=== PATIENT | male | born 1965 | race Caucasian/White ===

== ENCOUNTER 2023-03-11 10:41 | Emergency (ER) | payer BC, SELFPAY ==
[2023-03-11 10:47] VITALS: BP 141/101; PULSE 61; RESP 12; TEMP 36.5; O2SAT 96; BMI 32.5
[2023-03-11 10:50] VITALS: BP 141/101; PULSE 55; RESP 12; O2SAT 93
--- NOTE | 2023-03-11 10:55 | ED.DIZZY1 ---
HPI - Dizziness General Chief Complaint: Dizziness Stated Complaint: DIZZINESS Time Seen by Provider: 03/11/23 10:55 Source: patient Mode of arrival: walk-in History of Present Illness HPI Narrative: Patient Onset of the emergency department complaining of dizziness. Patient states he woke up this morning feeling like he is drunk. He has not drank any alcohol. He has not had any trauma. Feels like he has an ear infection but denies any ear pain, nasal congestion or upper respiratory infection symptoms. Denies any palpitations, diaphoresis. Patient called his doctor and was told to come to the emergency department since he is being set up as an outpatient for valve replacement at [facility]. Patient denies any chest pain, shortness of breath. He states the dizziness is worse when he is sitting up or moves position.Patient denies any fever, or chills. He denies any sore throat. He denies any cough. He denies any nausea, vomiting, diarrhea, constipation, or abdominal pain. Related Data Home Medications Medication Instructions Recorded Confirmed Lactobacillus acidophilus 500 500 mmu cells PO DAILY 03/11/23 03/11/23 million cell tablet ascorbic acid (vitamin C) 500 mg 500 mg PO DAILY 03/11/23 03/11/23 tablet,extended release (C Complex) cinnamon bark 500 mg capsule 500 mg PO DAILY 03/11/23 03/11/23 (Cinnamon) diclofenac sodium 75 mg 75 mg PO Q12H 03/11/23 03/11/23 tablet,delayed release ezetimibe 10 mg tablet 10 mg PO DAILY 03/11/23 03/11/23 hydrocodone 5 mg-acetaminophen 325 1 tab PO Q4H 03/11/23 03/11/23 mg tablet pantoprazole 40 mg tablet,delayed 40 mg PO DAILY 03/11/23 03/11/23 release simvastatin 20 mg tablet 20 mg PO DAILY 03/11/23 03/11/23 Previous Rx's Medication Instructions Recorded meclizine 25 mg tablet 25 mg PO DAILY PRN dizziness or 03/11/23 vertigo #20 tabs Allergies Allergy/AdvReac Type Severity Reaction Status Date / Time No Known Drug Allergies Allergy Verified 03/11/23 10:52 Review of Systems ROS Status of ROS 10 or more systems reviewed and unremarkable except as noted in history and below Exam Narrative Exam Narrative: Nurses notes and vital signs reviewed and patient is not hypoxic. General: Nontoxic, Well-appearing and in no apparent distress. Skin: Warm, dry, no pallor noted. No Rash Head: Normocephalic, atraumatic. Neck: Supple, non-tender. Eye: Pupils are equal, round and EOMI. No scleral icterus. Ears, Nose, Mouth, and Throat: TM clear, Bilateral cerumen, no posterior oropharynx erythema or nasal mucosal hypertrophy, uvula is mid-line Oral mucosa is moist Cardiovascular: Regular Rate and Rhythm without murmur, gallop or rub. Respiratory: No accessory muscle use or respiratory distress. Lungs are clear to auscultation, no wheezing, rales or rhonchi Chest Wall: no tenderness Back: No midline thoracic or lumbar vertebral tenderness. No CVA tenderness Musculoskeletal: normal ROM, no calf or popliteal tenderness, no lower extremity edema/swelling GI: Abdomen is soft, non-distended. Normal bowel sounds. No masses appreciated. No tenderness to palpation. No rebound, guarding, or rigidity noted. Neurological: A&O x4. No cranial nerve dysfunction observed. No truncal ataxia. Moves all extremities. Sensation intact. Psychiatric: Cooperative and interactive. Normal mood and affect. Constitutional Vital Signs - 24 hr 03/11/23 10:47 03/11/23 10:50 03/11/23 12:02 Temperature 97.7 F Pulse Rate 55 L 54 L Pulse Rate [Monitor] 61 Respiratory Rate 12 12 16 Blood Pressure 141/101 H 158/98 H Blood Pressure [Right Arm] 141/101 H Pulse Oximetry 96 93 L 93 L Oxygen Delivery Method Room Air Course Vital Signs Vital signs: Vital Signs Temperature 97.7 F 03/11/23 10:47 Pulse Rate 61 03/11/23 10:47 Respiratory Rate 12 03/11/23 10:47 Blood Pressure 141/101 H 03/11/23 10:47 Pulse Oximetry 96 03/11/23 10:47 Oxygen Delivery Method Room Air 03/11/23 10:47 Temperature 97.7 F 03/11/23 10:47 Pulse Rate 54 L 03/11/23 12:02 Respiratory Rate 16 03/11/23 12:02 Blood Pressure 158/98 H 03/11/23 12:02 Pulse Oximetry 93 L 03/11/23 12:02 Oxygen Delivery Method Room Air 03/11/23 10:47 MDM - Dizziness MDM Narrative Medical decision making narrative: Patient was given Antivert. Cardiac workup and CT scan of the brain were ordered. Patient was given 1 L normal saline.His dizziness improved with Antivert. He was able to get up and walked about without any ataxia. Differential Diagnosis Differential diagnosis: Likely benign paroxysmal positional vertigo, orthostatic hypotension and acute vestibular neuronitis Lab Data Attestation: I reviewed the patient's lab results. Labs: Lab Results 03/11/23 Range/Units 10:57 WBC 5.9 (4.0-11.0) 10^3/uL RBC 5.67 (4.70-6.10) 10^6/uL Hgb 15.5 (14.0-18.0) g/dL Hct 46.9 (42.0-54.0) % MCV 82.7 (80.0-94.0) fL MCH 27.3 (25.9-34.0) pg MCHC 33.0 (29.9-35.2) g/dL RDW 13.9 (11.0-15.0) % Plt Count 210 (150-450) 10^3/uL MPV 10.5 (9.5-13.5) fL Neut % (Auto) 49.9 (43.0-75.0) % Lymph % (Auto) 39.0 (20.5-60.0) % Canadian % (Auto) 7.6 (1.7-12.0) % Eos % (Auto) 2.5 (0.9-7.0) % Baso % (Auto) 0.5 (0.2-2.0) % Neut # (Auto) 3.0 (1.4-6.5) 10^3/uL Lymph # (Auto) 2.3 (1.2-3.8) 10^3/uL Canadian # (Auto) 0.5 (0.3-0.8) 10^3/uL Eos # (Auto) 0.2 (0.0-0.7) 10^3/uL Baso # (Auto) 0.0 (0.0-0.1) 10^3/uL Abs Immat Gran (auto) 0.03 (0.00-0.03) 10^3/uL Imm/Tot Granulo (auto) 0.5 (0.0-0.5) % Sodium 141 (136-145) mmol/L Potassium 4.4 (3.5-5.1) mmol/L Chloride 104 (98-107) mmol/L Carbon Dioxide 24.3 (21.0-32.0) mmol/L Anion Gap 17.1 BUN 15.0 (7.0-18.0) mg/dL Creatinine 1.15 (0.70-1.30) mg/dL Est GFR ( Amer) >60 (>=60) Est GFR (Non-Af Amer) >60 (>=60) BUN/Creatinine Ratio 13.0 Glucose 109 H (74-106) mg/dL Calcium 8.6 (8.5-10.1) mg/dL Magnesium 2.0 (1.8-2.4) mg/dL Total Bilirubin 0.6 (0.2-1.0) mg/dL AST 41 H (15-37) U/L ALT 70 H (16-63) U/L Alkaline Phosphatase 60 (46-116) U/L Total Creatine Kinase 227 (39-308) U/L CK-MB (CK-2) 1.71 (<=3.60) ng/mL Myoglobin 66 (16-96) ng/mL Troponin I High Sens 7.3 (4.0-76.1) pg/mL Total Protein 6.9 (6.4-8.2) g/dL Albumin 3.8 (3.4-5.0) g/dL Globulin 3.1 g/dL Albumin/Globulin Ratio 1.2 ECG Data Attestation: I personally reviewed and interpreted this ECG as follows: Discharge Plan Discharge Chief Complaint: Dizziness Clinical Impression: Dizziness, BP (high blood pressure) Patient Disposition: Home, Self-Care Time of Disposition Decision: 13:27 Condition: Good Mode of Transportation: Private Vehicle Prescriptions / Home Meds: New meclizine 25 mg tablet 25 mg PO DAILY PRN (Reason: dizziness or vertigo) Qty: 20 0RF No Action simvastatin 20 mg tablet 20 mg PO DAILY pantoprazole 40 mg tablet,delayed release (DR/EC) 40 mg PO DAILY diclofenac sodium 75 mg tablet,delayed release (DR/EC) 75 mg PO Q12H ezetimibe 10 mg tablet 10 mg PO DAILY hydrocodone-acetaminophen 5-325 mg tablet 1 tab PO Q4H Lactobacillus acidophilus 500 million cell tablet 500 mmu cells PO DAILY ascorbic acid (vitamin C) [C Complex] 500 mg tablet extended release 500 mg PO DAILY cinnamon bark [Cinnamon] 500 mg capsule 500 mg PO DAILY Instructions: Dizziness (ED) Additional Instructions: high blood Stand Alone Forms: Portal Instructions Referrals: Giovanni Velasquez MD [Primary Care Provider] - 1 week AKI CORNELL [Physician] - 1 week
--- NOTE | 2023-03-11 11:21 | ECG_ITS ---
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
--- NOTE | 2023-03-11 11:22 | CT_ITS ---
The [address] [address] Patient Name: FLYNN ARNETT MRN: [id number] date: 1965 Sex: M Assigned Patient Location: ER Current Patient Location: ER Accession/Order Number: [id number] Exam Date: 03/11/2023 11:40 Report Date: 03/11/2023 11:59 At the request of: STACY ESTES Procedure: CT head/brain wo con EXAM: CT head/brain wo con HISTORY: dizziness COMPARISON: None. TECHNIQUE: Axial soft tissue and bone windows through the calvarium with coronal and sagittal reformats. CT dose reduction technique was used including Automated Exposure Control. FINDINGS: There is mild mucosal thickening with partial opacification of the anterior ethmoid air cells. The remainder of the paranasal sinuses and mastoid air cells are well aerated. No air-fluid levels. No extra-axial fluid collection. No intra-axial or extra-axial bleed. No mass effect or midline shift. The richards-white matter differentiation is preserved. There are subtle supratentorial deep white matter low attenuation lesions which are nonspecific but commonly attributed to chronic small vessel ischemic disease. The brain parenchymal volume is mildly reduced yet likely age-appropriate. The ventricles are nondilated. The basal cisterns are patent. The craniovertebral junction is unremarkable. IMPRESSION: 1. No acute intracranial abnormality. Electronically authenticated by: GLORIA STRANGE Date: 03/11/2023 11:59
--- NOTE | 2023-03-11 11:22 | XR_ITS ---
[address] [address] Patient Name: FLYNN ARNETT MRN: [id number] date: 1965 Sex: M Assigned Patient Location: ER Current Patient Location: ER Accession/Order Number: [id number] Exam Date: 03/11/2023 11:47 Report Date: 03/11/2023 12:04 At the request of: STACY ESTES Procedure: XR chest 2V EXAMINATION: XR chest 2V HISTORY: dizziness , chest pressure COMPARISON: XR chest 06/10/2017 FINDINGS: LUNGS: No significant pulmonary parenchymal abnormalities. VASCULATURE: No increased pulmonary vasculature. PLEURA: No pneumothorax, effusion, or pleural thickening. CARDIAC: No cardiomegaly or cardiac silhouette abnormality. MEDIASTINUM: No visible mass or adenopathy. BONES: No fracture or visible bone lesion. OTHER: Negative. IMPRESSION: 1. Normal examination. Electronically authenticated by: GILES LOYOLA Date: 03/11/2023 12:04
[2023-03-11 11:34] LABS: Basophils Percent Auto 0.5 % (0.2-2.0); Eosinophils Absolute Auto 0.2 10^3/uL (0.0-0.7); Eosinophils Percent Auto 2.5 % (0.9-7.0); Hematocrit 46.9 % (42.0-54.0); Hemoglobin 15.5 g/dL (14.0-18.0); Immature Granulocytes Abs Auto 0.03 10^3/uL (0.00-0.03); Immature Granulocytes Pct Auto 0.5 % (0.0-0.5); Lymphocytes Absolute Auto 2.3 10^3/uL (1.2-3.8); Mean Corpuscular Hemoglobin 27.3 pg (25.9-34.0); Mean Corpuscular Volume 82.7 fL (80.0-94.0); Mean Platelet Volume 10.5 fL (9.5-13.5); Monocytes Absolute Auto 0.5 10^3/uL (0.3-0.8); Monocytes Percent Auto 7.6 % (1.7-12.0); Neutrophils Percent Auto 49.9 % (43.0-75.0); Platelet Count 210 10^3/uL (150-450); Red Blood Count 5.67 10^6/uL (4.70-6.10); Red Cell Distribution Width 13.9 % (11.0-15.0); White Blood Count 5.9 10^3/uL (4.0-11.0)
[2023-03-11] MEDS: MECLIZINE HCL 12.5 MG TABLET 25 MG PO (11:56)
[2023-03-11] MEDS: 0.9 % SODIUM CHLORIDE 1,000 ML 999 ML IV (11:56)
[2023-03-11 12:02] VITALS: BP 158/98; PULSE 54; RESP 16; O2SAT 93
[2023-03-11 12:18] LABS: Sodium 141 mmol/L (136-145)
[2023-03-11 12:19] LABS: Anion Gap 17.1; Calcium 8.6 mg/dL (8.5-10.1); Carbon Dioxide 24.3 mmol/L (21.0-32.0); Chloride 104 mmol/L (98-107); Estimated GFR (African America >60 (>=60); Estimated GFR (Non-African Ame >60 (>=60); Glucose 109 mg/dL (74-106); Potassium 4.4 mmol/L (3.5-5.1)
[2023-03-11 12:21] LABS: Aspartate Amino Transferase 41 U/L (15-37); Bilirubin Total 0.6 mg/dL (0.2-1.0)
[2023-03-11 12:22] LABS: Alanine Aminotransferase 70 U/L (16-63); Alkaline Phosphatase 60 U/L (46-116); Creatine Kinase 227 U/L (39-308); Creatine Kinase MB 1.71 ng/mL (<=3.60); Myoglobin 66 ng/mL (16-96); Total Protein 6.9 g/dL (6.4-8.2); Troponin I High Sensitivity 7.3 pg/mL (4.0-76.1)
[2023-03-11 12:23] LABS: Albumin Globulin Ratio 1.2; Albumin Level 3.8 g/dL (3.4-5.0); Globulin 3.1 g/dL
[2023-03-11 13:38] VITALS: BP 145/94; PULSE 59; RESP 18; O2SAT 97
== END 2023-03-11 13:39 | disposition home or self-care (01) ==
PROVIDERS: Emergency Provider Emergency Medicine; PCP Family Medicine
DX: R42 Dizziness and giddiness (principal); I10 Essential (primary) hypertension; Z79.899 Other long term (current) drug therapy
CPT/HCPCS: 36415; 70450; 71046; 80053; 82550; 82553; 83735; 83874; 84484; 85025; 93005; 96360; 99285

== ENCOUNTER 2023-05-19 15:51 | Outpatient (OUT) | payer BC, SELFPAY | END 2023-05-19 15:52 | disposition home or self-care (01) | LOC: LAB 15:59 | PROVIDERS: PCP Family Medicine | DX: R01.1 Cardiac murmur, unspecified (principal); I34.1 Nonrheumatic mitral (valve) prolapse; E13.69 Other specified diabetes mellitus with other specified complication; Z01.810 Encounter for preprocedural cardiovascular examination; R42 Dizziness and giddiness | CPT/HCPCS: 87081 ==

== ENCOUNTER 2023-07-31 07:05 | Outpatient (RCR) | payer BC, SELFPAY ==
--- NOTE | 2023-07-14 14:32 | CR1_ITS ---
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
--- NOTE | 2023-08-14 12:34 | CR1_ITS ---
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
== END 2023-09-07 11:11 | disposition home or self-care (01) ==
LOC: CR 07:05
PROVIDERS: PCP Family Medicine; Visit Provider Family Medicine
DX: Z95.2 Presence of prosthetic heart valve (principal)
CPT/HCPCS: 93797; 93798

== ENCOUNTER 2023-09-25 13:50 | Outpatient (OUT) | payer BC, SELFPAY ==
--- NOTE | 2023-09-25 14:30 | CA_ITS ---
Patient Name Site Name FLYNN ARNETT [facility] Account No Medical Record Number Age Sex Date Time [id number] [facility]:[id number] M 09/25/2023 14:03 At the Request Of DANIEL JACOB ECHOCARDIOGRAM REPORT PROCEDURE: CA ECHO DOPPLER COMPLETE INDICATIONS: Diastolic heart failure, s/p mitral valve repair (13 weeks) COMPARISON: None. DESCRIPTION: COMPLETE ECHOCARDIOGRAM Real-time transthoracic echocardiography with 2D, M-mode, spectral and color flow Doppler performed. QUALITY: Technical quality was good. LEFT VENTRICLE: Normal chamber size. Mild concentric left ventricular hypertrophy. Normal systolic function. LV EF: Normal left ventricular ejection fraction, (55-60%). DIASTOLIC: ATRIAL SEPTUM: Visually appears intact. LEFT ATRIUM: Moderate dilatation. RIGHT ATRIUM: Normal chamber size. RIGHT VENTRICLE: Normal chamber size. Normal right ventricular systolic function. TRICUSPID VALVE: Normal mobility and thickness. No stenosis with trivial regurgitation. No evidence of pulmonary hypertension. RVSP 18 mmHg MITRAL VALVE: S/p surgical repair. Trivial mitral regurgitation. MVA (VTI) 2.3 cm2, PHT 149. Mildly elevated diastolic gradients [4 mmHg]. AORTIC VALVE: Normal trileaflet appearance. No visible sclerosis. Normal leaflet mobility. No evidence of aortic valve stenosis. AORTIC ROOT: Mildly dilated, measuring 3.9 cm. The ascending aorta measures 3.7 cm. PULMONIC VALVE: Normal thickness and mobility. No stenosis. Trivial regurgitation. PERICARDIUM: No evidence of pericardial effusion. IVC: Collapses with inspirations. IVC is normal in size. PLEURA: CONCLUSION: 1. Concentric left ventricular hypertrophy with normal systolic function. 2. Normal right ventricular size and systolic function. 3. The mitral valve is status post surgical repair with mildly elevated diastolic gradients and no significant regurgitation. 4. Normal right-sided pressures. 5. Mildly dilated aortic root measuring 3.9 cm. Adult Echocardiography Procedure Report Left Ventricle LVEDD (3.7 - 5.6 cm): 5.43 cm LVESD (2.2 - 4.0 cm): 3.28 cm LVIVS thickness (0.6 - 1.2 cm): 0.98 cm LVPW thickness (0.5 - 1.0 cm): 1.16 cm e': 0.06 m/s E - e': 21.52 LVOT Max Gradient: 4.58 mm[Hg] LVOT Area (cm2): 1.07 m/s Peak Velocity (LVOT): 1.07 m/s Mean Velocity (LVOT): 0.74 m/s LVOT Diameter 2.73 cm Left Atrium LA Volume Index (2D A2C): 46.79 ml/m2 Left Atrium Systolic Dimension: 4.40 cm Mitral Valve MV E to A Ratio: 0.90 Mitral Valve A-Wave Peak Velocity: 1.38 m/s Mitral Valve E-Wave Peak Velocity: 1.23 m/s Right Ventricle Aorta AO Root Diam: 3.86 cm Ascending Ao Diam: 3.69 cm Aortic Valve AoV Area (Peak Donal): 6.21 cm2, 6.21 cm2 AoV Area (VTI): 5.86 cm2, 5.86 cm2 Peak Velocity(Antegrade Flow): 1.01 m/s Peak Gradient(Antegrade Flow): 4.07 mm[Hg] Mean Velocity(Antegrade Flow): 0.74 m/s Mean Gradient(Antegrade Flow): 2.46 mm[Hg] Velocity Time Integral: 22.88 cm Tricuspid Valve Peak Velocity (Regurgitant Flow): 1.95 m/s Pulmonic Valve Peak Velocity: 1.01 m/s Peak Gradient: 4.80 mm[Hg], 3.44 mm[Hg] Right Atrium Right Atrium Systolic Pressure: 42.18 ml, 42.18 ml Dictated by: Rony Flowers M.D. on 09/30/2023 at 18:51 Approved by: Rony Flowers M.D. on 09/30/2023 at 19:01
== END 2023-09-25 13:51 | disposition home or self-care (01) ==
LOC: CARD 13:50
PROVIDERS: PCP Family Medicine; Visit Provider Internal Medicine Interventional Cardiology
DX: Q23.3 Congenital mitral insufficiency (principal)
CPT/HCPCS: 93306

== ENCOUNTER 2023-10-31 11:40 | Outpatient (OUT) | payer BC, SELFPAY ==
--- OUTSIDE RECORDS SUMMARY | 2023-10-31 11:43 | XMS_ITS | CCD ---
Author Name Unknown Address [id number] [place] [address] Organization [facility] Care Team Providers Care Commissioner Of Conciliation Name Role Phone Lauren Velasquez Primary Care Physician Colt STUART Attending Unavailable MONICA BABIN Admitting Unavailable MONICA BABIN Attending Unavailable MONICA BABIN Consulting Unavailable HOY ., DR AGUILAR Primary Care Unavailable HOY ., DR AGUILAR Primary Care Unavailable HOY ., DR AGUILAR Admitting Unavailable HOY ., DR AGUILAR Attending Unavailable HOY ., DR AGUILAR Primary Care Unavailable HOY ., DR AGUILAR Admitting Unavailable HOY ., DR AGUILAR Attending Unavailable HOY ., DR AGUILAR Consulting Unavailable GLORIA STRANGE Consulting Unavailable HOY ., DR AGUILAR Primary Care Unavailable HOY ., DR AGUILAR Admitting Unavailable HOY ., DR AGUILAR Attending Unavailable HOY ., DR AGUILAR Consulting Unavailable HOY ., DR AGUILAR Primary Care Unavailable ELTAHAWY, DR SANCHEZ Admitting Unavailable ELTAHAWY, DR SANCHEZ Attending Unavailable ELTAHAWY, DR SANCHEZ Consulting Unavailable Monica Jackson Unavailable ELTAHAWY, ADONIS Attending Unavailable ELTAHAWY, EHAB Admitting Unavailable DEVAUGHN RESENDEZ Attending Unavailable DEVAUGHN RESENDEZ Admitting Unavailable AISSATOU WILLIAMSON Referring Unavailabl e AISSATOU WILLIAMSON Referring Unavailabl e DEVAUGHN RESENDEZ Referring Unavailable DEVAUGHN RESENDEZ Referring Unavailable DEVAUGHN RESENDEZ Referring Unavailable ELTAHAWY, EHAB Referring Unavailable ELTAHAWY, TAMMYAB Referring Unavailable AISSATOU WILLIAMSON Referring Unavailabl e AISSATOU WILLIAMSON Referring Unavailabl e AISSATOU WILLIAMSON Referring Unavailabl e KULAKOWSKI, AISSATOU Foreman Referring Unavailabl e KULAKOWSKI, AISSATOU Foreman Referring Unavailabl e KULAKOWSKI, AISSATOU Foreman Referring Unavailabl e KULAKOWSKI, AISSATOU Foreman Referring Unavailabl e CARRIZO, DEVAUGHN Referring Unavailable CARRIZO, DEVAUGHN Referring Unavailable KUHAMILTON, AISSATOU Foreman Attending Unavailabl e MILLA, FER Referring Unavailable CARRIZO, DEVAUGHN Attending Unavailable TERI, AISSATOU Foreman Referring Unavailabl e CARRIZO, DEVAUGHN Referring Unavailable KULAKOWSJER, AISSATOU Foreman Referring Unavailabl e KULAKOWSKI, AISSATOU Foreman Referring Unavailabl e CARRIZO, DEVAUGHN Referring Unavailable TERI, AISSATOU Foreman Referring Unavailabl e MILLA, FER Referring Unavailable MILLA, FER Referring Unavailable MILLA, FER Referring Unavailable RICARDO KONG Attending Unavailable ELTAHAWY, Attending Unavailable MILLA, FER Referring Unavailable EL[facility]HAWY, [facility] Attending Unavailable TERI, AISSATOU Foreman Referring Unavailabl e CARRIZO, DEVAUGHN Referring Unavailable KULAKOJACQUELINE, AISSATOU Foreman Referring Unavailabl e KULAKOWSKI, AISSATOU Foreman Referring Unavailabl e KULAKOWSKI, AISSATOU Foreman Referring Unavailabl e KULAKOWSKI, AISSATOU Foreman Referring Unavailabl e KULAKOWSKI, AISSATOU Foreman Referring Unavailabl e MILLA, FER Attending Unavailable TERI, AISSATOU Foreman Referring Unavailabl e CARRIZO, DEVAUGHN Referring Unavailable Medications Current Medications Medication Drug Class(es) Dates Sig (Normalized) Sig (Original) acetaminophen 325 mg / HYDROcodone bitartrate 5 mg oral tablet (2 sources) Opioid Agonist Start: 12-19-2022 take 1 tablet by mouth four times daily as needed for pain acetaminophen-hyd rocodone 325 mg-5 mg oral tablet 1 tab(s), Oral, QID as needed for pain, Refill(s) 0 Start Date: 12/19/22 Status: Ordered take 1 tablet by nikolay th every six hours HYDROcodone-Acetaminophen 5-325 MG 1 tab let as needed Orally every 6 hrs Active carbamide peroxide 65 mg/ml otic solution (1 source) Debrox 6.5 % 5 drops into affected ear Otic Twice a day for 4 days Active Ciprofloxacin / Hydrocortisone (1 source) Corticosteroid, Quinolone Antimicrobial Ciprofloxacin-Hydr ocortisone 0.2-1 % 3 drops into affected ear left ear Twice a day for 7 days Active colistin 3 mg/ml / hydrocortisone 10 mg/ml / neomycin 3.3 mg/ml / thonzonium bromide 0.5 mg/ml otic suspension (1 source) Aminoglycoside Antibacterial, Corticosteroid Cortisporin-TC 3.3-3-10-0.5 MG/ML 5 drops into affected ear Otic Three times a day Active diclofenac sodium 75 mg delayed release oral tablet (2 sources) Nonsteroidal Anti-inflammatory Drug Start: 12-20-19 take 1 tablet by mouth twice daily diclofenac sodium 75 mg Oral EC Tab 75 mg = 1 tab(s), Oral, BID, Refills(s) 0 Start Date: 12/19/22 Status: Ordered ezetimibe 10 mg oral tablet (2 sources) Dietary Cholesterol Absorption Inhibitor Start: 12-20-19 take 1 tablet by mouth once daily Zetia 10 mg Tab 10 mg = 1 tab(s), Oral, Daily, Refills(s) 0 Start Date: 12/19/22 Status: Ordered ibuprofen 800 mg oral tablet (1 source) Nonsteroidal Anti-inflammatory Drug Start: 05-10-20 take 1 tablet by mouth three times daily at mealtime as needed Ibuprofen 800 MG 1 tablet with food or milk as needed Orally Three times a day for 10 days May, Active lactobacillus acidophilus 100 mg oral capsule (1 source) Acidophilus 100 MG as directed Orally Active levoFLOXacin 750 mg oral tablet (1 source) Quinolone Antimicrobial take 1 tablet by mouth once daily Levaquin 750 MG 1 tablet Orally Once a day Active naloxone hydrochloride 40 mg/ml nasal spray (1 source) Opioid Antagonist Start: 12-20-19 Narcan 4 mg/0.1 mL nasal spray 4 mg, Nasal, As Directed, as directed, # 1 kit(s), Refills(s) 0 Start Date: 12/19/22 Status: Ordered pantoprazole 40 mg extended release oral tablet (2 sources) Proton Pump Inhibitor Start: 01-13-20 take 40 mg by mouth once daily Protonix 40 mg, Oral, Daily, Refills(s) 0 Start Date: 01/13/20 Status: Ordered take 1 tablet by [facility] every twenty-four hours Pantoprazole Sodium 40 MG 1 tablet Orall y Once a day Active simvastatin 20 mg oral tablet (2 sources) HMG-CoA Reductase Inhibitor Start: 01-13-2020 take 1 tablet by mouth once daily at bedtime Zocor 20 mg Tab 20 mg = 1 tab(s), Oral, Once a day (at bedtime), Refills(s) 0 Start Date: 01/13/20 Status: Ordered tiZANidine 4 mg oral capsule (1 source) Central alpha-2 Adrenergic Agonist Start: 01-13-2020 take 2 capsules by mouth three times daily as needed for muscle spasms tizanidine 4 mg oral capsule 8 mg = 2 cap(s), Oral, TID, PRN Spasm, Refills(s) 0 Start Date: 01/13/20 Status: Ordered Vitamin C 500 MG (1 source) take 1 tablet by mouth once daily Vitamin C 500 MG 1 tablet Orally Once a day Active Problems Active Problems Problem Classification Problem Date Documented Date Episodic/Chronic Abdominal hernia (7 sources) Obstructed umbilical hernia; Translations: [Umbilical hernia with obstruction, without gangrene] Onset: 12-16-2022 Episodic Cardiac and circulatory congenital anomalies (2 sources) Congenital mitral insufficiency; Translations: [Congenital mitral insufficiency] Onset: 05-27-2023 Chronic Cardiac dysrhythmias (2 sources) Unspecified atrial fibrillation; Translations: [Unspecified atrial fibrillation] Onset: 05-14-2023 Chronic Congestive heart failure; nonhypertensive (2 sources) Acute diastolic (congestive) heart failure; Translations: [Acute diastolic (congestive) heart failure] Onset: 06-01-2023 Chronic Coronary atherosclerosis and other heart disease (2 sources) Atherosclerotic heart disease of campo coronary artery without angina pectoris; Translations: [Atherosclerotic heart disease of campo coronary artery without angina pectoris] Onset: 05-27-2023 Chronic Diabetes mellitus with complications (4 sources) Type 2 diabetes mellitus with other specified complication; Translations: [Other specified diabetes mellitus with other specified complication] Onset: 01-14-2023 Chronic Diabetes mellitus without complication (3 sources) Diabetes mellitus; Translations: [Type 2 diabetes mellitus without complications] Onset: 01-14-2023 12-19-2022 Chronic Diabetes mellitus without complication (1 source) Prediabetes 01-14-2020 Episodic Disorders of lipid metabolism (3 sources) Hyperlipidemia; Translations: [Hyperlipidemia, unspecified] Onset: 01-14-2023 12-19-2022 Chronic Diverticulosis and diverticulitis (1 source) Diverticulosis of intestine, part unspecified, without perforation or abscess without bleeding; Translations: [DVRTCLOS PRT UNS NO PERF/ABSC NO BL] Onset: 12-22-2022 Chronic Esophageal disorders (3 sources) Gastroesophageal reflux disease; Translations: [Gastro-esophageal reflux disease without esophagitis] Onset: 01-14-2023 12-19-2022 Chronic Essential hypertension (2 sources) Essential (primary) hypertension; Translations: [Essential (primary) hypertension] Onset: 05-28-2023 Chronic Heart valve disorders (6 sources) Nonrheumatic mitral (valve) prolapse; Translations: [Rheumatic mitral valve disease, unspecified] Onset: 05-14-2023 Chronic Hypertension with complications and secondary hypertension (2 sources) Hypertensive heart disease with heart failure; Translations: [Hypertensive heart disease with heart failure] Onset: 06-30-2023 Chronic Other circulatory disease (2 sources) Other specified symptoms and signs involving the circulatory and respiratory systems; Translations: [Other specified symptoms and signs involving the circulatory and respiratory systems] Onset: 05-31-2023 Episodic Other ear and sense organ disorders (1 source) Otalgia, left ear Episodic Other ear and sense organ disorders (1 source) Unspecified acute noninfective otitis externa, left ear Episodic Other ear and sense organ disorders (1 source) Impacted cerumen, left ear Episodic Other ear and sense organ disorders (1 source) Impacted cerumen, right ear Episodic Other hereditary and degenerative nervous system conditions (1 source) Restless legs 12-19-2022 Chronic Other nutritional; endocrine; and metabolic disorders (1 source) Body mass index 30+ - obesity 01-09-2023 Chronic Other nutritional; endocrine; and metabolic disorders (1 source) Obesity 02-12-2015 Chronic Residual codes; unclassified (2 sources) Hypersomnia, unspecified; Translations: [Hypersomnia, unspecified] Onset: 05-27-2023 Chronic Past or Other Problems Problem Classification Problem Date Documented Da te Episodic/Chronic Complications of surgical procedures or medical care (2 sources) Other postprocedural complications and disorders of respiratory system, not elsewhere classified; Translations: [Other postprocedural complications and disorders of respiratory system, not elsewhere classified] Onset: 05-27-2023 Episodic Conditions associated with dizziness or vertigo (2 sources) Dizziness and giddiness; Translations: [Dizziness and giddiness] Onset: 05-14-2023 Episodic Fever of unknown origin (1 source) Fever, unspecified; Translations: [FEVER UNSPECIFIED] Onset: 03-12-2022 Episodic Heart valve disorders (4 sources) Heart murmur; Translations: [Cardiac murmur, unspecified] Onset: 12-22-2022 12-19-2022 Episodic Other aftercare (2 sources) Encounter for therapeutic drug level monitoring; Translations: [Encounter for therapeutic drug level monitoring] Onset: 05-14-2023 Episodic Other gastrointestinal disorders (4 sources) Diarrhea, unspecified; Translations: [DIARRHEA UNSPECIFIED] Onset: 03-06-2022 Episodic Other screening for suspected conditions (not mental disorders or infectious disease) (3 sources) Encounter for screening for malignant neoplasm of prostate; Translations: [Abnormal findings on diagnostic imaging of heart and coronary circulation] Onset: 01-20-2023 Episodic Results Test Name Value Interpretation Reference Range Facility Orders Onlyon 08-26-2023 Orders Only Normal [facility] 36on 07-22-2023 36 Per [facility] Cardiac Reha b, patient is requesting to return to work next week. He states his employer has arranged for him to do light duty. Is this ok with you? Please advise. Thanks. Normal [facility] Documentationon 07-16-2023 Documentation [facility] 37on 06-18-2023 37 Normal [facility] 30on 06-05-2023 30 The patient is Moderately Stable - Low risk of patient condition declining or worsening The patient's goals for the shift include rest The clinical goals for the shift include maintain hemodynamics Normal [facility] BASIC METABOLIC PANELon 09-0 Anion gap [Moles/Vol] 9 mmol/L Normal - [facility] Comment on above: Performed By: #### L [id number] ####[facility] ([facility])[address] [place] [address] Calcium [Mass/Vol] 8.4 mg/dL Low 8.6-10.3 [facility] Comment on above: Performed By: #### L [id number] ####[facility] ([facility])[address] [place] [address] Chloride [Moles/Vol] 101 mmol/L Normal 98-107 [facility] Comment on above: Performed By: #### L [id number] ####[facility] ([facility])[address] [place] [address] CO2 [Moles/Vol] 27 mmol/L Normal 21-31 [facility] Comment on above: Performed By: #### L [id number] ####[facility] ([facility])[address] [place] [address] Creatinine [Mass/Vol] 1.12 mg/dL Normal 0.60-1.30 [facility] Comment on above: Performed By: #### L [id number] ####[facility] ([facility])[address] [place] [address] GLOMERULAR FILTRATION RATE ML/MIN/1.73 SQ M.PREDICTED 58.1 mL/min/1.73m*2 Low >60.0 [facility] Comment on above: Result Comment: The [facility]???s estimated glomerular filtration rate (eGFR) will no longer include consideration of race in its calculation. The National Kidney Foundation???s eGFR Task Force developed new recommendations for the estimation of the glomerular filtration rate in the [place] They recommend immediate implementation of the new equation refit without the race variable in all laboratories because the calculation does not include race. In addition to not including race in the calculation and reporting, it included diversity in its development, and has acceptable performance characteristics and potential consequences that do not disproportionately affect any one group of individuals. Performed By: #### L [id number] ####[facility] ([facility])[address] [place] [address] Glucose [Mass/Vol] 130 mg/dL High 70-100 [facility] Comment on above: Performed By: #### L [id number] ####[facility] ([facility])[address] [place] [address] Potassium [Moles/Vol] 4.3 mmol/L Normal 3.5-5.1 [facility] Comment on above: Performed By: #### L [id number] ####[facility] ([facility])[address] [place] [address] Sodium [Moles/Vol] 133 mmol/L Low 136-145 [facility] Comment on above: Performed By: #### L [id number] ####[facility] ([facility])[address] [place] [address] Urea nitrogen [Mass/Vol] 21 mg/dL Normal 7-25 [facility] Comment on above: Performed By: #### L [id number] ####[facility] ([facility])[address] [place] [address] UREA NITROGEN/CREATININE (MASS RATIO) IN SER/PLAS 18.8 Normal [facility] Comment on above: Performed By: #### L [id number] ####[facility] ([facility])[address] [place] [address] CBCon 06-05-2023 Erythrocyte distribution width (RBC) [Ratio] 14.2 % Normal 11.5-15.0 [facility] Comment on above: Performed By: #### L [id number] ####[facility] ([facility])[address] [place] [address] ERYTHROCYTE MEAN CORPUSCULAR HEMOGLOBIN CONCENTRATION (G/DL) BY AUTOMATED 32.9 g/dL Normal 32.0-35.0 [facility] Comment on above: Performed By: #### L [id number] ####[facility] ([facility])[address] [place] [address] Hematocrit (Bld) [Volume fraction] 31.3 % Low 36.0-55.0 [facility] Comment on above: Performed By: #### L [id number] ####[facility] ([facility])[address] [place] [address] Hemoglobin (Bld) [Mass/Vol] 10.3 g/dL Low 12.0-17.0 [facility] Comment on above: Performed By: #### L [id number] ####[facility] ([facility])[address] [facility] [place] [address] MCH (RBC) [Entitic mass] 27.2 pg Normal 27.0-33.0 [facility] Comment on above: Performed By: #### L [id number] ####[facility] ([facility])[address] [place] [address] MCV (RBC) [Entitic vol] 82.6 fL Normal 82.0-98.0 [facility] Comment on above: Performed By: #### L [id number] ####[facility] ([facility])[address] [facility] [place] [address] PLATELETS (10*3/UL) IN BLOOD AUTOMATED COUNT 365 10*3/uL Normal 150-400 [facility] Comment on above: Performed By: #### L [id number] ####[facility] ([facility])[place] [address] RBC (Bld) [#/Vol] 3.79 10*6/uL Low 3.80-5.70 [facility] Comment on above: Performed By: #### L [id number] ####[facility] ([facility])[place] [facility] [place] [address] WBC (Bld) [#/Vol] 11.26 10*3/uL High 4.00-10.60 [facility] Comment on above: Performed By: #### L [id number] ####[facility] ([facility])[place] [address] DSon 06-05-2023 DS Normal [facility] MAGNESIUMon 06-05-2023 Magnesium [Mass/Vol] 1.9 mg/dL Normal 1.9-2.7 [facility] Comment on above: Performed By: #### L [id number] ####[facility] ([facility])[address] [place] [address] NURSNOTEon 06-05-2023 NURSNOTE Discharge instructio ns reviewed with pt and pt ; copy of paperwork given to pt. Pt assisted into wheelchair and transported to front lobby for discharge to home. Normal [facility] POCT GLUCOSE METER UNSOLICIT ED RESULTSon 06-05-2023 Glucose [Mass/Vol] 135 mg/dL High 70-105 [facility] Comment on above: Order Comment: Waive d Testing in the ED is performed under the ED CLIA certificate #[id number]. Result Comment: [email or web address] Performed By: #### L [id number] ####[facility] ([facility])[address] [place] [address] 30on 06-04-2023 30 Normal [facility] 30 [facility] BASIC METABOLIC PANELon 05-07 Anion gap [Moles/Vol] 9 mmol/L Normal 7-20 [facility] Comment on above: Performed By: #### L [id number] ####[facility] ([facility])[address] [place] [address] Calcium [Mass/Vol] 8.3 mg/dL Low 8.6-10.3 [facility] Comment on above: Performed By: #### L [id number] ####[facility] ([facility])[address] [place] [address] Chloride [Moles/Vol] 98 mmol/L Normal 98-107 [facility] Comment on above: Performed By: #### L [id number] ####[facility] ([facility])[address] [place] [address] CO2 [Moles/Vol] 29 mmol/L Normal -31 [facility] Comment on above: Performed By: #### L [id number] ####[facility] ([facility])[address] [place] [address] Creatinine [Mass/Vol] 1.09 mg/dL Normal 0.60-1.30 [facility] Comment on above: Performed By: #### L [id number] ####[facility] ([facility])[address] [place] [address] GLOMERULAR FILTRATION RATE ML/MIN/1.73 SQ M.PREDICTED 60.0 mL/min/1.73m*2 Low >60.0 [facility] Comment on above: Result Comment: The [facility]???s estimated glomerular filtration rate (eGFR) will no longer include consideration of race in its calculation. The National Kidney Foundation???s eGFR Task Force developed new recommendations for the estimation of the glomerular filtration rate in the [place] They recommend immediate implementation of the new equation refit without the race variable in all laboratories because the calculation does not include race. In addition to not including race in the calculation and reporting, it included diversity in its development, and has acceptable performance characteristics and potential consequences that do not disproportionately affect any one group of individuals. Performed By: #### L [id number] ####[facility] ([facility])[address] [place] [address] Glucose [Mass/Vol] 125 mg/dL High 70-100 [facility] Comment on above: Performed By: #### L [id number] ####[facility] ([facility])[address] [place] [address] Potassium [Moles/Vol] 3.8 mmol/L Normal 3.5-5.1 [facility] Comment on above: Performed By: #### L [id number] ####[facility] ([facility])[address] [place] [address] Sodium [Moles/Vol] 132 mmol/L Low 136-145 [facility] Comment on above: Performed By: #### L [id number] ####[facility] ([facility])[address] [place] [address] Urea nitrogen [Mass/Vol] 27 mg/dL High 7-25 [facility] Comment on above: Performed By: #### L [id number] ####[facility] ([facility])[address] [place] [address] UREA NITROGEN/CREATININE (MASS RATIO) IN SER/PLAS 24.8 Normal [facility] Comment on above: Performed By: #### L [id number] ####[facility] ([facility])[address] [place] [address] CBCon 06-04-2023 Erythrocyte distribution width (RBC) [Ratio] 13.9 % Normal 11.5-15.0 [facility] Comment on above: Performed By: #### L [id number] ####[facility] ([facility])[address] [place], [place] [address] ERYTHROCYTE MEAN CORPUSCULAR HEMOGLOBIN CONCENTRATION (G/DL) BY AUTOMATED 33.2 g/dL Normal 32.0-35.0 [facility] Comment on above: Performed By: #### L [id number] ####[facility] ([facility])[address] [place] [address] Hematocrit (Bld) [Volume fraction] 33.1 % Low 36.0-55.0 [facility] Comment on above: Performed By: #### L [id number] ####[facility] ([facility])[address] [place] [address] Hemoglobin (Bld) [Mass/Vol] 11.0 g/dL Low 12.0-17.0 [facility] Comment on above: Performed By: #### L [id number] ####[facility] ([facility])[address] [place] [address] MCH (RBC) [Entitic mass] 27.6 pg Normal 27.0-33.0 [facility] Comment on above: Performed By: #### L [id number] ####[facility] ([facility])[address] [place] [address] MCV (RBC) [Entitic vol] 83.0 fL Normal 82.0-98.0 [facility] Comment on above: Performed By: #### L [id number] ####[facility] ([facility])[address] [place] [address] PLATELETS (10*3/UL) IN BLOOD AUTOMATED COUNT 372 10*3/uL Normal 150-400 [facility] Comment on above: Performed By: #### L [id number] ####[facility] ([facility])[address] [place] [address] RBC (Bld) [#/Vol] 3.99 10*6/uL Normal 3.80-5.70 [facility] Comment on above: Performed By: #### L [id number] ####[facility] ([facility])[address] [place] [address] WBC (Bld) [#/Vol] 11.64 10*3/uL High 4.00-10.60 [facility] Comment on above: Performed By: #### L [id number] ####[facility] ([facility])[address] [place] [address] MAGNESIUMon 06-04-2023 Magnesium [Mass/Vol] 2.0 mg/dL Normal 1.9-2.7 [facility] Comment on above: Performed By: #### L [id number] ####[facility] ([facility])[address] [place] [address] POCT GLUCOSE METER UNSOLICIT ED RESULTSon 06-04-2023 Glucose [Mass/Vol] 159 mg/dL High 70-105 [facility] Comment on above: Order Comment: Waive d Testing in the ED is performed under the ED CLIA certificate #[id number]. Result Comment: [email or web address] Performed By: #### L [id number] ####[facility] ([facility])[address] [place] [address] Glucose [Mass/Vol] 188 mg/dL High 70-105 [facility] Comment on above: Order Comment: Waive d Testing in the ED is performed under the ED CLIA certificate #[id number]. Result Comment: than [email or web address] Performed By: #### L [id number] ####[facility] ([facility])[address] [place] [address] Glucose [Mass/Vol] 185 mg/dL High 70-105 [facility] Comment on above: Order Comment: Waive d Testing in the ED is performed under the ED CLIA certificate #[id number]. Result Comment: than [email or web address] Performed By: #### L [id number] ####[facility] ([facility])[address] [place] [address] Glucose [Mass/Vol] 141 mg/dL High 70-105 [facility] Comment on above: Order Comment: Waive d Testing in the ED is performed under the ED CLIA certificate #[id number]. Result Comment: than sen2 Performed By: #### L [id number] ####[facility] ([facility])[address] [place] [address] 30on 06-03-2022 30 The patient is Moderately Stable - Low risk of patient condition declining or worsening The patient's goals for the shift include rest The clinical goals for the shift include decreased resp support Normal [facility] 30 Normal [facility] BASIC METABOLIC PANELon 05-07 Anion gap [Moles/Vol] 13 mmol/L Normal 7-20 [facility] Comment on above: Performed By: #### L [id number] ####[facility] ([facility])[address] [place] [address] Calcium [Mass/Vol] 9.0 mg/dL Normal 8.6-10.3 [facility] Comment on above: Performed By: #### L [id number] ####[facility] ([facility])[address] [place] [address] Chloride [Moles/Vol] 91 mmol/L Low 98-107 [facility] Comment on above: Performed By: #### L [id number] ####[facility] ([facility])[address] [place] [address] CO2 [Moles/Vol] 31 mmol/L Normal 21-31 [facility] Comment on above: Performed By: #### L [id number] ####[facility] ([facility])[address] [place] [address] Creatinine [Mass/Vol] 1.40 mg/dL High 0.60-1.30 [facility] Comment on above: Performed By: #### L [id number] ####[facility] ([facility])[address] [place] [address] GLOMERULAR FILTRATION RATE ML/MIN/1.73 SQ M.PREDICTED 44.4 mL/min/1.73m*2 Low >60.0 [facility] Comment on above: Result Comment: The [facility]???s estimated glomerular filtration rate (eGFR) will no longer include consideration of race in its calculation. The National Kidney Foundation???s eGFR Task Force developed new recommendations for the estimation of the glomerular filtration rate in the [place] They recommend immediate implementation of the new equation refit without the race variable in all laboratories because the calculation does not include race. In addition to not including race in the calculation and reporting, it included diversity in its development, and has acceptable performance characteristics and potential consequences that do not disproportionately affect any one group of individuals. Performed By: #### L [id number] ####[facility] ([facility])[address] [place] [address] Glucose [Mass/Vol] 179 mg/dL High 70-100 [facility] Comment on above: Performed By: #### L [id number] ####[facility] ([facility])[address] [facility] [place] [address] Potassium [Moles/Vol] 3.6 mmol/L Normal 3.5-5.1 [facility] Comment on above: Performed By: #### L [id number] ####[facility] ([facility])[address] [place] [address] Sodium [Moles/Vol] 131 mmol/L Low 136-145 [facility] Comment on above: Performed By: #### L [id number] ####[facility] ([facility])[address] [place] [place] [address] Urea nitrogen [Mass/Vol] 33 mg/dL High 7-25 [facility] Comment on above: Performed By: #### L [id number] ####[facility] ([facility])[address] [place] [address] UREA NITROGEN/CREATININE (MASS RATIO) IN SER/PLAS 23.6 Normal [facility] Comment on above: Performed By: #### L [id number] ####[facility] ([facility])[address] [place] [address] CBCon 06-03-2023 Erythrocyte distribution width (RBC) [Ratio] 13.9 % Normal 11.5-15.0 [facility] Comment on above: Performed By: #### L [id number] ####[facility] ([facility])[address] [address] ERYTHROCYTE MEAN CORPUSCULAR HEMOGLOBIN CONCENTRATION (G/DL) BY AUTOMATED 32.1 g/dL Normal 32.0-35.0 [facility] Comment on above: Performed By: #### L [id number] ####[facility] ([facility])[address] [place] [address] Hematocrit (Bld) [Volume fraction] 33.6 % Low 36.0-55.0 [facility] Comment on above: Performed By: #### L [id number] ####[facility] ([facility])[address] [place] [address] Hemoglobin (Bld) [Mass/Vol] 10.8 g/dL Low 12.0-17.0 [facility] Comment on above: Performed By: #### L [id number] ####[facility] ([facility])[address] [place] [address] MCH (RBC) [Entitic mass] 26.6 pg Low 27.0-33.0 [facility] Comment on above: Performed By: #### L [id number] ####[facility] ([facility])[address] [place] [address] MCV (RBC) [Entitic vol] 82.8 fL Normal 82.0-98.0 [facility] Comment on above: Performed By: #### L [id number] ####[facility] ([facility])[address] [place] [address] PLATELETS (10*3/UL) IN BLOOD AUTOMATED COUNT 327 10*3/uL Normal 150-400 [facility] Comment on above: Performed By: #### L [id number] ####[facility] ([facility])[address] [place] [address] RBC (Bld) [#/Vol] 4.06 10*6/uL Normal 3.80-5.70 [facility] Comment on above: Performed By: #### L [id number] ####[facility] ([facility])[address] [place] [address] WBC (Bld) [#/Vol] 11.45 10*3/uL High 4.00-10.60 [facility] Comment on above: Performed By: #### L [id number] ####[facility] ([facility])[address] [place] [address] MAGNESIUMon 06-03-2023 Magnesium [Mass/Vol] 2.2 mg/dL Normal 1.9-2.7 [facility] Comment on above: Performed By: #### L [id number] ####[facility] ([facility])[address] [place] [address] POCT GLUCOSE METER UNSOLICIT ED RESULTSon 06-03-2023 Glucose [Mass/Vol] 126 mg/dL High 70-105 [facility] Comment on above: Order Comment: Waive d Testing in the ED is performed under the ED CLIA certificate #[id number]. Result Comment: [email or web address] Performed By: #### L [id number] ####[facility] ([facility])[address] [place] [address] Glucose [Mass/Vol] 110 mg/dL High 70-105 [facility] Comment on above: Order Comment: Waive d Testing in the ED is performed under the ED CLIA certificate #[id number]. Result Comment: [email or web address] Performed By: #### L [id number] ####[facility] ([facility])[address] [place] [address] Glucose [Mass/Vol] 207 mg/dL High 70-105 [facility] Comment on above: Order Comment: Waive d Testing in the ED is performed under the ED CLIA certificate #[id number]. Result Comment: [email or web address] Performed By: #### L [id number] ####[facility] ([facility])[address] [place] [address] Glucose [Mass/Vol] 166 mg/dL High 70-105 [facility] Comment on above: Order Comment: Waive d Testing in the ED is performed under the ED CLIA certificate #[id number]. Result Comment: [email or web address] Performed By: #### L [id number] ####[facility] ([facility])[address] [place] [address] 30on 06-02-2023 30 Normal [facility] 30 Normal [facility] BASIC METABOLIC PANELon 05-06 Anion gap [Moles/Vol] 12 mmol/L Normal 7-20 [facility] Comment on above: Performed By: #### L [id number] ####[facility] ([facility])[address] [place] [address] Calcium [Mass/Vol] 8.9 mg/dL Normal 8.6-10.3 [facility] Comment on above: Performed By: #### L [id number] ####[facility] ([facility])[address] [place] [address] Chloride [Moles/Vol] 90 mmol/L Low 98-107 [facility] Comment on above: Performed By: #### L [id number] ####[facility] ([facility])[address] [place] [address] CO2 [Moles/Vol] 33 mmol/L High 21-31 [facility] Comment on above: Performed By: #### L [id number] ####[facility] ([facility])[address] [place] [address] Creatinine [Mass/Vol] 1.33 mg/dL High 0.60-1.30 [facility] Comment on above: Performed By: #### L [id number] ####[facility] ([facility])[address] [place] [address] GLOMERULAR FILTRATION RATE ML/MIN/1.73 SQ M.PREDICTED 47.3 mL/min/1.73m*2 Low >60.0 [facility] Comment on above: Result Comment: The [facility]???s estimated glomerular filtration rate (eGFR) will no longer include consideration of race in its calculation. The National Kidney Foundation???s eGFR Task Force developed new recommendations for the estimation of the glomerular filtration rate in the [place] They recommend immediate implementation of the new equation refit without the race variable in all laboratories because the calculation does not include race. In addition to not including race in the calculation and reporting, it included diversity in its development, and has acceptable performance characteristics and potential consequences that do not disproportionately affect any one group of individuals. Performed By: #### L [id number] ####[facility] ([facility])[address] [place] [address] Glucose [Mass/Vol] 124 mg/dL High 70-100 [facility] Comment on above: Performed By: #### L [id number] ####[facility] ([facility])[address] [place] [address] Potassium [Moles/Vol] 3.8 mmol/L Normal 3.5-5.1 [facility] Comment on above: Performed By: #### L [id number] ####[facility] ([facility])[address] [place] [address] Sodium [Moles/Vol] 131 mmol/L Low 136-145 [facility] Comment on above: Performed By: #### L [id number] ####[facility] ([facility])[address] [place] [address] Urea nitrogen [Mass/Vol] 30 mg/dL High 7-25 [facility] Comment on above: Performed By: #### L [id number] ####[facility] ([facility])[address] [place] [address] UREA NITROGEN/CREATININE (MASS RATIO) IN SER/PLAS 22.6 Normal [facility] Comment on above: Performed By: #### L [id number] ####[facility] ([facility])[address] [place] [address] CBCon 06-02-2023 Erythrocyte distribution width (RBC) [Ratio] 13.9 % Normal 11.5-15.0 [facility] Comment on above: Performed By: #### L [id number] ####[facility] ([facility])[address] [place] [address] ERYTHROCYTE MEAN CORPUSCULAR HEMOGLOBIN CONCENTRATION (G/DL) BY AUTOMATED 32.4 g/dL Normal 32.0-35.0 [facility] Comment on above: Performed By: #### L [id number] ####[facility] ([facility])[address] [place] [address] Hematocrit (Bld) [Volume fraction] 31.8 % Low 36.0-55.0 [facility] Comment on above: Performed By: #### L [id number] ####[facility] ([facility])[address] [place] [address] Hemoglobin (Bld) [Mass/Vol] 10.3 g/dL Low 12.0-17.0 [facility] Comment on above: Performed By: #### L [id number] ####[facility] ([facility])[address] [place] [address] MCH (RBC) [Entitic mass] 26.8 pg Low 27.0-33.0 [facility] Comment on above: Performed By: #### L [id number] ####[facility] ([facility])[address] [place] [address] MCV (RBC) [Entitic vol] 82.6 fL Normal 82.0-98.0 [facility] Comment on above: Performed By: #### L [id number] ####[facility] ([facility])[address] [place] [address] PLATELETS (10*3/UL) IN BLOOD AUTOMATED COUNT 291 10*3/uL Normal 150-400 [facility] Comment on above: Performed By: #### L [id number] ####[facility] ([facility])[address] [place] [address] RBC (Bld) [#/Vol] 3.85 10*6/uL Normal 3.80-5.70 [facility] Comment on above: Performed By: #### L [id number] ####[facility] ([facility])[address] [place] [address] WBC (Bld) [#/Vol] 9.29 10*3/uL Normal 4.00-10.60 [facility] Comment on above: Performed By: #### L [id number] ####[facility] ([facility])[address] [place] [address] MAGNESIUMon 06-02-2023 Magnesium [Mass/Vol] 2.2 mg/dL Normal 1.9-2.7 [facility] Comment on above: Performed By: #### L [id number] ####[facility] ([facility])[address] [place] [address] POCT GLUCOSE METER UNSOLICIT ED RESULTSon 06-02-2023 Glucose [Mass/Vol] 185 mg/dL High 70-105 [facility] Comment on above: Order Comment: Waive d Testing in the ED is performed under the ED CLIA certificate #[id number]. Result Comment: [email or web address] Performed By: #### L [id number] ####[facility] ([facility])[address] [place] [address] Glucose [Mass/Vol] 122 mg/dL High 70-105 [facility] Comment on above: Order Comment: Waive d Testing in the ED is performed under the ED CLIA certificate #[id number]. Result Comment: [email or web address] Performed By: #### L [id number] ####[facility] ([facility])[address] [place] [address] Glucose [Mass/Vol] 188 mg/dL High 70-105 [facility] Comment on above: Order Comment: Waive d Testing in the ED is performed under the ED CLIA certificate #[id number]. Result Comment: [email or web address] Performed By: #### L [id number] ####[facility] ([facility])[address] [place] [address] Glucose [Mass/Vol] 169 mg/dL High 70-105 [facility] Comment on above: Order Comment: Waive d Testing in the ED is performed under the ED CLIA certificate #[id number]. Result Comment: reanna [email or web address] Performed By: #### L [id number] ####[facility] ([facility])[address] [place] [address] 30on 06-01-2023 30 Normal [facility] 30 Normal [facility] BASIC METABOLIC PANELon 05-06 Anion gap [Moles/Vol] 12 mmol/L Normal 7-20 [facility] Comment on above: Performed By: #### L [id number] ####[facility] ([facility])[address] [place] [address] Calcium [Mass/Vol] 8.4 mg/dL Low 8.6-10.3 [facility] Comment on above: Performed By: #### L [id number] ####[facility] ([facility])[address] [place] [address] Chloride [Moles/Vol] 89 mmol/L Low 98-107 [facility] Comment on above: Performed By: #### L [id number] ####[facility] ([facility])[address] [place] [address] CO2 [Moles/Vol] 33 mmol/L High 21-31 [facility] Comment on above: Performed By: #### L [id number] ####[facility] ([facility])[address] [place] [address] Creatinine [Mass/Vol] 1.31 mg/dL High 0.60-1.30 [facility] Comment on above: Performed By: #### L [id number] ####[facility] ([facility])[address] [place] [address] GLOMERULAR FILTRATION RATE ML/MIN/1.73 SQ M.PREDICTED 48.1 mL/min/1.73m*2 Low >60.0 [facility] Comment on above: Result Comment: The [facility]???s estimated glomerular filtration rate (eGFR) will no longer include consideration of race in its calculation. The National Kidney Foundation???s eGFR Task Force developed new recommendations for the estimation of the glomerular filtration rate in the [place] They recommend immediate implementation of the new equation refit without the race variable in all laboratories because the calculation does not include race. In addition to not including race in the calculation and reporting, it included diversity in its development, and has acceptable performance characteristics and potential consequences that do not disproportionately affect any one group of individuals. Performed By: #### L [id number] ####[facility] ([facility])[address] [place] [address] Glucose [Mass/Vol] 141 mg/dL High 70-100 [facility] Comment on above: Performed By: #### L [id number] ####[facility] ([facility])[address] [place] [address] Potassium [Moles/Vol] 3.3 mmol/L Low 3.5-5.1 [facility] Comment on above: Performed By: #### L [id number] ####[facility] ([facility])[address] [place] [address] Sodium [Moles/Vol] 131 mmol/L Low 136-145 [facility] Comment on above: Performed By: #### L [id number] ####[facility] ([facility])[address] [place] [address] Urea nitrogen [Mass/Vol] 36 mg/dL High 7-25 [facility] Comment on above: Performed By: #### L [id number] ####[facility] ([facility])[address] [place] [address] UREA NITROGEN/CREATININE (MASS RATIO) IN SER/PLAS 27.5 Normal [facility] Comment on above: Performed By: #### L [id number] ####[facility] ([facility])[address] [place] [address] Anion gap [Moles/Vol] 9 mmol/L Normal 7-20 [facility] Comment on above: Performed By: #### L [id number] ####[facility] ([facility])[address] [place] [address] Calcium [Mass/Vol] 8.4 mg/dL Low 8.6-10.3 [facility] Comment on above: Performed By: #### L [id number] ####[facility] ([facility])[address] [place] [address] Chloride [Moles/Vol] 87 mmol/L Low 98-107 [facility] Comment on above: Performed By: #### L [id number] ####[facility] ([facility])[address] [place] [address] CO2 [Moles/Vol] 37 mmol/L High 21-31 [facility] Comment on above: Performed By: #### L [id number] ####[facility] ([facility])[address] [place] [address] Creatinine [Mass/Vol] 1.57 mg/dL High 0.60-1.30 [facility] Comment on above: Performed By: #### L [id number] ####[facility] ([facility])[address] [place] [address] GLOMERULAR FILTRATION RATE ML/MIN/1.73 SQ M.PREDICTED 38.7 mL/min/1.73m*2 Low >60.0 [facility] Comment on above: Result Comment: The [facility]???s estimated glomerular filtration rate (eGFR) will no longer include consideration of race in its calculation. The National Kidney Foundation???s eGFR Task Force developed new recommendations for the estimation of the glomerular filtration rate in the [place] They recommend immediate implementation of the new equation refit without the race variable in all laboratories because the calculation does not include race. In addition to not including race in the calculation and reporting, it included diversity in its development, and has acceptable performance characteristics and potential consequences that do not disproportionately affect any one group of individuals. Performed By: #### L [id number] ####[facility] ([facility])[address] [place] [address] Glucose [Mass/Vol] 159 mg/dL High 70-100 [facility] Comment on above: Performed By: #### L [id number] ####[facility] ([facility])[address] [place] [address] Potassium [Moles/Vol] 3.2 mmol/L Low 3.5-5.1 [facility] Comment on above: Performed By: #### L [id number] ####[facility] ([facility])[address] [place] [address] Sodium [Moles/Vol] 130 mmol/L Low 136-145 [facility] Comment on above: Performed By: #### L [id number] ####[facility] ([facility])[address] [place] [address] Urea nitrogen [Mass/Vol] 39 mg/dL High 7-25 [facility] Comment on above: Performed By: #### L [id number] ####[facility] ([facility])[address] [place] [address] UREA NITROGEN/CREATININE (MASS RATIO) IN SER/PLAS 24.8 Normal [facility] Comment on above: Performed By: #### L [id number] ####[facility] ([facility])[address] [place] [address] CBCon 06-01-2023 Erythrocyte distribution width (RBC) [Ratio] 14.1 % Normal 11.5-15.0 [facility] Comment on above: Performed By: #### L [id number] ####[facility] ([facility])[address] [place] [address] ERYTHROCYTE MEAN CORPUSCULAR HEMOGLOBIN CONCENTRATION (G/DL) BY AUTOMATED 33.7 g/dL Normal 32.0-35.0 [facility] Comment on above: Performed By: #### L [id number] ####[facility] ([facility])[address] [place] [address] Hematocrit (Bld) [Volume fraction] 27.9 % Low 36.0-55.0 [facility] Comment on above: Performed By: #### L [id number] ####[facility] ([facility])[address] [place] [address] Hemoglobin (Bld) [Mass/Vol] 9.4 g/dL Low 12.0-17.0 [facility] Comment on above: Performed By: #### L [id number] ####[facility] ([facility])[address] [place] [address] MCH (RBC) [Entitic mass] 27.6 pg Normal 27.0-33.0 [facility] Comment on above: Performed By: #### L [id number] ####[facility] ([facility])[address] [place] [address] MCV (RBC) [Entitic vol] 81.8 fL Low 82.0-98.0 [facility] Comment on above: Performed By: #### L [id number] ####[facility] ([facility])[address] [place] [address] PLATELETS (10*3/UL) IN BLOOD AUTOMATED COUNT 238 10*3/uL Normal 150-400 [facility] Comment on above: Performed By: #### L [id number] ####[facility] ([facility])[address] [place] [address] RBC (Bld) [#/Vol] 3.41 10*6/uL Low 3.80-5.70 [facility] Comment on above: Performed By: #### L [id number] ####[facility] ([facility])[address] [place] [address] WBC (Bld) [#/Vol] 9.51 10*3/uL Normal 4.00-10.60 [facility] Comment on above: Performed By: #### L [id number] ####[facility] ([facility])[address] [place] [address] CONSULTon 06-01-2023 CONSULT Normal [facility] MAGNESIUMon 06-01-2023 Magnesium [Mass/Vol] 2.2 mg/dL Normal 1.9-2.7 [facility] Comment on above: Performed By: #### L [id number] ####[facility] ([facility])[address] [place] [address] Magnesium [Mass/Vol] 2.1 mg/dL Normal 1.9-2.7 [facility] Comment on above: Performed By: #### L [id number] ####[facility] ([facility])[address] [place] [address] Magnesium [Mass/Vol] 2.2 mg/dL Normal 1.9-2.7 [facility] Comment on above: Performed By: #### L [id number] ####[facility] ([facility])[address] [place] [address] Magnesium [Mass/Vol] 2.2 mg/dL Normal 1.9-2.7 [facility] Comment on above: Performed By: #### L [id number] ####[facility] ([facility])[address] [place] [address] PHOSPHORUSon 06-01-2023 Magnesium [Mass/Vol] 4.0 mg/dL Normal 2.5-5.0 [facility] Comment on above: Performed By: #### L [id number] ####[facility] ([facility])[address] [place] [address] POCT GLUCOSE METER UNSOLICIT ED RESULTSon 06-01-2023 Glucose [Mass/Vol] 134 mg/dL High 70-105 [facility] Comment on above: Order Comment: Waive d Testing in the ED is performed under the ED CLIA certificate #[id number]. Result Comment: [email or web address] Performed By: #### L [id number] ####[facility] ([facility])[address] [place] [address] Glucose [Mass/Vol] 131 mg/dL High 70-105 [facility] Comment on above: Order Comment: Waive d Testing in the ED is performed under the ED CLIA certificate #[id number]. Result Comment: [email or web address] Performed By: #### L [id number] ####[facility] ([facility])[address] [place] [address] Glucose [Mass/Vol] 137 mg/dL High 70-105 [facility] Comment on above: Order Comment: Waive d Testing in the ED is performed under the ED CLIA certificate #[id number]. Result Comment: [email or web address] Performed By: #### L [id number] ####[facility] ([facility])[address] [place] [address] Glucose [Mass/Vol] 154 mg/dL High 70-105 [facility] Comment on above: Order Comment: Waive d Testing in the ED is performed under the ED CLIA certificate #[id number]. Result Comment: [email or web address] Performed By: #### L [id number] ####[facility] ([facility])[address] [place] [address] Glucose [Mass/Vol] 164 mg/dL High 70-105 [facility] Comment on above: Order Comment: Waive d Testing in the ED is performed under the ED CLIA certificate #[id number]. Result Comment: [email or web address] Performed By: #### L [id number] ####[facility] ([facility])[address] [place] [address] POTASSIUMon 06-01-2023 Potassium [Moles/Vol] 3.4 mmol/L Low 3.5-5.1 [facility] Comment on above: Performed By: #### L [id number] ####[facility] ([facility])[address] [place] [address] Potassium [Moles/Vol] 3.4 mmol/L Low 3.5-5.1 [facility] Comment on above: Performed By: #### L [id number] ####[facility] ([facility])[address] [place] [address] 30on 05-31-2023 30 Normal [facility] 30 Normal [facility] ANESon 05-31-2023 ANES Normal [facility] BASIC METABOLIC PANELon 08-2 Anion gap [Moles/Vol] 11 mmol/L Normal 7- [facility] Comment on above: Performed By: #### L [id number] ####[facility] ([facility])[address] [place] [address] Calcium [Mass/Vol] 8.4 mg/dL Low 8.6-10.3 [facility] Comment on above: Performed By: #### L [id number] ####[facility] ([facility])[address] [place] [address] Chloride [Moles/Vol] 89 mmol/L Low 98-107 [facility] Comment on above: Performed By: #### L [id number] ####[facility] ([facility])[address] [place] [address] CO2 [Moles/Vol] 33 mmol/L High 21-31 [facility] Comment on above: Performed By: #### L [id number] ####[facility] ([facility])[address] [place] [address] Creatinine [Mass/Vol] 1.56 mg/dL High 0.60-1.30 [facility] Comment on above: Performed By: #### L [id number] ####[facility] ([facility])[address] [place] [address] GLOMERULAR FILTRATION RATE ML/MIN/1.73 SQ M.PREDICTED 39.0 mL/min/1.73m*2 Low >60.0 [facility] Comment on above: Result Comment: [facility]???s estimated glomerular filtration rate (eGFR) will no longer include consideration of race in its calculation. The National Kidney Foundation???s eGFR Task Force developed new recommendations for the estimation of the glomerular filtration rate in the [place] They recommend immediate implementation of the new equation refit without the race variable in all laboratories because the calculation does not include race. In addition to not including race in the calculation and reporting, it included diversity in its development, and has acceptable performance characteristics and potential consequences that do not disproportionately affect any one group of individuals. Performed By: #### L [id number] ####[facility] ([facility])[address] [place] [address] Glucose [Mass/Vol] 132 mg/dL High 70-100 [facility] Comment on above: Performed By: #### L [id number] ####[facility] ([facility])[address] [place] [address] Potassium [Moles/Vol] 3.4 mmol/L Low 3.5-5.1 [facility] Comment on above: Performed By: #### L [id number] ####[facility] ([facility])[address] [place] [address] Sodium [Moles/Vol] 130 mmol/L Low 136-145 [facility] Comment on above: Performed By: #### L [id number] ####[facility] ([facility])[address] [place] [address] Urea nitrogen [Mass/Vol] 34 mg/dL High 7-25 [facility] Comment on above: Performed By: #### L [id number] ####[facility] ([facility])[address] [place] [address] UREA NITROGEN/CREATININE (MASS RATIO) IN SER/PLAS 21.8 Normal [facility] Comment on above: Performed By: #### L [id number] ####[facility] ([facility])[address] [place] [address] CBCon 05-31-2023 Erythrocyte distribution width (RBC) [Ratio] 14.1 % Normal 11.5-15.0 [facility] Comment on above: Performed By: #### L [id number] ####[facility] ([facility])[address] [place] [address] ERYTHROCYTE MEAN CORPUSCULAR HEMOGLOBIN CONCENTRATION (G/DL) BY AUTOMATED 32.9 g/dL Normal 32.0-35.0 [facility] Comment on above: Performed By: #### L [id number] ####[facility] ([facility])[address] [place] [address] Hematocrit (Bld) [Volume fraction] 27.7 % Low 36.0-55.0 [facility] Comment on above: Performed By: #### L [id number] ####[facility] ([facility])[address] [place] [address] Hemoglobin (Bld) [Mass/Vol] 9.1 g/dL Low 12.0-17.0 [facility] Comment on above: Performed By: #### L [id number] ####[facility] ([facility])[address] [place] [address] MCH (RBC) [Entitic mass] 27.0 pg Normal 27.0-33.0 [facility] Comment on above: Performed By: #### L [id number] ####[facility] ([facility])[address] [place] [address] MCV (RBC) [Entitic vol] 82.2 fL Normal 82.0-98.0 [facility] Comment on above: Performed By: #### L [id number] ####[facility] ([facility])[address] [place] [address] PLATELETS (10*3/UL) IN BLOOD AUTOMATED COUNT 175 10*3/uL Normal 150-400 [facility] Comment on above: Performed By: #### L [id number] ####[facility] ([facility])[address] [place] [address] RBC (Bld) [#/Vol] 3.37 10*6/uL Low 3.80-5.70 [facility] Comment on above: Performed By: #### L [id number] ####[facility] ([facility])[address] [place] [address] WBC (Bld) [#/Vol] 9.59 10*3/uL Normal 4.00-10.60 [facility] Comment on above: Performed By: #### L [id number] ####[facility] ([facility])[address] [place] [address] CO-OXIMETRYon 05-31-2023 CARBOXYHEMOGLOBIN/HE MOGLOBIN TOTAL % IN BLOOD 0.8 % Normal [facility] Comment on above: Performed By: #### L [id number] ####[facility] [id number] [place] [address] [facility] Hemoglobin (Bld) [Mass/Vol] 9.1 g/dL Normal [facility] Comment on above: Performed By: #### L [id number] ####[facility] [id number] [place] [address] [facility] METHEMOGLOBIN/100 IN BLOOD 0.7 % Normal 0.0-1.5 [facility] Comment on above: Performed By: #### L [id number] ####[facility] [id number] [place] [address] [facility] Oxygen saturation in Blood 48.9 % Normal [facility] Comment on above: Performed By: #### L [id number] ####[facility] [id number] [place] [address] [facility] OXYGENATED HEMOGLOBIN IN BLOOD 48.2 % Normal [facility] Comment on above: Performed By: #### L [id number] ####[facility] [id number] [place] [address] [facility] CONSULTon 05-31-2023 CONSULT Normal [facility] HPon 05-31-2023 HP Normal [facility] MAGNESIUMon 05-31-2023 Magnesium [Mass/Vol] 2.1 mg/dL Normal 1.9-2.7 [facility] Comment on above: Performed By: #### L [id number] ####[facility] ([facility])[address] [place] [address] PHOSPHORUSon 05-31-2023 Magnesium [Mass/Vol] 3.4 mg/dL Normal 2.5-5.0 [facility] Comment on above: Performed By: #### L [id number] ####[facility] ([facility])[address] [place] [address] POCT GLUCOSE METER UNSOLICIT ED RESULTSon 05-31-2023 Glucose [Mass/Vol] 197 mg/dL High 70-105 [facility] Comment on above: Order Comment: Waive d Testing in the ED is performed under the ED CLIA certificate #[id number]. Result Comment: [email or web address] Performed By: #### L [id number] ####[facility] ([facility])[address] [place] [address] Glucose [Mass/Vol] 123 mg/dL High 70-105 [facility] Comment on above: Order Comment: Waive d Testing in the ED is performed under the ED CLIA certificate #[id number]. Result Comment: [email or web address] Performed By: #### L [id number] ####[facility] ([facility])[address] [place] [address] Glucose [Mass/Vol] 119 mg/dL High 70-105 [facility] Comment on above: Order Comment: Waive d Testing in the ED is performed under the ED CLIA certificate #[id number]. Result Comment: [email or web address] Performed By: #### L [id number] ####[facility] ([facility])[address] [place] [address] Glucose [Mass/Vol] 132 mg/dL High 70-105 [facility] Comment on above: Order Comment: Waive d Testing in the ED is performed under the ED CLIA certificate #[id number]. Result Comment: [email or web address] Performed By: #### L [id number] ####[facility] ([facility])[address] [place] [address] 30on 05-30-2023 30 The patient is Moderately Unstable - Medium risk of patient condition declining or worsening The patient's goals for the shift include pain control The clinical goals for the shift include pain control and stable vitals Normal [facility] 30 Normal [facility] BASIC METABOLIC PANELon 08- Anion gap [Moles/Vol] 14 mmol/L Normal 7-20 [facility] Comment on above: Performed By: #### L [id number] ####[facility] ([facility])[address] [place] [address] Calcium [Mass/Vol] 8.2 mg/dL Low 8.6-10.3 [facility] Comment on above: Performed By: #### L [id number] ####[facility] ([facility])[address] [place] [address] Chloride [Moles/Vol] 93 mmol/L Low 98-107 [facility] Comment on above: Performed By: #### L [id number] ####[facility] ([facility])[address] [place] [address] CO2 [Moles/Vol] 26 mmol/L Normal 21-31 [facility] Comment on above: Performed By: #### L [id number] ####[facility] ([facility])[address] [place] [address] Creatinine [Mass/Vol] 1.10 mg/dL Normal 0.60-1.30 [facility] Comment on above: Performed By: #### L [id number] ####[facility] ([facility])[address] [place] [address] GLOMERULAR FILTRATION RATE ML/MIN/1.73 SQ M.PREDICTED 59.3 mL/min/1.73m*2 Low >60.0 [facility] Comment on above: Result Comment: [facility]???s estimated glomerular filtration rate (eGFR) will no longer include consideration of race in its calculation. The National Kidney Foundation???s eGFR Task Force developed new recommendations for the estimation of the glomerular filtration rate in the [place] They recommend immediate implementation of the new equation refit without the race variable in all laboratories because the calculation does not include race. In addition to not including race in the calculation and reporting, it included diversity in its development, and has acceptable performance characteristics and potential consequences that do not disproportionately affect any one group of individuals. Performed By: #### L [id number] ####[facility] ([facility])[address] [place] [address] Glucose [Mass/Vol] 187 mg/dL High 70-100 [facility] Comment on above: Performed By: #### L [id number] ####[facility] ([facility])[address] [place] [address] Potassium [Moles/Vol] 3.5 mmol/L Normal 3.5-5.1 [facility] Comment on above: Performed By: #### L [id number] ####[facility] ([facility])[address] [place] [address] Sodium [Moles/Vol] 129 mmol/L Low 136-145 [facility] Comment on above: Performed By: #### L [id number] ####[facility] ([facility])[address] [place] [address] Urea nitrogen [Mass/Vol] 20 mg/dL Normal 7-25 [facility] Comment on above: Performed By: #### L [id number] ####[facility] ([facility])[address] [place] [address] UREA NITROGEN/CREATININE (MASS RATIO) IN SER/PLAS 18.2 Normal [facility] Comment on above: Performed By: #### L [id number] ####[facility] ([facility])[address] [place] [address] CBCon 05-30-2023 Erythrocyte distribution width (RBC) [Ratio] 14.4 % Normal 11.5-15.0 [facility] Comment on above: Performed By: #### L [id number] ####[facility] ([facility])[address] [place], [place] [address] ERYTHROCYTE MEAN CORPUSCULAR HEMOGLOBIN CONCENTRATION (G/DL) BY AUTOMATED 33.1 g/dL Normal 32.0-35.0 [facility] Comment on above: Performed By: #### L [id number] ####[facility] ([facility])[address] [place] [address] Hematocrit (Bld) [Volume fraction] 29.9 % Low 36.0-55.0 [facility] Comment on above: Performed By: #### L [id number] ####[facility] ([facility])[address] [place], [place] [address] Hemoglobin (Bld) [Mass/Vol] 9.9 g/dL Low 12.0-17.0 [facility] Comment on above: Performed By: #### L [id number] ####[facility] ([facility])[address] [place] [address] MCH (RBC) [Entitic mass] 27.4 pg Normal 27.0-33.0 [facility] Comment on above: Performed By: #### L [id number] ####[facility] ([facility])[address] [place] [address] MCV (RBC) [Entitic vol] 82.8 fL Normal 82.0-98.0 [facility] Comment on above: Performed By: #### L [id number] ####[facility] ([facility])[address] [place] [address] PLATELETS (10*3/UL) IN BLOOD AUTOMATED COUNT 126 10*3/uL Low 150-400 [facility] Comment on above: Performed By: #### L [id number] ####[facility] ([facility])[address] [place] [address] RBC (Bld) [#/Vol] 3.61 10*6/uL Low 3.80-5.70 [facility] Comment on above: Performed By: #### L [id number] ####[facility] ([facility])[address] [place] [address] WBC (Bld) [#/Vol] 10.66 10*3/uL High 4.00-10.60 [facility] Comment on above: Performed By: #### L [id number] ####[facility] ([facility])[address] [place] [address] MAGNESIUMon 05-30-2023 Magnesium [Mass/Vol] 1.9 mg/dL Normal 1.9-2.7 [facility] Comment on above: Performed By: #### L [id number] ####[facility] ([facility])[address] [place] [address] Magnesium [Mass/Vol] 2.0 mg/dL Normal 1.9-2.7 [facility] Comment on above: Performed By: #### L [id number] ####[facility] ([facility])[address] [place] [address] PHOSPHORUSon 05-30-2023 Magnesium [Mass/Vol] 2.6 mg/dL Normal 2.5-5.0 [facility] Comment on above: Performed By: #### L [id number] ####[facility] ([facility])[address] [place] [address] POCT GLUCOSE METER UNSOLICIT ED RESULTSon 05-30-2023 Glucose [Mass/Vol] 154 mg/dL High 70-105 [facility] Comment on above: Order Comment: Waive d Testing in the ED is performed under the ED CLIA certificate #[id number]. Result Comment: [email or web address] Performed By: #### L [id number] ####[facility] ([facility])[address] [place] [address] Glucose [Mass/Vol] 175 mg/dL High 70-105 [facility] Comment on above: Order Comment: Waive d Testing in the ED is performed under the ED CLIA certificate #[id number]. Result Comment: [email or web address] Performed By: #### L [id number] ####[facility] ([facility])[address] [place] [address] Glucose [Mass/Vol] 207 mg/dL High 70-105 [facility] Comment on above: Order Comment: Waive d Testing in the ED is performed under the ED CLIA certificate #[id number]. Result Comment: [email or web address] Performed By: #### L [id number] ####[facility] ([facility])[address] [place] [address] Glucose [Mass/Vol] 172 mg/dL High 70-105 [facility] Comment on above: Order Comment: Waive d Testing in the ED is performed under the ED CLIA certificate #[id number]. Result Comment: [email or web address] Performed By: #### L [id number] ####[facility] ([facility])[address] [place] [address] POTASSIUMon 05-30-2023 Potassium [Moles/Vol] 3.4 mmol/L Low 3.5-5.1 [facility] Comment on above: Performed By: #### L [id number] ####[facility] ([facility])[address] [place] [address] 30on 05-29-2023 30 Normal [facility] 30 Normal [facility] BASIC METABOLIC PANELon 05-06 Anion gap [Moles/Vol] 12 mmol/L Normal 7-20 [facility] Comment on above: Performed By: #### L [id number] ####[facility] ([facility])[address] [place] [address] Calcium [Mass/Vol] 8.5 mg/dL Low 8.6-10.3 [facility] Comment on above: Performed By: #### L [id number] ####[facility] ([facility])[address] [place] [address] Chloride [Moles/Vol] 94 mmol/L Low 98-107 [facility] Comment on above: Performed By: #### L [id number] ####[facility] ([facility])[address] [place] [address] CO2 [Moles/Vol] 26 mmol/L Normal 21-31 [facility] Comment on above: Performed By: #### L [id number] ####[facility] ([facility])[address] [place] [address] Creatinine [Mass/Vol] 1.13 mg/dL Normal 0.60-1.30 [facility] Comment on above: Performed By: #### L [id number] ####[facility] ([facility])[address] [place] [address] GLOMERULAR FILTRATION RATE ML/MIN/1.73 SQ M.PREDICTED 57.5 mL/min/1.73m*2 Low >60.0 [facility] Comment on above: Result Comment: [facility]???s estimated glomerular filtration rate (eGFR) will no longer include consideration of race in its calculation. The National Kidney Foundation???s eGFR Task Force developed new recommendations for the estimation of the glomerular filtration rate in the [place] They recommend immediate implementation of the new equation refit without the race variable in all laboratories because the calculation does not include race. In addition to not including race in the calculation and reporting, it included diversity in its development, and has acceptable performance characteristics and potential consequences that do not disproportionately affect any one group of individuals. Performed By: #### L [id number] ####[facility] ([facility])[address] [place] [address] Glucose [Mass/Vol] 196 mg/dL High 70-100 [facility] Comment on above: Performed By: #### L [id number] ####[facility] ([facility])[address] [place] [address] Potassium [Moles/Vol] 3.9 mmol/L Normal 3.5-5.1 [facility] Comment on above: Performed By: #### L [id number] ####[facility] ([facility])[address] [place] [address] Sodium [Moles/Vol] 128 mmol/L Low 136-145 [facility] Comment on above: Performed By: #### L [id number] ####[facility] ([facility])[address] [place] [address] Urea nitrogen [Mass/Vol] 21 mg/dL Normal 7-25 [facility] Comment on above: Performed By: #### L [id number] ####[facility] ([facility])[address] [place] [address] UREA NITROGEN/CREATININE (MASS RATIO) IN SER/PLAS 18.6 Normal [facility] Comment on above: Performed By: #### L [id number] ####[facility] ([facility])[address] [place] [address] Anion gap [Moles/Vol] 10 mmol/L Normal 7-20 [facility] Comment on above: Performed By: #### L [id number] ####[facility] ([facility])[address] [place] [address] Calcium [Mass/Vol] 8.5 mg/dL Low 8.6-10.3 [facility] Comment on above: Performed By: #### L [id number] ####[facility] ([facility])[address] [place] [address] Chloride [Moles/Vol] 96 mmol/L Low 98-107 [facility] Comment on above: Performed By: #### L [id number] ####[facility] ([facility])[address] [place] [address] CO2 [Moles/Vol] 28 mmol/L Normal 21-31 [facility] Comment on above: Performed By: #### L [id number] ####[facility] ([facility])[address] [place] [address] Creatinine [Mass/Vol] 1.22 mg/dL Normal 0.60-1.30 [facility] Comment on above: Performed By: #### L [id number] ####[facility] ([facility])[address] [place] [address] GLOMERULAR FILTRATION RATE ML/MIN/1.73 SQ M.PREDICTED 52.4 mL/min/1.73m*2 Low >60.0 [facility] Comment on above: Result Comment: [facility]???s estimated glomerular filtration rate (eGFR) will no longer include consideration of race in its calculation. The National Kidney Foundation???s eGFR Task Force developed new recommendations for the estimation of the glomerular filtration rate in the [place] They recommend immediate implementation of the new equation refit without the race variable in all laboratories because the calculation does not include race. In addition to not including race in the calculation and reporting, it included diversity in its development, and has acceptable performance characteristics and potential consequences that do not disproportionately affect any one group of individuals. Performed By: #### L [id number] ####[facility] ([facility])[address] [place] [address] Glucose [Mass/Vol] 204 mg/dL High 70-100 [facility] Comment on above: Performed By: #### L [id number] ####[facility] ([facility])[address] [place] [address] Potassium [Moles/Vol] 4.1 mmol/L Normal 3.5-5.1 [facility] Comment on above: Performed By: #### L [id number] ####[facility] ([facility])[address] [place] [address] Sodium [Moles/Vol] 130 mmol/L Low 136-145 [facility] Comment on above: Performed By: #### L [id number] ####[facility] ([facility])[address] [place] [address] Urea nitrogen [Mass/Vol] 21 mg/dL Normal 7-25 [facility] Comment on above: Performed By: #### L [id number] ####[facility] ([facility])[address] [place] [address] UREA NITROGEN/CREATININE (MASS RATIO) IN SER/PLAS 17.2 Normal [facility] Comment on above: Performed By: #### L [id number] ####[facility] ([facility])[address] [place] [address] CBCon 05-29-2023 Erythrocyte distribution width (RBC) [Ratio] 14.6 % Normal 11.5-15.0 [facility] Comment on above: Performed By: #### L [id number] ####[facility] ([facility])[address] [place] [address] ERYTHROCYTE MEAN CORPUSCULAR HEMOGLOBIN CONCENTRATION (G/DL) BY AUTOMATED 33.3 g/dL Normal 32.0-35.0 [facility] Comment on above: Performed By: #### L [id number] ####[facility] ([facility])[address] [place] [address] Hematocrit (Bld) [Volume fraction] 32.1 % Low 36.0-55.0 [facility] Comment on above: Performed By: #### L [id number] ####[facility] ([facility])[address] [place] [address] Hemoglobin (Bld) [Mass/Vol] 10.7 g/dL Low 12.0-17.0 [facility] Comment on above: Performed By: #### L [id number] ####[facility] ([facility])[address] [place] [address] MCH (RBC) [Entitic mass] 27.8 pg Normal 27.0-33.0 [facility] Comment on above: Performed By: #### L [id number] ####[facility] ([facility])[address] [place] [address] MCV (RBC) [Entitic vol] 83.4 fL Normal 82.0-98.0 [facility] Comment on above: Performed By: #### L [id number] ####[facility] ([facility])[address] [place] [address] PLATELETS (10*3/UL) IN BLOOD AUTOMATED COUNT 135 10*3/uL Low 150-400 [facility] Comment on above: Performed By: #### L [id number] ####[facility] ([facility])[address] [place] [address] RBC (Bld) [#/Vol] 3.85 10*6/uL Normal 3.80-5.70 [facility] Comment on above: Performed By: #### L [id number] ####[facility] ([facility])[address] [place] [address] WBC (Bld) [#/Vol] 15.57 10*3/uL High 4.00-10.60 [facility] Comment on above: Performed By: #### L [id number] ####[facility] ([facility])[address] [place] [address] CONSULTon 05-29-2023 CONSULT Normal [facility] MAGNESIUMon 05-29-2023 Magnesium [Mass/Vol] 1.9 mg/dL Normal 1.9-2.7 [facility] Comment on above: Performed By: #### L [id number] ####[facility] ([facility])[address] [place] [address] Magnesium [Mass/Vol] 1.9 mg/dL Normal 1.9-2.7 [facility] Comment on above: Performed By: #### L [id number] ####[facility] ([facility])[address] [place] [address] PHOSPHORUSon 05-29-2023 Magnesium [Mass/Vol] 3.0 mg/dL Normal 2.5-5.0 [facility] Comment on above: Performed By: #### L [id number] ####[facility] ([facility])[address] [place] [address] POCT GLUCOSE METER UNSOLICIT ED RESULTSon 05-29-2023 Glucose [Mass/Vol] 202 mg/dL High 70-105 [facility] Comment on above: Order Comment: Waive d Testing in the ED is performed under the ED CLIA certificate #[id number]. Result Comment: [email or web address] Performed By: #### L [id number] ####[facility] ([facility])[address] [place] [address] Glucose [Mass/Vol] 185 mg/dL High 70-105 [facility] Comment on above: Order Comment: Waive d Testing in the ED is performed under the ED CLIA certificate #[id number]. Result Comment: [email or web address] Performed By: #### L [id number] ####[facility] ([facility])[address] [place] [address] Glucose [Mass/Vol] 171 mg/dL High 70-105 [facility] Comment on above: Order Comment: Waive d Testing in the ED is performed under the ED CLIA certificate #[id number]. Result Comment: [email or web address] Performed By: #### L [id number] ####[facility] ([facility])[address] [place] [address] Glucose [Mass/Vol] 181 mg/dL High 70-105 [facility] Comment on above: Order Comment: Waive d Testing in the ED is performed under the ED CLIA certificate #[id number]. Result Comment: [email or web address] Performed By: #### L [id number] ####[facility] ([facility])[address] [place] [address] 30on 05-28-2023 30 Normal [facility] APTTon 05-28-2023 ACTIVATED PARTIAL THROMBOPLASTIN TIME IN PPP BY COAGULATION ASSAY 28.3 Seconds Normal 25.0-35.0 [facility] Comment on above: Result Comment: Clin ical significance of the APTT is questionable in the presence of heparin. Performed By: #### L [id number] ####[facility] ([facility])[address] [place] [address] ARTERIAL BLOOD GAS WITH IONI ZED CALCIUMon 05-28-2023 Base excess Calc (Bld) [Moles/Vol] 0.7 mmol/L Normal -2.0-3.0 [facility] Comment on above: Performed By: #### L [id number] ####[facility] [id number] [place] [address] [facility] CALCIUM IONIZED (MMOL/L) IN BLOOD 1.06 mmol/L Low 1.15-1.33 [facility] Comment on above: Performed By: #### L [id number] ####[facility] [id number] [place] [address] [place] CO2 (Bld) [Partial pressure] 40 mm[Hg] Normal 35-48 [facility] Comment on above: Performed By: #### L [id number] ####[facility] [id number] [place] [address] [place] HCO3 (Bld) [Moles/Vol] 25.4 mmol/L Normal 21.0-28.0 [facility] Comment on above: Performed By: #### L [id number] ####[facility] [id number] [place] [address] [place] LPM 15 Normal [facility] Comment on above: Performed By: #### L [id number] ####[facility] [id number] [place] [address] [place] Oxygen (Bld) [Partial pressure] 61 mm[Hg] Low 83-100 [facility] Comment on above: Performed By: #### L [id number] ####[facility] [id number] [place] [address] [facility] OXYGEN SATURATION (%) IN ARTERIAL BLOOD 93.4 % Low 94.0-98.0 [facility] Comment on above: Performed By: #### L [id number] ####[facility] [id number] [place] [address] [facility] pH (Bld) 7.41 [pH] Normal 7.35-7.45 [facility] Comment on above: Performed By: #### L [id number] ####[facility] [id number] [place] [address] [facility] SOURCE OF OXYGEN SALTER Normal [facility] Comment on above: Performed By: #### L [id number] ####[facility] [id number] [place] [address] [facility] Base excess Calc (Bld) [Moles/Vol] 1.5 mmol/L Normal -2.0-3.0 [facility] Comment on above: Order Comment: CPAP +10 Performed By: #### L [id number] ####[facility] [id number] [place] [address] [facility] CALCIUM IONIZED (MMOL/L) IN BLOOD 1.13 mmol/L Low 1.15-1.33 [facility] Comment on above: Order Comment: CPAP +10 Performed By: #### L [id number] ####[facility] [id number] [place] [address] [facility] CO2 (Bld) [Partial pressure] 43 mm[Hg] Normal 35-48 [facility] Comment on above: Order Comment: CPAP +10 Performed By: #### L [id number] ####[facility] [id number] [place] [address] [place] FIO2 50 % Normal [facility] Comment on above: Order Comment: CPAP +10 Performed By: #### L [id number] ####[facility] [id number] [place] [address] [facility] HCO3 (Bld) [Moles/Vol] 26.6 mmol/L Normal 21.0-28.0 [facility] Comment on above: Order Comment: CPAP +10 Performed By: #### L [id number] ####[facility] [id number] [place] [address] [facility] Oxygen (Bld) [Partial pressure] 81 mm[Hg] Low 83-100 [facility] Comment on above: Order Comment: CPAP +10 Performed By: #### L [id number] ####[facility] [id number] [place] [address] [facility] OXYGEN SATURATION (%) IN ARTERIAL BLOOD 97.8 % Normal 94.0-98.0 [facility] Comment on above: Order Comment: CPAP +10 Performed By: #### L [id number] ####[facility] [id number] [place] [address] [facility] pH (Bld) 7.40 [pH] Normal 7.35-7.45 [facility] Comment on above: Order Comment: CPAP +10 Performed By: #### L [id number] ####[facility] [id number] [place] [address] [facility] SOURCE OF OXYGEN CPAP Normal [facility] Comment on above: Order Comment: CPAP +10 Performed By: #### L [id number] ####[facility] [id number] [place] [address] [facility] Base excess Calc (Bld) [Moles/Vol] 0.5 mmol/L Normal -2.0-3.0 [facility] Comment on above: Performed By: #### L [id number] ####[facility] [id number] [place] [address] [facility] CALCIUM IONIZED (MMOL/L) IN BLOOD 1.11 mmol/L Low 1.15-1.33 [facility] Comment on above: Performed By: #### L [id number] ####[facility] [id number] [place] [address] [facility] CO2 (Bld) [Partial pressure] 44 mm[Hg] Normal 35-48 [facility] Comment on above: Performed By: #### L [id number] ####[facility] [id number] [place] [address] [facility] HCO3 (Bld) [Moles/Vol] 26.0 mmol/L Normal 21.0-28.0 [facility] Comment on above: Performed By: #### L [id number] ####[facility] [id number] [place] [address] [facility] LPM 6 Normal [facility] Comment on above: Performed By: #### L [id number] ####[facility] [id number] [place] [address] [facility] Oxygen (Bld) [Partial pressure] 62 mm[Hg] Low 83-100 [facility] Comment on above: Performed By: #### L [id number] ####[facility] [id number] [place] [address] [facility] OXYGEN SATURATION (%) IN ARTERIAL BLOOD 92.6 % Low 94.0-98.0 [facility] Comment on above: Performed By: #### L [id number] ####[facility] [id number] [place] [address] [facility] pH (Bld) 7.38 [pH] Normal 7.35-7.45 [facility] Comment on above: Performed By: #### L [id number] ####[facility] [id number] [place] [address] [facility] SOURCE OF OXYGEN Nasal cannula Normal [facility] Comment on above: Performed By: #### L [id number] ####[facility] [id number] [place] [address] [facility] BASIC METABOLIC PANELon 08-2 Anion gap [Moles/Vol] 10 mmol/L Normal 7-20 [facility] Comment on above: Performed By: #### L [id number] ####[facility] ([facility] [place] [address] Calcium [Mass/Vol] 8.6 mg/dL Normal 8.6-10.3 [facility] Comment on above: Performed By: #### L [id number] ####[facility] ([facility])[address] [place] [address] Chloride [Moles/Vol] 108 mmol/L High 98-107 [facility] Comment on above: Performed By: #### L [id number] ####[facility] ([facility])[address] [place] [address] CO2 [Moles/Vol] 28 mmol/L Normal 21-31 [facility] Comment on above: Performed By: #### L [id number] ####[facility] ([facility])[address] [place] [address] Creatinine [Mass/Vol] 1.21 mg/dL Normal 0.60-1.30 [facility] Comment on above: Performed By: #### L [id number] ####[facility] ([facility])[address] [place] [address] GLOMERULAR FILTRATION RATE ML/MIN/1.73 SQ M.PREDICTED 52.9 mL/min/1.73m*2 Low >60.0 [facility] Comment on above: Result Comment: [facility]???s estimated glomerular filtration rate (eGFR) will no longer include consideration of race in its calculation. The National Kidney Foundation???s eGFR Task Force developed new recommendations for the estimation of the glomerular filtration rate in the [place] They recommend immediate implementation of the new equation refit without the race variable in all laboratories because the calculation does not include race. In addition to not including race in the calculation and reporting, it included diversity in its development, and has acceptable performance characteristics and potential consequences that do not disproportionately affect any one group of individuals. Performed By: #### L [id number] ####[facility] ([facility])[address] [place] [address] Glucose [Mass/Vol] 100 mg/dL Normal 70-100 [facility] Comment on above: Performed By: #### L [id number] ####[facility] ([facility])[address] [place] [address] Potassium [Moles/Vol] 3.7 mmol/L Normal 3.5-5.1 [facility] Comment on above: Performed By: #### L [id number] ####[facility] ([facility])[address] [place] [address] Sodium [Moles/Vol] 142 mmol/L Normal 136-145 [facility] Comment on above: Performed By: #### L [id number] ####[facility] ([facility])[address] [place] [address] Urea nitrogen [Mass/Vol] 18 mg/dL Normal 7-25 [facility] Comment on above: Performed By: #### L [id number] ####[facility] ([facility])[address] [place] [address] UREA NITROGEN/CREATININE (MASS RATIO) IN SER/PLAS 14.9 Normal [facility] Comment on above: Performed By: #### L [id number] ####[facility] ([facility])[address] [place] [address] CBCon 05-28-2023 Erythrocyte distribution width (RBC) [Ratio] 14.6 % Normal 11.5-15.0 [facility] Comment on above: Performed By: #### L [id number] ####[facility] ([facility])[address] [place] [address] ERYTHROCYTE MEAN CORPUSCULAR HEMOGLOBIN CONCENTRATION (G/DL) BY AUTOMATED 33.4 g/dL Normal 32.0-35.0 [facility] Comment on above: Performed By: #### L [id number] ####[facility] ([facility])[address] [place] [address] Hematocrit (Bld) [Volume fraction] 32.9 % Low 36.0-55.0 [facility] Comment on above: Performed By: #### L [id number] ####[facility] ([facility])[address] [place] [address] Hemoglobin (Bld) [Mass/Vol] 11.0 g/dL Low 12.0-17.0 [facility] Comment on above: Performed By: #### L [id number] ####[facility] ([facility])[address] [place] [address] MCH (RBC) [Entitic mass] 27.6 pg Normal 27.0-33.0 [facility] Comment on above: Performed By: #### L [id number] ####[facility] ([facility])[address] [place] [address] MCV (RBC) [Entitic vol] 82.5 fL Normal 82.0-98.0 [facility] Comment on above: Performed By: #### L [id number] ####[facility] ([facility])[address] [place] [address] PLATELETS (10*3/UL) IN BLOOD AUTOMATED COUNT 151 10*3/uL Normal 150-400 [facility] Comment on above: Performed By: #### L [id number] ####[facility] ([facility])[address] [place] [address] RBC (Bld) [#/Vol] 3.99 10*6/uL Normal 3.80-5.70 [facility] Comment on above: Performed By: #### L [id number] ####[facility] ([facility])[address] [place] [address] WBC (Bld) [#/Vol] 11.65 10*3/uL High 4.00-10.60 [facility] Comment on above: Performed By: #### L [id number] ####[facility] ([facility])[address] [place] [address] CO-OXIMETRYon 05-28-2023 CARBOXYHEMOGLOBIN/HE MOGLOBIN TOTAL % IN BLOOD 1.3 % Normal [facility] Comment on above: Performed By: #### L [id number] ####[facility] [id number] [place] [address] [facility] Hemoglobin (Bld) [Mass/Vol] 11.3 g/dL Normal [facility] Comment on above: Performed By: #### L [id number] ####[facility] [id number] [place] [address] [place] METHEMOGLOBIN/100 IN BLOOD 0.8 % Normal 0.0-1.5 [facility] Comment on above: Performed By: #### L [id number] ####[facility] [id number] [place] [address] [place] Oxygen saturation in Blood 60.1 % Normal [facility] Comment on above: Performed By: #### L [id number] ####[facility] [id number] [place] [address] [place] OXYGENATED HEMOGLOBIN IN BLOOD 58.8 % Normal [facility] Comment on above: Performed By: #### L [id number] ####[facility] [id number] [place] [address] [place] CONSULTon 05-28-2023 CONSULT Normal [facility] LACTIC ACID, PLASMAon 2022 LACTATE (MMOL/L) IN SER/PLAS 1.6 mmol/L Normal 0.5-2.2 [facility] Comment on above: Performed By: #### L [id number] ####[facility])[address] [facility] [place] [address] LIPID PANELon 05-28-2023 CHOL/HDL 4.3 mg/dL Normal [facility] Comment on above: Performed By: #### L [id number] ####[facility] ([facility])[address] [facility] [place] [address] Cholesterol [Mass/Vol] 111 mg/dL Low 120-200 [facility] Comment on above: Performed By: #### L [id number] ####[facility] ([facility])[address] [facility] [place] [address] Magnesium [Mass/Vol] 128 mg/dL Normal 40-149 [facility] Comment on above: Result Comment: TRIG LYCERIDE REFERENCE RANGE:20 YEARS AND OLDER CARDIOVASCULAR RISKLESS THAN 150 mg/dL LOW [id number] TO 199 mg/dL BORDERLINE [id number] mg/dL AND GREATER HIGH RISK Performed By: #### L [id number] ####[facility] ([facility])[address] [facility] [address] Magnesium [Mass/Vol] 59 mg/dL Normal 0-160 [facility] Comment on above: Performed By: #### L [id number] ####[facility] ([facility])[address] [place] [address] Magnesium [Mass/Vol] 26 mg/dL Normal 23-92 [facility] Comment on above: Performed By: #### L [id number] ####[facility] ([facility])[address] [place] [address] NON HDL CHOL. (LDL+VLDL) 85 Normal [facility] Comment on above: Performed By: #### L [id number] ####[facility] ([facility])[address] [place] [address] TOTAL VLDL-C 26 mg/dL Normal 0-40 [facility] Comment on above: Performed By: #### L [id number] ####[facility] ([facility])[address] [place] [address] MAGNESIUMon 05-28-2023 Magnesium [Mass/Vol] 1.9 mg/dL Normal 1.9-2.7 [facility] Comment on above: Performed By: #### L [id number] ####[facility] ([facility])[address] [place] [address] PHOSPHORUSon 05-28-2023 Magnesium [Mass/Vol] 3.9 mg/dL Normal 2.5-5.0 [facility] Comment on above: Performed By: #### L [id number] ####[facility] ([facility])[address] [place] [address] POCT GLUCOSE METER UNSOLICIT ED RESULTSon 05-28-2023 Glucose [Mass/Vol] 194 mg/dL High 70-105 [facility] Comment on above: Order Comment: Waive d Testing in the ED is performed under the ED CLIA certificate #[id number]. Result Comment: [email or web address] Performed By: #### L [id number] ####[facility] ([facility])[address] [place] [address] Glucose [Mass/Vol] 170 mg/dL High 70-105 [facility] Comment on above: Order Comment: Waive d Testing in the ED is performed under the ED CLIA certificate #[id number]. Result Comment: jgig and Performed By: #### L [id number] ####[facility] ([facility])[address] [place] [address] Glucose [Mass/Vol] 121 mg/dL High 70-105 [facility] Comment on above: Order Comment: Waive d Testing in the ED is performed under the ED CLIA certificate #[id number]. Result Comment: jgig and Performed By: #### L [id number] ####[facility] ([facility])[address] [place] [address] Glucose [Mass/Vol] 132 mg/dL High 70-105 [facility] Comment on above: Order Comment: Waive d Testing in the ED is performed under the ED CLIA certificate #[id number]. Result Comment: jgig and Performed By: #### L [id number] ####[facility] ([facility])[address] [place] [address] Glucose [Mass/Vol] 127 mg/dL High 70-105 [facility] Comment on above: Order Comment: Waive d Testing in the ED is performed under the ED CLIA certificate #[id number]. Result Comment: jgig and Performed By: #### L [id number] ####[facility] (BEAKER)[address] [place] [address] Glucose [Mass/Vol] 128 mg/dL High 70-105 [facility] Comment on above: Order Comment: Waive d Testing in the ED is performed under the ED CLIA certificate #[id number]. Result Comment: jgig and Performed By: #### L [id number] ####[facility] ([facility])[address] [place] [address] Glucose [Mass/Vol] 134 mg/dL High 70-105 [facility] Comment on above: Order Comment: Waive d Testing in the ED is performed under the ED CLIA certificate #[id number]. Result Comment: jgig and Performed By: #### L [id number] ####[facility] ([facility]ER)[address] [place] [address] Glucose [Mass/Vol] 114 mg/dL High 70-105 [facility] Comment on above: Order Comment: Waive d Testing in the ED is performed under the ED CLIA certificate #[id number]. Result Comment: jgig and Performed By: #### L [id number] ####[facility] ([facility]AKER)[address] [place] [address] Glucose [Mass/Vol] 110 mg/dL High 70-105 [facility] Comment on above: Order Comment: Waive d Testing in the ED is performed under the ED CLIA certificate #[id number]. Result Comment: jgig and Performed By: #### L [id number] ####[facility] (BEAKER)[address] [place] [address] Glucose [Mass/Vol] 127 mg/dL High 70-105 [facility] Comment on above: Order Comment: Waive d Testing in the ED is performed under the ED CLIA certificate #[id number]. Result Comment: ebol tz Performed By: #### L [id number] ####[facility] ([facility]ER)[address] [place] [address] Glucose [Mass/Vol] 105 mg/dL Normal 70-105 [facility] Comment on above: Order Comment: Waive d Testing in the ED is performed under the ED CLIA certificate #[id number]. Result Comment: ebol tz Performed By: #### L [id number] ####[facility] ([facility]ER)[address] [place] [address] Glucose [Mass/Vol] 90 mg/dL Normal 70-105 [facility] Comment on above: Order Comment: Waive d Testing in the ED is performed under the ED CLIA certificate #[id number]. Result Comment: ebol tz Performed By: #### L [id number] ####[facility] ([facility]ER)[address] [place] [address] Glucose [Mass/Vol] 90 mg/dL Normal 70-105 [facility] Comment on above: Order Comment: Waive d Testing in the ED is performed under the ED CLIA certificate #[id number]. Result Comment: ebol tz Performed By: #### L [id number] ####[facility] ([facility] [place] [address] Glucose [Mass/Vol] 100 mg/dL Normal 70-105 [facility] Comment on above: Order Comment: Waive d Testing in the ED is performed under the ED CLIA certificate #[id number]. Result Comment: ebol tz Performed By: #### L [id number] ####[facility] ([facility])[address] [place] [address] Glucose [Mass/Vol] 118 mg/dL High 70-105 [facility] Comment on above: Order Comment: Waive d Testing in the ED is performed under the ED CLIA certificate #[id number]. Result Comment: ebol tz Performed By: #### L [id number] ####[facility] ([facility])[address] [place] [address] Glucose [Mass/Vol] 114 mg/dL High 70-105 [facility] Comment on above: Order Comment: Waive d Testing in the ED is performed under the ED CLIA certificate #[id number]. Result Comment: ebol tz Performed By: #### L [id number] ####[facility] ([facility])[address] [place] [address] Glucose [Mass/Vol] 112 mg/dL High 70-105 [facility] Comment on above: Order Comment: Waive d Testing in the ED is performed under the ED CLIA certificate #[id number]. Result Comment: ebol tz Performed By: #### L [id number] ####[facility] ([facility])[address] [place] [address] PROTIME-INRon 05-28-2023 INR IN PPP BY COAGULATION ASSAY 1.18 High 0.90-1.10 [facility] Comment on above: Result Comment: ACCC P RECOMMENDED INR FOR WARFARIN THERAPY CONDITION INRPROPHYLAXIS OF VENOUS THROMBOSIS 2-3(HIGH-RISK SURGERY)TREATMENT OF VENOUS THROMBOSIS 2-3TREATMENT OF PULMONARY EMBOLISM 2-3PREVENTION OF SYSTEMIC EMBOLISM: 2-3 ACUTE MYOCARDIAL INFARCTION TISSUE HEART VALVES VALVULAR HEART DISEASE ATRIAL FIBRILLATION RECURRENT SYSTEMIC EMBOLISMMECHANICAL HEART VALVE 2.5-3.5 FROM: ORAL ANTICOAGULANTS. MECHANISM OF ACTION, CLINICAL EFFECTIVENESS, AND OPTIMAL THERAPEUTIC RANGE. CHEST 1995;108:231S-246S. Performed By: #### L [id number] ####[facility] (BEAKER)[address] [place] [address] PROTHROMBIN TIME (PT) IN PPP BY COAGULATION ASSAY 15.1 Seconds High 12.3-14.8 [facility] Comment on above: Performed By: #### L [id number] ####[facility] (BEAKER)[address] [place] [address] [id number] 05-27-2023 [id number] Normal [facility] ANESon 05-27-2023 ANES Normal [facility] APTTon 05-27-2023 ACTIVATED PARTIAL THROMBOPLASTIN TIME IN PPP BY COAGULATION ASSAY 43.8 Seconds High 25.0-35.0 [facility] Comment on above: Result Comment: Clin ical significance of the APTT is questionable in the presence of heparin. Performed By: #### L [id number] ####[facility] (BEAKER)[address] [place] [address] ACTIVATED PARTIAL THROMBOPLASTIN TIME IN PPP BY COAGULATION ASSAY 28.0 Seconds Normal 25.0-35.0 [facility] Comment on above: Order Comment: Pre-o p diagnosis:Mitral valve disease [I05.9] Result Comment: Clin ical significance of the APTT is questionable in the presence of heparin. Performed By: #### L [id number] ####[facility] ([facility]ER)[address] [place] [address] ARTERIAL BLOOD GAS WITH CO-O XIMETRYon 05-27-2023 Base excess Calc (Bld) [Moles/Vol] -3.0000 mmol/L Low -2.0-3.0 [facility] Comment on above: Order Comment: CPAP Performed By: #### L [id number] ####[facility] [id number] [place] [address] [facility] CARBOXYHEMOGLOBIN/HE MOGLOBIN TOTAL % IN BLOOD 1.6 % Normal 0.0-3.0 [facility] Comment on above: Order Comment: CPAP Performed By: #### L [id number] ####[facility] [id number] [place] [address] [facility] CO2 (Bld) [Partial pressure] 42 mm[Hg] Normal 35-48 [facility] Comment on above: Order Comment: CPAP Performed By: #### L [id number] ####[facility] [id number] [place] [address] [facility] DEOXYGENATED HEMOGLOBIN IN BLOOD 3.5 % Normal 1-5 [facility] Comment on above: Order Comment: CPAP Performed By: #### L [id number] ####[facility] [id number] [place] [address] [facility] FIO2 40 % Normal [facility] Comment on above: Order Comment: CPAP Performed By: #### L [id number] ####[facility] [id number] [place] [address] [place] HCO3 (Bld) [Moles/Vol] 22.7 mmol/L Normal 21.0-28.0 [facility] Comment on above: Order Comment: CPAP Performed By: #### L [id number] ####[facility] [id number] [place] [address] [place] Hemoglobin (Bld) [Mass/Vol] 11.7 g/dL Normal 11.7-17.4 [facility] Comment on above: Order Comment: CPAP Performed By: #### L [id number] ####[facility] [id number] [place] [address] [place] METHEMOGLOBIN/100 IN BLOOD 0.9 % Normal 0.0-1.5 [facility] Comment on above: Order Comment: CPAP Performed By: #### L [id number] ####[facility] [id number] [place] [address] [place] Oxygen (Bld) [Partial pressure] 75 mm[Hg] Low 83-100 [facility] Comment on above: Order Comment: CPAP Performed By: #### L [id number] ####[facility] [id number] [facility] [place] [address] [facility] OXYGEN SATURATION (%) IN ARTERIAL BLOOD 96.4 % Normal 94.0-98.0 [facility] Comment on above: Order Comment: CPAP Performed By: #### L [id number] ####[facility] [id number] [place] [address] [place] OXYGENATED HEMOGLOBIN IN BLOOD 94.1 % Normal 90.0-95.0 [facility] Comment on above: Order Comment: CPAP Performed By: #### L [id number] ####[facility] [id number] [place] [facility] [place] [address] [place] PEEP 8 cmH2O Normal [facility] Comment on above: Order Comment: CPAP Performed By: #### L [id number] ####[facility] [id number] [place] [address] [place] pH (Bld) 7.34 [pH] Low 7.35-7.45 [facility] Comment on above: Order Comment: CPAP Performed By: #### L [id number] ####[facility] [id number] [place] [address] [place] PRESSURE SUPPORT 10 Normal [facility] Comment on above: Order Comment: CPAP Performed By: #### L [id number] ####[facility] [id number] [place] [address] [facility] SOURCE OF OXYGEN Vent Normal [facility] Comment on above: Order Comment: CPAP Performed By: #### L [id number] ####[facility] [id number] [place] [address] [facility] ARTERIAL BLOOD GAS WITH IONI ZED CALCIUMon 05-27-2023 Base excess Calc (Bld) [Moles/Vol] -3.8000 mmol/L Low -2.0-3.0 [facility] Comment on above: Performed By: #### L [id number] ####[facility] [id number] [place] [address] [facility] CALCIUM IONIZED (MMOL/L) IN BLOOD 1.15 mmol/L Normal 1.15-1.33 [facility] Comment on above: Performed By: #### L [id number] ####[facility] [id number] [place] [address] [facility] CO2 (Bld) [Partial pressure] 39 mm[Hg] Normal 35-48 [facility] Comment on above: Performed By: #### L [id number] ####[facility] [id number] [place] [address] [facility] HCO3 (Bld) [Moles/Vol] 21.5 mmol/L Normal 21.0-28.0 [facility] Comment on above: Performed By: #### L [id number] ####[facility] [id number] [place] [address] [place] LPM 6 Normal [facility] Comment on above: Performed By: #### L [id number] ####[facility] [id number] [place] [address] [place] Oxygen (Bld) [Partial pressure] 76 mm[Hg] Low 83-100 [facility] Comment on above: Performed By: #### L [id number] ####[facility] [id number] [place] [address] [facility] OXYGEN SATURATION (%) IN ARTERIAL BLOOD 96.1 % Normal 94.0-98.0 [facility] Comment on above: Performed By: #### L [id number] ####[facility] [id number] [place] [address] [facility] pH (Bld) 7.35 [pH] Normal 7.35-7.45 [facility] Comment on above: Performed By: #### L [id number] ####[facility] [id number] [place] [address] [place] SOURCE OF OXYGEN Nasal cannula Normal [facility] Comment on above: Performed By: #### L [id number] ####[facility] [id number] [place] [address] [facility] BASIC METABOLIC PANELon 05-06 Anion gap [Moles/Vol] 11 mmol/L Normal 7-20 [facility] Comment on above: Performed By: #### L [id number] ####[facility] ([facility]AKER)[address] [place] [address] Calcium [Mass/Vol] 8.4 mg/dL Low 8.6-10.3 [facility] Comment on above: Performed By: #### L [id number] ####[facility] ([facility]ER)[address] [place] [address] Chloride [Moles/Vol] 111 mmol/L High 98-107 [facility] Comment on above: Performed By: #### L [id number] ####[facility] ([facility]AKER)[address] [place] [address] CO2 [Moles/Vol] 23 mmol/L Normal 21-31 [facility] Comment on above: Performed By: #### L [id number] ####[facility] ([facility]AKER)[address] [place] [address] Creatinine [Mass/Vol] 1.24 mg/dL Normal 0.60-1.30 [facility] Comment on above: Performed By: #### L [id number] ####[facility] ([facility]ER)[address] [place] [address] GLOMERULAR FILTRATION RATE ML/MIN/1.73 SQ M.PREDICTED 51.4 mL/min/1.73m*2 Low >60.0 [facility] Comment on above: Result Comment: The [facility]???s estimated glomerular filtration rate (eGFR) will no longer include consideration of race in its calculation. The National Kidney Foundation???s eGFR Task Force developed new recommendations for the estimation of the glomerular filtration rate in the [place] They recommend immediate implementation of the new equation refit without the race variable in all laboratories because the calculation does not include race. In addition to not including race in the calculation and reporting, it included diversity in its development, and has acceptable performance characteristics and potential consequences that do not disproportionately affect any one group of individuals. Performed By: #### L [id number] ####[facility] ([facility])[address] [facility] [address] Glucose [Mass/Vol] 155 mg/dL High 70-100 [facility] Comment on above: Performed By: #### L [id number] ####[facility] ([facility])[address] [place] [address] Potassium [Moles/Vol] 4.5 mmol/L Normal 3.5-5.1 [facility] Comment on above: Performed By: #### L [id number] ####[facility] ([facility])[address] [place] [address] Sodium [Moles/Vol] 140 mmol/L Normal 136-145 [facility] Comment on above: Performed By: #### L [id number] ####[facility] ([facility])[address] [facility] [address] Urea nitrogen [Mass/Vol] 16 mg/dL Normal 7-25 [facility] Comment on above: Performed By: #### L [id number] ####[facility] ([facility])[address] [address] UREA NITROGEN/CREATININE (MASS RATIO) IN SER/PLAS 12.9 Normal [facility] Comment on above: Performed By: #### L [id number] ####[facility] ([facility])[address] [place] [address] Anion gap [Moles/Vol] 11 mmol/L Normal 7-20 [facility] Comment on above: Order Comment: Pre-o p diagnosis:Mitral valve disease [I05.9] Performed By: #### L [id number] ####[facility] ([facility])[address] [place] [address] Calcium [Mass/Vol] 8.2 mg/dL Low 8.6-10.3 [facility] Comment on above: Order Comment: Pre-o p diagnosis:Mitral valve disease [I05.9] Performed By: #### L [id number] ####[facility] ([facility])[address] [place] [address] Chloride [Moles/Vol] 111 mmol/L High 98-107 [facility] Comment on above: Order Comment: Pre-o p diagnosis:Mitral valve disease [I05.9] Performed By: #### L [id number] ####[facility] ([facility])[address] [place] [address] CO2 [Moles/Vol] 23 mmol/L Normal 21-31 [facility] Comment on above: Order Comment: Pre-o p diagnosis:Mitral valve disease [I05.9] Performed By: #### L [id number] ####[facility] ([facility])[address] [place] [address] Creatinine [Mass/Vol] 1.23 mg/dL Normal 0.60-1.30 [facility] Comment on above: Order Comment: Pre-o p diagnosis:Mitral valve disease [I05.9] Performed By: #### L [id number] ####[facility] ([facility])[address] [place] [address] GLOMERULAR FILTRATION RATE ML/MIN/1.73 SQ M.PREDICTED 51.9 mL/min/1.73m*2 Low >60.0 [facility] Comment on above: Order Comment: Pre-o p diagnosis:Mitral valve disease [I05.9] Result Comment: The [facility]???s estimated glomerular filtration rate (eGFR) will no longer include consideration of race in its calculation. The National Kidney Foundation???s eGFR Task Force developed new recommendations for the estimation of the glomerular filtration rate in the [place] They recommend immediate implementation of the new equation refit without the race variable in all laboratories because the calculation does not include race. In addition to not including race in the calculation and reporting, it included diversity in its development, and has acceptable performance characteristics and potential consequences that do not disproportionately affect any one group of individuals. Performed By: #### L [id number] ####[facility] ([facility])[address] [place] [address] Glucose [Mass/Vol] 172 mg/dL High 70-100 [facility] Comment on above: Order Comment: Pre-o p diagnosis:Mitral valve disease [I05.9] Performed By: #### L [id number] ####[facility] ([facility])[address] [place] [address] Potassium [Moles/Vol] 3.9 mmol/L Normal 3.5-5.1 [facility] Comment on above: Order Comment: Pre-o p diagnosis:Mitral valve disease [I05.9] Performed By: #### L [id number] ####[facility] ([facility])[address] [place] [address] Sodium [Moles/Vol] 141 mmol/L Normal 136-145 [facility] Comment on above: Order Comment: Pre-o p diagnosis:Mitral valve disease [I05.9] Performed By: #### L [id number] ####[facility] ([facility])[address] [place] [address] Urea nitrogen [Mass/Vol] 14 mg/dL Normal 7-25 [facility] Comment on above: Order Comment: Pre-o p diagnosis:Mitral valve disease [I05.9] Performed By: #### L [id number] ####[facility] ([facility])[address] [place] [address] UREA NITROGEN/CREATININE (MASS RATIO) IN SER/PLAS 11.4 Normal [facility] Comment on above: Order Comment: Pre-o p diagnosis:Mitral valve disease [I05.9] Performed By: #### L [id number] ####[facility] (BEAKER)[address] [place] [address] CALCIUM, IONIZEDon CALCIUM IONIZED (MMOL/L) IN BLOOD 1.12 mmol/L Low 1.15-1.33 [facility] Comment on above: Performed By: #### C ALCIUM, IONIZED ####[facility] [id number] [place] [address] [place] CALCIUM IONIZED (MMOL/L) IN BLOOD 1.13 mmol/L Low 1.15-1.33 [facility] Comment on above: Performed By: #### C ALCIUM, IONIZED ####[facility] [id number] [place] [address] [place] CALCIUM IONIZED (MMOL/L) IN BLOOD 1.13 mmol/L Low 1.15-1.33 [facility] Comment on above: Performed By: #### C ALCIUM, IONIZED ####[facility] [id number] [place] [address] [facility] CBCon 05-27-2023 Erythrocyte distribution width (RBC) [Ratio] 14.5 % Normal 11.5-15.0 [facility] Comment on above: Performed By: #### L [id number] ####[facility] ([facility])[address] [place] [address] ERYTHROCYTE MEAN CORPUSCULAR HEMOGLOBIN CONCENTRATION (G/DL) BY AUTOMATED 32.9 g/dL Normal 32.0-35.0 [facility] Comment on above: Performed By: #### L [id number] ####[facility] ([facility])[address] [place] [address] Hematocrit (Bld) [Volume fraction] 34.6 % Low 36.0-55.0 [facility] Comment on above: Performed By: #### L [id number] ####[facility] ([facility])[address] [place] [address] Hemoglobin (Bld) [Mass/Vol] 11.4 g/dL Low 12.0-17.0 [facility] Comment on above: Performed By: #### L [id number] ####[facility] ([facility])[address] [place] [address] MCH (RBC) [Entitic mass] 27.3 pg Normal 27.0-33.0 [facility] Comment on above: Performed By: #### L [id number] ####[facility] ([facility])[address] [place] [address] MCV (RBC) [Entitic vol] 82.8 fL Normal 82.0-98.0 [facility] Comment on above: Performed By: #### L [id number] ####[facility] ([facility])[address] [place] [address] PLATELETS (10*3/UL) IN BLOOD AUTOMATED COUNT 146 10*3/uL Low 150-400 [facility] Comment on above: Performed By: #### L [id number] ####[facility] ([facility])[address] [place] [address] RBC (Bld) [#/Vol] 4.18 10*6/uL Normal 3.80-5.70 [facility] Comment on above: Performed By: #### L [id number] ####[facility] ([facility])[address] [place] [address] WBC (Bld) [#/Vol] 11.47 10*3/uL High 4.00-10.60 [facility] Comment on above: Performed By: #### L [id number] ####[facility] ([facility])[address] [place] [address] Erythrocyte distribution width (RBC) [Ratio] 14.1 % Normal 11.5-15.0 [facility] Comment on above: Order Comment: Pre-o p diagnosis:Mitral valve disease [I05.9] Performed By: #### L [id number] ####[facility] ([facility])[address] [place] [address] ERYTHROCYTE MEAN CORPUSCULAR HEMOGLOBIN CONCENTRATION (G/DL) BY AUTOMATED 33.6 g/dL Normal 32.0-35.0 [facility] Comment on above: Order Comment: Pre-o p diagnosis:Mitral valve disease [I05.9] Performed By: #### L [id number] ####[facility] ([facility])[address] [place] [address] Hematocrit (Bld) [Volume fraction] 34.8 % Low 36.0-55.0 [facility] Comment on above: Order Comment: Pre-o p diagnosis:Mitral valve disease [I05.9] Performed By: #### L [id number] ####[facility] ([facility])[address] [place] [address] Hemoglobin (Bld) [Mass/Vol] 11.7 g/dL Low 12.0-17.0 [facility] Comment on above: Order Comment: Pre-o p diagnosis:Mitral valve disease [I05.9] Performed By: #### L [id number] ####[facility] ([facility])[address] [place] [address] MCH (RBC) [Entitic mass] 27.7 pg Normal 27.0-33.0 [facility] Comment on above: Order Comment: Pre-o p diagnosis:Mitral valve disease [I05.9] Performed By: #### L [id number] ####[facility] ([facility])[address] [place] [address] MCV (RBC) [Entitic vol] 82.5 fL Normal 82.0-98.0 [facility] Comment on above: Order Comment: Pre-o p diagnosis:Mitral valve disease [I05.9] Performed By: #### L [id number] ####[facility] ([facility])[address] [place] [address] PLATELETS (10*3/UL) IN BLOOD AUTOMATED COUNT 158 10*3/uL Normal 150-400 [facility] Comment on above: Order Comment: Pre-o p diagnosis:Mitral valve disease [I05.9] Performed By: #### L [id number] ####[facility] ([facility])[address] [place] [address] RBC (Bld) [#/Vol] 4.22 10*6/uL Normal 3.80-5.70 [facility] Comment on above: Order Comment: Pre-o p diagnosis:Mitral valve disease [I05.9] Performed By: #### L [id number] ####[facility] (BEAKER)[address] [place] [address] WBC (Bld) [#/Vol] 15.57 10*3/uL High 4.00-10.60 [facility] Comment on above: Order Comment: Pre-o p diagnosis:Mitral valve disease [I05.9] Performed By: #### L [id number] ####[facility] ([facility]ER)[address] [place] [address] CO-OXIMETRYon 05-27-2023 CARBOXYHEMOGLOBIN/HE MOGLOBIN TOTAL % IN BLOOD 1.2 % Normal [facility] Comment on above: Performed By: #### L [id number] ####[facility] [id number] [place] [address] [place] Hemoglobin (Bld) [Mass/Vol] 11.4 g/dL Normal [facility] Comment on above: Performed By: #### L [id number] ####[facility] [id number] [place] [address] [place] METHEMOGLOBIN/100 IN BLOOD 0.5 % Normal 0.0-1.5 [facility] Comment on above: Performed By: #### L [id number] ####[facility] [id number] [place] [address] [place] Oxygen saturation in Blood 58.7 % Normal [facility] Comment on above: Performed By: #### L [id number] ####[facility] [id number] [place] [address] [place] OXYGENATED HEMOGLOBIN IN BLOOD 57.7 % Normal [facility] Comment on above: Performed By: #### L [id number] ####[facility] [id number] [place] [address] [place] CARBOXYHEMOGLOBIN/HE MOGLOBIN TOTAL % IN BLOOD 1.7 % Normal [facility] Comment on above: Performed By: #### L [id number] ####[facility] [id number] [place] [address] [place] Hemoglobin (Bld) [Mass/Vol] 10.0 g/dL Normal [facility] Comment on above: Performed By: #### L [id number] ####[facility] [id number] [place] [address] [place] METHEMOGLOBIN/100 IN BLOOD 0.8 % Normal 0.0-1.5 [facility] Comment on above: Performed By: #### L [id number] ####[facility] [id number] [place] [address] [facility] Oxygen saturation in Blood 63.9 % Normal [facility] Comment on above: Performed By: #### L [id number] ####[facility] [id number] [place] [address] [facility] OXYGENATED HEMOGLOBIN IN BLOOD 62.2 % Normal [facility] Comment on above: Performed By: #### L [id number] ####[facility] [id number] [place] [address] [facility] CONSULTon 05-27-2023 CONSULT Normal [facility] FIBRINOGENon 05-27-2023 Magnesium [Mass/Vol] 171 mg/dL Normal 150-425 [facility] Comment on above: Order Comment: Pre-o p diagnosis:Mitral valve disease [I05.9] Performed By: #### L [id number] ####[facility] (BEAKER)[address] [place] [address] HISTOLOGY - TISSUE EXAMon LAB AP CASE REPORT Normal [facility] Comment on above: Order Comment: Pre-o p diagnosis:Mitral valve disease [I05.9] Result Comment: Surg ical Pathology Case: [id number] Provider: Devaughn Resendez MD Collected: 05/27/2023 1057Ordering Location: [facility] Main Operating Room Received: 05/27/2023 1445Pathologist: ANTONIO Topecimen: Heart, MITRAL VALVE LEAFLET - P2 FOR HISTOLOGY Performed By: #### L [id number] ####[facility] ([facility])[address] [facility] [address] LAB AP CLINICAL INFORMATION [facility] Comment on above: Order Comment: Pre-o p diagnosis:Mitral valve disease [I05.9] Result Comment: Post -Op [id number] - Mitral valve disease [ICD-10-CM] Performed By: #### L [id number] ####[facility] ([facility])[address] [place] [address] LAB AP GROSS DESCRIPTION A. Heart. [facility] Comment on above: Order Comment: Pre-o p diagnosis:Mitral valve disease [I05.9] Result Comment: Part A is received in formalin labeled Flynn David and mitral valve leaflet-P2 for histology. It consists of 2 carvajal-white fragments of rubbery tissue, measuring 1.6 x 0.9 x 0.4 cm and 2.5 x 1.3 x 0.7 cm. Each fragment is serially sectioned to reveal white-yellow smooth cut surface. No calcifications are identified. Professor Of Mathematics sections are submitted in 1 cassette.Dani Maharaj, Pathologists' Gastroenterology Teacher JannDatia Carrillo Pathologists' Gastroenterology Teacher Performed By: #### L [id number] ####[facility] ([facility])[address] [place] [address] LAB AP MICROSCOPIC DESCRIPTION Microscopic examination performed. [facility] Comment on above: Order Comment: Pre-o p diagnosis:Mitral valve disease [I05.9] Performed By: #### L [id number] ####[facility] ([facility])[address] [place] [address] LAB AP REPORT FINAL DIAGNOSIS NARRATIVE [facility] Comment on above: Order Comment: Pre-o p diagnosis:Mitral valve disease [I05.9] Result Comment: A. M itral valve leaflet, removal:- Valvular tissue with myxoid degeneration. Performed By: #### L [id number] ####[facility] ([facility])[address] [place] [facility] [address] HP 05-27-2023 HP Normal [facility] HP H&P reviewed. The patient was examined and there are no changes to the H&P. Patient was treated for ear infection with full course of antibiotics and was seen by ENT 05/25/2023 Dr. Fernandez and was cleared for surgery. Plan for MVR today with Dr. Resendez. Normal [facility] LACTIC ACID WITH 4 HOUR REFL EXon 05-27-2023 LACTATE (MMOL/L) IN SER/PLAS 2.2 mmol/L Normal 0.5-2.2 [facility] Comment on above: Order Comment: Pre-o p diagnosis:Mitral valve disease [I05.9] Performed By: #### L [id number] ####[facility] ([facility])[address] [place] [address] Performed By: #### L [id number] ####[facility] ([facility])[address] [place] [address] LACTATE (MMOL/L) IN SER/PLAS 3.2 mmol/L Critically high 0.5-2.2 [facility] Comment on above: Order Comment: Pre-o p diagnosis:Mitral valve disease [I05.9] Performed By: #### L [id number] ####[facility] ([facility])[address] [place] [address] MAGNESIUMon 05-27-2023 Magnesium [Mass/Vol] 2.0 mg/dL Normal 1.9-2.7 [facility] Comment on above: Performed By: #### L [id number] ####[facility] ([facility])[address] [place] [address] Magnesium [Mass/Vol] 2.1 mg/dL Normal 1.9-2.7 [facility] Comment on above: Order Comment: Pre-o p diagnosis:Mitral valve disease [I05.9] Performed By: #### L [id number] ####[facility] ([facility])[address] [place] [address] OPNOTEon 05-27-2023 OPNOTE Normal [facility] PHOSPHORUSon 05-27-2023 Magnesium [Mass/Vol] 3.0 mg/dL Normal 2.5-5.0 [facility] Comment on above: Performed By: #### L [id number] ####[facility] (BEAKER)[address] [place] [address] POCT ACTIVATED CLOTTING TIME UNSOLICITED RESULTSon 05-27-2023 POC ACTIVATED CLOTTING TIME 114 sec Normal 82-152 [facility] Comment on above: Performed By: #### L [id number] ####[facility] (BEAKER)[address] [place] [address] POC ACTIVATED CLOTTING TIME 107 sec Normal 82-152 [facility] Comment on above: Performed By: #### L [id number] ####[facility] (BEAKER)[address] [place] [address] POC ACTIVATED CLOTTING TIME 476 sec High 82-152 [facility] Comment on above: Performed By: #### L [id number] ####[facility] (BEAKER)[address] [place] [address] POC ACTIVATED CLOTTING TIME 476 sec High 82-152 [facility] Comment on above: Performed By: #### L [id number] ####[facility] (BEAKER)[address] [place] [address] POC ACTIVATED CLOTTING TIME 503 sec High 82-152 [facility] Comment on above: Performed By: #### L [id number] ####[facility] (BEAKER)[address] [place] [address] POC ACTIVATED CLOTTING TIME 462 sec High 82-152 [facility] Comment on above: Performed By: #### L [id number] ####[facility] (BEAKER)[address] [place] [address] POC ACTIVATED CLOTTING TIME 575 sec High 82-152 [facility] Comment on above: Performed By: #### L [id number] ####[facility] (BEAKER)[address] [place] [address] POC ACTIVATED CLOTTING TIME 717 sec High 82-152 [facility] Comment on above: Performed By: #### L [id number] ####[facility] ([facility])[address] [place] [address] POC ACTIVATED CLOTTING TIME 587 sec High 82-152 [facility] Comment on above: Performed By: #### L [id number] ####[facility] ([facility])[address] [place] [address] POC ACTIVATED CLOTTING TIME 427 sec High 82-152 [facility] Comment on above: Performed By: #### L [id number] ####[facility] ([facility])[address] [place] [address] POC ACTIVATED CLOTTING TIME 120 sec Normal 82-152 [facility] Comment on above: Performed By: #### L [id number] ####[facility] ([facility])[address] [place] [address] POCT GLUCOSE METER UNSOLICIT ED RESULTSon 05-27-2023 Glucose [Mass/Vol] 130 mg/dL High 70-105 [facility] Comment on above: Order Comment: Waive d Testing in the ED is performed under the ED CLIA certificate #[id number]. Result Comment: ebol tz Performed By: #### L [id number] ####[facility] ([facility])[address] [place] [address] Glucose [Mass/Vol] 134 mg/dL High 70-105 [facility] Comment on above: Order Comment: Waive d Testing in the ED is performed under the ED CLIA certificate #[id number]. Result Comment: than sen2 Performed By: #### L [id number] ####[facility] ([facility])[address] [place] [address] Glucose [Mass/Vol] 156 mg/dL High 70-105 [facility] Comment on above: Order Comment: Waive d Testing in the ED is performed under the ED CLIA certificate #[id number]. Result Comment: than sen2 Performed By: #### L [id number] ####[facility] ([facility])[address] [place] [address] Glucose [Mass/Vol] 147 mg/dL High 70-105 [facility] Comment on above: Order Comment: Waive d Testing in the ED is performed under the ED CLIA certificate #[id number]. Result Comment: than sen2 Performed By: #### L [id number] ####[facility] (BEAKER)[address] [place] [address] Glucose [Mass/Vol] 154 mg/dL High 70-105 [facility] Comment on above: Order Comment: Waive d Testing in the ED is performed under the ED CLIA certificate #[id number]. Result Comment: than sen2 Performed By: #### L [id number] ####[facility] ([facility])[address] [place] [address] Glucose [Mass/Vol] 133 mg/dL High 70-105 [facility] Comment on above: Order Comment: Waive d Testing in the ED is performed under the ED CLIA certificate #[id number]. Result Comment: lgal lo Performed By: #### L [id number] ####[facility] [place] [address] POCT PERFUSION PANEL UNSOLIC ITED RESULTSon 05-27-2023 CO2 [Moles/Vol] 25.0 mmol/L Normal 21.0-29.[address] [facility] Comment on above: Performed By: #### L [id number] ####[facility] (BEAKER)[address] [place] [address] Glucose [Mass/Vol] 169 mg/dL High 70-105 [facility] Comment on above: Performed By: #### L [id number] ####[facility] (BEAKER)[address] [place] [address] HCO3 (Bld) [Moles/Vol] 23.9 mmol/L Normal 23.0-28.0 [facility] Comment on above: Performed By: #### L [id number] ####[facility] (BEAKER)[address] [place] [address] Hematocrit (Bld) [Volume fraction] 34 % Low 38-51 [facility] Comment on above: Performed By: #### L [id number] ####[facility] (BEAKER)[address] [place] [address] Hemoglobin (Bld) [Mass/Vol] 11.6 g/dL Low 12.0-17.0 [facility] Comment on above: Performed By: #### L [id number] ####[facility] [place] [address] POCT BASE EXCESS -2.0 mmol/L Normal -2.0-3.0 [facility] Comment on above: Performed By: #### L [id number] ####[facility] [place] [address] POCT IONIZED CALCIUM 1.20 mmol/L Normal 1.12-1.32 [facility] Comment on above: Performed By: #### L [id number] ####[facility] [place] [address] POCT PCO2 44.6 mmHg Normal 41.0-51.0 [facility] Comment on above: Performed By: #### L [id number] ####[facility] [place] [address] POCT PH 7.34 Normal 7.31-7.41 [facility] Comment on above: Performed By: #### L [id number] ####[facility] (BEAKER)[address] [place] [address] POCT PO2 249 mmHg High 80-105 [facility] Comment on above: Performed By: #### L [id number] ####[facility] (BEAKER)[address] [place] [address] POCT SO2 100 % High 95-98 [facility] Comment on above: Performed By: #### L [id number] ####[facility] (BEAKER)[address] [place] [address] Potassium [Moles/Vol] 3.8 mmol/L Normal 3.5-4.9 [facility] Comment on above: Performed By: #### L [id number] ####[facility] (BEAKER)[address] [place] [address] Sodium [Moles/Vol] 143 mmol/L Normal 138.0-146.0 [facility] Comment on above: Performed By: #### L [id number] ####[facility] (BEAKER)[address] [place] [address] CO2 [Moles/Vol] 24.0 mmol/L Normal 21.0-29.[address] [facility] Comment on above: Performed By: #### L [id number] ####[facility] (BEAKER)[address] [place] [address] Glucose [Mass/Vol] 170 mg/dL High 70-105 [facility] Comment on above: Performed By: #### L [id number] ####[facility] (BEAKER)[address] [place] [address] HCO3 (Bld) [Moles/Vol] 22.8 mmol/L Low 23.0-28.0 [facility] Comment on above: Performed By: #### L [id number] ####[facility] (BEAKER)[address] [place] [address] Hematocrit (Bld) [Volume fraction] 34 % Low 38-51 [facility] Comment on above: Performed By: #### L [id number] ####[facility] (BEAKER)[address] [place] [address] Hemoglobin (Bld) [Mass/Vol] 11.6 g/dL Low 12.0-17.0 [facility] Comment on above: Performed By: #### L [id number] ####[facility] (BEAKER)[address] [place] [address] POCT BASE EXCESS -3.0 mmol/L Low -2.0-3.0 [facility] Comment on above: Performed By: #### L [id number] ####[facility] (BEAKER)[address] [place] [address] POCT IONIZED CALCIUM 1.21 mmol/L Normal 1.12-1.32 [facility] Comment on above: Performed By: #### L [id number] ####[facility] (BEAKER)[address] [place] [address] POCT PCO2 41.2 mmHg Normal 41.0-51.0 [facility] Comment on above: Performed By: #### L [id number] ####[facility] [place] [address] POCT PH 7.35 Normal 7.31-7.41 [facility] Comment on above: Performed By: #### L [id number] ####[facility] ([facility] [place] [address] POCT PO2 69 mmHg Low 80-105 [facility] Comment on above: Performed By: #### L [id number] ####[facility] [place] [address] POCT SO2 93 % Low 95-98 [facility] Comment on above: Performed By: #### L [id number] ####[facility] ([facility])[address] [place] [address] Potassium [Moles/Vol] 3.9 mmol/L Normal 3.5-4.9 [facility] Comment on above: Performed By: #### L [id number] ####[facility] ([facility] [place] [address] Sodium [Moles/Vol] 144 mmol/L Normal 138.0-146.0 [facility] Comment on above: Performed By: #### L [id number] ####[facility] (BEAKER)[address] [place] [address] CO2 [Moles/Vol] 29.0 mmol/L Normal 21.0-29.[address] [facility] Comment on above: Performed By: #### L [id number] ####[facility] (BEAKER)[address] [place] [address] Glucose [Mass/Vol] 201 mg/dL High 70-105 [facility] Comment on above: Performed By: #### L [id number] ####[facility] (BEAKER)[address] [place] [address] HCO3 (Bld) [Moles/Vol] 27.6 mmol/L Normal 23.0-28.0 [facility] Comment on above: Performed By: #### L [id number] ####[facility] (BEAKER)[address] [place] [address] Hematocrit (Bld) [Volume fraction] 31 % Low 38-51 [facility] Comment on above: Performed By: #### L [id number] ####[facility] (BEAKER)[address] [place] [address] Hemoglobin (Bld) [Mass/Vol] 10.5 g/dL Low 12.0-17.0 [facility] Comment on above: Performed By: #### L [id number] ####[facility] (BEAKER)[address] [place] [address] POCT BASE EXCESS 3.0 mmol/L Normal -2.0-3.[address] [facility] Comment on above: Performed By: #### L [id number] ####[facility] (BEAKER)[address] [place] [address] POCT IONIZED CALCIUM 1.05 mmol/L Low 1.12-1.32 [facility] Comment on above: Performed By: #### L [id number] ####[facility] (BEAKER)[address] [place] [address] POCT PCO2 43.4 mmHg Normal 41.0-51.0 [facility] Comment on above: Performed By: #### L [id number] ####[facility] (BEAKER)[address] [place] [address] POCT PH 7.41 Normal 7.31-7.41 [facility] Comment on above: Performed By: #### L [id number] ####[facility] (BEAKER)[address] [place] [address] POCT PO2 307 mmHg High 80-105 [facility] Comment on above: Performed By: #### L [id number] ####[facility] (BEAKER)[address] [place] [address] POCT SO2 100 % High 95-98 [facility] Comment on above: Performed By: #### L [id number] ####[facility] (BEAKER)[address] [place] [address] Potassium [Moles/Vol] 5.1 mmol/L High 3.5-4.9 [facility] Comment on above: Performed By: #### L [id number] ####[facility] (BEAKER)[address] [place] [address] Sodium [Moles/Vol] 140 mmol/L Normal 138.0-146.0 [facility] Comment on above: Performed By: #### L [id number] ####[facility] (BEAKER)[address] [place] [address] CO2 [Moles/Vol] 28.0 mmol/L Normal 21.0-29.[address] [facility] Comment on above: Performed By: #### L [id number] ####[facility] (BEAKER)[address] [place] [address] Glucose [Mass/Vol] 188 mg/dL High 70-105 [facility] Comment on above: Performed By: #### L [id number] ####[facility] (BEAKER)[address] [place] [address] HCO3 (Bld) [Moles/Vol] 26.5 mmol/L Normal 23.0-28.0 [facility] Comment on above: Performed By: #### L [id number] ####[facility] (BEAKER)[address] [place] [address] Hematocrit (Bld) [Volume fraction] 32 % Low 38-51 [facility] Comment on above: Performed By: #### L [id number] ####[facility] (BEAKER)[address] [place] [address] Hemoglobin (Bld) [Mass/Vol] 10.9 g/dL Low 12.0-17.0 [facility] Comment on above: Performed By: #### L [id number] ####[facility] (BEAKER)[address] [place] [address] POCT BASE EXCESS 2.0 mmol/L Normal -2.0-3.[address] [facility] Comment on above: Performed By: #### L [id number] ####[facility] [place] [address] POCT IONIZED CALCIUM 1.05 mmol/L Low 1.12-1.32 [facility] Comment on above: Performed By: #### L [id number] ####[facility] (BEAKER)[address] [place] [address] POCT PCO2 40.4 mmHg Low 41.0-51.0 [facility] Comment on above: Performed By: #### L [id number] ####[facility] (BEAKER)[address] [place] [address] POCT PH 7.43 High 7.31-7.41 [facility] Comment on above: Performed By: #### L [id number] ####[facility] (BEAKER)[address] [place] [address] POCT PO2 284 mmHg High 80-105 [facility] Comment on above: Performed By: #### L [id number] ####[facility] (BEAKER)[address] [place] [address] POCT SO2 100 % High 95-98 [facility] Comment on above: Performed By: #### L [id number] ####[facility] (BEAKER)[address] [place] [address] Potassium [Moles/Vol] 4.9 mmol/L Normal 3.5-4.9 [facility] Comment on above: Performed By: #### L [id number] ####[facility] (BEAKER)[address] [place] [address] Sodium [Moles/Vol] 139 mmol/L Normal 138.0-146.0 [facility] Comment on above: Performed By: #### L [id number] ####[facility] (BEAKER)[address] [place] [address] CO2 [Moles/Vol] 31.0 mmol/L High 21.0-29.[address] [facility] Comment on above: Performed By: #### L [id number] ####[facility] (BEAKER)[address] [place] [address] Glucose [Mass/Vol] 178 mg/dL High 70-105 [facility] Comment on above: Performed By: #### L [id number] ####[facility] (BEAKER)[address] [place] [address] HCO3 (Bld) [Moles/Vol] 29.2 mmol/L High 23.0-28.0 [facility] Comment on above: Performed By: #### L [id number] ####[facility] (BEAKER)[address] [place] [address] Hematocrit (Bld) [Volume fraction] 33 % Low 38-51 [facility] Comment on above: Performed By: #### L [id number] ####[facility] (BEAKER)[address] [place] [address] Hemoglobin (Bld) [Mass/Vol] 11.2 g/dL Low 12.0-17.0 [facility] Comment on above: Performed By: #### L [id number] ####[facility] (BEAKER)[address] [place] [address] POCT BASE EXCESS 3.0 mmol/L Normal -2.0-3.[address] [facility] Comment on above: Performed By: #### L [id number] ####[facility] (BEAKER)[address] [place] [address] POCT IONIZED CALCIUM 1.08 mmol/L Low 1.12-1.32 [facility] Comment on above: Performed By: #### L [id number] ####[facility] (BEAKER)[address] [place] [address] POCT PCO2 52.8 mmHg High 41.0-51.0 [facility] Comment on above: Performed By: #### L [id number] ####[facility] (BEAKER)[address] [place] [address] POCT PH 7.35 Normal 7.31-7.41 [facility] Comment on above: Performed By: #### L [id number] ####[facility] (BEAKER)[address] [place] [address] POCT PO2 337 mmHg High 80-105 [facility] Comment on above: Performed By: #### L [id number] ####[facility] (BEAKER)[address] [place] [address] POCT SO2 100 % High 95-98 [facility] Comment on above: Performed By: #### L [id number] ####[facility] (BEAKER)[address] [place] [address] Potassium [Moles/Vol] 4.6 mmol/L Normal 3.5-4.9 [facility] Comment on above: Performed By: #### L [id number] ####[facility] (BEAKER)[address] [place] [address] Sodium [Moles/Vol] 139 mmol/L Normal 138.0-146.0 [facility] Comment on above: Performed By: #### L [id number] ####[facility] (BEAKER)[address] [place] [address] CO2 [Moles/Vol] 31.0 mmol/L High 21.0-29.[address] [facility] Comment on above: Performed By: #### L [id number] ####[facility] (BEAKER)[address] [place] [address] Glucose [Mass/Vol] 161 mg/dL High 70-105 [facility] Comment on above: Performed By: #### L [id number] ####[facility] (BEAKER)[address] [place] [address] HCO3 (Bld) [Moles/Vol] 29.7 mmol/L High 23.0-28.0 [facility] Comment on above: Performed By: #### L [id number] ####[facility] (BEAKER)[address] [place] [address] Hematocrit (Bld) [Volume fraction] 34 % Low 38-51 [facility] Comment on above: Performed By: #### L [id number] ####[facility] (BEAKER)[address] [place] [address] Hemoglobin (Bld) [Mass/Vol] 11.6 g/dL Low 12.0-17.0 [facility] Comment on above: Performed By: #### L [id number] ####[facility] (BEAKER)[address] [place] [address] POCT BASE EXCESS 4.0 mmol/L High -2.0-3.[address] [facility] Comment on above: Performed By: #### L [id number] ####[facility] (BEAKER)[address] [place] [address] POCT IONIZED CALCIUM 1.08 mmol/L Low 1.12-1.32 [facility] Comment on above: Performed By: #### L [id number] ####[facility] (BEAKER)[address] [place] [address] POCT PCO2 49.0 mmHg Normal 41.0-51.0 [facility] Comment on above: Performed By: #### L [id number] ####[facility] (BEAKER)[address] [place] [address] POCT PH 7.39 Normal 7.31-7.41 [facility] Comment on above: Performed By: #### L [id number] ####[facility] (BEAKER)[address] [place] [address] POCT PO2 419 mmHg High 80-105 [facility] Comment on above: Performed By: #### L [id number] ####[facility] (BEAKER)[address] [place] [address] POCT SO2 100 % High 95-98 [facility] Comment on above: Performed By: #### L [id number] ####[facility] (BEAKER)[address] [place] [address] Potassium [Moles/Vol] 4.5 mmol/L Normal 3.5-4.9 [facility] Comment on above: Performed By: #### L [id number] ####[facility] (BEAKER)[address] [place] [address] Sodium [Moles/Vol] 139 mmol/L Normal 138.0-146.0 [facility] Comment on above: Performed By: #### L [id number] ####[facility] (BEAKER)[address] [place] [address] CO2 [Moles/Vol] 32.0 mmol/L High 21.0-29.[address] [facility] Comment on above: Performed By: #### L [id number] ####[facility] (BEAKER)[address] [place] [address] Glucose [Mass/Vol] 146 mg/dL High 70-105 [facility] Comment on above: Performed By: #### L [id number] ####[facility] (BEAKER)[address] [place] [address] HCO3 (Bld) [Moles/Vol] 30.2 mmol/L High 23.0-28.0 [facility] Comment on above: Performed By: #### L [id number] ####[facility] (BEAKER)[address] [place] [address] Hematocrit (Bld) [Volume fraction] 33 % Low 38-51 [facility] Comment on above: Performed By: #### L [id number] ####[facility] (BEAKER)[address] [place] [address] Hemoglobin (Bld) [Mass/Vol] 11.2 g/dL Low 12.0-17.0 [facility] Comment on above: Performed By: #### L [id number] ####[facility] (BEAKER)[address] [place] [address] POCT BASE EXCESS 5.0 mmol/L High -2.0-3.[address] [facility] Comment on above: Performed By: #### L [id number] ####[facility] [place] [address] POCT IONIZED CALCIUM 1.06 mmol/L Low 1.12-1.32 [facility] Comment on above: Performed By: #### L [id number] ####[facility] (BEAKER)[address] [place] [address] POCT PCO2 46.6 mmHg Normal 41.0-51.0 [facility] Comment on above: Performed By: #### L [id number] ####[facility] (BEAKER)[address] [place] [address] POCT PH 7.42 High 7.31-7.41 [facility] Comment on above: Performed By: #### L [id number] ####[facility] (BEAKER)[address] [place] [address] POCT PO2 340 mmHg High 80-105 [facility] Comment on above: Performed By: #### L [id number] ####[facility] (BEAKER)[address] [place] [address] POCT SO2 100 % High 95-98 [facility] Comment on above: Performed By: #### L [id number] ####[facility] (BEAKER)[address] [place] [address] Potassium [Moles/Vol] 4.0 mmol/L Normal 3.5-4.9 [facility] Comment on above: Performed By: #### L [id number] ####[facility] (BEAKER)[address] [place] [address] Sodium [Moles/Vol] 140 mmol/L Normal 138.0-146.0 [facility] Comment on above: Performed By: #### L [id number] ####[facility] (BEAKER)[address] [place] [address] CO2 [Moles/Vol] 30.0 mmol/L High 21.0-29.[address] [facility] Comment on above: Performed By: #### L [id number] ####[facility] (BEAKER)[address] [place] [address] Glucose [Mass/Vol] 137 mg/dL High 70-105 [facility] Comment on above: Performed By: #### L [id number] ####[facility] (BEAKER)[address] [place] [address] HCO3 (Bld) [Moles/Vol] 28.5 mmol/L High 23.0-28.0 [facility] Comment on above: Performed By: #### L [id number] ####[facility] (BEAKER)[address] [place] [address] Hematocrit (Bld) [Volume fraction] 35 % Low 38-51 [facility] Comment on above: Performed By: #### L [id number] ####[facility] (BEAKER)[address] [place] [address] Hemoglobin (Bld) [Mass/Vol] 11.9 g/dL Low 12.0-17.0 [facility] Comment on above: Performed By: #### L [id number] ####[facility] (BEAKER)[address] [place] [address] POCT BASE EXCESS 2.0 mmol/L Normal -2.0-3.[address] [facility] Comment on above: Performed By: #### L [id number] ####[facility] (BEAKER)[address] [place] [address] POCT IONIZED CALCIUM 1.11 mmol/L Low 1.12-1.32 [facility] Comment on above: Performed By: #### L [id number] ####[facility] (BEAKER)[address] [place] [address] POCT PCO2 52.5 mmHg High 41.0-51.0 [facility] Comment on above: Performed By: #### L [id number] ####[facility] (BEAKER)[address] [place] [address] POCT PH 7.34 Normal 7.31-7.41 [facility] Comment on above: Performed By: #### L [id number] ####[facility] (BEAKER)[address] [place] [address] POCT PO2 50 mmHg Low 80-105 [facility] Comment on above: Performed By: #### L [id number] ####[facility] (BEAKER)[address] [place] [address] POCT SO2 82 % Low 95-98 [facility] Comment on above: Performed By: #### L [id number] ####[facility] (BEAKER)[address] [place] [address] Potassium [Moles/Vol] 3.8 mmol/L Normal 3.5-4.9 [facility] Comment on above: Performed By: #### L [id number] ####[facility] (BEAKER)[address] [place] [address] Sodium [Moles/Vol] 143 mmol/L Normal 138.0-146.0 [facility] Comment on above: Performed By: #### L [id number] ####[facility] (BEAKER)[address] [place] [address] CO2 [Moles/Vol] 33.0 mmol/L High 21.0-29.[address] [facility] Comment on above: Performed By: #### L [id number] ####[facility] (BEAKER)[address] [place] [address] Glucose [Mass/Vol] 137 mg/dL High 70-105 [facility] Comment on above: Performed By: #### L [id number] ####[facility] (BEAKER)[address] [place] [address] HCO3 (Bld) [Moles/Vol] 31.4 mmol/L High 23.0-28.0 [facility] Comment on above: Performed By: #### L [id number] ####[facility] (BEAKER)[address] [place] [address] Hematocrit (Bld) [Volume fraction] 35 % Low 38-51 [facility] Comment on above: Performed By: #### L [id number] ####[facility] (BEAKER)[address] [place] [address] Hemoglobin (Bld) [Mass/Vol] 11.9 g/dL Low 12.0-17.0 [facility] Comment on above: Performed By: #### L [id number] ####[facility] (BEAKER)[address] [place] [address] POCT BASE EXCESS 5.0 mmol/L High -2.0-3.[address] [facility] Comment on above: Performed By: #### L [id number] ####[facility] (BEAKER)[address] [place] [address] POCT IONIZED CALCIUM 1.04 mmol/L Low 1.12-1.32 [facility] Comment on above: Performed By: #### L [id number] ####[facility] (BEAKER)[address] [place] [address] POCT PCO2 55.1 mmHg High 41.0-51.0 [facility] Comment on above: Performed By: #### L [id number] ####[facility] (BEAKER)[address] [place] [address] POCT PH 7.36 Normal 7.31-7.41 [facility] Comment on above: Performed By: #### L [id number] ####[facility] (BEAKER)[address] [place] [address] POCT PO2 550 mmHg High 80-105 [facility] Comment on above: Performed By: #### L [id number] ####[facility] (BEAKER)[address] [place] [address] POCT SO2 100 % High 95-98 [facility] Comment on above: Performed By: #### L [id number] ####[facility] (BEAKER)[address] [place] [address] Potassium [Moles/Vol] 4.0 mmol/L Normal 3.5-4.9 [facility] Comment on above: Performed By: #### L [id number] ####[facility] (BEAKER)[address] [place] [address] Sodium [Moles/Vol] 142 mmol/L Normal 138.0-146.0 [facility] Comment on above: Performed By: #### L [id number] ####[facility] (BEAKER)[address] [place] [address] CO2 [Moles/Vol] 27.0 mmol/L Normal 21.0-29.[address] [facility] Comment on above: Performed By: #### L [id number] ####[facility] (BEAKER)[address] [place] [address] Glucose [Mass/Vol] 137 mg/dL High 70-105 [facility] Comment on above: Performed By: #### L [id number] ####[facility] (BEAKER)[address] [place] [address] HCO3 (Bld) [Moles/Vol] 25.9 mmol/L Normal 23.0-28.0 [facility] Comment on above: Performed By: #### L [id number] ####[facility] (BEAKER)[address] [place] [address] Hematocrit (Bld) [Volume fraction] 39 % Normal 38-51 [facility] Comment on above: Performed By: #### L [id number] ####[facility] (BEAKER)[address] [place] [address] Hemoglobin (Bld) [Mass/Vol] 13.3 g/dL Normal 12.0-17.0 [facility] Comment on above: Performed By: #### L [id number] ####[facility] (BEAKER)[address] [place] [address] POCT BASE EXCESS 0.0 mmol/L Normal -2.0-3.[address] [facility] Comment on above: Performed By: #### L [id number] ####[facility] ([facility] [address] POCT IONIZED CALCIUM 1.19 mmol/L Normal 1.12-1.32 [facility] Comment on above: Performed By: #### L [id number] ####[facility] (BEAKER)[address] [place] [address] POCT PCO2 44.4 mmHg Normal 41.0-51.0 [facility] Comment on above: Performed By: #### L [id number] ####[facility] (BEAKER)[address] [place] [address] POCT PH 7.37 Normal 7.31-7.41 [facility] Comment on above: Performed By: #### L [id number] ####[facility] (BEAKER)[address] [place] [address] POCT PO2 77 mmHg Low 80-105 [facility] Comment on above: Performed By: #### L [id number] ####[facility] (BEAKER)[address] [place] [address] POCT SO2 95 % Normal 95-98 [facility] Comment on above: Performed By: #### L [id number] ####[facility] (BEAKER)[address] [place] [address] Potassium [Moles/Vol] 3.8 mmol/L Normal 3.5-4.9 [facility] Comment on above: Performed By: #### L [id number] ####[facility] (BEAKER)[address] [place] [address] Sodium [Moles/Vol] 141 mmol/L Normal 138.0-146.0 [facility] Comment on above: Performed By: #### L [id number] ####[facility] (BEAKER)[address] [place] [address] CO2 [Moles/Vol] 26.0 mmol/L Normal 21.0-29.[address] [facility] Comment on above: Performed By: #### L [id number] ####[facility] (BEAKER)[address] [place] [address] Glucose [Mass/Vol] 144 mg/dL High 70-105 [facility] Comment on above: Performed By: #### L [id number] ####[facility] (BEAKER)[address] [place] [address] HCO3 (Bld) [Moles/Vol] 24.7 mmol/L Normal 23.0-28.0 [facility] Comment on above: Performed By: #### L [id number] ####[facility] (BEAKER)[address] [place] [address] Hematocrit (Bld) [Volume fraction] 41 % Normal 38-51 [facility] Comment on above: Performed By: #### L [id number] ####[facility] (BEAKER)[address] [place] [address] Hemoglobin (Bld) [Mass/Vol] 13.9 g/dL Normal 12.0-17.0 [facility] Comment on above: Performed By: #### L [id number] ####[facility] (BEAKER)[address] [place] [address] POCT BASE EXCESS 0.0 mmol/L Normal -2.0-3.[address] [facility] Comment on above: Performed By: #### L [id number] ####[facility] (BEAKER)[address] [place] [address] POCT IONIZED CALCIUM 1.22 mmol/L Normal 1.12-1.32 [facility] Comment on above: Performed By: #### L [id number] ####[facility] ([facility] [place] [address] POCT PCO2 40.9 mmHg Low 41.0-51.0 [facility] Comment on above: Performed By: #### L [id number] ####[facility] ([facility] [place] [address] POCT PH 7.39 Normal 7.31-7.41 [facility] Comment on above: Performed By: #### L [id number] ####[facility] ([facility])[address] [place] [address] POCT PO2 85 mmHg Normal 80-105 [facility] Comment on above: Performed By: #### L [id number] ####[facility] ([facility])[address] [place] [address] POCT SO2 96 % Normal 95-98 [facility] Comment on above: Performed By: #### L [id number] ####[facility] ([facility])[address] [place] [address] Potassium [Moles/Vol] 3.8 mmol/L Normal 3.5-4.9 [facility] Comment on above: Performed By: #### L [id number] ####[facility] ([facility])[address] [place] [address] Sodium [Moles/Vol] 141 mmol/L Normal 138.0-146.0 [facility] Comment on above: Performed By: #### L [id number] ####[facility] ([facility])[address] [place] [address] POTASSIUM, WHOLE BLOODon Potassium [Moles/Vol] 4.9 mmol/L Normal 3.5-5.1 [facility] Comment on above: Performed By: #### P OTASSIUM, WHOLE BLOOD ####[facility] [id number] [place] [address] [facility] Potassium [Moles/Vol] 4.1 mmol/L Normal 3.5-5.1 [facility] Comment on above: Performed By: #### P OTASSIUM, WHOLE BLOOD ####[facility] [id number] [place] [address] [facility] Potassium [Moles/Vol] 3.8 mmol/L Normal 3.5-5.1 [facility] Comment on above: Performed By: #### P OTACHANAIUM, WHOLE BLOOD ####[facility] [id number] [place] [address] [facility] PROTIME-INRon 05-27-2023 INR IN PPP BY COAGULATION ASSAY 1.23 High 0.90-1.10 [facility] Comment on above: Result Comment: [facility] P RECOMMENDED INR FOR WARFARIN THERAPY CONDITION INRPROPHYLAXIS OF VENOUS THROMBOSIS 2-3(HIGH-RISK SURGERY)TREATMENT OF VENOUS THROMBOSIS 2-3TREATMENT OF PULMONARY EMBOLISM 2-3PREVENTION OF SYSTEMIC EMBOLISM: 2-3 ACUTE MYOCARDIAL INFARCTION TISSUE HEART VALVES VALVULAR HEART DISEASE ATRIAL FIBRILLATION RECURRENT SYSTEMIC EMBOLISMMECHANICAL HEART VALVE 2.5-3.5 FROM: ORAL ANTICOAGULANTS. MECHANISM OF ACTION, CLINICAL EFFECTIVENESS, AND OPTIMAL THERAPEUTIC RANGE. CHEST 1995;108:231S-246S. Performed By: #### L [id number] ####[facility] (BEAKER)[address] [place] [address] PROTHROMBIN TIME (PT) IN PPP BY COAGULATION ASSAY 15.6 Seconds High 12.3-14.8 [facility] Comment on above: Performed By: #### L [id number] ####[facility] ([facility])[address] [place] [address] INR IN PPP BY COAGULATION ASSAY 1.32 High 0.90-1.10 [facility] Comment on above: Order Comment: Pre-o p diagnosis:Mitral valve disease [I05.9] Result Comment: [facility] P RECOMMENDED INR FOR WARFARIN THERAPY CONDITION INRPROPHYLAXIS OF VENOUS THROMBOSIS 2-3(HIGH-RISK SURGERY)TREATMENT OF VENOUS THROMBOSIS 2-3TREATMENT OF PULMONARY EMBOLISM 2-3PREVENTION OF SYSTEMIC EMBOLISM: 2-3 ACUTE MYOCARDIAL INFARCTION TISSUE HEART VALVES VALVULAR HEART DISEASE ATRIAL FIBRILLATION RECURRENT SYSTEMIC EMBOLISMMECHANICAL HEART VALVE 2.5-3.5 FROM: ORAL ANTICOAGULANTS. MECHANISM OF ACTION, CLINICAL EFFECTIVENESS, AND OPTIMAL THERAPEUTIC RANGE. CHEST 1995;108:231S-246S. Performed By: #### L [id number] ####[facility] (Med Access)[address] [place] [address] PROTHROMBIN TIME (PT) IN PPP BY COAGULATION ASSAY 16.4 Seconds High 12.3-14.8 [facility] Comment on above: Order Comment: Pre-o p diagnosis:Mitral valve disease [I05.9] Performed By: #### L [id number] ####[facility] ([facility] Access)[address] [place] [address] SODIUM, WHOLE BLOODon 2022 SODIUM, WHOLE BLOOD 138 Normal 136-145 [facility] Comment on above: Performed By: #### S ODIUM, WHOLE BLOOD ####[facility] [id number] [place] [address] [facility] SODIUM, WHOLE BLOOD 138 Normal 136-145 [facility] Comment on above: Performed By: #### S ODIUM, WHOLE BLOOD ####[facility] [id number] [place] [address] [facility] SODIUM, WHOLE BLOOD 137 Normal 136-145 [facility] Comment on above: Performed By: #### S ODIUM, WHOLE BLOOD ####[facility] [id number] [place] [address] [facility] VENOUS BLOOD GAS WITH IONIZE D CALCIUMon 05-27-2023 Base excess Calc (BldV) [Moles/Vol] -1.8000 mmol/L Normal [facility] Comment on above: Performed By: #### L [id number] ####[facility] [id number] [place] [address] [facility] CALCIUM IONIZED (MMOL/L) IN BLOOD 1.18 mmol/L Normal 1.15-1.33 [facility] Comment on above: Performed By: #### L [id number] ####[facility] [id number] [place] [address] [facility] CO2 (BldV) [Partial pressure] 48 mm[Hg] Normal 40-50 [facility] Comment on above: Performed By: #### L [id number] ####[facility] [id number] [place] [address] [facility] HCO3 (Bld) [Moles/Vol] 24.7 mmol/L Normal [facility] Comment on above: Performed By: #### L [id number] ####[facility] [id number] [place] [address] [facility] Oxygen (BldV) [Partial pressure] 39 mm[Hg] Normal 35-45 [facility] Comment on above: Performed By: #### L [id number] ####[facility] [id number] [place] [address] [facility] OXYGEN SATURATION (%) IN VENOUS BLOOD 62.9 % Low 65.0-75.0 [facility] Comment on above: Performed By: #### L [id number] ####[facility] [id number] [place] [address] [facility] PH OF VENOUS BLOOD 7.32 Normal 7.31-7.41 [facility] Comment on above: Performed By: #### L [id number] ####[facility] [id number] [place] [address] [place] ANESon 05-26-2023 ANES Normal [facility] Letter (Out)on 05-26-2023 Letter (Out) Normal [facility] Documentationon 05-22-2023 Documentation Normal [facility] APTTon 05-14-2023 ACTIVATED PARTIAL THROMBOPLASTIN TIME IN PPP BY COAGULATION ASSAY 27.1 Seconds Normal 25.0-35.0 [facility] Comment on above: Result Comment: Clin ical significance of the APTT is questionable in the presence of heparin. Performed By: #### L [id number] ####[facility] ([facility])[address] [place] [address] BASIC METABOLIC PANELon 05-05 Anion gap [Moles/Vol] 12 mmol/L Normal 7-20 [facility] Comment on above: Performed By: #### L [id number] ####[facility] ([facility])[address] [place] [address] Calcium [Mass/Vol] 9.2 mg/dL Normal 8.6-10.3 [facility] Comment on above: Performed By: #### L [id number] ####[facility] ([facility])[address] [place] [address] Chloride [Moles/Vol] 105 mmol/L Normal 98-107 [facility] Comment on above: Performed By: #### L [id number] ####[facility] ([facility])[address] [place] [address] CO2 [Moles/Vol] 25 mmol/L Normal 21-31 [facility] Comment on above: Performed By: #### L [id number] ####[facility] ([facility])[address] [place] [address] Creatinine [Mass/Vol] 1.11 mg/dL Normal 0.60-1.30 [facility] Comment on above: Performed By: #### L [id number] ####[facility] ([facility])[address] [place] [address] GLOMERULAR FILTRATION RATE ML/MIN/1.73 SQ M.PREDICTED 58.7 mL/min/1.73m*2 Low >60.0 [facility] Comment on above: Result Comment: [facility]???s estimated glomerular filtration rate (eGFR) will no longer include consideration of race in its calculation. The [employer] Kid[employer] Foundation???s eGFR Task Force developed new recommendations for the estimation of the glomerular filtration rate in the [place] They recommend immediate implementation of the new equation refit without the race variable in all laboratories because the calculation does not include race. In addition to not including race in the calculation and reporting, it included diversity in its development, and has acceptable performance characteristics and potential consequences that do not disproportionately affect any one group of individuals. Performed By: #### L [id number] ####[facility] ([facility])[address] [place] [address] Glucose [Mass/Vol] 172 mg/dL High 70-100 [facility] Comment on above: Performed By: #### L [id number] ####[facility] ([facility])[address] [place] [address] Potassium [Moles/Vol] 4.0 mmol/L Normal 3.5-5.1 [facility] Comment on above: Performed By: #### L [id number] ####[facility] ([facility])[address] [facility] [place] [address] Sodium [Moles/Vol] 138 mmol/L Normal 136-145 [facility] Comment on above: Performed By: #### L [id number] ####[facility] ([facility])[address] [facility] [place] [address] Urea nitrogen [Mass/Vol] 16 mg/dL Normal 7-25 [facility] Comment on above: Performed By: #### L [id number] ####[facility] ([facility] [place] [address] UREA NITROGEN/CREATININE (MASS RATIO) IN SER/PLAS 14.4 Normal [facility] Comment on above: Performed By: #### L [id number] ####[facility] ([facility])[address] [place] [address] CBC WITH AUTO DIFFERENTIALon 05-14-2023 Basophils (Bld) [#/Vol] 0.04 10*3/uL Normal 0.00-0.20 [facility] Comment on above: Performed By: #### L [id number] ####[facility] ([facility])[address] [place] [address] Basophils/100 WBC (Bld) 0.7 % Normal 0.0-1.0 [facility] Comment on above: Performed By: #### L [id number] ####[facility] ([facility])[address] [place] [address] Eosinophils (Bld) [#/Vol] 0.24 10*3/uL Normal 0.00-0.50 [facility] Comment on above: Performed By: #### L [id number] ####[facility] ([facility])[address] [place] [address] Eosinophils/100 WBC (Bld) 4.0 % Normal 0.0-6.0 [facility] Comment on above: Performed By: #### L [id number] ####[facility] ([facility])[address] [place] [address] Erythrocyte distribution width (RBC) [Ratio] 14.1 % Normal 11.5-15.0 [facility] Comment on above: Performed By: #### L [id number] ####[facility] ([facility] [place] [address] ERYTHROCYTE MEAN CORPUSCULAR HEMOGLOBIN CONCENTRATION (G/DL) BY AUTOMATED 33.0 g/dL Normal 32.0-35.0 [facility] Comment on above: Performed By: #### L [id number] ####[facility] ([facility])[address] [place] [address] Hematocrit (Bld) [Volume fraction] 43.9 % Normal 36.0-55.0 [facility] Comment on above: Performed By: #### L [id number] ####[facility] ([facility])[address] [place] [address] Hemoglobin (Bld) [Mass/Vol] 14.5 g/dL Normal 12.0-17.0 [facility] Comment on above: Performed By: #### L [id number] ####[facility] ([facility])[address] [place] [address] Immature granulocytes (Bld) [#/Vol] 0.04 10*3/uL Normal 0.00-0.20 [facility] Comment on above: Performed By: #### L [id number] ####[facility] ([facility])[address] [place] [address] Immature granulocytes/100 WBC (Bld) 0.7 % Normal 0.0-1.0 [facility] Comment on above: Performed By: #### L [id number] ####[facility] ([facility])[address] [place] [address] Lymphocytes (Bld) [#/Vol] 2.24 10*3/uL Normal 1.20-4.00 [facility] Comment on above: Performed By: #### L [id number] ####[facility] ([facility])[address] [place] [address] Lymphocytes/100 WBC (Bld) 37.3 % Normal 20.0-45.0 [facility] Comment on above: Performed By: #### L [id number] ####[facility] ([facility])[address] [place] [address] MCH (RBC) [Entitic mass] 27.1 pg Normal 27.0-33.0 [facility] Comment on above: Performed By: #### L [id number] ####[facility] ([facility])[address] [place] [address] MCV (RBC) [Entitic vol] 82.1 fL Normal 82.0-98.0 [facility] Comment on above: Performed By: #### L [id number] ####[facility] ([facility])[address] [place] [address] Monocytes (Bld) [#/Vol] 0.47 10*3/uL Normal 0.10-1.00 [facility] Comment on above: Performed By: #### L [id number] ####[facility] ([facility])[address] [place] [address] Monocytes/100 WBC (Bld) 7.8 % Normal 5.0-12.0 [facility] Comment on above: Performed By: #### L [id number] ####[facility] ([facility])[address] [place] [address] Neutrophils (Bld) [#/Vol] 2.98 10*3/uL Normal 1.60-7.60 [facility] Comment on above: Performed By: #### L [id number] ####[facility] ([facility])[address] [place] [address] Neutrophils/100 WBC (Bld) 49.5 % Normal 40.0-72.0 [facility] Comment on above: Performed By: #### L [id number] ####[facility] ([facility])[address] [place] [address] NRBC (PER 100 WBCS) BY AUTOMATED COUNT 0.0 % Normal 0 [facility] Comment on above: Performed By: #### L [id number] ####[facility] ([facility])[address] [place] [address] PLATELETS (10*3/UL) IN BLOOD AUTOMATED COUNT 220 10*3/uL Normal 150-400 [facility] Comment on above: Performed By: #### L [id number] ####[facility] ([facility])[address] [place] [address] RBC (Bld) [#/Vol] 5.35 10*6/uL Normal 3.80-5.70 [facility] Comment on above: Performed By: #### L [id number] ####[facility] ([facility])[address] [place] [address] WBC (Bld) [#/Vol] 6.01 10*3/uL Normal 4.00-10.60 [facility] Comment on above: Performed By: #### L [id number] ####[facility] ([facility])[address] [place] [address] CT CHEST WO IV CONTRASTon CT CHEST WO IV CONTRAST Normal [facility] ETHANOLon 05-14-2023 ETHANOL (MG/DL) IN SER/PLAS <10 Normal [facility] Comment on above: Result Comment: No E thanol detected Performed By: #### L [id number] ####[facility] ([facility])[address] [place] [address] ETHANOL CALCULATED (%) Normal [facility] Comment on above: Performed By: #### L [id number] ####[facility] ([facility])[address] [place] [address] Follow-Upon 05-14-2023 Follow-Up Normal [facility] HEMOGLOBIN A1Con 05-14-2023 Glucose [Mass/Vol] 160 mg/dL Normal [facility] Comment on above: Performed By: #### L [id number] ####[facility] ([facility])[address] [place] [address] HbA1c (Bld) [Mass fraction] 7.2 % High 4.0-6.0 [facility] Comment on above: Performed By: #### L [id number] ####[facility] ([facility])[address] [place] [address] HPon 05-14-2023 HP Normal [facility] Labon 05-14-2023 Lab Normal [facility] PROTIME-INRon 05-14-2023 INR IN PPP BY COAGULATION ASSAY 0.91 Normal 0.90-1.10 [facility] Comment on above: Result Comment: ACCC P RECOMMENDED INR FOR WARFARIN THERAPY CONDITION INRPROPHYLAXIS OF VENOUS THROMBOSIS 2-3(HIGH-RISK SURGERY)TREATMENT OF VENOUS THROMBOSIS 2-3TREATMENT OF PULMONARY EMBOLISM 2-3PREVENTION OF SYSTEMIC EMBOLISM: 2-3 ACUTE MYOCARDIAL INFARCTION TISSUE HEART VALVES VALVULAR HEART DISEASE ATRIAL FIBRILLATION RECURRENT SYSTEMIC EMBOLISMMECHANICAL HEART VALVE 2.5-3.5 FROM: ORAL ANTICOAGULANTS. MECHANISM OF ACTION, CLINICAL EFFECTIVENESS, AND OPTIMAL THERAPEUTIC RANGE. CHEST 1995;108:[id number]. Performed By: #### L [id number] ####[facility] ([facility])[address] [place] [address] PROTHROMBIN TIME (PT) IN PPP BY COAGULATION ASSAY 12.2 Seconds Low 12.3-14.8 [facility] Comment on above: Performed By: #### L [id number] ####[facility] ([facility])[address] [place] [address] TOXICOLOGY PANEL URINEon AMPHETAMINE+METHAMPH ETAMINE SCREEN (PRESENCE) IN URINE Negative Normal Negative [facility] Comment on above: Performed By: #### L [id number] ####[facility] ([facility])[address] [place] [address] BARBITURATES PRESENCE IN URINE BY SCREEN METHOD Negative Normal Negative [facility] Comment on above: Performed By: #### L [id number] ####[facility] ([facility])[address] [place] [address] Benzodiazepines Ql (U) Negative Normal Negative [facility] Comment on above: Performed By: #### L [id number] ####[facility] ([facility])[address] [place] [facility] [address] CANNABINOID (PRESENCE) IN URINE BY SCREEN METHOD Negative Normal Negative [facility] Comment on above: Performed By: #### L [id number] ####[facility] ([facility])[address] [facility] [address] Cocaine Ql (U) Negative Normal Negative [facility] Comment on above: Performed By: #### L [id number] ####[facility] ([facility])[address] [place] [place] [address] METHADONE (PRESENCE) IN URINE BY SCREEN METHOD Negative Normal Negative [facility] Comment on above: Performed By: #### L [id number] ####[facility] ([facility])[address] [place] [facility] [address] OPIATES (PRESENCE) IN URINE BY SCREEN METHOD Negative Normal Negative [facility] Comment on above: Performed By: #### L [id number] ####[facility] ([facility])[address] [place] [facility] [place] [address] PHENCYCLIDINE PRESENCE IN URINE BY SCREEN METHOD Negative Normal Negative [facility] Comment on above: Performed By: #### L [id number] ####[facility] ([facility])[address] [place] [facility] [place] [address] Propoxyphene Screen Ql (U) Negative Normal Negative [facility] Comment on above: Performed By: #### L [id number] ####[facility] ([facility])[address] [place] [facility] [address] TRICYCLIC ANTIDEPRESSANTS (PRESENCE) IN URINE Negative Normal Negative [facility] Comment on above: Performed By: #### L [id number] ####[facility] ([facility])[address] [place] [facility] [place] [address] TYPE AND SCREENon 05-14-2023 AB SCREEN Negative Normal [facility] Comment on above: Performed By: #### L [id number] ####[facility], ABO group Nom (Bld) A Normal [facility] Comment on above: Performed By: #### L [id number] ####[facility], RH TYPE IN BLOOD Positive Normal [facility] Comment on above: Performed By: #### L [id number] ####[facility], URINALYSISon 05-14-2023 BILIRUBIN, TOTAL PRESENCE IN URINE Negative Normal Negative [facility] Comment on above: Order Comment: Micro scopics not performed on urines with negative chemical reactions unless requested on original order. Performed By: #### L [id number] ####[facility] ([facility])[address] [place] [address] Clarity (U) Clear Normal Clear [facility] Comment on above: Order Comment: Micro scopics not performed on urines with negative chemical reactions unless requested on original order. Performed By: #### L [id number] ####[facility] ([facility])[address] [place] [address] Color (U) Straw Abnormal Yellow [facility] Comment on above: Order Comment: Micro scopics not performed on urines with negative chemical reactions unless requested on original order. Performed By: #### L [id number] ####[facility] ([facility])[address] [place] [address] Glucose (U) [Mass/Vol] Negative Normal Negative [facility] Comment on above: Order Comment: Micro scopics not performed on urines with negative chemical reactions unless requested on original order. Performed By: #### L [id number] ####[facility] ([facility])[address] [place] [address] HEMOGLOBIN PRESENCE IN URINE Negative Normal Negative [facility] Comment on above: Order Comment: Micro scopics not performed on urines with negative chemical reactions unless requested on original order. Performed By: #### L [id number] ####[facility] ([facility])[address] [place] [address] Ketones Ql (U) Negative Normal Negative [facility] Comment on above: Order Comment: Micro scopics not performed on urines with negative chemical reactions unless requested on original order. Performed By: #### L [id number] ####[facility] ([facility])[address] [place] [address] LEUKOCYTE ESTERASE PRESENCE IN URINE BY TEST STRIP Negative Normal Negative [facility] Comment on above: Order Comment: Micro scopics not performed on urines with negative chemical reactions unless requested on original order. Performed By: #### L [id number] ####[facility] ([facility])[address] [place] [address] NITRITE PRESENCE IN URINE Negative Normal Negative [facility] Comment on above: Order Comment: Micro scopics not performed on urines with negative chemical reactions unless requested on original order. Performed By: #### L [id number] ####[facility] ([facility])[address] [place] [address] pH (U) 5.0 [pH] Normal 5.0-8.0 [facility] Comment on above: Order Comment: Micro scopics not performed on urines with negative chemical reactions unless requested on original order. Performed By: #### L [id number] ####[facility] ([facility])[address] [place] [address] Protein (U) [Mass/Vol] Negative Normal Negative [facility] Comment on above: Order Comment: Micro scopics not performed on urines with negative chemical reactions unless requested on original order. Performed By: #### L [id number] ####[facility] ([facility])[address] [place] [address] Specific gravity (U) [Rel density] 1.013 Low 1.015-1.020 [facility] Comment on above: Order Comment: Micro scopics not performed on urines with negative chemical reactions unless requested on original order. Performed By: #### L [id number] ####[facility] ([facility])[address] [place] [address] 36on 03-11-2023 36 Pt going to er [facility] ANESon 02-12-2023 ANES [facility] HPon 02-12-2023 [facility] NURSNOTEon 02-12-2023 NURSNOTE RN educated pt on d/ c instructions. RN encouraged pt to voice any questions or concerns. Pt verbalizes no questions or concerns at this time. Pt was wheeled off of unit with all of belongings. Normal [facility] CBC AUTO DIFFon 02-06-2023 BASO # 0.0 103/ul Normal 0.0-0.1 [facility] Comment on above: Performed By: #### C BC #### [facility] [address] [address] [address] John Bertrand Basophils/100 WBC (Bld) 0.4 % Normal 0.2-2.0 [facility] Comment on above: Performed By: #### C BC #### [facility] [address] [address] [address] John Bertrand EO # 0.2 103/ul Normal 0.0-0.7 [facility] Comment on above: Performed By: #### C BC #### [facility] [address] [address] [address] John Bertrand Eosinophils/100 WBC (Bld) 3.1 % Normal 0.9-7.0 [facility] Comment on above: Performed By: #### C BC #### [facility] [address] [address] [address] John Bertrand Erythrocyte distribution width (RBC) [Ratio] 13.9 % Normal 11.0-15.0 [facility] Comment on above: Performed By: #### C BC #### [facility] [address] [address] [address] John Bertrand Hematocrit (Bld) [Volume fraction] 43.8 % Normal 42.0-54.0 [facility] Comment on above: Performed By: #### C BC #### [facility] [address] [address] [address] John Bertrand Hemoglobin (Bld) [Mass/Vol] 14.4 g/dL Normal 14.0-18.0 [facility] Comment on above: Performed By: #### C BC #### [facility] [address] [address] [address] John Bertrand IG # 0.01 10e3/ul Normal 0.00-0.03 [facility] Comment on above: Performed By: #### C BC #### [facility] [address] [place] [address] Dr. John Bertrand IG % 0.2 % Normal 0.0-0.5 [facility] Comment on above: Performed By: #### C BC #### [facility] [address] [place] [address] Dr. John Bertrand LYMPH # 2.3 103/ul Normal 1.2-3.8 [facility] Comment on above: Performed By: #### C BC #### [facility] [address] [place] [address] Dr. John Bertrand Lymphocytes/100 WBC (Bld) 41.1 % Normal 20.5-60.0 [facility] Comment on above: Performed By: #### C BC #### [facility] [address] [place] [address] Dr. John Bertrand MANUAL DIFF REQ NO Normal [facility] Comment on above: Performed By: #### C BC #### [facility] [address] [place] [address] Dr. John Bertrand MCH (RBC) [Entitic mass] 27.6 pg Normal 25.9-34.0 [facility] Comment on above: Performed By: #### C BC #### [facility] [address] [place] [address] Dr. John Bertrand MCHC (RBC) [Mass/Vol] 32.9 g/dL Normal 29.9-35.2 [facility] Comment on above: Performed By: #### C BC #### [facility] [address] [place] [address] Dr. John Bertrand MCV (RBC) [Entitic vol] 83.9 fL Normal 80.0-94.0 [facility] Comment on above: Performed By: #### C BC #### [facility] [address] [place] [address] Dr. John Bertrand MONO # 0.5 103/ul Normal 0.3-0.8 [facility] Comment on above: Performed By: #### C BC #### [facility] [address] [place] [address] Dr. John Bertrand Monocytes/100 WBC (Bld) 9.0 % Normal 1.7-12.0 [facility] Comment on above: Performed By: #### C BC #### [facility] [address] [place] [address] Dr. John Bertrand NEUT # 2.5 103/ul Normal 1.4-6.5 [facility] Comment on above: Performed By: #### C BC #### [facility] [address] [place] [address] Dr. John Bertrand Neutrophils/100 WBC (Bld) 46.2 % Normal 43.0-75.0 [facility] Comment on above: Performed By: #### C BC #### [facility] [address] [place] [address] Dr. John Bertrand Platelet mean volume (Bld) [Entitic vol] 9.6 fL Normal 9.5-13.5 [facility] Comment on above: Performed By: #### C BC #### [facility] [address] [place] [address] Dr. John Bertrand PLT 223 103/ul Normal 150-450 [facility] Comment on above: Performed By: #### C BC #### [facility] [address] [place] [address] Dr. John Bertrand RBC 5.22 106/ul Normal 4.70-6.10 [facility] Comment on above: Performed By: #### C BC #### [facility] [address] [place] [address] Dr. John Bertrand WBC 5.5 103/ul Normal 4.0-11.0 [facility] Comment on above: Performed By: #### C BC #### [facility] [address] [place] [address] Dr. John Bertrand PROF CHEM 8 (BAS METB)on Anion gap [Moles/Vol] 9.3 mmol/L Normal [facility] Comment on above: Performed By: #### B MP #### [facility] [address] [address] [address] John Bertrand Calcium [Mass/Vol] 8.7 mg/dL Normal 8.5-10.1 [facility] Comment on above: Performed By: #### B MP #### [facility] [address] [address] [address] John Bertrand Chloride [Moles/Vol] 105 mmol/L Normal 98-107 [facility] Comment on above: Performed By: #### B MP #### [facility] [address] [address] [address] John Bertrand CO2 [Moles/Vol] 27.6 mmol/L Normal 21.0-32.0 [facility] Comment on above: Performed By: #### B MP #### [facility] [address] [address] [address] John Bertrand Creatinine [Mass/Vol] 1.28 mg/dL Normal 0.70-1.30 [facility] Comment on above: Performed By: #### B MP #### [facility] [address] [address] [address] John Bertrand EGFR-AF ALGERIAN >60 Normal >=60 [facility] Comment on above: Performed By: #### B MP #### [facility] [address] [address] [address] John Bertrand EGFR-NON AF ALGERIAN 58 mL/min/1.73m2 Critically low >=60 [facility] Comment on above: Performed By: #### B MP #### [facility] [address] [address] [address] John Bertrand Glucose [Mass/Vol] 137 mg/dL Critically high 74-106 T [facility] Comment on above: Performed By: #### B MP #### [facility] [address] [address] [address] John Bertrand Potassium [Moles/Vol] 3.9 mmol/L Normal 3.5-5.1 [facility] Comment on above: Performed By: #### B MP #### [facility] [address] [address] [address] John Bertrand Sodium [Moles/Vol] 138 mmol/L Normal 136-145 [facility] Comment on above: Performed By: #### B MP #### [facility] [address] [place] [address] Dr. John Bertrand Urea nitrogen [Mass/Vol] 16.0 mg/dL Normal 7.0-18.0 [facility] Comment on above: Performed By: #### B MP #### [facility] [address] [place] [address] Dr. John Bertrand Urea nitrogen/Creatinine [Mass ratio] 12.5 mg/mg Normal [facility] Comment on above: Performed By: #### B MP #### [facility] [address] [place] [address] Dr. John Bertrand CBC AUTO DIFFon 01-14-2023 BASO # 0.0 103/ul Normal 0.0-0.1 [facility] Comment on above: Performed By: #### C BC #### [facility] [address] [place] [address] Dr. John Bertrand Basophils/100 WBC (Bld) 0.6 % Normal 0.2-2.0 [facility] Comment on above: Performed By: #### C BC #### [facility] [address] [place] [address] Dr. John Bertrand EO # 0.1 103/ul Normal 0.0-0.7 [facility] Comment on above: Performed By: #### C BC #### [facility] [address] [place] [address] Dr. John Bertrand Eosinophils/100 WBC (Bld) 2.7 % Normal 0.9-7.0 [facility] Comment on above: Performed By: #### C BC #### [facility] [address] [place] [address] Dr. John Bertrand Erythrocyte distribution width (RBC) [Ratio] 13.9 % Normal 11.0-15.0 [facility] Comment on above: Performed By: #### C BC #### [facility] [address] [place] [address] Dr. John Bertrand Hematocrit (Bld) [Volume fraction] 44.8 % Normal 42.0-54.0 [facility] Comment on above: Performed By: #### C BC #### [facility] [address] [place] [address] Dr. John Bertrand Hemoglobin (Bld) [Mass/Vol] 14.8 g/dL Normal 14.0-18.0 [facility] Comment on above: Performed By: #### C BC #### [facility] [address] [place] [address] Dr. John Bertrand IG # 0.01 10e3/ul Normal 0.00-0.03 [facility] Comment on above: Performed By: #### C BC #### [facility] [address] [place] [address] Dr. John Bertrand IG % 0.2 % Normal 0.0-0.5 [facility] Comment on above: Performed By: #### C BC #### [facility] [address] [place] [address] Dr. John Bertrand LYMPH # 1.9 103/ul Normal 1.2-3.8 [facility] Comment on above: Performed By: #### C BC #### [facility] [address] [place] [address] Dr. John Bertrand Lymphocytes/100 WBC (Bld) 37.0 % Normal 20.5-60.0 [facility] Comment on above: Performed By: #### C BC #### [facility] [address] [place] [address] Dr. John Bertrand MANUAL DIFF REQ NO Normal [facility] Comment on above: Performed By: #### C BC #### [facility] [address] [place] [address] Dr. John Bertrand MCH (RBC) [Entitic mass] 27.2 pg Normal 25.9-34.0 [facility] Comment on above: Performed By: #### C BC #### [facility] [address] [place] [address] Dr. John Bertrand MCHC (RBC) [Mass/Vol] 33.0 g/dL Normal 29.9-35.2 [facility] Comment on above: Performed By: #### C BC #### [facility] [address] [place] [address] Dr. John Bertrand MCV (RBC) [Entitic vol] 82.4 fL Normal 80.0-94.0 [facility] Comment on above: Performed By: #### C BC #### [facility] [address] [place] [address] Dr. John Bertrand MONO # 0.5 103/ul Normal 0.3-0.8 [facility] Comment on above: Performed By: #### C BC #### [facility] [address] [place] [address] Dr. John Bertrand Monocytes/100 WBC (Bld) 8.8 % Normal 1.7-12.0 [facility] Comment on above: Performed By: #### C BC #### [facility] [address] [place] [address] Dr. John Bertrand NEUT # 2.7 103/ul Normal 1.4-6.5 [facility] Comment on above: Performed By: #### C BC #### [facility] [address] [place] [address] Dr. John Bertrand Neutrophils/100 WBC (Bld) 50.7 % Normal 43.0-75.0 [facility] Comment on above: Performed By: #### C BC #### [facility] [address] [place] [address] Dr. John Bertrand Platelet mean volume (Bld) [Entitic vol] 9.5 fL Normal 9.5-13.5 [facility] Comment on above: Performed By: #### C BC #### [facility] [address] [place] [address] Dr. John Bertrand PLT 235 103/ul Normal 150-450 [facility] Comment on above: Performed By: #### C BC #### [facility] [address] [place] [address] Dr. John Bertrand RBC 5.44 106/ul Normal 4.70-6.10 [facility] Comment on above: Performed By: #### C BC #### [facility] [address] [address] [address] John Bertrand WBC 5.3 103/ul Normal 4.0-11.0 [facility] Comment on above: Performed By: #### C BC #### [facility] [address] [address] [address] John Bertrand FREE THYROXINE INDEX T7on FTI 2.16 Normal 1.30-4.50 [facility] Comment on above: Performed By: #### T SH, CMP, T7, LIPID ####[facility] [address] [address]Dr. John Bertrand T3U 36.0 % Normal 33.0-40.0 [facility] Comment on above: Performed By: #### T SH, CMP, T7, LIPID ####[facility] [address] [address]Dr. John Bertrand T4 [Mass/Vol] 6.00 ug/dL Normal 4.50-12.10 [facility] Comment on above: Performed By: #### T SH, CMP, T7, LIPID ####[facility] [address] [address]Dr. John Bertrand GLYCOHEMOGLOBIN A1Con 2022 ADA RECOMMENDATION SEE BELOW Normal [facility] Comment on above: Result Comment: ADA RECOMMENDED LIMIT 4.0 - 6.0 ADA THERAPEUTIC TARGET < 7.0 ACTION SUGGESTED > 7.0 Performed By: #### A 1C #### [facility] [address] [address] [address] John Bertrand Glucose [Mass/Vol] 154 mg/dL Normal [facility] Comment on above: Performed By: #### A 1C #### [facility] [address] [address] [address] John Bertrand HbA1c (Bld) [Mass fraction] 7.0 % Critically high 4.5-6.2 [facility] Comment on above: Performed By: #### A 1C #### [facility] [address] [place], [place] [address] Dr. John Bertrand HPon 01-14-2023 HP Normal [facility] LIPID PROFILEon 01-14-2023 CHOL-HDL RATIO NORM SEE BELOW Normal [facility] Comment on above: Result Comment: 3.3 - 4.4 LOW RISK 4.4 - 7.1 AVERAGE RISK 7.1 - 11.0 MODERATE RISK >11.0 HIGH RISK Performed By: #### T SH, CMP, T7, LIPID ####[facility] [address] [id number] John Bertrand Cholesterol [Mass/Vol] 151 mg/dL Normal <=200 [facility] Comment on above: Performed By: #### T SH, CMP, T7, LIPID ####[facility] [address] [id number] John Bertrand Cholesterol in HDL [Mass/Vol] 36 mg/dL Critically low 40-60 [facility] Comment on above: Performed By: #### T SH, CMP, T7, LIPID ####[facility] [address] [id number] John Bertrand Cholesterol in LDL [Mass/Vol] 101.4 mg/dL Normal [facility] Comment on above: Performed By: #### T SH, CMP, T7, LIPID ####[facility] [address] [id number] John Bertrand Cholesterol.total/Ch olesterol in HDL [Mass ratio] 4.2 {ratio} Normal [facility] Comment on above: Performed By: #### T SH, CMP, T7, LIPID ####[facility] [address] [id number]. John Bertrand HDL NORMAL > or = 60 mg/dl - LO W CARDIOVASCULAR RISK <40 mg/dl - HIGH CARDIOVASCULAR RISK Normal [facility] Comment on above: Performed By: #### T SH, CMP, T7, LIPID ####[facility] [address] [id number]. John Bertrand LDL CALC NORMAL SEE BELOW Normal [facility] Comment on above: Result Comment: <100 mg/dl OPTIMAL 100 - 129 mg/dl NEAR OR ABOVE OPTIMAL 130 - 159 mg/dl BORDERLINE HIGH 160 - 189 mg/dl HIGH >190 mg/dl VERY HIGH Performed By: #### T SH, CMP, T7, LIPID ####[facility] [address] [address]Dr. John Bertrand Triglyceride [Mass/Vol] 68 mg/dL Normal <=150 [facility] Comment on above: Performed By: #### T SH, CMP, T7, LIPID ####[facility] [address] [address]Dr. John Bertrand VLDL CALC 13.6 mg/dL Normal [facility] Comment on above: Performed By: #### T SH, CMP, T7, LIPID ####[facility] [address] [address]Dr. John Bertrand PROF 14(COMP METB)on 023 Albumin [Mass/Vol] 3.8 g/dL Normal 3.4-5.0 [facility] Comment on above: Performed By: #### T SH, CMP, T7, LIPID ####[facility] [address] [address]Dr. John Bertrand Albumin/Globulin [Mass ratio] 1.1 {ratio} Normal [facility] Comment on above: Performed By: #### T SH, CMP, T7, LIPID ####[facility] [address] [address]Dr. John Bertrand ALP [Catalytic activity/Vol] 71 U/L Normal 46-116 [facility] Comment on above: Performed By: #### T SH, CMP, T7, LIPID ####[facility] [address] [address]Dr. John Bertrand ALT [Catalytic activity/Vol] 80 U/L Critically high 16-63 [facility] Comment on above: Performed By: #### T SH, CMP, T7, LIPID ####[facility] [address] [address]Dr. John Bertrand Anion gap [Moles/Vol] 11.2 mmol/L Normal [facility] Comment on above: Performed By: #### T SH, CMP, T7, LIPID ####[facility] [address] [address]Dr. John Bertrand AST [Catalytic activity/Vol] 39 U/L Critically high 15-37 [facility] Comment on above: Performed By: #### T SH, CMP, T7, LIPID ####[facility] [address] [address]Dr. John Bertrand Bilirubin [Mass/Vol] 0.4 mg/dL Normal 0.2-1.0 [facility] Comment on above: Performed By: #### T SH, CMP, T7, LIPID ####[facility] [address] [place], [place] [address]Dr. John Bertrand Calcium [Mass/Vol] 9.2 mg/dL Normal 8.5-10.1 [facility] Comment on above: Performed By: #### T SH, CMP, T7, LIPID ####[facility] [address] [place], [place] [address]Dr. John Bertrand Chloride [Moles/Vol] 107 mmol/L Normal 98-107 [facility] Comment on above: Performed By: #### T SH, CMP, T7, LIPID ####[facility] [address] [place], [place] [address]Dr. John Bertrand CO2 [Moles/Vol] 26.8 mmol/L Normal 21.0-32.0 [facility] Comment on above: Performed By: #### T SH, CMP, T7, LIPID ####[facility] [address] [place], [place] [address]Dr. John Bertrand Creatinine [Mass/Vol] 1.21 mg/dL Normal 0.70-1.30 [facility] Comment on above: Performed By: #### T SH, CMP, T7, LIPID ####[facility] [address] [place], [place] [address]Dr. John Bertrand EGFR-AF ALGERIAN >60 Normal >=60 [facility] Comment on above: Performed By: #### T SH, CMP, T7, LIPID ####[facility] [address] [id number]. John Bertrand EGFR-NON AF ALGERIAN >60 Normal >=60 [facility] Comment on above: Performed By: #### T SH, CMP, T7, LIPID ####[facility] [address] [address]Dr. John Bertrand Globulin (S) [Mass/Vol] 3.5 g/dL Normal [facility] Comment on above: Performed By: #### T SH, CMP, T7, LIPID ####[facility] [address] [address]Dr. John Bertrand Glucose [Mass/Vol] 140 mg/dL Critically high 74-106 [facility] Comment on above: Performed By: #### T SH, CMP, T7, LIPID ####[facility] [address] [address]Dr. John Bertrand Potassium [Moles/Vol] 4.0 mmol/L Normal 3.5-5.1 [facility] Comment on above: Performed By: #### T SH, CMP, T7, LIPID ####[facility] [address] [address]Dr. John Bertrand Protein [Mass/Vol] 7.3 g/dL Normal 6.4-8.2 [facility] Comment on above: Performed By: #### T SH, CMP, T7, LIPID ####[facility] [address] [address]Dr. John Bertrand Sodium [Moles/Vol] 141 mmol/L Normal 136-145 [facility] Comment on above: Performed By: #### T SH, CMP, T7, LIPID ####[facility] [address] [address]Dr. John Bertrand Urea nitrogen [Mass/Vol] 11.0 mg/dL Normal 7.0-18.0 [facility] Comment on above: Performed By: #### T SH, CMP, T7, LIPID ####[facility] [address] [address]Dr. John Bertrand Urea nitrogen/Creatinine [Mass ratio] 9.1 mg/mg Normal [facility] Comment on above: Performed By: #### T SH, CMP, T7, LIPID ####[facility] [address] [place], [place] [address]Cg. John Bertrand TSHon 01-14-2023 TSH 1.532 uIU/mL Normal 0.358-3.740 [facility] Comment on above: Performed By: #### T SH, CMP, T7, LIPID ####[facility] [address] [place], [place] [address]Sa. John Bertrand Physician Referralon 023 Physician Referral [phone] [id number]#[id number] Normal [facility] CT ABD/PELV W CONon 12-17-[address] ABD/PELV W CON EXAMINATION: CT ABD/PELV W CON HISTORY: Umbilical hernia abdominal pain COMPARISON: None. TECHNIQUE: Following intravenous administration of 100 cc of Omnipaque 300, axial soft tissue windows of the abdomen and pelvis were performed with coronal and sagittal reformats. Dose reduction techniques were achieved by using automated exposure control and/or adjustment of mA and/or kV according to patient size and/or use of iterative reconstruction technique. Findings: ABDOMEN: The visualized portions of the liver demonstrate fatty infiltration. The dome of the liver is not visualized. The gallbladder, spleen, pancreas, and adrenal glands are unremarkable. Nonobstructing bilateral renal stones. The largest is within the lower pole measuring 0.4 cm. No renal collecting system or ureteral dilatation bilaterally. There are colonic diverticula. No bowel obstruction. No bowel thickening. The appendix is nondilated. The aorta is normal caliber. No enlarged abdominal lymph nodes or free abdominal fluid. Small fat-containing umbilicus hernia. Pelvis: Unremarkable bladder. The prostate is not significantly enlarged. No enlarged pelvic lymph nodes or free pelvic fluid. Small fat-containing bilateral inguinal hernias. No aggressive sclerotic or lytic osseous lesions. Mild multilevel degenerative spondylosis. IMPRESSION: 1. Small fat-containing umbilicus and bilateral inguinal hernias. 2. Nonobstructing bilateral renal stones. 3. Diverticulosis. Electronically authenticated by: GLORIA STRANGE Date: 2022-12-16 09:20 Normal [facility] ECHOCARDIO M/2D COMPLETEon 0 12-16-2022 ECHOCARDIO M/2D COMPLETE Patient: FLYNN ARNETT. Exam Date: 12/16/2022 : 1965 Gender:M Ordering : DR LAUREN VELASQUEZ . Admission #: [id number] Family : Order #: [id number] CLICK HERE TO VIEW EXAM ECHOCARDIOGRAM REPORT PROCEDURE: CARDIO PULMONARY ECHOCARDIO M/2D COMP INDICATIONS: Cardiac murmur COMPARISON: None. DESCRIPTION: COMPLETE ECHOCARDIOGRAM Real-time transthoracic echocardiography with 2D, M-mode, spectral and color flow Doppler performed. QUALITY: Technical quality was good. LEFT VENTRICLE: Normal chamber size. Mild concentric left ventricular hypertrophy. LV EF: Normal left ventricular ejection fraction, (>55%). DIASTOLIC: Unable to assess diastolic dysfunction. ATRIAL SEPTUM: Visually appears intact. LEFT ATRIUM: Moderate dilatation. RIGHT ATRIUM: Mild dilatation. RIGHT VENTRICLE: Normal chamber size. Normal right ventricular systolic function. TRICUSPID VALVE: Normal mobility and thickness. No stenosis with trivial regurgitation. MITRAL VALVE: Posterior mitral valve leaflet prolapse. No evidence of mitral valve stenosis. There is no mitral annular calcification. Moderate to severe, eccentric mitral regurgitation. Eccentricity may underestimate the severity of the regurgitation. AORTIC VALVE: Normal trileaflet appearance. No visible sclerosis. Normal leaflet mobility. No evidence of aortic valve stenosis. No aortic regurgitation. AORTIC ROOT: Normal diameter and appearance. PULMONIC VALVE: Normal thickness and mobility. No stenosis. Trivial regurgitation. PERICARDIUM: No evidence of pericardial effusion. IVC: Collapses with inspirations. CONCLUSION: Global left ventricular systolic function is normal; visually estimated ejection fraction is 60 to 65%. No segmental wall motion abnormalities. Mild left ventricular hypertrophy. Unable to assess diastolic dysfunction. Biatrial enlargement. The right ventricle is normal in size and systolic function. Moderate to severe, eccentric mitral regurgitation. Posterior mitral valve prolapse. Recommend evaluation by transesophageal echocardiography (RHONDA) if clinically warranted Adult Echocardiography Procedure Report Left Ventricle LVEDD (3.7 - 5.6 cm): 5.45 cm LVESD (2.2 - 4.0 cm): 3.73 cm LVIVS thickness (0.6 - 1.2 cm): 1.48 cm LVPW thickness (0.5 - 1.0 cm): 1.23 cm e': 0.06 m/s E - e': 11.54 LVOT Max Gradient: 2.36 mm[Hg] Peak Velocity (LVOT): 0.77 m/s LVOT Diameter 3.04 cm Left Ventricular Ejection Fraction: 58.89 %, 58.89 % Left Atrium LA Volume Index (2D A2C): 103.86 ml, 103.86 ml Left Atrium Systolic Dimension: 4.46 cm Mitral Valve MV E to A Ratio: 1.27 Mitral Valve A-Wave Peak Velocity: 0.57 m/s Mitral Valve E-Wave Peak Velocity: 0.72 m/s Right Ventricle Aorta AO Root Diam: 4.03 cm Aortic Valve AoV Area (Peak Donal): 5.29 cm2, 5.29 cm2 Peak Velocity(Antegrade Flow): 1.05 m/s Peak Gradient(Antegrade Flow): 4.43 mm[Hg] Tricuspid Valve Peak Velocity (Regurgitant Flow): 2.99 m/s Pulmonic Valve Peak Velocity: 0.87 m/s, 0.86 m/s Peak Gradient: 3.00 mm[Hg], 2.93 mm[Hg] Right Atrium Right Atrium Systolic Pressure: 69.32 ml, 69.32 ml Dictated by: Adonis Jacob M.D. on 12/16/2022 at 12:06 Approved by: Adonis Jacob M.D. on 12/16/2022 at 12:11 Normal [facility] Covid-19 PCR (CVDTBH)on SARS-CoV-2 (COVID-19) RNA THALIA+probe Ql (Unsp spec) Not detected Normal NOT DETECTED [facility] Comment on above: Result Comment: This test is not yet approved or cleared by the [place] FDA. When there are no FDA-approved or cleared tests available, and other criteria are met, FDA can make tests available under an emergency access mechanism called an Emergency Use Authorization (EUA). The EUA for this test is supported by the [place] of Health and Human Service's (HHS's) declaration that circumstances exist to justify the emergency use of in vitro diagnostics for the detection and/or diagnosis of the virus that causes COVID-19. This EUA will remain in effect (meaning this test can be used) for the duration of the COVID-19 declaration justifying emergency of IVDs, unless it is terminated or revoked by FDA (after which the test may no longer be used). When diagnostic testing is negative, the possibility of a false negative should be considered in the context of a patient's recent exposures and the presence of clinical signs and symptoms consistent with SARS-CoV-2. Performed By: #### C VDTBH #### [facility] [address] [place] [address] Dr. John Bertrand INFLUENZA A AND B AGon 03-06 INFLUANEGH SEE BELOW Normal [facility] Comment on above: Result Comment: Nega tive for Flu A protein angiten. Infection due to Flu A cannot be ruled out. Flu A angiten in the sample may be below the detection limit of the test. Performed By: #### I NFLUAB #### [facility] [address] [place] [address] Dr. John Bertrand INFLUBNEG SEE BELOW Normal [facility] Comment on above: Result Comment: Nega tive for Flu B protein antigen. Infection due to Flu B cannot be ruled out. Flu B antigen in the sample may be below the detection limit of the test. Performed By: #### I NFLUAB #### [facility] [address] [place] [address] Dr. John Bertrand INFLUENZA A AG Negative Normal NEGATIVE SEE COMMENT [facility] Comment on above: Performed By: #### I NFLUAB #### [facility] [address] [place] [address] Dr. John Bertrand INFLUENZA B AG Negative Normal NEGATIVE SEE COMMENT [facility] Comment on above: Performed By: #### I NFLUAB #### [facility] [address] [place] [address] Dr. John Bertrand INTERNAL CONTROLS Within Normal Limits Normal Wi thin Normal Limits [facility] Comment on above: Performed By: #### I NFLUAB #### [facility] [address] [place] [address] Dr. John Bertrand SYMPTOMATIC COVID-19 ANTIGEN on 03-06-2022 EUA Statement SEE BELOW Normal [facility] Comment on above: Result Comment: This test has not been FDA cleared or approved, but has been authorized by the FDA under an Emergency Use Authorization (EUA) for use by authorized laboratories certified under CLIA that meet the requirements to perform moderate or high complexity testing. This test has been authorized only for the detection of proteins from SARS-CoV-2, not for any other viruses or pathogens. The emergency use of this test is authorized for the duration of the declaration that circumstances exist justifying the authorization of emergency use of in vitro diagnostic tests for detection and/or diagnosis of Covid-19 under section 564(b)(1) of the Act, 21 U.S.C. 360bbb-3(b)(1), unless the declaration is terminated or authorization is revoked sooner. Performed By: #### C VDAGS #### [facility] [address] [place] [address] Dr. John Bertrand SARS-CoV-2 (COVID-19) RNA THALIA+probe Ql (Unsp spec) Negative Normal NEGATIVE The [facility] Comment on above: Performed By: #### C VDAGS #### [facility] [address] [place] [address] Dr. John Bertrand Vital Signs Date Time Vital Sign Value Performing Clinician Facility 05-10-2023 09:20-0400 Body height 175.26 cm Monica Cardozamond Other Location Labs Other 05-10-2023 09:20-0400 Body mass index (BMI) [Ratio] 33.96 kg/m2 Monica Renetta Other Location Labs Other 05-10-2023 09:20-0400 Body temperature 99 [degF] Monica Cardozamond Other Location Labs Other 05-10-2023 09:20-0400 Body weight 104.33 kg Monica Cardozamond Other Location Labs Other 05-10-2023 09:20-0400 Diastolic blood pressure 102 mm[Hg] Monica Renetta Other Location Labs Other 05-10-2023 09:20-0400 Respiratory rate 18 /min Monica Jackson Other Location Labs Other 05-10-2023 09:20-0400 SaO2% (BldA) [Mass fraction] 97 % Monica Jackson Other Location Labs Other 05-10-2023 09:20-0400 Systolic blood pressure 141 mm[Hg] Monica Jackson Other Location Labs Other 01-09-2023 15:29-0400 Blood Pressure Location [facility] [place] 01-09-2023 15:29-0400 Diastolic blood pressure 98 mm[Hg] Colt [facility] [place] 01-09-2023 15:29-0400 Heart rate 80 /min Colt NILL [facility] [place] 01-09-2023 15:29-0400 Respiratory rate 16 /min Colt NILL [facility] [place] 01-09-2023 15:29-0400 Systolic blood pressure 146 mm[Hg] Colt NILL [facility] [place] Encounters Encounter Date Encounter Type Care Provider Facility Start: 10-29-2023 End: 10-29-2023 ambulatory RICARDO [facility] Start: 06-30-2023 End: 07-02-2023 ambulatory AB [facility] Start: 06-18-2023 ambulatory [facility] Start: 06-05-2023 Evaluation and manag ement of inpatient AISSATOU STONEMEBLANCA [facility] Start: 06-05-2023 Evaluation and manag ement of inpatient AISSATOU WILLIAMSON [facility] Start: 06-04-2023 Evaluation and manag ement of inpatient AISSATOU Foreman [facility] Start: 06-04-2023 Evaluation and manag ement of inpatient [facility] Start: 06-03-2023 Evaluation and manag ement of inpatient [facility] Start: 06-02-2023 Evaluation and manag ement of inpatient [facility] Start: 06-02-2023 Evaluation and manag ement of inpatient [facility] Start: 06-01-2023 Evaluation and manag ement of inpatient AISSATOU Foreman [facility] Start: 06-01-2023 Evaluation and manag ement of inpatient AISSATOU Foreman [facility] Start: 06-01-2023 Evaluation and manag ement of inpatient AISSATOU Foreman [facility] Start: 05-31-2023 Evaluation and manag ement of inpatient DEVAUGHN [facility] Start: 05-31-2023 Evaluation and manag ement of inpatient AISSATOU Foreman [facility] Start: 05-31-2023 Evaluation and manag ement of inpatient AISSATOU Foreman [facility] Start: 05-31-2023 Evaluation and manag ement of inpatient AISSATOU Foreman [facility] Start: 05-30-2023 Evaluation [facility] manag ement [facility] Start: 05-30-2023 Evaluation and manag ement of inpatient AISSATOU Foreman [facility] Start: 05-30-2023 Evaluation and manag ement of inpatient AISSATOU Foreman [facility] Start: 05-30-2023 Evaluation and manag ement of inpatient AISSATOU Foreman [facility] Start: 05-29-2023 Evaluation and manag ement of inpatient AISSATOU Foreman [facility] Start: 05-29-2023 Evaluation and manag ement of inpatient AISSATOU STONEREYNAJACQUELINE [facility] Start: 05-29-2023 Evaluation and manag ement of inpatient AISSATOU Foreman CHELONIXONJER [facility] Start: 05-28-2023 Evaluation and manag ement of inpatient [facility] Start: 05-28-2023 Evaluation and manag ement of inpatient AISSATOU STONEREYNAJACQUELINE [facility] Start: 05-28-2023 Evaluation and manag ement of inpatient AISSATOU WILLIAMSON [facility] Start: 05-27-2023 Evaluation and manag ement of inpatient [facility] Start: 05-27-2023 Evaluation [facility] Start: 05-27-2023 End: 06-05-2023 Evaluation and management of inpatient [facility] Start: 05-14-2023 End: 05-15-2023 ambulatory [facility] Start: 05-14-2023 ambulatory AISSATOU Foreman TERI [facility] Start: 05-14-2023 End: 05-14-2023 ambulatory [facility] Start: 05-14-2023 End: 05-14-2023 ambulatory [facility] Start: 05-14-2023 End: 05-14-2023 Encounter for preprocedural cardiovascular examination [facility] Start: 05-10-2023 End: 05-10-2023 ambulatory Monica Jackson Other Location Labs Other Start: 05-10-2023 Office outpatient ne w 20 minutes Monica Jackson [facility] Start: 04-30-2023 End: 05-01-2023 ambulatory [facility] Start: 03-24-[address] [facility] Start: 02-12-2023 End: 02-12-2023 ambulatory ADONIS JACOB [facility] Start: 02-12-2023 Encounter for other preprocedural examination DR ADONIS JACOB [facility] Start: 02-12-2023 Encounter for preprocedural laboratory examination DR ADONIS JACOB [facility] Start: 02-06-2023 End: 02-07-[address] LAUREN VELASQUEZ . Facility:[facility] Start: 02-06-2023 End: 02-07-2023 Encounter for preprocedural laboratory examination DR LAUREN VELASQUEZ . Facility:[facility] Start: 01-20-2023 Encounter for genera l adult medical examination without abnormal findings DR LAUREN VELASQUEZ . [facility] Start: 01-14-2023 End: 01-15-[address] LAUREN VELASQUEZ . Facility:[facility] Start: 01-14-2023 End: 01-15-2023 Encounter for general adult medical examination without abnormal findings DR LAUREN VELASQUEZ . Facility: Start: 01-09-2023 End: 01-10-2023 ambulatory Colt STUART Facility:[facility] Start: 01-09-2023 End: 01-09-2023 Patient encounter procedure Colt STUART [facility] [place] Start: 12-16-2022 End: 12-17-[address] LAUREN VELASQUEZ . Facility: Start: 03-06-2022 End: 03-06-[address] LAUREN VELASQUEZ . Facility: Procedures Date Procedure Procedure Detail Performing Clinician Start: 06-30-2023 Follow-up visit ADONIS ANTONIO Start: 06-18-2023 Follow-up visit ADONIS ANTONIO Start: 03-24-2023 Follow-up visit ADONIS ANTONIO Start: 01-14-2023 Follow-up visit ADONIS ANTONIO Start: 01-14-2023 PSA screening MONICA SANTOS Comment on above: Performed By: #### [facility] #### [facility] [address] [place] [address] Dr. John Bertrand Open reduction of fracture with internal fixation Colt STUART Comment on above: right arm Immunizations Immunization Date Immunization Notes Care Provider Fa cility NEGATED: Highlighted row has not occurred!01-09-2023 influenza virus vaccine, unspecified formulation Colt STUART [facility] [place] NEGATED: Highlighted row has not occurred!01-09-2023 SARS-CoV-2 mRNA (tozinameran 5y-11y) vaccine Colt MYERSEmily [facility] [place] Payers Date Payer Category Payer Unknown [id number] [id number] 1965 Unknown [id number] 2.16.84 [id number] 1965 Unknown [id number] 2.16.84 [id number] 1965 Unknown [id number] 2.16.84 [id number] 1967 Unknown [id number] 2.16.84 [id number] 1965 Unknown [id number] 2.16.84 [id number] 1957 Self-pay [id number] 1957 Unknown [id number] 1957 Unknown [id number] Social History Date Type Detail Facility Start: 01-09-2023 Tobacco smoking status Never s moked tobacco (finding) [facility] [place] Tobacco smoking status Never [facility] [place] Sex Assigned At Male [facility] Functional Status Date Assessment Result Facility 01-09-2023 Functional Status N/A [facility] Clinical Notes 12-18-2022 to 10-29-2023 Note Date & Type Note Facility 10-29-2023 Note [facility] 06-30-2023 Note [facility] 06-18-2023 Note [facility] 06-05-2023 Note [facility] [place] 06-05-2023 Note [facility] 06-04-2023 Note [facility] [place] 06-04-2023 Note [facility] 06-04-2023 Note [facility] 06-04-2023 Note [facility] 06-03-2023 Note [facility] 06-03-2023 Note [facility] 06-03-2023 Note [facility] 06-03-2023 Note [facility] 06-03-2023 Note [facility] 06[facility]03-2023 Note [facility] 06-02-2023 Note [facility] 06-02-2023 Note [facility] 06-02-2023 Note [facility] 06-02-2023 Note [facility] 06[facility]02-2023 Note [facility] 06-02-2023 Note [facility] 06-02-2023 Note [facility] 06-02-2023 Note [facility] 06-01-2023 Note [facility] 06-01-2023 Note [facility] 06-01-2023 Note [facility] 06-01-2023 Note [facility] 06-01-2023 Note [facility] [place] 06-01-2023 Note [facility] [place] 06-01-2023 Note [facility] 05-31-2023 Note [facility] 05[facility]31-2023 Note [facility] 05[facility]31-2023 Note [facility] 05-31-2023 Note [facility] 05-31-2023 Note [facility] 05-30-2023 Note [facility] 05-30-2023 Note [facility] 05-30-2023 Note [facility] 05-30-2023 Note [facility] 05-29-2023 Note [facility] 05-29-2023 Note Physical Therapy Can cellation note for 05/29/2023Thursday Pt per nursing had one chest tube pulled but they are waiting for chest xray before pt can be seen . Administration Manager will recheck time permitting . Attempted time : 13:50-13:55 [facility] 05-29-2023 Note Occupational Therapy Occupational Therapy Treatment Patient Name: Flynn Arnett : 1965 Today's Date: 05/29/2023 Pt's chest tube being pulled at this time, will re attempt after x ray has been completed. BROCK Lima [facility] 05-29-2023 Note [facility] 05-29-2023 Note [facility] 05-28-2023 Note [facility] 05-28-2023 Note [facility] 05-28-2023 Note [facility] 05-28-2023 Note [facility] 05-28-2023 Note [facility] 05-27-2023 Note [facility] 05-27-2023 Note [facility] 05-27-2023 Note [facility] 05-22-2023 Note [facility] 05-14-2023 Note [facility] 05-10-2023 Evaluation note Encounter Date Diagnosis Assessment Notes May, Otalgia, left ear (ICD-10 - H92.02) May, Acute otitis externa of left ear, unspecified type (ICD-10 - H60.502) Otitis externa home care material was printed Plenty fluids, get plenty of rest. Take ibuprofen, 800 mg up to 3 times a day with food for mild to moderate pain. For severe pain add 2 extra strength Tylenol to your ibuprofen dose. Use the ciprofloxacin eardrops as prescribed, use the Debrox eardrops as prescribed. You may stop the Levaquin tablets. Follow-up with your family physician if no improvement by tomorrow. You may also follow-up with an brick offbearer if no improvement. Go to the ER for worsening symptoms or concerns May, Left ear impacted cerumen (ICD-10 - H61.22) Cerumen impaction home care material was printed May, Right ear impacted cerumen (ICD-10 - H61.21) [facility] NoteChief Complaint consultation for umbilical hernia HPI Staff 57 year old male presents on consultation from Dr. Velasquez for umbilical hernia. Reports umbilical bulge x 2-3 years. States this is enlarging and becoming more sore. Bowels moving well. Denies nausea orvomiting. CT abdomen/pelvis completed 12/16 with small fat-containing umbilical hernia. History of Present Illness 57 yo male with h/o hyperlipidemia, GERD, restless leg syndrome; referred for umbilical hernia; noticed this 2 years ago; increased soreness recently; recent abd/pelvic ct scan with 5 mm defect, small amount of fat in hernia sac, no inflammation or fluid; images reviewed; no previous abdominal operations, patient does do heavy lifting intermittently; no skin changes, no N/V, no bowel changes; on Diclofenac daily, no asa; no tobacco use. Review of Systems PHQ Score Initial Depression Screen Score: 0 ROS - Provider Constitutional: no fever, no sweats, no weight loss. Eyes: no glasses, no blurred vision, no visual loss. ENMT: no dentures, no hoarseness, no swallowing difficulties, no hearing loss, no ear infection(s),no nose bleeds. Cardiovascular: normal blood pressure, no chest pain, regular heartbeat, no heart murmur. Respiratory: no shortness of breath, no cough, no asthma, no wheezing. Gastrointestinal: no nausea, no vomiting, no diarrhea, no constipation, no blood in stool, no change in bowel habits, yes abdominal pain, no hepatitis. Genitourinary: no kidney stones, no urine infection, no dysuria. Musculoskeletal: no pain, no weakness. Skin: no changing moles, no rash, no skin lumps. Neurologic: no seizures, no epilepsy, no headache. Psychiatric: no emotional or psychiatric problem. Heme/Lymph: no bleeding problems, no anemia, no blood clots, no transfusions. Allergy/Immunologic: no swollen lymph nodes/glands, no IV drug abuse. Other: Additional ROS info: Except as noted in the above Review of Systems and in the History of Present Illness, all other systems have been reviewed and are negative or noncontributory. Physical Exam Vitals & Measurements HR: 80(Peripheral) RR: 16 BP: 146/98 HT: 68 in HT: 172.72 cm WT: 108.3 kg WT: 238.26 lb BMI: 36.3 HEENT: normal conjunctiva, sclera clear, no scleral icterus, EOM intact, PERRLA, oral mucosa moist without lesions. Neck: trachea midline, no mass, symmetric, no thyromegaly or nodules, no adenopathy Respiratory: lungs CTA, respirations non labored. Cardiovascular: regular rate and rhythm, no murmur, no pedal edema or varicosities. Gastrointestinal: soft, non distended, mild tenderness, at umbilicus, no skin changes 1 cm hernia sac, partially reducible; mild diastasis recti; no hepatosplenomegaly; normal bs Lymphatic: no cervical adenopathy, no supraclavicular adenopathy Musculoskeletal: normal gait, digits and nails without infection, nodes, cyanosis, clubbing. Skin: no rashes, no lesions, no ulcers, no subcutaneous nodules, induration. Psychiatric/Neuro: oriented to time, place, person, judgement normal, affect appropriate for age, insight intact, no focal deficits. Tests: x-rays reviewed, review of old records completed, Assessment/Plan 1. Umbilical hernia, incarcerated (K42.0: Umbilical hernia with obstruction, without gangrene) 5 mm defect, fat in hernia sac, no inflammatory changes; recommend NSAIDs; abd support via binder/belt/compression garment when lifting; call with problems/questions or if hernia enlarges; signs/symptoms of incarceration/strangulation of hernia explained in detail, and patient understands that he should seek prompt medical evaluation if they were to occur. Follow-up With When Contact Information YADI PEPE, BETI Lees Only if needed [address] [place] [address]- Additional Instructions: Problem List/Past Medical History Ongoing BMI 36.0-36.9,adult Diabetes GERD (gastroesophageal reflux disease) Hyperlipidemia Murmur Obesity Restless leg syndrome Umbilical hernia Umbilical hernia, incarcerated Historical No qualifying data Procedure/Surgical History ORIF - Open reduction and internal fixation of fracture. Medications acetaminophen-hydrocodone 325 mg-5 mg oral tablet, 1 tab(s), Oral, QID, PRN diclofenac sodium 75 mg Oral EC Tab, 75 mg= 1 tab(s), Oral, BID Narcan 4 mg/0.1 mL nasal spray, 4 mg, Nasal, As Directed Protonix, 40 mg, Oral, Daily tizanidine 4 mg oral capsule, 8 mg= 2 cap(s), Oral, TID, PRN Zetia 10 mg Tab, 10 mg= 1 tab(s), Oral, Daily Zocor 20 mg Tab, 20 mg= 1 tab(s), Oral, Once a day (at bedtime) Allergies No Known Allergies Social History Alcohol - Denies Alcohol Use, 01/13/2020 Current, 01/13/2020 Employment/School - No Risk, 01/14/2020 Exercise - Occasional exercise, 01/14/2020 Home/Environment - No Risk, 01/14/2020 Nutrition/Health - No Risk, 01/14/2020 Sexual - No Risk, 01/14/2020 Substance Abuse - Denies Substance Abuse, 01/13/2020 Current, 01/13/2020 Tobacco - Denies T (more content not included)...[facility] Comment on above:Result Comment: Electronically Signed By: YADI PEPE, Colt Dudley\.br\Date and Time Signed: 01/09/23 15:56 [id number] Hospital Discharge instructions Follow Up Care 12/18/2022 13:20:00 With:YADI PEPE, Colt Dudley, BETI Address: [address] [place] [phone] When: only if needed [facility] [place] Evaluation + Plan note No data available for this section [facility] [place] History general Narrative - Reported* Type Description Date Medical History GERD Medical History HYPERLIPIDEMIA Hospitalization History KNEE CELLULITIS Location Labs Other Progress note No data available for this section [facility] [place] Summary Purpose Family History No Family History Records FoundNo Family History Records FoundNo Family History Records Found Advance Directives No Advanced Directives Records FoundNo Advanced Directives Records FoundNo Advanced Directives Records Found Additional Source Comments Patient Care team informatio n (unrecognized section and content) Personnel Name: Lauren Velasquez MD Address: Address: [address] [place] [id number] (unrecognized sect ion and content) No Status Records FoundNo Status Records FoundNo Status Records Found INFORMATION SOURCE (unrecogn ized section and content) DATE CREATED AUTHOR 01/11/2023 [facility] DATE CREATED AUTHOR AUTHOR'S ORGANIZ ATION 02/13/2023 [facility] DATE CREATED AUTHOR AUTHOR'S ORGANIZ ATION 10/30/2023 [facility] REASON FOR VISIT (unrecogniz ed section and content) LEFT EAR, PAINFUL, HAD DROPS FROM DR, BUT IT IS NOT FEELING ANY BETTER FOR RECORDS PERTAINING TO PATIENTS WHO ARE OR HAVE BEEN ENROLLED IN A CHEMICAL DEPENDENCY/SUBSTANCEABUSE PROGRAM, SOME INFORMATION MAY BE OMITTED. This clinical summary was aggregated from multiple sources. Caution should be exercised in using it in the provision of clinical care. This summary normalizes information from multiple sources, and as a consequence, information in this document may materially change the coding, format and clinical context of patient data. In addition, data may be omitted in some cases. CLINICAL DECISIONS SHOULD BE BASED ON THE PRIMARY CLINICAL RECORDS. [facility] [employer] [facility]. provides no warranty or guarantee of the accuracy or completeness of information in this document.
[2023-10-31 12:47] LABS: Anion Gap 13.7; BUN Creatinine Ratio 12.8; Calcium 8.7 mg/dL (8.5-10.1); Carbon Dioxide 26.1 mmol/L (21.0-32.0); Chloride 102 mmol/L (98-107); Estimated GFR (African America >60 (>=60); Estimated GFR (Non-African Ame 60 (>=60); Glucose 180 mg/dL (74-106); Potassium 3.8 mmol/L (3.5-5.1); Sodium 138 mmol/L (136-145)
== END 2023-10-31 11:41 | disposition home or self-care (01) ==
LOC: LAB 11:40
PROVIDERS: PCP Family Medicine; Visit Provider Internal Medicine Interventional Cardiology
DX: I11.0 Hypertensive heart disease with heart failure (principal); I50.9 Heart failure, unspecified
CPT/HCPCS: 36415; 80048

== ENCOUNTER 2023-11-16 15:51 | Outpatient (OUT) | payer BC, SELFPAY ==
[2023-11-16 16:17] LABS: Anion Gap 11.9; BUN Creatinine Ratio 12.3; Calcium 8.7 mg/dL (8.5-10.1); Carbon Dioxide 27.8 mmol/L (21.0-32.0); Chloride 105 mmol/L (98-107); Estimated GFR (African America >60 (>=60); Estimated GFR (Non-African Ame 53 (>=60); Glucose 100 mg/dL (74-106); Potassium 3.7 mmol/L (3.5-5.1); Sodium 141 mmol/L (136-145)
== END 2023-11-16 15:52 | disposition home or self-care (01) ==
LOC: LAB 15:53
PROVIDERS: PCP Family Medicine; Visit Provider Nurse Practitioner Family
DX: I10 Essential (primary) hypertension (principal)
CPT/HCPCS: 36415; 80048

== ENCOUNTER 2023-11-30 11:30 | Emergency (ER) | payer BC, SELFPAY ==
[2023-11-30] VITALS (23 sets, daily range): BP systolic 100–178; BP diastolic 58–108; PULSE 54–76; RESP 12–26; TEMP 36.3; O2SAT 93–98; BMI 34.5
--- NOTE | 2023-11-30 11:53 | ECG_ITS ---
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
--- NOTE | 2023-11-30 11:53 | XR_ITS ---
The [address] [address] Patient Name: FLYNN ARNETT MRN: [id number] date: 1965 Sex: M Assigned Patient Location: ER Current Patient Location: ER Accession/Order Number: [id number] Exam Date: 11/30/2023 12:00 Report Date: 11/30/2023 12:19 At the request of: KATELIN HENRY Procedure: XR chest 1V EXAM: XR chest 1V HISTORY: chest pain COMPARISON: None. TECHNIQUE: AP view of the chest. FINDINGS: The cardiomediastinal silhouette is enlarged. The lungs are clear. There is no pneumothorax. No pleural effusion is noted. The osseous structures are intact. XR/XR chest 1V IMPRESSION: Cardiomegaly. Electronically authenticated by: AALIYAH NORIEGA Date: 11/30/2023 12:19
--- NOTE | 2023-11-30 11:55 | ED_ITS ---
HPI - Chest Pain General Chief Complaint: Chest Pain Stated Complaint: CHEST PAIN Time Seen by Provider: 11/30/23 11:43 Source: patient Mode of arrival: walk-in Limitations: no limitations History of Present Illness HPI narrative: 58-year-old female presents to the emergency department complaint of chest pain. Locates pain to the left side of his chest. Describes it as an ache. Onset 2 hours ago while at work. 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 States he feels, a little, short of breath. Patient with history of mitral valve replacement last summer. Denies any nausea, diaphoresis, dizziness. Denies known history of CAD. Quality: ache Severity: moderate Timin hours, improved Context: Normal setting and activity Modifying factors: none Associated symptoms: as above Related Data Home Medications Medication Instructions Recorded Confirmed Lactobacillus acidophilus 500 500 mmu cells PO DAILY 03/11/23 03/11/23 million cell tablet ascorbic acid (vitamin C) 500 mg 500 mg PO DAILY 03/11/23 03/11/23 tablet,extended release (C Complex) cinnamon bark 500 mg capsule 500 mg PO DAILY 03/11/23 03/11/23 (Cinnamon) diclofenac sodium 75 mg 75 mg PO Q12H 03/11/23 03/11/23 tablet,delayed release ezetimibe 10 mg tablet 10 mg PO DAILY 03/11/23 03/11/23 hydrocodone 5 mg-acetaminophen 325 1 tab PO Q4H 03/11/23 03/11/23 mg tablet pantoprazole 40 mg tablet,delayed 40 mg PO DAILY 03/11/23 03/11/23 release simvastatin 20 mg tablet 20 mg PO DAILY 03/11/23 03/11/23 Previous Rx's Medication Instructions Recorded meclizine 25 mg tablet 25 mg PO DAILY PRN dizziness or 03/11/23 vertigo #20 tabs Allergies Allergy/AdvReac Type Severity Reaction Status Date / Time No Known Drug Allergies Allergy Verified 03/11/23 10:52 Review of Systems ROS Narrative CONST: Denies fever, chills HENT: Denies congestion, sore throat EYES: Denies eye redness, visual disturbance RESP: + slight shortness of brreath. Denies chest tightness, cough CV: +chest pain.? Denies palpitations, peripheral edema GI: Denies abd pain, nausea, vomiting : Denies dysuria, flank pain MS: Denies back pain, myalgias SKIN: Denies color change, rash NEURO: Denies numbness, weakness PSYCHIATRIC: Denies confusion, agitation [facility] Social History Smoking status: Never smoker Exam Narrative Exam Narrative: Vital signs reviewed Nurses notes noted CONST: Nontoxic, well appearing, well nourished, in no distress.? No diaphoresis.?? HENT: normocephalic, atraumatic, moist mucous membrane, no abnormalities of the nose noted, hearing normal EYES: normal appearing conjunctiva, no apparent discharge bilat NECK: normal appearance, no JVD CV: normal rate, regular rhythm, no murmur, no peripheral edema RESP: normal effort, speaking in complete sentences. Lung sounds clear and equal bilat.? No wheezes, rales, rhonchi GI: normal bowel sounds, soft, nontender, no distension : no CVA tenderness MS: no edema, tenderness SKIN: no pallor NEURO: A&Ox 3 PSYCH: normal mood, affect Constitutional Vital Signs, click to edit/add: Last Vital Signs Temp 97.3 F L 11/30/23 11:44 Pulse 54 L 11/30/23 14:00 Resp 24 11/30/23 14:00 BP 129/75 11/30/23 13:45 Pulse Ox 97 11/30/23 14:00 O2 Del Method Room Air 11/30/23 11:44 Course Reevaluation(s) Reevaluation #1: On reevaluation, patient states that he is pain-free. Discussed with patient results, plan, and disposition. He is agreeable with plan. Time: 14:36 Vital Signs Vital signs: Vital Signs Temperature 97.3 F L 11/30/23 11:44 Pulse Rate 65 11/30/23 11:44 Respiratory Rate 16 11/30/23 11:44 Blood Pressure 178/108 H 11/30/23 11:44 Pulse Oximetry 98 11/30/23 11:44 Oxygen Delivery Method Room Air 11/30/23 11:44 Temperature 97.3 F L 11/30/23 11:44 Pulse Rate 54 L 11/30/23 14:00 Respiratory Rate 24 11/30/23 14:00 Blood Pressure 129/75 11/30/23 13:45 Pulse Oximetry 97 11/30/23 14:00 Oxygen Delivery Method Room Air 11/30/23 11:44 MDM - Chest Pain MDM Narrative Medical decision making narrative: This is a pleasant [id number] presents to the emergency department with complaint of chest pain. Onset about an hour prior to arrival while at work. 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 Locates pain to the left side of his chest, described as an ache. States he had a little shortness of breath. Denies nausea, diaphoresis. Patient with history of mitral valve replacement surgery last summer. He has history of diet-controlled diabetes, hyperlipidemia. Denies cigarette smoking. On arrival, afebrile, vital signs are stable. On exam, nontoxic, well-appearing patient in no apparent distress. He is not diaphoretic. Heart regular rate and rhythm. Lung sounds clear and equal bilaterally. No peripheral edema. Labs reveal no leukocytosis, anemia, electrolyte imbalance, renal impairment. LFTs, lipase unremarkable. Serial high-sensitivity troponins were negative x 2. BNP unremarkable. Chest x-ray imaging, per radiologist reveals no acute findings. EKG reveals no ST elevation, or other concerning changes. Chest pain of uncertain etiology favored ACS less likely based on negative biomarkers, nondiagnostic EKG. Pneumothorax less likely based on chest x-ray Symptoms improved and patient was chest pain-free at time of disposition. HEART Score for Major Cardiac Events from [email or web address] on 11/30/2023 All calculations should be rechecked by clinician prior to use RESULT SUMMARY: 3 points Low Score (0-3 points) Risk of MACE of 0.9-1.7%. INPUTS: History ?> 1 = Moderately suspicious EKG ?> 0 = Normal Age ?> 1 = 45-64 Risk factors ?> 1 = 1-2 risk factors Initial troponin ?> 0 = <=ormal limit Disposition ? The patient was discharged. Plan: Patient will be discharged to home. Condition at time of disposition: stable Patient will be placed on light duty. 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 He was given copy of his lab tests to follow-up with his crop quantitative geneticist as his creatinine has elevated a little bit. His sugar is also little elevated, patient is diet controlled diabetic and he was advised to closely follow his blood sugar levels over the next several days.? Advised to follow up with his provider. Advised to return for any worsening and/or development of new, concerning signs or symptoms PLEASE NOTE: Portions of the medical record may have been produced using electronic workday financials consultant and may contain errors with respect to translation of words which may not have been identified prior to finalization of the chart. Lab Data Attestation: I reviewed the patient's lab results. Labs: Lab Results 11/30/23 11/30/23 Range/Units 11:55 13:28 WBC 7.7 (4.0-11.0) 10^3/uL RBC 5.99 (4.70-6.10) 10^6/uL Hgb 15.7 (14.0-18.0) g/dL Hct 48.1 (42.0-54.0) % MCV 80.3 (80.0-94.0) fL MCH 26.2 (25.9-34.0) pg MCHC 32.6 (29.9-35.2) g/dL RDW 18.0 H (11.0-15.0) % Plt Count 249 (150-450) 10^3/uL MPV 10.2 (9.5-13.5) fL Neut % (Auto) 59.3 (43.0-75.0) % Lymph % (Auto) 30.5 (20.5-60.0) % [place] % (Auto) 6.0 (1.7-12.0) % Eos % (Auto) 3.3 (0.9-7.0) % Baso % (Auto) 0.5 (0.2-2.0) % Neut # (Auto) 4.6 (1.4-6.5) 10^3/uL Lymph # (Auto) 2.3 (1.2-3.8) 10^3/uL [place] # (Auto) 0.5 (0.3-0.8) 10^3/uL Eos # (Auto) 0.3 (0.0-0.7) 10^3/uL Baso # (Auto) 0.0 (0.0-0.1) 10^3/uL Abs Immat Gran (auto) 0.03 (0.00-0.03) 10^3/uL Imm/Tot Granulo (auto) 0.4 (0.0-0.5) % Sodium 141 (136-145) mmol/L Potassium 3.7 (3.5-5.1) mmol/L Chloride 105 (98-107) mmol/L Carbon Dioxide 24.1 (21.0-32.0) mmol/L Anion Gap 15.6 BUN 13.0 (7.0-18.0) mg/dL Creatinine 1.31 H (0.70-1.30) mg/dL Est GFR ( Amer) >60 (>=60) Est GFR (Non-Af Amer) 57 L (>=60) BUN/Creatinine Ratio 9.9 Glucose 218 H (74-106) mg/dL Calcium 9.0 (8.5-10.1) mg/dL Magnesium 2.1 (1.8-2.4) mg/dL Total Bilirubin 0.9 (0.2-1.0) mg/dL AST 27 (15-37) U/L ALT 43 (16-63) U/L Alkaline Phosphatase 78 (46-116) U/L Troponin I High Sens 8.7 6.2 (4.0-76.1) pg/mL NT-Pro-B Natriuret Pep 248.0 (<=900.0) pg/mL Total Protein 7.6 (6.4-8.2) g/dL Albumin 3.9 (3.4-5.0) g/dL Globulin 3.7 g/dL Albumin/Globulin Ratio 1.1 Lipase 21.0 (16.0-77.0) U/L Imaging Data Chest x-ray: Radiologist's impression: ITS Impressions Chest X-Ray 11/30/23 11:53 IMPRESSION: Cardiomegaly. Electronically authenticated by: AALIYAH NORIEGA Date: 11/30/2023 12:19 ECG Data ECG interpretation date: 11/30/23 ECG interpretation time: 11:53 Heart Score History: Moderately Suspicious ECG: Normal Age: >45-<65 years Risk Factors: 1 or 2 Risk Factors Troponin: <Normal Limit Total Heart Score Recommendations & Risks:: 3 Discharge Plan Discharge Chief Complaint: Chest Pain Clinical Impression: Creatinine elevation, Hyperglycemia, Chest pain Patient Disposition: Home, Self-Care Time of Disposition Decision: 14:35 Condition: Good Mode of Transportation: Private Vehicle Prescriptions / Home Meds: No Action simvastatin 20 mg tablet 20 mg PO DAILY pantoprazole 40 mg tablet,delayed release (DR/EC) 40 mg PO DAILY diclofenac sodium 75 mg tablet,delayed release (DR/EC) 75 mg PO Q12H ezetimibe 10 mg tablet 10 mg PO DAILY hydrocodone-acetaminophen 5-325 mg tablet 1 tab PO Q4H Lactobacillus acidophilus 500 million cell tablet 500 mmu cells PO DAILY ascorbic acid (vitamin C) [C Complex] 500 mg tablet extended release 500 mg PO DAILY cinnamon bark [Cinnamon] 500 mg capsule 500 mg PO DAILY meclizine 25 mg tablet 25 mg PO DAILY PRN (Reason: dizziness or vertigo) Qty: 20 0RF Instructions: Chest Pain (ED), Diabetic Hyperglycemia (ED) Stand Alone Forms: Portal Instructions Referrals: Giovanni Velasquez MD [Primary Care Provider] - 1 week Discharge Date/Time: 11/30/23 14:45
[2023-11-30 12:02] LABS: Basophils Percent Auto 0.5 % (0.2-2.0); Eosinophils Absolute Auto 0.3 10^3/uL (0.0-0.7); Eosinophils Percent Auto 3.3 % (0.9-7.0); Hematocrit 48.1 % (42.0-54.0); Hemoglobin 15.7 g/dL (14.0-18.0); Immature Granulocytes Abs Auto 0.03 10^3/uL (0.00-0.03); Immature Granulocytes Pct Auto 0.4 % (0.0-0.5); Lymphocytes Absolute Auto 2.3 10^3/uL (1.2-3.8); Lymphocytes Percent Auto 30.5 % (20.5-60.0); Mean Corpuscular HGB Conc 32.6 g/dL (29.9-35.2); Mean Corpuscular Hemoglobin 26.2 pg (25.9-34.0); Mean Corpuscular Volume 80.3 fL (80.0-94.0); Mean Platelet Volume 10.2 fL (9.5-13.5); Monocytes Absolute Auto 0.5 10^3/uL (0.3-0.8); Neutrophils Absolute Auto 4.6 10^3/uL (1.4-6.5); Neutrophils Percent Auto 59.3 % (43.0-75.0); Platelet Count 249 10^3/uL (150-450); Red Blood Count 5.99 10^6/uL (4.70-6.10); White Blood Count 7.7 10^3/uL (4.0-11.0)
[2023-11-30] MEDS: ASPIRIN 81 MG TAB.CHEW 324 MG PO (12:05)
[2023-11-30] MEDS: NITROGLYCERIN 0.4 MG BOTTLE SL (12:05)
[2023-11-30 12:23] LABS: Alanine Aminotransferase 43 U/L (16-63); Albumin Globulin Ratio 1.1; Albumin Level 3.9 g/dL (3.4-5.0); Alkaline Phosphatase 78 U/L (46-116); Anion Gap 15.6; Aspartate Amino Transferase 27 U/L (15-37); BUN Creatinine Ratio 9.9; Bilirubin Total 0.9 mg/dL (0.2-1.0); Carbon Dioxide 24.1 mmol/L (21.0-32.0); Chloride 105 mmol/L (98-107); Estimated GFR (African America >60 (>=60); Estimated GFR (Non-African Ame 57 (>=60); Globulin 3.7 g/dL; Glucose 218 mg/dL (74-106); Potassium 3.7 mmol/L (3.5-5.1); Sodium 141 mmol/L (136-145); Total Protein 7.6 g/dL (6.4-8.2)
[2023-11-30 12:28] LABS: Magnesium 2.1 mg/dL (1.8-2.4); Troponin I High Sensitivity 8.7 pg/mL (4.0-76.1)
--- NOTE | 2023-11-30 12:30 | PC.NURSE ---
PT RATING CHEST PAIN 3/10 AT THIS TIME, A LITTLE BETTER AFTER THE NITRO AND ASA. BP 100/68. ASKED MICHAEL HENRY IF HE WANTED ANOTHER NITRO DOSE AND HE DOES NOT AT THIS TIME.
[2023-11-30 14:20] LABS: Troponin I High Sensitivity 6.2 pg/mL (4.0-76.1)
== END 2023-11-30 14:45 | disposition home or self-care (01) ==
PROVIDERS: Physician Assistant; Emergency Provider Emergency Medicine; PCP Family Medicine
DX: R07.9 Chest pain, unspecified (principal); Z95.2 Presence of prosthetic heart valve; E11.65 Type 2 diabetes mellitus with hyperglycemia; R79.89 Other specified abnormal findings of blood chemistry; Z79.899 Other long term (current) drug therapy; E78.5 Hyperlipidemia, unspecified
CPT/HCPCS: 36415; 71045; 80053; 83690; 83735; 83880; 84484; 85025; 93005; 99285

== ENCOUNTER 2024-01-16 08:25 | Outpatient (OUT) | payer BC, SELFPAY ==
--- OUTSIDE RECORDS SUMMARY | 2024-01-16 08:30 | XMS_ITS | CCD ---
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 Apprentice Name Role Phone Lauren Velasquez Primary Care [...] DR SANCHEZ Consulting Unavailable Monica Jackson Unavailable FER LOYOLA Attending Unavailable ADONIS WEBSTER Referring Unavailable DEVAUGHN RESENDEZ Attending Unavailable AISSATOU WILLIAMSON Referring Unavailabl e DEVAUGHN RESENDEZ Referring Unavailable AISSATOU WILLIAMSON Referring Unavailabl e AISSATOU WILLIAMSON Referring Unavailabl e EDVAUGHN RESENDEZ Attending Unavailable DEVAUGHN RESENDEZ Admitting Unavailable ELTAHAWADONIS Schuler Attending Unavailable ADONIS WEBSTER Admitting Unavailable DEVAUGHN RESENDEZ Referring Unavailable DEVAUGHN RESENDEZ Referring Unavailable AISSATOU WILLIAMSON Referring Unavailabl e AISSATOU WILLIAMSON Referring Unavailabl e AISSATOU WILLIAMSON Referring Unavailabl e AISSATOU WILLIAMSON Referring Unavailabl e KULAKOWSKI, AISSATOU Foreman Referring Unavailabl e KULAKOWSKI, AISSATOU Foreman Referring Unavailabl e MILLA, FER Referring Unavailable KULAKOWSKI, AISSATOU Foreman Referring Unavailabl e CARRIZO, DEVAUGHN Referring Unavailable CARRIZO, DEVAUGHN Referring Unavailable KULAKOWSKI, AISSATOU Foreman Referring Unavailabl e KULAKOWSKI, AISSATOU Foreman Referring Unavailabl e CARRIZO, DEVAUGHN Referring Unavailable KULAKOWSKI, AISSATOU Foreman Referring Unavailabl e ELTAHAWY, ADONIS Referring Unavailable KULAKOWSKI, AISSATOU Foreman Referring Unavailabl e CARRIZO, DEVAUGHN Referring Unavailable KULAKOWSKI, AISSATOU Foreman Referring Unavailabl e ELTAHAWY, AB Attending Unavailable MILLA, FER Referring Unavailable KULAKOWSKI, AISSATOU Foreman Attending Unavailabl e ELTAHAWY, [facility] Attending Unavailable RICARDO KONG Attending Unavailable MILLA, FER Referring Unavailable MILLA, FER Referring Unavailable MILLA, FER Referring Unavailable KULAKOJACQUELINE, AISSATOU Foreman Referring Unavailabl e KULAKOWSKI, AISSATOU Foreman Referring Unavailabl e KULAKOWSKI, AISSATOU Foreman Referring Unavailabl e CARRIZO, DEVAUGHN Referring Unavailable KULAKOWSKI, AISSATOU Foreman Referring Unavailabl e CARRIZO, DEVAUGHN Referring Unavailable KULAKOWSKI, AISSATOU Foreman Referring Unavailabl e Medications Current Medications Medication Drug Class(es) Dates [...] Status: Ordered take 1 tablet by nikolay every six hours HYDROcodone-Acetaminophen 5-325 MG 1 [...] 01/13/20 Status: Ordered take 1 tablet by nikolay every twenty-four hours Pantoprazole Sodium 40 MG [...] disease (2 sources) Atherosclerotic heart disease of [place] coronary artery without angina pectoris; Translations: [Atherosclerotic heart disease of [place] coronary artery without angina pectoris] Onset: 05-27-2023 [...] Translations: [Rheumatic mitral valve disease, unspecified] Onset: 03-24-2023 Chronic Hypertension with complications and secondary hypertension (2 sources) Hypertensive heart disease with heart failure; Translations: [Hypertensive heart disease with heart failure] Onset: 06-30-2023 Chronic Other ear and sense organ disorders (1 [...] drug level monitoring] Onset: 05-14-2023 Episodic Other circulatory disease (2 sources) Other specified symptoms and signs involving the circulatory and respiratory systems; Translations: [Other specified symptoms and signs involving the circulatory and respiratory systems] Onset: 05-31-2023 Episodic Other gastrointestinal disorders (4 sources) Diarrhea, unspecified; Translations: [DIARRHEA UNSPECIFIED] Onset: 03-06-2022 Episodic Other screening for suspected conditions (not mental disorders or infectious disease) (3 sources) Encounter for screening for malignant neoplasm of prostate; Translations: [Abnormal findings on diagnostic imaging of heart and coronary circulation] Onset: 01-20-2023 Episodic Results Test Name Value Interpretation Reference Range Facility 36on 11-20-2023 36 Reviewed his labs. H is kidney function slightly bumped so he's probably on the dryer side. We can have him go back to 20mg daily and he can take an extra tablet for a few days when he feels more short of breath. Repeat BMP in 2-4 weeks. Thanks! [facility] 36on 11-06-2023 36 If he is feeling better on the increased dose of lasix would like for him to get a follow-up BMP sometime next week to check his kidney function to make sure we are not dehydrating him and okay to continue it. Thanks [facility] Orders Onlyon 10-29-2023 Orders Only [facility] Telemedicineon 10-29-2023 Telemedicine [facility] Telephoneon 10-29-2023 Telephone [facility] Orders Onlyon 08-26-2023 Orders Only [facility] 36on 07-22-2023 36 Per [facility] Cardiac Reha b, patient is requesting to return to work next week. He states his employer has arranged for him to do light duty. Is this ok with you? Please advise. Thanks. [facility] Documentationon 07-16-2023 Documentation [facility] 37on 06-18-2023 37 Normal [facility] 30on 06-05-2023 30 The patient is Moderately Stable - Low risk of patient condition declining or worsening The patient's goals for the shift include rest The clinical goals for the shift include maintain hemodynamics Normal [facility] BASIC METABOLIC PANELon 09- Anion gap [Moles/Vol] 9 mmol/L Normal 7-20 [facility] Comment on above: Performed By: #### L [id number] ####[facility] [place] [address] Calcium [Mass/Vol] 8.4 mg/dL Low 8.6-10.3 [facility] Comment on above: Performed By: #### L [id number] ####[facility] (BEAKER)[address] [place] [address] Chloride [Moles/Vol] 101 mmol/L Normal 98-107 [facility] Comment on above: Performed By: #### L [id number] ####[facility] (BEAKER)[address] [place] [address] CO2 [Moles/Vol] 27 mmol/L Normal 21-31 [facility] Comment on above: Performed By: #### L [id number] ####[facility] (BEAKER)[address] [place] [address] Creatinine [Mass/Vol] 1.12 mg/dL Normal 0.60-1.30 [facility] Comment on above: Performed By: #### L [id number] ####[facility] (BEAKER)[address] [place] [address] GLOMERULAR FILTRATION RATE ML/MIN/1.73 SQ M.PREDICTED 58.1 mL/min/1.73m*2 Low >60.0 [facility] Comment on above: Result Comment: The [facility]???s estimated glomerular filtration rate (eGFR) [...] of individuals. Performed By: #### L [id number] ####[facility] ([facility])[address] [place] [address] Glucose [Mass/Vol] 130 mg/dL High 70-100 [facility] Comment on above: Performed By: #### L [id number] ####[facility] ([facility])[address] [place] [address] Potassium [Moles/Vol] 4.3 mmol/L Normal 3.5-5.1 [facility] Comment on above: Performed By: #### L [id number] ####[facility] ([facility])[address] [place] [address] Sodium [Moles/Vol] 133 mmol/L Low 136-145 [facility] Comment on above: Performed By: #### L [id number] ####[facility] ([facility])[address] [place] [address] Urea nitrogen [Mass/Vol] 21 mg/dL Normal 7-25 [facility] Comment on above: Performed By: #### L [id number] ####[facility] ([facility])[address] [place] [address] UREA NITROGEN/CREATININE (MASS RATIO) IN SER/PLAS 18.8 Normal [facility] Comment on above: Performed By: #### L [id number] ####[facility] ([facility])[address] [place] [address] CBCon 06-05-2023 Erythrocyte distribution width (RBC) [Ratio] 14.2 % Normal 11.5-15.0 [facility] Comment on above: Performed By: #### L [id number] ####[facility] [place] [address] ERYTHROCYTE MEAN CORPUSCULAR HEMOGLOBIN CONCENTRATION (G/DL) BY AUTOMATED 32.9 g/dL Normal 32.0-35.0 [facility] Comment on above: Performed By: #### L [id number] ####[facility] ([facility])[address] [place] [address] Hematocrit (Bld) [Volume fraction] 31.3 % Low 36.0-55.0 [facility] Comment on above: Performed By: #### L [id number] ####[facility] ([facility])[address] [place] [address] Hemoglobin (Bld) [Mass/Vol] 10.3 g/dL Low 12.0-17.0 [facility] Comment on above: Performed By: #### L [id number] ####[facility] ([facility])[address] [place] [address] MCH (RBC) [Entitic mass] 27.2 pg Normal 27.0-33.0 [facility] Comment on above: Performed By: #### L [id number] ####[facility] ([facility])[address] [place] [address] MCV (RBC) [Entitic vol] 82.6 fL Normal 82.0-98.0 [facility] Comment on above: Performed By: #### L [id number] ####[facility] ([facility])[address] [place] [address] PLATELETS (10*3/UL) IN BLOOD AUTOMATED COUNT 365 10*3/uL Normal 150-400 [facility] Comment on above: Performed By: #### L [id number] ####[facility] ([facility])[address] [place] [address] RBC (Bld) [#/Vol] 3.79 10*6/uL Low 3.80-5.70 [facility] Comment on above: Performed By: #### L [id number] ####[facility] ([facility])[address] [place] [address] WBC (Bld) [#/Vol] 11.26 10*3/uL High 4.00-10.60 [facility] Comment on above: Performed By: #### L [id number] ####[facility] ([facility])[address] [place] [address] DSon 06-05-2023 DS [facility] MAGNESIUMon 06-05-2023 Magnesium [Mass/Vol] 1.9 mg/dL Normal 1.9-2.7 [facility] Comment on above: Performed By: #### L [id number] ####[facility] ([facility])[address] [place] [address] NURSNOTEon 06-05-2023 NURSNOTE Discharge instructio ns reviewed with pt and pt ; copy of paperwork given to pt. Pt assisted into wheelchair and transported to [facility] for discharge to home. [facility] POCT GLUCOSE METER UNSOLICIT ED RESULTSon 06-05-2023 Glucose [Mass/Vol] 135 mg/dL High 70-105 [facility] Comment on above: Order Comment: Waive d Testing in the ED is performed under the ED CLIA certificate #[id number]. Result Comment: [email or web address] Performed By: #### L [id number] ####[facility] ([facility])[address] [place] [address] 30on 06-04-2023 30 Normal [facility] 30 [facility] BASIC METABOLIC PANELon 08-3 Anion gap [Moles/Vol] 9 mmol/L Normal 7-20 [facility] Comment on above: Performed By: #### L [id number] ####[facility] ([facility])[address] [place] [address] Calcium [Mass/Vol] 8.3 mg/dL Low 8.6-10.3 [facility] Comment on above: Performed By: #### L [id number] ####[facility] [place] [address] Chloride [Moles/Vol] 98 mmol/L Normal 98-107 [facility] Comment on above: Performed By: #### L [id number] ####[facility] (BEAKER)[address] [place] [address] CO2 [Moles/Vol] 29 mmol/L Normal 21-31 [facility] Comment on above: Performed By: #### L [id number] ####[facility] (BEAKER)[address] [place] [address] Creatinine [Mass/Vol] 1.09 mg/dL Normal 0.60-1.30 [facility] Comment on above: Performed By: #### L [id number] ####[facility] [place] [address] GLOMERULAR FILTRATION RATE ML/MIN/1.73 SQ M.PREDICTED 60.0 mL/min/1.73m*2 Low >60.0 [facility] Comment on above: Result Comment: The [facility]???s estimated glomerular filtration rate (eGFR) [...] of individuals. Performed By: #### L [id number] ####[facility] (BEAKER)[address] [place] [address] Glucose [Mass/Vol] 125 mg/dL High 70-100 [facility] Comment on above: Performed By: #### L [id number] ####[facility] (BEAKER)[address] [place] [address] Potassium [Moles/Vol] 3.8 mmol/L Normal 3.5-5.1 [facility] Comment on above: Performed By: #### L [id number] ####[facility] (BEAKER)[address] [place] [address] Sodium [Moles/Vol] 132 mmol/L Low 136-145 [facility] Comment on above: Performed By: #### L [id number] ####[facility] [place] [address] Urea nitrogen [Mass/Vol] 27 mg/dL High 7-25 [facility] Comment on above: Performed By: #### L [id number] ####[facility] [place] [address] UREA NITROGEN/CREATININE (MASS RATIO) IN SER/PLAS 24.8 Normal [facility] Comment on above: Performed By: #### L [id number] ####[facility] [place] [address] CBCon 06-04-2023 Erythrocyte distribution width (RBC) [Ratio] 13.9 % Normal 11.5-15.0 [facility] Comment on above: Performed By: #### L [id number] ####[facility] ([facility])[address] [place] [address] ERYTHROCYTE MEAN CORPUSCULAR HEMOGLOBIN CONCENTRATION (G/DL) BY AUTOMATED 33.2 g/dL Normal 32.0-35.0 [facility] Comment on above: Performed By: #### L [id number] ####[facility] [place] [address] Hematocrit (Bld) [Volume fraction] 33.1 % Low 36.0-55.0 [facility] Comment on above: Performed By: #### L [id number] ####[facility] [place] [address] Hemoglobin (Bld) [Mass/Vol] 11.0 g/dL Low 12.0-17.0 [facility] Comment on above: Performed By: #### L [id number] ####[facility] ([facility] [place] [address] MCH (RBC) [Entitic mass] 27.6 pg Normal 27.0-33.0 [facility] Comment on above: Performed By: #### L [id number] ####[facility] ([facility])[address] [place] [address] MCV (RBC) [Entitic vol] 83.0 fL Normal 82.0-98.0 [facility] Comment on above: Performed By: #### L [id number] ####[facility] ([facility])[address] [place] [address] PLATELETS (10*3/UL) IN BLOOD AUTOMATED COUNT 372 10*3/uL Normal 150-400 [facility] Comment on above: Performed By: #### L [id number] ####[facility] ([facility])[address] [place] [address] RBC (Bld) [#/Vol] 3.99 10*6/uL Normal 3.80-5.70 [facility] Comment on above: Performed By: #### L [id number] ####[facility] ([facility])[address] [place] [address] WBC (Bld) [#/Vol] 11.64 10*3/uL High 4.00-10.60 [facility] Comment on above: Performed By: #### L [id number] ####[facility] ([facility])[address] [place] [address] MAGNESIUMon 06-04-2023 Magnesium [Mass/Vol] 2.0 mg/dL Normal 1.9-2.7 [facility] Comment on above: Performed By: #### L [id number] ####[facility] ([facility])[address] [place] [address] POCT GLUCOSE METER UNSOLICIT ED RESULTSon 06-04-2023 Glucose [Mass/Vol] 159 mg/dL High 70-105 [facility] Comment on above: Order Comment: Waive d Testing in the ED is performed under the ED CLIA certificate #[id number]. Result Comment: [email or web address] Performed By: #### L [id number] ####[facility] ([facility])[address] [place] [address] Glucose [Mass/Vol] 188 mg/dL High 70-105 [facility] Comment on above: Order Comment: Waive d Testing in the ED is performed under the ED CLIA certificate #[id number]. Result Comment: than sen2 Performed By: #### L [id number] ####[facility] ([employer])[address] [place] [address] Glucose [Mass/Vol] 185 mg/dL High 70-105 [facility] Comment on above: Order Comment: Waive d Testing in the ED is performed under the ED CLIA certificate #[id number]. Result Comment: than sen2 Performed By: #### L [id number] ####[facility] ([facility])[address] [place] [address] Glucose [Mass/Vol] 141 mg/dL High 70-105 [facility] Comment on above: Order Comment: Waive d Testing in the ED is performed under the ED CLIA certificate #[id number]. Result Comment: than sen2 Performed By: #### L [id number] ####[facility] [place] [address] 30on 06-03-2023 30 The patient is Moderately Stable - Low risk of patient condition declining or worsening The patient's goals for the shift include rest The clinical goals for the shift include decreased resp support Normal [facility] 30 Normal [facility] BASIC METABOLIC PANELon 08-3 Anion gap [Moles/Vol] 13 mmol/L Normal 7-20 [facility] Comment on above: Performed By: #### L [id number] ####[facility] [place] [address] Calcium [Mass/Vol] 9.0 mg/dL Normal 8.6-10.3 [facility] Comment on above: Performed By: #### L [id number] ####[facility] ([employer])[address] [place] [address] Chloride [Moles/Vol] 91 mmol/L Low 98-107 [facility] Comment on above: Performed By: #### L [id number] ####[facility] (BEAKER)[address] [place] [address] CO2 [Moles/Vol] 31 mmol/L Normal 21-31 [facility] Comment on above: Performed By: #### L [id number] ####[facility] (BEAKER)[address] [place] [address] Creatinine [Mass/Vol] 1.40 mg/dL High 0.60-1.30 [facility] Comment on above: Performed By: #### L [id number] ####[facility] (BEAKER)[address] [place] [address] GLOMERULAR FILTRATION RATE ML/MIN/1.73 SQ M.PREDICTED 44.4 mL/min/1.73m*2 Low >60.0 [facility] Comment on above: Result Comment: The [facility]???s estimated glomerular filtration rate (eGFR) [...] of individuals. Performed By: #### L [id number] ####[facility] (BEAKER)[address] [place] [address] Glucose [Mass/Vol] 179 mg/dL High 70-100 [facility] Comment on above: Performed By: #### L [id number] ####[facility] (BEAKER)[address] [place] [address] Potassium [Moles/Vol] 3.6 mmol/L Normal 3.5-5.1 [facility] Comment on above: Performed By: #### L [id number] ####[facility] (BEAKER)[address] [place] [address] Sodium [Moles/Vol] 131 mmol/L Low 136-145 [facility] Comment on above: Performed By: #### L [id number] ####[facility] [place] [address] Urea nitrogen [Mass/Vol] 33 mg/dL High 7-25 [facility] Comment on above: Performed By: #### L [id number] ####[facility] ([facility])[address] [place] [address] UREA NITROGEN/CREATININE (MASS RATIO) IN SER/PLAS 23.6 Normal [facility] Comment on above: Performed By: #### L [id number] ####[facility] ([facility])[address] [place] [address] CBCon 06-03-2023 Erythrocyte distribution width (RBC) [Ratio] 13.9 % Normal 11.5-15.0 [facility] Comment on above: Performed By: #### L [id number] ####[facility] ([facility])[address] [place] [address] ERYTHROCYTE MEAN CORPUSCULAR HEMOGLOBIN CONCENTRATION (G/DL) BY AUTOMATED 32.1 g/dL Normal 32.0-35.0 [facility] Comment on above: Performed By: #### L [id number] ####[facility] ([facility])[address] [place] [address] Hematocrit (Bld) [Volume fraction] 33.6 % Low 36.0-55.0 [facility] Comment on above: Performed By: #### L [id number] ####[facility] [place] [address] Hemoglobin (Bld) [Mass/Vol] 10.8 g/dL Low 12.0-17.0 [facility] Comment on above: Performed By: #### L [id number] ####[facility] [place] [address] MCH (RBC) [Entitic mass] 26.6 pg Low 27.0-33.0 [facility] Comment on above: Performed By: #### L [id number] ####[facility] [place] [address] MCV (RBC) [Entitic vol] 82.8 fL Normal 82.0-98.0 [facility] Comment on above: Performed By: #### L [id number] ####[facility] ([facility])[address] [place] [address] PLATELETS (10*3/UL) IN BLOOD AUTOMATED COUNT 327 10*3/uL Normal 150-400 [facility] Comment on above: Performed By: #### L [id number] ####[facility] ([facility])[address] [place] [address] RBC (Bld) [#/Vol] 4.06 10*6/uL Normal 3.80-5.70 [facility] Comment on above: Performed By: #### L [id number] ####[facility] ([facility])[address] [place] [address] WBC (Bld) [#/Vol] 11.45 10*3/uL High 4.00-10.60 [facility] Comment on above: Performed By: #### L [id number] ####[facility] ([facility])[address] [place] [address] MAGNESIUMon 06-03-2023 Magnesium [Mass/Vol] 2.2 mg/dL Normal 1.9-2.7 [facility] Comment on above: Performed By: #### L [id number] ####[facility] ([facility])[address] [place] [address] POCT GLUCOSE METER UNSOLICIT ED RESULTSon 06-03-2023 Glucose [Mass/Vol] 126 mg/dL High 70-105 [facility] Comment on above: Order Comment: Waive d Testing in the ED is performed under the ED CLIA certificate #[id number]. Result Comment: [email or web address] Performed By: #### L [id number] ####[facility] ([facility])[address] [place] [address] Glucose [Mass/Vol] 110 mg/dL High 70-105 [facility] Comment on above: Order Comment: Waive d Testing in the ED is performed under the ED CLIA certificate #[id number]. Result Comment: [email or web address] Performed By: #### L [id number] ####[facility] ([facility] [place] [address] Glucose [Mass/Vol] 207 mg/dL High 70-105 [facility] Comment on above: Order Comment: Waive d Testing in the ED is performed under the ED CLIA certificate #[id number]. Result Comment: [email or web address] Performed By: #### L [id number] ####[facility] ([facility])[address] [place] [address] Glucose [Mass/Vol] 166 mg/dL High 70-105 [facility] Comment on above: Order Comment: Waive d Testing in the ED is performed under the ED CLIA certificate #[id number]. Result Comment: [email or web address] Performed By: #### L [id number] ####[facility] ([facility])[address] [place] [address] 30on 06-02-2022 30 Normal [facility] 30 Normal [facility] BASIC METABOLIC PANELon 05-06 Anion gap [Moles/Vol] 12 mmol/L Normal 7-20 [facility] Comment on above: Performed By: #### L [id number] ####[facility] [place] [address] Calcium [Mass/Vol] 8.9 mg/dL Normal 8.6-10.3 [facility] Comment on above: Performed By: #### L [id number] ####[facility] (BEAKER)[address] [place] [address] Chloride [Moles/Vol] 90 mmol/L Low 98-107 [facility] Comment on above: Performed By: #### L [id number] ####[facility] ([facility])[address] [place] [address] CO2 [Moles/Vol] 33 mmol/L High 21-31 [facility] Comment on above: Performed By: #### L [id number] ####[facility] ([facility])[address] [place] [address] Creatinine [Mass/Vol] 1.33 mg/dL High 0.60-1.30 [facility] Comment on above: Performed By: #### L [id number] ####[facility] ([facility])[address] [place] [address] GLOMERULAR FILTRATION RATE ML/MIN/1.73 SQ M.PREDICTED 47.3 mL/min/1.73m*2 Low >60.0 [facility] Comment on above: Result Comment: The [facility]???s estimated glomerular filtration rate (eGFR) [...] of individuals. Performed By: #### L [id number] ####[facility] ([facility])[address] [place] [address] Glucose [Mass/Vol] 124 mg/dL High 70-100 [facility] Comment on above: Performed By: #### L [id number] ####[facility] ([facility])[address] [place] [address] Potassium [Moles/Vol] 3.8 mmol/L Normal 3.5-5.1 [facility] Comment on above: Performed By: #### L [id number] ####[facility] ([facility])[address] [place] [address] Sodium [Moles/Vol] 131 mmol/L Low 136-145 [facility] Comment on above: Performed By: #### L [id number] ####[facility] (BEAKER)[address] [place] [address] Urea nitrogen [Mass/Vol] 30 mg/dL High 7-25 [facility] Comment on above: Performed By: #### L [id number] ####[facility] [place] [address] UREA NITROGEN/CREATININE (MASS RATIO) IN SER/PLAS 22.6 Normal [facility] Comment on above: Performed By: #### L [id number] ####[facility] ([facility] [place] [address] CBCon 06-02-2023 Erythrocyte distribution width (RBC) [Ratio] 13.9 % Normal 11.5-15.0 [facility] Comment on above: Performed By: #### L [id number] ####[facility] ([facility])[address] [place], [place] [address] ERYTHROCYTE MEAN CORPUSCULAR HEMOGLOBIN CONCENTRATION (G/DL) BY AUTOMATED 32.4 g/dL Normal 32.0-35.0 [facility] Comment on above: Performed By: #### L [id number] ####[facility] ([facility])[address] [place], [place] [address] Hematocrit (Bld) [Volume fraction] 31.8 % Low 36.0-55.0 [facility] Comment on above: Performed By: #### L [id number] ####[facility] ([facility] [place], [place] [address] Hemoglobin (Bld) [Mass/Vol] 10.3 g/dL Low 12.0-17.0 [facility] Comment on above: Performed By: #### L [id number] ####[facility] ([facility] [place], [place] [address] MCH (RBC) [Entitic mass] 26.8 pg Low 27.0-33.0 [facility] Comment on above: Performed By: #### L [id number] ####[facility] ([facility] [place] [address] MCV (RBC) [Entitic vol] 82.6 fL Normal 82.0-98.0 [facility] Comment on above: Performed By: #### L [id number] ####[facility] ([facility])[address] [place] [address] PLATELETS (10*3/UL) IN BLOOD AUTOMATED COUNT 291 10*3/uL Normal 150-400 [facility] Comment on above: Performed By: #### L [id number] ####[facility] ([facility])[address] [place] [address] RBC (Bld) [#/Vol] 3.85 10*6/uL Normal 3.80-5.70 [facility] Comment on above: Performed By: #### L [id number] ####[facility] ([facility])[address] [place] [address] WBC (Bld) [#/Vol] 9.29 10*3/uL Normal 4.00-10.60 [facility] Comment on above: Performed By: #### L [id number] ####[facility] ([facility])[address] [place] [address] MAGNESIUMon 06-02-2023 Magnesium [Mass/Vol] 2.2 mg/dL Normal 1.9-2.7 [facility] Comment on above: Performed By: #### L [id number] ####[facility] ([facility])[address] [place] [address] POCT GLUCOSE METER UNSOLICIT ED RESULTSon 06-02-2023 Glucose [Mass/Vol] 185 mg/dL High 70-105 [facility] Comment on above: Order Comment: Waive d Testing in the ED is performed under the ED CLIA certificate #[id number]. Result Comment: [email or web address] Performed By: #### L [id number] ####[facility] ([facility])[address] [place] [address] Glucose [Mass/Vol] 122 mg/dL High 70-105 [facility] Comment on above: Order Comment: Waive d Testing in the ED is performed under the ED CLIA certificate #[id number]. Result Comment: [email or web address] Performed By: #### L [id number] ####[facility] ([facility])[address] [place] [address] Glucose [Mass/Vol] 188 mg/dL High 70-105 [facility] Comment on above: Order Comment: Waive d Testing in the ED is performed under the ED CLIA certificate #[id number]. Result Comment: [email or web address] Performed By: #### L [id number] ####[facility] ([facility])[address] [place] [address] Glucose [Mass/Vol] 169 mg/dL High 70-105 [facility] Comment on above: Order Comment: Waive d Testing in the ED is performed under the ED CLIA certificate #[id number]. Result Comment: [email or web address] Performed By: #### L [id number] ####[facility] ([facility]ER)[address] [place] [address] 30on 06-01-2022 30 Normal [facility] 30 Normal [facility] BASIC METABOLIC PANELon 05-06 Anion gap [Moles/Vol] 12 mmol/L Normal 7-20 [facility] Comment on above: Performed By: #### L [id number] ####[facility] ([facility]ER)[address] [place] [address] Calcium [Mass/Vol] 8.4 mg/dL Low 8.6-10.3 [facility] Comment on above: Performed By: #### L [id number] ####[facility] ([facility])[address] [place] [address] Chloride [Moles/Vol] 89 mmol/L Low 98-107 [facility] Comment on above: Performed By: #### L [id number] ####[facility] ([facility])[address] [place] [address] CO2 [Moles/Vol] 33 mmol/L High 21-31 [facility] Comment on above: Performed By: #### L [id number] ####[facility] ([facility])[address] [place] [address] Creatinine [Mass/Vol] 1.31 mg/dL High 0.60-1.30 [facility] Comment on above: Performed By: #### L [id number] ####[facility] ([facility])[address] [place] [address] GLOMERULAR FILTRATION RATE ML/MIN/1.73 SQ M.PREDICTED 48.1 mL/min/1.73m*2 Low >60.0 [facility] Comment on above: Result Comment: The [facility]???s estimated glomerular filtration rate (eGFR) [...] of individuals. Performed By: #### L [id number] ####[facility] ([facility])[address] [place] [address] Glucose [Mass/Vol] 141 mg/dL High 70-100 [facility] Comment on above: Performed By: #### L [id number] ####[facility] ([facility])[address] [place] [address] Potassium [Moles/Vol] 3.3 mmol/L Low 3.5-5.1 [facility] Comment on above: Performed By: #### L [id number] ####[facility] ([facility])[address] [place] [address] Sodium [Moles/Vol] 131 mmol/L Low 136-145 [facility] Comment on above: Performed By: #### L [id number] ####[facility] ([facility])[address] [place] [address] Urea nitrogen [Mass/Vol] 36 mg/dL High 7-25 [facility] Comment on above: Performed By: #### L [id number] ####[facility] ([facility] [place] [address] UREA NITROGEN/CREATININE (MASS RATIO) IN SER/PLAS 27.5 Normal [facility] Comment on above: Performed By: #### L [id number] ####[facility] ([facility] [place] [address] Anion gap [Moles/Vol] 9 mmol/L Normal 7-20 [facility] Comment on above: Performed By: #### L [id number] ####[facility] ([facility] [place] [address] Calcium [Mass/Vol] 8.4 mg/dL Low 8.6-10.3 [facility] Comment on above: Performed By: #### L [id number] ####[facility] ([facility] [place] [address] Chloride [Moles/Vol] 87 mmol/L Low 98-107 [facility] Comment on above: Performed By: #### L [id number] ####[facility] ([facility] [place] [address] CO2 [Moles/Vol] 37 mmol/L High 21-31 [facility] Comment on above: Performed By: #### L [id number] ####[facility] ([facility] [place] [address] Creatinine [Mass/Vol] 1.57 mg/dL High 0.60-1.30 [facility] Comment on above: Performed By: #### L [id number] ####[facility] ([facility] [place] [address] GLOMERULAR FILTRATION RATE ML/MIN/1.73 SQ M.PREDICTED 38.7 mL/min/1.73m*2 Low >60.0 [facility] Comment on above: Result Comment: The [facility]???s estimated glomerular filtration rate (eGFR) [...] of individuals. Performed By: #### L [id number] ####[facility] ([facility])[address] [place] [address] Glucose [Mass/Vol] 159 mg/dL High 70-100 [facility] Comment on above: Performed By: #### L [id number] ####[facility] ([facility])[address] [place] [address] Potassium [Moles/Vol] 3.2 mmol/L Low 3.5-5.1 [facility] Comment on above: Performed By: #### L [id number] ####[facility] ([facility])[address] [place] [address] Sodium [Moles/Vol] 130 mmol/L Low 136-145 [facility] Comment on above: Performed By: #### L [id number] ####[facility] ([facility])[address] [place] [address] Urea nitrogen [Mass/Vol] 39 mg/dL High 7-25 [facility] Comment on above: Performed By: #### L [id number] ####[facility] ([facility])[address] [place] [address] UREA NITROGEN/CREATININE (MASS RATIO) IN SER/PLAS 24.8 Normal [facility] Comment on above: Performed By: #### L [id number] ####[facility] ([facility])[address] [place] [address] CBCon 06-01-2023 Erythrocyte distribution width (RBC) [Ratio] 14.1 % Normal 11.5-15.0 [facility] Comment on above: Performed By: #### L [id number] ####[facility] [place] [address] ERYTHROCYTE MEAN CORPUSCULAR HEMOGLOBIN CONCENTRATION (G/DL) BY AUTOMATED 33.7 g/dL Normal 32.0-35.0 [facility] Comment on above: Performed By: #### L [id number] ####[facility] [place] [address] Hematocrit (Bld) [Volume fraction] 27.9 % Low 36.0-55.0 [facility] Comment on above: Performed By: #### L [id number] ####[facility] ([facility])[address] [place] [address] Hemoglobin (Bld) [Mass/Vol] 9.4 g/dL Low 12.0-17.0 [facility] Comment on above: Performed By: #### L [id number] ####[facility] ([facility])[address] [place] [address] MCH (RBC) [Entitic mass] 27.6 pg Normal 27.0-33.0 [facility] Comment on above: Performed By: #### L [id number] ####[facility] ([facility])[address] [place] [address] MCV (RBC) [Entitic vol] 81.8 fL Low 82.0-98.0 [facility] Comment on above: Performed By: #### L [id number] ####[facility] ([facility])[address] [place] [address] PLATELETS (10*3/UL) IN BLOOD AUTOMATED COUNT 238 10*3/uL Normal 150-400 [facility] Comment on above: Performed By: #### L [id number] ####[facility] ([facility])[address] [place] [address] RBC (Bld) [#/Vol] 3.41 10*6/uL Low 3.80-5.70 [facility] Comment on above: Performed By: #### L [id number] ####[facility] ([facility])[address] [place] [address] WBC (Bld) [#/Vol] 9.51 10*3/uL Normal 4.00-10.60 [facility] Comment on above: Performed By: #### L [id number] ####[facility] ([facility])[address] [place] [address] CONSULTon 06-01-2023 CONSULT Normal [facility] MAGNESIUMon 06-01-2023 Magnesium [Mass/Vol] 2.2 mg/dL Normal 1.9-2.7 [facility] Comment on above: Performed By: #### L [id number] ####[facility] ([facility])[address] [place] [address] Magnesium [Mass/Vol] 2.1 mg/dL Normal 1.9-2.7 [facility] Comment on above: Performed By: #### L [id number] ####[facility] ([facility])[address] [place] [address] Magnesium [Mass/Vol] 2.2 mg/dL Normal 1.9-2.7 [facility] Comment on above: Performed By: #### L [id number] ####[facility] ([facility])[address] [place] [address] Magnesium [Mass/Vol] 2.2 mg/dL Normal 1.9-2.7 [facility] Comment on above: Performed By: #### L [id number] ####[facility] ([facility])[address] [place] [address] PHOSPHORUSon 06-01-2023 Magnesium [Mass/Vol] 4.0 mg/dL Normal 2.5-5.0 [facility] Comment on above: Performed By: #### L [id number] ####[facility] ([facility])[address] [place] [address] POCT GLUCOSE METER UNSOLICIT ED RESULTSon 06-01-2023 Glucose [Mass/Vol] 134 mg/dL High 70-105 [facility] Comment on above: Order Comment: Waive d Testing in the ED is performed under the ED CLIA certificate #[id number]. Result Comment: [email or web address] Performed By: #### L [id number] ####[facility] ([facility]ER)[address] [place] [address] Glucose [Mass/Vol] 131 mg/dL High 70-105 [facility] Comment on above: Order Comment: Waive d Testing in the ED is performed under the ED CLIA certificate #[id number]. Result Comment: [email or web address] Performed By: #### L [id number] ####[facility] ([employer])[address] [place] [address] Glucose [Mass/Vol] 137 mg/dL High 70-105 [facility] Comment on above: Order Comment: Waive d Testing in the ED is performed under the ED CLIA certificate #[id number]. Result Comment: [email or web address] Performed By: #### L [id number] ####[facility] ([employer])[address] [place] [address] Glucose [Mass/Vol] 154 mg/dL High 70-105 [facility] Comment on above: Order Comment: Waive d Testing in the ED is performed under the ED CLIA certificate #[id number]. Result Comment: [email or web address] Performed By: #### L [id number] ####[facility] ([employer])[address] [place] [address] Glucose [Mass/Vol] 164 mg/dL High 70-105 [facility] Comment on above: Order Comment: Waive d Testing in the ED is performed under the ED CLIA certificate #[id number]. Result Comment: [email or web address] Performed By: #### L [id number] ####[facility] (BEAKER)[address] [facility] [address] POTASSIUMon 06-01-2023 Potassium [Moles/Vol] 3.4 mmol/L Low 3.5-5.1 [facility] Comment on above: Performed By: #### L [id number] ####[facility] (BEAKER)[address] [place] [address] Potassium [Moles/Vol] 3.4 mmol/L Low 3.5-5.1 [facility] Comment on above: Performed By: #### L [id number] ####[facility] (BEAKER)[address] [place] [address] 30on 05-31-2023 30 Normal [facility] 30 Normal [facility] ANESon 05-31-2023 ANES Normal [facility] BASIC METABOLIC PANELon 05-06 Anion gap [Moles/Vol] 11 mmol/L Normal - [facility] Comment on above: Performed By: #### L [id number] ####[facility] (BEAKER)[address] [place] [address] Calcium [Mass/Vol] 8.4 mg/dL Low 8.6-10.3 [facility] Comment on above: Performed By: #### L [id number] ####[facility] (BEAKER)[address] [place] [address] Chloride [Moles/Vol] 89 mmol/L Low 98-107 [facility] Comment on above: Performed By: #### L [id number] ####[facility] (BEAKER)[address] [place] [address] CO2 [Moles/Vol] 33 mmol/L High 21-31 [facility] Comment on above: Performed By: #### L [id number] ####[facility] ([facility]ER)[address] [place] [address] Creatinine [Mass/Vol] 1.56 mg/dL High 0.60-1.30 [facility] Comment on above: Performed By: #### L [id number] ####[facility] (BEAKER)[address] [place] [address] GLOMERULAR FILTRATION RATE ML/MIN/1.73 SQ M.PREDICTED 39.0 mL/min/1.73m*2 Low >60.0 [facility] Comment on above: Result Comment: The [facility]???s estimated glomerular filtration rate (eGFR) [...] of individuals. Performed By: #### L [id number] ####[facility] (BEAKER)[address] [address] Glucose [Mass/Vol] 132 mg/dL High 70-100 [facility] Comment on above: Performed By: #### L [id number] ####[facility] (BEAKER)[address] [place] [address] Potassium [Moles/Vol] 3.4 mmol/L Low 3.5-5.1 [facility] Comment on above: Performed By: #### L [id number] ####[facility] (BEAKER)[address] [place] [place] [address] Sodium [Moles/Vol] 130 mmol/L Low 136-145 [facility] Comment on above: Performed By: #### L [id number] ####[facility] (BEAKER)[address] [place] [place] [address] Urea nitrogen [Mass/Vol] 34 mg/dL High 7-25 [facility] Comment on above: Performed By: #### L [id number] ####[facility] (BEAKER)[address] [place] [address] UREA NITROGEN/CREATININE (MASS RATIO) IN SER/PLAS 21.8 Normal [facility] Comment on above: Performed By: #### L [id number] ####[facility] (BEAKER)[address] [place] [address] CBCon 05-31-2023 Erythrocyte distribution width (RBC) [Ratio] 14.1 % Normal 11.5-15.0 [facility] Comment on above: Performed By: #### L [id number] ####[facility] [place] [address] ERYTHROCYTE MEAN CORPUSCULAR HEMOGLOBIN CONCENTRATION (G/DL) BY AUTOMATED 32.9 g/dL Normal 32.0-35.0 [facility] Comment on above: Performed By: #### L [id number] ####[facility] [place] [address] Hematocrit (Bld) [Volume fraction] 27.7 % Low 36.0-55.0 [facility] Comment on above: Performed By: #### L [id number] ####[facility] ([facility])[address] [place] [address] Hemoglobin (Bld) [Mass/Vol] 9.1 g/dL Low 12.0-17.0 [facility] Comment on above: Performed By: #### L [id number] ####[facility] [place] [address] MCH (RBC) [Entitic mass] 27.0 pg Normal 27.0-33.0 [facility] Comment on above: Performed By: #### L [id number] ####[facility] [facility] [place] [address] MCV (RBC) [Entitic vol] 82.2 fL Normal 82.0-98.0 [facility] Comment on above: Performed By: #### L [id number] ####[facility] [place] [address] PLATELETS (10*3/UL) IN BLOOD AUTOMATED COUNT 175 10*3/uL Normal 150-400 [facility] Comment on above: Performed By: #### L [id number] ####[facility] (BEAKER)[address] [place] [address] RBC (Bld) [#/Vol] 3.37 10*6/uL Low 3.80-5.70 [facility] Comment on above: Performed By: #### L [id number] ####[facility] (BEAKER)[address] [place] [address] WBC (Bld) [#/Vol] 9.59 10*3/uL Normal 4.00-10.60 [facility] Comment on above: Performed By: #### L [id number] ####[facility] ([facility])[address] [place] [address] CO-OXIMETRYon 05-31-2023 CARBOXYHEMOGLOBIN/HE MOGLOBIN TOTAL % IN BLOOD 0.8 % Normal [facility] Comment on above: Performed By: #### L [id number] ####[facility] RESPIRATORY [id number] [place] [address] [facility] Hemoglobin (Bld) [Mass/Vol] 9.1 g/dL Normal [facility] Comment on above: Performed By: #### L [id number] ####[facility] RESPIR[facility] [id number] [place] [address] [facility] METHEMOGLOBIN/100 IN BLOOD 0.7 % Normal 0.0-1.5 [facility] Comment on above: Performed By: #### L [id number] ####[facility] RESPIRATORY [id number] [place] [address] [facility] Oxygen saturation in Blood 48.9 % Normal [facility] Comment on above: Performed By: #### L [id number] ####[facility] RESPIR[facility] [id number] [place] [address] [facility] OXYGENATED HEMOGLOBIN IN BLOOD 48.2 % Normal [facility] Comment on above: Performed By: #### L [id number] ####[facility] RESPIR[facility] [id number] [place] [address] [place] CONSULTon 05-31-2023 CONSULT Normal [facility] HPon 05-31-2023 HP Normal [facility] MAGNESIUMon 05-31-2023 Magnesium [Mass/Vol] 2.1 mg/dL Normal 1.9-2.7 [facility] Comment on above: Performed By: #### L [id number] ####[facility] ([facility])[address] [place] [address] PHOSPHORUSon 05-31-2023 Magnesium [Mass/Vol] 3.4 mg/dL Normal 2.5-5.0 [facility] Comment on above: Performed By: #### L [id number] ####[facility] ([facility])[address] [place] [address] POCT GLUCOSE METER UNSOLICIT ED RESULTSon 05-31-2023 Glucose [Mass/Vol] 197 mg/dL High 70-105 [facility] Comment on above: Order Comment: Waive d Testing in the ED is performed under the ED CLIA certificate #[id number]. Result Comment: [email or web address] Performed By: #### L [id number] ####[facility] ([facility])[address] [place] [address] Glucose [Mass/Vol] 123 mg/dL High 70-105 [facility] Comment on above: Order Comment: Waive d Testing in the ED is performed under the ED CLIA certificate #[id number]. Result Comment: [email or web address] Performed By: #### L [id number] ####[facility] ([facility])[address] [place] [address] Glucose [Mass/Vol] 119 mg/dL High 70-105 [facility] Comment on above: Order Comment: Waive d Testing in the ED is performed under the ED CLIA certificate #[id number]. Result Comment: [email or web address] Performed By: #### L [id number] ####[facility] ([facility])[address] [place] [address] Glucose [Mass/Vol] 132 mg/dL High 70-105 [facility] Comment on above: Order Comment: Waive d Testing in the ED is performed under the ED CLIA certificate #[id number]. Result Comment: [email or web address] Performed By: #### L [id number] ####[facility] ([facility])[address] [place] [address] 30on 08-26-2023 30 The patient is Moderately Unstable - Medium risk of patient condition declining or worsening The patient's goals for the shift include pain control The clinical goals for the shift include pain control and stable vitals Normal [facility] 30 Normal [facility] BASIC METABOLIC PANELon 08-2 Anion gap [Moles/Vol] 14 mmol/L Normal 7-20 [facility] Comment on above: Performed By: #### L [id number] ####[facility] ([facility])[address] [facility] [address] Calcium [Mass/Vol] 8.2 mg/dL Low 8.6-10.3 [facility] Comment on above: Performed By: #### L [id number] ####[facility] ([facility])[address] [facility] [address] Chloride [Moles/Vol] 93 mmol/L Low 98-107 [facility] Comment on above: Performed By: #### L [id number] ####[facility] ([facility])[address] [facility] [address] CO2 [Moles/Vol] 26 mmol/L Normal 21-31 [facility] Comment on above: Performed By: #### L [id number] ####[facility] ([facility])[address] [facility] [address] Creatinine [Mass/Vol] 1.10 mg/dL Normal 0.60-1.30 [facility] Comment on above: Performed By: #### L [id number] ####[facility] ([facility])[address] [place] [address] GLOMERULAR FILTRATION RATE ML/MIN/1.73 SQ M.PREDICTED 59.3 mL/min/1.73m*2 Low >60.0 [facility] Comment on above: Result Comment: The [facility]???s estimated glomerular filtration rate (eGFR) [...] of individuals. Performed By: #### L [id number] ####[facility] ([facility])[address] [place] [address] Glucose [Mass/Vol] 187 mg/dL High 70-100 [facility] Comment on above: Performed By: #### L [id number] ####[facility] ([facility])[address] [place] [address] Potassium [Moles/Vol] 3.5 mmol/L Normal 3.5-5.1 [facility] Comment on above: Performed By: #### L [id number] ####[facility] ([facility])[address] [place] [address] Sodium [Moles/Vol] 129 mmol/L Low 136-145 [facility] Comment on above: Performed By: #### L [id number] ####[facility] ([facility])[address] [place] [address] Urea nitrogen [Mass/Vol] 20 mg/dL Normal 7-25 [facility] Comment on above: Performed By: #### L [id number] ####[facility] ([facility])[address] [place] [address] UREA NITROGEN/CREATININE (MASS RATIO) IN SER/PLAS 18.2 Normal [facility] Comment on above: Performed By: #### L [id number] ####[facility] ([facility])[address] [place] [address] CBCon 05-30-2023 Erythrocyte distribution width (RBC) [Ratio] 14.4 % Normal 11.5-15.0 [facility] Comment on above: Performed By: #### L [id number] ####[facility] ([facility])[address] [place] [address] ERYTHROCYTE MEAN CORPUSCULAR HEMOGLOBIN CONCENTRATION (G/DL) BY AUTOMATED 33.1 g/dL Normal 32.0-35.0 [facility] Comment on above: Performed By: #### L [id number] ####[facility] ([facility])[address] [place] [address] Hematocrit (Bld) [Volume fraction] 29.9 % Low 36.0-55.0 [facility] Comment on above: Performed By: #### L [id number] ####[facility] ([facility])[address] [place] [address] Hemoglobin (Bld) [Mass/Vol] 9.9 g/dL Low 12.0-17.0 [facility] Comment on above: Performed By: #### L [id number] ####[facility] ([facility])[address] [place] [address] MCH (RBC) [Entitic mass] 27.4 pg Normal 27.0-33.0 [facility] Comment on above: Performed By: #### L [id number] ####[facility] ([facility])[address] [place] [address] MCV (RBC) [Entitic vol] 82.8 fL Normal 82.0-98.0 [facility] Comment on above: Performed By: #### L [id number] ####[facility] ([facility])[address] [place] [address] PLATELETS (10*3/UL) IN BLOOD AUTOMATED COUNT 126 10*3/uL Low 150-400 [facility] Comment on above: Performed By: #### L [id number] ####[facility] ([facility])[address] [place] [address] RBC (Bld) [#/Vol] 3.61 10*6/uL Low 3.80-5.70 [facility] Comment on above: Performed By: #### L [id number] ####[facility] ([facility])[address] [place] [address] WBC (Bld) [#/Vol] 10.66 10*3/uL High 4.00-10.60 [facility] Comment on above: Performed By: #### L [id number] ####[facility] ([facility])[address] [place] [address] MAGNESIUMon 05-30-2023 Magnesium [Mass/Vol] 1.9 mg/dL Normal 1.9-2.7 [facility] Comment on above: Performed By: #### L [id number] ####[facility] ([facility])[address] [place] [address] Magnesium [Mass/Vol] 2.0 mg/dL Normal 1.9-2.7 [facility] Comment on above: Performed By: #### L [id number] ####[facility] ([facility])[address] [place] [address] PHOSPHORUSon 05-30-2023 Magnesium [Mass/Vol] 2.6 mg/dL Normal 2.5-5.0 [facility] Comment on above: Performed By: #### L [id number] ####[facility] ([facility])[address] [place] [address] POCT GLUCOSE METER UNSOLICIT ED RESULTSon 05-30-2023 Glucose [Mass/Vol] 154 mg/dL High 70-105 [facility] Comment on above: Order Comment: Waive d Testing in the ED is performed under the ED CLIA certificate #[id number]. Result Comment: [email or web address] Performed By: #### L [id number] ####[facility] ([facility])[address] [place] [address] Glucose [Mass/Vol] 175 mg/dL High 70-105 [facility] Comment on above: Order Comment: Waive d Testing in the ED is performed under the ED CLIA certificate #[id number]. Result Comment: [email or web address] Performed By: #### L [id number] ####[facility] ([facility])[address] [place] [address] Glucose [Mass/Vol] 207 mg/dL High 70-105 [facility] Comment on above: Order Comment: Waive d Testing in the ED is performed under the ED CLIA certificate #[id number]. Result Comment: [email or web address] Performed By: #### L [id number] ####[facility] HOSP[facility] LAB (BEAKER)[address] [place] [address] Glucose [Mass/Vol] 172 mg/dL High 70-105 [facility] Comment on above: Order Comment: Waive d Testing in the ED is performed under the ED CLIA certificate #[id number]. Result Comment: [email or web address] Performed By: #### L [id number] ####[facility] LAB (BEAKER)[address] [place] [address] POTASSIUMon 05-30-2023 Potassium [Moles/Vol] 3.4 mmol/L Low 3.5-5.1 [facility] Comment on above: Performed By: #### L [id number] ####[facility] (BEAKER)[address] [place] [address] 30on 05-29-2023 30 Normal [facility] 30 Normal [facility] BASIC METABOLIC PANELon 05-06 Anion gap [Moles/Vol] 12 mmol/L Normal 7-20 [facility] Comment on above: Performed By: #### L [id number] ####[facility] (BEAKER)[address] [place] [address] Calcium [Mass/Vol] 8.5 mg/dL Low 8.6-10.3 [facility] Comment on above: Performed By: #### L [id number] ####[facility] HOSPITAL LAB (BEAKER)[address] [place] [address] Chloride [Moles/Vol] 94 mmol/L Low 98-107 [facility] Comment on above: Performed By: #### L [id number] ####[facility] (BEAKER)[address] [place] [address] CO2 [Moles/Vol] 26 mmol/L Normal 21-31 [facility] Comment on above: Performed By: #### L [id number] ####[facility] (BEAKER)[address] [place] [address] Creatinine [Mass/Vol] 1.13 mg/dL Normal 0.60-1.30 [facility] Comment on above: Performed By: #### L [id number] ####[facility] ([facility])[address] [place] [address] GLOMERULAR FILTRATION RATE ML/MIN/1.73 SQ M.PREDICTED 57.5 mL/min/1.73m*2 Low >60.0 [facility] Comment on above: Result Comment: The [facility]???s estimated glomerular filtration rate (eGFR) [...] of individuals. Performed By: #### L [id number] ####[facility] ([facility])[address] [place] [address] Glucose [Mass/Vol] 196 mg/dL High 70-100 [facility] Comment on above: Performed By: #### L [id number] ####[facility] ([facility])[address] [place] [address] Potassium [Moles/Vol] 3.9 mmol/L Normal 3.5-5.1 [facility] Comment on above: Performed By: #### L [id number] ####[facility] ([facility])[address] [place] [place] [address] Sodium [Moles/Vol] 128 mmol/L Low 136-145 [facility] Comment on above: Performed By: #### L [id number] ####[facility] [place] [address] Urea nitrogen [Mass/Vol] 21 mg/dL Normal 7-25 [facility] Comment on above: Performed By: #### L [id number] ####[facility] (BEAKER)[address] [place] [address] UREA NITROGEN/CREATININE (MASS RATIO) IN SER/PLAS 18.6 Normal [facility] Comment on above: Performed By: #### L [id number] ####[facility] (BEAKER)[address] [place] [address] Anion gap [Moles/Vol] 10 mmol/L Normal 7-20 [facility] Comment on above: Performed By: #### L [id number] ####[facility] (BEAKER)[address] [place] [address] Calcium [Mass/Vol] 8.5 mg/dL Low 8.6-10.3 [facility] Comment on above: Performed By: #### L [id number] ####[facility] (BEAKER)[address] [place] [address] Chloride [Moles/Vol] 96 mmol/L Low 98-107 [facility] Comment on above: Performed By: #### L [id number] ####[facility] (BEAKER)[address] [place] [address] CO2 [Moles/Vol] 28 mmol/L Normal 21-31 [facility] Comment on above: Performed By: #### L [id number] ####[facility] (BEAKER)[address] [place] [address] Creatinine [Mass/Vol] 1.22 mg/dL Normal 0.60-1.30 [facility] Comment on above: Performed By: #### L [id number] ####[facility] (BEAKER)[address] [place] [address] GLOMERULAR FILTRATION RATE ML/MIN/1.73 SQ M.PREDICTED 52.4 mL/min/1.73m*2 Low >60.0 [facility] Comment on above: Result Comment: The [facility]???s estimated glomerular filtration rate (eGFR) [...] of individuals. Performed By: #### L [id number] ####[facility] [place] [address] Glucose [Mass/Vol] 204 mg/dL High 70-100 [facility] Comment on above: Performed By: #### L [id number] ####[facility] [place] [address] Potassium [Moles/Vol] 4.1 mmol/L Normal 3.5-5.1 [facility] Comment on above: Performed By: #### L [id number] ####[facility] ([facility])[address] [place] [address] Sodium [Moles/Vol] 130 mmol/L Low 136-145 [facility] Comment on above: Performed By: #### L [id number] ####[facility] [place] [address] Urea nitrogen [Mass/Vol] 21 mg/dL Normal 7-25 [facility] Comment on above: Performed By: #### L [id number] ####[facility] ([facility])[address] [place] [address] UREA NITROGEN/CREATININE (MASS RATIO) IN SER/PLAS 17.2 Normal [facility] Comment on above: Performed By: #### L [id number] ####[facility] (BEAKER)[address] [facility] [place] [address] CBCon 05-29-2023 Erythrocyte distribution width (RBC) [Ratio] 14.6 % Normal 11.5-15.0 [facility] Comment on above: Performed By: #### L [id number] ####[facility] [place] [address] ERYTHROCYTE MEAN CORPUSCULAR HEMOGLOBIN CONCENTRATION (G/DL) BY AUTOMATED 33.3 g/dL Normal 32.0-35.0 [facility] Comment on above: Performed By: #### L [id number] ####[facility] [place] [address] Hematocrit (Bld) [Volume fraction] 32.1 % Low 36.0-55.0 [facility] Comment on above: Performed By: #### L [id number] ####[facility] [place] [address] Hemoglobin (Bld) [Mass/Vol] 10.7 g/dL Low 12.0-17.0 [facility] Comment on above: Performed By: #### L [id number] ####[facility] (BEAKER)[address] [place] [address] MCH (RBC) [Entitic mass] 27.8 pg Normal 27.0-33.0 [facility] Comment on above: Performed By: #### L [id number] ####[facility] [place] [address] MCV (RBC) [Entitic vol] 83.4 fL Normal 82.0-98.0 [facility] Comment on above: Performed By: #### L [id number] ####[facility] [place] [address] PLATELETS (10*3/UL) IN BLOOD AUTOMATED COUNT 135 10*3/uL Low 150-400 [facility] Comment on above: Performed By: #### L [id number] ####[facility] (BEAKER)[address] [place] [address] RBC (Bld) [#/Vol] 3.85 10*6/uL Normal 3.80-5.70 [facility] Comment on above: Performed By: #### L [id number] ####[facility] (BEAKER)[address] [place] [address] WBC (Bld) [#/Vol] 15.57 10*3/uL High 4.00-10.60 [facility] Comment on above: Performed By: #### L [id number] ####[facility] ([facility])[address] [place] [address] CONSULTon 05-29-2023 CONSULT Normal [facility] MAGNESIUMon 05-29-2023 Magnesium [Mass/Vol] 1.9 mg/dL Normal 1.9-2.7 [facility] Comment on above: Performed By: #### L [id number] ####[facility] ([facility])[address] [place] [address] Magnesium [Mass/Vol] 1.9 mg/dL Normal 1.9-2.7 [facility] Comment on above: Performed By: #### L [id number] ####[facility] ([facility])[address] [place] [address] PHOSPHORUSon 05-29-2023 Magnesium [Mass/Vol] 3.0 mg/dL Normal 2.5-5.0 [facility] Comment on above: Performed By: #### L [id number] ####[facility] ([facility])[address] [place] [address] POCT GLUCOSE METER UNSOLICIT ED RESULTSon 05-29-2023 Glucose [Mass/Vol] 202 mg/dL High 70-105 [facility] Comment on above: Order Comment: Waive d Testing in the ED is performed under the ED CLIA certificate #[id number]. Result Comment: [email or web address] Performed By: #### L [id number] ####[facility] ([facility])[address] [place] [address] Glucose [Mass/Vol] 185 mg/dL High 70-105 [facility] Comment on above: Order Comment: Waive d Testing in the ED is performed under the ED CLIA certificate #[id number]. Result Comment: [email or web address] Performed By: #### L [id number] ####[facility] ([facility])[address] [place] [address] Glucose [Mass/Vol] 171 mg/dL High 70-105 [facility] Comment on above: Order Comment: Waive d Testing in the ED is performed under the ED CLIA certificate #[id number]. Result Comment: [email or web address] Performed By: #### L [id number] ####[facility] ([facility])[address] [place] [address] Glucose [Mass/Vol] 181 mg/dL High 70-105 [facility] Comment on above: Order Comment: Waive d Testing in the ED is performed under the ED CLIA certificate #[id number]. Result Comment: [email or web address] Performed By: #### L [id number] ####[facility] ([facility])[address] [place] [address] 30on 05-28-2023 30 Normal [facility] APTTon 05-28-2023 ACTIVATED PARTIAL THROMBOPLASTIN TIME IN PPP BY COAGULATION ASSAY 28.3 Seconds Normal 25.0-35.0 [facility] Comment on above: Result Comment: Clin ical significance of the APTT is questionable in the presence of heparin. Performed By: #### L [id number] ####[facility] ([facility])[address] [place] [address] ARTERIAL BLOOD GAS WITH IONI ZED CALCIUMon 05-28-2023 Base excess Calc (Bld) [Moles/Vol] 0.7 mmol/L Normal -2.0-3.0 [facility] Comment on above: Performed By: #### L [id number] ####[facility] [id number] [place] [address] [facility] CALCIUM IONIZED (MMOL/L) IN BLOOD 1.06 mmol/L Low 1.15-1.33 [facility] Comment on above: Performed By: #### L [id number] ####[facility] RESPIRATORY [id number] [place] [address] [facility] CO2 (Bld) [Partial pressure] 40 mm[Hg] Normal 35-48 [facility] Comment on above: Performed By: #### L [id number] ####[facility] RESPIRATORY [id number] [address] HCO3 (Bld) [Moles/Vol] 25.4 mmol/L Normal 21.0-28.0 [facility] Comment on above: Performed By: #### L [id number] ####[facility] RESPIRATORY [id number] [address] LPM 15 Normal [facility] Comment on above: Performed By: #### L [id number] ####[facility] RESPIRATORY [id number] [address] Oxygen (Bld) [Partial pressure] 61 mm[Hg] Low 83-100 [facility] Comment on above: Performed By: #### L [id number] ####[facility] RESPIRATORY [id number] [place] [address] OXYGEN SATURATION (%) IN ARTERIAL BLOOD 93.4 % Low 94.0-98.0 [facility] Comment on above: Performed By: #### L [id number] ####[facility] RESPIRATORY [id number] [address] pH (Bld) 7.41 [pH] Normal 7.35-7.45 [facility] Comment on above: Performed By: #### L [id number] ####[facility] RESPIRATORY [id number] [place] [address] SOURCE OF OXYGEN SALTER Normal [facility] Comment on above: Performed By: #### L [id number] ####[facility] RESPIRATORY [id number] [place] [address] [facility] Base excess Calc (Bld) [Moles/Vol] 1.5 mmol/L Normal -2.0-3.0 [facility] Comment on above: Order Comment: CPAP +10 Performed By: #### L [id number] ####[facility] RESPIRATORY [id number] [address] CALCIUM IONIZED (MMOL/L) IN BLOOD 1.13 mmol/L Low 1.15-1.33 [facility] Comment on above: Order Comment: CPAP +10 Performed By: #### L [id number] ####[facility] RESPIRATORY [id number] [place] [address] [facility] CO2 (Bld) [Partial pressure] 43 mm[Hg] Normal 35-48 [facility] Comment on above: Order Comment: CPAP +10 Performed By: #### L [id number] ####[facility] RESPIRATORY [id number] [place] [address] [facility] FIO2 50 % Normal [facility] Comment on above: Order Comment: CPAP +10 Performed By: #### L [id number] ####[facility] RESPIRATORY [id number] [place] [address] [facility] HCO3 (Bld) [Moles/Vol] 26.6 mmol/L Normal 21.0-28.0 [facility] Comment on above: Order Comment: CPAP +10 Performed By: #### L [id number] ####[facility] RESPIRATORY [id number] [place] [address] [facility] Oxygen (Bld) [Partial pressure] 81 mm[Hg] Low 83-100 [facility] Comment on above: Order Comment: CPAP +10 Performed By: #### L [id number] ####[facility] RESPIRATORY [id number] [place] [address] [facility] OXYGEN SATURATION (%) IN ARTERIAL BLOOD 97.8 % Normal 94.0-98.0 [facility] Comment on above: Order Comment: CPAP +10 Performed By: #### L [id number] ####[facility] RESPIRATORY [id number] [place] [address] [facility] pH (Bld) 7.40 [pH] Normal 7.35-7.45 [facility] Comment on above: Order Comment: CPAP +10 Performed By: #### L [id number] ####[facility] RESPIRATORY [id number] [place] [address] [facility] SOURCE OF OXYGEN CPAP Normal [facility] Comment on above: Order Comment: CPAP +10 Performed By: #### L [id number] ####[facility] RESPIRATORY [id number] [place] [address] [facility] Base excess Calc (Bld) [Moles/Vol] 0.5 mmol/L Normal -2.0-3.0 [facility] Comment on above: Performed By: #### L [id number] ####[facility] RESPIRATORY [id number] [place] [address] [facility] CALCIUM IONIZED (MMOL/L) IN BLOOD 1.11 mmol/L Low 1.15-1.33 [facility] Comment on above: Performed By: #### L [id number] ####[facility] RESPIRATORY [id number] [place] [address] [facility] CO2 (Bld) [Partial pressure] 44 mm[Hg] Normal 35-48 [facility] Comment on above: Performed By: #### L [id number] ####[facility] RESPIRATORY [id number] [place] [address] [facility] HCO3 (Bld) [Moles/Vol] 26.0 mmol/L Normal 21.0-28.0 [facility] Comment on above: Performed By: #### L [id number] ####[facility] RESPIRATORY [id number] [place] [address] [facility] LPM 6 Normal [facility] Comment on above: Performed By: #### L [id number] ####[facility] RESPIRATORY [id number] [place] [address] [facility] Oxygen (Bld) [Partial pressure] 62 mm[Hg] Low 83-100 [facility] Comment on above: Performed By: #### L [id number] ####[facility] RESPIRATORY [id number] [place] [address] [facility] OXYGEN SATURATION (%) IN ARTERIAL BLOOD 92.6 % Low 94.0-98.0 [facility] Comment on above: Performed By: #### L [id number] ####[facility] RESPIRATORY [id number] [place] [address] [facility] pH (Bld) 7.38 [pH] Normal 7.35-7.45 [facility] Comment on above: Performed By: #### L [id number] ####[facility] RESPIRATORY [id number] [place] [address] [facility] SOURCE OF OXYGEN Nasal cannula Normal [facility] Comment on above: Performed By: #### L [id number] ####[facility] RESPIRATORY [id number] [place] [address] [place] BASIC METABOLIC PANELon 08-2 Anion gap [Moles/Vol] 10 mmol/L Normal 7-20 [facility] Comment on above: Performed By: #### L [id number] ####[facility] HOSPITAL LAB (BEAKER)[address] [place] [address] Calcium [Mass/Vol] 8.6 mg/dL Normal 8.6-10.3 [facility] Comment on above: Performed By: #### L [id number] ####[facility] [place] [address] Chloride [Moles/Vol] 108 mmol/L High 98-107 [facility] Comment on above: Performed By: #### L [id number] ####[facility] LAB (BEAKER)[address] [place] [address] CO2 [Moles/Vol] 28 mmol/L Normal 21-31 [facility] Comment on above: Performed By: #### L [id number] ####[facility] LAB (BEAKER)[address] [place] [address] Creatinine [Mass/Vol] 1.21 mg/dL Normal 0.60-1.30 [facility] Comment on above: Performed By: #### L [id number] ####[facility] [place] [address] GLOMERULAR FILTRATION RATE ML/MIN/1.73 SQ M.PREDICTED 52.9 mL/min/1.73m*2 Low >60.0 [facility] Comment on above: Result Comment: The [facility]???s estimated glomerular filtration rate (eGFR) [...] of individuals. Performed By: #### L [id number] ####[facility] LAB ([facility])[address] [place] [address] Glucose [Mass/Vol] 100 mg/dL Normal 70-100 [facility] Comment on above: Performed By: #### L [id number] ####[facility] LAB ([facility])[address] [place] [address] Potassium [Moles/Vol] 3.7 mmol/L Normal 3.5-5.1 [facility] Comment on above: Performed By: #### L [id number] ####[facility] LAB ([facility])[address] [place] [address] Sodium [Moles/Vol] 142 mmol/L Normal 136-145 [facility] Comment on above: Performed By: #### L [id number] ####[facility] LAB ([facility])[address] [facility] [address] Urea nitrogen [Mass/Vol] 18 mg/dL Normal 7-25 [facility] Comment on above: Performed By: #### L [id number] ####[facility] LAB ([facility])[address] [place] [address] UREA NITROGEN/CREATININE (MASS RATIO) IN SER/PLAS 14.9 Normal [facility] Comment on above: Performed By: #### L [id number] ####[facility] LAB ([facility])[address] [facility] [place] [address] CBCon 05-28-2023 Erythrocyte distribution width (RBC) [Ratio] 14.6 % Normal 11.5-15.0 [facility] Comment on above: Performed By: #### L [id number] ####[facility] LAB ([facility])[address] [place] [address] ERYTHROCYTE MEAN CORPUSCULAR HEMOGLOBIN CONCENTRATION (G/DL) BY AUTOMATED 33.4 g/dL Normal 32.0-35.0 [facility] Comment on above: Performed By: #### L [id number] ####[facility] [place] [address] Hematocrit (Bld) [Volume fraction] 32.9 % Low 36.0-55.0 [facility] Comment on above: Performed By: #### L [id number] ####[facility] ([facility] [place] [address] Hemoglobin (Bld) [Mass/Vol] 11.0 g/dL Low 12.0-17.0 [facility] Comment on above: Performed By: #### L [id number] ####[facility] LAB ([facility])[address] [place] [address] MCH (RBC) [Entitic mass] 27.6 pg Normal 27.0-33.0 [facility] Comment on above: Performed By: #### L [id number] ####[facility] LAB ([facility])[address] [place] [address] MCV (RBC) [Entitic vol] 82.5 fL Normal 82.0-98.0 [facility] Comment on above: Performed By: #### L [id number] ####[facility] LAB ([facility])[address] [place] [address] PLATELETS (10*3/UL) IN BLOOD AUTOMATED COUNT 151 10*3/uL Normal 150-400 [facility] Comment on above: Performed By: #### L [id number] ####[facility] LAB ([facility])[address] [place] [address] RBC (Bld) [#/Vol] 3.99 10*6/uL Normal 3.80-5.70 [facility] Comment on above: Performed By: #### L [id number] ####[facility] LAB ([facility])[address] [place] [address] WBC (Bld) [#/Vol] 11.65 10*3/uL High 4.00-10.60 [facility] Comment on above: Performed By: #### L [id number] ####[facility] (BEAKER)[address] [place] [address] CO-OXIMETRYon 05-28-2023 CARBOXYHEMOGLOBIN/HE MOGLOBIN TOTAL % IN BLOOD 1.3 % Normal [facility] Comment on above: Performed By: #### L [id number] ####[facility] RESPIRATORY [id number] [address] [facility] [place] [address] [place] Hemoglobin (Bld) [Mass/Vol] 11.3 g/dL Normal [facility] Comment on above: Performed By: #### L [id number] ####[facility] RESPIRATORY [id number] [place] [address] [place] METHEMOGLOBIN/100 IN BLOOD 0.8 % Normal 0.0-1.5 [facility] Comment on above: Performed By: #### L [id number] ####[facility] RESPIRATORY [id number] [facility] [address] [place] Oxygen saturation in Blood 60.1 % Normal [facility] Comment on above: Performed By: #### L [id number] ####[facility] RESPIRATORY [id number] [facility] [place] [address] [place] OXYGENATED HEMOGLOBIN IN BLOOD 58.8 % Normal [facility] Comment on above: Performed By: #### L [id number] ####[facility] RESPIRATORY [id number] [place] [address] [place] CONSULTon 05-28-2023 CONSULT Normal [facility] LACTIC ACID, PLASMAon 2022 LACTATE (MMOL/L) IN SER/PLAS 1.6 mmol/L Normal 0.5-2.2 [facility] Comment on above: Performed By: #### L [id number] ####[facility] HOSPITAL LAB (BEAKER)[address] [place] [address] LIPID PANELon 05-28-2023 CHOL/HDL 4.3 mg/dL Normal [facility] Comment on above: Performed By: #### L [id number] ####[facility] LAB (BEAKER)[address] [place] [address] Cholesterol [Mass/Vol] 111 mg/dL Low 120-200 [facility] Comment on above: Performed By: #### L [id number] ####[facility] LAB ([facility])[address] [facility] [address] Magnesium [Mass/Vol] 128 mg/dL Normal 40-149 [facility] Comment on above: Result Comment: TRIG LYCERIDE REFERENCE RANGE:20 YEARS AND OLDER CARDIOVASCULAR RISKLESS THAN 150 mg/dL LOW [id number] TO 199 mg/dL BORDERLINE [id number] mg/dL AND GREATER HIGH RISK Performed By: #### L [id number] ####[facility] ([facility])[address] [facility] [address] Magnesium [Mass/Vol] 59 mg/dL Normal 0-160 [facility] Comment on above: Performed By: #### L [id number] ####[facility] [facility] [place] [address] Magnesium [Mass/Vol] 26 mg/dL Normal 23-92 [facility] Comment on above: Performed By: #### L [id number] ####[facility] LAB ([facility])[address] [place] [address] NON HDL CHOL. (LDL+VLDL) 85 Normal [facility] Comment on above: Performed By: #### L [id number] ####[facility] ([facility])[address] [facility] [address] TOTAL VLDL-C 26 mg/dL Normal 0-40 [facility] Comment on above: Performed By: #### L [id number] ####[facility] LAB ([facility])[address] [facility] [address] MAGNESIUMon 05-28-2023 Magnesium [Mass/Vol] 1.9 mg/dL Normal 1.9-2.7 [facility] Comment on above: Performed By: #### L [id number] ####[facility] [place] [address] PHOSPHORUSon 05-28-2023 Magnesium [Mass/Vol] 3.9 mg/dL Normal 2.5-5.0 [facility] Comment on above: Performed By: #### L [id number] ####[facility] HOSPITAL LAB (BEAKER)[address] [place] [address] POCT GLUCOSE METER UNSOLICIT ED RESULTSon 05-28-2023 Glucose [Mass/Vol] 194 mg/dL High 70-105 [facility] Comment on above: Order Comment: Waive d Testing in the ED is performed under the ED CLIA certificate #[id number]. Result Comment: [email or web address] Performed By: #### L [id number] ####[facility] LAB ([facility])[address] [place] [address] Glucose [Mass/Vol] 170 mg/dL High 70-105 [facility] Comment on above: Order Comment: Waive d Testing in the ED is performed under the ED CLIA certificate #[id number]. Result Comment: jgig and Performed By: #### L [id number] ####[facility] LAB ([facility])[address] [place] [address] Glucose [Mass/Vol] 121 mg/dL High 70-105 [facility] Comment on above: Order Comment: Waive d Testing in the ED is performed under the ED CLIA certificate #[id number]. Result Comment: jgig and Performed By: #### L [id number] ####[facility] LAB ([employer])[address] [place] [address] Glucose [Mass/Vol] 132 mg/dL High 70-105 [facility] Comment on above: Order Comment: Waive d Testing in the ED is performed under the ED CLIA certificate #[id number]. Result Comment: jgig and Performed By: #### L [id number] ####[facility] LAB (BEAKER)[address] [place] [address] Glucose [Mass/Vol] 127 mg/dL High 70-105 [facility] Comment on above: Order Comment: Waive d Testing in the ED is performed under the ED CLIA certificate #[id number]. Result Comment: jgig and Performed By: #### L [id number] ####[facility]PITAL LAB ([facility] [place] [address] Glucose [Mass/Vol] 128 mg/dL High 70-105 [facility] Comment on above: Order Comment: Waive d Testing in the ED is performed under the ED CLIA certificate #[id number]. Result Comment: jgig and Performed By: #### L [id number] ####[facility] ([facility])[address] [place] [address] Glucose [Mass/Vol] 134 mg/dL High 70-105 [facility] Comment on above: Order Comment: Waive d Testing in the ED is performed under the ED CLIA certificate #[id number]. Result Comment: jgig and Performed By: #### L [id number] ####[facility] ([facility])[address] [place] [address] Glucose [Mass/Vol] 114 mg/dL High 70-105 [facility] Comment on above: Order Comment: Waive d Testing in the ED is performed under the ED CLIA certificate #[id number]. Result Comment: jgig and Performed By: #### L [id number] ####[facility] ([facility])[address] [place] [address] Glucose [Mass/Vol] 110 mg/dL High 70-105 [facility] Comment on above: Order Comment: Waive d Testing in the ED is performed under the ED CLIA certificate #[id number]. Result Comment: jgig and Performed By: #### L [id number] ####[facility] ([facility])[address] [place] [address] Glucose [Mass/Vol] 127 mg/dL High 70-105 [facility] Comment on above: Order Comment: Waive d Testing in the ED is performed under the ED CLIA certificate #[id number]. Result Comment: ebol tz Performed By: #### L [id number] ####[facility] LAB ([employer])[address] [place] [address] Glucose [Mass/Vol] 105 mg/dL Normal 70-105 [facility] Comment on above: Order Comment: Waive d Testing in the ED is performed under the ED CLIA certificate #[id number]. Result Comment: ebol tz Performed By: #### L [id number] ####[facility] HOSPITAL LAB (BEAKER)[address] [place] [address] Glucose [Mass/Vol] 90 mg/dL Normal 70-105 [facility] Comment on above: Order Comment: Waive d Testing in the ED is performed under the ED CLIA certificate #[id number]. Result Comment: ebol tz Performed By: #### L [id number] ####[facility] LAB (BEAKER)[address] [place] [address] Glucose [Mass/Vol] 90 mg/dL Normal 70-105 [facility] Comment on above: Order Comment: Waive d Testing in the ED is performed under the ED CLIA certificate #[id number]. Result Comment: ebol tz Performed By: #### L [id number] ####[facility] HOSPITAL LAB (BEAKER)[address] [place] [address] Glucose [Mass/Vol] 100 mg/dL Normal 70-105 [facility] Comment on above: Order Comment: Waive d Testing in the ED is performed under the ED CLIA certificate #[id number]. Result Comment: ebol tz Performed By: #### L [id number] ####[facility] HOSPITAL LAB (BEAKER)[address] [place] [address] Glucose [Mass/Vol] 118 mg/dL High 70-105 [facility] Comment on above: Order Comment: Waive d Testing in the ED is performed under the ED CLIA certificate #[id number]. Result Comment: ebol tz Performed By: #### L [id number] ####[facility] HOSPITAL LAB (BEAKER)[address] [place] [address] Glucose [Mass/Vol] 114 mg/dL High 70-105 [facility] Comment on above: Order Comment: Waive d Testing in the ED is performed under the ED CLIA certificate #[id number]. Result Comment: ebol tz Performed By: #### L [id number] ####[facility] LAB ([employer])[address] [place] [address] Glucose [Mass/Vol] 112 mg/dL High 70-105 [facility] Comment on above: Order Comment: Waive d Testing in the ED is performed under the ED CLIA certificate #[id number]. Result Comment: ebol tz Performed By: #### L [id number] ####[facility] LAB ([employer])[address] [place] [address] PROTIME-INRon 05-28-2023 INR IN PPP BY COAGULATION ASSAY 1.18 High 0.90-1.10 [facility] Comment on above: Result Comment: [...] CHEST 1995;108:[id number]. Performed By: #### L [id number] ####[facility] LAB ([employer])[address] [place] [address] PROTHROMBIN TIME (PT) IN PPP BY COAGULATION ASSAY 15.1 Seconds High 12.3-14.8 [facility] Comment on above: Performed By: #### L [id number] ####[facility] LAB ([employer])[address] [place] [address] [id number] 05-27-2023 [id number] Normal [facility] ANESon 05-27-2023 ANES Normal [facility] APTTon 05-27-2023 ACTIVATED PARTIAL THROMBOPLASTIN TIME IN PPP BY COAGULATION ASSAY 43.8 Seconds High 25.0-35.0 [facility] Comment on above: Result Comment: Clin ical significance of the APTT is questionable in the presence of heparin. Performed By: #### L [id number] ####[facility] ([facility])[address] [place] [address] ACTIVATED PARTIAL THROMBOPLASTIN TIME IN PPP BY COAGULATION ASSAY 28.0 Seconds Normal 25.0-35.0 [facility] Comment on above: Order Comment: Pre-o p diagnosis:Mitral valve disease [I05.9] Result Comment: Clin ical significance of the APTT is questionable in the presence of heparin. Performed By: #### L [id number] ####[facility] ([facility])[address] [place] [address] ARTERIAL BLOOD GAS WITH CO-O XIMETRYon 05-27-2023 Base excess Calc (Bld) [Moles/Vol] -3.0000 mmol/L Low -2.0-3.0 [facility] Comment on above: Order Comment: CPAP Performed By: #### L [id number] ####[facility] RESPIRATORY [id number] [place] [address] [place] CARBOXYHEMOGLOBIN/HE MOGLOBIN TOTAL % IN BLOOD 1.6 % Normal 0.0-3.0 [facility] Comment on above: Order Comment: CPAP Performed By: #### L [id number] ####[facility] [id number] [place] [address] [place] CO2 (Bld) [Partial pressure] 42 mm[Hg] Normal 35-48 [facility] Comment on above: Order Comment: CPAP Performed By: #### L [id number] ####[facility] [id number] [place] [address] [place] DEOXYGENATED HEMOGLOBIN IN BLOOD 3.5 % Normal 1-5 [facility] Comment on above: Order Comment: CPAP Performed By: #### L [id number] ####[facility] [id number] [facility], [place] [address] [place] FIO2 40 % Normal [facility] Comment on above: Order Comment: CPAP Performed By: #### L [id number] ####[facility] [id number] [place] [address] [place] HCO3 (Bld) [Moles/Vol] 22.7 mmol/L Normal 21.0-28.0 [facility] Comment on above: Order Comment: CPAP Performed By: #### L [id number] ####[facility] [id number] [place] [address] [facility] Hemoglobin (Bld) [Mass/Vol] 11.7 g/dL Normal 11.7-17.4 [facility] Comment on above: Order Comment: CPAP Performed By: #### L [id number] ####[facility] [id number] [place] [address] [facility] METHEMOGLOBIN/100 IN BLOOD 0.9 % Normal 0.0-1.5 [facility] Comment on above: Order Comment: CPAP Performed By: #### L [id number] ####[facility] [id number] [place] [address] [facility] Oxygen (Bld) [Partial pressure] 75 mm[Hg] Low 83-100 [facility] Comment on above: Order Comment: CPAP Performed By: #### L [id number] ####[facility] [id number] [place] [address] [facility] OXYGEN SATURATION (%) IN ARTERIAL BLOOD 96.4 % Normal 94.0-98.0 [facility] Comment on above: Order Comment: CPAP Performed By: #### L [id number] ####[facility] [id number] [place] [address] [facility] OXYGENATED HEMOGLOBIN IN BLOOD 94.1 % Normal 90.0-95.0 [facility] Comment on above: Order Comment: CPAP Performed By: #### L [id number] ####[facility] [id number] [address] PEEP 8 cmH2O Normal [facility] Comment on above: Order Comment: CPAP Performed By: #### L [id number] ####[facility] [id number] [address] pH (Bld) 7.34 [pH] Low 7.35-7.45 [facility] Comment on above: Order Comment: CPAP Performed By: #### L [id number] ####[facility] [id number] [place] [address] PRESSURE SUPPORT 10 Normal [facility] Comment on above: Order Comment: CPAP Performed By: #### L [id number] ####[facility] [id number] [place] [address] SOURCE OF OXYGEN Vent Normal [facility] Comment on above: Order Comment: CPAP Performed By: #### L [id number] ####[facility] [id number] [place] [address] ARTERIAL BLOOD GAS WITH IONI ZED CALCIUMon 05-27-2023 Base excess Calc (Bld) [Moles/Vol] -3.8000 mmol/L Low -2.0-3.0 [facility] Comment on above: Performed By: #### L [id number] ####[facility] [id number] [place] [address] CALCIUM IONIZED (MMOL/L) IN BLOOD 1.15 mmol/L Normal 1.15-1.33 [facility] Comment on above: Performed By: #### L [id number] ####[facility] [id number] [place], [place] [address] CO2 (Bld) [Partial pressure] 39 mm[Hg] Normal 35-48 [facility] Comment on above: Performed By: #### L [id number] ####[facility] [id number] [place] [address] HCO3 (Bld) [Moles/Vol] 21.5 mmol/L Normal 21.0-28.0 [facility] Comment on above: Performed By: #### L [id number] ####[facility] [id number] [place] [address] [place] LPM 6 Normal [facility] Comment on above: Performed By: #### L [id number] ####[facility] [id number] [place] [address] [place] Oxygen (Bld) [Partial pressure] 76 mm[Hg] Low 83-100 [facility] Comment on above: Performed By: #### L [id number] ####[facility] [id number] [place] [address] [facility] OXYGEN SATURATION (%) IN ARTERIAL BLOOD 96.1 % Normal 94.0-98.0 [facility] Comment on above: Performed By: #### L [id number] ####[facility] [id number] [place] [address] [facility] pH (Bld) 7.35 [pH] Normal 7.35-7.45 [facility] Comment on above: Performed By: #### L [id number] ####[facility] [id number] [place] [address] [facility] SOURCE OF OXYGEN Nasal cannula Normal [facility] Comment on above: Performed By: #### L [id number] ####[facility] [id number] [place] [address] [facility] BASIC METABOLIC PANELon 08-2 Anion gap [Moles/Vol] 11 mmol/L Normal 7-20 [facility] Comment on above: Performed By: #### L [id number] ####[facility] HOSPITAL LAB (BEAKER)[address] [facility] [address] Calcium [Mass/Vol] 8.4 mg/dL Low 8.6-10.3 [facility] Comment on above: Performed By: #### L [id number] ####[facility] HOSPITAL LAB (BEAKER)[address] [place] [address] Chloride [Moles/Vol] 111 mmol/L High 98-107 [facility] Comment on above: Performed By: #### L [id number] ####[facility] LAB (BEAKER)[address] [place] [address] CO2 [Moles/Vol] 23 mmol/L Normal 21-31 [facility] Comment on above: Performed By: #### L [id number] ####[facility] [place] [address] Creatinine [Mass/Vol] 1.24 mg/dL Normal 0.60-1.30 [facility] Comment on above: Performed By: #### L [id number] ####[facility] [place] [address] GLOMERULAR FILTRATION RATE ML/MIN/1.73 SQ M.PREDICTED 51.4 mL/min/1.73m*2 Low >60.0 [facility] Comment on above: Result Comment: The [facility]???s estimated glomerular filtration rate (eGFR) [...] of individuals. Performed By: #### L [id number] ####[facility] LAB ([facility] [place] [address] Glucose [Mass/Vol] 155 mg/dL High 70-100 [facility] Comment on above: Performed By: #### L [id number] ####[facility] LAB (BEAKER)[address] [place] [address] Potassium [Moles/Vol] 4.5 mmol/L Normal 3.5-5.1 [facility] Comment on above: Performed By: #### L [id number] ####[facility] LAB (BEAKER)[address] [place] [address] Sodium [Moles/Vol] 140 mmol/L Normal 136-145 [facility] Comment on above: Performed By: #### L [id number] ####[facility] HOSPITAL LAB (BEAKER)[address] [place] [address] Urea nitrogen [Mass/Vol] 16 mg/dL Normal 7-25 [facility] Comment on above: Performed By: #### L [id number] ####[facility] LAB (BEAKER)[address] [place] [address] UREA NITROGEN/CREATININE (MASS RATIO) IN SER/PLAS 12.9 Normal [facility] Comment on above: Performed By: #### L [id number] ####[facility] LAB (BEAKER)[address] [place] [address] Anion gap [Moles/Vol] 11 mmol/L Normal 7-20 [facility] Comment on above: Order Comment: Pre-o p diagnosis:Mitral valve disease [I05.9] Performed By: #### L [id number] ####[facility] LAB (BEAKER)[address] [place] [address] Calcium [Mass/Vol] 8.2 mg/dL Low 8.6-10.3 [facility] Comment on above: Order Comment: Pre-o p diagnosis:Mitral valve disease [I05.9] Performed By: #### L [id number] ####[facility] LAB (BEAKER)[address] [place] [address] Chloride [Moles/Vol] 111 mmol/L High 98-107 [facility] Comment on above: Order Comment: Pre-o p diagnosis:Mitral valve disease [I05.9] Performed By: #### L [id number] ####[facility] HOSPITAL LAB (BEAKER)[address] [place] [address] CO2 [Moles/Vol] 23 mmol/L Normal 21-31 [facility] Comment on above: Order Comment: Pre-o p diagnosis:Mitral valve disease [I05.9] Performed By: #### L [id number] ####[facility] HOSPITAL LAB (BEAKER)[address] [place] [address] Creatinine [Mass/Vol] 1.23 mg/dL Normal 0.60-1.30 [facility] Comment on above: Order Comment: Pre-o p diagnosis:Mitral valve disease [I05.9] Performed By: #### L [id number] ####[facility] LAB ([facility])[address] [address] GLOMERULAR FILTRATION RATE ML/MIN/1.73 SQ M.PREDICTED 51.9 mL/min/1.73m*2 Low >60.0 [facility] Comment on above: Order Comment: Pre-o p diagnosis:Mitral valve disease [I05.9] Result Comment: The [facility]???s estimated glomerular filtration rate (eGFR) [...] of individuals. Performed By: #### L [id number] ####[facility] LAB ([facility])[address] PetpaceCR[facility] [place] [address] Glucose [Mass/Vol] 172 mg/dL High 70-100 [facility] Comment on above: Order Comment: Pre-o p diagnosis:Mitral valve disease [I05.9] Performed By: #### L [id number] ####[facility] LAB ([facility])[address] [facility] [place] [address] Potassium [Moles/Vol] 3.9 mmol/L Normal 3.5-5.1 [facility] Comment on above: Order Comment: Pre-o p diagnosis:Mitral valve disease [I05.9] Performed By: #### L [id number] ####[facility] LAB ([facility])[address]Insp[address] Medical SystemsHELEN M[place] [address] Sodium [Moles/Vol] 141 mmol/L Normal 136-145 [facility] Comment on above: Order Comment: Pre-o p diagnosis:Mitral valve disease [I05.9] Performed By: #### L [id number] ####[facility] LAB (BEAKER)[address] [place] [address] Urea nitrogen [Mass/Vol] 14 mg/dL Normal 7-25 [facility] Comment on above: Order Comment: Pre-o p diagnosis:Mitral valve disease [I05.9] Performed By: #### L [id number] ####[facility] LAB (BEAKER)[address] [place] [address] UREA NITROGEN/CREATININE (MASS RATIO) IN SER/PLAS 11.4 Normal [facility] Comment on above: Order Comment: Pre-o p diagnosis:Mitral valve disease [I05.9] Performed By: #### L [id number] ####[facility] LAB ([facility])[address] [place] [address] CALCIUM, IONIZEDon CALCIUM IONIZED (MMOL/L) IN BLOOD 1.12 mmol/L Low 1.15-1.33 [facility] Comment on above: Performed By: #### C ALCIUM, IONIZED ####[facility] RES[facility] [id number] [place] [address] [facility] CALCIUM IONIZED (MMOL/L) IN BLOOD 1.13 mmol/L Low 1.15-1.33 [facility] Comment on above: Performed By: #### C ALCIUM, IONIZED ####[facility] RES[facility]IR[facility] [id number] [place] [address] [facility] CALCIUM IONIZED (MMOL/L) IN BLOOD 1.13 mmol/L Low 1.15-1.33 [facility] Comment on above: Performed By: #### C ALCIUM, IONIZED ####[facility] RES[facility] [id number] [place] [address] [place] CBCon 05-27-2023 Erythrocyte distribution width (RBC) [Ratio] 14.5 % Normal 11.5-15.0 [facility] Comment on above: Performed By: #### L [id number] ####[facility] LAB (BEAKER)[address] [place] [address] ERYTHROCYTE MEAN CORPUSCULAR HEMOGLOBIN CONCENTRATION (G/DL) BY AUTOMATED 32.9 g/dL Normal 32.0-35.0 [facility] Comment on above: Performed By: #### L [id number] ####[facility] LAB ([facility])[address] [place] [address] Hematocrit (Bld) [Volume fraction] 34.6 % Low 36.0-55.0 [facility] Comment on above: Performed By: #### L [id number] ####[facility] LAB ([facility])[address] [place] [address] Hemoglobin (Bld) [Mass/Vol] 11.4 g/dL Low 12.0-17.0 [facility] Comment on above: Performed By: #### L [id number] ####[facility] LAB ([facility])[address] [place] [address] MCH (RBC) [Entitic mass] 27.3 pg Normal 27.0-33.0 [facility] Comment on above: Performed By: #### L [id number] ####[facility] LAB ([facility])[address] [place] [address] MCV (RBC) [Entitic vol] 82.8 fL Normal 82.0-98.0 [facility] Comment on above: Performed By: #### L [id number] ####[facility] LAB ([facility])[address] [place] [address] PLATELETS (10*3/UL) IN BLOOD AUTOMATED COUNT 146 10*3/uL Low 150-400 [facility] Comment on above: Performed By: #### L [id number] ####[facility] LAB ([facility])[address] [place] [address] RBC (Bld) [#/Vol] 4.18 10*6/uL Normal 3.80-5.70 [facility] Comment on above: Performed By: #### L [id number] ####[facility] [place] [address] WBC (Bld) [#/Vol] 11.47 10*3/uL High 4.00-10.60 [facility] Comment on above: Performed By: #### L [id number] ####[facility] HOSPITAL LAB ([facility] [place] [address] Erythrocyte distribution width (RBC) [Ratio] 14.1 % Normal 11.5-15.0 [facility] Comment on above: Order Comment: Pre-o p diagnosis:Mitral valve disease [I05.9] Performed By: #### L [id number] ####[facility] LAB ([facility])[address] [place] [address] ERYTHROCYTE MEAN CORPUSCULAR HEMOGLOBIN CONCENTRATION (G/DL) BY AUTOMATED 33.6 g/dL Normal 32.0-35.0 [facility] Comment on above: Order Comment: Pre-o p diagnosis:Mitral valve disease [I05.9] Performed By: #### L [id number] ####[facility] LAB ([facility])[address] [place] [address] Hematocrit (Bld) [Volume fraction] 34.8 % Low 36.0-55.0 [facility] Comment on above: Order Comment: Pre-o p diagnosis:Mitral valve disease [I05.9] Performed By: #### L [id number] ####[facility] LAB ([facility])[address] [place] [address] Hemoglobin (Bld) [Mass/Vol] 11.7 g/dL Low 12.0-17.0 [facility] Comment on above: Order Comment: Pre-o p diagnosis:Mitral valve disease [I05.9] Performed By: #### L [id number] ####[facility] ([facility] [place] [address] MCH (RBC) [Entitic mass] 27.7 pg Normal 27.0-33.0 [facility] Comment on above: Order Comment: Pre-o p diagnosis:Mitral valve disease [I05.9] Performed By: #### L [id number] ####[facility] ([facility] [place] [address] MCV (RBC) [Entitic vol] 82.5 fL Normal 82.0-98.0 [facility] Comment on above: Order Comment: Pre-o p diagnosis:Mitral valve disease [I05.9] Performed By: #### L [id number] ####[facility] ([facility])[address] [place] [address] PLATELETS (10*3/UL) IN BLOOD AUTOMATED COUNT 158 10*3/uL Normal 150-400 [facility] Comment on above: Order Comment: Pre-o p diagnosis:Mitral valve disease [I05.9] Performed By: #### L [id number] ####[facility] LAB ([facility])[address] [place] [address] RBC (Bld) [#/Vol] 4.22 10*6/uL Normal 3.80-5.70 [facility] Comment on above: Order Comment: Pre-o p diagnosis:Mitral valve disease [I05.9] Performed By: #### L [id number] ####[facility] LAB ([facility])[address] [place] [address] WBC (Bld) [#/Vol] 15.57 10*3/uL High 4.00-10.60 [facility] Comment on above: Order Comment: Pre-o p diagnosis:Mitral valve disease [I05.9] Performed By: #### L [id number] ####[facility] LAB ([place])[address] [place] [address] CO-OXIMETRYon 05-27-2023 CARBOXYHEMOGLOBIN/HE MOGLOBIN TOTAL % IN BLOOD 1.2 % Normal [facility] Comment on above: Performed By: #### L [id number] ####[facility] RESPIR[facility] [id number] [place] [address] [place] Hemoglobin (Bld) [Mass/Vol] 11.4 g/dL Normal [facility] Comment on above: Performed By: #### L [id number] ####[facility] RESPIR[facility]ORY [id number] [address] [address] [place] METHEMOGLOBIN/100 IN BLOOD 0.5 % Normal 0.0-1.5 [facility] Comment on above: Performed By: #### L [id number] ####[facility] RESPIRATORY [id number] [place] [address] [place] Oxygen saturation in Blood 58.7 % Normal [facility] Comment on above: Performed By: #### L [id number] ####[facility] RESPIRATORY [id number] [place] [address] [place] OXYGENATED HEMOGLOBIN IN BLOOD 57.7 % Normal [facility] Comment on above: Performed By: #### L [id number] ####[facility] RESPIRATORY [id number] [place] [address] [place] CARBOXYHEMOGLOBIN/HE MOGLOBIN TOTAL % IN BLOOD 1.7 % Normal [facility] Comment on above: Performed By: #### L [id number] ####[facility] RESPIRATORY [id number] [place] [address] [facility] Hemoglobin (Bld) [Mass/Vol] 10.0 g/dL Normal [facility] Comment on above: Performed By: #### L [id number] ####[facility] RESPIRATORY [id number] [place] [address] [place] METHEMOGLOBIN/100 IN BLOOD 0.8 % Normal 0.0-1.5 [facility] Comment on above: Performed By: #### L [id number] ####[facility] RESPIRATORY [id number] [place] [address] [place] Oxygen saturation in Blood 63.9 % Normal [facility] Comment on above: Performed By: #### L [id number] ####[facility] RESPIRATORY [id number] [place] [address] [place] OXYGENATED HEMOGLOBIN IN BLOOD 62.2 % Normal [facility] Comment on above: Performed By: #### L [id number] ####[facility] RESPIRATORY [id number] [place] [address] [place] CONSULTon 05-27-2023 CONSULT Normal [facility] FIBRINOGENon 05-27-2023 Magnesium [Mass/Vol] 171 mg/dL Normal 150-425 [facility] Comment on above: Order Comment: Pre-o p diagnosis:Mitral valve disease [I05.9] Performed By: #### L [id number] ####[facility] LAB ([facility] [place] [address] HISTOLOGY - TISSUE EXAMon LAB AP CASE REPORT Normal [facility] Comment on above: Order Comment: Pre-o p diagnosis:Mitral valve disease [I05.9] Result Comment: Surg ical Pathology Case: [id number] Provider: Devaughn Resendez MD Collected: 05/27/2023 1057Ordering Location: [facility] Main Operating Room Received: 05/27/2023 1445Pathologist: ANTONIO Topecimen: Heart, MITRAL VALVE LEAFLET - P2 FOR HISTOLOGY Performed By: #### L [id number] ####[facility] LAB ([facility])[address] [place] [address] LAB AP CLINICAL INFORMATION [facility] Comment on above: Order Comment: Pre-o p diagnosis:Mitral valve disease [I05.9] Result Comment: Post -Op [id number] - Mitral valve disease [ICD-10-CM] Performed By: #### L [id number] ####[facility] LAB ([facility])[address] [place] [address] LAB AP GROSS DESCRIPTION A. Heart. [facility] Comment on above: Order Comment: [...] smooth cut surface. No calcifications are identified. Circulation Sales Representative sections are submitted in 1 cassette.Dani Maharaj, Pathologists' Asp Developer JannDatia Carrillo Pathologists' Asp Developer Performed By: #### L [id number] ####[facility] LAB ([facility] [place] [address] LAB AP MICROSCOPIC DESCRIPTION Microscopic examination performed. [facility] Comment on above: Order Comment: Pre-o p diagnosis:Mitral valve disease [I05.9] Performed By: #### L [id number] ####[facility] LAB ([facility])[address] [place] [address] LAB AP REPORT FINAL DIAGNOSIS NARRATIVE [facility] Comment on above: Order Comment: Pre-o p diagnosis:Mitral valve disease [I05.9] Result Comment: A. M itral valve leaflet, removal:- Valvular tissue with myxoid degeneration. Performed By: #### L [id number] ####[facility] LAB ([facility])[address] [place] [address] HPon 05-27-2023 [facility] HP H&P reviewed. The patient was examined and there are no changes to the H&P. Patient was treated for ear infection with full course of antibiotics and was seen by ENT 05/25/2023 Dr. Fernandez and was cleared for surgery. Plan for MVR today with Dr. Resendez. [facility] LACTIC ACID WITH 4 HOUR REFL EXon 05-27-2023 LACTATE (MMOL/L) IN SER/PLAS 2.2 mmol/L Normal 0.5-2.2 [facility] Comment on above: Order Comment: Pre-o p diagnosis:Mitral valve disease [I05.9] Performed By: #### L [id number] ####[facility] LAB ([facility])[address] [place] [address] Performed By: #### L [id number] ####[facility] ([facility])[address] [place] [address] LACTATE (MMOL/L) IN SER/PLAS 3.2 mmol/L Critically high 0.5-2.2 [facility] Comment on above: Order Comment: Pre-o p diagnosis:Mitral valve disease [I05.9] Performed By: #### L [id number] ####[facility] ([facility])[address] [place] [address] MAGNESIUMon 05-27-2023 Magnesium [Mass/Vol] 2.0 mg/dL Normal 1.9-2.7 [facility] Comment on above: Performed By: #### L [id number] ####[facility] ([facility])[address] [place] [address] Magnesium [Mass/Vol] 2.1 mg/dL Normal 1.9-2.7 [facility] Comment on above: Order Comment: Pre-o p diagnosis:Mitral valve disease [I05.9] Performed By: #### L [id number] ####[facility] ([facility])[address] [place] [address] OPNOTEon 05-27-2023 OPNOTE Normal [facility] PHOSPHORUSon 05-27-2023 Magnesium [Mass/Vol] 3.0 mg/dL Normal 2.5-5.0 [facility] Comment on above: Performed By: #### L [id number] ####[facility] ([facility])[address] [place] [address] POCT ACTIVATED CLOTTING TIME UNSOLICITED RESULTSon 05-27-2023 POC ACTIVATED CLOTTING TIME 114 sec Normal 82-152 [facility] Comment on above: Performed By: #### L [id number] ####[facility] LAB (BEAKER)[address] [place] [address] POC ACTIVATED CLOTTING TIME 107 sec Normal 82-152 [facility] Comment on above: Performed By: #### L [id number] ####[facility] (BEAKER)[address] [place] [address] POC ACTIVATED CLOTTING TIME 476 sec High 82-152 [facility] Comment on above: Performed By: #### L [id number] ####[facility] LAB (BEAKER)[address] [place] [address] POC ACTIVATED CLOTTING TIME 476 sec High 82-152 [facility] Comment on above: Performed By: #### L [id number] ####[facility] LAB (BEAKER)[address] [place] [address] POC ACTIVATED CLOTTING TIME 503 sec High 82-152 [facility] Comment on above: Performed By: #### L [id number] ####[facility] LAB (BEAKER)[address] [place] [address] POC ACTIVATED CLOTTING TIME 462 sec High 82-152 [facility] Comment on above: Performed By: #### L [id number] ####[facility] LAB (BEAKER)[address] [place] [address] POC ACTIVATED CLOTTING TIME 575 sec High 82-152 [facility] Comment on above: Performed By: #### L [id number] ####[facility] [place] [address] POC ACTIVATED CLOTTING TIME 717 sec High 82-152 [facility] Comment on above: Performed By: #### L [id number] ####[facility] LAB ([facility])[address] [place] [address] POC ACTIVATED CLOTTING TIME 587 sec High 82-152 [facility] Comment on above: Performed By: #### L [id number] ####[facility] LAB ([facility])[address] [place] [address] POC ACTIVATED CLOTTING TIME 427 sec High 82-152 [facility] Comment on above: Performed By: #### L [id number] ####[facility] LAB ([facility])[address] [place] [address] POC ACTIVATED CLOTTING TIME 120 sec Normal 82-152 [facility] Comment on above: Performed By: #### L [id number] ####[facility] LAB ([facility])[address] [place] [address] POCT GLUCOSE METER UNSOLICIT ED RESULTSon 05-27-2023 Glucose [Mass/Vol] 130 mg/dL High 70-105 [facility] Comment on above: Order Comment: Waive d Testing in the ED is performed under the ED CLIA certificate #[id number]. Result Comment: ebol tz Performed By: #### L [id number] ####[facility] LAB (BEAKER)[address] [place] [address] Glucose [Mass/Vol] 134 mg/dL High 70-105 [facility] Comment on above: Order Comment: Waive d Testing in the ED is performed under the ED CLIA certificate #[id number]. Result Comment: than sen2 Performed By: #### L [id number] ####[facility] [place] [address] Glucose [Mass/Vol] 156 mg/dL High 70-105 [facility] Comment on above: Order Comment: Waive d Testing in the ED is performed under the ED CLIA certificate #[id number]. Result Comment: than sen2 Performed By: #### L [id number] ####[facility] LAB ([facility])[address] [place] [address] Glucose [Mass/Vol] 147 mg/dL High 70-105 [facility] Comment on above: Order Comment: Waive d Testing in the ED is performed under the ED CLIA certificate #[id number]. Result Comment: than sen2 Performed By: #### L [id number] ####[facility] LAB ([facility])[address] [place] [address] Glucose [Mass/Vol] 154 mg/dL High 70-105 [facility] Comment on above: Order Comment: Waive d Testing in the ED is performed under the ED CLIA certificate #[id number]. Result Comment: than sen2 Performed By: #### L [id number] ####[facility] LAB ([facility])[address] [place] [address] Glucose [Mass/Vol] 133 mg/dL High 70-105 [facility] Comment on above: Order Comment: Waive d Testing in the ED is performed under the ED CLIA certificate #[id number]. Result Comment: lgal lo Performed By: #### L [id number] ####[facility] LAB ([facility])[address] [place] [address] POCT PERFUSION PANEL UNSOLIC ITED RESULTSon 05-27-2023 CO2 [Moles/Vol] 25.0 mmol/L Normal 21.0-29.0 [facility] Comment on above: Performed By: #### L [id number] ####[facility] LAB (BEAKER)[address] [place] [address] Glucose [Mass/Vol] 169 mg/dL High 70-105 [facility] Comment on above: Performed By: #### L [id number] ####[facility] LAB (BEAKER)[address] [place] [address] HCO3 (Bld) [Moles/Vol] 23.9 mmol/L Normal 23.0-28.0 [facility] Comment on above: Performed By: #### L [id number] ####[facility] LAB (BEAKER)[address] [place] [address] Hematocrit (Bld) [Volume fraction] 34 % Low 38-51 [facility] Comment on above: Performed By: #### L [id number] ####[facility] LAB (BEAKER)[address] [place] [address] Hemoglobin (Bld) [Mass/Vol] 11.6 g/dL Low 12.0-17.0 [facility] Comment on above: Performed By: #### L [id number] ####[facility] LAB (BEAKER)[address] [place] [address] POCT BASE EXCESS -2.0 mmol/L Normal -2.0-3.0 [facility] Comment on above: Performed By: #### L [id number] ####[facility] LAB (BEAKER)[address] [place] [address] POCT IONIZED CALCIUM 1.20 mmol/L Normal 1.12-1.32 [facility] Comment on above: Performed By: #### L [id number] ####[facility] LAB (BEAKER)[address] [place] [address] POCT PCO2 44.6 mmHg Normal 41.0-51.0 [facility] Comment on above: Performed By: #### L [id number] ####[facility] LAB (BEAKER)[address] [place] [address] POCT PH 7.34 Normal 7.31-7.41 [facility] Comment on above: Performed By: #### L [id number] ####[facility] LAB (BEAKER)[address] [place] [address] POCT PO2 249 mmHg High 80-105 [facility] Comment on above: Performed By: #### L [id number] ####[facility] LAB (BEAKER)[address] [place] [address] POCT SO2 100 % High 95-98 [facility] Comment on above: Performed By: #### L [id number] ####[facility] LAB (BEAKER)[address] [place] [address] Potassium [Moles/Vol] 3.8 mmol/L Normal 3.5-4.9 [facility] Comment on above: Performed By: #### L [id number] ####[facility] LAB (BEAKER)[address] [place] [address] Sodium [Moles/Vol] 143 mmol/L Normal 138.0-146.0 [facility] Comment on above: Performed By: #### L [id number] ####[facility] LAB (BEAKER)[address] [place] [address] CO2 [Moles/Vol] 24.0 mmol/L Normal 21.0-29.0 [facility] Comment on above: Performed By: #### L [id number] ####[facility] LAB (BEAKER)[address] [place] [address] Glucose [Mass/Vol] 170 mg/dL High 70-105 [facility] Comment on above: Performed By: #### L [id number] ####[facility] LAB (BEAKER)[address] [place] [address] HCO3 (Bld) [Moles/Vol] 22.8 mmol/L Low 23.0-28.0 [facility] Comment on above: Performed By: #### L [id number] ####[facility] LAB (BEAKER)[address] [place] [address] Hematocrit (Bld) [Volume fraction] 34 % Low 38-51 [facility] Comment on above: Performed By: #### L [id number] ####[facility] LAB (BEAKER)[address] [place] [address] Hemoglobin (Bld) [Mass/Vol] 11.6 g/dL Low 12.0-17.0 [facility] Comment on above: Performed By: #### L [id number] ####[facility] [place] [address] POCT BASE EXCESS -3.0 mmol/L Low -2.0-3.0 [facility] Comment on above: Performed By: #### L [id number] ####[facility] LAB ([facility])[address] [place] [address] POCT IONIZED CALCIUM 1.21 mmol/L Normal 1.12-1.32 [facility] Comment on above: Performed By: #### L [id number] ####[facility] [place] [address] POCT PCO2 41.2 mmHg Normal 41.0-51.0 [facility] Comment on above: Performed By: #### L [id number] ####[facility] LAB ([facility])[address] [place] [address] POCT PH 7.35 Normal 7.31-7.41 [facility] Comment on above: Performed By: #### L [id number] ####[facility] ([facility] [place] [address] POCT PO2 69 mmHg Low 80-105 [facility] Comment on above: Performed By: #### L [id number] ####[facility] LAB (BEAKER)[address] [place] [address] POCT SO2 93 % Low 95-98 [facility] Comment on above: Performed By: #### L [id number] ####[facility] LAB (BEAKER)[address] [place] [address] Potassium [Moles/Vol] 3.9 mmol/L Normal 3.5-4.9 [facility] Comment on above: Performed By: #### L [id number] ####[facility] LAB (BEAKER)[address] [place] [address] Sodium [Moles/Vol] 144 mmol/L Normal 138.0-146.0 [facility] Comment on above: Performed By: #### L [id number] ####[facility] [place] [address] CO2 [Moles/Vol] 29.0 mmol/L Normal 21.0-29.0 [facility] Comment on above: Performed By: #### L [id number] ####[facility] [place] [address] Glucose [Mass/Vol] 201 mg/dL High 70-105 [facility] Comment on above: Performed By: #### L [id number] ####[facility] LAB (BEAKER)[address] [place] [address] HCO3 (Bld) [Moles/Vol] 27.6 mmol/L Normal 23.0-28.0 [facility] Comment on above: Performed By: #### L [id number] ####[facility] LAB (BEAKER)[address] [place] [address] Hematocrit (Bld) [Volume fraction] 31 % Low 38-51 [facility] Comment on above: Performed By: #### L [id number] ####[facility] LAB (BEAKER)[address] [place] [address] Hemoglobin (Bld) [Mass/Vol] 10.5 g/dL Low 12.0-17.0 [facility] Comment on above: Performed By: #### L [id number] ####[facility] LAB (BEAKER)[address] [place] [address] POCT BASE EXCESS 3.0 mmol/L Normal -2.0-3.0 [facility] Comment on above: Performed By: #### L [id number] ####[facility] LAB (BEAKER)[address] [place] [address] POCT IONIZED CALCIUM 1.05 mmol/L Low 1.12-1.32 [facility] Comment on above: Performed By: #### L [id number] ####[facility] LAB (BEAKER)[address] [place] [address] POCT PCO2 43.4 mmHg Normal 41.0-51.0 [facility] Comment on above: Performed By: #### L [id number] ####[facility] LAB (BEAKER)[address] [place] [address] POCT PH 7.41 Normal 7.31-7.41 [facility] Comment on above: Performed By: #### L [id number] ####[facility] LAB (BEAKER)[address] [place] [address] POCT PO2 307 mmHg High 80-105 [facility] Comment on above: Performed By: #### L [id number] ####[facility] LAB (BEAKER)[address] [place] [address] POCT SO2 100 % High 95-98 [facility] Comment on above: Performed By: #### L [id number] ####[facility] LAB (BEAKER)[address] [place] [address] Potassium [Moles/Vol] 5.1 mmol/L High 3.5-4.9 [facility] Comment on above: Performed By: #### L [id number] ####[facility] LAB (BEAKER)[address] [place] [address] Sodium [Moles/Vol] 140 mmol/L Normal 138.0-146.0 [facility] Comment on above: Performed By: #### L [id number] ####[facility] LAB (BEAKER)[address] [place] [address] CO2 [Moles/Vol] 28.0 mmol/L Normal 21.0-29.0 [facility] Comment on above: Performed By: #### L [id number] ####[facility] LAB (BEAKER)[address] [place] [address] Glucose [Mass/Vol] 188 mg/dL High 70-105 [facility] Comment on above: Performed By: #### L [id number] ####[facility] LAB (BEAKER)[address] [place] [address] HCO3 (Bld) [Moles/Vol] 26.5 mmol/L Normal 23.0-28.0 [facility] Comment on above: Performed By: #### L [id number] ####[facility] LAB (BEAKER)[address] [place] [address] Hematocrit (Bld) [Volume fraction] 32 % Low 38-51 [facility] Comment on above: Performed By: #### L [id number] ####[facility] LAB (BEAKER)[address] [place] [address] Hemoglobin (Bld) [Mass/Vol] 10.9 g/dL Low 12.0-17.0 [facility] Comment on above: Performed By: #### L [id number] ####[facility] LAB (BEAKER)[address] [place] [address] POCT BASE EXCESS 2.0 mmol/L Normal -2.0-3.0 [facility] Comment on above: Performed By: #### L [id number] ####[facility] LAB (BEAKER)[address] [place] [address] POCT IONIZED CALCIUM 1.05 mmol/L Low 1.12-1.32 [facility] Comment on above: Performed By: #### L [id number] ####[facility] LAB (BEAKER)[address] [place] [address] POCT PCO2 40.4 mmHg Low 41.0-51.0 [facility] Comment on above: Performed By: #### L [id number] ####[facility] LAB (BEAKER)[address] [place] [address] POCT PH 7.43 High 7.31-7.41 [facility] Comment on above: Performed By: #### L [id number] ####[facility] LAB (BEAKER)[address] [place] [address] POCT PO2 284 mmHg High 80-105 [facility] Comment on above: Performed By: #### L [id number] ####[facility] LAB (BEAKER)[address] [place] [address] POCT SO2 100 % High 95-98 [facility] Comment on above: Performed By: #### L [id number] ####[facility] LAB (BEAKER)[address] [place] [address] Potassium [Moles/Vol] 4.9 mmol/L Normal 3.5-4.9 [facility] Comment on above: Performed By: #### L [id number] ####[facility] LAB (BEAKER)[address] [place] [address] Sodium [Moles/Vol] 139 mmol/L Normal 138.0-146.0 [facility] Comment on above: Performed By: #### L [id number] ####[facility] LAB (BEAKER)[address] [place] [address] CO2 [Moles/Vol] 31.0 mmol/L High 21.0-29.0 [facility] Comment on above: Performed By: #### L [id number] ####[facility] LAB (BEAKER)[address] [place] [address] Glucose [Mass/Vol] 178 mg/dL High 70-105 [facility] Comment on above: Performed By: #### L [id number] ####[facility] LAB (BEAKER)[address] [place] [address] HCO3 (Bld) [Moles/Vol] 29.2 mmol/L High 23.0-28.0 [facility] Comment on above: Performed By: #### L [id number] ####[facility] LAB (BEAKER)[address] [place] [address] Hematocrit (Bld) [Volume fraction] 33 % Low 38-51 [facility] Comment on above: Performed By: #### L [id number] ####[facility] LAB (BEAKER)[address] [address] Hemoglobin (Bld) [Mass/Vol] 11.2 g/dL Low 12.0-17.0 [facility] Comment on above: Performed By: #### L [id number] ####[facility] LAB (BEAKER)[address] [place] [address] POCT BASE EXCESS 3.0 mmol/L Normal -2.0-3.0 [facility] Comment on above: Performed By: #### L [id number] ####[facility] [address] POCT IONIZED CALCIUM 1.08 mmol/L Low 1.12-1.32 [facility] Comment on above: Performed By: #### L [id number] ####[facility] LAB (BEAKER)[address] [place] [address] POCT PCO2 52.8 mmHg High 41.0-51.0 [facility] Comment on above: Performed By: #### L [id number] ####[facility] LAB (BEAKER)[address] [place] [address] POCT PH 7.35 Normal 7.31-7.41 [facility] Comment on above: Performed By: #### L [id number] ####[facility] (BEAKER)[address] [place] [address] POCT PO2 337 mmHg High 80-105 [facility] Comment on above: Performed By: #### L [id number] ####[facility] (BEAKER)[address] [place] [address] POCT SO2 100 % High 95-98 [facility] Comment on above: Performed By: #### L [id number] ####[facility] LAB (BEAKER)[address] [place] [address] Potassium [Moles/Vol] 4.6 mmol/L Normal 3.5-4.9 [facility] Comment on above: Performed By: #### L [id number] ####[facility] LAB (BEAKER)[address] [place] [address] Sodium [Moles/Vol] 139 mmol/L Normal 138.0-146.0 [facility] Comment on above: Performed By: #### L [id number] ####[facility] [place] [address] CO2 [Moles/Vol] 31.0 mmol/L High 21.0-29.0 [facility] Comment on above: Performed By: #### L [id number] ####[facility] [place] [address] Glucose [Mass/Vol] 161 mg/dL High 70-105 [facility] Comment on above: Performed By: #### L [id number] ####[facility] LAB (BEAKER)[address] [place] [address] HCO3 (Bld) [Moles/Vol] 29.7 mmol/L High 23.0-28.0 [facility] Comment on above: Performed By: #### L [id number] ####[facility] LAB (BEAKER)[address] [place] [address] Hematocrit (Bld) [Volume fraction] 34 % Low 38-51 [facility] Comment on above: Performed By: #### L [id number] ####[facility] LAB (BEAKER)[address] [place] [address] Hemoglobin (Bld) [Mass/Vol] 11.6 g/dL Low 12.0-17.0 [facility] Comment on above: Performed By: #### L [id number] ####[facility] LAB (BEAKER)[address] [place] [address] POCT BASE EXCESS 4.0 mmol/L High -2.0-3.0 [facility] Comment on above: Performed By: #### L [id number] ####[facility] (BEAKER)[address] [place] [address] POCT IONIZED CALCIUM 1.08 mmol/L Low 1.12-1.32 [facility] Comment on above: Performed By: #### L [id number] ####[facility] LAB (BEAKER)[address] [place] [address] POCT PCO2 49.0 mmHg Normal 41.0-51.0 [facility] Comment on above: Performed By: #### L [id number] ####[facility] (BEAKER)[address] [place] [address] POCT PH 7.39 Normal 7.31-7.41 [facility] Comment on above: Performed By: #### L [id number] ####[facility] LAB (BEAKER)[address] [place] [address] POCT PO2 419 mmHg High 80-105 [facility] Comment on above: Performed By: #### L [id number] ####[facility] LAB (BEAKER)[address] [place] [address] POCT SO2 100 % High 95-98 [facility] Comment on above: Performed By: #### L [id number] ####[facility] LAB (BEAKER)[address] [place] [address] Potassium [Moles/Vol] 4.5 mmol/L Normal 3.5-4.9 [facility] Comment on above: Performed By: #### L [id number] ####[facility] (BEAKER)[address] [place] [address] Sodium [Moles/Vol] 139 mmol/L Normal 138.0-146.0 [facility] Comment on above: Performed By: #### L [id number] ####[facility] (BEAKER)[address] [place] [address] CO2 [Moles/Vol] 32.0 mmol/L High 21.0-29.0 [facility] Comment on above: Performed By: #### L [id number] ####[facility] (BEAKER)[address] [place] [address] Glucose [Mass/Vol] 146 mg/dL High 70-105 [facility] Comment on above: Performed By: #### L [id number] ####[facility] (BEAKER)[address] [place] [address] HCO3 (Bld) [Moles/Vol] 30.2 mmol/L High 23.0-28.0 [facility] Comment on above: Performed By: #### L [id number] ####[facility] (BEAKER)[address] [place] [address] Hematocrit (Bld) [Volume fraction] 33 % Low 38-51 [facility] Comment on above: Performed By: #### L [id number] ####[facility] LAB (BEAKER)[address] [place] [address] Hemoglobin (Bld) [Mass/Vol] 11.2 g/dL Low 12.0-17.0 [facility] Comment on above: Performed By: #### L [id number] ####[facility] LAB (BEAKER)[address] [place] [address] POCT BASE EXCESS 5.0 mmol/L High -2.0-3.0 [facility] Comment on above: Performed By: #### L [id number] ####[facility] (BEAKER)[address] [place] [address] POCT IONIZED CALCIUM 1.06 mmol/L Low 1.12-1.32 [facility] Comment on above: Performed By: #### L [id number] ####[facility] (BEAKER)[address] [place] [address] POCT PCO2 46.6 mmHg Normal 41.0-51.0 [facility] Comment on above: Performed By: #### L [id number] ####[facility] (BEAKER)[address] [place] [address] POCT PH 7.42 High 7.31-7.41 [facility] Comment on above: Performed By: #### L [id number] ####[facility] (BEAKER)[address] [place] [address] POCT PO2 340 mmHg High 80-105 [facility] Comment on above: Performed By: #### L [id number] ####[facility] (BEAKER)[address] [place] [address] POCT SO2 100 % High 95-98 [facility] Comment on above: Performed By: #### L [id number] ####[facility] ([facility]AK[facility])[address] [place] [address] Potassium [Moles/Vol] 4.0 mmol/L Normal 3.5-4.9 [facility] Comment on above: Performed By: #### L [id number] ####[facility] ([facility]AK[facility])[address] [place] [address] Sodium [Moles/Vol] 140 mmol/L Normal 138.0-146.0 [facility] Comment on above: Performed By: #### L [id number] ####[facility] ([facility])[address] [place] [address] CO2 [Moles/Vol] 30.0 mmol/L High 21.0-29.0 [facility] Comment on above: Performed By: #### L [id number] ####[facility] ([facility]AKER)[address] [place] [address] Glucose [Mass/Vol] 137 mg/dL High 70-105 [facility] Comment on above: Performed By: #### L [id number] ####[facility] (BEAKER)[address] [place] [address] HCO3 (Bld) [Moles/Vol] 28.5 mmol/L High 23.0-28.0 [facility] Comment on above: Performed By: #### L [id number] ####[facility] (BEAKER)[address] [place] [address] Hematocrit (Bld) [Volume fraction] 35 % Low 38-51 [facility] Comment on above: Performed By: #### L [id number] ####[facility] (BEAKER)[address] [place] [address] Hemoglobin (Bld) [Mass/Vol] 11.9 g/dL Low 12.0-17.0 [facility] Comment on above: Performed By: #### L [id number] ####[facility] (BEAKER)[address] [address] POCT BASE EXCESS 2.0 mmol/L Normal -2.0-3.0 [facility] Comment on above: Performed By: #### L [id number] ####[facility] [address] POCT IONIZED CALCIUM 1.11 mmol/L Low 1.12-1.32 [facility] Comment on above: Performed By: #### L [id number] ####[facility] (BEAKER)[address] [address] POCT PCO2 52.5 mmHg High 41.0-51.0 [facility] Comment on above: Performed By: #### L [id number] ####[facility] (BEAKER)[address] [address] POCT PH 7.34 Normal 7.31-7.41 [facility] Comment on above: Performed By: #### L [id number] ####[facility] (BEAKER)[address] [address] POCT PO2 50 mmHg Low 80-105 [facility] Comment on above: Performed By: #### L [id number] ####[facility] (BEAKER)[address] [address] POCT SO2 82 % Low 95-98 [facility] Comment on above: Performed By: #### L [id number] ####[facility] (BEAKER)[address] [address] Potassium [Moles/Vol] 3.8 mmol/L Normal 3.5-4.9 [facility] Comment on above: Performed By: #### L [id number] ####[facility] (BEAKER)[address] [place] [address] Sodium [Moles/Vol] 143 mmol/L Normal 138.0-146.0 [facility] Comment on above: Performed By: #### L [id number] ####[facility] [place] [address] CO2 [Moles/Vol] 33.0 mmol/L High 21.0-29.0 [facility] Comment on above: Performed By: #### L [id number] ####[facility] [place] [address] Glucose [Mass/Vol] 137 mg/dL High 70-105 [facility] Comment on above: Performed By: #### L [id number] ####[facility] ([facility] [place] [address] HCO3 (Bld) [Moles/Vol] 31.4 mmol/L High 23.0-28.0 [facility] Comment on above: Performed By: #### L [id number] ####[facility] (BEAKER)[address] [place] [address] Hematocrit (Bld) [Volume fraction] 35 % Low 38-51 [facility] Comment on above: Performed By: #### L [id number] ####[facility] (BEAKER)[address] [place] [address] Hemoglobin (Bld) [Mass/Vol] 11.9 g/dL Low 12.0-17.0 [facility] Comment on above: Performed By: #### L [id number] ####[facility] (BEAKER)[address] [place] [address] POCT BASE EXCESS 5.0 mmol/L High -2.0-3.0 [facility] Comment on above: Performed By: #### L [id number] ####[facility] (BEAKER)[address] [place] [address] POCT IONIZED CALCIUM 1.04 mmol/L Low 1.12-1.32 [facility] Comment on above: Performed By: #### L [id number] ####[facility] (BEAKER)[address] [place] [address] POCT PCO2 55.1 mmHg High 41.0-51.0 [facility] Comment on above: Performed By: #### L [id number] ####[facility] (BEAKER)[address] [place] [address] POCT PH 7.36 Normal 7.31-7.41 [facility] Comment on above: Performed By: #### L [id number] ####[facility] (BEAKER)[address] [place] [address] POCT PO2 550 mmHg High 80-105 [facility] Comment on above: Performed By: #### L [id number] ####[facility] (BEAKER)[address] [place] [address] POCT SO2 100 % High 95-98 [facility] Comment on above: Performed By: #### L [id number] ####[facility] [place] [address] Potassium [Moles/Vol] 4.0 mmol/L Normal 3.5-4.9 [facility] Comment on above: Performed By: #### L [id number] ####[facility] (BEAKER)[address] [place] [address] Sodium [Moles/Vol] 142 mmol/L Normal 138.0-146.0 [facility] Comment on above: Performed By: #### L [id number] ####[facility] (BEAKER)[address] [place] [address] CO2 [Moles/Vol] 27.0 mmol/L Normal 21.0-29.0 [facility] Comment on above: Performed By: #### L [id number] ####[facility] (BEAKER)[address] [place] [address] Glucose [Mass/Vol] 137 mg/dL High 70-105 [facility] Comment on above: Performed By: #### L [id number] ####[facility] (BEAKER)[address] [place] [address] HCO3 (Bld) [Moles/Vol] 25.9 mmol/L Normal 23.0-28.0 [facility] Comment on above: Performed By: #### L [id number] ####[facility] (BEAKER)[address] [place] [address] Hematocrit (Bld) [Volume fraction] 39 % Normal 38-51 [facility] Comment on above: Performed By: #### L [id number] ####[facility] (BEAKER)[address] [place] [address] Hemoglobin (Bld) [Mass/Vol] 13.3 g/dL Normal 12.0-17.0 [facility] Comment on above: Performed By: #### L [id number] ####[facility] (BEAKER)[address] [place] [address] POCT BASE EXCESS 0.0 mmol/L Normal -2.0-3.0 [facility] Comment on above: Performed By: #### L [id number] ####[facility] (BEAKER)[address] [place] [address] POCT IONIZED CALCIUM 1.19 mmol/L Normal 1.12-1.32 [facility] Comment on above: Performed By: #### L [id number] ####[facility] (BEAKER)[address] [place] [address] POCT PCO2 44.4 mmHg Normal 41.0-51.0 [facility] Comment on above: Performed By: #### L [id number] ####[facility] (BEAKER)[address] [place] [address] POCT PH 7.37 Normal 7.31-7.41 [facility] Comment on above: Performed By: #### L [id number] ####[facility] (BEAKER)[address] [place] [address] POCT PO2 77 mmHg Low 80-105 [facility] Comment on above: Performed By: #### L [id number] ####[facility] (BEAKER)[address] [place] [address] POCT SO2 95 % Normal 95-98 [facility] Comment on above: Performed By: #### L [id number] ####[facility] (BEAKER)[address] [place] [address] Potassium [Moles/Vol] 3.8 mmol/L Normal 3.5-4.9 [facility] Comment on above: Performed By: #### L [id number] ####[facility] (BEAKER)[address] [place] [address] Sodium [Moles/Vol] 141 mmol/L Normal 138.0-146.0 [facility] Comment on above: Performed By: #### L [id number] ####[facility] (BEAKER)[address] [place] [address] CO2 [Moles/Vol] 26.0 mmol/L Normal 21.0-29.0 [facility] Comment on above: Performed By: #### L [id number] ####[facility] (BEAKER)[address] [place] [address] Glucose [Mass/Vol] 144 mg/dL High 70-105 [facility] Comment on above: Performed By: #### L [id number] ####[facility] (BEAKER)[address] [place] [address] HCO3 (Bld) [Moles/Vol] 24.7 mmol/L Normal 23.0-28.0 [facility] Comment on above: Performed By: #### L [id number] ####[facility] (BEAKER)[address] [place] [address] Hematocrit (Bld) [Volume fraction] 41 % Normal 38-51 [facility] Comment on above: Performed By: #### L [id number] ####[facility] (BEAKER)[address] [address] Hemoglobin (Bld) [Mass/Vol] 13.9 g/dL Normal 12.0-17.0 [facility] Comment on above: Performed By: #### L [id number] ####[facility] [address] POCT BASE EXCESS 0.0 mmol/L Normal -2.0-3.0 [facility] Comment on above: Performed By: #### L [id number] ####[facility] ([facility])[address] [address] POCT IONIZED CALCIUM 1.22 mmol/L Normal 1.12-1.32 [facility] Comment on above: Performed By: #### L [id number] ####[facility] ([facility] [address] POCT PCO2 40.9 mmHg Low 41.0-51.0 [facility] Comment on above: Performed By: #### L [id number] ####[facility] ([facility] [address] POCT PH 7.39 Normal 7.31-7.41 [facility] Comment on above: Performed By: #### L [id number] ####[facility] ([facility] [address] POCT PO2 85 mmHg Normal 80-105 [facility] Comment on above: Performed By: #### L [id number] ####[facility] (BEAKER)[address] [address] POCT SO2 96 % Normal 95-98 [facility] Comment on above: Performed By: #### L [id number] ####[facility] (BEAKER)[address] [address] Potassium [Moles/Vol] 3.8 mmol/L Normal 3.5-4.9 [facility] Comment on above: Performed By: #### L [id number] ####[facility] (BEAKER)[address] [place] [address] Sodium [Moles/Vol] 141 mmol/L Normal 138.0-146.0 [facility] Comment on above: Performed By: #### L [id number] ####[facility] (BEAKER)[address] [address] POTASSIUM, WHOLE BLOODon Potassium [Moles/Vol] 4.9 mmol/L Normal 3.5-5.1 [facility] Comment on above: Performed By: #### P OTASSIUM, WHOLE BLOOD ####[facility] [id number] [place] [address] [facility] Potassium [Moles/Vol] 4.1 mmol/L Normal 3.5-5.1 [facility] Comment on above: Performed By: #### P OTASSIUM, WHOLE BLOOD ####[facility] [id number] [place] [address] [facility] Potassium [Moles/Vol] 3.8 mmol/L Normal 3.5-5.1 [facility] Comment on above: Performed By: #### P OTASSIUM, WHOLE BLOOD ####[facility] [id number] [place] [address] [facility] PROTIME-INRon 05-27-2023 INR IN PPP BY COAGULATION ASSAY 1.23 High 0.90-1.10 [facility] Comment on above: Result Comment: [...] CHEST 1995;108:231S-246S. Performed By: #### L [id number] ####[facility] ([employer])[address] [place] [address] PROTHROMBIN TIME (PT) IN PPP BY COAGULATION ASSAY 15.6 Seconds High 12.3-14.8 [facility] Comment on above: Performed By: #### L [id number] ####[facility] ([employer])[address] [place] [address] INR IN PPP BY COAGULATION ASSAY 1.32 High 0.90-1.10 [facility] Comment on above: Order Comment: Pre-o p diagnosis:Mitral valve disease [I05.9] Result Comment: ACCC P RECOMMENDED INR FOR [...] CHEST 1995;108:231S-246S. Performed By: #### L [id number] ####[facility] (BEAKER)[address] [facility] [place] [address] PROTHROMBIN TIME (PT) IN PPP BY COAGULATION ASSAY 16.4 Seconds High 12.3-14.8 [facility] Comment on above: Order Comment: Pre-o p diagnosis:Mitral valve disease [I05.9] Performed By: #### L [id number] ####[facility] (BEAKER)[address] [place] [address] SODIUM, WHOLE BLOODon 2022 SODIUM, WHOLE BLOOD 138 Normal 136-145 [facility] Comment on above: Performed By: #### S ODIUM, WHOLE BLOOD ####[facility] [id number] [place] [address] [facility] SODIUM, WHOLE BLOOD 138 Normal 136-145 [facility] Comment on above: Performed By: #### S ODIUM, WHOLE BLOOD ####[facility] [id number] [place] [address] [facility] SODIUM, WHOLE BLOOD 137 Normal 136-145 [facility] Comment on above: Performed By: #### S ODIUM, WHOLE BLOOD ####[facility] [id number] [place] [address] [facility] VENOUS BLOOD GAS WITH IONIZE D CALCIUMon 05-27-2023 Base excess Calc (BldV) [Moles/Vol] -1.8000 mmol/L Normal [facility] Comment on above: Performed By: #### L [id number] ####[facility] [id number] [place] [address] [facility] CALCIUM IONIZED (MMOL/L) IN BLOOD 1.18 mmol/L Normal 1.15-1.33 [facility] Comment on above: Performed By: #### L [id number] ####[facility] [id number] [place] [address] [facility] CO2 (BldV) [Partial pressure] 48 mm[Hg] Normal 40-50 [facility] Comment on above: Performed By: #### L [id number] ####[facility] [id number] [place] [address] [facility] HCO3 (Bld) [Moles/Vol] 24.7 mmol/L Normal [facility] Comment on above: Performed By: #### L [id number] ####[facility] [id number] [place] [address] [facility] Oxygen (BldV) [Partial pressure] 39 mm[Hg] Normal 35-45 [facility] Comment on above: Performed By: #### L [id number] ####[facility] [id number] [place] [address] [facility] OXYGEN SATURATION (%) IN VENOUS BLOOD 62.9 % Low 65.0-75.0 [facility] Comment on above: Performed By: #### L [id number] ####[facility] [id number] [place] [address] [facility] PH OF VENOUS BLOOD 7.32 Normal 7.31-7.41 [facility] Comment on above: Performed By: #### L [id number] ####[facility] [id number] [place] [address] [facility] ANESon 05-26-2023 ANES Normal [facility] Letter (Out)on 05-26-2023 Letter (Out) Normal [facility] Documentationon 05-22-2023 Documentation Normal [facility] APTTon 05-14-2023 ACTIVATED PARTIAL THROMBOPLASTIN TIME IN PPP BY COAGULATION ASSAY 27.1 Seconds Normal 25.0-35.0 [facility] Comment on above: Result Comment: Clin ical significance of the APTT is questionable in the presence of heparin. Performed By: #### L [id number] ####[facility] (BEAKER)[address] [place] [address] BASIC METABOLIC PANELon 05-05 Anion gap [Moles/Vol] 12 mmol/L Normal 7-20 [facility] Comment on above: Performed By: #### L [id number] ####[facility] (BEAKER)[address] [place] [address] Calcium [Mass/Vol] 9.2 mg/dL Normal 8.6-10.3 [facility] Comment on above: Performed By: #### L [id number] ####[facility] ([facility])[address] [place] [address] Chloride [Moles/Vol] 105 mmol/L Normal 98-107 [facility] Comment on above: Performed By: #### L [id number] ####[facility] ([facility])[address] [place] [address] CO2 [Moles/Vol] 25 mmol/L Normal 21-31 [facility] Comment on above: Performed By: #### L [id number] ####[facility] ([facility])[address] [facility] [facility] [facility] [place] [address] Creatinine [Mass/Vol] 1.11 mg/dL Normal 0.60-1.30 [facility] Comment on above: Performed By: #### L [id number] ####[facility] ([facility])[address] [place] [address] GLOMERULAR FILTRATION RATE ML/MIN/1.73 SQ M.PREDICTED 58.7 mL/min/1.73m*2 Low >60.0 [facility] Comment on above: Result Comment: The [facility]???s estimated glomerular filtration rate (eGFR) [...] of individuals. Performed By: #### L [id number] ####[facility] ([facility])[address] [place] [address] Glucose [Mass/Vol] 172 mg/dL High 70-100 [facility] Comment on above: Performed By: #### L [id number] ####[facility] ([facility])[address] [place] [address] Potassium [Moles/Vol] 4.0 mmol/L Normal 3.5-5.1 [facility] Comment on above: Performed By: #### L [id number] ####[facility] ([facility])[address] [place] [address] Sodium [Moles/Vol] 138 mmol/L Normal 136-145 [facility] Comment on above: Performed By: #### L [id number] ####[facility] ([facility])[address] [place] [address] Urea nitrogen [Mass/Vol] 16 mg/dL Normal 7-25 [facility] Comment on above: Performed By: #### L [id number] ####[facility] ([facility])[address] [place] [address] UREA NITROGEN/CREATININE (MASS RATIO) IN SER/PLAS 14.4 Normal [facility] Comment on above: Performed By: #### L [id number] ####[facility] ([facility])[address] [place] [address] CBC WITH AUTO DIFFERENTIALon 05-14-2023 Basophils (Bld) [#/Vol] 0.04 10*3/uL Normal 0.00-0.20 [facility] Comment on above: Performed By: #### L [id number] ####[facility] ([facility])[address] [place] [address] Basophils/100 WBC (Bld) 0.7 % Normal 0.0-1.0 [facility] Comment on above: Performed By: #### L [id number] ####[facility] ([facility])[address] [place] [address] Eosinophils (Bld) [#/Vol] 0.24 10*3/uL Normal 0.00-0.50 [facility] Comment on above: Performed By: #### L [id number] ####[facility] [place] [address] Eosinophils/100 WBC (Bld) 4.0 % Normal 0.0-6.0 [facility] Comment on above: Performed By: #### L [id number] ####[facility] ([facility])[address] [place] [address] Erythrocyte distribution width (RBC) [Ratio] 14.1 % Normal 11.5-15.0 [facility] Comment on above: Performed By: #### L [id number] ####[facility] ([facility])[address] [place] [address] ERYTHROCYTE MEAN CORPUSCULAR HEMOGLOBIN CONCENTRATION (G/DL) BY AUTOMATED 33.0 g/dL Normal 32.0-35.0 [facility] Comment on above: Performed By: #### L [id number] ####[facility] ([facility])[address] [place] [address] Hematocrit (Bld) [Volume fraction] 43.9 % Normal 36.0-55.0 [facility] Comment on above: Performed By: #### L [id number] ####[facility] ([facility])[address] [place] [address] Hemoglobin (Bld) [Mass/Vol] 14.5 g/dL Normal 12.0-17.0 [facility] Comment on above: Performed By: #### L [id number] ####[facility] [place] [address] Immature granulocytes (Bld) [#/Vol] 0.04 10*3/uL Normal 0.00-0.20 [facility] Comment on above: Performed By: #### L [id number] ####[facility] ([facility])[address] [place] [address] Immature granulocytes/100 WBC (Bld) 0.7 % Normal 0.0-1.0 [facility] Comment on above: Performed By: #### L [id number] ####[facility] (BEAKER)[address] [place] [address] Lymphocytes (Bld) [#/Vol] 2.24 10*3/uL Normal 1.20-4.00 [facility] Comment on above: Performed By: #### L [id number] ####[facility] (BEAKER)[address] [place] [address] Lymphocytes/100 WBC (Bld) 37.3 % Normal 20.0-45.0 [facility] Comment on above: Performed By: #### L [id number] ####[facility] (BEAKER)[address] [place] [address] MCH (RBC) [Entitic mass] 27.1 pg Normal 27.0-33.0 [facility] Comment on above: Performed By: #### L [id number] ####[facility] (BEAKER)[address] [place] [address] MCV (RBC) [Entitic vol] 82.1 fL Normal 82.0-98.0 [facility] Comment on above: Performed By: #### L [id number] ####[facility] (BEAKER)[address] [place] [address] Monocytes (Bld) [#/Vol] 0.47 10*3/uL Normal 0.10-1.00 [facility] Comment on above: Performed By: #### L [id number] ####[facility] (BEAKER)[address] [place] [address] Monocytes/100 WBC (Bld) 7.8 % Normal 5.0-12.0 [facility] Comment on above: Performed By: #### L [id number] ####[facility] (BEAKER)[address] [place] [address] Neutrophils (Bld) [#/Vol] 2.98 10*3/uL Normal 1.60-7.60 [facility] Comment on above: Performed By: #### L [id number] ####[facility] (BEAKER)[address] [place] [address] Neutrophils/100 WBC (Bld) 49.5 % Normal 40.0-72.0 [facility] Comment on above: Performed By: #### L [id number] ####[facility] ([facility]AKER)[address] [place] [address] NRBC (PER 100 WBCS) BY AUTOMATED COUNT 0.0 % Normal 0 [facility] Comment on above: Performed By: #### L [id number] ####[facility] ([facility])[address] [place] [address] PLATELETS (10*3/UL) IN BLOOD AUTOMATED COUNT 220 10*3/uL Normal 150-400 [facility] Comment on above: Performed By: #### L [id number] ####[facility] ([facility])[address] [place] [address] RBC (Bld) [#/Vol] 5.35 10*6/uL Normal 3.80-5.70 [facility] Comment on above: Performed By: #### L [id number] ####[facility] ([facility])[address] [place] [address] WBC (Bld) [#/Vol] 6.01 10*3/uL Normal 4.00-10.60 [facility] Comment on above: Performed By: #### L [id number] ####[facility] [facility])[address] [place] [address] CT CHEST WO IV CONTRASTon CT CHEST WO IV CONTRAST Normal [facility] ETHANOLon 05-14-2023 ETHANOL (MG/DL) IN SER/PLAS <10 Normal [facility] Comment on above: Result Comment: No E thanol detected Performed By: #### L [id number] ####[facility] ([facility] [place])[address] [place] [address] ETHANOL CALCULATED (%) Normal [facility] Comment on above: Performed By: #### L [id number] ####[facility] ([facility] [place])[address] [place] [address] Follow-Upon 05-14-2023 Follow-Up Normal [facility] HEMOGLOBIN A1Con 05-14-2023 Glucose [Mass/Vol] 160 mg/dL Normal [facility] Comment on above: Performed By: #### L [id number] ####[facility] (BEAKER)[address] [place] [address] HbA1c (Bld) [Mass fraction] 7.2 % High 4.0-6.0 [facility] Comment on above: Performed By: #### L [id number] ####[facility] (BEAKER)[address] [place] [address] HPon 05-14-2023 HP Normal [facility] Labon 05-14-2023 Lab Normal [facility] PROTIME-INRon 05-14-2023 INR IN PPP BY COAGULATION ASSAY 0.91 Normal 0.90-1.10 [facility] Comment on above: Result Comment: [...] CHEST 1995;[id number]. Performed By: #### L [id number] ####[facility] (BEAKER)[address] [place] [address] PROTHROMBIN TIME (PT) IN PPP BY COAGULATION ASSAY 12.2 Seconds Low 12.3-14.8 [facility] Comment on above: Performed By: #### L [id number] ####[facility] (BEAKER)[address] [place] [address] TOXICOLOGY PANEL URINEon AMPHETAMINE+METHAMPH ETAMINE SCREEN (PRESENCE) IN URINE Negative Normal Negative [facility] Comment on above: Performed By: #### L [id number] ####[facility] ([facility])[address] [place] [address] BARBITURATES PRESENCE IN URINE BY SCREEN METHOD Negative Normal Negative [facility] Comment on above: Performed By: #### L [id number] ####[facility] ([facility])[address] [place] [address] Benzodiazepines Ql (U) Negative Normal Negative [facility] Comment on above: Performed By: #### L [id number] ####[facility] ([facility])[address] [place] [address] CANNABINOID (PRESENCE) IN URINE BY SCREEN METHOD Negative Normal Negative [facility] Comment on above: Performed By: #### L [id number] ####[facility] ([facility])[address] [place] [address] Cocaine Ql (U) Negative Normal Negative [facility] Comment on above: Performed By: #### L [id number] ####[facility] ([facility])[address] [place] [address] METHADONE (PRESENCE) IN URINE BY SCREEN METHOD Negative Normal Negative [facility] Comment on above: Performed By: #### L [id number] ####[facility] ([facility])[address] [place] [address] OPIATES (PRESENCE) IN URINE BY SCREEN METHOD Negative Normal Negative [facility] Comment on above: Performed By: #### L [id number] ####[facility] ([facility])[address] [place] [address] PHENCYCLIDINE PRESENCE IN URINE BY SCREEN METHOD Negative Normal Negative [facility] Comment on above: Performed By: #### L [id number] ####[facility] ([facility])[address] [place] [address] Propoxyphene Screen Ql (U) Negative Normal Negative [facility] Comment on above: Performed By: #### L [id number] ####[facility] (BEAKER)[address] [place] [address] TRICYCLIC ANTIDEPRESSANTS (PRESENCE) IN URINE Negative Normal Negative [facility] Comment on above: Performed By: #### L [id number] ####[facility] (BEAKER)[address] [place] [address] TYPE AND SCREENon 05-14-2023 AB SCREEN Negative Normal [facility] Comment on above: Performed By: #### L [id number] ####[facility], ABO group Nom (Bld) A Normal [facility] Comment on above: Performed By: #### L [id number] ####[facility], RH TYPE IN BLOOD Positive Normal [facility] Comment on above: Performed By: #### L [id number] ####[facility], URINALYSISon 05-14-2023 BILIRUBIN, TOTAL PRESENCE IN URINE Negative Normal Negative [facility] Comment on above: Order Comment: Micro scopics not performed on urines with negative chemical reactions unless requested on original order. Performed By: #### L [id number] ####[facility] ([facility] [place])[address] [facility] [place] [address] Clarity (U) Clear Normal Clear [facility] Comment on above: Order Comment: Micro scopics not performed on urines with negative chemical reactions unless requested on original order. Performed By: #### L [id number] ####[facility] ([facility] [place])[address] [place] [address] Color (U) Straw Abnormal Yellow [facility] Comment on above: Order Comment: Micro scopics not performed on urines with negative chemical reactions unless requested on original order. Performed By: #### L [id number] ####[facility] [place] [address] Glucose (U) [Mass/Vol] Negative Normal Negative [facility] Comment on above: Order Comment: Micro scopics not performed on urines with negative chemical reactions unless requested on original order. Performed By: #### L [id number] ####[facility] (BEAKER)[address] [place] [address] HEMOGLOBIN PRESENCE IN URINE Negative Normal Negative [facility] Comment on above: Order Comment: Micro scopics not performed on urines with negative chemical reactions unless requested on original order. Performed By: #### L [id number] ####[facility] (BEAKER)[address] [place] [address] Ketones Ql (U) Negative Normal Negative [facility] Comment on above: Order Comment: Micro scopics not performed on urines with negative chemical reactions unless requested on original order. Performed By: #### L [id number] ####[facility] ([facility])[address] [place] [address] LEUKOCYTE ESTERASE PRESENCE IN URINE BY TEST STRIP Negative Normal Negative [facility] Comment on above: Order Comment: Micro scopics not performed on urines with negative chemical reactions unless requested on original order. Performed By: #### L [id number] ####[facility] (BEAKER)[address] [place] [address] NITRITE PRESENCE IN URINE Negative Normal Negative [facility] Comment on above: Order Comment: Micro scopics not performed on urines with negative chemical reactions unless requested on original order. Performed By: #### L [id number] ####[facility] (BEAKER)[address] [place] [address] pH (U) 5.0 [pH] Normal 5.0-8.0 [facility] Comment on above: Order Comment: Micro scopics not performed on urines with negative chemical reactions unless requested on original order. Performed By: #### L [id number] ####[facility] (BEAKER)[address] [place] [address] Protein (U) [Mass/Vol] Negative Normal Negative [facility] Comment on above: Order Comment: Micro scopics not performed on urines with negative chemical reactions unless requested on original order. Performed By: #### L [id number] ####[facility] ([facility]AKER)[address] [place] [address] Specific gravity (U) [Rel density] 1.013 Low 1.015-1.020 [facility] Comment on above: Order Comment: Micro scopics not performed on urines with negative chemical reactions unless requested on original order. Performed By: #### L [id number] ####[facility] (BEAKER)[address] [place] [place] [address] 36on 03-11-2023 36 Pt going to er [facility] ANESon 02-12-2023 ANES [facility] HPon 02-12-2023 HP [facility] NURSNOTEon 02-12-2023 NURSNOTE RN educated pt on d/ c instructions. RN encouraged pt to voice any questions or concerns. Pt verbalizes no questions or concerns at this time. Pt was wheeled off of unit with all of belongings. [facility] CBC AUTO DIFFon 02-06-2023 BASO # 0.0 103/ul Normal 0.0-0.1 [facility] Comment on above: Performed By: #### C BC #### [facility] [address] [place] [address] Dr. John Bertrand Basophils/100 WBC (Bld) 0.4 % Normal 0.2-2.0 [facility] Comment on above: Performed By: #### C BC #### [facility] [address] [place] [address] Dr. John Bertrand EO # 0.2 103/ul Normal 0.0-0.7 [facility] Comment on above: Performed By: #### C BC #### [facility] [address] [place] [address] Dr. John Bertrand Eosinophils/100 WBC (Bld) 3.1 % Normal 0.9-7.0 [facility] Comment on above: Performed By: #### C BC #### [facility] [address] [place] [address] Dr. John Bertrand Erythrocyte distribution width (RBC) [Ratio] 13.9 % Normal 11.0-15.0 [facility] Comment on above: Performed By: #### C BC #### [facility] [address] [place] [address] Dr. John Bertrand Hematocrit (Bld) [Volume fraction] 43.8 % Normal 42.0-54.0 [facility] Comment on above: Performed By: #### C BC #### [facility] [address] [place] [address] Dr. John Bertrand Hemoglobin (Bld) [Mass/Vol] 14.4 g/dL Normal 14.0-18.0 [facility] Comment on above: Performed By: #### C BC #### [facility] [address] [place] [address] Dr. John Bertrand IG # 0.01 10e3/ul Normal 0.00-0.03 [facility] Comment on above: Performed By: #### C BC #### [facility] [address] [place] [address] Dr. John Bertrand IG % 0.2 % Normal 0.0-0.5 [facility] Comment on above: Performed By: #### C BC #### [facility] [address] [place] [address] Dr. John Bertrand LYMPH # 2.3 103/ul Normal 1.2-3.8 [facility] Comment on above: Performed By: #### C BC #### [facility] [address] [place] [address] Dr. John Bertrand Lymphocytes/100 WBC (Bld) 41.1 % Normal 20.5-60.0 [facility] Comment on above: Performed By: #### C BC #### [facility] [address] [place] [address] Dr. John Bertrand MANUAL DIFF REQ NO Normal [facility] Comment on above: Performed By: #### C BC #### [facility] [address] [place] [address] Dr. John Bertrand MCH (RBC) [Entitic mass] 27.6 pg Normal 25.9-34.0 [facility] Comment on above: Performed By: #### C BC #### [facility] [address] [place] [address] Dr. John Bertrand MCHC (RBC) [Mass/Vol] 32.9 g/dL Normal 29.9-35.2 [facility] Comment on above: Performed By: #### C BC #### [facility] [address] [address] [address] John Bertrand MCV (RBC) [Entitic vol] 83.9 fL Normal 80.0-94.0 [facility] Comment on above: Performed By: #### C BC #### [facility] [address] [address] [address] John Bertrand MONO # 0.5 103/ul Normal 0.3-0.8 [facility] Comment on above: Performed By: #### C BC #### [facility] [address] [place] [address] Dr. John Bertrand Monocytes/100 WBC (Bld) 9.0 % Normal 1.7-12.0 [facility] Comment on above: Performed By: #### C BC #### [facility] [address] [place] [address] Dr. John Bertrand NEUT # 2.5 103/ul Normal 1.4-6.5 [facility] Comment on above: Performed By: #### C BC #### [facility] [address] [place] [address] Dr. John Bertrand Neutrophils/100 WBC (Bld) 46.2 % Normal 43.0-75.0 [facility] Comment on above: Performed By: #### C BC #### [facility] [address] [place] [address] Dr. John Bertrand Platelet mean volume (Bld) [Entitic vol] 9.6 fL Normal 9.5-13.5 [facility] Comment on above: Performed By: #### C BC #### [facility] [address] [place] [address] Dr. John Bertrand PLT 223 103/ul Normal 150-450 [facility] Comment on above: Performed By: #### C BC #### [facility] [address] [place] [address] Dr. John Bertrand RBC 5.22 106/ul Normal 4.70-6.10 [facility] Comment on above: Performed By: #### C BC #### [facility] [address] [place] [address] Dr. John Bertrand WBC 5.5 103/ul Normal 4.0-11.0 [facility] Comment on above: Performed By: #### C BC #### [facility] [address] [place] [address] Dr. John Bertrand PROF CHEM 8 (BAS METB)on Anion gap [Moles/Vol] 9.3 mmol/L Normal [facility] Comment on above: Performed By: #### B MP #### [facility] [address] [place] [address] Dr. John Bertrand Calcium [Mass/Vol] 8.7 mg/dL Normal 8.5-10.1 [facility] Comment on above: Performed By: #### B MP #### [facility] [address] [place] [address] Dr. John Bertrand Chloride [Moles/Vol] 105 mmol/L Normal 98-107 [facility] Comment on above: Performed By: #### B MP #### [facility] [address] [place] [address] Dr. John Bertrand CO2 [Moles/Vol] 27.6 mmol/L Normal 21.0-32.0 [facility] Comment on above: Performed By: #### B MP #### [facility] [address] [place] [address] Dr. John Bertrand Creatinine [Mass/Vol] 1.28 mg/dL Normal 0.70-1.30 [facility] Comment on above: Performed By: #### B MP #### [facility] [address] [place] [address] Dr. John Bertrand EGFR-AF TURKS AND CAIC[place] ISLANDER >60 Normal >=60 [facility] Comment on above: Performed By: #### B MP #### [facility] [address] [place] [address] Dr. John Bertrand EGFR-NON AF TURKS AND [place] ISLANDER 58 mL/min/1.73m2 Critically low >=60 [facility] Comment on above: Performed By: #### B MP #### [facility] [address] [place] [address] Dr. John Bertrand Glucose [Mass/Vol] 137 mg/dL Critically high 74-106 [facility] Comment on above: Performed By: #### B MP #### [facility] [address] [place] [address] Dr. John Bertrand Potassium [Moles/Vol] 3.9 mmol/L Normal 3.5-5.1 [facility] Comment on above: Performed By: #### B MP #### [facility] [address] [place] [address] Dr. John Bertrand Sodium [Moles/Vol] 138 mmol/L Normal 136-145 [facility] Comment on above: Performed By: #### B MP #### [facility] [address] [place] [address] Dr. John Bertrand Urea nitrogen [Mass/Vol] 16.0 mg/dL Normal 7.0-18.0 [facility] Comment on above: Performed By: #### B MP #### [facility] [address] [place] [address] Dr. John Bertrand Urea nitrogen/Creatinine [Mass ratio] 12.5 mg/mg Normal [facility] Comment on above: Performed By: #### B MP #### [facility] [address] [place] [address] Dr. John Bertrand CBC AUTO DIFFon 01-14-2023 BASO # 0.0 103/ul Normal 0.0-0.1 [facility] Comment on above: Performed By: #### C BC #### [facility] [address] [place] [address] Dr. John Bertrand Basophils/100 WBC (Bld) 0.6 % Normal 0.2-2.0 [facility] Comment on above: Performed By: #### C BC #### [facility] [address] [place] [address] Dr. John Bertrand EO # 0.1 103/ul Normal 0.0-0.7 [facility] Comment on above: Performed By: #### C BC #### [facility] [address] [place] [address] Dr. John Bertrand Eosinophils/100 WBC (Bld) 2.7 % Normal 0.9-7.0 [facility] Comment on above: Performed By: #### C BC #### [facility] [address] [place] [address] Dr. John Bertrand Erythrocyte distribution width (RBC) [Ratio] 13.9 % Normal 11.0-15.0 [facility] Comment on above: Performed By: #### C BC #### [facility] [address] [place] [address] Dr. John Bertrand Hematocrit (Bld) [Volume fraction] 44.8 % Normal 42.0-54.0 [facility] Comment on above: Performed By: #### C BC #### [facility] [address] [place] [address] Dr. John Bertrand Hemoglobin (Bld) [Mass/Vol] 14.8 g/dL Normal 14.0-18.0 [facility] Comment on above: Performed By: #### C BC #### [facility] [address] [place] [address] Dr. John Bertrand IG # 0.01 10e3/ul Normal 0.00-0.03 [facility] Comment on above: Performed By: #### C BC #### [facility] [address] [place] [address] Dr. John Bertrand IG % 0.2 % Normal 0.0-0.5 [facility] Comment on above: Performed By: #### C BC #### [facility] [address] [place] [address] Dr. John Bertrand LYMPH # 1.9 103/ul Normal 1.2-3.8 [facility] Comment on above: Performed By: #### C BC #### [facility] [address] [place] [address] Dr. John Bertrand Lymphocytes/100 WBC (Bld) 37.0 % Normal 20.5-60.0 [facility] Comment on above: Performed By: #### C BC #### [facility] [address] [place] [address] Dr. John Bertrand MANUAL DIFF REQ NO Normal [facility] Comment on above: Performed By: #### C BC #### [facility] [address] [place] [address] Dr. John Bertrand MCH (RBC) [Entitic mass] 27.2 pg Normal 25.9-34.0 [facility] Comment on above: Performed By: #### C BC #### [facility] [address] [place] [address] Dr. John Bertrand MCHC (RBC) [Mass/Vol] 33.0 g/dL Normal 29.9-35.2 [facility] Comment on above: Performed By: #### C BC #### [facility] [address] [place] [address] Dr. John Bertrand MCV (RBC) [Entitic vol] 82.4 fL Normal 80.0-94.0 [facility] Comment on above: Performed By: #### C BC #### [facility] [address] [place] [address] Dr. John Bertrand MONO # 0.5 103/ul Normal 0.3-0.8 [facility] Comment on above: Performed By: #### C BC #### [facility] [address] [place] [address] Dr. John Bertrand Monocytes/100 WBC (Bld) 8.8 % Normal 1.7-12.0 [facility] Comment on above: Performed By: #### C BC #### [facility] [address] [place] [address] Dr. John Bertrand NEUT # 2.7 103/ul Normal 1.4-6.5 [facility] Comment on above: Performed By: #### C BC #### [facility] [address] [place] [address] Dr. John Bertrand Neutrophils/100 WBC (Bld) 50.7 % Normal 43.0-75.0 [facility] Comment on above: Performed By: #### C BC #### [facility] [address] [place], [place] [address] Dr. John Bertrand Platelet mean volume (Bld) [Entitic vol] 9.5 fL Normal 9.5-13.5 [facility] Comment on above: Performed By: #### C BC #### [facility] [address] [place] [address] [address] John Bertrand PLT 235 103/ul Normal 150-450 [facility] Comment on above: Performed By: #### C BC #### [facility] [address] [address] [address] John Bertrand RBC 5.44 106/ul Normal 4.70-6.10 [facility] Comment on above: Performed By: #### C BC #### [facility] [address] [address] [address] John Bertrand WBC 5.3 103/ul Normal 4.0-11.0 [facility] Comment on above: Performed By: #### C BC #### [facility] [address] [place], [place] [address] Dr. John Bertrand FREE THYROXINE INDEX T7on FTI 2.16 Normal 1.30-4.50 [facility] Comment on above: Performed By: #### T SH, CMP, T7, LIPID ####[facility] [address] [place], [place] [address]XtDr. John Bertrand T3U 36.0 % Normal 33.0-40.0 [facility] Comment on above: Performed By: #### T SH, CMP, T7, LIPID ####[facility] [address] [place], [place] [address]JhDr. John Bertrand T4 [Mass/Vol] 6.00 ug/dL Normal 4.50-12.10 [facility] Comment on above: Performed By: #### T SH, CMP, T7, LIPID ####[facility] [address] [place], [place] [address]DiDr. John Bertrand GLYCOHEMOGLOBIN A1Con 2022 ADA RECOMMENDATION SEE BELOW Normal [facility] Comment on above: Result Comment: ADA RECOMMENDED LIMIT 4.0 - 6.0 ADA THERAPEUTIC TARGET < 7.0 ACTION SUGGESTED > 7.0 Performed By: #### A 1C #### [facility] [address] [address] [address] John Bertrand Glucose [Mass/Vol] 154 mg/dL Normal [facility] Comment on above: Performed By: #### A 1C #### [facility] [address] [address] [address] John Bertrand HbA1c (Bld) [Mass fraction] 7.0 % Critically high 4.5-6.2 [facility] Comment on above: Performed By: #### A 1C #### [facility] [address] [address] [address] John Bertrand HPon 01-14-2023 HP Normal [facility] LIPID PROFILEon 01-14-2023 CHOL-HDL RATIO NORM SEE BELOW Normal [facility] Comment on above: Result Comment: 3.3 - 4.4 LOW RISK 4.4 - 7.1 AVERAGE RISK 7.1 - 11.0 MODERATE RISK >11.0 HIGH RISK Performed By: #### T SH, CMP, T7, LIPID ####[facility] [address] [place] [address]DrAgnes Bertrand Cholesterol [Mass/Vol] 151 mg/dL Normal <=200 [facility] Comment on above: Performed By: #### T SH, CMP, T7, LIPID ####[facility] [address] [place] [id number] Bertrand Cholesterol in HDL [Mass/Vol] 36 mg/dL Critically low 40-60 [facility] Comment on above: Performed By: #### T SH, CMP, T7, LIPID ####[facility] [address] [place] [id number] Bertrand Cholesterol in LDL [Mass/Vol] 101.4 mg/dL Normal [facility] Comment on above: Performed By: #### T SH, CMP, T7, LIPID ####[facility] [address] [place] [id number]. John Bertrand Cholesterol.total/Ch olesterol in HDL [Mass ratio] 4.2 {ratio} Normal [facility] Comment on above: Performed By: #### T SH, CMP, T7, LIPID ####[facility] [facility] [address] [place] [address]Dr. John Bertrand HDL NORMAL > or = 60 mg/dl - LO W CARDIOVASCULAR RISK <40 mg/dl - HIGH CARDIOVASCULAR RISK Normal [facility] Comment on above: Performed By: #### T SH, CMP, T7, LIPID ####[facility] [address] [place] [address]Dr. John Bertrand LDL CALC NORMAL SEE BELOW Normal [facility] Comment on above: Result Comment: <100 mg/dl OPTIMAL 100 - 129 mg/dl NEAR OR ABOVE OPTIMAL 130 - 159 mg/dl BORDERLINE HIGH 160 - 189 mg/dl HIGH >190 mg/dl VERY HIGH Performed By: #### T SH, CMP, T7, LIPID ####[facility] [address] [place] [address]Dr. John Bertrand Triglyceride [Mass/Vol] 68 mg/dL Normal <=150 [facility] Comment on above: Performed By: #### T SH, CMP, T7, LIPID ####[facility] [address] [place] [address]Dr. John Bertrand VLDL CALC 13.6 mg/dL Normal [facility] Comment on above: Performed By: #### T SH, CMP, T7, LIPID ####[facility] [address] [place] [address]Dr. John Bertrand PROF 14(COMP METB)on 023 Albumin [Mass/Vol] 3.8 g/dL Normal 3.4-5.0 [facility] Comment on above: Performed By: #### T SH, CMP, T7, LIPID ####[facility] [address] [place] [address]Dr. John Bertrand Albumin/Globulin [Mass ratio] 1.1 {ratio} Normal [facility] Comment on above: Performed By: #### T SH, CMP, T7, LIPID ####[facility] [address] [place] [address]Dr. John Bertrand ALP [Catalytic activity/Vol] 71 U/L Normal 46-116 [facility] Comment on above: Performed By: #### T SH, CMP, T7, LIPID ####[facility] [address] [place] [address]Dr. John Bertrand ALT [Catalytic activity/Vol] 80 U/L Critically high 16-63 [facility] Comment on above: Performed By: #### T SH, CMP, T7, LIPID ####[facility] [address] [place] [address]Dr. John Bertrand Anion gap [Moles/Vol] 11.2 mmol/L Normal [facility] Comment on above: Performed By: #### T SH, CMP, T7, LIPID ####[facility] [address] [place] [address]Dr. John Bertrand AST [Catalytic activity/Vol] 39 U/L Critically high 15-37 [facility] Comment on above: Performed By: #### T SH, CMP, T7, LIPID ####[facility] [address] [place] [address]Dr. John Bertrand Bilirubin [Mass/Vol] 0.4 mg/dL Normal 0.2-1.0 [facility] Comment on above: Performed By: #### T SH, CMP, T7, LIPID ####[facility] [address] [place] [address]Dr. John Bertrand Calcium [Mass/Vol] 9.2 mg/dL Normal 8.5-10.1 [facility] Comment on above: Performed By: #### T SH, CMP, T7, LIPID ####[facility] [address] [place] [address]Dr. John Bertrand Chloride [Moles/Vol] 107 mmol/L Normal 98-107 [facility] Comment on above: Performed By: #### T SH, CMP, T7, LIPID ####[facility] [address] [place] [address]Dr. John Bertrand CO2 [Moles/Vol] 26.8 mmol/L Normal 21.0-32.0 [facility] Comment on above: Performed By: #### T SH, CMP, T7, LIPID ####[facility] [address] [place] [address]Dr. John Bertrand Creatinine [Mass/Vol] 1.21 mg/dL Normal 0.70-1.30 [facility] Comment on above: Performed By: #### T SH, CMP, T7, LIPID ####[facility] [address] [place], [place] [address]Dr. John Bertrand EGFR-AF TURKS AND CAICOS ISLANDER >60 Normal >=60 [facility] Comment on above: Performed By: #### T SH, CMP, T7, LIPID ####[facility] [address] [place], [place] [address]Dr. John Bertrand EGFR-NON AF TURKS AND CAICOS ISLANDER >60 Normal >=60 [facility] Comment on above: Performed By: #### T SH, CMP, T7, LIPID ####[facility] [address] [place], [place] [address]Dr. John Jerzy Globulin (S) [Mass/Vol] 3.5 g/dL Normal [facility] Comment on above: Performed By: #### T SH, CMP, T7, LIPID ####[facility] [address] [place], [place] [address]Dr. John Bertrand Glucose [Mass/Vol] 140 mg/dL Critically high 74-106 [facility] Comment on above: Performed By: #### T SH, CMP, T7, LIPID ####[facility] [address] [place], [place] [address]Dr. John Bertrand Potassium [Moles/Vol] 4.0 mmol/L Normal 3.5-5.1 [facility] Comment on above: Performed By: #### T SH, CMP, T7, LIPID ####[facility] [address] [place] [address]Dr. John Bertrand Protein [Mass/Vol] 7.3 g/dL Normal 6.4-8.2 [facility] Comment on above: Performed By: #### T SH, CMP, T7, LIPID ####[facility] [address] [place], [place] [address]Op. John Bertrand Sodium [Moles/Vol] 141 mmol/L Normal 136-145 [facility] Comment on above: Performed By: #### T SH, CMP, T7, LIPID ####[facility] [address] [place], [place] [address]Ad. John Bertrand Urea nitrogen [Mass/Vol] 11.0 mg/dL Normal 7.0-18.0 [facility] Comment on above: Performed By: #### T SH, CMP, T7, LIPID ####[facility] [address] [place] [address]Dr. John Bertrand Urea nitrogen/Creatinine [Mass ratio] 9.1 mg/mg Normal [facility] Comment on above: Performed By: #### T SH, CMP, T7, LIPID ####[facility] [address] [place], [place] [address]On. John Bertrand TSHon 01-14-2023 TSH 1.532 uIU/mL Normal 0.358-3.740 [facility] Comment on above: Performed By: #### T SH, CMP, T7, LIPID ####[facility] [address] [place] [address]Dr. John Bertrand Physician Referralon 023 Physician Referral [id number] Normal [facility] CT ABD/PELV W CONon 12-17-19 23 [...] by: GLORIA STRANGE Date: 2022-12-16 09:20 Normal [facility] ECHOCARDIO M/2D COMPLETEon 0 12-16-2022 ECHOCARDIO M/2D COMPLETE Patient: FLYNN ARNETT Exam Date: 12/16/2022 : 1965 Gender:M Ordering : DR LAUREN VELASQUEZ . Admission #: [id number] Family : Order #: [id number] CLICK HERE TO VIEW EXAM ECHOCARDIOGRAM REPORT [...] 69.32 ml, 69.32 ml Dictated by: Adonis Webster M.D. on 12/16/2022 at 12:06 Approved by: Adonis Webster M.D. on 12/16/2022 at 12:11 Normal [facility] Covid-19 PCR (CVDTBH)on SARS-CoV-2 (COVID-19) RNA THALIA+probe Ql (Unsp spec) Not detected Normal NOT DETECTED [facility] Comment on above: Result Comment: This test is not yet approved or cleared by the [place] FDA. When there are no FDA-approved or cleared tests available, and other criteria are met, FDA can make tests available under an emergency access mechanism called an Emergency Use Authorization (EUA). The EUA for this test is supported by the Tr[employer] of Health and Human Service's (HHS's) declaration [...] SARS-CoV-2. Performed By: #### C VDTBH #### [facility] [address] [place] [address] Dr. John Bertrand INFLUENZA A AND B AGon 03-06 INFLUANEGH SEE BELOW Normal [facility] Comment on above: Result Comment: Nega tive for Flu A protein angiten. Infection due to Flu A cannot be ruled out. Flu A angiten in the sample may be below the detection limit of the test. Performed By: #### I NFLUAB #### [facility] [address] [place] [address] Dr. John Bertrand INFLUBNEG SEE BELOW Normal [facility] Comment on above: Result Comment: Nega tive for Flu B protein antigen. Infection due to Flu B cannot be ruled out. Flu B antigen in the sample may be below the detection limit of the test. Performed By: #### I NFLUAB #### [facility] [address] [place] [address] Dr. John Bertrand INFLUENZA A AG Negative Normal NEGATIVE SEE COMMENT [facility] Comment on above: Performed By: #### I NFLUAB #### [facility] [address] [place] [address] Dr. John Bertrand INFLUENZA B AG Negative Normal NEGATIVE SEE COMMENT [facility] Comment on above: Performed By: #### I NFLUAB #### [facility] [address] [place] [address] Dr. John Bertrand INTERNAL CONTROLS Within Normal Limits Normal Wi thin Normal Limits [facility] Comment on above: Performed By: #### I NFLUAB #### [facility] [address] [place] [address] Dr. John Bertrand SYMPTOMATIC COVID-19 ANTIGEN on 03-06-2022 EUA Statement SEE BELOW Normal [facility] Comment on above: Result Comment: This test [...] sooner. Performed By: #### C VDAGS #### [facility] [address] [place] [address] Dr. John Bertrand SARS-CoV-2 (COVID-19) RNA THALIA+probe Ql (Unsp spec) Negative Normal NEGATIVE [facility] Comment on above: Performed By: #### C VDAGS #### [facility] [address] [place], [place] [id number] Dr. John Bertrand Vital Signs Date Time Vital Sign Value Performing Clinician Facility 05-10-2023 09:20-0400 Body height 175.26 cm Monica Jackson Other Front Row Other 05-10-2023 09:20-0400 Body mass index (BMI) [Ratio] 33.96 kg/m2 Monica Jackson Other [facility] Other 05-10-2023 09:20-0400 Body temperature 99 [degF] Monica Jackson Other [facility] Other 05-10-2023 09:20-0400 Body weight 104.33 kg Monica Jackson Other [facility] Other 05-10-2023 09:20-0400 Diastolic blood pressure 102 mm[Hg] Monica Jackson Other [facility] Other 05-10-2023 09:20-0400 Respiratory rate 18 /min Monica Jackson Other [facility] Other 05-10-2023 09:20-0400 SaO2% (BldA) [Mass fraction] 97 % Monica Jackson Other [facility] Other 05-10-2023 09:20-0400 Systolic blood pressure 141 mm[Hg] Monica Jackson Other [facility] Other 01-09-2023 15:29-0400 Blood Pressure Location [facility] [place] 01-09-2023 15:29-0400 Diastolic blood pressure 98 mm[Hg] Colt NILL [facility] [place] 01-09-2023 15:29-0400 Heart rate 80 /min Colt [facility] [place] 01-09-2023 15:29-0400 Respiratory rate 16 /min Colt MYERS[facility] [place] 01-09-2023 15:29-0400 Systolic blood pressure 146 mm[Hg] Colt STUART General Surgery [place] Encounters Encounter Date Encounter Type Care Provider Facility Start: 10-29-2023 End: 10-29-2023 [facility] Start: 06-30-2023 End: 07-02-2023 ambulatory [facility] Start: 06-18-2023 ambulatory [facility] Start: 06-05-2023 Evaluation [facility]ment [facility]: 06-05-2023 Evaluation and manag ement of inpatient AISSATOU Kellen WILLIAMSON [facility] Start: 06-04-2023 Evaluation and manag ement of inpatient AISSATOU Kellen [facility] Start: 06-04-2023 Evaluation and manag ement of inpatient [facility] Start: 06-03-2023 Evaluation and manag ement of inpatient [facility] Start: 06-02-2023 Evaluation and manag ement of inpatient [facility] Start: 06-02-2023 Evaluation and manag ement of inpatient [facility] Start: 06-01-2023 Evaluation and manag ement of inpatient AISSATOU Kellen WILLIAMSON [facility] Start: 06-01-2023 Evaluation and manag ement of inpatient AISSATOU Kellen WILLIAMSON [facility] Start: 06-01-2023 Evaluation and manag ement of inpatient AISSATOU Kellen HAMILTON [facility] Start: 05-31-2023 Evaluation and manag ement of inpatient DEVAUGHN RESENDEZ [facility] Start: 05-31-2023 Evaluation and manag ement of inpatient AISSATOU Kellen HAMILTON [facility] Start: 05-31-2023 [facility] Start: 05-31-2023 Evaluation and manag ement of inpatient AISSATOU GASPARJER [facility] Start: 05-30-2023 Evaluation and manag ement of inpatient AISSATOU Foreman CHELONIXONJER [facility] Start: 05-30-2023 Evaluation and manag ement of [facility] Start: 05-30-2023 Evaluation and manag ement of inpatient AISSATOU Foreman CHELONIXONJER [facility] Start: 05-30-2023 Evaluation and manag ement of inpatient AISSATOU STONEAZBLANCA [facility] Start: 05-29-2023 Evaluation [facility] manag ement [facility] Start: 05-29-2023 Evaluation and manag ement of inpatient [facility] Start: 05-29-2023 Evaluation and manag ement of inpatient AISSTAOU Foreman TERI [facility] Start: 05-28-2023 Evaluation and manag [facility]ment [facility] Start: 05-28-2023 Evaluation and manag ement [facility] Start: 05-28-2023 Evaluation and manag ement of inpatient AISSATOU Foreman [facility] Start: 05-27-2023 Evaluation and manag ement of inpatient [facility] Start: 05-27-2023 Evaluation and manag ement of inpatient [facility] Start: 05-27-2023 End: 06-05-2023 Evaluation and management of inpatient [facility] Start: 05-14-2023 End: 05-15-2023 ambulatory [facility] Start: 05-14-2023 ambulatory AISSATOU WILLIAMSON [facility] Start: 05-14-2023 End: 05-14-2023 ambulatory [facility] Start: 05-14-2023 End: 05-14-2023 Encounter for preprocedural cardiovascular examination [facility] Start: 05-14-2023 End: 05-14-2023 ambulatory [facility] Start: 05-10-2023 End: 05-10-2023 ambulatory Monica Jackson Other Front Row Other Start: 05-10-2023 Office outpatient ne w 20 minutes Monica Jackson [facility] Start: 04-30-2023 End: 05-01-2023 ambulatory [facility] Start: 03-24-2023 ambulatory [facility] Start: 02-12-2023 End: 02-12-2023 ambulatory [facility] Start: 02-12-2023 Encounter for other preprocedural examination DR ADONIS WEBSTER [facility] Start: 02-12-2023 Encounter for preprocedural laboratory examination AB WEBSTER [facility] Start: 02-06-2023 End: 02-07-[address] LAUREN VELASQUEZ . Facility:[facility] Start: 02-06-2023 End: 02-07-2023 Encounter for preprocedural laboratory examination DR LAUREN VELASQUEZ . Facility:[facility] Start: 01-20-2023 Encounter for genera l adult medical examination without abnormal findings DR LAUREN VELASQUEZ . [facility] Start: 01-14-2023 End: 01-15-[address] LAUREN VELASQUEZ . Facility:[facility] Start: 01-14-2023 End: 01-15-2023 Encounter for general adult medical examination without abnormal findings DR LAUREN VELASQUEZ . Facility: Start: 01-09-2023 End: 01-10-2023 [facility] Start: 01-09-2023 End: 01-09-2023 Patient encounter procedure Colt STUART General Surgery Nill/Said [place] Start: 12-16-2022 End: 12-17-[address] LAUREN VELASQUEZ . Facility: Start: 03-06-2022 End: 03-06-[address] LAUREN VELASQUEZ . Facility: Procedures Date Procedure Procedure Detail Performing Clinician Start: 06-30-2023 Follow-up visit FER LOYOLA Start: 06-18-2023 Follow-up visit FER LOYOLA Start: 03-24-2023 Follow-up visit FER LOYOLA Start: 01-14-2023 Follow-up visit FER LOYOLA Start: 01-14-2023 PSA screening MONICA SANTOS Comment on above: Performed By: #### P [facility] #### [facility] [address] [place] [address] Dr. John Bertrand Open reduction of fracture with internal fixation Colt STUART Comment on above: right arm Immunizations Immunization Date Immunization Notes Care Provider Fa cility NEGATED: Highlighted row has not occurred!01-09-2023 influenza virus vaccine, unspecified formulation Colt STUART [facility] [place] NEGATED: Highlighted row has not occurred!01-09-2023 SARS-CoV-2 mRNA (tozinameran 5y-11y) vaccine Colt STUART [facility] Payers Date Payer Category Payer Unknown [id number] 2.16.8 [id number] 1965 Unknown [id number] 2.16.84 [id number] 1965 Unknown [id number] 2.16.84 [id number] 1965 Unknown [id number] 2.16.84 [id number] 1965 Unknown [id number] 2.16.84 [id number] 1965 Unknown [id number] 2.16.84 [id number] 1957 Self-pay [id number] 1957 Unknown [id number] 1957 Unknown [id number] Social History Date Type Detail Facility Start: 01-09-2023 Tobacco smoking status Never s moked tobacco (finding) [facility] [place] Tobacco smoking status Never Gener al [facility] [place] Sex Assigned At Male [facility] Functional Status Date Assessment Result Facility 01-09-2023 Functional Status N/A [facility] [place] Clinical Notes 12-18-2022 to 10-29-2023 Note Date & Type Note Facility 10-29-[address] [facility] 10-29-[address] [facility] 06-30-[address] [facility] 06-18-[address] [facility] 06-05-[address] [facility] 06-05-[address] [facility] 06-04-[address] [facility] 06-04-[address] [facility] 06-04-[address] [facility] 06-04-[address] [facility] 06-03-[address] [facility] 06-03-[address] [facility] 06-03-[address] [facility] 06-03-[address] [facility] 06-03-[address] [facility] 06-03-[address] [facility] 06-02-[address] [facility] 06-02-[address] [facility] 06-02-[address] [facility] 06-02-[address] [facility] 06-02-[address] [facility] 06-02-[address] [facility] 06-02-[address] [facility] 06-02-[address] [facility] 06-01-[address] [facility] 06-01-[address] [facility] 06-01-[address] [facility] 06-01-[address] [facility] 06-01-[address] [facility] 06-01-[address] [facility] 06-01-[address] [facility] 05-31-[address] [facility] 05-31-[address] [facility] 05-31-[address] [facility] 05-31-[address] [facility] 05-31-[address] [facility] 05-30-[address] [facility] 05-30-[address] [facility] 05-30-[address] [facility] 05-30-[address] [facility] 05-29-[address] [facility] 05-29-2023 Note Physical Therapy Can cellation note for 05/29/2023Thursday Pt per nursing had one chest tube pulled but they are waiting for chest xray before pt can be seen . Fur Blower will recheck time permitting . Attempted time : 13:50-13:55 [facility] 05-29-2023 Note Occupational Therapy Occupational Therapy Treatment Patient Name: Flynn Arnett : 1965 Today's Date: 05/29/2023 Pt's chest tube being pulled at this time, will re attempt after x ray has been completed. BROCK Lima [facility] 05-29-[address] [facility] 05-29-[address] [facility] 05-28-[address] [facility] 05-28-[address] [facility] 05-28-[address] [facility] 05-28-[address] [facility] 05-28-[address] [facility] 05-27-[address] [facility] 05-27-[address] [facility] 05-27-[address] [facility] 05-22-[address] [facility] 05-14-[address] [facility] 05-10-2023 Evaluation note Encounter Date Diagnosis [...] tomorrow. You may also follow-up with an research aide if no improvement. Go to the ER for worsening symptoms or concerns May, Left ear impacted cerumen (ICD-10 - H61.22) Cerumen impaction home care material was printed May, Right ear impacted cerumen (ICD-10 - H61.21) Front Row [facility] NoteChief Complaint consultation for umbilical hernia HPI [...] to occur. Follow-up With When Contact Information NARCISO PEPE, BETI Lees Only if needed [address] [place] [address]- Additional Instructions: Problem List/Past Medical [...] Tobacco - Denies T (more content not included)...[facility] Comment on above:Result Comment: Electronically Signed By: Colt STUART MD\.br\Date and Time Signed: 01/09/23 15:56 [id number] Hospital Discharge instructions Follow Up Care 12/18/2022 13:20:00 With:Colt STUART MD, SUR Address: [address] [place] [phone] When: only if needed General Surgery [place] Evaluation + Plan note No data available for this section [facility] [place] History general Narrative - Reported* Type Description Date Medical History GERD Medical History HYPERLIPIDEMIA Hospitalization History KNEE CELLULITIS Front Row Other Progress note No data available for this section [facility] [place] Summary Purpose Family History No Family History Records FoundNo Family History Records FoundNo Family History Records Found Advance Directives No Advanced Directives Records FoundNo Advanced Directives Records FoundNo Advanced Directives Records Found Additional Source Comments Patient Care team informatio n (unrecognized section and content) Personnel Name: Lauren Velasquez MD Address: Address: [address] [place] [id number] (unrecognized sect ion and content) No Status Records FoundNo Status Records FoundNo Status Records Found INFORMATION SOURCE (unrecogn ized section and content) DATE CREATED AUTHOR 01/11/2023 [facility] DATE CREATED AUTHOR AUTHOR'S ORGANIZ ATION 02/13/2023 [facility] DATE CREATED AUTHOR AUTHOR'S ORGANIZ ATION 11/22/2023 [facility] REASON FOR VISIT (unrecogniz ed section [...] BE BASED ON THE PRIMARY CLINICAL RECORDS. [facility]. provides no warranty or guarantee of the accuracy or completeness of information in this document.
[2024-01-16 09:17] LABS: Basophils Percent Auto 0.7 % (0.2-2.0); Eosinophils Absolute Auto 0.3 10^3/uL (0.0-0.7); Eosinophils Percent Auto 4.6 % (0.9-7.0); Hematocrit 45.7 % (42.0-54.0); Hemoglobin 14.6 g/dL (14.0-18.0); Immature Granulocytes Abs Auto 0.01 10^3/uL (0.00-0.03); Immature Granulocytes Pct Auto 0.2 % (0.0-0.5); Lymphocytes Absolute Auto 2.1 10^3/uL (1.2-3.8); Lymphocytes Percent Auto 36.9 % (20.5-60.0); Mean Corpuscular HGB Conc 31.9 g/dL (29.9-35.2); Mean Corpuscular Hemoglobin 26.4 pg (25.9-34.0); Mean Corpuscular Volume 82.6 fL (80.0-94.0); Mean Platelet Volume 10.1 fL (9.5-13.5); Monocytes Absolute Auto 0.5 10^3/uL (0.3-0.8); Monocytes Percent Auto 8.8 % (1.7-12.0); Neutrophils Absolute Auto 2.8 10^3/uL (1.4-6.5); Neutrophils Percent Auto 48.8 % (43.0-75.0); Platelet Count 232 10^3/uL (150-450); Red Blood Count 5.53 10^6/uL (4.70-6.10); White Blood Count 5.7 10^3/uL (4.0-11.0)
[2024-01-16 09:41] LABS: Alanine Aminotransferase 43 U/L (16-63); Albumin Level 3.5 g/dL (3.4-5.0); Alkaline Phosphatase 73 U/L (46-116); Anion Gap 14.6; Aspartate Amino Transferase 22 U/L (15-37); BUN Creatinine Ratio 10.6; Bilirubin Total 0.4 mg/dL (0.2-1.0); Carbon Dioxide 25.5 mmol/L (21.0-32.0); Chloride 105 mmol/L (98-107); Chol HDL Ratio 3.2; Cholesterol 130 mg/dL (<=200); Estimated GFR (African America >60 (>=60); Estimated GFR (Non-African Ame >60 (>=60); Free T3 2.73 pg/mL (2.18-3.98); Globulin 3.4 g/dL; Glucose 122 mg/dL (74-106); HDL Cholesterol 40 mg/dL (40-60); LDL Cholesterol Calculated 76.4 mg/dL; Potassium 4.1 mmol/L (3.5-5.1); Sodium 141 mmol/L (136-145); Thyroid Stimulating Hormone 2.216 uIU/mL (0.358-3.740); Total Protein 6.9 g/dL (6.4-8.2); Triglycerides 68 mg/dL (<=150); VLDL CHOLESTEROL 13.6 mg/dL
[2024-01-16 10:26] LABS: Prostate Specific Antigen Scrn 0.58 ng/mL (<=4.00)
[2024-01-16 10:31] LABS: Estimated Average Glucose 146 mg/dL; Glycohemoglobin A1C 6.7 % (4.5-6.2)
[2024-01-17 12:07] LABS: Insulin 23.1 uIU/mL (2.6-24.9)
== END 2024-01-16 08:26 | disposition home or self-care (01) ==
LOC: LAB 08:27
PROVIDERS: PCP Family Medicine; Visit Provider Family Medicine
DX: Z00.00 Encounter for general adult medical examination without abnormal findings (principal)
CPT/HCPCS: 36415; 80053; 80061; 83036; 83525; 83880; 84436; 84443; 84481; 85025; G0103

== ENCOUNTER 2024-04-08 14:00 | Outpatient (OUT) | payer BC, SELFPAY ==
--- NOTE | 2024-04-08 14:00 | CA_ITS ---
Patient Name: FLYNN ARNETT MR#: [id number] : 1965 Exam Date: 04/08/2024 Ordering Doctor: RICARDO KONG CNP ECHOCARDIOGRAM REPORT PROCEDURE: CA ECHO DOPPLER COMPLETE INDICATIONS: Aortic aneurysm, mitral valve ring COMPARISON: None. DESCRIPTION: COMPLETE ECHOCARDIOGRAM Real-time transthoracic echocardiography with 2D, M-mode, spectral and color flow Doppler performed. QUALITY: Technical quality was good. LEFT VENTRICLE: Normal chamber size. Thickened septal wall. Normal systolic function. LV EF: Normal left ventricular ejection fraction, (>55%). DIASTOLIC: ATRIAL SEPTUM: Visually appears intact. LEFT ATRIUM: Severe dilatation. RIGHT ATRIUM: Moderate dilatation. RIGHT VENTRICLE: Normal chamber size. Normal right ventricular systolic function. TRICUSPID VALVE: Normal mobility and thickness. No stenosis with trivial regurgitation. No evidence of pulmonary hypertension. RVSP 23 mmHg MITRAL VALVE: Trivial mitral regurgitation. S/p mitral valve repair. Mean diastolic mitral valve gradient 4 mmHg at a heart rate of 55 bpm. AORTIC VALVE: Normal trileaflet appearance. No visible sclerosis. Normal leaflet mobility. No evidence of aortic valve stenosis. No aortic regurgitation. AORTIC ROOT: Normal diameter and appearance. Ascending aorta is mildly dilated (3.9 cm). Aortic arch is dilated (3.8 cm). PULMONIC VALVE: Normal thickness and mobility. No stenosis. Trivial regurgitation. PERICARDIUM: No evidence of pericardial effusion. IVC: Collapses with inspirations. IVC is normal in size. PLEURA: CONCLUSION: 1. The left ventricle is normal in size and exhibits normal systolic function. LVEF is 55 to 60%. 2. Normal right ventricular size and systolic function. 3. Moderate to severe biatrial dilatation. 4. Mitral valve status post ring repair with normal Doppler flows. Trivial mitral regurgitation is seen. 5. Mildly dilated ascending aorta and aortic arch. 6. Normal right-sided pressures. Adult Echocardiography Procedure Report Left Ventricle LVEDD (3.7 - 5.6 cm): 5.49 cm LVESD (2.2 - 4.0 cm): 3.59 cm LVIVS thickness (0.6 - 1.2 cm): 1.30 cm LVPW thickness (0.5 - 1.0 cm): 1.03 cm LVOT Max Gradient: 3.11 mm[Hg] LVOT Area (cm2): 0.88 m/s Peak Velocity (LVOT): 0.88 m/s Mean Velocity (LVOT): 0.63 m/s LVOT Diameter 2.55 cm Left Atrium LA Volume Index (2D A2C): 52.35 ml/m2 Left Atrium Systolic Dimension: 4.97 cm Mitral Valve MV E to A Ratio: 0.93 Mitral Valve A-Wave Peak Velocity: 1.25 m/s Mitral Valve E-Wave Peak Velocity: 1.17 m/s Right Ventricle Aorta AO Root Diam: 3.82 cm Ascending Ao Diam: 2.99 cm Aortic Valve AoV Area (Peak Donal): 3.17 cm2, 3.17 cm2 AoV Area (VTI): 2.77 cm2, 2.77 cm2 Peak Velocity(Antegrade Flow): 1.42 m/s Peak Gradient(Antegrade Flow): 8.08 mm[Hg] Mean Velocity(Antegrade Flow): 1.04 m/s Mean Gradient(Antegrade Flow): 4.77 mm[Hg] Velocity Time Integral: 37.63 cm Tricuspid Valve Peak Velocity (Regurgitant Flow): 2.24 m/s, 2.04 m/s Pulmonic Valve Mean Gradient: 2.10 mm[Hg] Mean Velocity: 0.66 m/s Peak Velocity: 1.10 m/s, 1.02 m/s Peak Gradient: 4.20 mm[Hg], 4.87 mm[Hg] Right Atrium Right Atrium Systolic Pressure: 76.21 ml, 76.21 ml Dictated by: Rony Flowers M.D. on 04/08/2024 at 20:30 Approved by: Rony Flowers M.D. on 04/08/2024 at 20:35
--- OUTSIDE RECORDS SUMMARY | 2024-04-08 14:15 | XMS_ITS | CCD ---
Author Organization [facility] Care Team Providers Care Community Reinvestment Act Officer Name Role Phone Lauren Velasquez Primary Care [...] Monica Jackson Unavailable FER LOYOLA Attending Unavailable ELTAHAWY, EHAB Referring Unavailable DEVAUGHN RESENDEZ Attending Unavailable AISSATOU WILLIAMSON Referring Unavailabl e CARRIDEVAUGHN ALEMAN Referring Unavailable AISSATOU WILLIAMSON Referring Unavailabl e AISSATOU WILLIAMSON Referring Unavailabl e DEVAUGHN RESENDEZ Attending Unavailable DEVAUGHN RESENDEZ Admitting Unavailable ELTAHAWYADONIS Attending Unavailable ELTAHAWY EHAB Admitting Unavailable DEVAUGHN RESENDEZ Referring Unavailable KENYON, DEVAUGHN Referring Unavailable AISSATOU WILLIAMSON Referring Unavailabl e [...] KULAKOWSKI, AISSATOU Foreman Attending Unavailabl e ELTAHAWY, Attending Unavailable RICARDO KONG Attending Unavailable MILLA, FER Referring Unavailable MILLA, FER Referring Unavailable MILLA, FER Referring Unavailable KULAKOWSKI, AISSATOU [...] 01/13/20 Status: Ordered take 1 tablet by [facility] every twenty-four hours Pantoprazole Sodium 40 MG [...] disease (2 sources) 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 Repeat BMP in 2-4 weeks. Thanks! [facility] 36on 11-06-2023 36 If he is feeling better on the increased dose of lasix would like for him to get a follow-up BMP sometime next week to check his kidney function to make sure we are not dehydrating him and okay to continue it. Thanks [facility] Orders Onlyon 10-29-2023 Orders Only [facility] Telemedicineon 10-29-2023 Telemedicine [facility] Telephoneon 10-29-2023 Telephone [facility] Orders Onlyon 08-26-2023 Orders Only [facility] 36on 07-22-2023 36 Per [facility] Cardiac Reha b, patient is requesting to return to work next week. He states his employer has arranged for him to do light duty. Is this ok with you? Please advise. Thanks. [facility] Documentationon 07-16-2023 Documentation [facility] 37on 06-18-2023 37 Normal [facility] 30on 06-05-2023 30 The patient is Moderately Stable - Low risk of patient condition declining or worsening The patient's goals for the shift include rest The clinical goals for the shift include maintain hemodynamics Normal [facility] BASIC METABOLIC PANELon 09-0 Anion gap [Moles/Vol] 9 mmol/L Normal 7-20 [facility] Comment on above: Performed By: #### L [id number] ####[facility] (BEAKER)[address] [place] [address] Calcium [Mass/Vol] 8.4 mg/dL Low 8.6-10.3 [facility] Comment on above: Performed By: #### L [id number] ####[facility] (BEAKER)[address] [place] [address] Chloride [Moles/Vol] 101 mmol/L Normal 98-107 [facility] Comment on above: Performed By: #### L [id number] ####[facility] (BEAKER)[address] [place] [address] CO2 [Moles/Vol] 27 mmol/L Normal 21-31 [facility] Comment on above: Performed By: #### L [id number] ####[facility] (BEAKER)[address] [place] [address] Creatinine [Mass/Vol] 1.12 mg/dL Normal 0.60-1.30 [facility] Comment on above: Performed By: #### L [id number] ####[facility] (BEAKER)[address] [place] [address] GLOMERULAR FILTRATION RATE ML/MIN/1.73 SQ M.PREDICTED 58.1 mL/min/1.73m*2 Low >60.0 [facility] Comment on above: Result Comment: [facility]???s estimated glomerular filtration rate (eGFR) will no [...] of individuals. Performed By: #### L [id number] ####[facility] (BEAKER)[address] [place] [address] Glucose [Mass/Vol] 130 mg/dL High 70-100 [facility] Comment on above: Performed By: #### L [id number] ####[facility] [place] [address] Potassium [Moles/Vol] 4.3 mmol/L Normal 3.5-5.1 [facility] Comment on above: Performed By: #### L [id number] ####[facility] ([facility] [place] [address] Sodium [Moles/Vol] 133 mmol/L Low 136-145 [facility] Comment on above: Performed By: #### L [id number] ####[facility] (BEAKER)[address] [place] [address] Urea nitrogen [Mass/Vol] 21 mg/dL Normal 7-25 [facility] Comment on above: Performed By: #### L [id number] ####[facility] (BEAKER)[address] [place] [address] UREA NITROGEN/CREATININE (MASS RATIO) IN SER/PLAS 18.8 Normal [facility] Comment on above: Performed By: #### L [id number] ####[facility] (BEAKER)[address] [place] [address] CBCon 06-05-2023 Erythrocyte distribution width (RBC) [Ratio] 14.2 % Normal 11.5-15.0 [facility] Comment on above: Performed By: #### L [id number] ####[facility] (BEAKER)[address] [place] [address] ERYTHROCYTE MEAN CORPUSCULAR HEMOGLOBIN CONCENTRATION (G/DL) BY AUTOMATED 32.9 g/dL Normal 32.0-35.0 [facility] Comment on above: Performed By: #### L [id number] ####[facility] ([facility])[address] [place] [address] Hematocrit (Bld) [Volume fraction] 31.3 % Low 36.0-55.0 [facility] Comment on above: Performed By: #### L [id number] ####[facility] ([facility])[address] [place] [address] Hemoglobin (Bld) [Mass/Vol] 10.3 g/dL Low 12.0-17.0 [facility] Comment on above: Performed By: #### L [id number] ####[facility] ([facility])[address] [place], [place] [address] MCH (RBC) [Entitic mass] 27.2 pg Normal 27.0-33.0 [facility] Comment on above: Performed By: #### L [id number] ####[facility] ([facility])[address] [place] [address] MCV (RBC) [Entitic vol] 82.6 fL Normal 82.0-98.0 [facility] Comment on above: Performed By: #### L [id number] ####[facility] ([facility])[address] [place] [address] PLATELETS (10*3/UL) IN BLOOD AUTOMATED COUNT 365 10*3/uL Normal 150-400 [facility] Comment on above: Performed By: #### L [id number] ####[facility] ([facility])[address] [place] [address] RBC (Bld) [#/Vol] 3.79 10*6/uL Low 3.80-5.70 [facility] Comment on above: Performed By: #### L [id number] ####[facility] ([facility] [place] [address] WBC (Bld) [#/Vol] 11.26 10*3/uL High 4.00-10.60 [facility] Comment on above: Performed By: #### L [id number] ####[facility] ([facility])[address] [place] [address] DSon 06-05-2023 DS [facility] MAGNESIUMon 06-05-2023 Magnesium [Mass/Vol] 1.9 mg/dL Normal 1.9-2.7 [facility] Comment on above: Performed By: #### L [id number] ####[facility] ([facility])[address] [place] [address] NURSNOTEon 06-05-2023 NURSNOTE Discharge instructio ns reviewed with pt and pt ; copy of paperwork given to pt. Pt assisted into wheelchair and transported to [facility] for discharge to home. [facility] POCT GLUCOSE METER UNSOLICIT ED RESULTSon 06-05-2023 Glucose [Mass/Vol] 135 mg/dL High 70-105 [facility] Comment on above: Order Comment: Waive d Testing in the ED is performed under the ED CLIA certificate #[id number]. Result Comment: [email or web address] Performed By: #### L [id number] ####[facility] ([facility])[address] [place] [address] 30on 06-04-2023 30 Normal [facility] 30 Normal [facility] BASIC METABOLIC PANELon 08-3 Anion gap [Moles/Vol] 9 mmol/L Normal 7-20 [facility] Comment on above: Performed By: #### L [id number] ####[facility] ([facility])[address] [place] [address] Calcium [Mass/Vol] 8.3 mg/dL Low 8.6-10.3 [facility] Comment on above: Performed By: #### L [id number] ####[facility] ([facility])[address] [place] [address] Chloride [Moles/Vol] 98 mmol/L Normal 98-107 [facility] Comment on above: Performed By: #### L [id number] ####[facility] (BEAKER)[address] [place] [address] CO2 [Moles/Vol] 29 mmol/L Normal 21-31 [facility] Comment on above: Performed By: #### L [id number] ####[facility] (BEAKER)[address] [place] [address] Creatinine [Mass/Vol] 1.09 mg/dL Normal 0.60-1.30 [facility] Comment on above: Performed By: #### L [id number] ####[facility] (BEAKER)[address] [place] [address] GLOMERULAR FILTRATION RATE ML/MIN/1.73 SQ M.PREDICTED 60.0 mL/min/1.73m*2 Low >60.0 [facility] Comment on above: Result Comment: [facility]???s estimated glomerular filtration rate (eGFR) will no [...] of individuals. Performed By: #### L [id number] ####[facility] (BEAKER)[address] [place] [address] Glucose [Mass/Vol] 125 mg/dL High 70-100 [facility] Comment on above: Performed By: #### L [id number] ####[facility] (BEAKER)[address] [place] [address] Potassium [Moles/Vol] 3.8 mmol/L Normal 3.5-5.1 [facility] Comment on above: Performed By: #### L [id number] ####[facility] (BEAKER)[address] [place] [address] Sodium [Moles/Vol] 132 mmol/L Low 136-145 [facility] Comment on above: Performed By: #### L [id number] ####[facility] ([facility] [place] [address] Urea nitrogen [Mass/Vol] 27 mg/dL High 7-25 [facility] Comment on above: Performed By: #### L [id number] ####[facility] ([facility])[address] [place] [address] UREA NITROGEN/CREATININE (MASS RATIO) IN SER/PLAS 24.8 Normal [facility] Comment on above: Performed By: #### L [id number] ####[facility] ([facility])[address] [place] [address] CBCon 06-04-2023 Erythrocyte distribution width (RBC) [Ratio] 13.9 % Normal 11.5-15.0 [facility] Comment on above: Performed By: #### L [id number] ####[facility] ([facility])[address] [place] [address] ERYTHROCYTE MEAN CORPUSCULAR HEMOGLOBIN CONCENTRATION (G/DL) BY AUTOMATED 33.2 g/dL Normal 32.0-35.0 [facility] Comment on above: Performed By: #### L [id number] ####[facility] ([facility])[address] [place] [address] Hematocrit (Bld) [Volume fraction] 33.1 % Low 36.0-55.0 [facility] Comment on above: Performed By: #### L [id number] ####[facility] ([facility] [place] [address] Hemoglobin (Bld) [Mass/Vol] 11.0 g/dL Low 12.0-17.0 [facility] Comment on above: Performed By: #### L [id number] ####[facility] ([facility])[address] [place] [address] MCH (RBC) [Entitic mass] 27.6 pg Normal 27.0-33.0 [facility] Comment on above: Performed By: #### L [id number] ####[facility] ([facility])[address] [place] [address] MCV (RBC) [Entitic vol] 83.0 fL Normal 82.0-98.0 [facility] Comment on above: Performed By: #### L [id number] ####[facility] ([facility])[address] [place] [address] PLATELETS (10*3/UL) IN BLOOD AUTOMATED COUNT 372 10*3/uL Normal 150-400 [facility] Comment on above: Performed By: #### L [id number] ####[facility] ([facility])[address] [place] [address] RBC (Bld) [#/Vol] 3.99 10*6/uL Normal 3.80-5.70 [facility] Comment on above: Performed By: #### L [id number] ####[facility] ([facility])[address] [place] [address] WBC (Bld) [#/Vol] 11.64 10*3/uL High 4.00-10.60 [facility] Comment on above: Performed By: #### L [id number] ####[facility] ([facility])[address] [place] [address] MAGNESIUMon 06-04-2023 Magnesium [Mass/Vol] 2.0 mg/dL Normal 1.9-2.7 [facility] Comment on above: Performed By: #### L [id number] ####[facility] ([facility] [place] [address] POCT GLUCOSE METER UNSOLICIT ED RESULTSon 06-04-2023 Glucose [Mass/Vol] 159 mg/dL High 70-105 [facility] Comment on above: Order Comment: Waive d Testing in the ED is performed under the ED CLIA certificate #[id number]. Result Comment: [email or web address] Performed By: #### L [id number] ####[facility] ([facility])[address] [place] [address] Glucose [Mass/Vol] 188 mg/dL High 70-105 [facility] Comment on above: Order Comment: Waive d Testing in the ED is performed under the ED CLIA certificate #[id number]. Result Comment: than sen2 Performed By: #### L [id number] ####[facility] (BEPostalGuard)[address] [place] [address] Glucose [Mass/Vol] 185 mg/dL High 70-105 [facility] Comment on above: Order Comment: Waive d Testing in the ED is performed under the ED CLIA certificate #[id number]. Result Comment: than sen2 Performed By: #### L [id number] ####[facility] (Edvert)[address] [place] [address] Glucose [Mass/Vol] 141 mg/dL High 70-105 [facility] Comment on above: Order Comment: Waive d Testing in the ED is performed under the ED CLIA certificate #[id number]. Result Comment: than sen2 Performed By: #### L [id number] ####[facility] ([employer])[address] [place] [address] 30on 06-03-2023 30 The patient is Moderately Stable - Low risk of patient condition declining or worsening The patient's goals for the shift include rest The clinical goals for the shift include decreased resp support Normal [facility] 30 Normal [facility] BASIC METABOLIC PANELon 08-3 Anion gap [Moles/Vol] 13 mmol/L Normal 7-20 [facility] Comment on above: Performed By: #### L [id number] ####[facility] ([employer])[address] [place] [address] Calcium [Mass/Vol] 9.0 mg/dL Normal 8.6-10.3 [facility] Comment on above: Performed By: #### L [id number] ####[facility] ([employer])[address] [place] [address] Chloride [Moles/Vol] 91 mmol/L Low 98-107 [facility] Comment on above: Performed By: #### L [id number] ####[facility] (BEAKER)[address] [place] [address] CO2 [Moles/Vol] 31 mmol/L Normal 21-31 [facility] Comment on above: Performed By: #### L [id number] ####[facility] (BEAKER)[address] [place] [address] Creatinine [Mass/Vol] 1.40 mg/dL High 0.60-1.30 [facility] Comment on above: Performed By: #### L [id number] ####[facility] (BEAKER)[address] [place] [address] GLOMERULAR FILTRATION RATE ML/MIN/1.73 SQ M.PREDICTED 44.4 mL/min/1.73m*2 Low >60.0 [facility] Comment on above: Result Comment: [facility]???s estimated glomerular filtration rate (eGFR) will no [...] of individuals. Performed By: #### L [id number] ####[facility] (BEAKER)[address] [place] [address] Glucose [Mass/Vol] 179 mg/dL High 70-100 [facility] Comment on above: Performed By: #### L [id number] ####[facility] (BEAKER)[address] [place] [address] Potassium [Moles/Vol] 3.6 mmol/L Normal 3.5-5.1 [facility] Comment on above: Performed By: #### L [id number] ####[facility] (BEAKER)[address] [place] [address] Sodium [Moles/Vol] 131 mmol/L Low 136-145 [facility] Comment on above: Performed By: #### L [id number] ####[facility] ([facility] [place] [address] Urea nitrogen [Mass/Vol] 33 mg/dL High 7-25 [facility] Comment on above: Performed By: #### L [id number] ####[facility] ([facility] [place] [address] UREA NITROGEN/CREATININE (MASS RATIO) IN SER/PLAS 23.6 Normal [facility] Comment on above: Performed By: #### L [id number] ####[facility] ([facility])[address] [place] [address] CBCon 06-03-2023 Erythrocyte distribution width (RBC) [Ratio] 13.9 % Normal 11.5-15.0 [facility] Comment on above: Performed By: #### L [id number] ####[facility] ([facility])[address] [place] [address] ERYTHROCYTE MEAN CORPUSCULAR HEMOGLOBIN CONCENTRATION (G/DL) BY AUTOMATED 32.1 g/dL Normal 32.0-35.0 [facility] Comment on above: Performed By: #### L [id number] ####[facility] ([facility] [place] [address] Hematocrit (Bld) [Volume fraction] 33.6 % Low 36.0-55.0 [facility] Comment on above: Performed By: #### L [id number] ####[facility] ([facility])[address] [place] [address] Hemoglobin (Bld) [Mass/Vol] 10.8 g/dL Low 12.0-17.0 [facility] Comment on above: Performed By: #### L [id number] ####[facility] (BEAKER)[address] [place] [address] MCH (RBC) [Entitic mass] 26.6 pg Low 27.0-33.0 [facility] Comment on above: Performed By: #### L [id number] ####[facility] ([facility])[address] [place] [address] MCV (RBC) [Entitic vol] 82.8 fL Normal 82.0-98.0 [facility] Comment on above: Performed By: #### L [id number] ####[facility] ([facility])[address] [place] [address] PLATELETS (10*3/UL) IN BLOOD AUTOMATED COUNT 327 10*3/uL Normal 150-400 [facility] Comment on above: Performed By: #### L [id number] ####[facility] ([facility])[address] [place] [address] RBC (Bld) [#/Vol] 4.06 10*6/uL Normal 3.80-5.70 [facility] Comment on above: Performed By: #### L [id number] ####[facility] ([facility])[address] [place] [address] WBC (Bld) [#/Vol] 11.45 10*3/uL High 4.00-10.60 [facility] Comment on above: Performed By: #### L [id number] ####[facility] ([facility])[address] [place] [address] MAGNESIUMon 06-03-2023 Magnesium [Mass/Vol] 2.2 mg/dL Normal 1.9-2.7 [facility] Comment on above: Performed By: #### L [id number] ####[facility] ([facility] [place] [address] POCT GLUCOSE METER UNSOLICIT ED RESULTSon 06-03-2023 Glucose [Mass/Vol] 126 mg/dL High 70-105 [facility] Comment on above: Order Comment: Waive d Testing in the ED is performed under the ED CLIA certificate #[id number]. Result Comment: [email or web address] Performed By: #### L [id number] ####[facility] ([facility])[address] [place] [address] Glucose [Mass/Vol] 110 mg/dL High 70-105 [facility] Comment on above: Order Comment: Waive d Testing in the ED is performed under the ED CLIA certificate #[id number]. Result Comment: [email or web address] Performed By: #### L [id number] ####[facility] (BEAKER)[address] [place] [address] Glucose [Mass/Vol] 207 mg/dL High 70-105 [facility] Comment on above: Order Comment: Waive d Testing in the ED is performed under the ED CLIA certificate #[id number]. Result Comment: [email or web address] Performed By: #### L [id number] ####[facility] ([facility] [place] [address] Glucose [Mass/Vol] 166 mg/dL High 70-105 [facility] Comment on above: Order Comment: Waive d Testing in the ED is performed under the ED CLIA certificate #[id number]. Result Comment: [email or web address] Performed By: #### L [id number] ####[facility] (BEAKER)[address] [place] [address] 30on 06-02-2022 30 Normal [facility] 30 Normal [facility] BASIC METABOLIC PANELon - Anion gap [Moles/Vol] 12 mmol/L Normal 7-20 [facility] Comment on above: Performed By: #### L [id number] ####[facility] (BEAKER)[address] [place] [address] Calcium [Mass/Vol] 8.9 mg/dL Normal 8.6-10.3 [facility] Comment on above: Performed By: #### L [id number] ####[facility] (BEAKER)[address] [place] [address] Chloride [Moles/Vol] 90 mmol/L Low 98-107 [facility] Comment on above: Performed By: #### L [id number] ####[facility] (BEAKER)[address] [place] [address] CO2 [Moles/Vol] 33 mmol/L High 21-31 [facility] Comment on above: Performed By: #### L [id number] ####[facility] ([facility])[address] [place] [address] Creatinine [Mass/Vol] 1.33 mg/dL High 0.60-1.30 [facility] Comment on above: Performed By: #### L [id number] ####[facility] ([facility])[address] [facility] [place] [address] GLOMERULAR FILTRATION RATE ML/MIN/1.73 SQ M.PREDICTED 47.3 mL/min/1.73m*2 Low >60.0 [facility] Comment on above: Result Comment: [facility]???s estimated glomerular filtration rate (eGFR) will no [...] of individuals. Performed By: #### L [id number] ####[facility] ([facility])[address] [facility] [place] [address] Glucose [Mass/Vol] 124 mg/dL High 70-100 [facility] Comment on above: Performed By: #### L [id number] ####[facility] ([facility])[address] [place] [place] [address] Potassium [Moles/Vol] 3.8 mmol/L Normal 3.5-5.1 [facility] Comment on above: Performed By: #### L [id number] ####[facility] ([facility])[address] [place] [address] Sodium [Moles/Vol] 131 mmol/L Low 136-145 [facility] Comment on above: Performed By: #### L [id number] ####[facility] ([facility])[address] [place] [address] Urea nitrogen [Mass/Vol] 30 mg/dL High 7-25 [facility] Comment on above: Performed By: #### L [id number] ####[facility] ([facility])[address] [place] [address] UREA NITROGEN/CREATININE (MASS RATIO) IN SER/PLAS 22.6 Normal [facility] Comment on above: Performed By: #### L [id number] ####[facility] [place] [address] CBCon 06-02-2023 Erythrocyte distribution width (RBC) [Ratio] 13.9 % Normal 11.5-15.0 [facility] Comment on above: Performed By: #### L [id number] ####[facility] [place] [address] ERYTHROCYTE MEAN CORPUSCULAR HEMOGLOBIN CONCENTRATION (G/DL) BY AUTOMATED 32.4 g/dL Normal 32.0-35.0 [facility] Comment on above: Performed By: #### L [id number] ####[facility] ([facility])[address] [place] [address] Hematocrit (Bld) [Volume fraction] 31.8 % Low 36.0-55.0 [facility] Comment on above: Performed By: #### L [id number] ####[facility] ([facility])[address] [place] [address] Hemoglobin (Bld) [Mass/Vol] 10.3 g/dL Low 12.0-17.0 [facility] Comment on above: Performed By: #### L [id number] ####[facility] ([facility])[address] [place] [address] MCH (RBC) [Entitic mass] 26.8 pg Low 27.0-33.0 [facility] Comment on above: Performed By: #### L [id number] ####[facility] ([facility])[address] [place] [address] MCV (RBC) [Entitic vol] 82.6 fL Normal 82.0-98.0 [facility] Comment on above: Performed By: #### L [id number] ####[facility] ([facility])[address] [place] [address] PLATELETS (10*3/UL) IN BLOOD AUTOMATED COUNT 291 10*3/uL Normal 150-400 [facility] Comment on above: Performed By: #### L [id number] ####[facility] ([facility])[address] [place] [address] RBC (Bld) [#/Vol] 3.85 10*6/uL Normal 3.80-5.70 [facility] Comment on above: Performed By: #### L [id number] ####[facility] ([facility])[address] [place] [address] WBC (Bld) [#/Vol] 9.29 10*3/uL Normal 4.00-10.60 [facility] Comment on above: Performed By: #### L [id number] ####[facility] ([facility])[address] [place] [address] MAGNESIUMon 06-02-2023 Magnesium [Mass/Vol] 2.2 mg/dL Normal 1.9-2.7 [facility] Comment on above: Performed By: #### L [id number] ####[facility] ([facility])[address] [place] [address] POCT GLUCOSE METER UNSOLICIT ED RESULTSon 06-02-2023 Glucose [Mass/Vol] 185 mg/dL High 70-105 [facility] Comment on above: Order Comment: Waive d Testing in the ED is performed under the ED CLIA certificate #[id number]. Result Comment: [email or web address] Performed By: #### L [id number] ####[facility] ([facility])[address] [place] [address] Glucose [Mass/Vol] 122 mg/dL High 70-105 [facility] Comment on above: Order Comment: Waive d Testing in the ED is performed under the ED CLIA certificate #[id number]. Result Comment: [email or web address] Performed By: #### L [id number] ####[facility] ([facility])[address] [place] [address] Glucose [Mass/Vol] 188 mg/dL High 70-105 [facility] Comment on above: Order Comment: Waive d Testing in the ED is performed under the ED CLIA certificate #[id number]. Result Comment: [email or web address] Performed By: #### L [id number] ####[facility] ([facility])[address] [place] [address] Glucose [Mass/Vol] 169 mg/dL High 70-105 [facility] Comment on above: Order Comment: Waive d Testing in the ED is performed under the ED CLIA certificate #[id number]. Result Comment: [email or web address] Performed By: #### L [id number] ####[facility] ([facility])[address] [place] [address] 30on 06-01-2022 30 Normal [facility] 30 Normal [facility] BASIC METABOLIC PANELon 05-06 Anion gap [Moles/Vol] 12 mmol/L Normal 7-20 [facility] Comment on above: Performed By: #### L [id number] ####[facility] ([facility])[address] [place] [address] Calcium [Mass/Vol] 8.4 mg/dL Low 8.6-10.3 [facility] Comment on above: Performed By: #### L [id number] ####[facility] ([facility])[address] [place] [address] Chloride [Moles/Vol] 89 mmol/L Low 98-107 [facility] Comment on above: Performed By: #### L [id number] ####[facility] ([facility])[address] [place] [address] CO2 [Moles/Vol] 33 mmol/L High 21-31 [facility] Comment on above: Performed By: #### L [id number] ####[facility] ([facility])[address] [place] [address] Creatinine [Mass/Vol] 1.31 mg/dL High 0.60-1.30 [facility] Comment on above: Performed By: #### L [id number] ####[facility] ([facility])[address] [place] [address] GLOMERULAR FILTRATION RATE ML/MIN/1.73 SQ M.PREDICTED 48.1 mL/min/1.73m*2 Low >60.0 [facility] Comment on above: Result Comment: [facility]???s estimated glomerular filtration rate (eGFR) will no [...] of individuals. Performed By: #### L [id number] ####[facility] ([facility])[address] [place] [address] Glucose [Mass/Vol] 141 mg/dL High 70-100 [facility] Comment on above: Performed By: #### L [id number] ####[facility] ([facility])[address] [place] [address] Potassium [Moles/Vol] 3.3 mmol/L Low 3.5-5.1 [facility] Comment on above: Performed By: #### L [id number] ####[facility] ([facility])[address] [place] [address] Sodium [Moles/Vol] 131 mmol/L Low 136-145 [facility] Comment on above: Performed By: #### L [id number] ####[facility] ([facility])[address] [place] [address] Urea nitrogen [Mass/Vol] 36 mg/dL High 7-25 [facility] Comment on above: Performed By: #### L [id number] ####[facility] ([facility] [place] [address] UREA NITROGEN/CREATININE (MASS RATIO) IN SER/PLAS 27.5 Normal [facility] Comment on above: Performed By: #### L [id number] ####[facility] [place] [address] Anion gap [Moles/Vol] 9 mmol/L Normal 7-20 [facility] Comment on above: Performed By: #### L [id number] ####[facility] ([facility])[address] [place] [address] Calcium [Mass/Vol] 8.4 mg/dL Low 8.6-10.3 [facility] Comment on above: Performed By: #### L [id number] ####[facility] ([facility])[address] [place] [address] Chloride [Moles/Vol] 87 mmol/L Low 98-107 [facility] Comment on above: Performed By: #### L [id number] ####[facility])[address] [place] [address] CO2 [Moles/Vol] 37 mmol/L High 21-31 [facility] Comment on above: Performed By: #### L [id number] ####[facility] ([facility])[address] [place] [address] Creatinine [Mass/Vol] 1.57 mg/dL High 0.60-1.30 [facility] Comment on above: Performed By: #### L [id number] ####[facility] ([facility])[address] [place] [address] GLOMERULAR FILTRATION RATE ML/MIN/1.73 SQ M.PREDICTED 38.7 mL/min/1.73m*2 Low >60.0 [facility] Comment on above: Result Comment: [facility]???s estimated glomerular filtration rate (eGFR) will no [...] of individuals. Performed By: #### L [id number] ####[facility] ([facility])[address] [place] [address] Glucose [Mass/Vol] 159 mg/dL High 70-100 [facility] Comment on above: Performed By: #### L [id number] ####[facility] ([facility])[address] [place] [address] Potassium [Moles/Vol] 3.2 mmol/L Low 3.5-5.1 [facility] Comment on above: Performed By: #### L [id number] ####[facility] ([facility])[address] [place] [address] Sodium [Moles/Vol] 130 mmol/L Low 136-145 [facility] Comment on above: Performed By: #### L [id number] ####[facility] ([facility])[address] [place] [address] Urea nitrogen [Mass/Vol] 39 mg/dL High 7-25 [facility] Comment on above: Performed By: #### L [id number] ####[facility] ([facility])[address] [place] [address] UREA NITROGEN/CREATININE (MASS RATIO) IN SER/PLAS 24.8 Normal [facility] Comment on above: Performed By: #### L [id number] ####[facility] ([facility])[address] [place] [address] CBCon 06-01-2023 Erythrocyte distribution width (RBC) [Ratio] 14.1 % Normal 11.5-15.0 [facility] Comment on above: Performed By: #### L [id number] ####[facility] [place] [address] ERYTHROCYTE MEAN CORPUSCULAR HEMOGLOBIN CONCENTRATION (G/DL) BY AUTOMATED 33.7 g/dL Normal 32.0-35.0 [facility] Comment on above: Performed By: #### L [id number] ####[facility] ([facility])[address] [place] [address] Hematocrit (Bld) [Volume fraction] 27.9 % Low 36.0-55.0 [facility] Comment on above: Performed By: #### L [id number] ####[facility] ([facility])[address] [place] [address] Hemoglobin (Bld) [Mass/Vol] 9.4 g/dL Low 12.0-17.0 [facility] Comment on above: Performed By: #### L [id number] ####[facility] ([facility])[address] [place] [address] MCH (RBC) [Entitic mass] 27.6 pg Normal 27.0-33.0 [facility] Comment on above: Performed By: #### L [id number] ####[facility] ([facility])[address] [place] [address] MCV (RBC) [Entitic vol] 81.8 fL Low 82.0-98.0 [facility] Comment on above: Performed By: #### L [id number] ####[facility] ([facility])[address] [place] [address] PLATELETS (10*3/UL) IN BLOOD AUTOMATED COUNT 238 10*3/uL Normal 150-400 [facility] Comment on above: Performed By: #### L [id number] ####[facility] ([facility])[address] [place] [address] RBC (Bld) [#/Vol] 3.41 10*6/uL Low 3.80-5.70 [facility] Comment on above: Performed By: #### L [id number] ####[facility] ([facility])[address] [place] [address] WBC (Bld) [#/Vol] 9.51 10*3/uL Normal 4.00-10.60 [facility] Comment on above: Performed By: #### L [id number] ####[facility] ([facility])[address] [place] [address] CONSULTon 06-01-2023 CONSULT Normal [facility] MAGNESIUMon 06-01-2023 Magnesium [Mass/Vol] 2.2 mg/dL Normal 1.9-2.7 [facility] Comment on above: Performed By: #### L [id number] ####[facility] ([facility])[address] [place] [address] Magnesium [Mass/Vol] 2.1 mg/dL Normal 1.9-2.7 [facility] Comment on above: Performed By: #### L [id number] ####[facility] ([facility])[address] [place] [address] Magnesium [Mass/Vol] 2.2 mg/dL Normal 1.9-2.7 [facility] Comment on above: Performed By: #### L [id number] ####[facility] ([facility])[address] [place] [address] Magnesium [Mass/Vol] 2.2 mg/dL Normal 1.9-2.7 [facility] Comment on above: Performed By: #### L [id number] ####[facility] ([facility])[address] [place] [address] PHOSPHORUSon 06-01-2023 Magnesium [Mass/Vol] 4.0 mg/dL Normal 2.5-5.0 [facility] Comment on above: Performed By: #### L [id number] ####[facility] ([facility])[address] [place] [address] POCT GLUCOSE METER UNSOLICIT ED RESULTSon 06-01-2023 Glucose [Mass/Vol] 134 mg/dL High 70-105 [facility] Comment on above: Order Comment: Waive d Testing in the ED is performed under the ED CLIA certificate #[id number]. Result Comment: [email or web address] Performed By: #### L [id number] ####[facility] ([facility])[address] [place] [address] Glucose [Mass/Vol] 131 mg/dL High 70-105 [facility] Comment on above: Order Comment: Waive d Testing in the ED is performed under the ED CLIA certificate #[id number]. Result Comment: [email or web address] Performed By: #### L [id number] ####[facility] (AKER)[address] [place] [address] Glucose [Mass/Vol] 137 mg/dL High 70-105 [facility] Comment on above: Order Comment: Waive d Testing in the ED is performed under the ED CLIA certificate #[id number]. Result Comment: [email or web address] Performed By: #### L [id number] ####[facility] ([facility])[address] [facility] [place] [address] Glucose [Mass/Vol] 154 mg/dL High 70-105 [facility] Comment on above: Order Comment: Waive d Testing in the ED is performed under the ED CLIA certificate #[id number]. Result Comment: [email or web address] Performed By: #### L [id number] ####[facility] ([facility])[address] [place] [address] Glucose [Mass/Vol] 164 mg/dL High 70-105 [facility] Comment on above: Order Comment: Waive d Testing in the ED is performed under the ED CLIA certificate #[id number]. Result Comment: [email or web address] Performed By: #### L [id number] ####[facility] ([facility])[address] [place] [address] POTASSIUMon 06-01-2023 Potassium [Moles/Vol] 3.4 mmol/L Low 3.5-5.1 [facility] Comment on above: Performed By: #### L [id number] ####[facility] ([facility])[address] [place] [address] Potassium [Moles/Vol] 3.4 mmol/L Low 3.5-5.1 [facility] Comment on above: Performed By: #### L [id number] ####[facility] ([facility]ER)[address] [place] [address] 30on 05-31-2023 30 Normal [facility] 30 Normal [facility] ANESon 05-31-2023 ANES Normal [facility] BASIC METABOLIC PANELon 05-06 Anion gap [Moles/Vol] 11 mmol/L Normal 04-23 [facility] Comment on above: Performed By: #### L [id number] ####[facility] ([facility]ER)[address] [place] [address] Calcium [Mass/Vol] 8.4 mg/dL Low 8.6-10.3 [facility] Comment on above: Performed By: #### L [id number] ####[facility] ([facility]ER)[address] [place] [address] Chloride [Moles/Vol] 89 mmol/L Low 98-107 [facility] Comment on above: Performed By: #### L [id number] ####[facility] ([facility]ER)[address] [place] [address] CO2 [Moles/Vol] 33 mmol/L High 21-31 [facility] Comment on above: Performed By: #### L [id number] ####[facility] ([facility])[address] [place] [address] Creatinine [Mass/Vol] 1.56 mg/dL High 0.60-1.30 [facility] Comment on above: Performed By: #### L [id number] ####[facility] ([facility])[address] [place] [address] GLOMERULAR FILTRATION RATE ML/MIN/1.73 SQ M.PREDICTED 39.0 mL/min/1.73m*2 Low >60.0 [facility] Comment on above: Result Comment: [facility]???s estimated glomerular filtration rate (eGFR) will no [...] of individuals. Performed By: #### L [id number] ####[facility] ([facility])[address] [place] [address] Glucose [Mass/Vol] 132 mg/dL High 70-100 [facility] Comment on above: Performed By: #### L [id number] ####[facility] ([facility] [place] [address] Potassium [Moles/Vol] 3.4 mmol/L Low 3.5-5.1 [facility] Comment on above: Performed By: #### L [id number] ####[facility] (BEAKER)[address] [place] [address] Sodium [Moles/Vol] 130 mmol/L Low 136-145 [facility] Comment on above: Performed By: #### L [id number] ####[facility] (BEAKER)[address] [place] [address] Urea nitrogen [Mass/Vol] 34 mg/dL High 7-25 [facility] Comment on above: Performed By: #### L [id number] ####[facility] (BEAKER)[address] [place] [address] UREA NITROGEN/CREATININE (MASS RATIO) IN SER/PLAS 21.8 Normal [facility] Comment on above: Performed By: #### L [id number] ####[facility] (BEAKER)[address] [place] [address] CBCon 05-31-2023 Erythrocyte distribution width (RBC) [Ratio] 14.1 % Normal 11.5-15.0 [facility] Comment on above: Performed By: #### L [id number] ####[facility] ([facility] [place] [address] ERYTHROCYTE MEAN CORPUSCULAR HEMOGLOBIN CONCENTRATION (G/DL) BY AUTOMATED 32.9 g/dL Normal 32.0-35.0 [facility] Comment on above: Performed By: #### L [id number] ####[facility] ([facility])[address] [place] [address] Hematocrit (Bld) [Volume fraction] 27.7 % Low 36.0-55.0 [facility] Comment on above: Performed By: #### L [id number] ####[facility] ([facility])[address] [place] [address] Hemoglobin (Bld) [Mass/Vol] 9.1 g/dL Low 12.0-17.0 [facility] Comment on above: Performed By: #### L [id number] ####[facility] ([facility] [place] [address] MCH (RBC) [Entitic mass] 27.0 pg Normal 27.0-33.0 [facility] Comment on above: Performed By: #### L [id number] ####[facility] ([facility] [place] [address] MCV (RBC) [Entitic vol] 82.2 fL Normal 82.0-98.0 [facility] Comment on above: Performed By: #### L [id number] ####[facility] ([facility] [place] [address] PLATELETS (10*3/UL) IN BLOOD AUTOMATED COUNT 175 10*3/uL Normal 150-400 [facility] Comment on above: Performed By: #### L [id number] ####[facility] (BEAKER)[address] [place] [address] RBC (Bld) [#/Vol] 3.37 10*6/uL Low 3.80-5.70 [facility] Comment on above: Performed By: #### L [id number] ####[facility] (BEAKER)[address] [place] [address] WBC (Bld) [#/Vol] 9.59 10*3/uL Normal 4.00-10.60 [facility] Comment on above: Performed By: #### L [id number] ####[facility] [place] [address] CO-OXIMETRYon 05-31-2023 CARBOXYHEMOGLOBIN/HE MOGLOBIN TOTAL % IN BLOOD 0.8 % Normal [facility] Comment on above: Performed By: #### L [id number] ####[facility] RESPIRATORY [id number] [place] [address] [facility] Hemoglobin (Bld) [Mass/Vol] 9.1 g/dL Normal [facility] Comment on above: Performed By: #### L [id number] ####[facility] RESPIRATORY [id number] [place] [address] [facility] METHEMOGLOBIN/100 IN BLOOD 0.7 % Normal 0.0-1.5 [facility] Comment on above: Performed By: #### L [id number] ####[facility] RESPIRATORY [id number] [place] [address] [facility] Oxygen saturation in Blood 48.9 % [facility] Comment on above: Performed By: #### L [id number] ####[facility] RESPIRATORY [id number] [place] [address] [facility] OXYGENATED HEMOGLOBIN IN BLOOD 48.2 % Normal [facility] Comment on above: Performed By: #### L [id number] ####[facility] RESPIRATORY [id number] [place] [address] [place] CONSULTon 05-31-2023 CONSULT [facility] HPon 05-31-2023 HP [facility] MAGNESIUMon 05-31-2023 Magnesium [Mass/Vol] 2.1 mg/dL Normal 1.9-2.7 [facility] Comment on above: Performed By: #### L [id number] ####[facility] LAB ([facility])[address] [place] [address] PHOSPHORUSon 05-31-2023 Magnesium [Mass/Vol] 3.4 mg/dL Normal 2.5-5.0 [facility] Comment on above: Performed By: #### L [id number] ####[facility] ([facility])[address] [place] [address] POCT GLUCOSE METER UNSOLICIT ED RESULTSon 05-31-2023 Glucose [Mass/Vol] 197 mg/dL High 70-105 [facility] Comment on above: Order Comment: Waive d Testing in the ED is performed under the ED CLIA certificate #[id number]. Result Comment: [email or web address] Performed By: #### L [id number] ####[facility] ([facility])[address] [place] [address] Glucose [Mass/Vol] 123 mg/dL High 70-105 [facility] Comment on above: Order Comment: Waive d Testing in the ED is performed under the ED CLIA certificate #[id number]. Result Comment: [email or web address] Performed By: #### L [id number] ####[facility] ([facility])[address] [place] [address] Glucose [Mass/Vol] 119 mg/dL High 70-105 [facility] Comment on above: Order Comment: Waive d Testing in the ED is performed under the ED CLIA certificate #[id number]. Result Comment: [email or web address] Performed By: #### L [id number] ####[facility] ([facility])[address] [place] [address] Glucose [Mass/Vol] 132 mg/dL High 70-105 [facility] Comment on above: Order Comment: Waive d Testing in the ED is performed under the ED CLIA certificate #[id number]. Result Comment: [email or web address] Performed By: #### L [id number] ####[facility] ([facility])[address] [place] [address] 30on 05-30-2023 30 The patient is Moderately Unstable - Medium risk of patient condition declining or worsening The patient's goals for the shift include pain control The clinical goals for the shift include pain control and stable vitals Normal [facility] 30 Normal [facility] BASIC METABOLIC PANELon 08 Anion gap [Moles/Vol] 14 mmol/L Normal 7-20 [facility] Comment on above: Performed By: #### L [id number] ####[facility] [place] [address] Calcium [Mass/Vol] 8.2 mg/dL Low 8.6-10.3 [facility] Comment on above: Performed By: #### L [id number] ####[facility] ([facility])[address] [place] [address] Chloride [Moles/Vol] 93 mmol/L Low 98-107 [facility] Comment on above: Performed By: #### L [id number] ####[facility] ([facility])[address] [place] [address] CO2 [Moles/Vol] 26 mmol/L Normal 21-31 [facility] Comment on above: Performed By: #### L [id number] ####[facility] ([facility])[address] [place] [address] Creatinine [Mass/Vol] 1.10 mg/dL Normal 0.60-1.30 [facility] Comment on above: Performed By: #### L [id number] ####[facility] ([facility])[address] [place] [address] GLOMERULAR FILTRATION RATE ML/MIN/1.73 SQ M.PREDICTED 59.3 mL/min/1.73m*2 Low >60.0 [facility] Comment on above: Result Comment: The [facility]???s estimated glomerular filtration rate (eGFR) will no [...] of individuals. Performed By: #### L [id number] ####[facility] ([facility])[address] [place] [address] Glucose [Mass/Vol] 187 mg/dL High 70-100 [facility] Comment on above: Performed By: #### L [id number] ####[facility] ([facility])[address] [place] [address] Potassium [Moles/Vol] 3.5 mmol/L Normal 3.5-5.1 [facility] Comment on above: Performed By: #### L [id number] ####[facility] ([facility])[address] [place] [address] Sodium [Moles/Vol] 129 mmol/L Low 136-145 [facility] Comment on above: Performed By: #### L [id number] ####[facility] ([facility])[address] [place] [address] Urea nitrogen [Mass/Vol] 20 mg/dL Normal 7-25 [facility] Comment on above: Performed By: #### L [id number] ####[facility] ([facility])[address] [place] [address] UREA NITROGEN/CREATININE (MASS RATIO) IN SER/PLAS 18.2 Normal [facility] Comment on above: Performed By: #### L [id number] ####[facility] ([facility])[address] [place] [address] CBCon 05-30-2023 Erythrocyte distribution width (RBC) [Ratio] 14.4 % Normal 11.5-15.0 [facility] Comment on above: Performed By: #### L [id number] ####[facility] ([facility])[address] [place] [address] ERYTHROCYTE MEAN CORPUSCULAR HEMOGLOBIN CONCENTRATION (G/DL) BY AUTOMATED 33.1 g/dL Normal 32.0-35.0 [facility] Comment on above: Performed By: #### L [id number] ####[facility] ([facility])[address] [place] [address] Hematocrit (Bld) [Volume fraction] 29.9 % Low 36.0-55.0 [facility] Comment on above: Performed By: #### L [id number] ####[facility] ([facility])[address] [place] [address] Hemoglobin (Bld) [Mass/Vol] 9.9 g/dL Low 12.0-17.0 [facility] Comment on above: Performed By: #### L [id number] ####[facility] ([facility])[address] [place] [address] MCH (RBC) [Entitic mass] 27.4 pg Normal 27.0-33.0 [facility] Comment on above: Performed By: #### L [id number] ####[facility] ([facility])[address] [place] [address] MCV (RBC) [Entitic vol] 82.8 fL Normal 82.0-98.0 [facility] Comment on above: Performed By: #### L [id number] ####[facility] ([facility])[address] [place] [address] PLATELETS (10*3/UL) IN BLOOD AUTOMATED COUNT 126 10*3/uL Low 150-400 [facility] Comment on above: Performed By: #### L [id number] ####[facility] ([facility])[address] [place] [address] RBC (Bld) [#/Vol] 3.61 10*6/uL Low 3.80-5.70 [facility] Comment on above: Performed By: #### L [id number] ####[facility] ([facility])[address] [place] [address] WBC (Bld) [#/Vol] 10.66 10*3/uL High 4.00-10.60 [facility] Comment on above: Performed By: #### L [id number] ####[facility] ([facility])[address] [place] [address] MAGNESIUMon 05-30-2023 Magnesium [Mass/Vol] 1.9 mg/dL Normal 1.9-2.7 [facility] Comment on above: Performed By: #### L [id number] ####[facility] ([facility])[address] [place] [address] Magnesium [Mass/Vol] 2.0 mg/dL Normal 1.9-2.7 [facility] Comment on above: Performed By: #### L [id number] ####[facility] ([facility])[address] [place] [address] PHOSPHORUSon 05-30-2023 Magnesium [Mass/Vol] 2.6 mg/dL Normal 2.5-5.0 [facility] Comment on above: Performed By: #### L [id number] ####[facility] ([facility])[address] [place] [address] POCT GLUCOSE METER UNSOLICIT ED RESULTSon 05-30-2023 Glucose [Mass/Vol] 154 mg/dL High 70-105 [facility] Comment on above: Order Comment: Waive d Testing in the ED is performed under the ED CLIA certificate #[id number]. Result Comment: [email or web address] Performed By: #### L [id number] ####[facility] ([facility])[address] [place] [address] Glucose [Mass/Vol] 175 mg/dL High 70-105 [facility] Comment on above: Order Comment: Waive d Testing in the ED is performed under the ED CLIA certificate #[id number]. Result Comment: [email or web address] Performed By: #### L [id number] ####[facility] ([facility])[address] [place] [address] Glucose [Mass/Vol] 207 mg/dL High 70-105 [facility] Comment on above: Order Comment: Waive d Testing in the ED is performed under the ED CLIA certificate #[id number]. Result Comment: [email or web address] Performed By: #### L [id number] ####[facility] ([facility])[address] [place] [address] Glucose [Mass/Vol] 172 mg/dL High 70-105 [facility] Comment on above: Order Comment: Waive d Testing in the ED is performed under the ED CLIA certificate #[id number]. Result Comment: [email or web address] Performed By: #### L [id number] ####[facility] ([facility])[address] [place] [address] POTASSIUMon 05-30-2023 Potassium [Moles/Vol] 3.4 mmol/L Low 3.5-5.1 [facility] Comment on above: Performed By: #### L [id number] ####[facility] ([facility])[address] [place] [address] 30on 05-29-2023 30 Normal [facility] 30 Normal [facility] BASIC METABOLIC PANELon 05-06 Anion gap [Moles/Vol] 12 mmol/L Normal 7-20 [facility] Comment on above: Performed By: #### L [id number] ####[facility] ([facility])[address] [place] [address] Calcium [Mass/Vol] 8.5 mg/dL Low 8.6-10.3 [facility] Comment on above: Performed By: #### L [id number] ####[facility] ([facility])[address] [place] [address] Chloride [Moles/Vol] 94 mmol/L Low 98-107 [facility] Comment on above: Performed By: #### L [id number] ####[facility] ([facility])[address] [place] [address] CO2 [Moles/Vol] 26 mmol/L Normal 21-31 [facility] Comment on above: Performed By: #### L [id number] ####[facility] ([facility])[address] [place] [address] Creatinine [Mass/Vol] 1.13 mg/dL Normal 0.60-1.30 [facility] Comment on above: Performed By: #### L [id number] ####[facility] ([facility])[address] [place] [address] GLOMERULAR FILTRATION RATE ML/MIN/1.73 SQ M.PREDICTED 57.5 mL/min/1.73m*2 Low >60.0 [facility] Comment on above: Result Comment: [facility]???s estimated glomerular filtration rate (eGFR) will no [...] of individuals. Performed By: #### L [id number] ####[facility] ([facility])[address] [place] [address] Glucose [Mass/Vol] 196 mg/dL High 70-100 [facility] Comment on above: Performed By: #### L [id number] ####[facility] ([facility])[address] [place] [address] Potassium [Moles/Vol] 3.9 mmol/L Normal 3.5-5.1 [facility] Comment on above: Performed By: #### L [id number] ####[facility] ([facility])[address] [place] [address] Sodium [Moles/Vol] 128 mmol/L Low 136-145 [facility] Comment on above: Performed By: #### L [id number] ####[facility] ([facility])[address] [place] [address] Urea nitrogen [Mass/Vol] 21 mg/dL Normal 7-25 [facility] Comment on above: Performed By: #### L [id number] ####[facility] ([facility])[address] [place] [address] UREA NITROGEN/CREATININE (MASS RATIO) IN SER/PLAS 18.6 Normal [facility] Comment on above: Performed By: #### L [id number] ####[facility] ([facility])[address] [place] [address] Anion gap [Moles/Vol] 10 mmol/L Normal 7-20 [facility] Comment on above: Performed By: #### L [id number] ####[facility] ([facility])[address] [place] [address] Calcium [Mass/Vol] 8.5 mg/dL Low 8.6-10.3 [facility] Comment on above: Performed By: #### L [id number] ####[facility] ([facility])[address] [place] [address] Chloride [Moles/Vol] 96 mmol/L Low 98-107 [facility] Comment on above: Performed By: #### L [id number] ####[facility] ([facility])[address] [place] [address] CO2 [Moles/Vol] 28 mmol/L Normal 21-31 [facility] Comment on above: Performed By: #### L [id number] ####[facility] ([facility])[address] [place] [address] Creatinine [Mass/Vol] 1.22 mg/dL Normal 0.60-1.30 [facility] Comment on above: Performed By: #### L [id number] ####[facility] ([facility])[address] [place] [address] GLOMERULAR FILTRATION RATE ML/MIN/1.73 SQ M.PREDICTED 52.4 mL/min/1.73m*2 Low >60.0 [facility] Comment on above: Result Comment: [facility]???s estimated glomerular filtration rate (eGFR) will no [...] of individuals. Performed By: #### L [id number] ####[facility] ([facility])[address] [place] [address] Glucose [Mass/Vol] 204 mg/dL High 70-100 [facility] Comment on above: Performed By: #### L [id number] ####[facility] ([facility])[address] [place] [address] Potassium [Moles/Vol] 4.1 mmol/L Normal 3.5-5.1 [facility] Comment on above: Performed By: #### L [id number] ####[facility] ([facility])[address] [place] [address] Sodium [Moles/Vol] 130 mmol/L Low 136-145 [facility] Comment on above: Performed By: #### L [id number] ####[facility])[address] [place] [address] Urea nitrogen [Mass/Vol] 21 mg/dL Normal 7-25 [facility] Comment on above: Performed By: #### L [id number] ####[facility])[address] [place] [address] UREA NITROGEN/CREATININE (MASS RATIO) IN SER/PLAS 17.2 Normal [facility] Comment on above: Performed By: #### L [id number] ####[facility] ([facility])[address] [place] [address] CBCon 05-29-2023 Erythrocyte distribution width (RBC) [Ratio] 14.6 % Normal 11.5-15.0 [facility] Comment on above: Performed By: #### L [id number] ####[facility] ([facility])[address] [place] [address] ERYTHROCYTE MEAN CORPUSCULAR HEMOGLOBIN CONCENTRATION (G/DL) BY AUTOMATED 33.3 g/dL Normal 32.0-35.0 [facility] Comment on above: Performed By: #### L [id number] ####[facility] ([facility])[address] [place] [address] Hematocrit (Bld) [Volume fraction] 32.1 % Low 36.0-55.0 [facility] Comment on above: Performed By: #### L [id number] ####[facility] ([facility])[address] [place] [address] Hemoglobin (Bld) [Mass/Vol] 10.7 g/dL Low 12.0-17.0 [facility] Comment on above: Performed By: #### L [id number] ####[facility] ([facility])[address] [place] [address] MCH (RBC) [Entitic mass] 27.8 pg Normal 27.0-33.0 [facility] Comment on above: Performed By: #### L [id number] ####[facility] ([facility])[address] [place] [address] MCV (RBC) [Entitic vol] 83.4 fL Normal 82.0-98.0 [facility] Comment on above: Performed By: #### L [id number] ####[facility] ([facility])[address] [place] [address] PLATELETS (10*3/UL) IN BLOOD AUTOMATED COUNT 135 10*3/uL Low 150-400 [facility] Comment on above: Performed By: #### L [id number] ####[facility] ([facility])[address] [place] [address] RBC (Bld) [#/Vol] 3.85 10*6/uL Normal 3.80-5.70 [facility] Comment on above: Performed By: #### L [id number] ####[facility] ([facility])[address] [place] [address] WBC (Bld) [#/Vol] 15.57 10*3/uL High 4.00-10.60 [facility] Comment on above: Performed By: #### L [id number] ####[facility] ([facility])[address] [place] [address] CONSULTon 05-29-2023 CONSULT Normal [facility] MAGNESIUMon 05-29-2023 Magnesium [Mass/Vol] 1.9 mg/dL Normal 1.9-2.7 [facility] Comment on above: Performed By: #### L [id number] ####[facility] ([facility])[address] [place] [address] Magnesium [Mass/Vol] 1.9 mg/dL Normal 1.9-2.7 [facility] Comment on above: Performed By: #### L [id number] ####[facility] ([facility])[address] [place] [address] PHOSPHORUSon 05-29-2023 Magnesium [Mass/Vol] 3.0 mg/dL Normal 2.5-5.0 [facility] Comment on above: Performed By: #### L [id number] ####[facility] ([facility])[address] [place] [address] POCT GLUCOSE METER UNSOLICIT ED RESULTSon 05-29-2023 Glucose [Mass/Vol] 202 mg/dL High 70-105 [facility] Comment on above: Order Comment: Waive d Testing in the ED is performed under the ED CLIA certificate #[id number]. Result Comment: [email or web address] Performed By: #### L [id number] ####[facility] ([employer])[address] [place] [address] Glucose [Mass/Vol] 185 mg/dL High 70-105 [facility] Comment on above: Order Comment: Waive d Testing in the ED is performed under the ED CLIA certificate #[id number]. Result Comment: [email or web address] Performed By: #### L [id number] ####[facility] ([facility])[address] [place] [address] Glucose [Mass/Vol] 171 mg/dL High 70-105 [facility] Comment on above: Order Comment: Waive d Testing in the ED is performed under the ED CLIA certificate #[id number]. Result Comment: [email or web address] Performed By: #### L [id number] ####[facility] ([facility])[address] [place] [address] Glucose [Mass/Vol] 181 mg/dL High 70-105 [facility] Comment on above: Order Comment: Waive d Testing in the ED is performed under the ED CLIA certificate #[id number]. Result Comment: [email or web address] Performed By: #### L [id number] ####[facility] ([facility])[address] [place] [address] 30on 05-28-2023 30 Normal [facility] APTTon 05-28-2023 ACTIVATED PARTIAL THROMBOPLASTIN TIME IN PPP BY COAGULATION ASSAY 28.3 Seconds Normal 25.0-35.0 [facility] Comment on above: Result Comment: Clin ical significance of the APTT is questionable in the presence of heparin. Performed By: #### L [id number] ####[facility] ([facility])[address] [place] [address] ARTERIAL BLOOD GAS WITH IONI ZED CALCIUMon 05-28-2023 Base excess Calc (Bld) [Moles/Vol] 0.7 mmol/L Normal -2.0-3.0 [facility] Comment on above: Performed By: #### L [id number] ####[facility] [id number] [place] [address] [place] CALCIUM IONIZED (MMOL/L) IN BLOOD 1.06 mmol/L Low 1.15-1.33 [facility] Comment on above: Performed By: #### L [id number] ####[facility] [id number] [place] [address] [place] CO2 (Bld) [Partial pressure] 40 mm[Hg] Normal 35-48 [facility] Comment on above: Performed By: #### L [id number] ####[facility] [id number] [place] [address] [facility] HCO3 (Bld) [Moles/Vol] 25.4 mmol/L Normal 21.0-28.0 [facility] Comment on above: Performed By: #### L [id number] ####[facility] [id number] [place] [address] [facility] LPM 15 Normal [facility] Comment on above: Performed By: #### L [id number] ####[facility] [id number] [place] [address] [facility] Oxygen (Bld) [Partial pressure] 61 mm[Hg] Low 83-100 [facility] Comment on above: Performed By: #### L [id number] ####[facility] [id number] [place], [place] [address] OXYGEN SATURATION (%) IN ARTERIAL BLOOD 93.4 % Low 94.0-98.0 [facility] Comment on above: Performed By: #### L [id number] ####[facility] [id number] [place], [place] [address] pH (Bld) 7.41 [pH] Normal 7.35-7.45 [facility] Comment on above: Performed By: #### L [id number] ####[facility] [id number] [place], [place] [address] SOURCE OF OXYGEN SALTER Normal [facility] Comment on above: Performed By: #### L [id number] ####[facility] [id number] [place] [address] [facility] Base excess Calc (Bld) [Moles/Vol] 1.5 mmol/L Normal -2.0-3.0 [facility] Comment on above: Order Comment: CPAP +10 Performed By: #### L [id number] ####[facility] [id number] [place] [address] [facility] CALCIUM IONIZED (MMOL/L) IN BLOOD 1.13 mmol/L Low 1.15-1.33 [facility] Comment on above: Order Comment: CPAP +10 Performed By: #### L [id number] ####[facility] [id number] [place] [address] [facility] CO2 (Bld) [Partial pressure] 43 mm[Hg] Normal 35-48 [facility] Comment on above: Order Comment: CPAP +10 Performed By: #### L [id number] ####[facility] [id number] [place] [address] [facility] FIO2 50 % Normal [facility] Comment on above: Order Comment: CPAP +10 Performed By: #### L [id number] ####[facility] [id number] [place] [address] [facility] HCO3 (Bld) [Moles/Vol] 26.6 mmol/L Normal 21.0-28.0 [facility] Comment on above: Order Comment: CPAP +10 Performed By: #### L [id number] ####[facility] [id number] [place] [address] [facility] Oxygen (Bld) [Partial pressure] 81 mm[Hg] Low 83-100 [facility] Comment on above: Order Comment: CPAP +10 Performed By: #### L [id number] ####[facility] [id number] [place] [address] [facility] OXYGEN SATURATION (%) IN ARTERIAL BLOOD 97.8 % Normal 94.0-98.0 [facility] Comment on above: Order Comment: CPAP +10 Performed By: #### L [id number] ####[facility] RES[facility] [id number] [place] [address] [facility] pH (Bld) 7.40 [pH] Normal 7.35-7.45 [facility] Comment on above: Order Comment: CPAP +10 Performed By: #### L [id number] ####[facility] RES[facility] [id number] [place] [address] [facility] SOURCE OF OXYGEN [facility]: Order Comment: CPAP +10 Performed By: #### L [id number] ####[facility] RESPIRATORY [id number] [place] [address] [facility] Base excess Calc (Bld) [Moles/Vol] 0.5 mmol/L Normal -2.0-3.0 [facility] Comment on above: Performed By: #### L [id number] ####[facility] RESPIRATORY [id number] [place], [place] [address] CALCIUM IONIZED (MMOL/L) IN BLOOD 1.11 mmol/L Low 1.15-1.33 [facility] Comment on above: Performed By: #### L [id number] ####[facility] RESPIRATORY [id number] [place] [address] [facility] CO2 (Bld) [Partial pressure] 44 mm[Hg] Normal 35-48 [facility] Comment on above: Performed By: #### L [id number] ####[facility] RESPIRATORY [id number] [place] [address] [facility] HCO3 (Bld) [Moles/Vol] 26.0 mmol/L Normal 21.0-28.0 [facility] Comment on above: Performed By: #### L [id number] ####[facility] RESPIRATORY [id number] [place] [address] [facility] LPM 6 Normal [facility] Comment on above: Performed By: #### L [id number] ####[facility] RESPIRATORY [id number] [place] [address] [facility] Oxygen (Bld) [Partial pressure] 62 mm[Hg] Low 83-100 [facility] Comment on above: Performed By: #### L [id number] ####[facility] RESPIRATORY [id number] [place] [address] [facility] OXYGEN SATURATION (%) IN ARTERIAL BLOOD 92.6 % Low 94.0-98.0 [facility] Comment on above: Performed By: #### L [id number] ####[facility] RESPIRATORY [id number] [place] [address] [facility] pH (Bld) 7.38 [pH] Normal 7.35-7.45 [facility] Comment on above: Performed By: #### L [id number] ####[facility] RESPIRATORY [id number] [place] [address] [facility] SOURCE OF OXYGEN Nasal cannula Normal [facility] Comment on above: Performed By: #### L [id number] ####[facility] RESPIRATORY [id number] [place] [address] [place] BASIC METABOLIC PANELon 08-2 Anion gap [Moles/Vol] 10 mmol/L Normal 7-20 [facility] Comment on above: Performed By: #### L [id number] ####[facility] LAB ([facility])[address] [place] [address] Calcium [Mass/Vol] 8.6 mg/dL Normal 8.6-10.3 [facility] Comment on above: Performed By: #### L [id number] ####[facility] LAB ([facility])[address] [place] [address] Chloride [Moles/Vol] 108 mmol/L High 98-107 [facility] Comment on above: Performed By: #### L [id number] ####[facility] LAB ([facility])[address] [place] [address] CO2 [Moles/Vol] 28 mmol/L Normal 21-31 [facility] Comment on above: Performed By: #### L [id number] ####[facility] LAB ([facility])[address] [place] [address] Creatinine [Mass/Vol] 1.21 mg/dL Normal 0.60-1.30 [facility] Comment on above: Performed By: #### L [id number] ####[facility] LAB ([facility])[address] [place] [address] GLOMERULAR FILTRATION RATE ML/MIN/1.73 SQ M.PREDICTED 52.9 mL/min/1.73m*2 Low >60.0 [facility] Comment on above: Result Comment: [facility]???s estimated glomerular filtration rate (eGFR) will no [...] of individuals. Performed By: #### L [id number] ####[facility] LAB ([facility])[address] [place] [address] Glucose [Mass/Vol] 100 mg/dL Normal 70-100 [facility] Comment on above: Performed By: #### L [id number] ####[facility] ([facility])[address] [place] [address] Potassium [Moles/Vol] 3.7 mmol/L Normal 3.5-5.1 [facility] Comment on above: Performed By: #### L [id number] ####[facility] ([facility])[address] [place] [address] Sodium [Moles/Vol] 142 mmol/L Normal 136-145 [facility] Comment on above: Performed By: #### L [id number] ####[facility] LAB ([facility])[address] [place] [address] Urea nitrogen [Mass/Vol] 18 mg/dL Normal 7-25 [facility] Comment on above: Performed By: #### L [id number] ####[facility] ([facility])[address] [place] [address] UREA NITROGEN/CREATININE (MASS RATIO) IN SER/PLAS 14.9 Normal [facility] Comment on above: Performed By: #### L [id number] ####[facility] ([facility])[address] [place] [address] CBCon 05-28-2023 Erythrocyte distribution width (RBC) [Ratio] 14.6 % Normal 11.5-15.0 [facility] Comment on above: Performed By: #### L [id number] ####[facility] ([facility])[address] [place] [address] ERYTHROCYTE MEAN CORPUSCULAR HEMOGLOBIN CONCENTRATION (G/DL) BY AUTOMATED 33.4 g/dL Normal 32.0-35.0 [facility] Comment on above: Performed By: #### L [id number] ####[facility] [place] [address] Hematocrit (Bld) [Volume fraction] 32.9 % Low 36.0-55.0 [facility] Comment on above: Performed By: #### L [id number] ####[facility] ([facility])[address] [place] [address] Hemoglobin (Bld) [Mass/Vol] 11.0 g/dL Low 12.0-17.0 [facility] Comment on above: Performed By: #### L [id number] ####[facility] ([facility])[address] [place] [address] MCH (RBC) [Entitic mass] 27.6 pg Normal 27.0-33.0 [facility] Comment on above: Performed By: #### L [id number] ####[facility] ([facility])[address] [place] [address] MCV (RBC) [Entitic vol] 82.5 fL Normal 82.0-98.0 [facility] Comment on above: Performed By: #### L [id number] ####[facility] ([facility])[address] [place] [address] PLATELETS (10*3/UL) IN BLOOD AUTOMATED COUNT 151 10*3/uL Normal 150-400 [facility] Comment on above: Performed By: #### L [id number] ####[facility] ([facility])[address] [place] [address] RBC (Bld) [#/Vol] 3.99 10*6/uL Normal 3.80-5.70 [facility] Comment on above: Performed By: #### L [id number] ####[facility] [place] [address] WBC (Bld) [#/Vol] 11.65 10*3/uL High 4.00-10.60 [facility] Comment on above: Performed By: #### L [id number] ####[facility] HOSP[facility] LAB ([facility])[address] [place] [address] CO-OXIMETRYon 05-28-2023 CARBOXYHEMOGLOBIN/HE MOGLOBIN TOTAL % IN BLOOD 1.3 % Normal [facility] Comment on above: Performed By: #### L [id number] ####[facility] RESPIRATORY [id number] [place] [address] [place] Hemoglobin (Bld) [Mass/Vol] 11.3 g/dL Normal [facility] Comment on above: Performed By: #### L [id number] ####[facility] RESPIRATORY [id number] [place] [address] [place] METHEMOGLOBIN/100 IN BLOOD 0.8 % Normal 0.0-1.5 [facility] Comment on above: Performed By: #### L [id number] ####[facility] RESPIRATORY [id number] [place] [address] [place] Oxygen saturation in Blood 60.1 % Normal [facility] Comment on above: Performed By: #### L [id number] ####[facility] RESPIRATORY [id number] [place] [address] [place] OXYGENATED HEMOGLOBIN IN BLOOD 58.8 % Normal [facility] Comment on above: Performed By: #### L [id number] ####[facility] RESPIRATORY [id number] [place] [address] [place] CONSULTon 05-28-2023 CONSULT Normal [facility] LACTIC ACID, PLASMAon 2022 LACTATE (MMOL/L) IN SER/PLAS 1.6 mmol/L Normal 0.5-2.2 [facility] Comment on above: Performed By: #### L [id number] ####[facility]OSP[facility] LAB ([facility])[address] [facility] [place] [address] LIPID PANELon 05-28-2023 CHOL/HDL 4.3 mg/dL Normal [facility] Comment on above: Performed By: #### L [id number] ####[facility] LAB ([facility])[address] [place] [address] Cholesterol [Mass/Vol] 111 mg/dL Low 120-200 [facility] Comment on above: Performed By: #### L [id number] ####[facility] LAB ([facility])[address] [place] [address] Magnesium [Mass/Vol] 128 mg/dL Normal 40-149 [facility] Comment on above: Result Comment: TRIG LYCERIDE REFERENCE RANGE:20 YEARS AND OLDER CARDIOVASCULAR RISKLESS THAN 150 mg/dL LOW [id number] TO 199 mg/dL BORDERLINE [id number] mg/dL AND GREATER HIGH RISK Performed By: #### L [id number] ####[facility] ([facility] [place] [address] Magnesium [Mass/Vol] 59 mg/dL Normal 0-160 [facility] Comment on above: Performed By: #### L [id number] ####[facility] ([facility] [place] [address] Magnesium [Mass/Vol] 26 mg/dL Normal 23-92 [facility] Comment on above: Performed By: #### L [id number] ####[facility] ([facility])[address] [place] [address] NON HDL CHOL. (LDL+VLDL) 85 Normal [facility] Comment on above: Performed By: #### L [id number] ####[facility] LAB (BE[facility]ER)[address] [place] [address] TOTAL VLDL-C 26 mg/dL Normal 0-40 [facility] Comment on above: Performed By: #### L [id number] ####[facility] LAB (BEAKER)[address] [place] [address] MAGNESIUMon 05-28-2023 Magnesium [Mass/Vol] 1.9 mg/dL Normal 1.9-2.7 [facility] Comment on above: Performed By: #### L [id number] ####[facility] LAB (BEAKER)[address] [place] [address] PHOSPHORUSon 05-28-2023 Magnesium [Mass/Vol] 3.9 mg/dL Normal 2.5-5.0 [facility] Comment on above: Performed By: #### L [id number] ####[facility] ([facility])[address] [place] [address] POCT GLUCOSE METER UNSOLICIT ED RESULTSon 05-28-2023 Glucose [Mass/Vol] 194 mg/dL High 70-105 [facility] Comment on above: Order Comment: Waive d Testing in the ED is performed under the ED CLIA certificate #[id number]. Result Comment: [email or web address] Performed By: #### L [id number] ####[facility] LAB ([facility])[address] [place] [address] Glucose [Mass/Vol] 170 mg/dL High 70-105 [facility] Comment on above: Order Comment: Waive d Testing in the ED is performed under the ED CLIA certificate #[id number]. Result Comment: jgig and Performed By: #### L [id number] ####[facility] ([facility])[address] [place] [address] Glucose [Mass/Vol] 121 mg/dL High 70-105 [facility] Comment on above: Order Comment: Waive d Testing in the ED is performed under the ED CLIA certificate #[id number]. Result Comment: jgig and Performed By: #### L [id number] ####[facility] ([facility])[address] [place] [address] Glucose [Mass/Vol] 132 mg/dL High 70-105 [facility] Comment on above: Order Comment: Waive d Testing in the ED is performed under the ED CLIA certificate #[id number]. Result Comment: jgig and Performed By: #### L [id number] ####[facility] ([facility])[address] [place] [address] Glucose [Mass/Vol] 127 mg/dL High 70-105 [facility] Comment on above: Order Comment: Waive d Testing in the ED is performed under the ED CLIA certificate #[id number]. Result Comment: jgig and Performed By: #### L [id number] ####[facility] LAB ([facility])[address] [place] [address] Glucose [Mass/Vol] 128 mg/dL High 70-105 [facility] Comment on above: Order Comment: Waive d Testing in the ED is performed under the ED CLIA certificate #[id number]. Result Comment: jgig and Performed By: #### L [id number] ####[facility] ([facility])[address] [place] [address] Glucose [Mass/Vol] 134 mg/dL High 70-105 [facility] Comment on above: Order Comment: Waive d Testing in the ED is performed under the ED CLIA certificate #[id number]. Result Comment: jgig and Performed By: #### L [id number] ####[facility] ([facility])[address] [place] [address] Glucose [Mass/Vol] 114 mg/dL High 70-105 [facility] Comment on above: Order Comment: Waive d Testing in the ED is performed under the ED CLIA certificate #[id number]. Result Comment: jgig and Performed By: #### L [id number] ####[facility] ([facility])[address] [place] [address] Glucose [Mass/Vol] 110 mg/dL High 70-105 [facility] Comment on above: Order Comment: Waive d Testing in the ED is performed under the ED CLIA certificate #[id number]. Result Comment: jgig and Performed By: #### L [id number] ####[facility] ([facility])[address] [place] [address] Glucose [Mass/Vol] 127 mg/dL High 70-105 [facility] Comment on above: Order Comment: Waive d Testing in the ED is performed under the ED CLIA certificate #[id number]. Result Comment: ebol tz Performed By: #### L [id number] ####[facility] ([facility])[address] [place] [address] Glucose [Mass/Vol] 105 mg/dL Normal 70-105 [facility] Comment on above: Order Comment: Waive d Testing in the ED is performed under the ED CLIA certificate #[id number]. Result Comment: ebol tz Performed By: #### L [id number] ####[facility] LAB ([facility])[address] [place] [address] Glucose [Mass/Vol] 90 mg/dL Normal 70-105 [facility] Comment on above: Order Comment: Waive d Testing in the ED is performed under the ED CLIA certificate #[id number]. Result Comment: ebol tz Performed By: #### L [id number] ####[facility] ([facility])[address] [place] [address] Glucose [Mass/Vol] 90 mg/dL Normal 70-105 [facility] Comment on above: Order Comment: Waive d Testing in the ED is performed under the ED CLIA certificate #[id number]. Result Comment: ebol tz Performed By: #### L [id number] ####[facility] LAB ([facility])[address] [place] [address] Glucose [Mass/Vol] 100 mg/dL Normal 70-105 [facility] Comment on above: Order Comment: Waive d Testing in the ED is performed under the ED CLIA certificate #[id number]. Result Comment: ebol tz Performed By: #### L [id number] ####[facility] ([facility])[address] [place] [address] Glucose [Mass/Vol] 118 mg/dL High 70-105 [facility] Comment on above: Order Comment: Waive d Testing in the ED is performed under the ED CLIA certificate #[id number]. Result Comment: ebol tz Performed By: #### L [id number] ####[facility] LAB ([facility])[address] [place] [address] Glucose [Mass/Vol] 114 mg/dL High 70-105 [facility] Comment on above: Order Comment: Waive d Testing in the ED is performed under the ED CLIA certificate #[id number]. Result Comment: ebol tz Performed By: #### L [id number] ####[facility] LAB ([place])[address] [place] [address] Glucose [Mass/Vol] 112 mg/dL High 70-105 [facility] Comment on above: Order Comment: Waive d Testing in the ED is performed under the ED CLIA certificate #[id number]. Result Comment: ebol tz Performed By: #### L [id number] ####[facility] LAB ([facility])[address] [place] [address] PROTIME-INRon 05-28-2023 INR IN PPP BY COAGULATION ASSAY 1.18 High 0.90-1.10 [facility] Comment on above: Result Comment: ACCC P [...] CHEST 1995;108:[id number]. Performed By: #### L [id number] ####[facility] LAB ([facility])[address] [place] [address] PROTHROMBIN TIME (PT) IN PPP BY COAGULATION ASSAY 15.1 Seconds High 12.3-14.8 [facility] Comment on above: Performed By: #### L [id number] ####[facility] ([facility])[address] [place] [address] [id number] 05-27-2023 [id number] Normal [facility] ANESon 05-27-2023 ANES Normal [facility] APTTon 05-27-2023 ACTIVATED PARTIAL THROMBOPLASTIN TIME IN PPP BY COAGULATION ASSAY 43.8 Seconds High 25.0-35.0 [facility] Comment on above: Result Comment: Clin ical significance of the APTT is questionable in the presence of heparin. Performed By: #### L [id number] ####[facility] ([facility])[address] [place] [address] ACTIVATED PARTIAL THROMBOPLASTIN TIME IN PPP BY COAGULATION ASSAY 28.0 Seconds Normal 25.0-35.0 [facility] Comment on above: Order Comment: Pre-o p diagnosis:Mitral valve disease [I05.9] Result Comment: Clin ical significance of the APTT is questionable in the presence of heparin. Performed By: #### L [id number] ####[facility] ([facility])[address] [place] [address] ARTERIAL BLOOD GAS WITH CO-O XIMETRYon 05-27-2023 Base excess Calc (Bld) [Moles/Vol] -3.0000 mmol/L Low -2.0-3.0 [facility] Comment on above: Order Comment: CPAP Performed By: #### L [id number] ####[facility] RESPIRATORY [id number] [place] [address] [facility] CARBOXYHEMOGLOBIN/HE MOGLOBIN TOTAL % IN BLOOD 1.6 % Normal 0.0-3.0 [facility] Comment on above: Order Comment: CPAP Performed By: #### L [id number] ####[facility] RESPIRATORY [id number] [place] [address] [place] CO2 (Bld) [Partial pressure] 42 mm[Hg] Normal 35-48 [facility] Comment on above: Order Comment: CPAP Performed By: #### L [id number] ####[facility] RESPIRATORY [id number] [place] [address] [place] DEOXYGENATED HEMOGLOBIN IN BLOOD 3.5 % Normal 1-5 [facility] Comment on above: Order Comment: CPAP Performed By: #### L [id number] ####[facility] RESPIRATORY [id number] [address] [place] [address] [place] FIO2 40 % Normal [facility] Comment on above: Order Comment: CPAP Performed By: #### L [id number] ####[facility] RESPIRATORY [id number] [place] [address] [place] HCO3 (Bld) [Moles/Vol] 22.7 mmol/L Normal 21.0-28.0 [facility] Comment on above: Order Comment: CPAP Performed By: #### L [id number] ####[facility] RESPIRATORY [id number] [place] [address] [facility] Hemoglobin (Bld) [Mass/Vol] 11.7 g/dL Normal 11.7-17.4 [facility] Comment on above: Order Comment: CPAP Performed By: #### L [id number] ####[facility] RESPIRATORY [id number] [place] [address] [facility] METHEMOGLOBIN/100 IN BLOOD 0.9 % Normal 0.0-1.5 [facility] Comment on above: Order Comment: CPAP Performed By: #### L [id number] ####[facility] RESPIRATORY [id number] [place] [address] [facility] Oxygen (Bld) [Partial pressure] 75 mm[Hg] Low 83-100 [facility] Comment on above: Order Comment: CPAP Performed By: #### L [id number] ####[facility] RESPIRATORY [id number] [place] [address] [place] OXYGEN SATURATION (%) IN ARTERIAL BLOOD 96.4 % Normal 94.0-98.0 [facility] Comment on above: Order Comment: CPAP Performed By: #### L [id number] ####[facility] RESPIRATORY [id number] [place] [address] [facility] OXYGENATED HEMOGLOBIN IN BLOOD 94.1 % Normal 90.0-95.0 [facility] Comment on above: Order Comment: CPAP Performed By: #### L [id number] ####[facility] RESPIRATORY [id number] [place] [address] [facility] PEEP 8 cmH2O Normal [facility] Comment on above: Order Comment: CPAP Performed By: #### L [id number] ####[facility] RESPIRATORY [id number] [place] [address] [facility] pH (Bld) 7.34 [pH] Low 7.35-7.45 [facility] Comment on above: Order Comment: CPAP Performed By: #### L [id number] ####[facility] RESPIRATORY [id number] [place] [address] [facility] PRESSURE SUPPORT 10 Normal [facility] Comment on above: Order Comment: CPAP Performed By: #### L [id number] ####[facility] RESPIRATORY [id number] [place] [address] [facility] SOURCE OF OXYGEN Vent Normal [facility] Comment on above: Order Comment: CPAP Performed By: #### L [id number] ####[facility] RESPIRATORY [id number] [place] [address] [facility] ARTERIAL BLOOD GAS WITH IONI ZED CALCIUMon 05-27-2023 Base excess Calc (Bld) [Moles/Vol] -3.8000 mmol/L Low -2.0-3.0 [facility] Comment on above: Performed By: #### L [id number] ####[facility] RESPIRATORY [id number] [place] [address] [facility] CALCIUM IONIZED (MMOL/L) IN BLOOD 1.15 mmol/L Normal 1.15-1.33 [facility] Comment on above: Performed By: #### L [id number] ####[facility] RESPIRATORY [id number] [place] [address] [facility] CO2 (Bld) [Partial pressure] 39 mm[Hg] Normal 35-48 [facility] Comment on above: Performed By: #### L [id number] ####[facility] RESPIRATORY [id number] [place] [address] [facility] HCO3 (Bld) [Moles/Vol] 21.5 mmol/L Normal 21.0-28.0 [facility] Comment on above: Performed By: #### L [id number] ####[facility] RESPIRATORY [id number] [place] [address] [place] LPM 6 Normal [facility] Comment on above: Performed By: #### L [id number] ####[facility] RESPIRATORY [id number] [place] [address] [place] Oxygen (Bld) [Partial pressure] 76 mm[Hg] Low 83-100 [facility] Comment on above: Performed By: #### L [id number] ####[facility] RESPIRATORY [id number] [place] [address] [facility] OXYGEN SATURATION (%) IN ARTERIAL BLOOD 96.1 % Normal 94.0-98.0 [facility] Comment on above: Performed By: #### L [id number] ####[facility] RESPIRATORY [id number] [place] [address] [place] pH (Bld) 7.35 [pH] Normal 7.35-7.45 [facility] Comment on above: Performed By: #### L [id number] ####[facility] RESPIRATORY [id number] [place] [address] [place] SOURCE OF OXYGEN Nasal cannula Normal [facility] Comment on above: Performed By: #### L [id number] ####[facility] RESPIRATORY [id number] [place] [address] [place] BASIC METABOLIC PANELon 08-2 Anion gap [Moles/Vol] 11 mmol/L Normal 7-20 [facility] Comment on above: Performed By: #### L [id number] ####[facility] HOSP[facility] LAB (BEAKER)[address] [place] [address] Calcium [Mass/Vol] 8.4 mg/dL Low 8.6-10.3 [facility] Comment on above: Performed By: #### L [id number] ####[facility] LAB (BEAKER)[address] [place] [address] Chloride [Moles/Vol] 111 mmol/L High 98-107 [facility] Comment on above: Performed By: #### L [id number] ####[facility] LAB (BEAKER)[address] [place] [address] CO2 [Moles/Vol] 23 mmol/L Normal 21-31 [facility] Comment on above: Performed By: #### L [id number] ####[facility] ([facility] [place] [address] Creatinine [Mass/Vol] 1.24 mg/dL Normal 0.60-1.30 [facility] Comment on above: Performed By: #### L [id number] ####[facility] ([facility] [place] [address] GLOMERULAR FILTRATION RATE ML/MIN/1.73 SQ M.PREDICTED 51.4 mL/min/1.73m*2 Low >60.0 [facility] Comment on above: Result Comment: [facility]???s estimated glomerular filtration rate (eGFR) will no [...] of individuals. Performed By: #### L [id number] ####[facility] (BEAKER)[address] [place] [address] Glucose [Mass/Vol] 155 mg/dL High 70-100 [facility] Comment on above: Performed By: #### L [id number] ####[facility] (BEAKER)[address] [place] [address] Potassium [Moles/Vol] 4.5 mmol/L Normal 3.5-5.1 [facility] Comment on above: Performed By: #### L [id number] ####[facility] (BEAKER)[address] [place] [address] Sodium [Moles/Vol] 140 mmol/L Normal 136-145 [facility] Comment on above: Performed By: #### L [id number] ####[facility] ([facility]ER)[address] [place] [address] Urea nitrogen [Mass/Vol] 16 mg/dL Normal 7-25 [facility] Comment on above: Performed By: #### L [id number] ####[facility] ([facility] [place] [address] UREA NITROGEN/CREATININE (MASS RATIO) IN SER/PLAS 12.9 Normal [facility] Comment on above: Performed By: #### L [id number] ####[facility] ([facility] [place] [address] Anion gap [Moles/Vol] 11 mmol/L Normal 7-20 [facility] Comment on above: Order Comment: Pre-o p diagnosis:Mitral valve disease [I05.9] Performed By: #### L [id number] ####[facility] ([facility] [place] [address] Calcium [Mass/Vol] 8.2 mg/dL Low 8.6-10.3 [facility] Comment on above: Order Comment: Pre-o p diagnosis:Mitral valve disease [I05.9] Performed By: #### L [id number] ####[facility] (BEAKER)[address] [place] [address] Chloride [Moles/Vol] 111 mmol/L High 98-107 [facility] Comment on above: Order Comment: Pre-o p diagnosis:Mitral valve disease [I05.9] Performed By: #### L [id number] ####[facility] ([facility]ER)[address] [place] [address] CO2 [Moles/Vol] 23 mmol/L Normal 21-31 [facility] Comment on above: Order Comment: Pre-o p diagnosis:Mitral valve disease [I05.9] Performed By: #### L [id number] ####[facility] (BEAKER)[address] [place] [address] Creatinine [Mass/Vol] 1.23 mg/dL Normal 0.60-1.30 [facility] Comment on above: Order Comment: Pre-o p diagnosis:Mitral valve disease [I05.9] Performed By: #### L [id number] ####[facility] ([facility])[address] [place] [address] GLOMERULAR FILTRATION RATE ML/MIN/1.73 SQ M.PREDICTED 51.9 mL/min/1.73m*2 Low >60.0 [facility] Comment on above: Order Comment: Pre-o p diagnosis:Mitral valve disease [I05.9] Result Comment: [facility]???s estimated glomerular filtration rate (eGFR) will no [...] of individuals. Performed By: #### L [id number] ####[facility] ([facility])[address] [employer] [place] [address] Glucose [Mass/Vol] 172 mg/dL High 70-100 [facility] Comment on above: Order Comment: Pre-o p diagnosis:Mitral valve disease [I05.9] Performed By: #### L [id number] ####[facility] ([facility])[address] [facility] [place] [address] Potassium [Moles/Vol] 3.9 mmol/L Normal 3.5-5.1 [facility] Comment on above: Order Comment: Pre-o p diagnosis:Mitral valve disease [I05.9] Performed By: #### L [id number] ####[facility] ([facility])[address] [place] [address] Sodium [Moles/Vol] 141 mmol/L Normal 136-145 [facility] Comment on above: Order Comment: Pre-o p diagnosis:Mitral valve disease [I05.9] Performed By: #### L [id number] ####[facility] (BEAKER)[address] [place] [address] Urea nitrogen [Mass/Vol] 14 mg/dL Normal 7-25 [facility] Comment on above: Order Comment: Pre-o p diagnosis:Mitral valve disease [I05.9] Performed By: #### L [id number] ####[facility] ([facility])[address] [place] [address] UREA NITROGEN/CREATININE (MASS RATIO) IN SER/PLAS 11.4 Normal [facility] Comment on above: Order Comment: Pre-o p diagnosis:Mitral valve disease [I05.9] Performed By: #### L [id number] ####[facility] ([facility])[address] [place] [address] CALCIUM, IONIZEDon CALCIUM IONIZED (MMOL/L) IN BLOOD 1.12 mmol/L Low 1.15-1.33 [facility] Comment on above: Performed By: #### C ALCIUM, IONIZED ####[facility] RESPIRATORY [id number] [place] [address] [facility] CALCIUM IONIZED (MMOL/L) IN BLOOD 1.13 mmol/L Low 1.15-1.33 [facility] Comment on above: Performed By: #### C ALCIUM, IONIZED ####[facility] RESPIRATORY [id number] [place] [address] [facility] CALCIUM IONIZED (MMOL/L) IN BLOOD 1.13 mmol/L Low 1.15-1.33 [facility] Comment on above: Performed By: #### C ALCIUM, IONIZED ####[facility] RESPIRATORY [id number] [place] [address] [place] CBCon 05-27-2023 Erythrocyte distribution width (RBC) [Ratio] 14.5 % Normal 11.5-15.0 [facility] Comment on above: Performed By: #### L [id number] ####[facility] (BEAKER)[address] [place] [address] ERYTHROCYTE MEAN CORPUSCULAR HEMOGLOBIN CONCENTRATION (G/DL) BY AUTOMATED 32.9 g/dL Normal 32.0-35.0 [facility] Comment on above: Performed By: #### L [id number] ####[facility] ([facility])[address] [place] [address] Hematocrit (Bld) [Volume fraction] 34.6 % Low 36.0-55.0 [facility] Comment on above: Performed By: #### L [id number] ####[facility] ([facility])[address] [place] [address] Hemoglobin (Bld) [Mass/Vol] 11.4 g/dL Low 12.0-17.0 [facility] Comment on above: Performed By: #### L [id number] ####[facility] ([facility])[address] [place] [address] MCH (RBC) [Entitic mass] 27.3 pg Normal 27.0-33.0 [facility] Comment on above: Performed By: #### L [id number] ####[facility] ([facility])[address] [place] [address] MCV (RBC) [Entitic vol] 82.8 fL Normal 82.0-98.0 [facility] Comment on above: Performed By: #### L [id number] ####[facility] ([facility])[address] [place] [address] PLATELETS (10*3/UL) IN BLOOD AUTOMATED COUNT 146 10*3/uL Low 150-400 [facility] Comment on above: Performed By: #### L [id number] ####[facility] ([facility])[address] [place] [address] RBC (Bld) [#/Vol] 4.18 10*6/uL Normal 3.80-5.70 [facility] Comment on above: Performed By: #### L [id number] ####[facility] ([facility])[address] [place] [address] WBC (Bld) [#/Vol] 11.47 10*3/uL High 4.00-10.60 [facility] Comment on above: Performed By: #### L [id number] ####[facility] ([facility])[address] [place] [address] Erythrocyte distribution width (RBC) [Ratio] 14.1 % Normal 11.5-15.0 [facility] Comment on above: Order Comment: Pre-o p diagnosis:Mitral valve disease [I05.9] Performed By: #### L [id number] ####[facility] ([facility])[address] [place] [address] ERYTHROCYTE MEAN CORPUSCULAR HEMOGLOBIN CONCENTRATION (G/DL) BY AUTOMATED 33.6 g/dL Normal 32.0-35.0 [facility] Comment on above: Order Comment: Pre-o p diagnosis:Mitral valve disease [I05.9] Performed By: #### L [id number] ####[facility] ([facility])[address] [place] [address] Hematocrit (Bld) [Volume fraction] 34.8 % Low 36.0-55.0 [facility] Comment on above: Order Comment: Pre-o p diagnosis:Mitral valve disease [I05.9] Performed By: #### L [id number] ####[facility] ([facility])[address] [place] [address] Hemoglobin (Bld) [Mass/Vol] 11.7 g/dL Low 12.0-17.0 [facility] Comment on above: Order Comment: Pre-o p diagnosis:Mitral valve disease [I05.9] Performed By: #### L [id number] ####[facility] ([facility])[address] [place] [address] MCH (RBC) [Entitic mass] 27.7 pg Normal 27.0-33.0 [facility] Comment on above: Order Comment: Pre-o p diagnosis:Mitral valve disease [I05.9] Performed By: #### L [id number] ####[facility] ([facility])[address] [place] [address] MCV (RBC) [Entitic vol] 82.5 fL Normal 82.0-98.0 [facility] Comment on above: Order Comment: Pre-o p diagnosis:Mitral valve disease [I05.9] Performed By: #### L [id number] ####[facility] (THIEN)[address] [place] [address] PLATELETS (10*3/UL) IN BLOOD AUTOMATED COUNT 158 10*3/uL Normal 150-400 [facility] Comment on above: Order Comment: Pre-o p diagnosis:Mitral valve disease [I05.9] Performed By: #### L [id number] ####[facility] ([facility])[address] [place] [address] RBC (Bld) [#/Vol] 4.22 10*6/uL Normal 3.80-5.70 [facility] Comment on above: Order Comment: Pre-o p diagnosis:Mitral valve disease [I05.9] Performed By: #### L [id number] ####[facility] ([facility])[address] [place] [address] WBC (Bld) [#/Vol] 15.57 10*3/uL High 4.00-10.60 [facility] Comment on above: Order Comment: Pre-o p diagnosis:Mitral valve disease [I05.9] Performed By: #### L [id number] ####[facility] ([place])[address] [place] [address] CO-OXIMETRYon 05-27-2023 CARBOXYHEMOGLOBIN/HE MOGLOBIN TOTAL % IN BLOOD 1.2 % Normal [facility] Comment on above: Performed By: #### L [id number] ####[facility] RESPIRATORY [id number] [place] [address] [place] Hemoglobin (Bld) [Mass/Vol] 11.4 g/dL Normal [facility] Comment on above: Performed By: #### L [id number] ####[facility] RESPIRATORY [id number] [place] [address] [place] METHEMOGLOBIN/100 IN BLOOD 0.5 % Normal 0.0-1.5 [facility] Comment on above: Performed By: #### L [id number] ####[facility] RESPIRATORY [id number] [place] [address] [place] Oxygen saturation in Blood 58.7 % Normal [facility] Comment on above: Performed By: #### L [id number] ####[facility] RESPIRATORY [id number] [place] [address] [place] OXYGENATED HEMOGLOBIN IN BLOOD 57.7 % Normal [facility] Comment on above: Performed By: #### L [id number] ####[facility] RESPIRATORY [id number] [place] [address] [place] CARBOXYHEMOGLOBIN/HE MOGLOBIN TOTAL % IN BLOOD 1.7 % Normal [facility] Comment on above: Performed By: #### L [id number] ####[facility] RESPIRATORY [id number] [place] [address] [facility] Hemoglobin (Bld) [Mass/Vol] 10.0 g/dL Normal [facility] Comment on above: Performed By: #### L [id number] ####[facility] RESPIRATORY [id number] [place] [address] [place] METHEMOGLOBIN/100 IN BLOOD 0.8 % Normal 0.0-1.5 [facility] Comment on above: Performed By: #### L [id number] ####[facility] RESPIRATORY [id number] [place] [address] [place] Oxygen saturation in Blood 63.9 % Normal [facility] Comment on above: Performed By: #### L [id number] ####[facility] RESPIRATORY [id number] [place] [address] [place] OXYGENATED HEMOGLOBIN IN BLOOD 62.2 % Normal [facility] Comment on above: Performed By: #### L [id number] ####[facility] RESPIRATORY [id number] [place] [address] [place] CONSULTon 05-27-2023 CONSULT Normal [facility] FIBRINOGENon 05-27-2023 Magnesium [Mass/Vol] 171 mg/dL Normal 150-425 [facility] Comment on above: Order Comment: Pre-o p diagnosis:Mitral valve disease [I05.9] Performed By: #### L [id number] ####[facility] (BEAKER)[address] [place] [address] HISTOLOGY - TISSUE EXAMon LAB AP CASE REPORT Normal [facility] Comment on above: Order Comment: Pre-o p diagnosis:Mitral valve disease [I05.9] Result Comment: Surg ical Pathology Case: [id number] Provider: Devaughn Resendez MD Collected: 05/27/2023 1057Ordering Location: [facility] Main Operating Room Received: 05/27/2023 1445Pathologist: ANTONIO Topecimen: Heart, MITRAL VALVE LEAFLET - P2 FOR HISTOLOGY Performed By: #### L [id number] ####[facility] ([facility])[address] [place] [address] LAB AP CLINICAL INFORMATION [facility] Comment on above: Order Comment: Pre-o p diagnosis:Mitral valve disease [I05.9] Result Comment: Post -Op [id number] - Mitral valve disease [ICD-10-CM] Performed By: #### L [id number] ####[facility] ([facility])[address] [place] [address] LAB AP GROSS DESCRIPTION A. Heart. [facility] Comment on above: Order Comment: Pre-o p [...] smooth cut surface. No calcifications are identified. Consulting Group Analyst sections are submitted in 1 cassette.Dani Maharaj, Pathologists' Pocketed Spring Machine Operator JannDatia Carrillo Pathologists[employer] Pocketed Spring Machine Operator Performed By: #### L [id number] ####[facility] (BEAKER)[address] [place] [address] LAB AP MICROSCOPIC DESCRIPTION Microscopic examination performed. [facility] Comment on above: Order Comment: Pre-o p diagnosis:Mitral valve disease [I05.9] Performed By: #### L [id number] ####[facility] ([facility])[address] [facility] [place] [address] LAB AP REPORT FINAL DIAGNOSIS NARRATIVE [facility] Comment on above: Order Comment: Pre-o p diagnosis:Mitral valve disease [I05.9] Result Comment: A. M itral valve leaflet, removal:- Valvular tissue with myxoid degeneration. Performed By: #### L [id number] ####[facility] ([facility])[address] [place] [address] HPon 05-27-2023 HP [facility] HP H&P reviewed. The patient was examined and there are no changes to the H&P. Patient was treated for ear infection with full course of antibiotics and was seen by ENT 05/25/2023 Dr. Fernandez and was cleared for surgery. Plan for MVR today with Dr. Resendez. [facility] LACTIC ACID WITH 4 HOUR REFL EXon 05-27-2023 LACTATE (MMOL/L) IN SER/PLAS 2.2 mmol/L Normal 0.5-2.2 [facility] Comment on above: Order Comment: Pre-o p diagnosis:Mitral valve disease [I05.9] Performed By: #### L [id number] ####[facility] ([facility])[address] [place] [address] Performed By: #### L [id number] ####[facility] ([facility])[address] [facility] [place] [address] LACTATE (MMOL/L) IN SER/PLAS 3.2 mmol/L Critically high 0.5-2.2 [facility] Comment on above: Order Comment: Pre-o p diagnosis:Mitral valve disease [I05.9] Performed By: #### L [id number] ####[facility] ([facility])[address] [facility] [place] [address] MAGNESIUMon 05-27-2023 Magnesium [Mass/Vol] 2.0 mg/dL Normal 1.9-2.7 [facility] Comment on above: Performed By: #### L [id number] ####[facility] (BEAKER)[address] [place] [address] Magnesium [Mass/Vol] 2.1 mg/dL Normal 1.9-2.7 [facility] Comment on above: Order Comment: Pre-o p diagnosis:Mitral valve disease [I05.9] Performed By: #### L [id number] ####[facility] ([facility] [place] [address] OPNOTEon 05-27-2023 OPNOTE Normal [facility] PHOSPHORUSon 05-27-2023 Magnesium [Mass/Vol] 3.0 mg/dL Normal 2.5-5.0 [facility] Comment on above: Performed By: #### L [id number] ####[facility] ([facility])[address] [place] [address] POCT ACTIVATED CLOTTING TIME UNSOLICITED RESULTSon 05-27-2023 POC ACTIVATED CLOTTING TIME 114 sec Normal 82-152 [facility] Comment on above: Performed By: #### L [id number] ####[facility] ([facility] [place] [address] POC ACTIVATED CLOTTING TIME 107 sec Normal 82-152 [facility] Comment on above: Performed By: #### L [id number] ####[facility] ([facility])[address] [place] [address] POC ACTIVATED CLOTTING TIME 476 sec High 82-152 [facility] Comment on above: Performed By: #### L [id number] ####[facility] ([facility])[address] [place] [address] POC ACTIVATED CLOTTING TIME 476 sec High 82-152 [facility] Comment on above: Performed By: #### L [id number] ####[facility] (BEAKER)[address] [place] [address] POC ACTIVATED CLOTTING TIME 503 sec High 82-152 [facility] Comment on above: Performed By: #### L [id number] ####[facility] (BEAKER)[address] [place] [address] POC ACTIVATED CLOTTING TIME 462 sec High 82-152 [facility] Comment on above: Performed By: #### L [id number] ####[facility] (BEAKER)[address] [place] [address] POC ACTIVATED CLOTTING TIME 575 sec High 82-152 [facility] Comment on above: Performed By: #### L [id number] ####[facility] ([facility] [place] [address] POC ACTIVATED CLOTTING TIME 717 sec High 82-152 [facility] Comment on above: Performed By: #### L [id number] ####[facility] ([facility] [place] [address] POC ACTIVATED CLOTTING TIME 587 sec High 82-152 [facility] Comment on above: Performed By: #### L [id number] ####[facility] (BEAKER)[address] [place] [address] POC ACTIVATED CLOTTING TIME 427 sec High 82-152 [facility] Comment on above: Performed By: #### L [id number] ####[facility] (BEAKER)[address] [place] [address] POC ACTIVATED CLOTTING TIME 120 sec Normal 82-152 [facility] Comment on above: Performed By: #### L [id number] ####[facility] ([facility])[address] [place] [address] POCT GLUCOSE METER UNSOLICIT ED RESULTSon 05-27-2023 Glucose [Mass/Vol] 130 mg/dL High 70-105 [facility] Comment on above: Order Comment: Waive d Testing in the ED is performed under the ED CLIA certificate #[id number]. Result Comment: ebol tz Performed By: #### L [id number] ####[facility] (BEAKER)[address] [place] [address] Glucose [Mass/Vol] 134 mg/dL High 70-105 [facility] Comment on above: Order Comment: Waive d Testing in the ED is performed under the ED CLIA certificate #[id number]. Result Comment: than sen2 Performed By: #### L [id number] ####[facility] (BEAKER)[address] [place] [address] Glucose [Mass/Vol] 156 mg/dL High 70-105 [facility] Comment on above: Order Comment: Waive d Testing in the ED is performed under the ED CLIA certificate #[id number]. Result Comment: than sen2 Performed By: #### L [id number] ####[facility] ([facility])[address] [place] [address] Glucose [Mass/Vol] 147 mg/dL High 70-105 [facility] Comment on above: Order Comment: Waive d Testing in the ED is performed under the ED CLIA certificate #[id number]. Result Comment: than sen2 Performed By: #### L [id number] ####[facility] ([facility])[address] [place] [address] Glucose [Mass/Vol] 154 mg/dL High 70-105 [facility] Comment on above: Order Comment: Waive d Testing in the ED is performed under the ED CLIA certificate #[id number]. Result Comment: than sen2 Performed By: #### L [id number] ####[facility] ([employer])[address] [place] [address] Glucose [Mass/Vol] 133 mg/dL High 70-105 [facility] Comment on above: Order Comment: Waive d Testing in the ED is performed under the ED CLIA certificate #[id number]. Result Comment: lgal lo Performed By: #### L [id number] ####[facility] ([facility])[address] [place] [address] POCT PERFUSION PANEL UNSOLIC ITED RESULTSon 05-27-2023 CO2 [Moles/Vol] 25.0 mmol/L Normal 21.0-29.0 [facility] Comment on above: Performed By: #### L [id number] ####[facility] ([facility])[address] [place] [address] Glucose [Mass/Vol] 169 mg/dL High 70-105 [facility] Comment on above: Performed By: #### L [id number] ####[facility] ([facility])[address] [place] [address] HCO3 (Bld) [Moles/Vol] 23.9 mmol/L Normal 23.0-28.0 [facility] Comment on above: Performed By: #### L [id number] ####[facility] ([facility])[address] [place] [address] Hematocrit (Bld) [Volume fraction] 34 % Low 38-51 [facility] Comment on above: Performed By: #### L [id number] ####[facility] (BEAKER)[address] [place] [address] Hemoglobin (Bld) [Mass/Vol] 11.6 g/dL Low 12.0-17.0 [facility] Comment on above: Performed By: #### L [id number] ####[facility] (BEAKER)[address] [place] [address] POCT BASE EXCESS -2.0 mmol/L Normal -2.0-3.0 [facility] Comment on above: Performed By: #### L [id number] ####[facility] (BEAKER)[address] [place] [address] POCT IONIZED CALCIUM 1.20 mmol/L Normal 1.12-1.32 [facility] Comment on above: Performed By: #### L [id number] ####[facility] (BEAKER)[address] [place] [address] POCT PCO2 44.6 mmHg Normal 41.0-51.0 [facility] Comment on above: Performed By: #### L [id number] ####[facility] (BEAKER)[address] [place] [address] POCT PH 7.34 Normal 7.31-7.41 [facility] Comment on above: Performed By: #### L [id number] ####[facility] (BEAKER)[address] [place] [address] POCT PO2 249 mmHg High 80-105 [facility] Comment on above: Performed By: #### L [id number] ####[facility] (BEAKER)[address] [place] [address] POCT SO2 100 % High 95-98 [facility] Comment on above: Performed By: #### L [id number] ####[facility] (BEAKER)[address] [place] [address] Potassium [Moles/Vol] 3.8 mmol/L Normal 3.5-4.9 [facility] Comment on above: Performed By: #### L [id number] ####[facility] (BEAKER)[address] [place] [address] Sodium [Moles/Vol] 143 mmol/L Normal 138.0-146.0 [facility] Comment on above: Performed By: #### L [id number] ####[facility] (BEAKER)[address] [place] [address] CO2 [Moles/Vol] 24.0 mmol/L Normal 21.0-29.0 [facility] Comment on above: Performed By: #### L [id number] ####[facility] (BEAKER)[address] [place] [address] Glucose [Mass/Vol] 170 mg/dL High 70-105 [facility] Comment on above: Performed By: #### L [id number] ####[facility] (BEAKER)[address] [place] [address] HCO3 (Bld) [Moles/Vol] 22.8 mmol/L Low 23.0-28.0 [facility] Comment on above: Performed By: #### L [id number] ####[facility] (BEAKER)[address] [place] [address] Hematocrit (Bld) [Volume fraction] 34 % Low 38-51 [facility] Comment on above: Performed By: #### L [id number] ####[facility] (BEAKER)[address] [place] [address] Hemoglobin (Bld) [Mass/Vol] 11.6 g/dL Low 12.0-17.0 [facility] Comment on above: Performed By: #### L [id number] ####[facility] [place] [address] POCT BASE EXCESS -3.0 mmol/L Low -2.0-3.0 [facility] Comment on above: Performed By: #### L [id number] ####[facility] [place] [address] POCT IONIZED CALCIUM 1.21 mmol/L Normal 1.12-1.32 [facility] Comment on above: Performed By: #### L [id number] ####[facility] (BEAKER)[address] [place] [address] POCT PCO2 41.2 mmHg Normal 41.0-51.0 [facility] Comment on above: Performed By: #### L [id number] ####[facility] (BEAKER)[address] [place] [address] POCT PH 7.35 Normal 7.31-7.41 [facility] Comment on above: Performed By: #### L [id number] ####[facility] (BEAKER)[address] [place] [address] POCT PO2 69 mmHg Low 80-105 [facility] Comment on above: Performed By: #### L [id number] ####[facility] (BEAKER)[address] [place] [address] POCT SO2 93 % Low 95-98 [facility] Comment on above: Performed By: #### L [id number] ####[facility] (BEAKER)[address] [place] [address] Potassium [Moles/Vol] 3.9 mmol/L Normal 3.5-4.9 [facility] Comment on above: Performed By: #### L [id number] ####[facility] (BEAKER)[address] [place] [address] Sodium [Moles/Vol] 144 mmol/L Normal 138.0-146.0 [facility] Comment on above: Performed By: #### L [id number] ####[facility] (BEAKER)[address] [place] [address] CO2 [Moles/Vol] 29.0 mmol/L Normal 21.0-29.0 [facility] Comment on above: Performed By: #### L [id number] ####[facility] (BEAKER)[address] [place] [address] Glucose [Mass/Vol] 201 mg/dL High 70-105 [facility] Comment on above: Performed By: #### L [id number] ####[facility] (BEAKER)[address] [place] [address] HCO3 (Bld) [Moles/Vol] 27.6 mmol/L Normal 23.0-28.0 [facility] Comment on above: Performed By: #### L [id number] ####[facility] (BEAKER)[address] [place] [address] Hematocrit (Bld) [Volume fraction] 31 % Low 38-51 [facility] Comment on above: Performed By: #### L [id number] ####[facility] (BEAKER)[address] [place] [address] Hemoglobin (Bld) [Mass/Vol] 10.5 g/dL Low 12.0-17.0 [facility] Comment on above: Performed By: #### L [id number] ####[facility] (BEAKER)[address] [place] [address] POCT BASE EXCESS 3.0 mmol/L Normal -2.0-3.0 [facility] Comment on above: Performed By: #### L [id number] ####[facility] (BEAKER)[address] [place] [address] POCT IONIZED CALCIUM 1.05 mmol/L Low 1.12-1.32 [facility] Comment on above: Performed By: #### L [id number] ####[facility] (BEAKER)[address] [place] [address] POCT PCO2 43.4 mmHg Normal 41.0-51.0 [facility] Comment on above: Performed By: #### L [id number] ####[facility] (BEAKER)[address] [place] [address] POCT PH 7.41 Normal 7.31-7.41 [facility] Comment on above: Performed By: #### L [id number] ####[facility] (BEAKER)[address] [place] [address] POCT PO2 307 mmHg High 80-105 [facility] Comment on above: Performed By: #### L [id number] ####[facility] (BEAKER)[address] [place] [address] POCT SO2 100 % High 95-98 [facility] Comment on above: Performed By: #### L [id number] ####[facility] (BEAKER)[address] [place] [address] Potassium [Moles/Vol] 5.1 mmol/L High 3.5-4.9 [facility] Comment on above: Performed By: #### L [id number] ####[facility] (BEAKER)[address] [place] [address] Sodium [Moles/Vol] 140 mmol/L Normal 138.0-146.0 [facility] Comment on above: Performed By: #### L [id number] ####[facility] (BEAKER)[address] [place] [address] CO2 [Moles/Vol] 28.0 mmol/L Normal 21.0-29.0 [facility] Comment on above: Performed By: #### L [id number] ####[facility] (BEAKER)[address] [place] [address] Glucose [Mass/Vol] 188 mg/dL High 70-105 [facility] Comment on above: Performed By: #### L [id number] ####[facility] (BEAKER)[address] [place] [address] HCO3 (Bld) [Moles/Vol] 26.5 mmol/L Normal 23.0-28.0 [facility] Comment on above: Performed By: #### L [id number] ####[facility] (BEAKER)[address] [place] [address] Hematocrit (Bld) [Volume fraction] 32 % Low 38-51 [facility] Comment on above: Performed By: #### L [id number] ####[facility] (BEAKER)[address] [place] [address] Hemoglobin (Bld) [Mass/Vol] 10.9 g/dL Low 12.0-17.0 [facility] Comment on above: Performed By: #### L [id number] ####[facility] (BEAKER)[address] [place] [address] POCT BASE EXCESS 2.0 mmol/L Normal -2.0-3.0 [facility] Comment on above: Performed By: #### L [id number] ####[facility] (BEAKER)[address] [place] [address] POCT IONIZED CALCIUM 1.05 mmol/L Low 1.12-1.32 [facility] Comment on above: Performed By: #### L [id number] ####[facility] (BEAKER)[address] [place] [address] POCT PCO2 40.4 mmHg Low 41.0-51.0 [facility] Comment on above: Performed By: #### L [id number] ####[facility] (BEAKER)[address] [place] [address] POCT PH 7.43 High 7.31-7.41 [facility] Comment on above: Performed By: #### L [id number] ####[facility] (BEAKER)[address] [place] [address] POCT PO2 284 mmHg High 80-105 [facility] Comment on above: Performed By: #### L [id number] ####[facility] (BEAKER)[address] [place] [address] POCT SO2 100 % High 95-98 [facility] Comment on above: Performed By: #### L [id number] ####[facility] (BEAKER)[address] [place] [address] Potassium [Moles/Vol] 4.9 mmol/L Normal 3.5-4.9 [facility] Comment on above: Performed By: #### L [id number] ####[facility] (BEAKER)[address] [place] [address] Sodium [Moles/Vol] 139 mmol/L Normal 138.0-146.0 [facility] Comment on above: Performed By: #### L [id number] ####[facility] (BEAKER)[address] [place] [address] CO2 [Moles/Vol] 31.0 mmol/L High 21.0-29.0 [facility] Comment on above: Performed By: #### L [id number] ####[facility] (BEAKER)[address] [place] [address] Glucose [Mass/Vol] 178 mg/dL High 70-105 [facility] Comment on above: Performed By: #### L [id number] ####[facility] (BEAKER)[address] [place] [address] HCO3 (Bld) [Moles/Vol] 29.2 mmol/L High 23.0-28.0 [facility] Comment on above: Performed By: #### L [id number] ####[facility] (BEAKER)[address] [place] [address] Hematocrit (Bld) [Volume fraction] 33 % Low 38-51 [facility] Comment on above: Performed By: #### L [id number] ####[facility] (BEAKER)[address] [place] [address] Hemoglobin (Bld) [Mass/Vol] 11.2 g/dL Low 12.0-17.0 [facility] Comment on above: Performed By: #### L [id number] ####[facility] [place] [address] POCT BASE EXCESS 3.0 mmol/L Normal -2.0-3.0 [facility] Comment on above: Performed By: #### L [id number] ####[facility] (BEAKER)[address] [place] [address] POCT IONIZED CALCIUM 1.08 mmol/L Low 1.12-1.32 [facility] Comment on above: Performed By: #### L [id number] ####[facility] (BEAKER)[address] [place] [address] POCT PCO2 52.8 mmHg High 41.0-51.0 [facility] Comment on above: Performed By: #### L [id number] ####[facility] (BEAKER)[address] [place] [address] POCT PH 7.35 Normal 7.31-7.41 [facility] Comment on above: Performed By: #### L [id number] ####[facility] (BEAKER)[address] [place] [address] POCT PO2 337 mmHg High 80-105 [facility] Comment on above: Performed By: #### L [id number] ####[facility] (BEAKER)[address] [place] [address] POCT SO2 100 % High 95-98 [facility] Comment on above: Performed By: #### L [id number] ####[facility] (BEAKER)[address] [place] [address] Potassium [Moles/Vol] 4.6 mmol/L Normal 3.5-4.9 [facility] Comment on above: Performed By: #### L [id number] ####[facility] (BEAKER)[address] [place] [address] Sodium [Moles/Vol] 139 mmol/L Normal 138.0-146.0 [facility] Comment on above: Performed By: #### L [id number] ####[facility] [place] [address] CO2 [Moles/Vol] 31.0 mmol/L High 21.0-29.0 [facility] Comment on above: Performed By: #### L [id number] ####[facility] (BEAKER)[address] [place] [address] Glucose [Mass/Vol] 161 mg/dL High 70-105 [facility] Comment on above: Performed By: #### L [id number] ####[facility] (BEAKER)[address] [place] [address] HCO3 (Bld) [Moles/Vol] 29.7 mmol/L High 23.0-28.0 [facility] Comment on above: Performed By: #### L [id number] ####[facility] (BEAKER)[address] [place] [address] Hematocrit (Bld) [Volume fraction] 34 % Low 38-51 [facility] Comment on above: Performed By: #### L [id number] ####[facility] (BEAKER)[address] [place] [address] Hemoglobin (Bld) [Mass/Vol] 11.6 g/dL Low 12.0-17.0 [facility] Comment on above: Performed By: #### L [id number] ####[facility] (BEAKER)[address] [place] [address] POCT BASE EXCESS 4.0 mmol/L High -2.0-3.0 [facility] Comment on above: Performed By: #### L [id number] ####[facility] (BEAKER)[address] [place] [address] POCT IONIZED CALCIUM 1.08 mmol/L Low 1.12-1.32 [facility] Comment on above: Performed By: #### L [id number] ####[facility] (BEAKER)[address] [place] [address] POCT PCO2 49.0 mmHg Normal 41.0-51.0 [facility] Comment on above: Performed By: #### L [id number] ####[facility] (BEAKER)[address] [place] [address] POCT PH 7.39 Normal 7.31-7.41 [facility] Comment on above: Performed By: #### L [id number] ####[facility] (BEAKER)[address] [place] [address] POCT PO2 419 mmHg High 80-105 [facility] Comment on above: Performed By: #### L [id number] ####[facility] (BEAKER)[address] [place] [address] POCT SO2 100 % High 95-98 [facility] Comment on above: Performed By: #### L [id number] ####[facility] (BEAKER)[address] [place] [address] Potassium [Moles/Vol] 4.5 mmol/L Normal 3.5-4.9 [facility] Comment on above: Performed By: #### L [id number] ####[facility] (BEAKER)[address] [place] [address] Sodium [Moles/Vol] 139 mmol/L Normal 138.0-146.0 [facility] Comment on above: Performed By: #### L [id number] ####[facility] (BEAKER)[address] [place] [address] CO2 [Moles/Vol] 32.0 mmol/L High 21.0-29.0 [facility] Comment on above: Performed By: #### L [id number] ####[facility] (BEAKER)[address] [place] [address] Glucose [Mass/Vol] 146 mg/dL High 70-105 [facility] Comment on above: Performed By: #### L [id number] ####[facility] (BEAKER)[address] [place] [address] HCO3 (Bld) [Moles/Vol] 30.2 mmol/L High 23.0-28.0 [facility] Comment on above: Performed By: #### L [id number] ####[facility] (BEAKER)[address] [place] [address] Hematocrit (Bld) [Volume fraction] 33 % Low 38-51 [facility] Comment on above: Performed By: #### L [id number] ####[facility] (BEAKER)[address] [place] [place] [address] Hemoglobin (Bld) [Mass/Vol] 11.2 g/dL Low 12.0-17.0 [facility] Comment on above: Performed By: #### L [id number] ####[facility] (BEAKER)[address] [place] [address] POCT BASE EXCESS 5.0 mmol/L High -2.0-3.0 [facility] Comment on above: Performed By: #### L [id number] ####[facility] (BEAKER)[address] [place] [address] POCT IONIZED CALCIUM 1.06 mmol/L Low 1.12-1.32 [facility] Comment on above: Performed By: #### L [id number] ####[facility] (BEAKER)[address] [place] [address] POCT PCO2 46.6 mmHg Normal 41.0-51.0 [facility] Comment on above: Performed By: #### L [id number] ####[facility] (BEAKER)[address] [place] [address] POCT PH 7.42 High 7.31-7.41 [facility] Comment on above: Performed By: #### L [id number] ####[facility] (BEAKER)[address] [place] [address] POCT PO2 340 mmHg High 80-105 [facility] Comment on above: Performed By: #### L [id number] ####[facility] (BEAKER)[address] [place] [address] POCT SO2 100 % High 95-98 [facility] Comment on above: Performed By: #### L [id number] ####[facility] (BEAKER)[address] [place] [address] Potassium [Moles/Vol] 4.0 mmol/L Normal 3.5-4.9 [facility] Comment on above: Performed By: #### L [id number] ####[facility] (BEAKER)[address] [place] [address] Sodium [Moles/Vol] 140 mmol/L Normal 138.0-146.0 [facility] Comment on above: Performed By: #### L [id number] ####[facility] (BEAKER)[address] [place] [address] CO2 [Moles/Vol] 30.0 mmol/L High 21.0-29.0 [facility] Comment on above: Performed By: #### L [id number] ####[facility] (BEAKER)[address] [place] [address] Glucose [Mass/Vol] 137 mg/dL High 70-105 [facility] Comment on above: Performed By: #### L [id number] ####[facility] (BEAKER)[address] [place] [address] HCO3 (Bld) [Moles/Vol] 28.5 mmol/L High 23.0-28.0 [facility] Comment on above: Performed By: #### L [id number] ####[facility] (BEAKER)[address] [place] [address] Hematocrit (Bld) [Volume fraction] 35 % Low 38-51 [facility] Comment on above: Performed By: #### L [id number] ####[facility] (BEAKER)[address] [place] [address] Hemoglobin (Bld) [Mass/Vol] 11.9 g/dL Low 12.0-17.0 [facility] Comment on above: Performed By: #### L [id number] ####[facility] [place] [address] POCT BASE EXCESS 2.0 mmol/L Normal -2.0-3.0 [facility] Comment on above: Performed By: #### L [id number] ####[facility] ([facility])[address] [place] [address] POCT IONIZED CALCIUM 1.11 mmol/L Low 1.12-1.32 [facility] Comment on above: Performed By: #### L [id number] ####[facility] (BEAKER)[address] [place] [address] POCT PCO2 52.5 mmHg High 41.0-51.0 [facility] Comment on above: Performed By: #### L [id number] ####[facility] (BEAKER)[address] [place] [address] POCT PH 7.34 Normal 7.31-7.41 [facility] Comment on above: Performed By: #### L [id number] ####[facility] (BEAKER)[address] [place] [address] POCT PO2 50 mmHg Low 80-105 [facility] Comment on above: Performed By: #### L [id number] ####[facility] (BEAKER)[address] [place] [address] POCT SO2 82 % Low 95-98 [facility] Comment on above: Performed By: #### L [id number] ####[facility] (BEAKER)[address] [place] [address] Potassium [Moles/Vol] 3.8 mmol/L Normal 3.5-4.9 [facility] Comment on above: Performed By: #### L [id number] ####[facility] [place] [address] Sodium [Moles/Vol] 143 mmol/L Normal 138.0-146.0 [facility] Comment on above: Performed By: #### L [id number] ####[facility] [place] [address] CO2 [Moles/Vol] 33.0 mmol/L High 21.0-29.0 [facility] Comment on above: Performed By: #### L [id number] ####[facility] [place] [address] Glucose [Mass/Vol] 137 mg/dL High 70-105 [facility] Comment on above: Performed By: #### L [id number] ####[facility] (BEAKER)[address] [place] [address] HCO3 (Bld) [Moles/Vol] 31.4 mmol/L High 23.0-28.0 [facility] Comment on above: Performed By: #### L [id number] ####[facility] (BEAKER)[address] [place] [address] Hematocrit (Bld) [Volume fraction] 35 % Low 38-51 [facility] Comment on above: Performed By: #### L [id number] ####[facility] (BEAKER)[address] [place] [address] Hemoglobin (Bld) [Mass/Vol] 11.9 g/dL Low 12.0-17.0 [facility] Comment on above: Performed By: #### L [id number] ####[facility] (BEAKER)[address] [place] [address] POCT BASE EXCESS 5.0 mmol/L High -2.0-3.0 [facility] Comment on above: Performed By: #### L [id number] ####[facility] (BEAKER)[address] [place] [address] POCT IONIZED CALCIUM 1.04 mmol/L Low 1.12-1.32 [facility] Comment on above: Performed By: #### L [id number] ####[facility] ([facility]AKER)[address] [place] [address] POCT PCO2 55.1 mmHg High 41.0-51.0 [facility] Comment on above: Performed By: #### L [id number] ####[facility] (BEAKER)[address] [place] [address] POCT PH 7.36 Normal 7.31-7.41 [facility] Comment on above: Performed By: #### L [id number] ####[facility] (BEAKER)[address] [place] [address] POCT PO2 550 mmHg High 80-105 [facility] Comment on above: Performed By: #### L [id number] ####[facility] (BEAKER)[address] [place] [address] POCT SO2 100 % High 95-98 [facility] Comment on above: Performed By: #### L [id number] ####[facility] (BEAKER)[address] [place] [address] Potassium [Moles/Vol] 4.0 mmol/L Normal 3.5-4.9 [facility] Comment on above: Performed By: #### L [id number] ####[facility] (BEAKER)[address] [place] [address] Sodium [Moles/Vol] 142 mmol/L Normal 138.0-146.0 [facility] Comment on above: Performed By: #### L [id number] ####[facility] (BEAKER)[address] [place] [address] CO2 [Moles/Vol] 27.0 mmol/L Normal 21.0-29.0 [facility] Comment on above: Performed By: #### L [id number] ####[facility] (BEAKER)[address] [place] [address] Glucose [Mass/Vol] 137 mg/dL High 70-105 [facility] Comment on above: Performed By: #### L [id number] ####[facility] (BEAKER)[address] [place] [address] HCO3 (Bld) [Moles/Vol] 25.9 mmol/L Normal 23.0-28.0 [facility] Comment on above: Performed By: #### L [id number] ####[facility] [facility] [place] [address] Hematocrit (Bld) [Volume fraction] 39 % Normal 38-51 [facility] Comment on above: Performed By: #### L [id number] ####[facility] ([facility])[address] [place] [address] Hemoglobin (Bld) [Mass/Vol] 13.3 g/dL Normal 12.0-17.0 [facility] Comment on above: Performed By: #### L [id number] ####[facility] ([facility]AKER)[address] [place] [address] POCT BASE EXCESS 0.0 mmol/L Normal -2.0-3.0 [facility] Comment on above: Performed By: #### L [id number] ####[facility] ([facility]ER)[address] [place] [address] POCT IONIZED CALCIUM 1.19 mmol/L Normal 1.12-1.32 [facility] Comment on above: Performed By: #### L [id number] ####[facility] ([facility]AKER)[address] [place] [address] POCT PCO2 44.4 mmHg Normal 41.0-51.0 [facility] Comment on above: Performed By: #### L [id number] ####[facility] ([facility]AKER)[address] [place] [address] POCT PH 7.37 Normal 7.31-7.41 [facility] Comment on above: Performed By: #### L [id number] ####[facility] ([facility]AKER)[address] [place] [address] POCT PO2 77 mmHg Low 80-105 [facility] Comment on above: Performed By: #### L [id number] ####[facility] (BEAKER)[address] [place] [address] POCT SO2 95 % Normal 95-98 [facility] Comment on above: Performed By: #### L [id number] ####[facility] (BEAKER)[address] [place] [address] Potassium [Moles/Vol] 3.8 mmol/L Normal 3.5-4.9 [facility] Comment on above: Performed By: #### L [id number] ####[facility] (BEAKER)[address] [place] [address] Sodium [Moles/Vol] 141 mmol/L Normal 138.0-146.0 [facility] Comment on above: Performed By: #### L [id number] ####[facility] (BEAKER)[address] [place] [address] CO2 [Moles/Vol] 26.0 mmol/L Normal 21.0-29.0 [facility] Comment on above: Performed By: #### L [id number] ####[facility] (BEAKER)[address] [place] [address] Glucose [Mass/Vol] 144 mg/dL High 70-105 [facility] Comment on above: Performed By: #### L [id number] ####[facility] (BEAKER)[address] [place] [address] HCO3 (Bld) [Moles/Vol] 24.7 mmol/L Normal 23.0-28.0 [facility] Comment on above: Performed By: #### L [id number] ####[facility] (BEAKER)[address] [place] [address] Hematocrit (Bld) [Volume fraction] 41 % Normal 38-51 [facility] Comment on above: Performed By: #### L [id number] ####[facility] (BEAKER)[address] [place] [address] Hemoglobin (Bld) [Mass/Vol] 13.9 g/dL Normal 12.0-17.0 [facility] Comment on above: Performed By: #### L [id number] ####[facility] [place] [address] POCT BASE EXCESS 0.0 mmol/L Normal -2.0-3.0 [facility] Comment on above: Performed By: #### L [id number] ####[facility] [place] [address] POCT IONIZED CALCIUM 1.22 mmol/L Normal 1.12-1.32 [facility] Comment on above: Performed By: #### L [id number] ####[facility] ([facility])[address] [place] [address] POCT PCO2 40.9 mmHg Low 41.0-51.0 [facility] Comment on above: Performed By: #### L [id number] ####[facility] ([facility])[address] [place] [address] POCT PH 7.39 Normal 7.31-7.41 [facility] Comment on above: Performed By: #### L [id number] ####[facility] (BEAKER)[address] [place] [address] POCT PO2 85 mmHg Normal 80-105 [facility] Comment on above: Performed By: #### L [id number] ####[facility] (BEAKER)[address] [place] [address] POCT SO2 96 % Normal 95-98 [facility] Comment on above: Performed By: #### L [id number] ####[facility] (BEAKER)[address] [place] [address] Potassium [Moles/Vol] 3.8 mmol/L Normal 3.5-4.9 [facility] Comment on above: Performed By: #### L [id number] ####[facility] ([facility])[address] [facility] [place] [address] Sodium [Moles/Vol] 141 mmol/L Normal 138.0-146.0 [facility] Comment on above: Performed By: #### L [id number] ####[facility] ([facility])[address] [facility] [place] [address] POTASSIUM, WHOLE BLOODon Potassium [Moles/Vol] 4.9 mmol/L Normal 3.5-5.1 [facility] Comment on above: Performed By: #### P OTASSIUM, WHOLE BLOOD ####[facility]PIR[facility] [id number] [place] [address] [facility] Potassium [Moles/Vol] 4.1 mmol/L Normal 3.5-5.1 [facility] Comment on above: Performed By: #### P OTASSIUM, WHOLE BLOOD ####[facility]PIR[facility] [id number] [place] [address] [facility] Potassium [Moles/Vol] 3.8 mmol/L Normal 3.5-5.1 [facility] Comment on above: Performed By: #### P OTASSIUM, WHOLE BLOOD ####[facility] RESPIRATORY [id number] [place] [address] [facility] PROTIME-INRon 05-27-2023 INR IN PPP BY COAGULATION ASSAY 1.23 High 0.90-1.10 [facility] Comment on above: Result Comment: ACCC P [...] CHEST 1995;108:231S-246S. Performed By: #### L [id number] ####[facility] ([facility]ER)[address] [place] [address] PROTHROMBIN TIME (PT) IN PPP BY COAGULATION ASSAY 15.6 Seconds High 12.3-14.8 [facility] Comment on above: Performed By: #### L [id number] ####[facility] ([facility]AKER)[address] [place] [address] INR IN PPP BY COAGULATION ASSAY 1.32 High 0.90-1.10 [facility] Comment on above: Order Comment: Pre-o [...] CHEST 1995;108:231S-246S. Performed By: #### L [id number] ####[facility] ([facility]ER)[address] [place] [address] PROTHROMBIN TIME (PT) IN PPP BY COAGULATION ASSAY 16.4 Seconds High 12.3-14.8 [facility] Comment on above: Order Comment: Pre-o p diagnosis:Mitral valve disease [I05.9] Performed By: #### L [id number] ####[facility] (BEAKER)[address] [place] [address] SODIUM, WHOLE BLOODon 2022 SODIUM, WHOLE BLOOD 138 Normal 136-145 [facility] Comment on above: Performed By: #### S ODIUM, WHOLE BLOOD ####[facility] RESPIRATORY [id number] [place] [address] [facility] SODIUM, WHOLE BLOOD 138 Normal 136-145 [facility] Comment on above: Performed By: #### S ODIUM, WHOLE BLOOD ####[facility] RESPIRATORY [id number] [place] [address] [facility] SODIUM, WHOLE BLOOD 137 Normal 136-145 [facility] Comment on above: Performed By: #### S ODIUM, WHOLE BLOOD ####[facility] RESPIRATORY [id number] [place] [address] [facility] VENOUS BLOOD GAS WITH IONIZE D CALCIUMon 05-27-2023 Base excess Calc (BldV) [Moles/Vol] -1.8000 mmol/L Normal [facility] Comment on above: Performed By: #### L [id number] ####[facility] RESPIRATORY [id number] [place] [address] [facility] CALCIUM IONIZED (MMOL/L) IN BLOOD 1.18 mmol/L Normal 1.15-1.33 [facility] Comment on above: Performed By: #### L [id number] ####[facility] RESPIRATORY [id number] [place] [address] [facility] CO2 (BldV) [Partial pressure] 48 mm[Hg] Normal 40-50 [facility] Comment on above: Performed By: #### L [id number] ####[facility] RESPIRATORY [id number] [place] [address] [place] HCO3 (Bld) [Moles/Vol] 24.7 mmol/L Normal [facility] Comment on above: Performed By: #### L [id number] ####[facility] RESPIRATORY [id number] [place] [address] [facility] Oxygen (BldV) [Partial pressure] 39 mm[Hg] Normal 35-45 [facility] Comment on above: Performed By: #### L [id number] ####[facility] RESPIRATORY [id number] [place] [address] [facility] OXYGEN SATURATION (%) IN VENOUS BLOOD 62.9 % Low 65.0-75.0 [facility] Comment on above: Performed By: #### L [id number] ####[facility] RESPIRATORY [id number] [place] [address] [facility] PH OF VENOUS BLOOD 7.32 Normal 7.31-7.41 [facility] Comment on above: Performed By: #### L [id number] ####[facility] RESPIRATORY [id number] [place] [address] [place] ANESon 05-26-2023 ANES Normal [facility] Letter (Out)on 05-26-2023 Letter (Out) Normal [facility] Documentationon 05-22-2023 Documentation Normal [facility] APTTon 05-14-2023 ACTIVATED PARTIAL THROMBOPLASTIN TIME IN PPP BY COAGULATION ASSAY 27.1 Seconds Normal 25.0-35.0 [facility] Comment on above: Result Comment: Clin ical significance of the APTT is questionable in the presence of heparin. Performed By: #### L [id number] ####[facility] (BEAKER)[address] [place] [address] BASIC METABOLIC PANELon 05-05 Anion gap [Moles/Vol] 12 mmol/L Normal 7-20 [facility] Comment on above: Performed By: #### L [id number] ####[facility] (BEAKER)[address] [place] [address] Calcium [Mass/Vol] 9.2 mg/dL Normal 8.6-10.3 [facility] Comment on above: Performed By: #### L [id number] ####[facility] ([facility])[address] [place] [address] Chloride [Moles/Vol] 105 mmol/L Normal 98-107 [facility] Comment on above: Performed By: #### L [id number] ####[facility] ([facility])[address] [place] [address] CO2 [Moles/Vol] 25 mmol/L Normal 21-31 [facility] Comment on above: Performed By: #### L [id number] ####[facility] ([facility])[address] [place] [address] Creatinine [Mass/Vol] 1.11 mg/dL Normal 0.60-1.30 [facility] Comment on above: Performed By: #### L [id number] ####[facility] ([facility])[address] [place] [address] GLOMERULAR FILTRATION RATE ML/MIN/1.73 SQ M.PREDICTED 58.7 mL/min/1.73m*2 Low >60.0 [facility] Comment on above: Result Comment: [facility]???s estimated glomerular filtration rate (eGFR) will no [...] of individuals. Performed By: #### L [id number] ####[facility] ([facility] [place] [address] Glucose [Mass/Vol] 172 mg/dL High 70-100 [facility] Comment on above: Performed By: #### L [id number] ####[facility] [place] [address] Potassium [Moles/Vol] 4.0 mmol/L Normal 3.5-5.1 [facility] Comment on above: Performed By: #### L [id number] ####[facility] [place] [address] Sodium [Moles/Vol] 138 mmol/L Normal 136-145 [facility] Comment on above: Performed By: #### L [id number] ####[facility] [place] [address] Urea nitrogen [Mass/Vol] 16 mg/dL Normal 7-25 [facility] Comment on above: Performed By: #### L [id number] ####[facility] ([facility])[address] [place] [address] UREA NITROGEN/CREATININE (MASS RATIO) IN SER/PLAS 14.4 Normal [facility] Comment on above: Performed By: #### L [id number] ####[facility] ([facility])[address] [place] [address] CBC WITH AUTO DIFFERENTIALon 05-14-2023 Basophils (Bld) [#/Vol] 0.04 10*3/uL Normal 0.00-0.20 [facility] Comment on above: Performed By: #### L [id number] ####[facility] [place] [address] Basophils/100 WBC (Bld) 0.7 % Normal 0.0-1.0 [facility] Comment on above: Performed By: #### L [id number] ####[facility] [place] [address] Eosinophils (Bld) [#/Vol] 0.24 10*3/uL Normal 0.00-0.50 [facility] Comment on above: Performed By: #### L [id number] ####[facility] (BEAKER)[address] [place] [address] Eosinophils/100 WBC (Bld) 4.0 % Normal 0.0-6.0 [facility] Comment on above: Performed By: #### L [id number] ####[facility] ([facility])[address] [place] [address] Erythrocyte distribution width (RBC) [Ratio] 14.1 % Normal 11.5-15.0 [facility] Comment on above: Performed By: #### L [id number] ####[facility] ([facility])[address] [place] [address] ERYTHROCYTE MEAN CORPUSCULAR HEMOGLOBIN CONCENTRATION (G/DL) BY AUTOMATED 33.0 g/dL Normal 32.0-35.0 [facility] Comment on above: Performed By: #### L [id number] ####[facility] ([facility])[address] [place] [address] Hematocrit (Bld) [Volume fraction] 43.9 % Normal 36.0-55.0 [facility] Comment on above: Performed By: #### L [id number] ####[facility] ([facility])[address] [place] [address] Hemoglobin (Bld) [Mass/Vol] 14.5 g/dL Normal 12.0-17.0 [facility] Comment on above: Performed By: #### L [id number] ####[facility] [place] [address] Immature granulocytes (Bld) [#/Vol] 0.04 10*3/uL Normal 0.00-0.20 [facility] Comment on above: Performed By: #### L [id number] ####[facility] [place] [address] Immature granulocytes/100 WBC (Bld) 0.7 % Normal 0.0-1.0 [facility] Comment on above: Performed By: #### L [id number] ####[facility] (BEAKER)[address] [place] [address] Lymphocytes (Bld) [#/Vol] 2.24 10*3/uL Normal 1.20-4.00 [facility] Comment on above: Performed By: #### L [id number] ####[facility] (BEAKER)[address] [place] [address] Lymphocytes/100 WBC (Bld) 37.3 % Normal 20.0-45.0 [facility] Comment on above: Performed By: #### L [id number] ####[facility] (BEAKER)[address] [place] [address] MCH (RBC) [Entitic mass] 27.1 pg Normal 27.0-33.0 [facility] Comment on above: Performed By: #### L [id number] ####[facility] (BEAKER)[address] [place] [address] MCV (RBC) [Entitic vol] 82.1 fL Normal 82.0-98.0 [facility] Comment on above: Performed By: #### L [id number] ####[facility] (BEAKER)[address] [place] [address] Monocytes (Bld) [#/Vol] 0.47 10*3/uL Normal 0.10-1.00 [facility] Comment on above: Performed By: #### L [id number] ####[facility] (BEAKER)[address] [place] [address] Monocytes/100 WBC (Bld) 7.8 % Normal 5.0-12.0 [facility] Comment on above: Performed By: #### L [id number] ####[facility] (BEAKER)[address] [place] [address] Neutrophils (Bld) [#/Vol] 2.98 10*3/uL Normal 1.60-7.60 [facility] Comment on above: Performed By: #### L [id number] ####[facility] (BEAKER)[address] [place] [address] Neutrophils/100 WBC (Bld) 49.5 % Normal 40.0-72.0 [facility] Comment on above: Performed By: #### L [id number] ####[facility] [place] [address] NRBC (PER 100 WBCS) BY AUTOMATED COUNT 0.0 % Normal 0 [facility] Comment on above: Performed By: #### L [id number] ####[facility] [place] [address] PLATELETS (10*3/UL) IN BLOOD AUTOMATED COUNT 220 10*3/uL Normal 150-400 [facility] Comment on above: Performed By: #### L [id number] ####[facility] ([facility])[address] [place] [address] RBC (Bld) [#/Vol] 5.35 10*6/uL Normal 3.80-5.70 [facility] Comment on above: Performed By: #### L [id number] ####[facility] ([facility])[address] [place] [address] WBC (Bld) [#/Vol] 6.01 10*3/uL Normal 4.00-10.60 [facility] Comment on above: Performed By: #### L [id number] ####[facility] ([facility])[address] [place] [address] CT CHEST WO IV CONTRASTon CT CHEST WO IV CONTRAST Normal [facility] ETHANOLon 05-14-2023 ETHANOL (MG/DL) IN SER/PLAS <10 Normal [facility] Comment on above: Result Comment: No E thanol detected Performed By: #### L [id number] ####[facility] ([facility])[address] [place] [address] ETHANOL CALCULATED (%) Normal [facility] Comment on above: Performed By: #### L [id number] ####[facility] ([facility])[address] [place] [address] Follow-Upon 05-14-2023 Follow-Up Normal [facility] HEMOGLOBIN A1Con 05-14-2023 Glucose [Mass/Vol] 160 mg/dL Normal [facility] Comment on above: Performed By: #### L [id number] ####[facility] ([place])[address] [place] [address] HbA1c (Bld) [Mass fraction] 7.2 % High 4.0-6.0 [facility] Comment on above: Performed By: #### L [id number] ####[facility] ([place])[address] [place] [address] HPon 05-14-2023 HP Normal [facility] Labon 05-14-2023 Lab Normal [facility] PROTIME-INRon 05-14-2023 INR IN PPP BY COAGULATION ASSAY 0.91 Normal 0.90-1.10 [facility] Comment on above: Result Comment: ACCC P [...] CHEST 1995;108:231S-246S. Performed By: #### L [id number] ####[facility] ([facility])[address] [place] [address] PROTHROMBIN TIME (PT) IN PPP BY COAGULATION ASSAY 12.2 Seconds Low 12.3-14.8 [facility] Comment on above: Performed By: #### L [id number] ####[facility] [place] [address] TOXICOLOGY PANEL URINEon AMPHETAMINE+METHAMPH ETAMINE SCREEN (PRESENCE) IN URINE Negative Normal Negative [facility] Comment on above: Performed By: #### L [id number] ####[facility] ([facility])[address] [place] [address] BARBITURATES PRESENCE IN URINE BY SCREEN METHOD Negative Normal Negative [facility] Comment on above: Performed By: #### L [id number] ####[facility] ([facility])[address] [place] [address] Benzodiazepines Ql (U) Negative Normal Negative [facility] Comment on above: Performed By: #### L [id number] ####[facility] ([facility])[address] [place] [address] CANNABINOID (PRESENCE) IN URINE BY SCREEN METHOD Negative Normal Negative [facility] Comment on above: Performed By: #### L [id number] ####[facility] ([facility])[address] [facility] [place] [address] Cocaine Ql (U) Negative Normal Negative [facility] Comment on above: Performed By: #### L [id number] ####[facility] ([facility])[address] [facility] [place] [address] METHADONE (PRESENCE) IN URINE BY SCREEN METHOD Negative Normal Negative [facility] Comment on above: Performed By: #### L [id number] ####[facility] ([facility])[address] [facility] [place] [address] OPIATES (PRESENCE) IN URINE BY SCREEN METHOD Negative Normal Negative [facility] Comment on above: Performed By: #### L [id number] ####[facility] ([facility])[address] [facility] [facility] [place] [address] PHENCYCLIDINE PRESENCE IN URINE BY SCREEN METHOD Negative Normal Negative [facility] Comment on above: Performed By: #### L [id number] ####[facility] ([facility])[address] [place] [address] Propoxyphene Screen Ql (U) Negative Normal Negative [facility] Comment on above: Performed By: #### L [id number] ####[facility] (BEAKER)[address] [place] [address] TRICYCLIC ANTIDEPRESSANTS (PRESENCE) IN URINE Negative Normal Negative [place] [facility] Comment on above: Performed By: #### L [id number] ####[facility] (BEAKER)[address] [place] [address] TYPE AND SCREENon 05-14-2023 AB SCREEN Negative Normal [facility] Comment on above: Performed By: #### L [id number] ####[facility], ABO group Nom (Bld) A Normal [facility] Comment on above: Performed By: #### L [id number] ####[facility], RH TYPE IN BLOOD Positive Normal [facility] Comment on above: Performed By: #### L [id number] ####[facility], URINALYSISon 05-14-2023 BILIRUBIN, TOTAL PRESENCE IN URINE Negative Normal Negative [facility] Comment on above: Order Comment: Micro scopics not performed on urines with negative chemical reactions unless requested on original order. Performed By: #### L [id number] ####[facility] ([facility])[address] [place] [address] Clarity (U) Clear Normal Clear [facility] Comment on above: Order Comment: Micro scopics not performed on urines with negative chemical reactions unless requested on original order. Performed By: #### L [id number] ####[facility] (BEAKER)[address] [place] [address] Color (U) Straw Abnormal Yellow [facility] Comment on above: Order Comment: Micro scopics not performed on urines with negative chemical reactions unless requested on original order. Performed By: #### L [id number] ####[facility] [facility] ([facility])[address] [place] [address] Glucose (U) [Mass/Vol] Negative Normal Negative [facility] Comment on above: Order Comment: Micro scopics not performed on urines with negative chemical reactions unless requested on original order. Performed By: #### L [id number] ####[facility] ([facility] [place] [address] HEMOGLOBIN PRESENCE IN URINE Negative Normal Negative [facility] Comment on above: Order Comment: Micro scopics not performed on urines with negative chemical reactions unless requested on original order. Performed By: #### L [id number] ####[facility] ([facility])[address] [place] [address] Ketones Ql (U) Negative Normal Negative [facility] Comment on above: Order Comment: Micro scopics not performed on urines with negative chemical reactions unless requested on original order. Performed By: #### L [id number] ####[facility] ([facility])[address] [place] [address] LEUKOCYTE ESTERASE PRESENCE IN URINE BY TEST STRIP Negative Normal Negative [facility] Comment on above: Order Comment: Micro scopics not performed on urines with negative chemical reactions unless requested on original order. Performed By: #### L [id number] ####[facility] ([facility])[address] [place] [address] NITRITE PRESENCE IN URINE Negative Normal Negative [facility] Comment on above: Order Comment: Micro scopics not performed on urines with negative chemical reactions unless requested on original order. Performed By: #### L [id number] ####[facility] ([facility])[address] [place] [address] pH (U) 5.0 [pH] Normal 5.0-8.0 [facility] Comment on above: Order Comment: Micro scopics not performed on urines with negative chemical reactions unless requested on original order. Performed By: #### L [id number] ####[facility] (BEAKER)[address] [place] [address] Protein (U) [Mass/Vol] Negative Normal Negative [facility] Comment on above: Order Comment: Micro scopics not performed on urines with negative chemical reactions unless requested on original order. Performed By: #### L [id number] ####[facility] ([facility] [place] [address] Specific gravity (U) [Rel density] 1.013 Low 1.015-1.020 [facility] Comment on above: Order Comment: Micro scopics not performed on urines with negative chemical reactions unless requested on original order. Performed By: #### L [id number] ####[facility] (BEAKER)[address] [place] [address] 36on 03-11-2023 36 Pt going to er [facility] ANESon 02-12-2023 ANES [facility] HPon 02-12-2023 HP [facility] NURSNOTEon 02-12-2023 NURSNOTE RN educated pt on d/ c instructions. RN encouraged pt to voice any questions or concerns. Pt verbalizes no questions or concerns at this time. Pt was wheeled off of unit with all of belongings. [facility] CBC AUTO DIFFon 02-06-2023 BASO # 0.0 103/ul Normal 0.0-0.1 [facility] Comment on above: Performed By: #### C BC #### [facility] [address] [address] [address] John Bertrand Basophils/100 WBC (Bld) 0.4 % Normal 0.2-2.0 [facility] Comment on above: Performed By: #### C BC #### [facility] [address] [address] [address] John Bertrand EO # 0.2 103/ul Normal 0.0-0.7 [facility] Comment on above: Performed By: #### C BC #### [facility] [address] [address] [address] John Bertrand Eosinophils/100 WBC (Bld) 3.1 % Normal 0.9-7.0 [facility] Comment on above: Performed By: #### C BC #### [facility] [address] [place] [address] Dr. John Bertrand Erythrocyte distribution width (RBC) [Ratio] 13.9 % Normal 11.0-15.0 [facility] Comment on above: Performed By: #### C BC #### [facility] [address] [place] [address] Dr. John Bertrand Hematocrit (Bld) [Volume fraction] 43.8 % Normal 42.0-54.0 [facility] Comment on above: Performed By: #### C BC #### [facility] [address] [place] [address] Dr. John Bertrand Hemoglobin (Bld) [Mass/Vol] 14.4 g/dL Normal 14.0-18.0 [facility] Comment on above: Performed By: #### C BC #### [facility] [address] [place] [address] Dr. John Bertrand IG # 0.01 10e3/ul Normal 0.00-0.03 [facility] Comment on above: Performed By: #### C BC #### [facility] [address] [place] [address] Dr. John Bertrand IG % 0.2 % Normal 0.0-0.5 [facility] Comment on above: Performed By: #### C BC #### [facility] [address] [place] [address] Dr. John Bertrand LYMPH # 2.3 103/ul Normal 1.2-3.8 [facility] Comment on above: Performed By: #### C BC #### [facility] [address] [place] [address] Dr. John Bertrand Lymphocytes/100 WBC (Bld) 41.1 % Normal 20.5-60.0 [facility] Comment on above: Performed By: #### C BC #### [facility] [address] [place] [address] Dr. John Bertrand MANUAL DIFF REQ NO Normal [facility] Comment on above: Performed By: #### C BC #### [facility] [address] [place] [address] Dr. John Bertrand MCH (RBC) [Entitic mass] 27.6 pg Normal 25.9-34.0 [facility] Comment on above: Performed By: #### C BC #### [facility] [address] [address] [address] John Bertrand MCHC (RBC) [Mass/Vol] 32.9 g/dL Normal 29.9-35.2 [facility] Comment on above: Performed By: #### C BC #### [facility] [address] [place] [address] Dr. John Bertrand MCV (RBC) [Entitic vol] 83.9 fL Normal 80.0-94.0 [facility] Comment on above: Performed By: #### C BC #### [facility] [address] [place] [address] Dr. John Bertrand MONO # 0.5 103/ul Normal 0.3-0.8 [facility] Comment on above: Performed By: #### C BC #### [facility] [address] [place] [address] Dr. John Bertrand Monocytes/100 WBC (Bld) 9.0 % Normal 1.7-12.0 [facility] Comment on above: Performed By: #### C BC #### [facility] [address] [place] [address] Dr. John Bertrand NEUT # 2.5 103/ul Normal 1.4-6.5 [facility] Comment on above: Performed By: #### C BC #### [facility] [address] [place] [address] Dr. John Bertrand Neutrophils/100 WBC (Bld) 46.2 % Normal 43.0-75.0 [facility] Comment on above: Performed By: #### C BC #### [facility] [address] [place] [address] Dr. John Bertrand Platelet mean volume (Bld) [Entitic vol] 9.6 fL Normal 9.5-13.5 [facility] Comment on above: Performed By: #### C BC #### [facility] [address] [place] [address] Dr. John Bertrand PLT 223 103/ul Normal 150-450 [facility] Comment on above: Performed By: #### C BC #### [facility] [address] [place], [place] [id number] Dr. John Bertrand RBC 5.22 106/ul Normal 4.70-6.10 [facility] Comment on above: Performed By: #### C BC #### [facility] [address] [place] [address] Dr. John Bertrand WBC 5.5 103/ul Normal 4.0-11.0 [facility] Comment on above: Performed By: #### C BC #### [facility] [address] [place] [address] Dr. John Bertrand PROF CHEM 8 (BAS METB)on Anion gap [Moles/Vol] 9.3 mmol/L Normal [facility] Comment on above: Performed By: #### B MP #### [facility] [address] [place] [address] Dr. John Bertrand Calcium [Mass/Vol] 8.7 mg/dL Normal 8.5-10.1 [facility] Comment on above: Performed By: #### B MP #### [facility] [address] [place] [address] Dr. John Bertrand Chloride [Moles/Vol] 105 mmol/L Normal 98-107 [facility] Comment on above: Performed By: #### B MP #### [facility] [address] [place] [address] Dr. John Bertrand CO2 [Moles/Vol] 27.6 mmol/L Normal 21.0-32.0 [facility] Comment on above: Performed By: #### B MP #### [facility] [address] [place] [address] Dr. John Bertrand Creatinine [Mass/Vol] 1.28 mg/dL Normal 0.70-1.30 [facility] Comment on above: Performed By: #### B MP #### [facility] [address] [place] [address] Dr. John Bertrand EGFR-AF VINCENTIAN >60 Normal >=60 [facility] Comment on above: Performed By: #### B MP #### [facility] [address] [place] [address] Dr. John Bertrand EGFR-NON AF VINCENTIAN 58 mL/min/1.73m2 Critically low >=60 [facility] Comment on above: Performed By: #### B MP #### [facility] [address] [address] [address] John Bertrand Glucose [Mass/Vol] 137 mg/dL Critically high 74-106 [facility] Comment on above: Performed By: #### B MP #### [facility] [address] [address] [address] John Bertrand Potassium [Moles/Vol] 3.9 mmol/L Normal 3.5-5.1 [facility] Comment on above: Performed By: #### B MP #### [facility] [address] [place] [address] Dr. John Bertrand Sodium [Moles/Vol] 138 mmol/L Normal 136-145 [facility] Comment on above: Performed By: #### B MP #### [facility] [address] [place] [address] Dr. John Bertrand Urea nitrogen [Mass/Vol] 16.0 mg/dL Normal 7.0-18.0 [facility] Comment on above: Performed By: #### B MP #### [facility] [address] [place] [address] Dr. John Bertrand Urea nitrogen/Creatinine [Mass ratio] 12.5 mg/mg Normal [facility] Comment on above: Performed By: #### B MP #### [facility] [address] [place] [address] Dr. John Bertrand CBC AUTO DIFFon 01-14-2023 BASO # 0.0 103/ul Normal 0.0-0.1 [facility] Comment on above: Performed By: #### C BC #### [facility] [address] [place] [address] Dr. John Bertrand Basophils/100 WBC (Bld) 0.6 % Normal 0.2-2.0 [facility] Comment on above: Performed By: #### C BC #### [facility] [address] [place] [address] Dr. John Bertrand EO # 0.1 103/ul Normal 0.0-0.7 [facility] Comment on above: Performed By: #### C BC #### [facility] [address] [place] [address] Dr. John Bertrand Eosinophils/100 WBC (Bld) 2.7 % Normal 0.9-7.0 [facility] Comment on above: Performed By: #### C BC #### [facility] [address] [place] [address] Dr. John Bertrand Erythrocyte distribution width (RBC) [Ratio] 13.9 % Normal 11.0-15.0 [facility] Comment on above: Performed By: #### C BC #### [facility] [address] [place] [address] Dr. John Bertrand Hematocrit (Bld) [Volume fraction] 44.8 % Normal 42.0-54.0 [facility] Comment on above: Performed By: #### C BC #### [facility] [address] [place] [address] Dr. John Bertrand Hemoglobin (Bld) [Mass/Vol] 14.8 g/dL Normal 14.0-18.0 [facility] Comment on above: Performed By: #### C BC #### [facility] [address] [place] [address] Dr. John Bertrand IG # 0.01 10e3/ul Normal 0.00-0.03 [facility] Comment on above: Performed By: #### C BC #### [facility] [address] [place] [address] Dr. John Bertrand IG % 0.2 % Normal 0.0-0.5 [facility] Comment on above: Performed By: #### C BC #### [facility] [address] [place] [address] Dr. John Bertrand LYMPH # 1.9 103/ul Normal 1.2-3.8 [facility] Comment on above: Performed By: #### C BC #### [facility] [address] [place] [address] Dr. John Bertrand Lymphocytes/100 WBC (Bld) 37.0 % Normal 20.5-60.0 [facility] Comment on above: Performed By: #### C BC #### [facility] [address] [place] [address] Dr. John Bertrand MANUAL DIFF REQ NO Normal [facility] Comment on above: Performed By: #### C BC #### [facility] [address] [place] [address] Dr. John Bertrand MCH (RBC) [Entitic mass] 27.2 pg Normal 25.9-34.0 [facility] Comment on above: Performed By: #### C BC #### [facility] [address] [place] [address] Dr. John Bertrand MCHC (RBC) [Mass/Vol] 33.0 g/dL Normal 29.9-35.2 [facility] Comment on above: Performed By: #### C BC #### [facility] [address] [place] [address] Dr. John Bertrand MCV (RBC) [Entitic vol] 82.4 fL Normal 80.0-94.0 [facility] Comment on above: Performed By: #### C BC #### [facility] [address] [place] [address] Dr. John Bertrand MONO # 0.5 103/ul Normal 0.3-0.8 [facility] Comment on above: Performed By: #### C BC #### [facility] [address] [place] [address] Dr. John Bertrand Monocytes/100 WBC (Bld) 8.8 % Normal 1.7-12.0 [facility] Comment on above: Performed By: #### C BC #### [facility] [address] [place] [address] Dr. John Bertrand NEUT # 2.7 103/ul Normal 1.4-6.5 [facility] Comment on above: Performed By: #### C BC #### [facility] [address] [place] [address] Dr. John Bertrand Neutrophils/100 WBC (Bld) 50.7 % Normal 43.0-75.0 [facility] Comment on above: Performed By: #### C BC #### [facility] [address] [address] [address] John Bertrand Platelet mean volume (Bld) [Entitic vol] 9.5 fL Normal 9.5-13.5 [facility] Comment on above: Performed By: #### C BC #### [facility] [address] [address] [address] John Bertrand PLT 235 103/ul Normal 150-450 [facility] Comment on above: Performed By: #### C BC #### [facility] [address] [address] [address] John Bertrand RBC 5.44 106/ul Normal 4.70-6.10 [facility] Comment on above: Performed By: #### C BC #### [facility] [address] [address] [address] John Bertrand WBC 5.3 103/ul Normal 4.0-11.0 [facility] Comment on above: Performed By: #### C BC #### [facility] [address] [address] [address] John Bertrand FREE THYROXINE INDEX T7on FTI 2.16 Normal 1.30-4.50 [facility] Comment on above: Performed By: #### T SH, CMP, T7, LIPID ####[facility] [address] [place], [place] [address]FhDr. John Bertrand T3U 36.0 % Normal 33.0-40.0 [facility] Comment on above: Performed By: #### T SH, CMP, T7, LIPID ####[facility] [address] [place], [place] [address]WbDr. John Bertrand T4 [Mass/Vol] 6.00 ug/dL Normal 4.50-12.10 [facility] Comment on above: Performed By: #### T SH, CMP, T7, LIPID ####[facility] [address] [place], [place] [address]RhDr. John Bertrand GLYCOHEMOGLOBIN A1Con 2022 ADA RECOMMENDATION SEE BELOW Normal [facility] Comment on above: Result Comment: ADA RECOMMENDED LIMIT 4.0 - 6.0 ADA THERAPEUTIC TARGET < 7.0 ACTION SUGGESTED > 7.0 Performed By: #### A 1C #### [facility] [address] [address] [address] John Bertrand Glucose [Mass/Vol] 154 mg/dL Normal [facility] Comment on above: Performed By: #### A 1C #### [facility] [address] [address] [address] John Bertrand HbA1c (Bld) [Mass fraction] 7.0 % Critically high 4.5-6.2 [facility] Comment on above: Performed By: #### A 1C #### [facility] [address] [place] [address] Dr. John Bertrand HPon 01-14-2023 HP Normal [facility] LIPID PROFILEon 01-14-2023 CHOL-HDL RATIO NORM SEE BELOW Normal [facility] Comment on above: Result Comment: 3.3 - 4.4 LOW RISK 4.4 - 7.1 AVERAGE RISK 7.1 - 11.0 MODERATE RISK >11.0 HIGH RISK Performed By: #### T SH, CMP, T7, LIPID ####[facility] [address] [address]Dr. John Bertrand Cholesterol [Mass/Vol] 151 mg/dL Normal <=200 [facility] Comment on above: Performed By: #### T SH, CMP, T7, LIPID ####[facility] [address] [id number][address] John Bertrand Cholesterol in HDL [Mass/Vol] 36 mg/dL Critically low 40-60 [facility] Comment on above: Performed By: #### T SH, CMP, T7, LIPID ####[facility] [address] [id number]. John Bertrand Cholesterol in LDL [Mass/Vol] 101.4 mg/dL Normal [facility] Comment on above: Performed By: #### T SH, CMP, T7, LIPID ####[facility] [address] [address]Dr. John Bertrand Cholesterol.total/Ch olesterol in HDL [Mass ratio] 4.2 {ratio} Normal [facility] Comment on above: Performed By: #### T SH, CMP, T7, LIPID ####[facility] [address] [address]Dr. John Bertrand HDL NORMAL > or = 60 mg/dl - LO W CARDIOVASCULAR RISK <40 mg/dl - HIGH CARDIOVASCULAR RISK Normal [facility] Comment on above: Performed By: #### T SH, CMP, T7, LIPID ####[facility] [address] [address]Dr. John Bertrand LDL CALC NORMAL SEE BELOW Normal [facility] Comment on above: Result Comment: <100 mg/dl OPTIMAL 100 - 129 mg/dl NEAR OR ABOVE OPTIMAL 130 - 159 mg/dl BORDERLINE HIGH 160 - 189 mg/dl HIGH >190 mg/dl VERY HIGH Performed By: #### T SH, CMP, T7, LIPID ####[facility] [address] [address]Dr. John Bertrand Triglyceride [Mass/Vol] 68 mg/dL Normal <=150 [facility] Comment on above: Performed By: #### T SH, CMP, T7, LIPID ####[facility] [address] [address]Dr. John Bertrand VLDL CALC 13.6 mg/dL Normal [facility] Comment on above: Performed By: #### T SH, CMP, T7, LIPID ####[facility] [address] [address]Dr. John Bertrand PROF 14(COMP METB)on 023 Albumin [Mass/Vol] 3.8 g/dL Normal 3.4-5.0 [facility] Comment on above: Performed By: #### T SH, CMP, T7, LIPID ####[facility] [address] [address]Dr. John Bertrand Albumin/Globulin [Mass ratio] 1.1 {ratio} Normal [facility] Comment on above: Performed By: #### T SH, CMP, T7, LIPID ####[facility] [address] [address]Dr. John Bertrand ALP [Catalytic activity/Vol] 71 U/L Normal 46-116 [facility] Comment on above: Performed By: #### T SH, CMP, T7, LIPID ####[facility] [address] [address]Dr. John Bertrand ALT [Catalytic activity/Vol] 80 U/L Critically high 16-63 [facility] Comment on above: Performed By: #### T SH, CMP, T7, LIPID ####[facility] [address] [address]Dr. John Bertrand Anion gap [Moles/Vol] 11.2 mmol/L Normal [facility] Comment on above: Performed By: #### T SH, CMP, T7, LIPID ####[facility] [address] [place], [place] [address]Dr. John Bertrand AST [Catalytic activity/Vol] 39 U/L Critically high 15-37 [facility] Comment on above: Performed By: #### T SH, CMP, T7, LIPID ####[facility] [address] [place], [place] [address]Dr. John Bertrand Bilirubin [Mass/Vol] 0.4 mg/dL Normal 0.2-1.0 [facility] Comment on above: Performed By: #### T SH, CMP, T7, LIPID ####[facility] [address] [address]Dr. John Bertrand Calcium [Mass/Vol] 9.2 mg/dL Normal 8.5-10.1 [facility] Comment on above: Performed By: #### T SH, CMP, T7, LIPID ####[facility] [address] [place], [place] [address]Dr. John Bertrand Chloride [Moles/Vol] 107 mmol/L Normal 98-107 [facility] Comment on above: Performed By: #### T SH, CMP, T7, LIPID ####[facility] [address] [address]Dr. John Bertrand CO2 [Moles/Vol] 26.8 mmol/L Normal 21.0-32.0 [facility] Comment on above: Performed By: #### T SH, CMP, T7, LIPID ####[facility] [address] [address]Dr. John Bertrand Creatinine [Mass/Vol] 1.21 mg/dL Normal 0.70-1.30 [facility] Comment on above: Performed By: #### T SH, CMP, T7, LIPID ####[facility] [address] [address]Dr. John Bertrand EGFR-AF VINCENTIAN >60 Normal >=60 [facility] Comment on above: Performed By: #### T SH, CMP, T7, LIPID ####[facility] [address] [address]Dr. John Bertrand EGFR-NON AF VINCENTIAN >60 Normal >=60 [facility] Comment on above: Performed By: #### T SH, CMP, T7, LIPID ####[facility] [address] [address]Dr. John Bertrand Globulin (S) [Mass/Vol] 3.5 g/dL Normal [facility] Comment on above: Performed By: #### T SH, CMP, T7, LIPID ####[facility] [facility] [id number] [place] [address]Dr. John Bertrand Glucose [Mass/Vol] 140 mg/dL Critically high 74-106 [facility] Comment on above: Performed By: #### T SH, CMP, T7, LIPID ####[facility] [id number] [place] [address]Dr. John Bertrand Potassium [Moles/Vol] 4.0 mmol/L Normal 3.5-5.1 [facility] Comment on above: Performed By: #### T SH, CMP, T7, LIPID ####[facility] [id number] [place] [address]Dr. Nataliebrenda Bertrand Protein [Mass/Vol] 7.3 g/dL Normal 6.4-8.2 The [facility] Comment on above: Performed By: #### T SH, CMP, T7, LIPID ####[facility] [address] [place], [place] [address]Cj. John Bertrand Sodium [Moles/Vol] 141 mmol/L Normal 136-145 [facility] Comment on above: Performed By: #### T SH, CMP, T7, LIPID ####[facility] [address] [place], [place] [address]Ye. John Bertrand Urea nitrogen [Mass/Vol] 11.0 mg/dL Normal 7.0-18.0 [facility] Comment on above: Performed By: #### T SH, CMP, T7, LIPID ####[facility] [id number] [place] [id number]. John Bertrand Urea nitrogen/Creatinine [Mass ratio] 9.1 mg/mg Normal [facility] Comment on above: Performed By: #### T SH, CMP, T7, LIPID ####[facility] [id number] [place] [id number]. John Bertrand TSHon 01-14-2023 TSH 1.532 uIU/mL Normal 0.358-3.740 [facility] Comment on above: Performed By: #### T SH, CMP, T7, LIPID ####[facility] [id number] [place] [id number]. John Bertrand Physician Referralon 023 Physician Referral [phone] [id number] Normal [facility] CT ABD/PELV W CONon 12-17-[address] [...] by: GLORIA STRANGE Date: 2022-12-16 09:20 Normal [facility] ECHOCARDIO M/2D COMPLETEon 0 12-16-2022 ECHOCARDIO M/2D COMPLETE Patient: FLYNN ARNETT Exam Date: 12/16/2022 : 1965 Gender:M Ordering : DR LAUREN VELASQUEZ . Admission #: [id number] Family : Order #: [id number] CLICK HERE TO VIEW EXAM ECHOCARDIOGRAM REPORT [...] Adonis Jacob M.D. on 12/16/2022 at 12:11 [facility] Covid-19 PCR ([facility]on SARS-CoV-2 (COVID-19) RNA THALIA+probe Ql (Unsp spec) Not detected Normal NOT DETECTED [facility] Comment on above: Result Comment: This test is not yet approved or cleared by the [place] FDA. When there are no FDA-approved or cleared tests available, and other criteria are met, FDA can make tests available under an emergency access mechanism called an Emergency Use Authorization (EUA). The EUA for this test is supported by the [place] of Health and Human Service's (HHS's) declaration [...] consistent with SARS-CoV-2. Performed By: #### C VDTB #### [facility] [address] [place] [address] Dr. John Bertrand INFLUENZA A AND B [facility]on 03-[facility] Normal [facility] Comment on above: Result Comment: Nega tive for Flu A protein angiten. Infection due to Flu A cannot be ruled out. Flu A angiten in the sample may be below the detection limit of the test. Performed By: #### I NFLUAB #### [facility] [address] [place] [address] Dr. John Bertrand [facility] SEE BELOW Normal [facility] Comment on above: Result Comment: Nega tive for Flu B protein antigen. Infection due to Flu B cannot be ruled out. Flu B antigen in the sample may be below the detection limit of the test. Performed By: #### I NFLUAB #### [facility] [address] [place] [address] Dr. John Bertrand INFLUENZA A AG Negative Normal NEGATIVE SEE COMMENT [facility] Comment on above: Performed By: #### I NFLUAB #### [facility] [address] [place] [address] Dr. John Bertrand INFLUENZA B AG Negative Normal NEGATIVE SEE COMMENT [facility] Comment on above: Performed By: #### I NFLUAB #### [facility] [address] [place] [address] Dr. John Bertrand INTERNAL CONTROLS Within Normal Limits Normal Wi thin Normal Limits [facility] Comment on above: Performed By: #### I NFLUAB #### [facility] [address] [place] [address] Dr. John Bertrand SYMPTOMATIC COVID-19 ANTIGEN on 03-06-2022 EUA Statement SEE BELOW Normal [facility] Comment on above: Result Comment: This test [...] sooner. Performed By: #### C VDAGS #### [facility] [address] [place] [address] Dr. John Bertrand SARS-CoV-2 (COVID-19) RNA THALIA+probe Ql (Unsp spec) Negative Normal NEGATIVE [facility] Comment on above: Performed By: #### C VDAGS #### [facility] [address] [place], [place] [id number] Dr. John Bertrand Vital Signs Date Time Vital Sign Value Performing Clinician Facility 05-10-2023 09:20-0400 Body height 175.26 cm Monica Jackson Other [facility] Other 05-10-2023 09:20-0400 Body mass index (BMI) [Ratio] 33.96 kg/m2 Monica Jackson Other [facility] Other 05-10-2023 09:20-0400 Body temperature 99 [degF] Monica Jackson Other [facility] Other 05-10-2023 09:20-0400 Body weight 104.33 kg Monica Jackson Other [facility] Other 05-10-2023 09:20-0400 Diastolic blood pressure 102 mm[Hg] Monica Jackson Other [facility] Other 05-10-2023 09:20-0400 Respiratory rate 18 /min Monica Jackson Other [facility] Other 05-10-2023 09:20-0400 SaO2% (BldA) [Mass fraction] 97 % Monica Jackson Other [facility] Other 05-10-2023 09:20-0400 Systolic blood pressure 141 mm[Hg] Monica Jackson Other [facility] Other 01-09-2023 15:29-0400 Blood Pressure Location Colt MYERSL [facility] 01-09-2023 15:29-0400 Diastolic blood pressure 98 mm[Hg] Colt MYERSL [facility] [place] 01-09-2023 15:29-0400 Heart rate 80 /min Colt MYERSL [facility] 01-09-2023 15:29-0400 Respiratory rate 16 /min Colt STUART [facility] [place] 01-09-2023 15:29-0400 Systolic blood pressure 146 mm[Hg] Colt STUART [facility] [place] Encounters Encounter Date Encounter Type Care Provider Facility Start: 10-29-2023 End: 10-29-20[facility] Start: 06-30-2023 End: 07-02-2023 ambulatory [facility] Start: 06-18-2023 ambulatory [facility] Start: 06-05-2023 Evaluation and manag ement of inpatient AISSATOU Foreman [facility] Start: 06-05-2023 Evaluation and manag ement of inpatient AISSATOU Foreman [facility] Start: 06-04-2023 Evaluation and manag ement of inpatient AISSATOU Foreman [facility] Start: 06-04-2023 Evaluation and manag ement of inpatient [facility] Start: 06-03-2023 Evaluation and manag ement of inpatient [facility] Start: 06-02-2023 Evaluation and manag ement of inpatient [facility] Start: 06-02-2023 Evaluation and manag ement of inpatient [facility] Start: 06-01-2023 Evaluation and manag ement of inpatient AISSATOU Foreman [facility] Start: 06-01-2023 [facility] Start: 06-01-2023 Evaluation and manag ement of inpatient AISSATOU Foreman [facility] Start: 05-31-2023 [facility] Start: 05-31-2023 Evaluation and manag ement of inpatient AISSATOU Foreman [facility] Start: 05-31-2023 Evaluation and manag ement of inpatient AISSATOU J [facility] Start: 05-31-2023 Evaluation and manag ement of inpatient AISSATOU WILLIAMSON [facility] Start: 05-30-2023 Evaluation and manag ement of inpatient AISSATOU STONEREYNAJACQUELINE [facility] Start: 05-30-2023 Evaluation and manag ement of inpatient [facility] Start: 05-30-2023 Evaluation and manag ement of inpatient AISSATOU STONEWABLANCA [facility] Start: 05-30-2023 [facility] Start: 05-29-2023 Evaluation and manag ement of inpatient AISSATOU STONEWABLANCA [facility] Start: 05-29-2023 Evaluation and manag ement of [facility] Start: 05-29-2023 Evaluation and manag ement of inpatient ASISATOU Foreman CHASEWAAJNIXONJER [facility] Start: 05-28-2023 Evaluation and manag ement of inpatient [facility] Start: 05-28-2023 Evaluation and manag ement of inpatient [facility] Start: 05-28-2023 Evaluation and manag ement of inpatient [facility] Start: 05-27-2023 Evaluation and manag ement of inpatient [facility] Start: 05-27-2023 Evaluation and manag ement of inpatient AISSATOU STONEOLIVIAJACKJER [facility] Start: 05-27-2023 End: 06-05-2023 Evaluation and management of inpatient [facility] Start: 05-14-2023 End: 05-15-2023 ambulatory [facility] Start: 05-14-2023 ambulatory AISSATOU J TERI [facility] Start: 05-14-2023 End: 05-14-2023 ambulatory [facility] Start: 05-14-2023 End: 05-14-2023 Encounter for preprocedural cardiovascular examination [facility] Start: 05-14-2023 End: 05-14-2023 ambulatory [facility] Start: 05-10-2023 End: 05-10-2023 ambulatory Monica Jackson Other [facility] Other Start: 05-10-2023 Office outpatient ne w 20 minutes [address] [facility] Start: 04-30-2023 End: 05-01-2023 ambulatory [facility] Start: 03-24-2023 ambulatory [facility] Start: 02-12-2023 End: 02-12-2023 ambulatory [facility] Start: 02-12-2023 Encounter for other preprocedural examination DR ADONIS JACOB [facility] Start: 02-12-2023 Encounter for preprocedural laboratory examination DR SANCHEZ PACO [facility] Start: 02-06-2023 End: 02-07-[address] LAUREN VELASQUEZ . Facility:[facility] Start: 02-06-2023 End: 02-07-2023 Encounter for preprocedural laboratory examination DR LAUREN VELASQUEZ . Facility:[facility] Start: 01-20-2023 Encounter for genera l adult medical examination without abnormal findings DR LAUREN VELASQUEZ . [facility] Start: 01-14-2023 End: 01-15-[address] LAUREN VELASQUEZ . Facility:[facility] Start: 01-14-2023 End: 01-15-2023 Encounter for general adult medical examination without abnormal findings DR LAUREN VELASQUEZ . Facility: Start: 01-09-2023 End: 01-10-2023 [facility] Start: 01-09-2023 End: 01-09-2023 Patient encounter procedure Colt STUART [facility] Start: 12-16-2022 End: 12-17-[address] LAURNE VELASQUEZ . Facility: Start: 03-06-2022 End: 03-06-[address] LAUREN VELASQUEZ . Facility: Procedures Date Procedure Procedure Detail Performing Clinician Start: 06-30-2023 Follow-up visit FER GILLIAMCK Start: 06-18-2023 Follow-up visit FER LOYOLA Start: 03-24-2023 Follow-up visit FER LOYOLA Start: 01-14-2023 Follow-up visit FER LOYOLA Start: 01-14-2023 PSA screening MONICA SANTOS Comment on above: Performed By: #### P [facility] #### [facility] [address] [place] [address] Dr. John Bertrand Open reduction of fracture with internal fixation Colt STUART Comment on above: right arm Immunizations Immunization Date Immunization Notes Care Provider Fa cility NEGATED: Highlighted row has not occurred!01-09-2023 influenza virus vaccine, unspecified formulation Colt STUART [facility] [place] NEGATED: Highlighted row has not occurred!01-09-2023 SARS-CoV-2 mRNA (tozinameran 5y-11y) vaccine Colt STUART [facility] Payers Date Payer Category Payer Unknown [id number] [id number] [id number] 1965 Unknown [id number] 2.16.84 [id number] 1965 Unknown [id number] 2.16.84 [id number] 1965 Unknown [id number] 2.16.84 [id number] 1965 Unknown [id number] 2.16.84 [id number] 1965 Unknown [id number] 2.16.84 [id number] 1957 Self-pay [id number] 1957 Unknown [id number] 1957 Unknown [id number] Social History Date Type Detail Facility Start: 01-09-2023 Tobacco smoking status Never s moked tobacco (finding) [facility] [place] Tobacco smoking status Never Gener [facility] [place] Sex Assigned At Male [facility] Functional Status Date Assessment Result Facility 01-09-2023 Functional Status N/A [facility] [place] Clinical Notes 12-18-2022 to 10-29-2023 Note Date & Type Note Facility 10-29-2023 Note [facility] 10-29-2023 Note [facility] 06-30-2023 Note [facility] 06-18-2023 Note [facility] 06-05-2023 Note [facility] 06-05-2023 Note [facility] 06-04-2023 Note [facility] 06-04-2023 Note [facility] 06-04-2023 Note [facility] 06-04-2023 Note [facility] 06-03-2023 Note [facility] 06-03-2023 Note [facility] 06-03-2023 Note [facility] 06-03-2023 Note [facility] 06-03-2023 Note [facility] 06-03-2023 Note [facility] 06-02-2023 [facility] 06-02-2023 [facility] 06-02-2023 [facility] 06-02-2023 [facility] 06-02-2023 [facility] 06-02-2023 [facility] 06-02-2023 [facility] 06-02-2023 [facility] 06-01-2023 [facility] 06-01-2023 Note [facility] 06-01-2023 Note [facility] 06-01-2023 Note [facility] 06-01-2023 Note [facility] 06-01-2023 Note [facility] 06-01-2023 Note [facility] 05-31-2023 Note [facility] 05-31-2023 Note [facility] 05-31-2023 Note [facility] 05-31-2023 Note [facility] 05-31-2023 Note [facility] 05-30-2023 Note [facility] 05-30-2023 Note [facility] 05-30-2023 Note [facility] 05-30-2023 Note [facility] 05-29-2023 Note [facility] 05-29-2023 Note Physical Therapy Can cellation note for 05/29/2023Thursday Pt per nursing had one chest tube pulled but they are waiting for chest xray before pt can be seen . Legal Department Manager will recheck time permitting . Attempted time : 13:50-13:55 [facility] 05-29-2023 Note Occupational Therapy Occupational Therapy Treatment Patient Name: Flynn Arnett : 1965 Today's Date: 05/29/2023 Pt's chest tube being pulled at this time, will re attempt after x ray has been completed. BROCK [facility] 05-29-2023 Note [facility] 05-29-2023 Note [facility] 05-28-2023 Note [facility] 05-28-2023 Note [facility] 05-28-2023 Note [facility] 05-28-2023 Note [facility] 05-28-2023 Note [facility] 05-27-2023 Note [facility] 05-27-2023 Note [facility] 05-27-2023 Note [facility] 05-22-2023 Note [facility] 05-14-2023 Note [facility] 05-10-2023 Evaluation note Encounter Date Diagnosis Assessment [...] tomorrow. You may also follow-up with an supervisor of research if no improvement. Go to the ER for worsening symptoms or concerns May, Left ear impacted cerumen (ICD-10 - H61.22) Cerumen impaction home care material was printed May, Right ear impacted cerumen (ICD-10 - H61.21) [facility] NoteChief Complaint consultation for umbilical hernia HPI [...] [place] Only if needed [address] [place] [address]- Additional Instructions: Problem List/Past Medical [...] Tobacco - Denies T (more content not included)...[facility] Comment on above:Result Comment: Electronically Signed By: Colt STUART MD\.br\Date and Time Signed: 01/09/23 15:56 [id number] Hospital Discharge instructions Follow Up Care 12/18/2022 13:20:00 With:Colt STUART MD, SUR Address: [address] [place], [place] [id number]- When: only if needed [facility] [place] Evaluation + Plan note No data available for this section [facility] [place] History general Narrative - Reported* Type Description Date Medical History GERD Medical History HYPERLIPIDEMIA Hospitalization History KNEE CELLULITIS [facility] Other Progress note No data available for this section [facility] [place] Summary Purpose Family History No Family History Records FoundNo Family History Records FoundNo Family History Records Found Advance Directives No Advanced Directives Records FoundNo Advanced Directives Records FoundNo Advanced Directives Records Found Additional Source Comments Patient Care team informatio n (unrecognized section and content) Personnel Name: Lauren Velasquez MD Address: Address: [address] [place] [address]- (unrecognized sect ion and content) No Status Records FoundNo Status Records FoundNo Status Records Found INFORMATION SOURCE (unrecogn ized section and content) DATE CREATED AUTHOR 01/11/2023 [facility] DATE CREATED AUTHOR AUTHOR'S ORGANIZ ATION 02/13/2023 [facility] DATE CREATED AUTHOR AUTHOR'S ORGANIZ ATION 11/22/2023 [facility] REASON FOR VISIT (unrecogniz ed section and [...] BE BASED ON THE PRIMARY CLINICAL RECORDS. [facility] [employer] [facility]. provides no warranty or guarantee of the accuracy or completeness of information in this document.
== END 2024-04-08 14:01 | disposition home or self-care (01) ==
LOC: CARD 14:00
PROVIDERS: PCP Family Medicine; Visit Provider Nurse Practitioner Family
DX: I71.21 Aneurysm of the ascending aorta, without rupture (principal)
CPT/HCPCS: 93306

== ENCOUNTER 2024-11-19 07:12 | Outpatient (OUT) | payer BC, SELFPAY ==
--- OUTSIDE RECORDS SUMMARY | 2024-11-19 07:14 | XMS_ITS | CCD ---
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] Onset: 05-27-2023 Chronic Congestive heart failure; nonhypertensive (2 sources) Chronic diastolic (congestive) heart failure; Translations: [Chronic diastolic (congestive) heart failure] Onset: 04-15-2024 Chronic Diabetes mellitus without complication (3 sources) Diabetes mellitus; Translations: [Type 2 diabetes mellitus without complications] Onset: 10-27-2024 12-19-2022 Chronic Diabetes mellitus without complication (1 source) Prediabetes 01-14-2020 Episodic Disorders of lipid metabolism (1 source) Hyperlipidemia 12-19-2022 Chronic Diverticulosis and diverticulitis (1 source) Diverticulosis of intestine, part unspecified, without perforation or abscess without bleeding; Translations: [DVRTCLOS PRT UNS NO PERF/ABSC NO BL] Onset: 12-22-2022 Chronic Esophageal disorders (1 source) Gastroesophageal reflux disease 12-19-2022 Chronic Essential hypertension (2 sources) Essential (primary) hypertension; Translations: [Essential (primary) hypertension] Onset: 05-28-2023 Chronic Heart valve disorders (2 sources) Rheumatic mitral valve disease, unspecified; Translations: [Rheumatic mitral valve disease, unspecified] Onset: 05-31-2023 Chronic Heart valve disorders (4 sources) Heart murmur; Translations: [Cardiac murmur, unspecified] Onset: 12-22-2022 12-19-2022 Episodic Other ear and sense organ disorders [...] metabolic disorders (1 source) Obesity 02-12-2015 Chronic Other screening for suspected conditions (not mental disorders or infectious disease) (1 source) Encounter for screening for malignant neoplasm of prostate; Translations: [ENC SCREEN MALIG NEOPLASM PROSTATE] Onset: 01-20-2023 Episodic Residual codes; unclassified (2 sources) Other specified postprocedural states; Translations: [Other specified postprocedural states] Onset: 10-27-2024 Episodic Unclassified (1 source) Aneurysm of the ascending aorta, without rupture; Translations: [Aneurysm of the ascending aorta, without rupture] Onset: 10-30-2023 Past or Other Problems Problem Classification Problem Date Documented Da te Episodic/Chronic Fever of unknown origin (1 source) Fever, unspecified; Translations: [FEVER UNSPECIFIED] Onset: 03-12-2022 Episodic Other gastrointestinal disorders (4 sources) Diarrhea, unspecified; Translations: [DIARRHEA UNSPECIFIED] Onset: 03-06-2022 Episodic Unclassified (1 source) Aneurysm of the ascending aorta, without rupture; Translations: [Aneurysm of the ascending aorta, without rupture] Onset: 04-15-2024 Results Test Name Value Interpretation Reference Range Facility Office Visiton 10-27-2024 Follow-up visit [id number] Flynn Arnett 1965 M Date Provider Department Center 10/27/2024 Jarrod-ADONIS WEBSTER MIKEY Alejandro [facility] Family History Problem Relation Age of Onset No Known Problems Mother No Known Problems Father Family Status - Relation Status Age at Mother Father Level of Service:10888 [place] OFFICE/OUTPATIENT ESTABLISHED MOD MDM 30 MIN [facility] Office Vis[facility] 04-15-2024 Follow-up visit [id number] Flynn Arnett 1965 M Date Provider Department Center 04/15/2024 TANK BECKHAM CARD Flavia [facility] Family History Problem Relation Age of Onset No Known Problems Mother No Known Problems Father Family Status - Relation Status Age at Mother Father Level of Service:76330 [place] OFFICE/OUTPATIENT ESTABLISHED MOD MDM 30 MIN [facility] 36on 11-20-2023 36 Reviewed his labs. His kidney function slightly bumped so he's probably on the dryer side. We can have him go back to 20mg daily and he can take an extra tablet for a few days when he feels more short of breath. Repeat BMP in 2-4 weeks. Thanks! [facility] 36on 11-05-2023 36 If he is feeling better on the increased dose of lasix would like for him to get a follow-up BMP sometime next week to check his kidney function to make sure we are not dehydrating him and okay to continue it. Thanks [facility] CBC AUTO DIFFon 02-06-2023 BASO # 0.0 103/ul Normal 0.0-0.1 [facility] Comment on above: Performed By: #### C BC #### [facility] [address] [place] [address] Dr. John Bertrand Basophils/100 WBC (Bld) 0.4 % Normal 0.2-2.0 [facility] Comment on above: Performed By: #### C BC #### [facility] [address] [place] [address] Dr. John Bertrand EO # 0.2 103/ul Normal 0.0-0.7 [facility] Comment on above: Performed By: #### C BC #### [facility] [address] [place] [address] Dr. John Bertrand Eosinophils/100 WBC (Bld) 3.1 % Normal 0.9-7.0 [facility] Comment on above: Performed By: #### C BC #### [facility] [address] [place] [address] Dr. John Bertrand Erythrocyte distribution width (RBC) [Ratio] 13.9 % Normal 11.0-15.0 [facility] Comment on above: Performed By: #### C BC #### [facility] [address] [place] [address] Dr. John Bertrand Hematocrit (Bld) [Volume fraction] 43.8 % Normal 42.0-54.0 [facility] Comment on above: Performed By: #### C BC #### [facility] [address] [place] [address] Dr. John Bertrand Hemoglobin (Bld) [Mass/Vol] 14.4 g/dL Normal 14.0-18.0 [facility] Comment on above: Performed By: #### C BC #### [facility] [address] [place] [address] Dr. John Bertrand IG # 0.01 10e3/ul Normal 0.00-0.03 [facility] Comment on above: Performed By: #### C BC #### [facility] [address] [place] [address] Dr. John Bertrand IG % 0.2 % Normal 0.0-0.5 [facility] Comment on above: Performed By: #### C BC #### [facility] [address] [place] [address] Dr. John Bertrand LYMPH # 2.3 103/ul Normal 1.2-3.8 [facility] Comment on above: Performed By: #### C BC #### [facility] [address] [place] [address] Dr. John Bertrand Lymphocytes/100 WBC (Bld) 41.1 % Normal 20.5-60.0 [facility] Comment on above: Performed By: #### C BC #### [facility] [address] [place] [address] Dr. John Bertrand MANUAL DIFF REQ NO Normal [facility] Comment on above: Performed By: #### C BC #### [facility] [address] [place] [address] Dr. John Bertrand MCH (RBC) [Entitic mass] 27.6 pg Normal 25.9-34.0 [facility] Comment on above: Performed By: #### C BC #### [facility] [address] [place] [address] Dr. John Bertrand MCHC (RBC) [Mass/Vol] 32.9 g/dL Normal 29.9-35.2 [facility] Comment on above: Performed By: #### C BC #### [facility] [address] [place] [address] Dr. John Bertrand MCV (RBC) [Entitic vol] 83.9 fL Normal 80.0-94.0 [facility] Comment on above: Performed By: #### C BC #### [facility] [address] [place] [address] Dr. John Bertrand MONO # 0.5 103/ul Normal 0.3-0.8 [facility] Comment on above: Performed By: #### C BC #### [facility] [address] [place] [address] Dr. John Bertrand Monocytes/100 WBC (Bld) 9.0 % Normal 1.7-12.0 [facility] Comment on above: Performed By: #### C BC #### [facility] [address] [place] [address] Dr. John Bertrand NEUT # 2.5 103/ul Normal 1.4-6.5 [facility] Comment on above: Performed By: #### C BC #### [facility] [address] [place] [address] Dr. John Bertrand Neutrophils/100 WBC (Bld) 46.2 % Normal 43.0-75.0 [facility] Comment on above: Performed By: #### C BC #### [facility] [address] [place] [address] Dr. John Bertrand Platelet mean volume (Bld) [Entitic vol] 9.6 fL Normal 9.5-13.5 [facility] Comment on above: Performed By: #### C BC #### [facility] [address] [place] [address] Dr. John Bertrand PLT 223 103/ul Normal 150-450 [facility] Comment on above: Performed By: #### C BC #### [facility] [address] [address] [address] John Bertrand RBC 5.22 106/ul Normal 4.70-6.10 [facility] Comment on above: Performed By: #### C BC #### [facility] [address] [place] [address] Dr. John Bertrand WBC 5.5 103/ul Normal 4.0-11.0 [facility] Comment on above: Performed By: #### C BC #### [facility] [address] [place] [address] Dr. John Bertrand PROF CHEM 8 (BAS METB)on Anion gap [Moles/Vol] 9.3 mmol/L Normal [facility] Comment on above: Performed By: #### B MP #### [facility] [address] [place] [address] Dr. John Bertrand Calcium [Mass/Vol] 8.7 mg/dL Normal 8.5-10.1 [facility] Comment on above: Performed By: #### B MP #### [facility] [address] [place] [address] Dr. John Bertrand Chloride [Moles/Vol] 105 mmol/L Normal 98-107 [facility] Comment on above: Performed By: #### B MP #### [facility] [address] [place] [address] Dr. John Bertrand CO2 [Moles/Vol] 27.6 mmol/L Normal 21.0-32.0 [facility] Comment on above: Performed By: #### B MP #### [facility] [address] [place] [address] Dr. John Bertrand Creatinine [Mass/Vol] 1.28 mg/dL Normal 0.70-1.30 [facility] Comment on above: Performed By: #### B MP #### [facility] [address] [address] [address] John Bertrand EGFR-AF NAURUAN >60 Normal >=60 [facility] Comment on above: Performed By: #### B MP #### [facility] [address] [address] [address] John Bertrand EGFR-NON AF NAURUAN 58 mL/min/1.73m2 Critically low >=60 [facility] Comment on above: Performed By: #### B MP #### [facility] [address] [address] [address] John Bertrand Glucose [Mass/Vol] 137 mg/dL Critically high 74-106 T [facility] [place] Comment on above: Performed By: #### B MP #### [facility] [address] [place] [address] Dr. John Bertrand Potassium [Moles/Vol] 3.9 mmol/L Normal 3.5-5.1 [facility] Comment on above: Performed By: #### B MP #### [facility] [address] [address] [address] John Bertrand Sodium [Moles/Vol] 138 mmol/L Normal 136-145 [facility] Comment on above: Performed By: #### B MP #### [facility] [address] [address] [address] John Bertrand Urea nitrogen [Mass/Vol] 16.0 mg/dL Normal 7.0-18.0 [facility] Comment on above: Performed By: #### B MP #### [facility] [address] [address] [address] John Bertrand Urea nitrogen/Creatinine [Mass ratio] 12.5 mg/mg Normal [facility] Comment on above: Performed By: #### B MP #### [facility] [address] [place] [address] Dr. John Bertrand CBC AUTO DIFFon 01-14-2023 BASO # 0.0 103/ul Normal 0.0-0.1 [facility] Comment on above: Performed By: #### C BC #### [facility] [address] [place] [address] Dr. John Bertrand Basophils/100 WBC (Bld) 0.6 % Normal 0.2-2.0 [facility] Comment on above: Performed By: #### C BC #### [facility] [address] [place] [address] Dr. John Bertrand EO # 0.1 103/ul Normal 0.0-0.7 [facility] Comment on above: Performed By: #### C BC #### [facility] [address] [place] [address] Dr. John Bertrand Eosinophils/100 WBC (Bld) 2.7 % Normal 0.9-7.0 [facility] Comment on above: Performed By: #### C BC #### [facility] [address] [place] [address] Dr. John Bertrand Erythrocyte distribution width (RBC) [Ratio] 13.9 % Normal 11.0-15.0 [facility] Comment on above: Performed By: #### C BC #### [facility] [address] [place] [address] Dr. John Bertrand Hematocrit (Bld) [Volume fraction] 44.8 % Normal 42.0-54.0 [facility] Comment on above: Performed By: #### C BC #### [facility] [address] [place] [address] Dr. John Bertrand Hemoglobin (Bld) [Mass/Vol] 14.8 g/dL Normal 14.0-18.0 [facility] Comment on above: Performed By: #### C BC #### [facility] [address] [place] [address] Dr. John Bertrand IG # 0.01 10e3/ul Normal 0.00-0.03 [facility] Comment on above: Performed By: #### C BC #### [facility] [address] [place] [address] Dr. John Bertrand IG % 0.2 % Normal 0.0-0.5 [facility] Comment on above: Performed By: #### C BC #### [facility] [address] [place] [address] Dr. John Bertrand LYMPH # 1.9 103/ul Normal 1.2-3.8 [facility] Comment on above: Performed By: #### C BC #### [facility] [address] [place] [address] Dr. John Bertrand Lymphocytes/100 WBC (Bld) 37.0 % Normal 20.5-60.0 [facility] Comment on above: Performed By: #### C BC #### [facility] [address] [place] [address] Dr. John Bertrand MANUAL DIFF REQ NO Normal [facility] Comment on above: Performed By: #### C BC #### [facility] [address] [place] [address] Dr. John Bertrand MCH (RBC) [Entitic mass] 27.2 pg Normal 25.9-34.0 [facility] Comment on above: Performed By: #### C BC #### [facility] [address] [place] [address] Dr. John Bertrand MCHC (RBC) [Mass/Vol] 33.0 g/dL Normal 29.9-35.2 [facility] Comment on above: Performed By: #### C BC #### [facility] [address] [place] [address] Dr. John Bertrand MCV (RBC) [Entitic vol] 82.4 fL Normal 80.0-94.0 [facility] Comment on above: Performed By: #### C BC #### [facility] [address] [place] [address] Dr. John Bertrand MONO # 0.5 103/ul Normal 0.3-0.8 [facility] Comment on above: Performed By: #### C BC #### [facility] [address] [place] [address] Dr. John Bertrand Monocytes/100 WBC (Bld) 8.8 % Normal 1.7-12.0 [facility] Comment on above: Performed By: #### C BC #### [facility] [address] [id number] John Bertrand NEUT # 2.7 103/ul Normal 1.4-6.5 [facility] Comment on above: Performed By: #### C BC #### [facility] [address] [address] [address] John Bertrand Neutrophils/100 WBC (Bld) 50.7 % Normal 43.0-75.0 [facility] Comment on above: Performed By: #### C BC #### [facility] [address] [address] [address] John Bertrand Platelet mean volume (Bld) [Entitic vol] 9.5 fL Normal 9.5-13.5 [facility] Comment on above: Performed By: #### C BC #### [facility] [address] [address] [address] John Bertrand PLT 235 103/ul Normal 150-450 [facility] Comment on above: Performed By: #### C BC #### [facility] [address] [address] [address] John Bertrand RBC 5.44 106/ul Normal 4.70-6.10 [facility] Comment on above: Performed By: #### C BC #### [facility] [address] [address] [address] John Bertrand WBC 5.3 103/ul Normal 4.0-11.0 [facility] Comment on above: Performed By: #### C BC #### [facility] [address] [address] [address] John Bertrand FREE THYROXINE INDEX T7on FTI 2.16 Normal 1.30-4.50 [facility] Comment on above: Performed By: #### T SH, CMP, T7, LIPID ####[facility] [address] [address]Dr. John Bertrand T3U 36.0 % Normal 33.0-40.0 [facility] Comment on above: Performed By: #### T SH, CMP, T7, LIPID ####[facility] [address] [place], [place] [address]SiDr. John Bertrand T4 [Mass/Vol] 6.00 ug/dL Normal 4.50-12.10 [facility] Comment on above: Performed By: #### T SH, CMP, T7, LIPID ####[facility] [address] [place], [place] [address]WsAgnes Bertrand GLYCOHEMOGLOBIN A1Con 2022 ADA RECOMMENDATION SEE BELOW Normal [facility] Comment on above: Result Comment: ADA RECOMMENDED LIMIT 4.0 - 6.0 ADA THERAPEUTIC TARGET < 7.0 ACTION SUGGESTED > 7.0 Performed By: #### A 1C #### [facility] [address] [address] [address] John Bertrand Glucose [Mass/Vol] 154 mg/dL Normal [facility] Comment on above: Performed By: #### A 1C #### [facility] [address] [address] [address] John Bertrand HbA1c (Bld) [Mass fraction] 7.0 % Critically high 4.5-6.2 [facility] Comment on above: Performed By: #### A 1C #### [facility] [address] [address] [address] John Bertrand LIPID PROFILEon 01-14-2023 CHOL-HDL RATIO NORM SEE BELOW Normal [facility] Comment on above: Result Comment: 3.3 - 4.4 LOW RISK 4.4 - 7.1 AVERAGE RISK 7.1 - 11.0 MODERATE RISK >11.0 HIGH RISK Performed By: #### T SH, CMP, T7, LIPID ####[facility] [address] [place], [place] [address]NbAgnes Bertrand Cholesterol [Mass/Vol] 151 mg/dL Normal <=200 [facility] Comment on above: Performed By: #### T SH, CMP, T7, LIPID ####[facility] [address] [id number] Bertrand Cholesterol in HDL [Mass/Vol] 36 mg/dL Critically low 40-60 [facility] Comment on above: Performed By: #### T SH, CMP, T7, LIPID ####[facility] [address] [address]Dr. John Bertrand Cholesterol in LDL [Mass/Vol] 101.4 mg/dL Normal [facility] Comment on above: Performed By: #### T SH, CMP, T7, LIPID ####[facility] [address] [id number]. John Bertrand Cholesterol.total/Ch olesterol in HDL [Mass ratio] 4.2 {ratio} Normal [facility] Comment on above: Performed By: #### T SH, CMP, T7, LIPID ####[facility] [address] [id number]. John Bertrand HDL NORMAL > or = 60 mg/dl - LO W CARDIOVASCULAR RISK <40 mg/dl - HIGH CARDIOVASCULAR RISK Normal [facility] Comment on above: Performed By: #### T SH, CMP, T7, LIPID ####[facility] [address] [id number]. John Bertrand LDL CALC NORMAL SEE BELOW Normal [facility] Comment on above: Result Comment: <100 mg/dl OPTIMAL 100 - 129 mg/dl NEAR OR ABOVE OPTIMAL 130 - 159 mg/dl BORDERLINE HIGH 160 - 189 mg/dl HIGH >190 mg/dl VERY HIGH Performed By: #### T SH, CMP, T7, LIPID ####[facility] [address] [address]Dr. John Bertrand Triglyceride [Mass/Vol] 68 mg/dL Normal <=150 [facility] Comment on above: Performed By: #### T SH, CMP, T7, LIPID ####[facility] [address] [address]Dr. John Bertrand VLDL CALC 13.6 mg/dL Normal [facility] Comment on above: Performed By: #### T SH, CMP, T7, LIPID ####[facility] [address] [address]Dr. John Bertrand PROF 14(COMP METB)on 023 Albumin [Mass/Vol] 3.8 g/dL Normal 3.4-5.0 [facility] Comment on above: Performed By: #### T SH, CMP, T7, LIPID ####[facility] [address] [address]Dr. John Bertrand Albumin/Globulin [Mass ratio] 1.1 {ratio} Normal [facility] Comment on above: Performed By: #### T SH, CMP, T7, LIPID ####[facility] [address] [address]Dr. John Bertrand ALP [Catalytic activity/Vol] 71 U/L Normal 46-116 [facility] Comment on above: Performed By: #### T SH, CMP, T7, LIPID ####[facility] [address] [address]Dr. Nataliebrenda Bertrand ALT [Catalytic activity/Vol] 80 U/L Critically high 16-63 [facility] Comment on above: Performed By: #### T SH, CMP, T7, LIPID ####[facility] [address] [address]Dr. John Bertrand Anion gap [Moles/Vol] 11.2 mmol/L Normal [facility] Comment on above: Performed By: #### T SH, CMP, T7, LIPID ####[facility] [address] [place], [place] [address]Dr. Nataliebrenda Bertrand AST [Catalytic activity/Vol] 39 U/L Critically high 15-37 [facility] Comment on above: Performed By: #### T SH, CMP, T7, LIPID ####[facility] [address] [place], [place] [address]Dr. Nataliebrenda Bertrand Bilirubin [Mass/Vol] 0.4 mg/dL Normal 0.2-1.0 [facility] Comment on above: Performed By: #### T SH, CMP, T7, LIPID ####[facility] [address] [place], [place] [address]Dr. Nataliebrenda Bertrand Calcium [Mass/Vol] 9.2 mg/dL Normal 8.5-10.1 [facility] Comment on above: Performed By: #### T SH, CMP, T7, LIPID ####[facility] [address] [place], [place] [id number]. John Bertrand Chloride [Moles/Vol] 107 mmol/L Normal 98-107 [facility] Comment on above: Performed By: #### T SH, CMP, T7, LIPID ####[facility] [address] [address]Dr. John Bertrand CO2 [Moles/Vol] 26.8 mmol/L Normal 21.0-32.0 [facility] Comment on above: Performed By: #### T SH, CMP, T7, LIPID ####[facility] [address] [address]Dr. John Bertrand Creatinine [Mass/Vol] 1.21 mg/dL Normal 0.70-1.30 [facility] Comment on above: Performed By: #### T SH, CMP, T7, LIPID ####[facility] [address] [address]Dr. John Bertrand EGFR-AF NAURUAN >60 Normal >=60 [facility] Comment on above: Performed By: #### T SH, CMP, T7, LIPID ####[facility] [address] [address]Dr. John Bertrand EGFR-NON AF NAURUAN >60 Normal >=60 [facility] Comment on above: Performed By: #### T SH, CMP, T7, LIPID ####[facility] [address] [address]Dr. John Bertrand Globulin (S) [Mass/Vol] 3.5 g/dL Normal [facility] Comment on above: Performed By: #### T SH, CMP, T7, LIPID ####[facility] [address] [address]Dr. John Bertrand Glucose [Mass/Vol] 140 mg/dL Critically high 74-106 [facility] Comment on above: Performed By: #### T SH, CMP, T7, LIPID ####[facility] [address] [address]Dr. John Bertrand Potassium [Moles/Vol] 4.0 mmol/L Normal 3.5-5.1 [facility] Comment on above: Performed By: #### T SH, CMP, T7, LIPID ####[facility] [address] [address]Dr. John Bertrand Protein [Mass/Vol] 7.3 g/dL Normal 6.4-8.2 [facility] Comment on above: Performed By: #### T SH, CMP, T7, LIPID ####[facility] [address] [address]Dr. John Bertrand Sodium [Moles/Vol] 141 mmol/L Normal 136-145 [facility] Comment on above: Performed By: #### T SH, CMP, T7, LIPID ####[facility] [id number] [place] [address]Dr. John Bertrand Urea nitrogen [Mass/Vol] 11.0 mg/dL Normal 7.0-18.0 [facility] Comment on above: Performed By: #### T SH, CMP, T7, LIPID ####[facility] [id number] [place] [address]Dr. John Bertrand Urea nitrogen/Creatinine [Mass ratio] 9.1 mg/mg Normal [facility] Comment on above: Performed By: #### T SH, CMP, T7, LIPID ####[facility] [id number] [place] [address]Dr. John Bertrand TSHon 01-14-2023 TSH 1.532 uIU/mL Normal 0.358-3.740 [facility] Comment on above: Performed By: #### T SH, CMP, T7, LIPID ####[facility] [id number] [place] [address]Dr. John Bertrand Physician Referralon 023 Physician Referral [phone] [id number]:127 Normal [facility] CT ABD/PELV W CONon 12-17-19 23 [...] by: GLORIA STRANGE Date: 2022-12-16 09:20 Normal [facility] ECHOCARDIO M/2D COMPLETEon 0 12-16-2022 ECHOCARDIO M/2D COMPLETE Patient: FLYNN ARNETT Exam Date: 12/16/2022 : 1965 Gender:M Ordering : DR LAUREN VELASQUEZ . Admission #: [id number] Family : Order #: [id number] CLICK HERE TO VIEW EXAM ECHOCARDIOGRAM REPORT [...] M.D. on 12/16/2022 at 12:11 Normal [facility]on SARS-CoV-2 (COVID-19) RNA THALIA+probe Ql (Unsp spec) Not detected Normal NOT DETECTED [facility] Comment on above: Result Comment: This test is not yet approved or cleared by the [place] FDA. When there are no FDA-approved or cleared tests available, and other criteria are met, FDA can make tests available under an emergency access mechanism called an Emergency Use Authorization (EUA). The EUA for this test is supported by the Sheet Fed Printer of Health and Human Service's (HHS's) declaration [...] SARS-CoV-2. Performed By: #### C VDTB #### [facility] [address] [place] [address] Dr. John Bertrand INFLUENZA A [facility] B [facility] Normal [facility] Comment on above: Result Comment: Nega tive for Flu A protein angiten. Infection due to Flu A cannot be ruled out. Flu A angiten in the sample may be below the detection limit of the test. Performed By: #### I NFLUAB #### [facility] [address] [place] [address] Dr. John Bertrand [facility] SEE BELOW Normal [facility] Comment on above: Result Comment: Nega tive for Flu B protein antigen. Infection due to Flu B cannot be ruled out. Flu B antigen in the sample may be below the detection limit of the test. Performed By: #### I NFLUAB #### [facility] [address] [place] [address] Dr. John Bertrand INFLUENZA A AG Negative Normal NEGATIVE SEE COMMENT [facility] Comment on above: Performed By: #### I NFLUAB #### [facility] [address] [place] [address] Dr. John Bertrand INFLUENZA B AG Negative Normal NEGATIVE SEE COMMENT [facility] Comment on above: Performed By: #### I NFLUAB #### [facility] [address] [place] [address] Dr. John Bertrand INTERNAL CONTROLS Within Normal Limits Normal Wi thin Normal Limits [facility] Comment on above: Performed By: #### I NFLUAB #### [facility] [address] [place] [address] Dr. John Bertrand SYMPTOMATIC COVID-19 ANTIGEN on 03-06-2022 EUA Statement SEE BELOW Normal [facility] Comment on above: Result [...] sooner. Performed By: #### C VDAGS #### [facility] [address] [place] [address] Dr. John Bertrand SARS-CoV-2 (COVID-19) RNA THALIA+probe Ql (Unsp spec) Negative Normal NEGATIVE [facility] Comment on above: Performed By: #### C VDAGS #### [facility] [address] [place], [place] [id number] Dr. John Bertrand Vital Signs Date Time Vital Sign Value Performing Clinician Facility 05-10-2023 09:20-0400 Body height 175.26 cm Monica Jackson Other [facility] Other 05-10-2023 09:20-0400 Body mass index (BMI) [Ratio] 33.96 kg/m2 Monica Jackson Other [facility] Other 05-10-2023 09:20-0400 Body temperature 99 [degF] Monica Jackson Other [facility] Other 05-10-2023 09:20-0400 Body weight 104.33 kg Monica Jackson Other [facility] Other 05-10-2023 09:20-0400 Diastolic blood pressure 102 mm[Hg] Monica Jackson Other [facility] Other 05-10-2023 09:20-0400 Respiratory rate 18 /min Monica Jackson Other [facility] Other 05-10-2023 09:20-0400 SaO2% (BldA) [Mass fraction] 97 % Monica Jackson Other [facility] Other 05-10-2023 09:20-0400 Systolic blood pressure 141 mm[Hg] Monica Cardozamond Other [facility] Other 01-09-2023 15:29-0400 Blood Pressure Location Colt STUART [facility] 01-09-2023 15:29-0400 Diastolic blood pressure 98 mm[Hg] Colt STUART [facility] 01-09-2023 15:29-0400 Heart rate 80 /min Colt STUART [facility] [place] 01-09-2023 15:29-0400 Respiratory rate 16 /min Colt STUART [facility] [place] 01-09-2023 15:29-0400 Systolic blood pressure 146 mm[Hg] Colt STUART [facility] [place] Encounters Encounter Date Encounter Type Care Provider Facility Start: 10-27-2024 End: 10-27-2024 [facility] Start: 04-15-2024 End: 04-15-2024 ambulatory TANK PIERRE [facility] Start: 05-10-2023 End: 05-10-2023 ambulatory Monica Jackson Other [facility] Other Start: 05-10-2023 Office outpatient ne w 20 minutes Monica Jackson [facility] [place] Start: 02-12-2023 Encounter for other preprocedural examination DR ADONIS WEBSTER [facility] Start: 02-12-2023 Encounter for preprocedural laboratory examination DR ADONIS WEBSTER [facility] Start: 02-06-2023 End: 02-07-[address] LAUREN VELASQUEZ . Facility:[facility] Start: 02-06-2023 End: 02-07-2023 Encounter for preprocedural laboratory examination DR LAUREN VELASQUEZ . Facility:[facility] Start: 01-20-2023 Encounter for genera l adult medical examination without abnormal findings DR LAUREN VELASQUEZ . [facility] Start: 01-14-2023 End: 01-15-[address] LAUREN VELASQUEZ . Facility:[facility] Start: 01-14-2023 End: 01-15-2023 Encounter for general adult medical examination without abnormal findings DR LAUREN VELASQUEZ . Facility: Start: 01-09-2023 End: 01-10-2023 ambulatory Colt STUART Facility:[facility] Start: 01-09-2023 End: 01-09-2023 Patient encounter procedure Colt STUART [facility] Start: 12-16-2022 End: 12-17-[address] LAUREN VELASQUEZ . Facility: Start: 03-06-2022 End: 03-06-[address] LAUREN VELASQUEZ . Facility: Procedures Date Procedure Procedure Detail Performing Clinician Start: 01-14-2023 PSA screening MONICA SANTOS Comment on above: Performed By: #### P [facility] #### [facility] [address] [place] [address] Dr. John Bertrand Open reduction of fracture with internal fixation Colt MYERSL Comment on above: right arm Immunizations Immunization Date Immunization Notes Care Provider Ashley horvath NEGATED: Highlighted row has not occurred!01-09-2023 influenza virus vaccine, unspecified formulation Colt STUART [facility] [place] NEGATED: Highlighted row has not occurred!01-09-2023 SARS-CoV-2 mRNA (tozinameran 5y-11y) vaccine Colt MYERSL [facility] Payers Date Payer Category Payer Unknown [id number] 2.16.8 [id number] 1965 Unknown [id number] 2.16.84 [id number] 1965 Unknown [id number] 2.16.84 [id number] 1965 Unknown [id number] 2.16.84 [id number] 1965 Unknown [id number] 2.16.84 [id number] 1965 Unknown [id number] 2.16.84 [id number] 1957 Self-pay [id number] 1957 Unknown [id number] 1957 Unknown [id number] Social History Date Type Detail Facility Start: 01-09-2023 Tobacco smoking status Never s moked tobacco (finding) [facility] Tobacco smoking status Never Gener [facility] Sex Assigned At Male [facility] Functional Status Date Assessment Result Facility 01-09-2023 Functional Status N/A [facility] rgjasmin Alejandro Clinical Notes 12-18-2022 to 10-27-2024 Note Date & Type Note Facility 10-27-2024 Note [facility] FLAVIA CARDIOL OGY PROGRESS NOTE Patient here for 6 mo follow up HFpEF, mitral valve disorder, hypertension, and aortic root dilatation. C/o intermittent chest pain and SOB w/ exertion. Says he saw Dr. Velasquez's nurse practitioner recently and she told him he valve might be leaky again . No recent labs/imaging since last apt in April 2024. Review of Systems Cardiovascular: Positive for chest pain and dyspnea on exertion. Neurological: Positive for light-headedness. All other systems reviewed and are negative. HPI: Flynn Arnett is a 59 y.o. routine F/U HPI 58 yo male presents for routine for follow up HFpEF, hypertension, and mitral valve regurgitation. Patient here for 6 mo follow up HFpEF, aortic dilatation, AAA, and mitral valve regurgitation. Had echo last week and routine labs w/ lipid profile in January 2024. Says he stopped all medications about 1 month ago and feels good. Still taking simvastatin and aspirin. Denies chest pain, SOB, and palpitations. Lightheadedness has significantly improved since stopping medications. States that he was having a lot of dizziness especially with position changes and denied any syncope. Previous HPI- HPI PMHx: severe MR s/p surgical repair, HLD, HTN, HFpEF Telemedicine visit for 4 mo follow up HFpEF, hypertension, and mitral valve regurgitation. He was switched from Vidly to miDrive due to cost. Had echo last month, but has not completed lab work. C/o chest pain, HALE, and lightheadedness. He has started having chest pain about 1 month ago. Feels like an achiness. Located on the left side of his chest over his heart. Radiates to his shoulder. No triggers. Occurs at rest or with exertion. Lasts for hours to a full day. Occurs 2-3 days a week. He has felt like he hasn't noticed an improvement in how he's felt since his mitral valve surgery. He has noticed worsening HALE. He has a job that requires heavy lifting and he feels he has not been able to get back to his activity level since prior to surgery. He has not been monitoring his weight. He is limiting his salt intake. If he bends over or stands up he gets dizzy. UPDATE 10/27/2024 Did not like the way he felt on medications and therefore stopped Coreg Jardiance Neurontin and Glucophage Currently feels okay; he does not have significant shortness of breath. He denies significant chest pain. He has no orthopnea or paroxysmal tunnel dyspnea. He has no lower extremity edema. He did have a cold/upper respiratory infection and when his primary care provider listened to his heart, apparently his murmur was more pronounced Visit Vitals Smoking Status Never No Known Allergies Medications: Current Outpatient Medications on File Prior to Visit Medication Sig Dispense Refill aspirin 81 mg EC tablet Take 81 mg by mouth in the morning. baclofen (Lioresal) 20 mg tablet Take by mouth in the morning, at noon, and at bedtime. carvedilol (Coreg) 3.125 mg tablet Take 1 tablet (3.125 mg) by mouth with breakfast and with evening meal. (Patient not taking: Reported on 04/15/2024) 180 tablet 3 empagliflozin (Jardiance) 10 mg Take 1 tablet (10 mg) by mouth in the morning. (Patient not taking: Reported on 04/15/2024) 90 tablet 3 ezetimibe (Zetia) 10 mg tablet Take 1 tablet (10 mg) by mouth in the morning. 30 tablet 0 gabapentin (Neurontin) 100 mg capsule Take 2 capsules (200 mg) by mouth in the morning and at bedtime. (Patient not taking: Reported on 06/30/2023) 120 capsule 0 metFORMIN (Glucophage) 500 mg tablet Take 1 tablet (500 mg) by mouth with breakfast. Do not start before June 06, 2023. (Patient not taking: Reported on 06/30/2023) 30 tablet 0 pantoprazole (ProtoNix) 40 mg EC tablet Take 40 mg by mouth before breakfast. simvastatin (Zocor) 20 mg tablet Take 20 mg by mouth in the morning. tiZANidine (Zanaflex) 4 mg tablet TAKE 2 TABLETS BY MOUTH EVERY EVENING NEEDED No current facility-administered medications on file prior to visit. Physical Exam: Constitutional: Appearance: Normal appearance. Without apparent distress HENT: Head: Normocephalic and atraumatic. Nose: Nose normal. Mouth/Throat: Mouth: Mucous membranes are moist. Eyes: Extraocular Movements: Extraocular movements intact. Conjunctiva/sclera: Conjunctivae normal. Neck: Vascular: No JVD. Cardiovascular: Rate and Rhythm: Normal rate and regular rhythm. Pulses: Dorsalis pedis pulses are 3 on the right side and 3on the left side. Heart sounds: Normal heart sounds, S1 normal and S2 normal. Pulmonary: Effort: Pulmonary effort is normal. Breath sounds: Normal breath sounds. Abdominal: General: Bowel sounds are normal. Palpations: Abdomen is soft. Musculoskeletal: General: Normal range of motion. Cervical back: Normal range of motion. Right lower leg: No edema. Left lower leg: No edema. Skin: General: Skin is warm and dry. Capillary Refill: Capillary refill takes less th (more content not included)... [facility] 04-15-2024 Note Aortic dilitation re yulia stable Will repeat Echocardiogram in 1 year D/w pt importance of statin and HTN management and he voiced understanding [facility] 04-15-2024 Note Hypertension is curr ently controlled- he has stopped taking coreg, lasix and jardiance- He does monitor b/p at home and typically b/p remains < 130/80 [facility] 04-15-2024 Note stable [facility] 04-15-2024 Note S/P MV repair- ring Ring with normal doppler flows on TTE No concerning symptoms currently [facility] 04-15-2024 Note [facility] I currently euv olemic without exacerbation HE has stopped jardiance and lasix r/t lightheadedness/dizzyness and symptoms have resolved. He has lost weight since his last visit and overall doing well. Monitor daily weights, I&O, fluid restriction 1.5-2L/day, renal function and electrolytes- [facility] 04-15-2024 Note [facility] CARDIOLOGY PROGR ESS NOTE HPI: Flynn Arnett is a 58 y.o. routine F/U HPI 58 yo male presents for routine for follow up HFpEF, hypertension, and mitral valve regurgitation. Patient here for 6 mo follow up HFpEF, aortic dilatation, AAA, and mitral valve regurgitation. Had echo last week and routine labs w/ lipid profile in January 2024. Says he stopped all medications about 1 month ago and feels good. Still taking simvastatin and aspirin. Denies chest pain, SOB, and palpitations. Lightheadedness has significantly improved since stopping medications. States that he was having a lot of dizziness especially with position changes and denied any syncope. Review of Systems Neurological: Positive for light-headedness (improving). All other systems reviewed and are negative Previous HPI- HPI PMHx: severe MR s/p surgical repair, HLD, HTN, HFpEF Telemedicine visit for 4 mo follow up HFpEF, hypertension, and mitral valve regurgitation. He was switched from Farxiga to miDrive due to cost. Had echo last month, but has not completed lab work. C/o chest pain, HALE, and lightheadedness. He has started having chest pain about 1 month ago. Feels like an achiness. Located on the left side of his chest over his heart. Radiates to his shoulder. No triggers. Occurs at rest or with exertion. Lasts for hours to a full day. Occurs 2-3 days a week. He has felt like he hasn't noticed an improvement in how he's felt since his mitral valve surgery. He has noticed worsening HALE. He has a job that requires heavy lifting and he feels he has not been able to get back to his activity level since prior to surgery. He has not been monitoring his weight. He is limiting his salt intake. If he bends over or stands up he gets dizzy. Visit Vitals BP 114/67 (BP Location: Right arm, Patient Position: Sitting) Pulse 60 Ht 1.753 m (5' 9 ) Wt 100 kg (221 lb) SpO2 95% BMI 32.64 kg/m??? Smoking Status Never BSA 2.21 m??? No Known Allergies Medications: Current Outpatient Medications on File Prior to Visit Medication Sig Dispense Refill aspirin 81 mg EC tablet Take 81 mg by mouth in the morning. pantoprazole (ProtoNix) 40 mg EC tablet Take 40 mg by mouth before breakfast. simvastatin (Zocor) 20 mg tablet Take 20 mg by mouth in the morning. baclofen (Lioresal) 20 mg tablet Take by mouth in the morning, at noon, and at bedtime. carvedilol (Coreg) 3.125 mg tablet Take 1 tablet (3.125 mg) by mouth with breakfast and with evening meal. (Patient not taking: Reported on 04/15/2024) 180 tablet 3 empagliflozin (Jardiance) 10 mg Take 1 tablet (10 mg) by mouth in the morning. (Patient not taking: Reported on 04/15/2024) 90 tablet 3 ezetimibe (Zetia) 10 mg tablet Take 1 tablet (10 mg) by mouth in the morning. 30 tablet 0 gabapentin (Neurontin) 100 mg capsule Take 2 capsules (200 mg) by mouth in the morning and at bedtime. (Patient not taking: Reported on 06/30/2023) 120 capsule 0 metFORMIN (Glucophage) 500 mg tablet Take 1 tablet (500 mg) by mouth with breakfast. Do not start before June 06, 2023. (Patient not taking: Reported on 06/30/2023) 30 tablet 0 tiZANidine (Zanaflex) 4 mg tablet TAKE 2 TABLETS BY MOUTH EVERY EVENING NEEDED [DISCONTINUED] furosemide (Lasix) 20 mg tablet Take 1 tablet (20 mg) by mouth in the morning. Take an additional tablet as needed. (Patient not taking: Reported on 04/15/2024) 180 tablet 3 No current facility-administered medications on file prior to visit. Physical Exam: Constitutional: Appearance: Normal appearance. Without apparent distress HENT: Head: Normocephalic and atraumatic. Nose: Nose normal. Mouth/Throat: Mouth: Mucous membranes are moist. Eyes: Extraocular Movements: Extraocular movements intact. Conjunctiva/sclera: Conjunctivae normal. Neck: Vascular: No JVD. Cardiovascular: Rate and Rhythm: Normal rate and regular rhythm. Pulses: Dorsalis pedis pulses are 3 on the right side and 3on the left side. Heart sounds: Normal heart sounds, S1 normal and S2 normal. Pulmonary: Effort: Pulmonary effort is normal. Breath sounds: Normal breath sounds. Abdominal: General: Bowel sounds are normal. Palpations: Abdomen is soft. Musculoskeletal: General: Normal range of motion. Cervical back: Normal range of motion. Right lower leg: No edema. Left lower leg: No edema. Skin: General: Skin is warm and dry. Capillary Refill: Capillary refill takes less than 2 seconds. Neurological: General: No focal deficit present. Mental Status: he is alert and oriented to person, place, and time. Psychiatric: Mood and Affect: Mood normal. Behavior: Behavior normal. Thought Content: Thought content normal. Judgment: Judgment normal. Labs: 01/16/24 CBC normal NA 141, K+ 4.1= normal BUN 12, CR 1.13 GFR > 60- normal renal function A1C 6.7 Liver function normal Pro BNP 260 normal Chol 130, Trig 68, LDL 76.4, HDL 40- he stopped ze (more content not included)... [facility] 04-15-2024 Note Patient here for 6 m o follow up HFpEF, aortic dilatation, AAA, and mitral valve regurgitation. Had echo last week and routine labs w/ lipid profile in January 2024. Says he stopped all medications about 1 month ago and feels good. Still taking simvastatin and aspirin. Denies chest pain, SOB, and palpitations. Lightheadedness has significantly improved since stopping medications. Review of Systems Neurological: Positive for light-headedness (improving). All other systems reviewed and are negative. [facility] 05-10-2023 Evaluation note Encounter Date Diagnosis [...] tomorrow. You may also follow-up with an staple shear operator if no improvement. Go to the ER for worsening symptoms or concerns May, Left ear impacted cerumen (ICD-10 - H61.22) Cerumen impaction home care material was printed May, Right ear impacted cerumen (ICD-10 - H61.21) [facility] Other 04-07-2023 NoteChief Complaint consultation for umbilical hernia HPI [...] YADI PEPE, BETI Lees Only if needed [employer] ([employer] [place] [address]- Additional Instructions: Problem List/Past Medical [...] Tobacco - Denies T (more content not included)...[facility] Comment on above:Result Comment: Electronically Signed By: YADI PEPE, Colt Dudley\.br\Date and Time Signed: 01/09/23 15:56 [id number] Hospital Discharge instructions Follow Up Care 12/18/2022 13:20:00 With:YADI PEPE, BETI Lees Address: [address] [place] [phone]- When: only if needed [facility] Evaluation + Plan note No data available for this section [facility] [place] History general Narrative - Reported* Type Description Date Medical History GERD Medical History HYPERLIPIDEMIA Hospitalization History KNEE CELLULITIS [facility] Other Progress note No data available for this section [facility] [place] Summary Purpose Family History No Family History Records FoundNo Family History Records FoundNo Family History Records Found Advance Directives No Advanced Directives Records FoundNo Advanced Directives Records FoundNo Advanced Directives Records Found Additional Source Comments Patient Care team informatio n (unrecognized section and content) Personnel Name: Lauren Velasquez MD Address: Address: [address] [place], [place] [address] [address]- (unrecognized sect ion and content) No Status Records FoundNo Status Records FoundNo Status Records Found INFORMATION SOURCE (unrecogn ized section and content) DATE CREATED AUTHOR 01/11/2023 [facility] DATE CREATED AUTHOR AUTHOR'S ORGANIZ ATION 02/13/2023 [facility] DATE CREATED AUTHOR AUTHOR'S ORGANIZ ATION 10/29/2024 [facility] REASON FOR VISIT (unrecogniz ed section [...] BE BASED ON THE PRIMARY CLINICAL RECORDS. [facility] provides no warranty or guarantee of the accuracy or completeness of information in this document.
[2024-11-19 08:18] LABS: Alanine Aminotransferase 36 U/L (16-63); Albumin Globulin Ratio 1.2; Albumin Level 3.7 g/dL (3.4-5.0); Alkaline Phosphatase 63 U/L (46-116); Anion Gap 11.1; Aspartate Amino Transferase 18 U/L (15-37); BUN Creatinine Ratio 12.8; Bilirubin Total 0.5 mg/dL (0.2-1.0); Calcium 8.7 mg/dL (8.5-10.1); Carbon Dioxide 27.1 mmol/L (21.0-32.0); Chloride 107 mmol/L (98-107); Chol HDL Ratio 5.5; Cholesterol 194 mg/dL (<=200); Estimated GFR (African America >60 (>=60 mL/min/1.73m^2); Estimated GFR (Non-African Ame 55 (>=60 mL/min/1.73m^2); Glucose 112 mg/dL (74-106); HDL Cholesterol 35 mg/dL (40-60); Potassium 4.2 mmol/L (3.5-5.1); Sodium 141 mmol/L (136-145); Total Protein 6.7 g/dL (6.4-8.2); Triglycerides 72 mg/dL (<=150); VLDL CHOLESTEROL 14.4 mg/dL
== END 2024-11-19 07:13 | disposition home or self-care (01) ==
LOC: LAB 07:13
PROVIDERS: PCP Family Medicine; Visit Provider Internal Medicine Interventional Cardiology
DX: E78.5 Hyperlipidemia, unspecified (principal); I34.0 Nonrheumatic mitral (valve) insufficiency
CPT/HCPCS: 36415; 80053; 80061

== ENCOUNTER 2024-11-22 07:01 | Outpatient (OUT) | payer BC, SELFPAY ==
--- OUTSIDE RECORDS SUMMARY | 2024-11-22 07:03 | XMS_ITS | CCD ---
Author Organization [facility] Care Team Providers Care Framing Mechanic Name Role Phone Lauren Velasquez Primary Care [...] [place]TAHAWY, DR SANCHEZ Admitting Unavailable ELTAHAWY, DR SNACHEZ Attending Unavailable ELTANILSON, DR SANCHEZ Consulting Unavailable [...] [facility] Facility Office Visiton 10-27-2024 Follow-up visit [id number] Flynn Arnett 1965 M Date Provider Department Center 10/27/2024 Jarrod-ADONIS WEBSTER MIKEY Alejandro Hos Family History Problem Relation Age of Onset No Known Problems Mother No Known Problems Father Family Status - Relation Status Age at Mother Father Level of Service:46691 [place] OFFICE/OUTPATIENT ESTABLISHED MOD MDM 30 MIN [facility] Office Visiton 04-15-2024 Follow-up visit [id number] Flynn Arnett 1965 M Date Provider Department Center 04/15/2024 TANK BECKHAM CARD Flavia Hos Family History Problem Relation Age of Onset No Known Problems Mother No Known Problems Father Family Status - Relation Status Age at Mother Father Level of Service:76689 [place] OFFICE/OUTPATIENT ESTABLISHED MOD MDM 30 MIN [facility] 36on 11-20-2023 36 Reviewed his labs. His kidney function slightly bumped so he's probably on the dryer side. We can have him go back to 20mg daily and he can take an extra tablet for a few days when he feels more short of breath. Repeat BMP in 2-4 weeks. Thanks! [facility] 36on 11-05-2023 36 If he is feeling better on the increased dose of lasix would like for him to get a follow-up BMP sometime next week to check his kidney function to make sure we are not dehydrating him and okay to continue it. Thanks [facility] CBC AUTO DIFFon 02-06-2023 BASO # 0.0 103/ul Normal 0.0-0.1 [facility] Comment on above: Performed By: #### C BC #### [facility] [address] [place] [address] Dr. John Bertrand Basophils/100 WBC (Bld) 0.4 % Normal 0.2-2.0 [facility] Comment on above: Performed By: #### C BC #### [facility] [address] [place] [address] Dr. John Bertrand EO # 0.2 103/ul Normal 0.0-0.7 [facility] Comment on above: Performed By: #### C BC #### [facility] [address] [place] [address] Dr. John Bertrand Eosinophils/100 WBC (Bld) 3.1 % Normal 0.9-7.0 [facility] Comment on above: Performed By: #### C BC #### [facility] [address] [place] [address] Dr. John Bertrand Erythrocyte distribution width (RBC) [Ratio] 13.9 % Normal 11.0-15.0 [facility] Comment on above: Performed By: #### C BC #### [facility] [address] [place] [address] Dr. John Bertrand Hematocrit (Bld) [Volume fraction] 43.8 % Normal 42.0-54.0 [facility] Comment on above: Performed By: #### C BC #### [facility] [address] [place] [address] Dr. John Bertrand Hemoglobin (Bld) [Mass/Vol] 14.4 g/dL Normal 14.0-18.0 [facility] Comment on above: Performed By: #### C BC #### [facility] [address] [place] [address] Dr. John Bertrand IG # 0.01 10e3/ul Normal 0.00-0.03 [facility] Comment on above: Performed By: #### C BC #### [facility] [address] [place] [address] Dr. John Bertrand IG % 0.2 % Normal 0.0-0.5 [facility] Comment on above: Performed By: #### C BC #### [facility] [address] [place] [address] Dr. John Bertrand LYMPH # 2.3 103/ul Normal 1.2-3.8 [facility] Comment on above: Performed By: #### C BC #### [facility] [address] [place] [address] Dr. John Bertrand Lymphocytes/100 WBC (Bld) 41.1 % Normal 20.5-60.0 [facility] Comment on above: Performed By: #### C BC #### [facility] [address] [place] [address] Dr. John Bertrand MANUAL DIFF REQ NO Normal [facility] Comment on above: Performed By: #### C BC #### [facility] [address] [place] [address] Dr. John Bertrand MCH (RBC) [Entitic mass] 27.6 pg Normal 25.9-34.0 [facility] Comment on above: Performed By: #### C BC #### [facility] [address] [place] [address] Dr. John Bertrand MCHC (RBC) [Mass/Vol] 32.9 g/dL Normal 29.9-35.2 [facility] Comment on above: Performed By: #### C BC #### [facility] [address] [place] [address] Dr. John Bertrand MCV (RBC) [Entitic vol] 83.9 fL Normal 80.0-94.0 [facility] Comment on above: Performed By: #### C BC #### [facility] [address] [place] [address] Dr. John Bertrand MONO # 0.5 103/ul Normal 0.3-0.8 [facility] Comment on above: Performed By: #### C BC #### [facility] [address] [place] [address] Dr. John Bertrand Monocytes/100 WBC (Bld) 9.0 % Normal 1.7-12.0 [facility] Comment on above: Performed By: #### C BC #### [facility] [address] [place] [address] Dr. John Bertrand NEUT # 2.5 103/ul Normal 1.4-6.5 [facility] Comment on above: Performed By: #### C BC #### [facility] [address] [place] [address] Dr. John Bertrand Neutrophils/100 WBC (Bld) 46.2 % Normal 43.0-75.0 [facility] Comment on above: Performed By: #### C BC #### [facility] [address] [place] [address] Dr. John Bertrand Platelet mean volume (Bld) [Entitic vol] 9.6 fL Normal 9.5-13.5 [facility] Comment on above: Performed By: #### C BC #### [facility] [address] [place] [address] Dr. John Bertrand PLT 223 103/ul Normal 150-450 [facility] Comment on above: Performed By: #### C BC #### [facility] [address] [address] [address] John Bertrand RBC 5.22 106/ul Normal 4.70-6.10 [facility] Comment on above: Performed By: #### C BC #### [facility] [address] [place] [address] Dr. John Bertrand WBC 5.5 103/ul Normal 4.0-11.0 [facility] Comment on above: Performed By: #### C BC #### [facility] [address] [place] [address] Dr. John Bertrand PROF CHEM 8 (BAS METB)on Anion gap [Moles/Vol] 9.3 mmol/L Normal [facility] Comment on above: Performed By: #### B MP #### [facility] [address] [place] [address] Dr. John Bertrand Calcium [Mass/Vol] 8.7 mg/dL Normal 8.5-10.1 [facility] Comment on above: Performed By: #### B MP #### [facility] [address] [place] [address] Dr. John Bertrand Chloride [Moles/Vol] 105 mmol/L Normal 98-107 [facility] Comment on above: Performed By: #### B MP #### [facility] [address] [place] [address] Dr. John Bertrand CO2 [Moles/Vol] 27.6 mmol/L Normal 21.0-32.0 [facility] Comment on above: Performed By: #### B MP #### [facility] [address] [place] [address] Dr. John Bertrand Creatinine [Mass/Vol] 1.28 mg/dL Normal 0.70-1.30 [facility] Comment on above: Performed By: #### B MP #### [facility] [address] [address] [address] John Bertrand EGFR-AF BOTSWANAN >60 Normal >=60 [facility] Comment on above: Performed By: #### B MP #### [facility] [address] [address] [address] John Bertrand EGFR-NON AF BOTSWANAN 58 mL/min/1.73m2 Critically low >=60 [facility] Comment on above: Performed By: #### B MP #### [facility] [address] [address] [address] John Bertrand Glucose [Mass/Vol] 137 mg/dL Critically high 74-106 [facility] Comment on above: Performed By: #### B MP #### [facility] [address] [place] [address] Dr. John Bertrand Potassium [Moles/Vol] 3.9 mmol/L Normal 3.5-5.1 [facility] Comment on above: Performed By: #### B MP #### [facility] [address] [address] [address] John Bertrand Sodium [Moles/Vol] 138 mmol/L Normal 136-145 [facility] Comment on above: Performed By: #### B MP #### [facility] [address] [address] [address] John Bertrand Urea nitrogen [Mass/Vol] 16.0 mg/dL Normal 7.0-18.0 [facility] Comment on above: Performed By: #### B MP #### [facility] [address] [address] [address] John Bertrand Urea nitrogen/Creatinine [Mass ratio] 12.5 mg/mg Normal [facility] Comment on above: Performed By: #### B MP #### [facility] [address] [place] [address] Dr. John Bertrand CBC AUTO DIFFon 01-14-2023 BASO # 0.0 103/ul Normal 0.0-0.1 [facility] Comment on above: Performed By: #### C BC #### [facility] [address] [place] [address] Dr. John Bertrand Basophils/100 WBC (Bld) 0.6 % Normal 0.2-2.0 [facility] Comment on above: Performed By: #### C BC #### [facility] [address] [place] [address] Dr. John Bertrand EO # 0.1 103/ul Normal 0.0-0.7 [facility] Comment on above: Performed By: #### C BC #### [facility] [address] [place] [address] Dr. John Bertrand Eosinophils/100 WBC (Bld) 2.7 % Normal 0.9-7.0 [facility] Comment on above: Performed By: #### C BC #### [facility] [address] [place] [address] Dr. John Bertrand Erythrocyte distribution width (RBC) [Ratio] 13.9 % Normal 11.0-15.0 [facility] Comment on above: Performed By: #### C BC #### [facility] [address] [place] [address] Dr. John Bertrand Hematocrit (Bld) [Volume fraction] 44.8 % Normal 42.0-54.0 [facility] Comment on above: Performed By: #### C BC #### [facility] [address] [place] [address] Dr. John Bertrand Hemoglobin (Bld) [Mass/Vol] 14.8 g/dL Normal 14.0-18.0 [facility] Comment on above: Performed By: #### C BC #### [facility] [address] [place] [address] Dr. John Bertrand IG # 0.01 10e3/ul Normal 0.00-0.03 [facility] Comment on above: Performed By: #### C BC #### [facility] [address] [place] [address] Dr. John Bertrand IG % 0.2 % Normal 0.0-0.5 [facility] Comment on above: Performed By: #### C BC #### [facility] [address] [place] [address] Dr. John Bertrand LYMPH # 1.9 103/ul Normal 1.2-3.8 [facility] Comment on above: Performed By: #### C BC #### [facility] [address] [place] [address] Dr. John Bertrand Lymphocytes/100 WBC (Bld) 37.0 % Normal 20.5-60.0 [facility] Comment on above: Performed By: #### C BC #### [facility] [address] [place] [address] Dr. John Bertrand MANUAL DIFF REQ NO Normal [facility] Comment on above: Performed By: #### C BC #### [facility] [address] [place] [address] Dr. John Bertrand MCH (RBC) [Entitic mass] 27.2 pg Normal 25.9-34.0 [facility] Comment on above: Performed By: #### C BC #### [facility] [address] [place] [address] Dr. John Bertrand MCHC (RBC) [Mass/Vol] 33.0 g/dL Normal 29.9-35.2 [facility] Comment on above: Performed By: #### C BC #### [facility] [address] [place] [address] Dr. John Bertrand MCV (RBC) [Entitic vol] 82.4 fL Normal 80.0-94.0 [facility] Comment on above: Performed By: #### C BC #### [facility] [address] [place] [address] Dr. John Bertrand MONO # 0.5 103/ul Normal 0.3-0.8 [facility] Comment on above: Performed By: #### C BC #### [facility] [address] [place] [address] Dr. John Bertrand Monocytes/100 WBC (Bld) 8.8 % Normal 1.7-12.0 [facility] Comment on above: Performed By: #### C BC #### [facility] [id number] John Bertrand NEUT # 2.7 103/ul Normal 1.4-6.5 [facility] Comment on above: Performed By: #### C BC #### [facility] [address] [address] [address] John Bertrand Neutrophils/100 WBC (Bld) 50.7 % Normal 43.0-75.0 [facility] Comment on above: Performed By: #### C BC #### [facility] [address] [address] [address] John Bertrand Platelet mean volume (Bld) [Entitic vol] 9.5 fL Normal 9.5-13.5 [facility] Comment on above: Performed By: #### C BC #### [facility] [address] [address] [address] John Bertrand PLT 235 103/ul Normal 150-450 [facility] Comment on above: Performed By: #### C BC #### [facility] [address] [address] [address] John Bertrand RBC 5.44 106/ul Normal 4.70-6.10 [facility] Comment on above: Performed By: #### C BC #### [facility] [address] [address] [address] John Bertrand WBC 5.3 103/ul Normal 4.0-11.0 [facility] Comment on above: Performed By: #### C BC #### [facility] [address] [address] [address] John Bertrand FREE THYROXINE INDEX T7on FTI 2.16 Normal 1.30-4.50 [facility] Comment on above: Performed By: #### T SH, CMP, T7, LIPID ####[facility] [address] [address]Dr. John Bertrand T3U 36.0 % Normal 33.0-40.0 [facility] Comment on above: Performed By: #### T SH, CMP, T7, LIPID ####[facility] [address] [place], [place] [address]YwDr. John Bertrand T4 [Mass/Vol] 6.00 ug/dL Normal 4.50-12.10 [facility] Comment on above: Performed By: #### T SH, CMP, T7, LIPID ####[facility] [address] [place], [place] [address]ScAgnes Bertrand GLYCOHEMOGLOBIN A1Con 2022 ADA RECOMMENDATION SEE BELOW Normal [facility] Comment on above: Result Comment: ADA RECOMMENDED LIMIT 4.0 - 6.0 ADA THERAPEUTIC TARGET < 7.0 ACTION SUGGESTED > 7.0 Performed By: #### A 1C #### [facility] [address] [address] [address] John Bertrand Glucose [Mass/Vol] 154 mg/dL Normal [facility] Comment on above: Performed By: #### A 1C #### [facility] [address] [address] [address] John Bertrand HbA1c (Bld) [Mass fraction] 7.0 % Critically high 4.5-6.2 [facility] Comment on above: Performed By: #### A 1C #### [facility] [address] [address] [address] John Bertrand LIPID PROFILEon 01-14-2023 CHOL-HDL RATIO NORM SEE BELOW Normal [facility] Comment on above: Result Comment: 3.3 - 4.4 LOW RISK 4.4 - 7.1 AVERAGE RISK 7.1 - 11.0 MODERATE RISK >11.0 HIGH RISK Performed By: #### T SH, CMP, T7, LIPID ####[facility] [address] [place], [place] [address]CuAgnes Bertrand Cholesterol [Mass/Vol] 151 mg/dL Normal <=200 [facility] Comment on above: Performed By: #### T SH, CMP, T7, LIPID ####[facility] [address] [id number] Bertrand Cholesterol in HDL [Mass/Vol] 36 mg/dL Critically low 40-60 [facility] Comment on above: Performed By: #### T SH, CMP, T7, LIPID ####[facility] [address] [id number]. John Bertrand Cholesterol in LDL [Mass/Vol] 101.4 mg/dL Normal [facility] Comment on above: Performed By: #### T SH, CMP, T7, LIPID ####[facility] [address] [id number]. John Bertrand Cholesterol.total/Ch olesterol in HDL [Mass ratio] 4.2 {ratio} Normal [facility] Comment on above: Performed By: #### T SH, CMP, T7, LIPID ####[facility] [address] [id number]. John Bertrand HDL NORMAL > or = 60 mg/dl - LO W CARDIOVASCULAR RISK <40 mg/dl - HIGH CARDIOVASCULAR RISK Normal [facility] Comment on above: Performed By: #### T SH, CMP, T7, LIPID ####[facility] [address] [id number]. John Bertrand LDL CALC NORMAL SEE BELOW Normal [facility] Comment on above: Result Comment: <100 mg/dl OPTIMAL 100 - 129 mg/dl NEAR OR ABOVE OPTIMAL 130 - 159 mg/dl BORDERLINE HIGH 160 - 189 mg/dl HIGH >190 mg/dl VERY HIGH Performed By: #### T SH, CMP, T7, LIPID ####[facility] [address] [id number]. John Bertrand Triglyceride [Mass/Vol] 68 mg/dL Normal <=150 [facility] Comment on above: Performed By: #### T SH, CMP, T7, LIPID ####[facility] [address] [id number]. John Bertrand VLDL CALC 13.6 mg/dL Normal [facility] Comment on above: Performed By: #### T SH, CMP, T7, LIPID ####[facility] [address] [id number]. John Bertrand PROF 14(COMP METB)on 023 Albumin [Mass/Vol] 3.8 g/dL Normal 3.4-5.0 [facility] Comment on above: Performed By: #### T SH, CMP, T7, LIPID ####[facility] [address] [address]Dr. John Bertrand Albumin/Globulin [Mass ratio] 1.1 {ratio} Normal [facility] Comment on above: Performed By: #### T SH, CMP, T7, LIPID ####[facility] [address] [address]Dr. John Bertrand ALP [Catalytic activity/Vol] 71 U/L Normal 46-116 [facility] Comment on above: Performed By: #### T SH, CMP, T7, LIPID ####[facility] [address] [address]Dr. Nataliebrenda Bertrand ALT [Catalytic activity/Vol] 80 U/L Critically high 16-63 [facility] Comment on above: Performed By: #### T SH, CMP, T7, LIPID ####[facility] [address] [address]Dr. John Bertrand Anion gap [Moles/Vol] 11.2 mmol/L Normal [facility] Comment on above: Performed By: #### T SH, CMP, T7, LIPID ####[facility] [address] [place], [place] [address]Dr. Nataliebrenda Bertrand AST [Catalytic activity/Vol] 39 U/L Critically high 15-37 [facility] Comment on above: Performed By: #### T SH, CMP, T7, LIPID ####[facility] [address] [place], [place] [address]Dr. Nataliebrenda Bertrand Bilirubin [Mass/Vol] 0.4 mg/dL Normal 0.2-1.0 [facility] Comment on above: Performed By: #### T SH, CMP, T7, LIPID ####[facility] [address] [place], [place] [address]Dr. Nataliebrenda Bertrand Calcium [Mass/Vol] 9.2 mg/dL Normal 8.5-10.1 [facility] Comment on above: Performed By: #### T SH, CMP, T7, LIPID ####[facility] [address] [place], [place] [address]Dr. John Bertrand Chloride [Moles/Vol] 107 mmol/L Normal 98-107 [facility] Comment on above: Performed By: #### T SH, CMP, T7, LIPID ####[facility] [address] [address]Dr. John Bertrand CO2 [Moles/Vol] 26.8 mmol/L Normal 21.0-32.0 [facility] Comment on above: Performed By: #### T SH, CMP, T7, LIPID ####[facility] [address] [address]Dr. John Bertrand Creatinine [Mass/Vol] 1.21 mg/dL Normal 0.70-1.30 [facility] Comment on above: Performed By: #### T SH, CMP, T7, LIPID ####[facility] [address] [address]Dr. John Bertrand EGFR-AF BOTSWANAN >60 Normal >=60 [facility] Comment on above: Performed By: #### T SH, CMP, T7, LIPID ####[facility] [address] [address]Dr. John Bertrand EGFR-NON AF BOTSWANAN >60 Normal >=60 [facility] Comment on above: Performed By: #### T SH, CMP, T7, LIPID ####[facility] [address] [address]Dr. John Bertrand Globulin (S) [Mass/Vol] 3.5 g/dL Normal [facility] Comment on above: Performed By: #### T SH, CMP, T7, LIPID ####[facility] [address] [address]Dr. John Bertrand Glucose [Mass/Vol] 140 mg/dL Critically high 74-106 [facility] Comment on above: Performed By: #### T SH, CMP, T7, LIPID ####[facility] [address] [address]Dr. John Bertrand Potassium [Moles/Vol] 4.0 mmol/L Normal 3.5-5.1 [facility] Comment on above: Performed By: #### T SH, CMP, T7, LIPID ####[facility] [address] [address]Dr. John Bertrand Protein [Mass/Vol] 7.3 g/dL Normal 6.4-8.2 [facility] Comment on above: Performed By: #### T SH, CMP, T7, LIPID ####[facility] [address] [address]Dr. John Bertrand Sodium [Moles/Vol] 141 mmol/L Normal 136-145 [facility] Comment on above: Performed By: #### T SH, CMP, T7, LIPID ####[facility] [address] [address]Dr. John Bertrand Urea nitrogen [Mass/Vol] 11.0 mg/dL Normal 7.0-18.0 [facility] Comment on above: Performed By: #### T SH, CMP, T7, LIPID ####[facility] [address] [address]Dr. John Bertrand Urea nitrogen/Creatinine [Mass ratio] 9.1 mg/mg Normal [facility] Comment on above: Performed By: #### T SH, CMP, T7, LIPID ####[facility] [address] [address]Dr. John Bertrand TSHon 01-14-2023 TSH 1.532 uIU/mL Normal 0.358-3.740 [facility] Comment on above: Performed By: #### T SH, CMP, T7, LIPID ####[facility] [address] [address]Dr. John Bertrand Physician Referralon 023 Physician Referral [id number] Normal [facility] CT ABD/PELV [...] by: GLORIA STRANGE Date: 2022-12-16 09:20 Normal [facility] ECHOCARDIO M/2D COMPLETEon 0 12-16-2022 ECHOCARDIO M/2D COMPLETE Patient: FLYNN ARNETT Exam Date: 12/16/2022 : 1965 Gender:M Ordering : DR LAUREN VELASQUEZ . Admission #: [id number] Family : Order #: [id number] CLICK HERE TO VIEW EXAM ECHOCARDIOGRAM REPORT [...] M.D. on 12/16/2022 at 12:11 Normal [facility]on SARS-CoV-2 (COVID-19) RNA THALIA+probe Ql (Unsp spec) Not detected Normal NOT DETECTED [facility] Comment on above: Result Comment: This test is not yet approved or cleared by the [place] FDA. When there are no FDA-approved or cleared tests available, and other criteria are met, FDA can make tests available under an emergency access mechanism called an Emergency Use Authorization (EUA). The EUA for this test is supported by the Microbiology Technologist of Health and Human Service's (HHS's) declaration [...] SARS-CoV-2. Performed By: #### C VDTB #### [facility] [address] [place] [address] Dr. John Bertrand INFLUENZA A [facility] Normal [facility] Comment on above: Result Comment: Nega tive for Flu A protein angiten. Infection due to Flu A cannot be ruled out. Flu A angiten in the sample may be below the detection limit of the test. Performed By: #### I NFLUAB #### [facility] [address] [place] [address] Dr. John Bert[facility] SEE BEL[facility] Normal [facility] Comment on above: Result Comment: Nega tive for Flu B protein antigen. Infection due to Flu B cannot be ruled out. Flu B antigen in the sample may be below the detection limit of the test. Performed By: #### I NFLUAB #### [facility] [address] [place] [address] Dr. John Bertrand INFLUENZA A AG Negative Normal NEGATIVE SEE COMMENT [facility] Comment on above: Performed By: #### I NFLUAB #### [facility] [address] [place] [address] Dr. John Bertrand INFLUENZA B AG Negative Normal NEGATIVE SEE COMMENT [facility] Comment on above: Performed By: #### I NFLUAB #### [facility] [address] [place] [address] Dr. John Bertrand INTERNAL CONTROLS Within Normal Limits Normal Wi thin Normal Limits [facility] Comment on above: Performed By: #### I NFLUAB #### [facility] [address] [place] [address] Dr. John Bertrand SYMPTOMATIC COVID-19 ANTIGEN on 03-06-2022 EUA Statement SEE BELOW Normal [facility] Comment on above: Result Comment: This [...] sooner. Performed By: #### C VDAGS #### [facility] [address] [place] [address] Dr. John Bertrand SARS-CoV-2 (COVID-19) RNA THALIA+probe Ql (Unsp spec) Negative Normal NEGATIVE [facility] Comment on above: Performed By: #### C VDAGS #### [facility] [address] [place], [place] [id number] Dr. John Bertrand Vital Signs Date Time Vital Sign Value Performing Clinician Facility 05-10-2023 09:20-0400 Body height 175.26 cm Monica Jackson Other [facility] Other 05-10-2023 09:20-0400 Body mass index (BMI) [Ratio] 33.96 kg/m2 Monica Jackson Other [facility] Other 05-10-2023 09:20-0400 Body temperature 99 [degF] Monica Jackson Other [facility] Other 05-10-2023 09:20-0400 Body weight 104.33 kg Monica Jackson Other [facility] Other 05-10-2023 09:20-0400 Diastolic blood pressure 102 mm[Hg] Monica Jackson Other [facility] Other 05-10-2023 09:20-0400 Respiratory rate 18 /min Monica Jackson Other [facility] Other 05-10-2023 09:20-0400 SaO2% (BldA) [Mass fraction] 97 % Monica Jackson Other [facility] Other 05-10-2023 09:20-0400 Systolic blood pressure 141 mm[Hg] Monica Cardozamond Other [facility] Other 01-09-2023 15:29-0400 Blood Pressure Location Colt STUART [facility] 01-09-2023 15:29-0400 Diastolic blood pressure 98 mm[Hg] Colt STUART [facility] 01-09-2023 15:29-0400 Heart rate 80 /min Colt STUART [facility] [place] 01-09-2023 15:29-0400 Respiratory rate 16 /min Colt STUART [facility] [place] 01-09-2023 15:29-0400 Systolic blood pressure 146 mm[Hg] Colt STUART [facility] [place] Encounters Encounter Date Encounter Type Care Provider Facility Start: 10-27-2024 End: 10-27-2024 [facility] Start: 04-15-2024 End: 04-15-2024 ambulatory TANK PIERRE [facility] Start: 05-10-2023 End: 05-10-2023 ambulatory Monica Jackson Other [facility] Other Start: 05-10-2023 Office outpatient ne w 20 minutes Monica Jackson [facility] Start: 02-12-2023 Encounter for other preprocedural examination DR ADONIS WEBSTER [facility] Start: 02-12-2023 Encounter for preprocedural laboratory examination DR ADONIS WEBSTER [facility] Start: 02-06-2023 End: 02-07-[address] LAUREN VELASQUEZ . Facility:[facility] Start: 02-06-2023 End: 02-07-2023 Encounter for preprocedural laboratory examination DR LAUREN VELASQUEZ . Facility:[facility] Start: 01-20-2023 Encounter for genera l adult medical examination without abnormal findings DR LAUREN VELASQUEZ . [facility] Start: 01-14-2023 End: 01-15-[address] LAUREN VELASQUEZ . Facility:[facility] Start: 01-14-2023 End: 01-15-2023 Encounter for general adult medical examination without abnormal findings DR LAUREN VELASQUEZ . Facility: Start: 01-09-2023 End: 01-10-2023 ambulatory Colt STUART Facility[facility] Start: 01-09-2023 End: 01-09-2023 Patient encounter procedure Colt STUART [facility]havani Alejandro Start: 12-16-2022 End: 12-17-[address] LAUREN VELASQUEZ . Facility: Start: 03-06-2022 End: 03-06-[address] LAUREN VELASQUEZ . Facility: Procedures Date Procedure Procedure Detail Performing Clinician Start: 01-14-2023 PSA screening MONICA SANTOS Comment on above: Performed By: #### P [facility] #### [facility] [address] [place] [address] Dr. John Bertrand Open reduction of fracture with internal fixation Colt MYERSL Comment on above: right arm Immunizations Immunization Date Immunization Notes Care Provider Ashley horvath NEGATED: Highlighted row has not occurred!01-09-2023 influenza virus vaccine, unspecified formulation Colt STUART [facility] [place] NEGATED: Highlighted row has not occurred!01-09-2023 SARS-CoV-2 mRNA (tozinameran 5y-11y) vaccine Colt MYERSL [facility] Payers Date Payer Category Payer Unknown [id number] [id number] 1965 Unknown [id number] 2.16.84 [id number] 1965 Unknown [id number] 2.16.84 [id number] 1965 Unknown [id number] 2.16.84 [id number] 1965 Unknown [id number] 2.16.84 [id number] 1965 Unknown [id number] 2.16.84 [id number] 1957 Self-pay [id number] 1957 Unknown [id number] 1957 Unknown [id number] Social History Date Type Detail Facility Start: 01-09-2023 Tobacco smoking status Never s moked tobacco (finding) [facility] Tobacco smoking status Never [facility] Sex Assigned At Male [facility] Functional Status Date Assessment Result Facility [...] mitral valve regurgitation. He was switched from [employer] to [employer] due to cost. Had echo last month, [...] takes less th (more content not included)... [facility] 04-15-2024 Note Aortic dilitation re yulia stable Will repeat Echocardiogram in 1 year D/w pt importance of statin and HTN management and he voiced understanding [facility] 04-15-2024 Note Hypertension is curr ently controlled- he has stopped taking coreg, lasix and jardiance- He does monitor b/p at home and typically b/p remains < 130/80 [facility] 04-15-2024 Note stable [facility] 04-15-2024 Note S/P MV repair- ring Ring with normal doppler flows on TTE No concerning symptoms currently [facility] 04-15-2024 Note [facility] I currently euv olemic without exacerbation HE has stopped jardiance and lasix r/t lightheadedness/dizzyness and symptoms have resolved. He has lost weight since his last visit and overall doing well. Monitor daily weights, I&O, fluid restriction 1.5-2L/day, renal function and electrolytes- [facility] 04-15-2024 Note [facility] CARDIOLOGY PROGR ESS [...] regurgitation. He was switched from [employer] to [employer] due to cost. Had echo last month, [...] he stopped ze (more content not included)... [facility] 04-15-2024 Note Patient here for 6 [...] All other systems reviewed and are negative. [facility] 05-10-2023 Evaluation note Encounter Date Diagnosis [...] tomorrow. You may also follow-up with an all around gear machine operator if no improvement. Go to the ER for worsening symptoms or concerns May, Left ear impacted cerumen (ICD-10 - H61.22) Cerumen impaction home care material was printed May, Right ear impacted cerumen (ICD-10 - H61.21) [facility] Other 04-07-2023 NoteChief Complaint consultation for umbilical [...] YADI PEPE, BETI Lees [place] [address]- Additional Instructions: Problem List/Past Medical [...] Colt Dudley\.br\Date and Time Signed: 01/09/23 15:56 [id number] Hospital Discharge instructions Follow Up Care 12/18/2022 13:20:00 With:YADI PEPE, BETI Lees Address: [address] [place] [address]- When: only if needed [facility] Evaluation + Plan note No data available for this section [facility] [place] History general Narrative - Reported* Type Description Date Medical History GERD Medical History HYPERLIPIDEMIA Hospitalization History KNEE CELLULITIS [facility] Other Progress note No data available for this section [facility] [place] Summary Purpose Family History No Family History Records FoundNo Family History Records FoundNo Family History Records Found Advance Directives No Advanced Directives Records FoundNo Advanced Directives Records FoundNo Advanced Directives Records Found Additional Source Comments Patient Care team informatio n (unrecognized section and content) Personnel Name: Lauren Velasquez MD Address: Address: [address] [place], [place] [address] [address]- (unrecognized sect ion and content) No Status Records FoundNo Status Records FoundNo Status Records Found INFORMATION SOURCE (unrecogn ized section and content) DATE CREATED AUTHOR [facility]/11/2023 [facility] DATE CREATED AUTHOR AUTHOR'S ORGANIZ ATION 02/13/2023 [facility] DATE CREATED AUTHOR AUTHOR'S ORGANIZ ATION 10/29/2024 [facility] REASON FOR VISIT (unrecogniz ed [...] BE BASED ON THE PRIMARY CLINICAL RECORDS. [facility] [employer] provides no warranty or guarantee of the accuracy or completeness of information in this document.
--- NOTE | 2024-11-22 07:05 | CA_ITS ---
The [address] [address] Patient Name: FLYNN ARNETT MRN: [id number] date: 1965 Sex: M Assigned Patient Location: CARD Current Patient Location: CARD Accession/Order Number: [id number] Exam Date: 12/02/2017 13:08 Report Date: 12/02/2017 13:10 At the request of: DANIEL JACOB MD Procedure: CA echo doppler complete Two-view chest COMPARISON: 11/02/17 HISTORY: Cough and sore throat. Central chest pain for three weeks. Smoker. Cardiac device present. Cardiac, mediastinal hilar silhouettes are stable. Mild chronic interstitial lung prominence identified. No acute lung process, pleural effusion or pneumothorax identified. Bony structures are intact.
--- NOTE | 2024-11-22 11:41 | CA_ITS ---
Patient Name: FLYNN ARNETT MR#: [id number] : 1965 Exam Date: 11/22/2024 Ordering Doctor: DR DANIEL WEBSTER M.D. ECHOCARDIOGRAM REPORT PROCEDURE: CA ECHO DOPPLER COMPLETE INDICATIONS: Mitral valve regurgitation COMPARISON: None. DESCRIPTION: COMPLETE ECHOCARDIOGRAM Real-time transthoracic echocardiography with 2D, M-mode, spectral and color flow Doppler performed. QUALITY: Technical quality was good. LEFT VENTRICLE: Normal chamber size. Moderate concentric left ventricular hypertrophy. LV EF: Global left ventricular systolic function is normal. Calculated left ventricular ejection fraction is 63%. No significant wall motion abnormalities. DIASTOLIC: Diastolic function cannot be assessed. E/E' suggestive of volume overload. ATRIAL SEPTUM: Inadequately seen. LEFT ATRIUM: Severe dilatation. RIGHT ATRIUM: Mild dilatation. RIGHT VENTRICLE: Normal chamber size. Normal right ventricular systolic function. TRICUSPID VALVE: Normal mobility and thickness. No stenosis with trivial regurgitation. No evidence of pulmonary hypertension. RVSP 34mmHg MITRAL VALVE: Evidence of prior mitral valve ring and repair seen. Mild to moderate mitral regurgitation. V-max 1.43 m/s, mean gradient 2.92 mmHg. AORTIC VALVE: Normal trileaflet appearance. No visible sclerosis. Normal leaflet mobility. No evidence of aortic valve stenosis. Mild aortic regurgitation. AORTIC ROOT: Normal diameter and appearance. Mild dilatation of the ascending aorta measuring 4.0 cm which is mildly increased from previous study of 04/08/24 at 3.9cm. PULMONIC VALVE: Normal thickness and mobility. No stenosis. Trivial regurgitation. PERICARDIUM: No evidence of pericardial effusion. IVC: Collapses with inspirations. Normal size. CONCLUSION: 1. Global left ventricular systolic function is normal; visually estimated ejection fraction of 60 to 65% 2. Normal right ventricular size and systolic function 3. Moderate left ventricular hypertrophy 4. E/E' prime suggestive of volume overload 5. The left atrium is severely dilated 6. Right atrium is mildly dilated 7. Evidence of prior mitral valve repair and ring seen; mild to moderate mitral regurgitation 8. Mild aortic valve regurgitation 9. The ascending aorta is mildly dilated Adult Echocardiography Procedure Report Left Ventricle LVEDD (3.7 - 5.6 cm): 5.23 cm LVESD (2.2 - 4.0 cm): 3.60 cm LVIVS thickness (0.6 - 1.2 cm): 1.52 cm LVPW thickness (0.5 - 1.0 cm): 1.44 cm e': 0.06 m/s E - e': 21.16 LVOT Max Gradient: 3.94 mm[Hg] LVOT Area (cm2): 0.99 m/s Peak Velocity (LVOT): 0.99 m/s Mean Velocity (LVOT): 0.67 m/s LVOT Diameter 2.17 cm Left Atrium LA Volume Index (2D A2C): 55.32 ml/m2 Left Atrium Systolic Dimension: 4.71 cm Mitral Valve MV E to A Ratio: 1.12 Mitral Valve A-Wave Peak Velocity: 1.10 m/s Mitral Valve E-Wave Peak Velocity: 1.24 m/s Right Ventricle RV Internal Diastolic Dimension: 3.29 cm Aorta AO Root Diam: 3.80 cm Ascending Ao Diam: 4.01 cm Aortic Valve AoV Area (Peak Donal): 2.67 cm2, 2.67 cm2 AoV Area (VTI): 2.67 cm2, 2.67 cm2 Peak Velocity(Antegrade Flow): 1.37 m/s Peak Gradient(Antegrade Flow): 7.52 mm[Hg] Mean Velocity(Antegrade Flow): 1.01 m/s Mean Gradient(Antegrade Flow): 4.60 mm[Hg] Velocity Time Integral: 36.81 cm Tricuspid Valve Peak Velocity (Regurgitant Flow): 2.79 m/s, 2.37 m/s, 2.17 m/s Pulmonic Valve Mean Gradient: 2.53 mm[Hg], 1.68 mm[Hg] Mean Velocity: 0.73 m/s, 0.61 m/s Peak Velocity: 1.04 m/s Peak Gradient: 5.52 mm[Hg], 3.22 mm[Hg] Right Atrium Right Atrium Systolic Pressure: 43.62 ml, 43.62 ml Dictated by: Daniel Webster M.D. on 11/22/2024 at 12:12 Approved by: Daniel Webster M.D. on 11/22/2024 at 12:19
== END 2024-11-22 07:02 | disposition home or self-care (01) ==
LOC: CARD 07:02
PROVIDERS: PCP Family Medicine; Visit Provider Internal Medicine Interventional Cardiology
DX: I34.0 Nonrheumatic mitral (valve) insufficiency (principal); E78.5 Hyperlipidemia, unspecified
CPT/HCPCS: 93306

== ENCOUNTER 2025-01-15 17:15 | Observation (INO) | payer BC, SELFPAY ==
[2025-01-15] VITALS (49 sets, daily range): BP systolic 100–158; BP diastolic 62–131; PULSE 36–150; TEMP 36.7; O2SAT 95–100; BMI 31.3
--- OUTSIDE RECORDS SUMMARY | 2025-01-15 17:21 | XMS_ITS | CCD ---
Author Organization [facility] Care Team Providers Care Medical Office Technician Name Role Phone Lauren Velasquez Primary Care [...] Care Unavailable ELTAHAWY, DR SANCHEZ Admitting Unavailable ELPACO, DR SANCHEZ Attending Unavailable NIDIA, DR SANCHEZ Consulting Unavailable Monica Jackson Unavailable ADONIS WEBSTER Attending Unavailable NIDIA, ADONIS Attending Unavailable TANK PIERRE Attending Unavailable Medications Current Medications Medication Drug [...] (1 source) Restless legs 12-19-2022 Chronic Other lower respiratory disease (2 sources) Other forms of dyspnea; Translations: [Other forms of dyspnea] Onset: 12-06-2024 Episodic Other nutritional; endocrine; and metabolic disorders (1 [...] states; Translations: [Other specified postprocedural states] Onset: 12-06-2024 Episodic Unclassified (1 source) Aneurysm of the [...] Value Interpretation Reference Range Facility Office Vis[facility] 12-06-2024 Follow-up visit [id number] Flynn Arnett 1965 M Date Provider Department Center 12/06/2024 JarrodADONIS GOLDSTEIN [facility] Family History Problem Relation Age of Onset No Known Problems Mother No Known Problems Father Family Status - Relation Status Age at Mother Father Level of Service:91150 [place] OFFICE/OUTPATIENT ESTABLISHED MOD MDM 30 MIN Normal [facility] Office [facility] 10-27-2024 Follow-up visit [id number] Flynn Arnett 1965 M Date Provider Department Center 10/27/2024 JarrodADONIS GOLDSTEINevue [facility] Family History Problem Relation Age of Onset No Known Problems Mother No Known Problems Father Family Status - Relation Status Age at Mother Father Level of Service:51935 [place] OFFICE/OUTPATIENT ESTABLISHED MOD MDM 30 MIN Normal [facility] Office [facility] 04-15-2024 Follow-up visit [id number] Flynn Arnett 1965 M Date Provider Department Center 04/15/2024 TANK BECKHAM [facility] Family History Problem Relation Age of Onset No Known Problems Mother No Known Problems Father Family Status - Relation Status Age at Mother Father Level of Service:72563 [place] OFFICE/OUTPATIENT ESTABLISHED MOD MDM 30 MIN Normal [facility] CBC AUTO DIFFon 02-06-2023 BASO # 0.0 103/ul Normal 0.0-0.1 [facility] Comment on above: Performed By: #### C BC #### [facility] [address] [place] [address] Dr. John Bertrand Basophils/100 WBC (Bld) 0.4 % Normal 0.2-2.0 [facility] Comment on above: Performed By: #### C BC #### [facility] [address] [place] [address] Dr. John Bertrand EO # 0.2 103/ul Normal 0.0-0.7 [facility] Comment on above: Performed By: #### C BC #### [facility] [address] [place] [address] Dr. John Bertrand Eosinophils/100 WBC (Bld) 3.1 % Normal 0.9-7.0 [facility] Comment on above: Performed By: #### C BC #### [facility] [address] [place] [address] Dr. John Bertrand Erythrocyte distribution width (RBC) [Ratio] 13.9 % Normal 11.0-15.0 [facility] Comment on above: Performed By: #### C BC #### [facility] [address] [place] [address] Dr. John Bertrand Hematocrit (Bld) [Volume fraction] 43.8 % Normal 42.0-54.0 [facility] Comment on above: Performed By: #### C BC #### [facility] [address] [place] [address] Dr. John Bertrand Hemoglobin (Bld) [Mass/Vol] 14.4 g/dL Normal 14.0-18.0 [facility] Comment on above: Performed By: #### C BC #### [facility] [address] [place] [address] Dr. John Bertrand IG # 0.01 10e3/ul Normal 0.00-0.03 [facility] Comment on above: Performed By: #### C BC #### [facility] [address] [place] [address] Dr. John Bertrand IG % 0.2 % Normal 0.0-0.5 [facility] Comment on above: Performed By: #### C BC #### [facility] [address] [place] [address] Dr. John Bertrand LYMPH # 2.3 103/ul Normal 1.2-3.8 [facility] Comment on above: Performed By: #### C BC #### [facility] [address] [place] [address] Dr. John Bertrand Lymphocytes/100 WBC (Bld) 41.1 % Normal 20.5-60.0 [facility] Comment on above: Performed By: #### C BC #### [facility] [address] [place] [address] Dr. John Bertrand MANUAL DIFF REQ NO Normal [facility] Comment on above: Performed By: #### C BC #### [facility] [address] [place] [address] Dr. John Bertrand MCH (RBC) [Entitic mass] 27.6 pg Normal 25.9-34.0 [facility] Comment on above: Performed By: #### C BC #### [facility] [address] [place] [address] Dr. John Bertrand MCHC (RBC) [Mass/Vol] 32.9 g/dL Normal 29.9-35.2 [facility] Comment on above: Performed By: #### C BC #### [facility] [address] [place] [address] Dr. John Bertrand MCV (RBC) [Entitic vol] 83.9 fL Normal 80.0-94.0 [facility] Comment on above: Performed By: #### C BC #### [facility] [address] [place] [address] Dr. John Bertrand MONO # 0.5 103/ul Normal 0.3-0.8 [facility] Comment on above: Performed By: #### C BC #### [facility] [address] [place] [address] Dr. John Bertrand Monocytes/100 WBC (Bld) 9.0 % Normal 1.7-12.0 [facility] Comment on above: Performed By: #### C BC #### [facility] [address] [place] [address] Dr. John Bertrand NEUT # 2.5 103/ul Normal 1.4-6.5 [facility] Comment on above: Performed By: #### C BC #### [facility] [address] [place] [address] Dr. John Bertrand Neutrophils/100 WBC (Bld) 46.2 % Normal 43.0-75.0 [facility] Comment on above: Performed By: #### C BC #### [facility] [address] [place] [address] Dr. John Bertrand Platelet mean volume (Bld) [Entitic vol] 9.6 fL Normal 9.5-13.5 [facility] Comment on above: Performed By: #### C BC #### [facility] [address] [place] [address] Dr. John Bertrand PLT 223 103/ul Normal 150-450 [facility] Comment on above: Performed By: #### C BC #### [facility] [address] [address] [address] John Bertrand RBC 5.22 106/ul Normal 4.70-6.10 [facility] Comment on above: Performed By: #### C BC #### [facility] [address] [address] [address] John Bertrand WBC 5.5 103/ul Normal 4.0-11.0 [facility] Comment on above: Performed By: #### C BC #### [facility] [address] [place] [address] Dr. John Bertrand PROF CHEM 8 (BAS METB)on Anion gap [Moles/Vol] 9.3 mmol/L Normal [facility] Comment on above: Performed By: #### B MP #### [facility] [address] [place] [address] Dr. John Bertrand Calcium [Mass/Vol] 8.7 mg/dL Normal 8.5-10.1 [facility] Comment on above: Performed By: #### B MP #### [facility] [address] [place] [address] Dr. John Bertrand Chloride [Moles/Vol] 105 mmol/L Normal 98-107 [facility] Comment on above: Performed By: #### B MP #### [facility] [address] [address] [address] John Bertrand CO2 [Moles/Vol] 27.6 mmol/L Normal 21.0-32.0 [facility] Comment on above: Performed By: #### B MP #### [facility] [address] [place] [address] Dr. John Bertrand Creatinine [Mass/Vol] 1.28 mg/dL Normal 0.70-1.30 [facility] Comment on above: Performed By: #### B MP #### [facility] [address] [address] [address] John Bertrand EGFR-AF [place]AN >60 Normal >=60 [facility] Comment on above: Performed By: #### B MP #### [facility] [address] [address] [address] John Bertrand EGFR-NON AF [place] 58 mL/min/1.73m2 Critically low >=60 [facility] Comment on above: Performed By: #### B MP #### [facility] [address] [address] [address] Jhon Bertrand Glucose [Mass/Vol] 137 mg/dL Critically high 74-106 [facility] Comment on above: Performed By: #### B MP #### [facility] [address] [place] [address] Dr. John Bertrand Potassium [Moles/Vol] 3.9 mmol/L Normal 3.5-5.1 [facility] Comment on above: Performed By: #### B MP #### [facility] [address] [address] [address] John Bertrand Sodium [Moles/Vol] 138 mmol/L Normal 136-145 [facility] Comment on above: Performed By: #### B MP #### [facility] [address] [place] [address] Dr. John Bertrand Urea nitrogen [Mass/Vol] 16.0 mg/dL Normal 7.0-18.0 [facility] Comment on above: Performed By: #### B MP #### [facility] [address] [address] [address] John Bertrand Urea nitrogen/Creatinine [Mass ratio] 12.5 mg/mg Normal [facility] Comment on above: Performed By: #### B MP #### [facility] [address] [place] [address] Dr. John Bertrand CBC AUTO DIFFon 01-14-2023 BASO # 0.0 103/ul Normal 0.0-0.1 [facility] Comment on above: Performed By: #### C BC #### [facility] [address] [place] [address] Dr. John Bertrand Basophils/100 WBC (Bld) 0.6 % Normal 0.2-2.0 [facility] Comment on above: Performed By: #### C BC #### [facility] [address] [place] [address] Dr. John Bertrand EO # 0.1 103/ul Normal 0.0-0.7 [facility] Comment on above: Performed By: #### C BC #### [facility] [address] [place] [address] Dr. John Bertrand Eosinophils/100 WBC (Bld) 2.7 % Normal 0.9-7.0 [facility] Comment on above: Performed By: #### C BC #### [facility] [address] [place] [address] Dr. John Bertrand Erythrocyte distribution width (RBC) [Ratio] 13.9 % Normal 11.0-15.0 [facility] Comment on above: Performed By: #### C BC #### [facility] [address] [place] [address] Dr. John Bertrand Hematocrit (Bld) [Volume fraction] 44.8 % Normal 42.0-54.0 [facility] Comment on above: Performed By: #### C BC #### [facility] [address] [place] [address] Dr. John Bertrand Hemoglobin (Bld) [Mass/Vol] 14.8 g/dL Normal 14.0-18.0 [facility] Comment on above: Performed By: #### C BC #### [facility] [address] [place] [address] Dr. John Bertrand IG # 0.01 10e3/ul Normal 0.00-0.03 [facility] Comment on above: Performed By: #### C BC #### [facility] [address] [place] [address] Dr. John Bertrand IG % 0.2 % Normal 0.0-0.5 [facility] Comment on above: Performed By: #### C BC #### [facility] [address] [place] [address] Dr. John Bertrand LYMPH # 1.9 103/ul Normal 1.2-3.8 [facility] Comment on above: Performed By: #### C BC #### [facility] [address] [place] [address] Dr. John Bertrand Lymphocytes/100 WBC (Bld) 37.0 % Normal 20.5-60.0 [facility] Comment on above: Performed By: #### C BC #### [facility] [address] [place] [address] Dr. John Bertrand MANUAL DIFF REQ NO Normal [facility] Comment on above: Performed By: #### C BC #### [facility] [address] [place] [address] Dr. John Bertrand MCH (RBC) [Entitic mass] 27.2 pg Normal 25.9-34.0 [facility] Comment on above: Performed By: #### C BC #### [facility] [address] [place] [address] Dr. John Bertrand MCHC (RBC) [Mass/Vol] 33.0 g/dL Normal 29.9-35.2 [facility] Comment on above: Performed By: #### C BC #### [facility] [address] [place] [address] Dr. John Bertrand MCV (RBC) [Entitic vol] 82.4 fL Normal 80.0-94.0 [facility] Comment on above: Performed By: #### C BC #### [facility] [address] [place] [address] Dr. John Bertrand MONO # 0.5 103/ul Normal 0.3-0.8 [facility] Comment on above: Performed By: #### C BC #### [facility] [address] [place] [address] Dr. John Bertrand Monocytes/100 WBC (Bld) 8.8 % Normal 1.7-12.0 [facility] Comment on above: Performed By: #### C BC #### [facility] [address] [address] [address] John Bertrand NEUT # 2.7 103/ul Normal 1.4-6.5 [facility] Comment on above: Performed By: #### C BC #### [facility] [address] [address] [address] John Bertrand Neutrophils/100 WBC (Bld) 50.7 % Normal 43.0-75.0 [facility] Comment on above: Performed By: #### C BC #### [facility] [address] [address] [address] John Bertrand Platelet mean volume (Bld) [Entitic vol] 9.5 fL Normal 9.5-13.5 [facility] Comment on above: Performed By: #### C BC #### [facility] [address] [address] [address] John Bertrand PLT 235 103/ul Normal 150-450 [facility] Comment on above: Performed By: #### C BC #### [facility] [address] [address] [address] John Bertrand RBC 5.44 106/ul Normal 4.70-6.10 [facility] Comment on above: Performed By: #### C BC #### [facility] [address] [address] [address] John Bertrand WBC 5.3 103/ul Normal 4.0-11.0 [facility] Comment on above: Performed By: #### C BC #### [facility] [address] [address] [address] John Bertrand FREE THYROXINE INDEX T7on FTI 2.16 Normal 1.30-4.50 [facility] Comment on above: Performed By: #### T SH, CMP, T7, LIPID ####[facility] [address] [address]Dr. John Bertrand T3U 36.0 % Normal 33.0-40.0 [facility] Comment on above: Performed By: #### T SH, CMP, T7, LIPID ####[facility] [address] [place], [place] [address]WoDr. John Bertrand T4 [Mass/Vol] 6.00 ug/dL Normal 4.50-12.10 [facility] Comment on above: Performed By: #### T SH, CMP, T7, LIPID ####[facility] [address] [place], [place] [address]WwAgnes Bertrand GLYCOHEMOGLOBIN A1Con 2022 ADA RECOMMENDATION SEE BELOW Normal [facility] Comment on above: Result Comment: ADA RECOMMENDED LIMIT 4.0 - 6.0 ADA THERAPEUTIC TARGET < 7.0 ACTION SUGGESTED > 7.0 Performed By: #### A 1C #### [facility] [address] [address] [address] John Bertrand Glucose [Mass/Vol] 154 mg/dL Normal [facility] Comment on above: Performed By: #### A 1C #### [facility] [address] [address] [address] John Bertrand HbA1c (Bld) [Mass fraction] 7.0 % Critically high 4.5-6.2 [facility] Comment on above: Performed By: #### A 1C #### [facility] [address] [address] [address] John Bertrand LIPID PROFILEon 01-14-2023 CHOL-HDL RATIO NORM SEE BELOW Normal [facility] Comment on above: Result Comment: 3.3 - 4.4 LOW RISK 4.4 - 7.1 AVERAGE RISK 7.1 - 11.0 MODERATE RISK >11.0 HIGH RISK Performed By: #### T SH, CMP, T7, LIPID ####[facility] [address] [place], [place] [address]SlAgnes Bertrand Cholesterol [Mass/Vol] 151 mg/dL Normal <=200 [facility] Comment on above: Performed By: #### T SH, CMP, T7, LIPID ####[facility] [address] [place], [place] [address]BvAgnse Bertrand Cholesterol in HDL [Mass/Vol] 36 mg/dL Critically low 40-60 [facility] Comment on above: Performed By: #### T SH, CMP, T7, LIPID ####[facility] [address] [place] [id number]. John Bertrand Cholesterol in LDL [Mass/Vol] 101.4 mg/dL Normal [facility] Comment on above: Performed By: #### T SH, CMP, T7, LIPID ####[facility] [address] [place] [id number]. John Bertrand Cholesterol.total/Ch olesterol in HDL [Mass ratio] 4.2 {ratio} Normal [facility] Comment on above: Performed By: #### T SH, CMP, T7, LIPID ####[facility] [address] [place] [id number]. John Bertrand HDL NORMAL > or = 60 mg/dl - LO W CARDIOVASCULAR RISK <40 mg/dl - HIGH CARDIOVASCULAR RISK Normal [facility] Comment on above: Performed By: #### T SH, CMP, T7, LIPID ####[facility] [address] [place] [address]Dr. John Bertrand LDL CALC NORMAL SEE BELOW Normal [facility] Comment on above: Result Comment: <100 mg/dl OPTIMAL 100 - 129 mg/dl NEAR OR ABOVE OPTIMAL 130 - 159 mg/dl BORDERLINE HIGH 160 - 189 mg/dl HIGH >190 mg/dl VERY HIGH Performed By: #### T SH, CMP, T7, LIPID ####[facility] [address] [place] [id number]. John Bertrand Triglyceride [Mass/Vol] 68 mg/dL Normal <=150 [facility] Comment on above: Performed By: #### T SH, CMP, T7, LIPID ####[facility] [address] [place] [id number]. John Bertrand VLDL CALC 13.6 mg/dL Normal [facility] Comment on above: Performed By: #### T SH, CMP, T7, LIPID ####[facility] [address] [place] [id number]. John Bertrand PROF 14(COMP METB)on 023 Albumin [Mass/Vol] 3.8 g/dL Normal 3.4-5.0 [facility] Comment on above: Performed By: #### T SH, CMP, T7, LIPID ####[facility] [address] [address]Dr. John Bertrand Albumin/Globulin [Mass ratio] 1.1 {ratio} Normal [facility] Comment on above: Performed By: #### T SH, CMP, T7, LIPID ####[facility] [address] [address]Dr. John Bertrand ALP [Catalytic activity/Vol] 71 U/L Normal 46-116 [facility] Comment on above: Performed By: #### T SH, CMP, T7, LIPID ####[facility] [address] [place] [address]Dr. John Bertrand ALT [Catalytic activity/Vol] 80 U/L Critically high 16-63 [facility] Comment on above: Performed By: #### T SH, CMP, T7, LIPID ####[facility] [address] [place] [address]Dr. John Bertrand Anion gap [Moles/Vol] 11.2 mmol/L Normal [facility] Comment on above: Performed By: #### T SH, CMP, T7, LIPID ####[facility] [address] [place], [place] [address]Dr. John Bertrand AST [Catalytic activity/Vol] 39 U/L Critically high 15-37 [facility] Comment on above: Performed By: #### T SH, CMP, T7, LIPID ####[facility] [address] [place], [place] [address]Dr. John Bertrand Bilirubin [Mass/Vol] 0.4 mg/dL Normal 0.2-1.0 [facility] Comment on above: Performed By: #### T SH, CMP, T7, LIPID ####[facility] [address] [place], [place] [address]Dr. John Bertrand Calcium [Mass/Vol] 9.2 mg/dL Normal 8.5-10.1 [facility] Comment on above: Performed By: #### T SH, CMP, T7, LIPID ####[facility] [address] [place], [place] [address]Dr. John Bertrand Chloride [Moles/Vol] 107 mmol/L Normal 98-107 [facility] Comment on above: Performed By: #### T SH, CMP, T7, LIPID ####[facility] [address] [place] [address]Dr. John Bertrand CO2 [Moles/Vol] 26.8 mmol/L Normal 21.0-32.0 [facility] Comment on above: Performed By: #### T SH, CMP, T7, LIPID ####[facility] [address] [place] [id number]. John Bertrand Creatinine [Mass/Vol] 1.21 mg/dL Normal 0.70-1.30 [facility] Comment on above: Performed By: #### T SH, CMP, T7, LIPID ####[facility] [address] [place] [address]Dr. John Bertrand EGFR-AF [place] >60 Normal >=60 [facility] Comment on above: Performed By: #### T SH, CMP, T7, LIPID ####[facility] [address] [address]Dr. John Bertrand EGFR-NON AF [place] >60 Normal >=60 [facility] Comment on above: Performed By: #### T SH, CMP, T7, LIPID ####[facility] [address] [place] [address]Dr. John Bertrand Globulin (S) [Mass/Vol] 3.5 g/dL Normal [facility] Comment on above: Performed By: #### T SH, CMP, T7, LIPID ####[facility] [address] [place] [address]Dr. John Bertrand Glucose [Mass/Vol] 140 mg/dL Critically high 74-106 [facility] Comment on above: Performed By: #### T SH, CMP, T7, LIPID ####[facility] [address] [place] [address]Dr. John Bertrand Potassium [Moles/Vol] 4.0 mmol/L Normal 3.5-5.1 [facility] Comment on above: Performed By: #### T SH, CMP, T7, LIPID ####[facility] [address] [place] [address]Dr. John Bertrand Protein [Mass/Vol] 7.3 g/dL Normal 6.4-8.2 [facility] Comment on above: Performed By: #### T SH, CMP, T7, LIPID ####[facility] [address] [place] [address]Dr. John Bertrand Sodium [Moles/Vol] 141 mmol/L Normal 136-145 [facility] Comment on above: Performed By: #### T SH, CMP, T7, LIPID ####[facility] [address] [place] [address]Dr. John Bertrand Urea nitrogen [Mass/Vol] 11.0 mg/dL Normal 7.0-18.0 [facility] Comment on above: Performed By: #### T SH, CMP, T7, LIPID ####[facility] [address] [place] [address]Dr. John Bertrand Urea nitrogen/Creatinine [Mass ratio] 9.1 mg/mg Normal [facility] Comment on above: Performed By: #### T SH, CMP, T7, LIPID ####[facility] [address] [place] [address]Dr. John Bertrand TSHon 01-14-2023 TSH 1.532 uIU/mL Normal 0.358-3.740 [facility] Comment on above: Performed By: #### T SH, CMP, T7, LIPID ####[facility] [address] [place] [address]Dr. John Bertrand Physician Referralon 023 Physician Referral [phone] [id number] Normal [facility] CT ABD/PELV W CONon 12-17-19 23 [...] by: GLORIA STRANGE Date: 2022-12-16 09:20 Normal [facility] ECHOCARDIO M/2D COMPLETEon 0 12-16-2022 ECHOCARDIO M/2D COMPLETE Patient: FLYNN ARNETT Exam Date: 12/16/2022 : 1965 Gender:M Ordering : DR LAUREN VELASQUEZ . Admission #: [id number] Family : Order #: [id number] CLICK HERE TO VIEW EXAM ECHOCARDIOGRAM REPORT [...] M.D. on 12/16/2022 at 12:11 Normal [facility]on SARS-CoV-2 (COVID-19) RNA THALIA+probe Ql (Unsp spec) Not detected Normal NOT DETECTED [facility] Comment on above: Result Comment: This test is not yet approved or cleared by the [place] FDA. When there are no FDA-approved or cleared tests available, and other criteria are met, FDA can make tests available under an emergency access mechanism called an Emergency Use Authorization (EUA). The EUA for this test is supported by the [employer] of Health and Human Service's (HHS's) declaration [...] SARS-CoV-2. Performed By: #### C VDTB #### [facility] [address] [place] [address] Dr. John Bertrand INFLUENZA A AND B AGon 03[facility]06 [facility] Normal [facility] Comment on above: Result Comment: Nega tive for Flu A protein angiten. Infection due to Flu A cannot be ruled out. Flu A angiten in the sample may be below the detection limit of the test. Performed By: #### I NFLUAB #### [facility] [address] [place] [address] Dr. [facility] Comment on above: Result Comment: Nega tive for Flu B protein antigen. Infection due to Flu B cannot be ruled out. Flu B antigen in the sample may be below the detection limit of the test. Performed By: #### I NFLUAB #### [facility] [address] [place] [address] Dr. John Bertrand INFLUENZA A AG Negative Normal NEGATIVE SEE COMMENT [facility] Comment on above: Performed By: #### I NFLUAB #### [facility] [address] [place] [address] Dr. John Bertrand INFLUENZA B AG Negative Normal NEGATIVE SEE COMMENT [facility] Comment on above: Performed By: #### I NFLUAB #### [facility] [address] [place] [address] Dr. John Bertrand INTERNAL CONTROLS Within Normal Limits Normal Wi thin Normal Limits [facility] Comment on above: Performed By: #### I NFLUAB #### [facility] [address] [place] [address] Dr. John Bertrand SYMPTOMATIC COVID-19 ANTIGEN on 03-06-2022 EUA Statement SEE BELOW Normal [facility] Comment on above: Result Comment: This test [...] sooner. Performed By: #### C VDAGS #### [facility] [address] [place] [address] Dr. John Bertrand SARS-CoV-2 (COVID-19) RNA THALIA+probe Ql (Unsp spec) Negative Normal NEGATIVE [facility] Comment on above: Performed By: #### C VDAGS #### [facility] [address] [place] [address] Dr. John Bertrand Vital Signs Date Time Vital Sign Value Performing Clinician Facility 05-10-2023 09:20-0400 Body height 175.26 cm Monica Jackson Other [facility] Other 05-10-2023 09:20-0400 Body mass index (BMI) [Ratio] 33.96 kg/m2 Monica Jackson Other [facility] Other 05-10-2023 09:20-0400 Body temperature 99 [degF] Monica Jackson Other [facility] Other 05-10-2023 09:20-0400 Body weight 104.33 kg Monica Jackson Other [facility] Other 05-10-2023 09:20-0400 Diastolic blood pressure 102 mm[Hg] Monica Jackson Other [facility] Other 05-10-2023 09:20-0400 Respiratory rate 18 /min Monica Jackson Other [facility] Other 05-10-2023 09:20-0400 SaO2% (BldA) [Mass fraction] 97 % Monica Jackson Other [facility] Other 05-10-2023 09:20-0400 Systolic blood pressure 141 mm[Hg] Monica Cardozamond Other [facility] Other 01-09-2023 15:29-0400 Blood Pressure Location Colt STUART [facility] 01-09-2023 15:29-0400 Diastolic blood pressure 98 mm[Hg] Colt STUART [facility] 01-09-2023 15:29-0400 Heart rate 80 /min Colt YADI [facility] [place] 01-09-2023 15:29-0400 Respiratory rate 16 /min Colt LOUISL [facility] [place] 01-09-2023 15:29-0400 Systolic blood pressure 146 mm[Hg] Colt LOUISL [facility] [place] Encounters Encounter Date Encounter Type Care Provider Facility Start: 12-06-2024 End: 12-06-2024 ambulatory [facility] Start: 10-27-2024 End: 10-27-2024 ambulatory [facility] Start: 04-15-2024 End: 04-15-2024 ambulatory TANK PIERRE [facility] Start: 05-10-2023 End: 05-10-2023 ambulatory Monica Jackson Other [facility] Other Start: 05-10-2023 Office outpatient ne w 20 minutes Monica Jackson [facility] Start: 02-12-2023 Encounter for other preprocedural examination DR ADONIS WEBSTER [facility] Start: 02-12-2023 Encounter for preprocedural laboratory examination DR ADONIS WEBSTER [facility] Start: 02-06-2023 End: 02-07-[address] LAUREN VELASQUEZ . Facility:[facility] Start: 02-06-2023 End: 02-07-2023 Encounter for preprocedural laboratory examination DR LAUREN VELASQUEZ . Facility:[facility] Start: 01-20-2023 Encounter for genera l adult medical examination without abnormal findings DR LAUREN VELASQUEZ . [facility] Start: 01-14-2023 End: 01-15-[address] LAUREN VELASQUEZ . Facility:[facility] Start: 01-14-2023 End: 01-15-2023 Encounter for general adult medical examination without abnormal findings DR LAUREN VELASQUEZ . Facility:[facility] Start: 01-09-2023 End: 01-10-2023 ambulatory Colt STUART [facility] Start: 01-09-2023 End: 01-09-2023 Patient encounter procedure Colt STUART [facility] Start: 12-16-2022 End: 12-17-[address] LAUREN VELASQUEZ . Facility: Start: 03-06-2022 End: 03-06-[address] LAUREN VELASQUEZ . Facility:[facility] Procedures Date Procedure Procedure Detail Performing Clinician Start: 01-14-2023 PSA screening MONICA SANTOS Comment on above: Performed By: #### P [facility] #### [facility] [address] [place] [address] Dr. John Bertrand Open reduction of fracture with internal fixation Colt MYERSEmily Comment on above: right arm Immunizations Immunization Date Immunization Notes Care Provider Fa cility NEGATED: Highlighted row has not occurred!01-09-2023 influenza virus vaccine, unspecified formulation Colt STUART [facility] NEGATED: Highlighted row has not occurred!01-09-2023 SARS-CoV-2 mRNA (tozinameran 5y-11y) vaccine Colt STUART [facility] Payers Date Payer Category Payer Unknown [id number] 1965 Unknown [id number] 2.16.8 [id number] 1965 Unknown [id number] 2.16.84 [id number] 1965 Unknown [id number] 2.16.84 [id number] 1965 Unknown [id number] 2.16.84 [id number] 1965 Unknown [id number] 2.16.84 [id number] 1965 Unknown [id number] 2.16.84 [id number] 1957 Self-pay [id number] 1957 Unknown [id number] 1957 Unknown [id number] Social History Date Type Detail Facility Start: 01-09-2023 Tobacco smoking status Never s moked tobacco (finding) [facility] [place] Tobacco smoking status Never Gener [facility] [place] Sex Assigned At Male [facility] Functional Status Date Assessment Result Facility 01-09-2023 Functional Status N/A [facility] Clinical Notes 12-18-2022 to 12-06-2024 Note Date & Type Note Facility 12-06-2024 Note [facility] CARDIOL OGY PROGRESS NOTE Patient here for follow up echo and lab results. He was unable to start Farxiga due to cost. says he was given RX for furosemide and he was only taking half of it due to frequent urination at work. Also says the person who did his echo told him to cut his heart pill in half because his HR was 47 during echo. So he's taking 5mg of lisinopril. Still having chest ache and SOB. Gets lightheaded when HR is lower. Review of Systems Cardiovascular: Positive for chest [...] regurgitation. He was switched from Farxiga to Jardiance due to cost. Had echo last month, [...] heart, apparently his murmur was more pronounced UPDATE 12/06/2024 She was well overall. Occasionally has lightheadedness if he stands up from a bending position. He has noncardiac chest ache that comes and goes. No orthopnea, no paroxysmal tunnel dyspnea, no lower extremity edema. He does not weigh himself daily, however he states he has not put on weight over the past several weeks. Visit Vitals Smoking Status Never No Known [...] taking: Reported on 04/15/2024) 180 tablet 3 dapagliflozin propanediol (Farxiga) 10 mg Take 1 tablet (10 mg) by mouth in the morning. 90 tablet 3 empagliflozin (Jardiance) 10 mg Take [...] taking: Reported on 06/30/2023) 120 capsule 0 HYDROcodone-acetaminophen ([place]) 5-325 mg tablet Take 1 tablet by mouth every 4 (four) hours if needed. lisinopril 10 mg tablet Take 1 tablet (10 mg) by mouth in the morning. 90 tablet 3 metFORMIN (Glucophage) 500 mg tablet Take 1 tablet (500 mg) by mouth with breakfast. Do not start before June 06, 2023. (Patient not taking: Reported on 06/30/2023) 30 tablet 0 pantoprazole (ProtoNix) 40 mg EC tablet Take 40 mg by mouth before breakfast. simvastatin (Zocor) 20 mg tablet Take 20 mg by mouth at bedtime. tiZANidine (Zanaflex) 4 mg tablet TAKE 2 TABLETS BY MOUTH EVERY EVENING NEEDED No current facility-administered medications on file prior to visit. Physical Exam: Constitutional: Appearance: Normal appearance. Without apparent distress HENT: Head: Normocephalic and atraumatic. Nose: Nose normal. Mouth/Throat: Mouth: Mucous membranes are (more content not included)... [facility] 10-27-2024 Note LENNIE ALEJANDRO CARDIOL LEILANI PROGRESS NOTE Patient here for 6 mo [...] regurgitation. He was switched from Farxiga to Hansdiroman due to cost. Had echo last month, [...] takes less th (more content not included)... [facility] 04-15-2024 Note Aortic dilitation re yulia stable Will repeat Echocardiogram in 1 year D/w pt importance of statin and HTN management and he voiced understanding [facility] 04-15-2024 Note Hypertension is curr ently controlled- he has stopped taking coreg, lasix and jardiance- He does monitor b/p at home and typically b/p remains < 130/80 [facility] 04-15-[address] [facility] 04-15-2024 Note S/P MV repair- ring Ring with normal doppler flows on TTE No concerning symptoms currently [facility] 04-15-2024 Note [facility] I currently euv olemic without exacerbation HE has stopped jardiance and lasix r/t lightheadedness/dizzyness and symptoms have resolved. He has lost weight since his last visit and overall doing well. Monitor daily weights, I&O, fluid restriction 1.5-2L/day, renal function and electrolytes- [facility] 04-15-2024 Note [facility] CARDIOLOGY PROGR ESS NOTE [...] regurgitation. He was switched from Farxiga to Jardiance due to cost. Had echo last month, [...] he stopped ze (more content not included)... [facility] 04-15-2024 Note Patient here for 6 m [...] All other systems reviewed and are negative. [facility] 05-10-2023 Evaluation note Encounter Date Diagnosis Assessment [...] tomorrow. You may also follow-up with an learning analyst if no improvement. Go to the ER for worsening symptoms or concerns May, Left ear impacted cerumen (ICD-10 - H61.22) Cerumen impaction home care material was printed May, Right ear impacted cerumen (ICD-10 - H61.21) [facility] Other 04-07-2023 NoteChief Complaint consultation for umbilical [...] to occur. Follow-up With When Contact Information Colt STUART MD, SUR Only if needed [address] [place] [id number] Additional Instructions: Problem List/Past Medical History Ongoing [...] Tobacco - Denies T (more content not included)...[facility] Comment on above:Result Comment: Electronically Signed By: Colt STUART MD\.br\Date and Time Signed: 01/09/23 15:56 [id number] Hospital Discharge instructions Follow Up Care 12/18/2022 13:20:00 With:Colt STUART MD, SUR Address: [address] [place] [phone] When: only if needed General Surgery orderbolt Evaluation + Plan note No data available for this section [facility] [place] History general Narrative - Reported* Type Description Date Medical History GERD Medical History HYPERLIPIDEMIA Hospitalization History KNEE CELLULITIS [facility] Other Progress note No data available for this section [facility] [place] Summary Purpose Family History No Family History Records FoundNo Family History Records FoundNo Family History Records Found Advance Directives No Advanced Directives Records FoundNo Advanced Directives Records FoundNo Advanced Directives Records Found Additional Source Comments Patient Care team informatio n (unrecognized section and content) Personnel Name: Lauren Velasquez MD Address: Address: [address] [place] [id number] (unrecognized sect ion and content) No Status Records FoundNo Status Records FoundNo Status Records Found INFORMATION SOURCE (unrecogn ized section and content) DATE CREATED AUTHOR 01/11/2023 [place] [facility] DATE CREATED AUTHOR AUTHOR'S ORGANIZ ATION 02/13/2023 [facility] DATE CREATED AUTHOR AUTHOR'S ORGANIZ ATION 12/07/2024 [facility] REASON FOR VISIT (unrecogniz ed section [...] BE BASED ON THE PRIMARY CLINICAL RECORDS. [employer] provides no warranty or guarantee of the accuracy or completeness of information in this document.
--- NOTE | 2025-01-15 17:38 | ECG_ITS ---
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 Measurements Intervals [address] Rate: 142 P: -40263 MO: -99089 QRS: 4 QRSD: 80 T: -30 QT: 292 QTc: 374 Interpretive Statements 28317 Atrial fibrillation with rapid ventricular response 2420 RSR (QR) in lead V1/V2, consistent with right ventricular conduction delay [address] depression, probably digitalis effect 9150 abnormal ECG Compared to ECG 11/30/2023 11:47:05 Atrial fibrillation has replaced sinus rhythm Electronically Signed On 01-16-2025 7:37:05 EDT by AMANDEEP MORAN M.D.
--- NOTE | 2025-01-15 17:41 | ECG_ITS ---
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 Measurements Intervals [place] Rate: 83 P: 270 VT: 184 QRS: -14 QRSD: 86 T: -27 QT: 350 QTc: 390 Interpretive Statements Ectopic atrial rhythm 2420 RSR (QR) in lead V1/V2, consistent with right ventricular conduction delay [address] depression 6220 Possible left atrial enlargement 9150 abnormal ECG Compared to ECG 01/15/2025 17:30:24 Atrial fibrillation no longer present ST (T wave) deviation still present Electronically Signed On 01-16-2025 7:38:06 EDT by AMANDEEP MORAN M.D.
[2025-01-15] MEDS: DILTIAZEM HCL 25 MG/5 ML VIAL 20 MG IV (17:45)
[2025-01-15] MEDS: 0.9 % SODIUM CHLORIDE 1,000 ML 1000 ML IV (17:50)
--- NOTE | 2025-01-15 17:57 | ECG_ITS ---
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 Measurements Intervals [place] Rate: 57 P: -39071 VT: -18649 QRS: 73 QRSD: 88 T: 73 QT: 412 QTc: 407 Interpretive Statements Junctional bradycardia 1470 with occasional supraventricular premature complexes [address] depression 9150 abnormal ECG Compared to ECG 01/15/2025 17:51:37 Ectopic atrial rhythm no longer present ST (T wave) deviation still present Electronically Signed On 01-16-2025 20:20:16 EDT by AMANDEEP MORAN M.D.
[2025-01-15 18:01] LABS: Basophils Percent Auto 0.4 % (0.2-2.0); Eosinophils Absolute Auto 0.3 10^3/uL (0.0-0.7); Eosinophils Percent Auto 2.4 % (0.9-7.0); Hematocrit 46.2 % (42.0-54.0); Hemoglobin 15.7 g/dL (14.0-18.0); Immature Granulocytes Abs Auto 0.03 10^3/uL (0.00-0.03); Immature Granulocytes Pct Auto 0.3 % (0.0-0.5); Lymphocytes Absolute Auto 3.5 10^3/uL (1.2-3.8); Lymphocytes Percent Auto 31.3 % (20.5-60.0); Mean Corpuscular Hemoglobin 27.8 pg (25.9-34.0); Mean Corpuscular Volume 81.9 fL (80.0-94.0); Mean Platelet Volume 10.5 fL (9.5-13.5); Monocytes Absolute Auto 0.7 10^3/uL (0.3-0.8); Monocytes Percent Auto 6.3 % (1.7-12.0); Neutrophils Absolute Auto 6.6 10^3/uL (1.4-6.5); Neutrophils Percent Auto 59.3 % (43.0-75.0); Platelet Count 241 10^3/uL (150-450); Red Blood Count 5.64 10^6/uL (4.70-6.10); Red Cell Distribution Width 14.3 % (11.0-15.0)
[2025-01-15] MEDS: ASPIRIN 81 MG TAB.CHEW 162 MG PO (18:02)
[2025-01-15 18:22] LABS: Alanine Aminotransferase 34 U/L (16-63); Albumin Globulin Ratio 1.3; Albumin Level 3.7 g/dL (3.4-5.0); Alkaline Phosphatase 64 U/L (46-116); Anion Gap 17.3; Aspartate Amino Transferase 24 U/L (15-37); BUN Creatinine Ratio 13.5; Bilirubin Total 0.6 mg/dL (0.2-1.0); Calcium 8.8 mg/dL (8.5-10.1); Carbon Dioxide 20.7 mmol/L (21.0-32.0); Chloride 105 mmol/L (98-107); Estimated GFR (African America 56 (>=60 mL/min/1.73m^2); Estimated GFR (Non-African Ame 46 (>=60 mL/min/1.73m^2); Globulin 2.8 g/dL; Glucose 147 mg/dL (74-106); Sodium 139 mmol/L (136-145); Total Protein 6.5 g/dL (6.4-8.2)
[2025-01-15 18:24] LABS: D Dimer 0.27 mg/L FEU (<=0.59); INR 1.01; Partial Thromboplastin Time 25.6 sec (22.3-36.2); Prothrombin Time 10.7 sec (9.0-11.6)
--- NOTE | 2025-01-15 18:27 | ED.GENADUL1 ---
[facility] HPI - General Adult General Chief complaint: Chest Pain Stated complaint: Chest Pain NUMBNESS Time Seen by Provider: 01/15/25 17:32 Source: patient Mode of arrival: Wheelchair History of Present Illness HPI narrative: Patient is a 59-year-old male who is presenting to the ER with chief complaint multiple symptoms that started around 9 to 10 AM this morning. Patient felt lightheaded, dizzy with no vertigo. Patient also had Chest tightness, and pressure. Mild shortness of breath. Mild weakness. Patient has intermittently felt his heart racing. Patient had mitral valve surgery approximately 2 years ago at [facility]. 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 Patient takes a baby aspirin a day. Patient has no recent traveling. Patient has been working harder yesterday and today, he has been cleaning out a barn. Patient has no thyroid history. Patient states he drinks a few beers a year, nondrinker. No illicit drug use, no cocaine use. Non-smoker. 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 is at bedside. Patient said initially that he has no history of irregular heartbeat or rhythm. Then after getting more information from [facility], states that patient did have a arrhythmia a day or 2 after his open heart surgery that resolved. Patient cannot recall what type of heart rhythm that was, A-fib or a flutter. All systems are negative except as noted/marked. All systems reviewed and otherwise negative. Nurses note and vital signs reviewed and patient is not hypoxic. General: The patient appears well and in no apparent distress. Patient is resting comfortably on cart. Patient is not toxic, lethargic, or listless Skin: Warm, dry, no pallor noted. There is no rash noted. No petechiae, purpura. Head: Normocephalic, atraumatic Eye: Normal conjunctiva, no drainage, EOMI. PERRL Ears, Nose, Mouth, and Throat: oral mucosa is moist. Nares patent. Mouth without vesicles. Cardiovascular: Irregular irregular Rate and Rhythm, no murmur, gallop, rub Respiratory: Patient is in no distress, no accessory muscle use, lungs are clear to auscultation, no wheezing, rales or rhonchi Back: non-tender, no CVA tenderness bilaterally to percussion. No CT LS midline pain GI: Soft, obese, no tenderness to palpation, no masses appreciated. No rebound, guarding, or rigidity noted. No distention Musculoskeletal: Patient has full range of motion of all of the extremities, no motor, sensory, or focal neurological deficits Neurological: A&O x4, normal speech Psychiatric: Cooperative Related Data Home Medications ?Medication ?Instructions ?Recorded ?Confirmed ezetimibe 10 mg tablet 10 mg PO DAILY 03/11/23 01/15/25 hydrocodone 5 mg-acetaminophen 325 1 tab PO Q6H PRN pain 03/11/23 01/15/25 mg tablet pantoprazole 40 mg tablet,delayed 40 mg PO DAILY 03/11/23 01/15/25 release simvastatin 20 mg tablet 20 mg PO DAILY 03/11/23 01/15/25 aspirin 81 mg tablet,delayed 81 mg PO DAILY 01/15/25 01/15/25 release (Adult Low Dose Aspirin) carvedilol 3.125 mg tablet 3.125 mg PO BID 01/15/25 01/15/25 dapagliflozin propanediol 10 mg 10 mg PO QAM 01/15/25 01/15/25 tablet (Farxiga) furosemide 20 mg tablet 10 mg PO DAILY 01/15/25 01/15/25 lisinopril 10 mg tablet 10 mg PO DAILY 01/15/25 01/15/25 Allergies Allergy/AdvReac Type Severity Reaction Status Date / Time No Known Drug Allergies Allergy Verified 03/11/23 10:52 Opioid HPI Opioid Management Most Recent Opioid Data: Last Pain Scale 3 01/15/25 18:48 01/15/25 Last ED Pain Assessment 01/15/25 18:48 PFSH PFSH Social History Smoking status: Never smoker Exam Constitutional Vital Signs, click to edit/add: Last Vital Signs Temp 98.0 F 01/15/25 17:23 Pulse 58 L 01/15/25 18:20 Resp 13 01/15/25 18:20 BP 114/80 01/15/25 18:15 Pulse Ox 97 01/15/25 18:20 O2 Del Method Room Air 01/15/25 18:08 Course Vital Signs Vital signs: Vital Signs Temperature 98.0 F 01/15/25 17:23 Pulse Rate 148 H 01/15/25 17:23 Respiratory Rate 22 H 01/15/25 17:23 Blood Pressure 158/131 H 01/15/25 17:23 Pulse Oximetry 98 01/15/25 17:23 Oxygen Delivery Method Room Air 01/15/25 17:23 Temperature 98.0 F 01/15/25 17:23 Pulse Rate 58 L 01/15/25 18:20 Respiratory Rate 13 01/15/25 18:20 Blood Pressure 114/80 01/15/25 18:15 Pulse Oximetry 97 01/15/25 18:20 Oxygen Delivery Method Room Air 01/15/25 18:08 Medical Decision Making MDM Narrative Medical decision making narrative: Patient seen and examined: IV, fluids, Cardizem, x-ray, labs, urine sample. Differential diagnosis includes but is not limited to: Atrial fibrillation, atrial flutter. Arrhythmia, electrolyte abnormality, SD, pneumothorax, pneumonia, dehydration Diagnostics and management: Patient will have laboratory studies Relevant laboratory interpretation: BUN/creatinine 21/1.5, troponin 295. 1845 repeat troponin will be drawn now Radiological studies: Please see the formal radiological report. Chest x-ray shows no acute cardiopulmonary disease, no infiltrate, no effusion. Reevaluation: After initial bolus, patient's heart rate decreased into the 80s. Patient's lightheaded, chest pain and tightness and palpitations did improve. Patient felt better. Shared decision making: I discussed with the patient the necessary laboratory findings and radiological findings. Social barriers to healthcare: There are no food insecurities, there is no issue with transportation, there are no insurance barriers. Disposition: I discussed with the patient new onset of A-fib with RVR. Patient stated the patient was in some type of arrhythmia after his open heart surgery 2 years ago at [facility] for mitral valve surgery. They cannot recall if it was A-fib or a flutter. Patient was initially given IV Cardizem 20 mg bolus, patient's heart rate initially went into the 80s, and then has maintained in the 50s, slow A-fib. Patient was given 2 baby aspirin, patient did take his baby aspirin earlier today. 0 patient will be transition to Dr. Lundy. He will follow-up on the second troponin, reevaluation, and admission and disposition. Critical care time 35 minutes exclusive from separate billable procedures that were performed. The following was considered in the determination of critical care but not limited to the level of medical decision making, intensive cardiac and/or respiratory monitoring, frequent vital sign monitoring, evaluation of laboratory studies, evaluation of radiographic studies, oxygen monitoring, and constant monitoring and speaking to family at bedside Lab Data Labs: Lab Results 01/15/25 01/15/25 Range/Units 17:35 18:20 WBC 11.0 (4.0-11.0) 10^3/uL RBC 5.64 (4.70-6.10) 10^6/uL Hgb 15.7 (14.0-18.0) g/dL Hct 46.2 (42.0-54.0) % MCV 81.9 (80.0-94.0) fL MCH 27.8 (25.9-34.0) pg MCHC 34.0 (29.9-35.2) g/dL RDW 14.3 (11.0-15.0) % Plt Count 241 (150-450) 10^3/uL MPV 10.5 (9.5-13.5) fL Neut % (Auto) 59.3 (43.0-75.0) % Lymph % (Auto) 31.3 (20.5-60.0) % [place] % (Auto) 6.3 (1.7-12.0) % Eos % (Auto) 2.4 (0.9-7.0) % Baso % (Auto) 0.4 (0.2-2.0) % Neut # (Auto) 6.6 H (1.4-6.5) 10^3/uL Lymph # (Auto) 3.5 (1.2-3.8) 10^3/uL [place] # (Auto) 0.7 (0.3-0.8) 10^3/uL Eos # (Auto) 0.3 (0.0-0.7) 10^3/uL Baso # (Auto) 0.0 (0.0-0.1) 10^3/uL Abs Immat Gran (auto) 0.03 (0.00-0.03) 10^3/uL Imm/Tot Granulo (auto) 0.3 (0.0-0.5) % PT 10.7 (9.0-11.6) sec INR 1.01 APTT 25.6 (22.3-36.2) sec D-Dimer 0.27 (<=0.59) mg/L FEU Sodium 139 (136-145) mmol/L Potassium 4.0 (3.5-5.1) mmol/L Chloride 105 (98-107) mmol/L Carbon Dioxide 20.7 L (21.0-32.0) mmol/L Anion Gap 17.3 BUN 21.0 H (7.0-18.0) mg/dL Creatinine 1.55 H (0.70-1.30) mg/dL Est GFR ( Amer) 56 L (>=60 mL/min/1.73m^2) Est GFR (Non-Af Amer) 46 L (>=60 mL/min/1.73m^2) BUN/Creatinine Ratio 13.5 Glucose 147 H (74-106) mg/dL Calcium 8.8 (8.5-10.1) mg/dL Total Bilirubin 0.6 (0.2-1.0) mg/dL AST 24 (15-37) U/L ALT 34 (16-63) U/L Alkaline Phosphatase 64 (46-116) U/L Troponin I High Sens 295.9 H* (4.0-76.1) pg/mL NT-Pro-B Natriuret Pep 543.0 (<=900.0) pg/mL Total Protein 6.5 (6.4-8.2) g/dL Albumin 3.7 (3.4-5.0) g/dL Globulin 2.8 g/dL Albumin/Globulin Ratio 1.3 TSH 2.626 (0.358-3.740) uIU/mL Urine Color Lt. yellow (YELLOW) Urine Clarity Clear (CLEAR) Urine pH 7.5 (5.0-9.0) Ur Specific [place] 1.010 (1.005-1.025) Urine Protein Negative (NEG/TRACE) mg/dL Urine Glucose (UA) >=1000 A (NEGATIVE) mg/dL Urine Ketones Negative (NEGATIVE) mg/dL Urine Occult Blood Negative (NEGATIVE) Urine Nitrite Negative (NEGATIVE) Urine Bilirubin Negative (NEGATIVE) Urine Urobilinogen 0.2 (0.2-1.0) EU/dL Ur Leukocyte Esterase Negative (NEGATIVE) Urine RBC 0-2 (0-2) #/HPF Urine WBC 0-2 A (NONE SEEN) #/HPF Ur Squamous Epith Cells None seen (NONE/RARE) #/LPF Urine Crystals None seen (None Seen) #/HPF Urine Bacteria None seen (NONE SEEN) #/HPF Urine Casts None seen (NONE SEEN) #/LPF Urine Mucus None seen (NONE SEEN) ECG Data Attestation: I personally reviewed and interpreted this ECG as follows: (EKG #1. Irregular irregular rhythm at 142 beats a minute. Normal axis deviation. Artifact noted. Nonspecific ST changes. A-fib with RVR. QTc of 374.) Interpretation: EKG #2. Irregular irregular rhythm at 83 beats a minute. Questionable P waves seen, normal axis deviation. QTc of 390. Heart rate has improved. No ST elevation. Nonspecific ST changes. EKG #3. Irregular irregular, most likely slow A-fib at 57 beats a minute. Normal axis deviation. No ST elevation, no acute ectopy. QTc of 407. Discharge Plan Discharge Patient Disposition: Still a Patient
[2025-01-15 18:29] LABS: Bilirubin Urine NEGATIVE (NEGATIVE); Blood Urine NEGATIVE (NEGATIVE); Clarity Urine CLEAR (CLEAR); Color Urine LT. YELLOW (YELLOW); Glucose Urine UA >=1000 mg/dL (NEGATIVE); Ketones Urine NEGATIVE (NEGATIVE); Leukocyte Esterase Urine NEGATIVE (NEGATIVE); Nitrite Urine NEGATIVE (NEGATIVE); Protein Urine NEGATIVE (NEG/TRACE); Urobilinogen Urine 0.2 EU/dL (0.2-1.0); pH Urine 7.5 (5.0-9.0)
[2025-01-15 18:35] LABS: Troponin I High Sensitivity 295.9 pg/mL (4.0-76.1)
[2025-01-15 18:36] LABS: Thyroid Stimulating Hormone 2.626 uIU/mL (0.358-3.740)
[2025-01-15 18:37] LABS: Bacteria Urine NONE SEEN #/HPF (NONE SEEN); Cast Seen? NONE SEEN #/LPF (NONE SEEN); Crystals Seen? None Seen #/HPF (None Seen); Mucus Urine NONE SEEN (NONE SEEN); RBC Urine 0-2 #/HPF (0-2); Squamous Epithelial Cell Urine NONE SEEN #/LPF (NONE/RARE); WBC Urine 0-2 #/HPF (NONE SEEN)
[2025-01-15 19:15] LABS: Troponin I High Sensitivity 317.2 pg/mL (4.0-76.1)
--- NOTE | 2025-01-15 20:09 | ED.GENADUL1 ---
HPI HPI - General Adult General Chief complaint: Chest Pain Stated complaint: Chest Pain NUMBNESS Time Seen by Provider: 01/15/25 17:32 Source: patient Mode of arrival: Wheelchair History of Present Illness HPI narrative: 59-year-old male presented to the emergency department and was initially seen by Dr. Guerrero and signed out to me after discussing the case with him thoroughly. Please see his full history and physical exam. Related Data Home Medications ?Medication ?Instructions ?Recorded ?Confirmed ezetimibe 10 mg tablet 10 mg PO DAILY 03/11/23 01/15/25 hydrocodone 5 mg-acetaminophen 325 1 tab PO Q6H PRN pain 03/11/23 01/15/25 mg tablet pantoprazole 40 mg tablet,delayed 40 mg PO DAILY 03/11/23 01/15/25 release simvastatin 20 mg tablet 20 mg PO DAILY 03/11/23 01/15/25 aspirin 81 mg tablet,delayed 81 mg PO DAILY 01/15/25 01/15/25 release (Adult Low Dose Aspirin) carvedilol 3.125 mg tablet 3.125 mg PO BID 01/15/25 01/15/25 dapagliflozin propanediol 10 mg 10 mg PO QAM 01/15/25 01/15/25 tablet (Farxiga) furosemide 20 mg tablet 10 mg PO DAILY 01/15/25 01/15/25 lisinopril 10 mg tablet 10 mg PO DAILY 01/15/25 01/15/25 Allergies Allergy/AdvReac Type Severity Reaction Status Date / Time No Known Drug Allergies Allergy Verified 03/11/23 10:52 Opioid HPI Opioid Management Most Recent Opioid Data: Last Pain Scale 3 01/15/25 18:48 01/15/25 Last ED Pain Assessment 01/15/25 18:48 PFSH PFSH Surgical History (Updated 01/15/25 @ 18:56 by Aníbal Yoon) History of heart valve repair ?Z98.890 - Other specified postprocedural states (ICD-10) History of open heart surgery ?Z98.890 - Other specified postprocedural states (ICD-10) Social History Smoking status: Never smoker Exam Constitutional Vital Signs, click to edit/add: Last Vital Signs Temp 98.0 F 01/15/25 17:23 Pulse 58 L 01/15/25 18:20 Resp 13 01/15/25 18:20 BP 114/80 01/15/25 18:15 Pulse Ox 97 01/15/25 18:20 O2 Del Method Room Air 01/15/25 18:08 Course Vital Signs Vital signs: Vital Signs Temperature 98.0 F 01/15/25 17:23 Pulse Rate 148 H 01/15/25 17:23 Respiratory Rate 22 H 01/15/25 17:23 Blood Pressure 158/131 H 01/15/25 17:23 Pulse Oximetry 98 01/15/25 17:23 Oxygen Delivery Method Room Air 01/15/25 17:23 Temperature 98.0 F 01/15/25 17:23 Pulse Rate 58 L 01/15/25 18:20 Respiratory Rate 13 01/15/25 18:20 Blood Pressure 114/80 01/15/25 18:15 Pulse Oximetry 97 01/15/25 18:20 Oxygen Delivery Method Room Air 01/15/25 18:08 Medical Decision Making MDM Narrative Medical decision making narrative: The patient's heart rate is in the upper 40s, lower 50s and he is likely in a junctional rhythm. It does not appear to be atrial fibrillation and there are no P waves. Initial troponin was 295 with repeat 317. I spoke to Dr. Lundy who suggested admission for observation here at this hospital. We will check serial troponins and observe him overnight. Treatment diagnosis and disposition were discussed with the patient. Differential Diagnosis Differential Diagnosis: Atrial fibrillation with RVR, atrial flutter Lab Data Lab results reviewed: Yes I reviewed the patient's lab results Labs: Lab Results 01/15/25 01/15/25 01/15/25 Range/Units 17:35 18:20 18:52 WBC 11.0 (4.0-11.0) 10^3/uL RBC 5.64 (4.70-6.10) 10^6/uL Hgb 15.7 (14.0-18.0) g/dL Hct 46.2 (42.0-54.0) % MCV 81.9 (80.0-94.0) fL MCH 27.8 (25.9-34.0) pg MCHC 34.0 (29.9-35.2) g/dL RDW 14.3 (11.0-15.0) % Plt Count 241 (150-450) 10^3/uL MPV 10.5 (9.5-13.5) fL Neut % (Auto) 59.3 (43.0-75.0) % Lymph % (Auto) 31.3 (20.5-60.0) % [place] % (Auto) 6.3 (1.7-12.0) % Eos % (Auto) 2.4 (0.9-7.0) % Baso % (Auto) 0.4 (0.2-2.0) % Neut # (Auto) 6.6 H (1.4-6.5) 10^3/uL Lymph # (Auto) 3.5 (1.2-3.8) 10^3/uL [place] # (Auto) 0.7 (0.3-0.8) 10^3/uL Eos # (Auto) 0.3 (0.0-0.7) 10^3/uL Baso # (Auto) 0.0 (0.0-0.1) 10^3/uL Abs Immat Gran (auto) 0.03 (0.00-0.03) 10^3/uL Imm/Tot Granulo (auto) 0.3 (0.0-0.5) % PT 10.7 (9.0-11.6) sec INR 1.01 APTT 25.6 (22.3-36.2) sec D-Dimer 0.27 (<=0.59) mg/L FEU Sodium 139 (136-145) mmol/L Potassium 4.0 (3.5-5.1) mmol/L Chloride 105 (98-107) mmol/L Carbon Dioxide 20.7 L (21.0-32.0) mmol/L Anion Gap 17.3 BUN 21.0 H (7.0-18.0) mg/dL Creatinine 1.55 H (0.70-1.30) mg/dL Est GFR ( Amer) 56 L (>=60 mL/min/1.73m^2) Est GFR (Non-Af Amer) 46 L (>=60 mL/min/1.73m^2) BUN/Creatinine Ratio 13.5 Glucose 147 H (74-106) mg/dL Calcium 8.8 (8.5-10.1) mg/dL Total Bilirubin 0.6 (0.2-1.0) mg/dL AST 24 (15-37) U/L ALT 34 (16-63) U/L Alkaline Phosphatase 64 (46-116) U/L Troponin I High Sens 295.9 H* 317.2 H* (4.0-76.1) pg/mL NT-Pro-B Natriuret Pep 543.0 (<=900.0) pg/mL Total Protein 6.5 (6.4-8.2) g/dL Albumin 3.7 (3.4-5.0) g/dL Globulin 2.8 g/dL Albumin/Globulin Ratio 1.3 TSH 2.626 (0.358-3.740) uIU/mL Urine Color Lt. yellow (YELLOW) Urine Clarity Clear (CLEAR) Urine pH 7.5 (5.0-9.0) Ur Specific [place] 1.010 (1.005-1.025) Urine Protein Negative (NEG/TRACE) mg/dL Urine Glucose (UA) >=1000 A (NEGATIVE) mg/dL Urine Ketones Negative (NEGATIVE) mg/dL Urine Occult Blood Negative (NEGATIVE) Urine Nitrite Negative (NEGATIVE) Urine Bilirubin Negative (NEGATIVE) Urine Urobilinogen 0.2 (0.2-1.0) EU/dL Ur Leukocyte Esterase Negative (NEGATIVE) Urine RBC 0-2 (0-2) #/HPF Urine WBC 0-2 A (NONE SEEN) #/HPF Ur Squamous Epith Cells None seen (NONE/RARE) #/LPF Urine Crystals None seen (None Seen) #/HPF Urine Bacteria None seen (NONE SEEN) #/HPF Urine Casts None seen (NONE SEEN) #/LPF Urine Mucus None seen (NONE SEEN) Discharge Plan Discharge Chief Complaint: Chest Pain Clinical Impression: Atrial fibrillation with RVR, Elevated troponin Patient Disposition: Admitted as Observation Time of Disposition Decision: 20:08 Condition: Fair
--- NOTE | 2025-01-15 22:26 | ECG_ITS ---
[facility] Test Date: 2025-01-15 Pat Name: FLYNN ARNETT Department: Room: - Gender: Male Supervisor Graphite: : 1965 Requested By: LAUREN RIOS Order Number: [id number] Reading MD: AMANDEEP MORAN M.D. Measurements Intervals [place] Rate: 44 P: -88869 [place]: -[address]172 QRS: 62 QRSD: 90 T: 77 QT: 498 QTc: 450 Interpretive Statements Junctional bradycardia 1470 with occasional supraventricular premature complexes abnormal ECG Compared to ECG 01/15/2025 18:13:59 ST (T wave) deviation no longer present Electronically Signed On 01-16-2025 20:22:03 EDT by AMANDEEP MORAN M.D.
[2025-01-15 23:46] LABS: Troponin I High Sensitivity 305.6 pg/mL (4.0-76.1)
[2025-01-16] VITALS (62 sets, daily range): BP systolic 94–139; BP diastolic 58–84; PULSE 26–72; TEMP 36.2–36.7; O2SAT 88–99; BMI 31.3
[2025-01-16] MEDS: HEPARIN SODIUM (PORCINE) 5,000 UNIT/ML VIAL 4000 UNIT SUBQ (00:05)
[2025-01-16] MEDS: HEPARIN SODIUM,PORCINE/D5W 25,000 UNIT/500 ML IV.SOLN 19.036 UNIT IV (00:32)
[2025-01-16] MEDS: 0.9 % SODIUM CHLORIDE 1,000 ML 100 ML IV ×2 (00:48→10:48)
[2025-01-16 01:03] LABS: Amphetamine Screen Urine NEGATIVE (NEGATIVE); Barbiturates Screen Urine NEGATIVE (NEGATIVE); Benzodiazepines Screen Urine NEGATIVE (NEGATIVE); Buprenorphine Screen Urine NEGATIVE (NEGATIVE); Cannabinoid Screen Urine NEGATIVE (NEGATIVE); Cocaine Screen Urine NEGATIVE (NEGATIVE); Methadone Screen Urine NEGATIVE (NEGATIVE); Methamphetamines Screen Urine NEGATIVE (NEGATIVE); Opiate Screen Urine NEGATIVE (NEGATIVE); Oxycodone Screen Urine NEGATIVE (NEGATIVE); Phencyclidine Screen Urine NEGATIVE (NEGATIVE); Tricyclic Antidepressant Urine NEGATIVE (NEGATIVE)
[2025-01-16] MEDS: ACETAMINOPHEN 325 MG TABLET 650 MG PO (02:57)
[2025-01-16] MEDS: HYDROCODONE/ACET 5-325 MG TABLET 1 TAB PO (04:13)
[2025-01-16 04:44] LABS: Troponin I High Sensitivity 186.7 pg/mL (4.0-76.1)
[2025-01-16 05:06] LABS: Basophils Percent Auto 0.6 % (0.2-2.0); Eosinophils Absolute Auto 0.3 10^3/uL (0.0-0.7); Eosinophils Percent Auto 4.1 % (0.9-7.0); Hematocrit 40.2 % (42.0-54.0); Hemoglobin 13.4 g/dL (14.0-18.0); Immature Granulocytes Abs Auto 0.02 10^3/uL (0.00-0.03); Immature Granulocytes Pct Auto 0.3 % (0.0-0.5); Lymphocytes Absolute Auto 2.9 10^3/uL (1.2-3.8); Mean Corpuscular HGB Conc 33.3 g/dL (29.9-35.2); Mean Corpuscular Hemoglobin 27.9 pg (25.9-34.0); Mean Corpuscular Volume 83.8 fL (80.0-94.0); Mean Platelet Volume 10.2 fL (9.5-13.5); Monocytes Absolute Auto 0.7 10^3/uL (0.3-0.8); Monocytes Percent Auto 9.7 % (1.7-12.0); Neutrophils Percent Auto 43.3 % (43.0-75.0); Platelet Count 185 10^3/uL (150-450); Red Cell Distribution Width 14.6 % (11.0-15.0); White Blood Count 6.9 10^3/uL (4.0-11.0)
[2025-01-16 05:23] LABS: Alanine Aminotransferase 31 U/L (16-63); Albumin Globulin Ratio 1.1; Albumin Level 2.9 g/dL (3.4-5.0); Alkaline Phosphatase 56 U/L (46-116); Anion Gap 13.4; Aspartate Amino Transferase 19 U/L (15-37); BUN Creatinine Ratio 13.6; Bilirubin Total 0.5 mg/dL (0.2-1.0); Calcium 8.1 mg/dL (8.5-10.1); Carbon Dioxide 25.2 mmol/L (21.0-32.0); Chloride 107 mmol/L (98-107); Estimated GFR (African America >60 (>=60 mL/min/1.73m^2); Estimated GFR (Non-African Ame 52 (>=60 mL/min/1.73m^2); Globulin 2.6 g/dL; Glucose 144 mg/dL (74-106); Magnesium 1.8 mg/dL (1.8-2.4); Potassium 3.6 mmol/L (3.5-5.1); Sodium 142 mmol/L (136-145); Total Protein 5.5 g/dL (6.4-8.2)
[2025-01-16 05:30] LABS: INR 1.03; Partial Thromboplastin Time 38.2 sec (22.3-36.2); Prothrombin Time 10.9 sec (9.0-11.6)
--- NOTE | 2025-01-16 06:43 | P.HP_ITS ---
HPI H&P: HPI History of Present Illness Chief complaint: Chest Pain Narrative: Patient presented to the emergency room with increasing dizziness and shortness of breath just going up steps, he is not that over the last month or 2 but worse in the last day, in ER found to be in atrial fibrillation with rapid ventricular response, troponin also elevated, case discussed with cardiology and felt it was likely related just to the tachycardia, plan was to admit here and consultation to cardiology When I saw the patient was still in the emergency room, resting company bed, no complaints, significantly bradycardic, but no symptoms Opioid HPI Opioid Management Most Recent Pain and Opioid Data: Last Pain Scale 4 01/16/25 04:13 01/16/25 Last ED Pain Assessment 01/15/25 18:48 Last MAR Pain Assessment 01/16/25 04:13 Ur Phencyclidine Scrn Negative (NEGATIVE) 01/15/25 18:20 01/03 12/27 Review of Systems ROS Status of ROS 10 or more systems reviewed and unremark able except as noted in history and below PFSH PFSH Surgical History (Updated 01/15/25 @ 18:56 by Aníbal Yoon) History of heart valve repair ?Z98.890 - Other specified postprocedural states (ICD-10) History of open heart surgery ?Z98.890 - Other specified postprocedural states (ICD-10) Social History Smoking status: Never smoker Meds Home Medications and Allergies Home Medications ?Medication ?Instructions ?Recorded ?Confirmed ?Type ezetimibe 10 mg tablet 10 mg PO DAILY 03/11/23 01/15/25 History hydrocodone 5 mg-acetaminophen 325 1 tab PO Q6H PRN pain 03/11/23 01/15/25 History mg tablet pantoprazole 40 mg tablet,delayed 40 mg PO DAILY 03/11/23 01/15/25 History release simvastatin 20 mg tablet 20 mg PO DAILY 03/11/23 01/15/25 History aspirin 81 mg tablet,delayed 81 mg PO DAILY 01/15/25 01/15/25 History release (Adult Low Dose Aspirin) carvedilol 3.125 mg tablet 3.125 mg PO BID 01/15/25 01/15/25 History dapagliflozin propanediol 10 mg 10 mg PO QAM 01/15/25 01/15/25 History tablet (Farxiga) furosemide 20 mg tablet 10 mg PO DAILY 01/15/25 01/15/25 History lisinopril 10 mg tablet 10 mg PO DAILY 01/15/25 01/15/25 History Allergies Allergy/AdvReac Type Severity Reaction Status Date / Time No Known Drug Allergies Allergy Verified 03/11/23 10:52 Exam Constitutional Vital Signs, click to edit/add: Last Vital Signs Temp 98.0 F 01/15/25 17:23 Pulse 50 L 01/16/25 06:00 Resp 14 01/16/25 06:00 BP 101/60 01/16/25 06:00 Pulse Ox 96 01/16/25 06:00 O2 Del Method Room Air 01/16/25 06:00 Documenting provider has reviewed patient's vital signs: yes Common normals: no apparent distress HENMT Common normals: normocephalic Respiratory Common normals: normal respiratory effort and no retractions Cardio Common normals: regular rate and regular rhythm Extremity Common normals: normal to inspection, full ROM and no clubbing, cyanosis or edema Results Labs Labs: Short CBC 01/15/25 01/16/25 Range/Units 17:35 05:00 WBC 11.0 6.9 (4.0-11.0) 10^3/uL Hgb 15.7 13.4 L (14.0-18.0) g/dL Hct 46.2 40.2 L (42.0-54.0) % Plt Count 241 185 (150-450) 10^3/uL BMP 01/15/25 01/16/25 17:35 05:00 Sodium 139 142 Potassium 4.0 3.6 Chloride 105 107 Carbon Dioxide 20.7 L 25.2 BUN 21.0 H 19.0 H Creatinine 1.55 H 1.40 H Glucose 147 H 144 H Calcium 8.8 8.1 L Liver Function 01/15/25 01/16/25 Range/Units 17:35 05:00 Total Bilirubin 0.6 0.5 (0.2-1.0) mg/dL AST 24 19 (15-37) U/L ALT 34 31 (16-63) U/L Alkaline Phosphatase 64 56 (46-116) U/L Albumin 3.7 2.9 L (3.4-5.0) g/dL Urine 01/15/25 Range/Units 18:20 Urine Color Lt. yellow (YELLOW) Urine Clarity Clear (CLEAR) Urine pH 7.5 (5.0-9.0) Ur Specific [place] 1.010 (1.005-1.025) Urine Protein Negative (NEG/TRACE) mg/dL Urine Glucose (UA) >=1000 A (NEGATIVE) mg/dL Assessment and Plan Assessment and Plan (1) Elevated troponin: (2) Atrial fibrillation with RVR: (3) BP (high blood pressure): (4) History of heart valve repair: (5) History of open heart surgery: Plan Admission findings: Tachycardia secondary to atrial fibrillation with rapid ventricular response with elevated troponins Acute NSTEMI secondary to acute onset of atrial fibrillation with rapid ventricular response,-echocardiogram pending, consult to cardiology, troponins trending down, maintain heparin and n.p.o. status in case patient is transferred for heart cath today Hypertension by history-monitor closely continue with home medications Valvular heart disease-check echocardiogram Low back pain-continue home medications Hypercholesterolemia continue with home medications GERD-continue with home medications Admission status: Patient with acute NSTEMI secondary to acute atrial fibrillation with rapid ventricular response, heart rate is improved and off Cardizem drip, with acute NSTEMI start patient as inpatient status, medically necessary treatment likely to span 2 midnights
--- NOTE | 2025-01-16 07:00 | ECG_ITS ---
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 Measurements Intervals [place] Rate: 50 P: 76 [place]: 278 QRS: 65 QRSD: 90 T: 96 QT: 482 QTc: 454 Interpretive Statements 1100 Sinus rhythm 2231 First degree AV block 4068 Nonspecific [place] abnormality 8304 Long QTc interval 9150 abnormal ECG Compared to ECG 01/15/2025 22:25:50 First degree AV block now present Electronically Signed On 01-16-2025 20:25:01 EDT by AMANDEEP MORAN M.D.
[2025-01-16 07:14] LABS: TSH W/ REFLEX FT4 2.861 uIU/mL (0.358-3.740)
--- NOTE | 2025-01-16 09:26 | ECG_ITS ---
[facility] Test Date: 2025-01-16 Pat Name: FLYNN ARNETT Department: Room: [facility] Gender: Male Driver Guide: : 1965 Requested By: LAUREN RIOS Order Number: [id number] Reading MD: AMANDEEP MORAN M.D. Measurements Intervals [place] Rate: 41 P: 150 RI: 216 QRS: 71 QRSD: 88 T: 84 QT: 530 QTc: 467 Interpretive Statements Sinus rhythm 2231 First degree AV block 4068 Nonspecific [place] abnormality 8304 Long QTc interval ARTIFACT IN LEAD(S) 9150 abnormal ECG Compared to ECG 01/16/2025 04:31:06 No significant changes Electronically Signed On 01-16-2025 20:26:15 EDT by AMANDEEP MORAN M.D.
--- NOTE | 2025-01-16 09:28 | ECG_ITS ---
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 Measurements Intervals [place] Rate: 44 P: -68011 [place]: -97381 QRS: 66 QRSD: 88 T: 79 QT: 482 QTc: 434 Interpretive Statements Atrial fibrillation with slow ventricular response 9150 abnormal ECG Compared to ECG 01/16/2025 09:23:21 Sinus rhythm no longer present Electronically Signed On 01-16-2025 20:32:25 EDT by AMANDEEP MORAN M.D.
--- OUTSIDE RECORDS SUMMARY | 2025-01-16 09:32 | XMS_ITS | CCD ---
Author Organization [facility] Care Team Providers Care Retail Sales Teammate Name Role Phone Lauren Velasquez Primary Care [...] Range Facility Office Visiton 12-06-2024 Follow-up visit [id number] Flynn Arnett 1965 M Date Provider Department Center 12/06/2024 JarrodADONIS GOLDSTEIN [facility] Family History Problem Relation Age of Onset No Known Problems Mother No Known Problems Father Family Status - Relation Status Age at Mother Father Level of Service:38591 [place] OFFICE/OUTPATIENT ESTABLISHED MOD MDM [address] [facility] Office Visiton 10-27-2024 Follow-up visit [id number] Flynn Arnett 1965 M Date Provider Department Center 10/27/2024 JarrodADONIS GOLDSTEINevue [facility] Family History Problem Relation Age of Onset No Known Problems Mother No Known Problems Father Family Status - Relation Status Age at Mother Father Level of Service:40240 [place] OFFICE/OUTPATIENT ESTABLISHED MOD MDM [address] [facility] Office Visiton 04-15-2024 Follow-up visit [id number] Flynn Arnett 1965 M Date Provider Department Center 04/15/2024 TANK BECKHAM [facility] Family History Problem Relation Age of Onset No Known Problems Mother No Known Problems Father Family Status - Relation Status Age at Mother Father Level of Service:07741 [place] OFFICE/OUTPATIENT ESTABLISHED MOD MDM [address] [facility] CBC AUTO DIFFon 02-06-2023 BASO # 0.0 103/ul Normal 0.0-0.1 [facility] Comment on above: Performed By: #### C BC #### [facility] [address] [place] [address] Dr. John Bertrand Basophils/100 WBC (Bld) 0.4 % Normal 0.2-2.0 [facility] Comment on above: Performed By: #### C BC #### [facility] [address] [place] [address] Dr. John Bertrand EO # 0.2 103/ul Normal 0.0-0.7 [facility] Comment on above: Performed By: #### C BC #### [facility] [address] [place] [address] Dr. John Bertrand Eosinophils/100 WBC (Bld) 3.1 % Normal 0.9-7.0 [facility] Comment on above: Performed By: #### C BC #### [facility] [address] [place] [address] Dr. John Bertrand Erythrocyte distribution width (RBC) [Ratio] 13.9 % Normal 11.0-15.0 [facility] Comment on above: Performed By: #### C BC #### [facility] [address] [place] [address] Dr. John Bertrand Hematocrit (Bld) [Volume fraction] 43.8 % Normal 42.0-54.0 [facility] Comment on above: Performed By: #### C BC #### [facility] [address] [place] [address] Dr. John Bertrand Hemoglobin (Bld) [Mass/Vol] 14.4 g/dL Normal 14.0-18.0 [facility] Comment on above: Performed By: #### C BC #### [facility] [address] [place] [address] Dr. John Bertrand IG # 0.01 10e3/ul Normal 0.00-0.03 [facility] Comment on above: Performed By: #### C BC #### [facility] [address] [place] [address] Dr. John Bertrand IG % 0.2 % Normal 0.0-0.5 [facility] Comment on above: Performed By: #### C BC #### [facility] [address] [place] [address] Dr. John Bertrand LYMPH # 2.3 103/ul Normal 1.2-3.8 [facility] Comment on above: Performed By: #### C BC #### [facility] [address] [place] [address] Dr. John Bertrand Lymphocytes/100 WBC (Bld) 41.1 % Normal 20.5-60.0 [facility] Comment on above: Performed By: #### C BC #### [facility] [address] [place] [address] Dr. John Bertrand MANUAL DIFF REQ NO Normal [facility] Comment on above: Performed By: #### C BC #### [facility] [address] [place] [address] Dr. John Bertrand MCH (RBC) [Entitic mass] 27.6 pg Normal 25.9-34.0 [facility] Comment on above: Performed By: #### C BC #### [facility] [address] [place] [address] Dr. John Bertrand MCHC (RBC) [Mass/Vol] 32.9 g/dL Normal 29.9-35.2 [facility] Comment on above: Performed By: #### C BC #### [facility] [address] [place] [address] Dr. John Bertrand MCV (RBC) [Entitic vol] 83.9 fL Normal 80.0-94.0 [facility] Comment on above: Performed By: #### C BC #### [facility] [address] [place] [address] Dr. John Bertrand MONO # 0.5 103/ul Normal 0.3-0.8 [facility] Comment on above: Performed By: #### C BC #### [facility] [address] [place] [address] Dr. John Bertrand Monocytes/100 WBC (Bld) 9.0 % Normal 1.7-12.0 [facility] Comment on above: Performed By: #### C BC #### [facility] [address] [place] [address] Dr. John Bertrand NEUT # 2.5 103/ul Normal 1.4-6.5 [facility] Comment on above: Performed By: #### C BC #### [facility] [address] [place] [address] Dr. John Bertrand Neutrophils/100 WBC (Bld) 46.2 % Normal 43.0-75.0 [facility] Comment on above: Performed By: #### C BC #### [facility] [address] [place] [address] Dr. John Bertrand Platelet mean volume (Bld) [Entitic vol] 9.6 fL Normal 9.5-13.5 [facility] Comment on above: Performed By: #### C BC #### [facility] [address] [place] [address] Dr. John Bertrand PLT 223 103/ul Normal 150-450 [facility] Comment on above: Performed By: #### C BC #### [facility] [address] [address] [address] John Bertrand RBC 5.22 106/ul Normal 4.70-6.10 [facility] Comment on above: Performed By: #### C BC #### [facility] [address] [address] [address] John Bertrand WBC 5.5 103/ul Normal 4.0-11.0 [facility] Comment on above: Performed By: #### C BC #### [facility] [address] [place] [address] Dr. John Bertrand PROF CHEM 8 (BAS METB)on Anion gap [Moles/Vol] 9.3 mmol/L Normal [facility] Comment on above: Performed By: #### B MP #### [facility] [address] [place] [address] Dr. John Bertrand Calcium [Mass/Vol] 8.7 mg/dL Normal 8.5-10.1 [facility] Comment on above: Performed By: #### B MP #### [facility] [address] [place] [address] Dr. John Bertrand Chloride [Moles/Vol] 105 mmol/L Normal 98-107 [facility] Comment on above: Performed By: #### B MP #### [facility] [address] [address] [address] John Bertrand CO2 [Moles/Vol] 27.6 mmol/L Normal 21.0-32.0 [facility] Comment on above: Performed By: #### B MP #### [facility] [address] [place] [address] Dr. John Bertrand Creatinine [Mass/Vol] 1.28 mg/dL Normal 0.70-1.30 [facility] Comment on above: Performed By: #### B MP #### [facility] [address] [address] [address] John Bertrand EGFR-AF GREEK >60 Normal >=60 [facility] Comment on above: Performed By: #### B MP #### [facility] [address] [address] [address] John Bertrand EGFR-NON AF GREEK 58 mL/min/1.73m2 Critically low >=60 [facility] Comment on above: Performed By: #### B MP #### [facility] [address] [address] [address] John Bertrand Glucose [Mass/Vol] 137 mg/dL Critically high 74-106 [facility] Comment on above: Performed By: #### B MP #### [facility] [address] [place] [address] Dr. John Bertrand Potassium [Moles/Vol] 3.9 mmol/L Normal 3.5-5.1 [facility] Comment on above: Performed By: #### B MP #### [facility] [address] [address] [address] John Bertrand Sodium [Moles/Vol] 138 mmol/L Normal 136-145 [facility] Comment on above: Performed By: #### B MP #### [facility] [address] [place] [address] Dr. John Bertrand Urea nitrogen [Mass/Vol] 16.0 mg/dL Normal 7.0-18.0 [facility] Comment on above: Performed By: #### B MP #### [facility] [address] [address] [address] John Bertrand Urea nitrogen/Creatinine [Mass ratio] 12.5 mg/mg Normal [facility] Comment on above: Performed By: #### B MP #### [facility] [address] [place] [address] Dr. John Bertrand CBC AUTO DIFFon 01-14-2023 BASO # 0.0 103/ul Normal 0.0-0.1 [facility] Comment on above: Performed By: #### C BC #### [facility] [address] [place] [address] Dr. John Bertrand Basophils/100 WBC (Bld) 0.6 % Normal 0.2-2.0 [facility] Comment on above: Performed By: #### C BC #### [facility] [address] [place] [address] Dr. John Bertrand EO # 0.1 103/ul Normal 0.0-0.7 [facility] Comment on above: Performed By: #### C BC #### [facility] [address] [place] [address] Dr. John Bertrand Eosinophils/100 WBC (Bld) 2.7 % Normal 0.9-7.0 [facility] Comment on above: Performed By: #### C BC #### [facility] [address] [place] [address] Dr. Jhon Bertrand Erythrocyte distribution width (RBC) [Ratio] 13.9 % Normal 11.0-15.0 [facility] Comment on above: Performed By: #### C BC #### [facility] [address] [place] [address] Dr. John Bertrand Hematocrit (Bld) [Volume fraction] 44.8 % Normal 42.0-54.0 [facility] Comment on above: Performed By: #### C BC #### [facility] [address] [place] [address] Dr. John Bertrand Hemoglobin (Bld) [Mass/Vol] 14.8 g/dL Normal 14.0-18.0 [facility] Comment on above: Performed By: #### C BC #### [facility] [address] [place] [address] Dr. John Bertrand IG # 0.01 10e3/ul Normal 0.00-0.03 [facility] Comment on above: Performed By: #### C BC #### [facility] [address] [place] [address] Dr. John Bertrand IG % 0.2 % Normal 0.0-0.5 [facility] Comment on above: Performed By: #### C BC #### [facility] [address] [place] [address] Dr. John Bertrand LYMPH # 1.9 103/ul Normal 1.2-3.8 [facility] Comment on above: Performed By: #### C BC #### [facility] [address] [place] [address] Dr. John Bertrand Lymphocytes/100 WBC (Bld) 37.0 % Normal 20.5-60.0 [facility] Comment on above: Performed By: #### C BC #### [facility] [address] [place] [address] Dr. John Bertrand MANUAL DIFF REQ NO Normal [facility] Comment on above: Performed By: #### C BC #### [facility] [address] [place] [address] Dr. John Bertrand MCH (RBC) [Entitic mass] 27.2 pg Normal 25.9-34.0 [facility] Comment on above: Performed By: #### C BC #### [facility] [address] [place] [address] Dr. John Bertrand MCHC (RBC) [Mass/Vol] 33.0 g/dL Normal 29.9-35.2 [facility] Comment on above: Performed By: #### C BC #### [facility] [address] [place] [address] Dr. John Bertrand MCV (RBC) [Entitic vol] 82.4 fL Normal 80.0-94.0 [facility] Comment on above: Performed By: #### C BC #### [facility] [address] [place] [address] Dr. John Bertrand MONO # 0.5 103/ul Normal 0.3-0.8 [facility] Comment on above: Performed By: #### C BC #### [facility] [address] [place] [address] Dr. John Bertrand Monocytes/100 WBC (Bld) 8.8 % Normal 1.7-12.0 [facility] Comment on above: Performed By: #### C BC #### [facility] [address] [address] [address] John Bertrand NEUT # 2.7 103/ul Normal 1.4-6.5 [facility] Comment on above: Performed By: #### C BC #### [facility] [address] [address] [address] John Berrtand Neutrophils/100 WBC (Bld) 50.7 % Normal 43.0-75.0 [facility] Comment on above: Performed By: #### C BC #### [facility] [address] [address] [address] John Bertrand Platelet mean volume (Bld) [Entitic vol] 9.5 fL Normal 9.5-13.5 [facility] Comment on above: Performed By: #### C BC #### [facility] [address] [address] [address] John Bertrand PLT 235 103/ul Normal 150-450 [facility] Comment on above: Performed By: #### C BC #### [facility] [address] [address] [address] John Bertrand RBC 5.44 106/ul Normal 4.70-6.10 [facility] Comment on above: Performed By: #### C BC #### [facility] [address] [address] [address] John Bertrand WBC 5.3 103/ul Normal 4.0-11.0 [facility] Comment on above: Performed By: #### C BC #### [facility] [address] [address] [address] John Bertrand FREE THYROXINE INDEX T7on FTI 2.16 Normal 1.30-4.50 [facility] Comment on above: Performed By: #### T SH, CMP, T7, LIPID ####[facility] [address] [address]Dr. John Bertrand T3U 36.0 % Normal 33.0-40.0 [facility] Comment on above: Performed By: #### T SH, CMP, T7, LIPID ####[facility] [address] [place], [place] [address]YdDr. John Bertrand T4 [Mass/Vol] 6.00 ug/dL Normal 4.50-12.10 [facility] Comment on above: Performed By: #### T SH, CMP, T7, LIPID ####[facility] [address] [place], [place] [address]CcAgnes Bertrand GLYCOHEMOGLOBIN A1Con 2022 ADA RECOMMENDATION SEE BELOW Normal [facility] Comment on above: Result Comment: ADA RECOMMENDED LIMIT 4.0 - 6.0 ADA THERAPEUTIC TARGET < 7.0 ACTION SUGGESTED > 7.0 Performed By: #### A 1C #### [facility] [address] [address] [address] John Bertrand Glucose [Mass/Vol] 154 mg/dL Normal [facility] Comment on above: Performed By: #### A 1C #### [facility] [address] [address] [address] John Bertrand HbA1c (Bld) [Mass fraction] 7.0 % Critically high 4.5-6.2 [facility] Comment on above: Performed By: #### A 1C #### [facility] [address] [address] [address] John Bertrand LIPID PROFILEon 01-14-2023 CHOL-HDL RATIO NORM SEE BELOW Normal [facility] Comment on above: Result Comment: 3.3 - 4.4 LOW RISK 4.4 - 7.1 AVERAGE RISK 7.1 - 11.0 MODERATE RISK >11.0 HIGH RISK Performed By: #### T SH, CMP, T7, LIPID ####[facility] [address] [place], [place] [address]GiAgnes Bertrand Cholesterol [Mass/Vol] 151 mg/dL Normal <=200 [facility] Comment on above: Performed By: #### T SH, CMP, T7, LIPID ####[facility] [address] [place], [place] [address]YoAgnes Bertrand Cholesterol in HDL [Mass/Vol] 36 mg/dL Critically low 40-60 [facility] Comment on above: Performed By: #### T SH, CMP, T7, LIPID ####[facility] [address] [id number]. John Bertrand Cholesterol in LDL [Mass/Vol] 101.4 mg/dL Normal [facility] Comment on above: Performed By: #### T SH, CMP, T7, LIPID ####[facility] [address] [id number]. John Bertrand Cholesterol.total/Ch olesterol in HDL [Mass ratio] 4.2 {ratio} Normal [facility] Comment on above: Performed By: #### T SH, CMP, T7, LIPID ####[facility] [address] [id number]. John Bertrand HDL NORMAL > or = 60 mg/dl - LO W CARDIOVASCULAR RISK <40 mg/dl - HIGH CARDIOVASCULAR RISK Normal [facility] Comment on above: Performed By: #### T SH, CMP, T7, LIPID ####[facility] [address] [address]Dr. John Bertrand LDL CALC NORMAL SEE BELOW Normal [facility] Comment on above: Result Comment: <100 mg/dl OPTIMAL 100 - 129 mg/dl NEAR OR ABOVE OPTIMAL 130 - 159 mg/dl BORDERLINE HIGH 160 - 189 mg/dl HIGH >190 mg/dl VERY HIGH Performed By: #### T SH, CMP, T7, LIPID ####[facility] [address] [id number]. John Bertrand Triglyceride [Mass/Vol] 68 mg/dL Normal <=150 [facility] Comment on above: Performed By: #### T SH, CMP, T7, LIPID ####[facility] [address] [id number]. John Bertrand VLDL CALC 13.6 mg/dL Normal [facility] Comment on above: Performed By: #### T SH, CMP, T7, LIPID ####[facility] [address] [id number]. John Bertrand PROF 14(COMP METB)on 023 Albumin [Mass/Vol] 3.8 g/dL Normal 3.4-5.0 [facility] Comment on above: Performed By: #### T SH, CMP, T7, LIPID ####[facility] [address] [address]Dr. John Bertrand Albumin/Globulin [Mass ratio] 1.1 {ratio} Normal [facility] Comment on above: Performed By: #### T SH, CMP, T7, LIPID ####[facility] [address] [address]Dr. John Bertrand ALP [Catalytic activity/Vol] 71 U/L Normal 46-116 [facility] Comment on above: Performed By: #### T SH, CMP, T7, LIPID ####[facility] [address] [address]Dr. John Bertrand ALT [Catalytic activity/Vol] 80 U/L Critically high 16-63 [facility] Comment on above: Performed By: #### T SH, CMP, T7, LIPID ####[facility] [address] [address]Dr. John Bertrand Anion gap [Moles/Vol] 11.2 mmol/L Normal [facility] Comment on above: Performed By: #### T SH, CMP, T7, LIPID ####[facility] [address] [place], [place] [address]Dr. John Bertrand AST [Catalytic activity/Vol] 39 U/L Critically high 15-37 [facility] Comment on above: Performed By: #### T SH, CMP, T7, LIPID ####[facility] [address] [place], [place] [address]Dr. John Bertrand Bilirubin [Mass/Vol] 0.4 mg/dL Normal 0.2-1.0 [facility] Comment on above: Performed By: #### T SH, CMP, T7, LIPID ####[facility] [address] [place], [place] [address]Dr. John Bertrand Calcium [Mass/Vol] 9.2 mg/dL Normal 8.5-10.1 [facility] Comment on above: Performed By: #### T SH, CMP, T7, LIPID ####[facility] [address] [place], [place] [address]Dr. John Bertrand Chloride [Moles/Vol] 107 mmol/L Normal 98-107 [facility] Comment on above: Performed By: #### T SH, CMP, T7, LIPID ####[facility] [address] [address]Dr. John Bertrand CO2 [Moles/Vol] 26.8 mmol/L Normal 21.0-32.0 [facility] Comment on above: Performed By: #### T SH, CMP, T7, LIPID ####[facility] [address] [id number]. John Bertrand Creatinine [Mass/Vol] 1.21 mg/dL Normal 0.70-1.30 [facility] Comment on above: Performed By: #### T SH, CMP, T7, LIPID ####[facility] [address] [address]Dr. John Bertrand EGFR-AF GREEK >60 Normal >=60 [facility] Comment on above: Performed By: #### T SH, CMP, T7, LIPID ####[facility] [address] [address]Dr. John Bertrand EGFR-NON AF GREEK >60 Normal >=60 [facility] Comment on above: Performed By: #### T SH, CMP, T7, LIPID ####[facility] [address] [address]Dr. John Bertrand Globulin (S) [Mass/Vol] 3.5 g/dL Normal [facility] Comment on above: Performed By: #### T SH, CMP, T7, LIPID ####[facility] [address] [address]Dr. John Bertrand Glucose [Mass/Vol] 140 mg/dL Critically high 74-106 [facility] Comment on above: Performed By: #### T SH, CMP, T7, LIPID ####[facility] [address] [address]Dr. John Bertrand Potassium [Moles/Vol] 4.0 mmol/L Normal 3.5-5.1 [facility] Comment on above: Performed By: #### T SH, CMP, T7, LIPID ####[facility] [address] [address]Dr. John Bertrand Protein [Mass/Vol] 7.3 g/dL Normal 6.4-8.2 [facility] Comment on above: Performed By: #### T SH, CMP, T7, LIPID ####[facility] [address] [address]Dr. John Bertrand Sodium [Moles/Vol] 141 mmol/L Normal 136-145 [facility] Comment on above: Performed By: #### T SH, CMP, T7, LIPID ####[facility] [address] [address]Dr. John Bertrand Urea nitrogen [Mass/Vol] 11.0 mg/dL Normal 7.0-18.0 [facility] Comment on above: Performed By: #### T SH, CMP, T7, LIPID ####[facility] [address] [address]Dr. John Bertrand Urea nitrogen/Creatinine [Mass ratio] 9.1 mg/mg Normal [facility] Comment on above: Performed By: #### T SH, CMP, T7, LIPID ####[facility] [address] [address]Dr. John Bertrand TSHon 01-14-2023 TSH 1.532 uIU/mL Normal 0.358-3.740 [facility] Comment on above: Performed By: #### T SH, CMP, T7, LIPID ####[facility] [address] [address]Dr. John Bertrand Physician Referralon 023 Physician Referral [phone] [id number] [facility] CT ABD/PELV W CONon 12-17-19 23 [...] by: GLORIA STRANGE Date: 2022-12-16 09:20 Normal [facility] ECHOCARDIO M/2D COMPLETEon 0 12-16-2022 ECHOCARDIO M/2D COMPLETE Patient: FLYNN ARNETT Exam Date: 12/16/2022 : 1965 Gender:M Ordering : DR LAUREN VELASQUEZ . Admission #: [id number] Family : Order #: [id number] CLICK HERE TO VIEW EXAM ECHOCARDIOGRAM REPORT [...] M.D. on 12/16/2022 at 12:11 Normal [facility] Covid-19 PCR ([facility])on SARS-CoV-2 (COVID-19) RNA THALIA+probe Ql (Unsp spec) Not detected Normal NOT DETECTED [facility] Comment on above: Result Comment: This test is not yet approved or cleared by the [place] FDA. When there are no FDA-approved or cleared tests available, and other criteria are met, FDA can make tests available under an emergency access mechanism called an Emergency Use Authorization (EUA). The EUA for this test is supported by the Manufacturing Development Engineer of Health and Human Service's (HHS's) declaration [...] SARS-CoV-2. Performed By: #### C VDTB #### [facility] [address] [place] [address] Dr. John Bertrand INFLUENZA A AND B AGon 03-06 [facility] SEE BEL[facility] Normal [facility] Comment on above: Result Comment: Nega tive for Flu A protein angiten. Infection due to Flu A cannot be ruled out. Flu A angiten in the sample may be below the detection limit of the test. Performed By: #### I NFLUAB #### [facility] [address] [place] [address] Dr. John Bertrand [facility] SEE BEL[facility] Normal [facility] Comment on above: Result Comment: Nega tive for Flu B protein antigen. Infection due to Flu B cannot be ruled out. Flu B antigen in the sample may be below the detection limit of the test. Performed By: #### I NFLUAB #### [facility] [address] [place] [address] Dr. John Bertrand INFLUENZA A AG Negative Normal NEGATIVE SEE COMMENT [facility] Comment on above: Performed By: #### I NFLUAB #### [facility] [address] [place] [address] Dr. John Bertrand INFLUENZA B AG Negative Normal NEGATIVE SEE COMMENT [facility] Comment on above: Performed By: #### I NFLUAB #### [facility] [address] [place] [address] Dr. John Bertrand INTERNAL CONTROLS Within Normal Limits Normal Wi thin Normal Limits [facility] Comment on above: Performed By: #### I NFLUAB #### [facility] [address] [place] [address] Dr. John Bertrand SYMPTOMATIC COVID-19 ANTIGEN on 03-06-2022 EUA Statement SEE BELOW Normal [facility] Comment on above: Result Comment: This [...] sooner. Performed By: #### C VDAGS #### [facility] [address] [place] [address] Dr. John Bertrand SARS-CoV-2 (COVID-19) RNA THALIA+probe Ql (Unsp spec) Negative Normal NEGATIVE [facility] Comment on above: Performed By: #### C VDAGS #### [facility] [address] [place] [address] Dr. John Bertrand Vital Signs Date Time Vital Sign Value Performing Clinician Facility 05-10-2023 09:20-0400 Body height 175.26 cm Monica Jackson Other [facility] Other 05-10-2023 09:20-0400 Body mass index (BMI) [Ratio] 33.96 kg/m2 Monica Jackson Other [facility] Other 05-10-2023 09:20-0400 Body temperature 99 [degF] Monica Jackson Other [facility] Other 05-10-2023 09:20-0400 Body weight 104.33 kg Monica Jackson Other [facility] Other 05-10-2023 09:20-0400 Diastolic blood pressure 102 mm[Hg] Monica Jackson Other [facility] Other 05-10-2023 09:20-0400 Respiratory rate 18 /min Monica Jackson Other [facility] Other 05-10-2023 09:20-0400 SaO2% (BldA) [Mass fraction] 97 % Monica Jackson Other [facility] Other 05-10-2023 09:20-0400 Systolic blood pressure 141 mm[Hg] Monica Cardozamond Other [facility] Other 01-09-2023 15:29-0400 Blood Pressure Location Colt STUART [facility] 01-09-2023 15:29-0400 Diastolic blood pressure 98 mm[Hg] Colt STUART [facility] 01-09-2023 15:29-0400 Heart rate 80 /min Colt YADI [facility] 01-09-2023 15:29-0400 Respiratory rate 16 /min Colt LOUISL [facility] 01-09-2023 15:29-0400 Systolic blood pressure 146 mm[Hg] Colt LOUISL [facility] Encounters Encounter Date Encounter Type Care Provider Facility Start: 12-06-2024 End: 12-06-2024 ambulatory [facility] Start: 10-27-2024 End: 10-27-2024 ambulatory [facility] Start: 04-15-2024 End: 04-15-[address] [facility] Start: 05-10-2023 End: 05-10-2023 ambulatory Monica Jackson Other [facility] Other Start: 05-10-2023 Office outpatient ne w 20 minutes Monica Jackson [facility] Start: 02-12-2023 Encounter for other preprocedural examination DR ADONIS WEBSTER [facility] Start: 02-12-2023 Encounter for preprocedural laboratory examination DR ADONIS WEBSTER [facility] Start: 02-06-2023 End: 02-07-[address] LAUREN VELASQUEZ . Facility:[facility] Start: 02-06-2023 End: 02-07-2023 Encounter for preprocedural laboratory examination DR LAUREN VELASQUEZ . Facility:[facility] Start: 01-20-2023 Encounter for genera l adult medical examination without abnormal findings DR LAUREN VELASQUEZ . [facility] Start: 01-14-2023 End: 01-15-[address] LAUREN VELASQUEZ . Facility:[facility] Start: 01-14-2023 End: 01-15-2023 Encounter for general adult medical examination without abnormal findings DR LAUREN VELASQUEZ . Facility:[facility] Start: 01-09-2023 End: 01-10-2023 ambulatory Colt STUART [facility] Start: 01-09-2023 End: 01-09-2023 Patient encounter procedure Colt STUART [facility] Start: 12-16-2022 End: 12-17-[address] LAUREN VELASQUEZ . Facility: Start: 03-06-2022 End: 03-06-[address] LAUREN VELASQUEZ . Facility:[facility] Procedures Date Procedure Procedure Detail Performing Clinician Start: 01-14-2023 PSA screening MONICA SANTOS Comment on above: Performed By: #### P [facility] #### [facility] [address] [place] [address] Dr. John Bertrand Open reduction of fracture with internal fixation Colt MYERSEmily Comment on above: right arm Immunizations Immunization Date Immunization Notes Care Provider Fa cility NEGATED: Highlighted row has not occurred!01-09-2023 influenza virus vaccine, unspecified formulation Colt STUART [facility] NEGATED: Highlighted row has not occurred!01-09-2023 SARS-CoV-2 mRNA (tozinameran 5y-11y) vaccine Colt STUART [facility] Payers Date Payer Category Payer Unknown [id number] 1965 Unknown [id number] 2.16.8 [id number] 1965 Unknown [id number] 2.16.84 [id number] 1965 Unknown [id number] 2.16.84 [id number] 1965 Unknown [id number] 2.16.84 [id number] 1965 Unknown [id number] 2.16.84 [id number] 1965 Unknown [id number] 2.16.84 [id number] 1957 Self-pay [id number] 1957 Unknown [id number] 1957 Unknown [id number] Social History Date Type Detail Facility Start: 01-09-2023 Tobacco smoking status Never s moked tobacco (finding) [facility] Tobacco smoking status Never [facility] Sex Assigned At Male [facility] Functional Status Date Assessment Result Facility 01-09-2023 Functional Status N/A [facility] Clinical Notes 12-18-2022 to 12-06-2024 Note Date & Type Note Facility 12-06-2024 Note [facility] CARDIOL OGY PROGRESS NOTE Patient here for [...] Reported on 06/30/2023) 120 capsule 0 HYDROcodone-acetaminophen ([place]) 5-325 mg tablet Take 1 tablet by [...] Mucous membranes are (more content not included)... [facility] 10-27-2024 Note LENNIE ALEJANDRO CARDIOL LEILANI PROGRESS [...] takes less th (more content not included)... [facility] 04-15-2024 Note Aortic dilitation re yulia stable Will repeat Echocardiogram in 1 year D/w pt importance of statin and HTN management and he voiced understanding [facility] 04-15-2024 Note Hypertension is curr ently controlled- he has stopped taking coreg, lasix and jardiance- He does monitor b/p at home and typically b/p remains < 130/80 [facility] 04-15-2024 Note stable [facility] 04-15-2024 Note S/P MV repair- ring Ring with normal doppler flows on TTE No concerning symptoms currently [facility] 04-15-2024 Note [facility] I currently euv olemic without exacerbation HE has stopped jardiance and lasix r/t lightheadedness/dizzyness and symptoms have resolved. He has lost weight since his last visit and overall doing well. Monitor daily weights, I&O, fluid restriction 1.5-2L/day, renal function and electrolytes- [facility] 04-15-2024 Note [facility]TP CARDIOLOGY PROGR ESS NOTE [...] he stopped ze (more content not included)... [facility] 04-15-2024 Note Patient here for 6 m [...] All other systems reviewed and are negative. [facility] 05-10-2023 Evaluation note Encounter Date Diagnosis Assessment [...] tomorrow. You may also follow-up with an earth science technical officer if no improvement. Go to the ER for worsening symptoms or concerns May, Left ear impacted cerumen (ICD-10 - H61.22) Cerumen impaction home care material was printed May, Right ear impacted cerumen (ICD-10 - H61.21) [facility] Other 04-07-2023 NoteChief Complaint consultation for umbilical [...] Colt STUART MD, SUR Only if needed [address] [place] [id number]- Additional Instructions: Problem List/Past Medical History Ongoing [...] Tobacco - Denies T (more content not included)...[facility] Comment on above:Result Comment: Electronically Signed By: Colt STUART MD\.br\Date and Time Signed: 01/09/23 15:56 [id number] Hospital Discharge instructions Follow Up Care 12/18/2022 13:20:00 With:Colt STUART MD, SUR Address: [address] [place] [id number] When: only if needed General Surgery [facility] Evaluation + Plan note No data available for this section [facility] History general Narrative - Reported* Type Description Date Medical History GERD Medical History HYPERLIPIDEMIA Hospitalization History KNEE CELLULITIS [facility] Other Progress note No data available for this section [facility] Summary Purpose Family History No Family History Records FoundNo Family History Records FoundNo Family History Records Found Advance Directives No Advanced Directives Records FoundNo Advanced Directives Records FoundNo Advanced Directives Records Found Additional Source Comments Patient Care team informatio n (unrecognized section and content) Personnel Name: Lauren Velasquez MD Address: Address: [address] [place] [id number] (unrecognized sect ion and content) No Status Records FoundNo Status Records FoundNo Status Records Found INFORMATION SOURCE (unrecogn ized section and content) DATE CREATED AUTHOR 01/11/2023 [facility] DATE CREATED AUTHOR AUTHOR'S ORGANIZ ATION 02/13/2023 [facility] DATE CREATED AUTHOR AUTHOR'S ORGANIZ ATION 12/07/2024 [facility] REASON FOR VISIT (unrecogniz ed section [...] BE BASED ON THE PRIMARY CLINICAL RECORDS. [employer] provides no warranty or guarantee of the accuracy or completeness of information in this document.
[2025-01-16 09:43] LABS: Troponin I High Sensitivity 142.3 pg/mL (4.0-76.1)
[2025-01-16] MEDS: NITROGLYCERIN 0.4 MG BOTTLE SL (12:47)
--- NOTE | 2025-01-16 13:05 | P.CACN_ITS ---
History of Present Illness History of Present Illness Consult date: 01/16/25 Requesting physician: Giovanni Velasquez Chief complaint: bradycardia Narrative: 59-year-old male with prior history of mitral valve repair and left atrial appendage clip, heart failure with preserved ejection fraction, hypertension, hyperlipidemia, diabetes mellitus. He presented yesterday with palpitation associated with chest tightness and he was found to be A-fib with RVR. He was given a dose of Cardizem IV 10 mg and since then he has been going to leann arrhythmia. Mostly junctional rhythm with occasional break into sinus rhythm. Also second-degree AV block was reported. He feels chest discomfort when he is significantly bradycardic. Heart rate has been going down as low as 25 and 50s. Blood pressure has been stable in the 110-120. He denies dizziness. Prior to admission the patient denies chest pain or shortness of breath at rest or with exertion. Denies orthopnea or paroxysmal nocturnal dyspnea or syncope or legs edema. Review of Systems ROS Narrative All systems were reviewed and they were negative except the positive findings noted above in the history [facility] Medical History (Updated 01/16/25 @ 13:14 by Jasmeet Grant MD) High cholesterol ?E78.00 - Pure hypercholesterolemia, unspecified (ICD-10) Diabetes ?E11.9 - Type 2 diabetes mellitus without complications (ICD-10) Surgical History History of heart valve repair ?Z98.890 - Other specified postprocedural states (ICD-10) History of open heart surgery ?Z98.890 - Other specified postprocedural states (ICD-10) Family History Mother Family history of cancer Father Family history of hypertension Social History (Updated 01/16/25 @ 09:36 by Claudia Alfaro RN) Within the past year, how often did you have a drink containing alcohol: never Within the past year, how often did you have six or more drinks on one occasion: never Score interpretation: A score less than 4 is consistent with normal alcohol consumption. Smoking status: Never smoker Second hand tobacco smoke exposure: No Known occupational exposures/hazards: No Highest level of school completed/degree received: 12th grade, no diploma Little interest or pleasure in doing things: not at all Feeling down, depressed, or hopeless: not at all Meds Home Medications and Allergies Home Medications ?Medication ?Instructions ?Recorded ?Confirmed ?Type ezetimibe 10 mg tablet 10 mg PO DAILY 03/11/23 01/15/25 History hydrocodone 5 mg-acetaminophen 325 1 tab PO Q6H PRN pain 03/11/23 01/15/25 History mg tablet pantoprazole 40 mg tablet,delayed 40 mg PO DAILY 03/11/23 01/15/25 History release simvastatin 20 mg tablet 20 mg PO DAILY 03/11/23 01/15/25 History aspirin 81 mg tablet,delayed 81 mg PO DAILY 01/15/25 01/15/25 History release (Adult Low Dose Aspirin) carvedilol 3.125 mg tablet 3.125 mg PO BID 01/15/25 01/15/25 History dapagliflozin propanediol 10 mg 10 mg PO QAM 01/15/25 01/15/25 History tablet (Farxiga) furosemide 20 mg tablet 10 mg PO DAILY 01/15/25 01/15/25 History lisinopril 10 mg tablet 10 mg PO DAILY 01/15/25 01/15/25 History Allergies Allergy/AdvReac Type Severity Reaction Status Date / Time No Known Drug Allergies Allergy Verified 03/11/23 10:52 Exam Narrative Exam Narrative: He is alert, oriented, he appears anxious next HEENT within normal limits Neck supple normal range of motion no lymphadenopathies, thyroid is normal, jugular venous pressure is normal Lungs clear to auscultation without rales or rhonchi or wheezes Cardiovascular system regular, bradycardic, normal S1 and S2 and no murmur Abdomen soft benign organomegaly or tenderness Extremities no edema or cyanosis or clubbing Neurological examination grossly normal Constitutional Vital Signs, click to edit/add: Last Vital Signs Temp 97.2 F L 01/16/25 11:58 Pulse 49 L 01/16/25 13:00 Resp 18 01/16/25 11:58 BP 120/68 01/16/25 11:58 Pulse Ox 96 01/16/25 11:58 O2 Del Method Room Air 01/16/25 11:58 Results Labs and Meds Lab results: Cardiac Enzymes 01/15/25 01/16/25 Range/Units 17:35 05:00 AST 24 19 (15-37) U/L Coagulation 01/15/25 01/16/25 Range/Units 17:35 05:00 PT 10.7 10.9 (9.0-11.6) sec APTT 25.6 38.2 H (22.3-36.2) sec CBC 01/15/25 01/16/25 Range/Units 17:35 05:00 WBC 11.0 6.9 (4.0-11.0) 10^3/uL RBC 5.64 4.80 (4.70-6.10) 10^6/uL Hgb 15.7 13.4 L (14.0-18.0) g/dL Hct 46.2 40.2 L (42.0-54.0) % Plt Count 241 185 (150-450) 10^3/uL Neut # (Auto) 6.6 H 3.0 (1.4-6.5) 10^3/uL Lymph # (Auto) 3.5 2.9 (1.2-3.8) 10^3/uL [place] # (Auto) 0.7 0.7 (0.3-0.8) 10^3/uL Eos # (Auto) 0.3 0.3 (0.0-0.7) 10^3/uL Baso # (Auto) 0.0 0.0 (0.0-0.1) 10^3/uL Comprehensive Metabolic Panel 01/15/25 01/16/25 Range/Units 17:35 05:00 Sodium 139 142 (136-145) mmol/L Potassium 4.0 3.6 (3.5-5.1) mmol/L Chloride 105 107 (98-107) mmol/L Carbon Dioxide 20.7 L 25.2 (21.0-32.0) mmol/L BUN 21.0 H 19.0 H (7.0-18.0) mg/dL Creatinine 1.55 H 1.40 H (0.70-1.30) mg/dL Glucose 147 H 144 H (74-106) mg/dL Calcium 8.8 8.1 L (8.5-10.1) mg/dL AST 24 19 (15-37) U/L ALT 34 31 (16-63) U/L Alkaline Phosphatase 64 56 (46-116) U/L Total Protein 6.5 5.5 L (6.4-8.2) g/dL Albumin 3.7 2.9 L (3.4-5.0) g/dL Intake and Output 01/15/25 01/16/25 01/16/25 23:59 07:59 15:59 Intake Total 1000 / 1126.589 126.589 / 0502.063 1332 / 1000 Output Total 900 / 900 Balance 1000 / 1126.589 126.589 / 1126.589 100 / 100 Intake: IV 1000 / 1126.589 126.589 / 2811.975 5171 / 1000 0.9 % Sodium Chloride 1,000 ml 1000 / 1000 1000 / 1000 @ 100 mls/hr IV .Q10H [facility] Rx#: [id number] Heparin Sodium,Porcine/D5w 25, 126.589 / 126.589 000 unit In 500 ml @ 11.78 UNIT /KG/HR 19.036 mls/hr IV CONT [facility] Rx#:[id number] Output: Urine 900 / 900 Other: Weight 96.162 kg 96.162 kg Patient Weight 01/17/25 07:59 Weight 96.162 kg echo 04/08/2024 Normal left ventricle size and systolic function, ejection fraction 55 to 60% Normal right ventricular size and systolic function Other to severe biatrial dilatation Mitral valve status post ring repair with normal Doppler flows, trivial mitral rotation Mildly dilated ascending aorta and aortic arch Normal right-sided pressures Echo November 2024 Normal left ventricle solid function ejection fraction 60 to 65% Normal right ventricular size and systolic function Moderate left ventricular hypertrophy Severely enlarged left atrium and mildly enlarged right atrium Evidence of prior mitral valve repair and ring, mild to moderate mitral regurgitation Mild aortic regurgitation Aortic ascending is mildly dilated Assessment and Plan Assessment and Plan (1) Bradycardia: Assessment and Plan: Junctional rhythm associated with symptoms of chest discomfort (2) Tachycardia-bradycardia syndrome: Assessment and Plan: Patient presented with A-fib with RVR and now he is having bradycardia mainly junctional rhythm (3) Atrial fibrillation with RVR: (4) Chest pain: Assessment and Plan: Most likely due to bradycardia. He has mild elevation of troponin. Normal coronary arteries on cardiac catheterization in February 2023 (5) Elevated troponin: Assessment and Plan: Most likely due to combination of bradycardia and chronic kidney disease. I think patient chest pain is due to bradycardia. He had normal coronary arteries on cardiac catheterization February 2023 (6) History of heart valve repair: Assessment and Plan: Mitral valve repair with annuloplasty and left atrial appendage clip. Mild to moderate mitral rotation noted on most recent echo in November 2024 (7) BP (high blood pressure): (8) Creatinine elevation: Plan Continue heparin IV infusion for A-fib I think that patient needs permanent pacemaker. Therefore I will transfer him to [facility]. I called the ICU unit and he is admitted. Although the patient blood pressure is stable however I will start him on dopamine 5 mcg/kg/min to help with elevating his heart rate till he arrives to [facility]. Keep n.p.o. He is not receiving any of his medications. echo when he arrives to [facility]
[2025-01-16] MEDS: DOPAMINE HCL IN DEXTROSE 18.03 MG IV (13:07)
[2025-01-16 13:23] LABS: PTT Heparin Monitor 36.5 sec (43.5-61.5)
[2025-01-16 13:24] LABS: Troponin I High Sensitivity 96.2 pg/mL (4.0-76.1)
--- NOTE | 2025-01-16 13:32 | PC.NURSE ---
[facility] [employer] to bedside. bedside report completed. Patient care completed and transfered to flight crew. Pt transfered to transport stretcher. Pt tolerated well. Pt prepped for transfer to [facility].
== END 2025-01-16 13:43 | disposition short-term general hospital (02) ==
LOC: ER 20:15 → MS 01-16 09:10
PROVIDERS: Emergency Medicine; Registered Nurse; Admitting Provider Family Medicine; Emergency Provider Emergency Medicine; PCP Family Medicine; Visit Provider Family Medicine
DX: I21.4 Non-ST elevation (NSTEMI) myocardial infarction (principal); I48.91 Unspecified atrial fibrillation; R79.89 Other specified abnormal findings of blood chemistry; Z79.82 Long term (current) use of aspirin; R07.9 Chest pain, unspecified; R00.1 Bradycardia, unspecified; R06.02 Shortness of breath; R42 Dizziness and giddiness; M54.50 Low back pain, unspecified; E78.00 Pure hypercholesterolemia, unspecified; I38 Endocarditis, valve unspecified; K21.9 Gastro-esophageal reflux disease without esophagitis; E11.9 Type 2 diabetes mellitus without complications; I50.9 Heart failure, unspecified; I11.0 Hypertensive heart disease with heart failure; I44.1 Atrioventricular block, second degree
CPT/HCPCS: 36415; 71045; 80053; 80307; 81001; 83735; 83880; 84443; 84484; 85025; 85378; 85610; 85730; 93005; 94761; 96361; 96374; 96375; 99285; G0378; J1265; J1644

== ENCOUNTER 2025-02-09 15:07 | Emergency (ER) | payer BC, SELFPAY ==
[2025-02-09] VITALS (20 sets, daily range): BP systolic 105–140; BP diastolic 70–91; PULSE 95–113; TEMP 36.4; O2SAT 92–98; BMI 32.5
--- NOTE | 2025-02-09 15:32 | ECG_ITS ---
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 Measurements Intervals [place] Rate: 97 P: 255 UT: 224 QRS: 79 QRSD: 82 T: 42 QT: 354 QTc: 409 Interpretive Statements Atrial flutter with 3:1 AV conduction [address] depression 4664 Twave abnormality, possible inferior ischemia 9150 abnormal ECG Compared to ECG 01/16/2025 12:24:24 Atrial flutter has replaced atrial fibrillation Electronically Signed On 02-09-2025 21:35:12 EDT by AMANDEEP MORAN M.D.
--- NOTE | 2025-02-09 15:33 | ED.GENADUL1 ---
HPI HPI - General Adult General Chief complaint: Chest Pain Stated complaint: CP-RECENT PACEMAKER INSERTION Time Seen by Provider: 02/09/25 15:11 History of Present Illness HPI narrative: 59-year-old male presents for shortness of breath. He has had it since 1:00 in the morning when it woke him up. 3 weeks ago he had a pacemaker placed and several years ago he had mitral valve repair. He states that his shortness of breath is not present when he sits still but if he gets up and walks it becomes quite severe and then sometimes the left upper part of his chest hurts as well. He reports he has been taking all of his medications. Sometimes today his heart has been racing particular if he exerts. Related Data Home Medications ?Medication ?Instructions ?Recorded ?Confirmed ezetimibe 10 mg tablet 10 mg PO DAILY 03/11/23 02/09/25 hydrocodone 5 mg-acetaminophen 325 1 tab PO Q6H PRN pain 03/11/23 02/09/25 mg tablet pantoprazole 40 mg tablet,delayed 40 mg PO DAILY 03/11/23 02/09/25 release carvedilol 3.125 mg tablet 3.125 mg PO BID 01/15/25 02/09/25 dapagliflozin propanediol 10 mg 10 mg PO QAM 01/15/25 02/09/25 tablet (Farxiga) furosemide 20 mg tablet 10 mg PO DAILY 01/15/25 02/09/25 lisinopril 10 mg tablet 10 mg PO DAILY 01/15/25 02/09/25 apixaban 5 mg tablet (Eliquis) 5 mg PO BID 02/09/25 02/09/25 aspirin 81 mg capsule 81 mg PO DAILY 02/09/25 02/09/25 Allergies Allergy/AdvReac Type Severity Reaction Status Date / Time No Known Drug Allergies Allergy Verified 02/09/25 15:46 Opioid HPI Opioid Management Most Recent Opioid Data: Last Pain Scale 5 Today, 15:35 Last ORT Total Score 0 01/16/25, 09:24 Last ORT Risk Category Low Risk 01/16/25, 09:24 Ur Phencyclidine Scrn, (NEGATIVE) Negative 01/15/25, 18:20 Review of Systems ROS Narrative A ten point review of systems is negative except as noted above. [facility] Medical History (Updated 05/08/25 @ 17:59 by Jose Armando Rider MD) Elevated troponin ?R79.89 - Other specified abnormal findings of blood chemistry (ICD-10) Atrial fibrillation with RVR ?I48.91 - Unspecified atrial fibrillation (ICD-10) BP (high blood pressure) ?I10 - Essential (primary) hypertension (ICD-10) High cholesterol ?E78.00 - Pure hypercholesterolemia, unspecified (ICD-10) Diabetes ?E11.9 - Type 2 diabetes mellitus without complications (ICD-10) Surgical History History of heart valve repair ?Z98.890 - Other specified postprocedural states (ICD-10) History of open heart surgery ?Z98.890 - Other specified postprocedural states (ICD-10) Family History Mother Family history of cancer Father Family history of hypertension Social History (Updated 01/16/25 @ 09:36 by Claudia Alfaro RN) Within the past year, how often did you have a drink containing alcohol: never Within the past year, how often did you have six or more drinks on one occasion: never Score interpretation: A score less than 4 is consistent with normal alcohol consumption. Smoking status: Never smoker Second hand tobacco smoke exposure: No Known occupational exposures/hazards: No Highest level of school completed/degree received: 12th grade, no diploma Little interest or pleasure in doing things: not at all Feeling down, depressed, or hopeless: not at all Exam Narrative Exam Narrative: Nurses note and vital signs reviewed and patient is not hypoxic. General: The patient appears well and in no apparent distress. Patient is resting comfortably on cart. Skin: Warm, dry, no pallor noted. There is no rash noted. Head: Normocephalic, atraumatic Eye: Normal conjunctiva, no drainage Ears, Nose, Mouth, and Throat: oral mucosa is moist. Nares patent. Cardiovascular: Regular Rate and Rhythm, not tachycardic; pacemaker site appears to be healing quite well. No dehiscence or erythema. Respiratory: Patient is in no distress, no accessory muscle use, lungs are clear to auscultation, no wheezing, rales or rhonchi; breath sounds are equal Back: non-tender GI: Normal bowel sounds, no tenderness to palpation, no masses appreciated. No rebound, guarding, or rigidity noted. Musculoskeletal: The patient has no evidence of calf tenderness, no pitting edema, symmetrical pulses noted bilaterally Neurological: A&O, normal speech Psychiatric: Cooperative Constitutional Vital Signs, click to edit/add: Last Vital Signs Temp 97.6 F 02/09/25 15:46 Pulse 95 H 02/09/25 17:10 Resp 13 02/09/25 17:10 BP 105/70 02/09/25 17:00 Pulse Ox 93 L 02/09/25 17:10 O2 Del Method Room Air 02/09/25 15:46 Course Vital Signs Vital signs: Vital Signs Pulse Rate 97 H 02/09/25 15:17 Respiratory Rate 13 02/09/25 15:17 Temperature 97.6 F 02/09/25 15:46 Pulse Rate 95 H 02/09/25 17:10 Respiratory Rate 13 02/09/25 17:10 Blood Pressure 105/70 02/09/25 17:00 Pulse Oximetry 93 L 02/09/25 17:10 Oxygen Delivery Method Room Air 02/09/25 15:46 Medical Decision Making [facility] Narrative Medical decision making narrative: His workup including troponin and CTA is negative. Creatinine however was mildly elevated above his baseline and he was given IV fluids and his symptoms seem to have resolved completely. He did not have dyspnea on exertion when he was ambulated here in the emergency department. I spoke with Dr. Caceres and the patient is able to be discharged home. Treatment diagnosis and follow-up were discussed with the patient. Lab Data Lab results reviewed: Yes I reviewed the patient's lab results Labs: Lab Results 02/09/25 Range/Units 15:30 WBC 6.2 (4.0-11.0) 10^3/uL RBC 5.94 (4.70-6.10) 10^6/uL Hgb 16.3 (14.0-18.0) g/dL Hct 48.5 (42.0-54.0) % MCV 81.6 (80.0-94.0) fL MCH 27.4 (25.9-34.0) pg MCHC 33.6 (29.9-35.2) g/dL RDW 14.5 (11.0-15.0) % Plt Count 230 (150-450) 10^3/uL MPV 10.7 (9.5-13.5) fL Neut % (Auto) 48.5 (43.0-75.0) % Lymph % (Auto) 36.8 (20.5-60.0) % [place] % (Auto) 9.0 (1.7-12.0) % Eos % (Auto) 4.8 (0.9-7.0) % Baso % (Auto) 0.6 (0.2-2.0) % Neut # (Auto) 3.0 (1.4-6.5) 10^3/uL Lymph # (Auto) 2.3 (1.2-3.8) 10^3/uL [place] # (Auto) 0.6 (0.3-0.8) 10^3/uL Eos # (Auto) 0.3 (0.0-0.7) 10^3/uL Baso # (Auto) 0.0 (0.0-0.1) 10^3/uL Abs Immat Gran (auto) 0.02 (0.00-0.03) 10^3/uL Imm/Tot Granulo (auto) 0.3 (0.0-0.5) % Sodium 136 (136-145) mmol/L Potassium 4.0 (3.5-5.1) mmol/L Chloride 105 (98-107) mmol/L Carbon Dioxide 21.7 (21.0-32.0) mmol/L Anion Gap 13.3 BUN 19.0 H (7.0-18.0) mg/dL Creatinine 1.61 H (0.70-1.30) mg/dL Est GFR ( Amer) 54 L (>=60 mL/min/1.73m^2) Est GFR (Non-Af Amer) 44 L (>=60 mL/min/1.73m^2) BUN/Creatinine Ratio 11.8 Glucose 178 H (74-106) mg/dL Calcium 8.4 L (8.5-10.1) mg/dL Troponin I High Sens 6.3 (4.0-76.1) pg/mL Imaging Data Chest x-ray, CTA chest: Radiologist's impression: Chest x-ray: No acute process CTA chest: No evidence of acute PE, no focal infiltrate, no pneumothorax ECG Data Attestation: I personally reviewed and interpreted this ECG as follows: (EKG on my interpretation shows no acute changes, rate of 97. The rate is regular and I do not suspect atrial fibrillation) Discharge Plan Discharge Chief Complaint: Chest Pain Clinical Impression: Dyspnea Patient Disposition: Home, Self-Care Time of Disposition Decision: 17:59 Condition: Good Mode of Transportation: Private Vehicle Prescriptions / Home Meds: No Action Eliquis 5 mg tablet 5 mg PO BID aspirin 81 mg capsule 81 mg PO DAILY pantoprazole 40 mg tablet,delayed release (DR/EC) 40 mg PO DAILY ezetimibe 10 mg tablet 10 mg PO DAILY hydrocodone-acetaminophen 5-325 mg tablet 1 tab PO Q6H PRN (Reason: pain) carvedilol 3.125 mg tablet 3.125 mg PO BID dapagliflozin propanediol [Farxiga] 10 mg tablet 10 mg PO QAM furosemide 20 mg tablet 10 mg PO DAILY lisinopril 10 mg tablet 10 mg PO DAILY Print Language: Georgian Instructions: Dyspnea (ED) Referrals: Giovanni Velasquez MD [Primary Care Provider, Family Practice] - 1 week
[2025-02-09 15:41] LABS: Basophils Percent Auto 0.6 % (0.2-2.0); Eosinophils Absolute Auto 0.3 10^3/uL (0.0-0.7); Eosinophils Percent Auto 4.8 % (0.9-7.0); Hematocrit 48.5 % (42.0-54.0); Hemoglobin 16.3 g/dL (14.0-18.0); Immature Granulocytes Abs Auto 0.02 10^3/uL (0.00-0.03); Immature Granulocytes Pct Auto 0.3 % (0.0-0.5); Lymphocytes Absolute Auto 2.3 10^3/uL (1.2-3.8); Lymphocytes Percent Auto 36.8 % (20.5-60.0); Mean Corpuscular HGB Conc 33.6 g/dL (29.9-35.2); Mean Corpuscular Hemoglobin 27.4 pg (25.9-34.0); Mean Corpuscular Volume 81.6 fL (80.0-94.0); Mean Platelet Volume 10.7 fL (9.5-13.5); Monocytes Absolute Auto 0.6 10^3/uL (0.3-0.8); Neutrophils Percent Auto 48.5 % (43.0-75.0); Platelet Count 230 10^3/uL (150-450); Red Blood Count 5.94 10^6/uL (4.70-6.10); Red Cell Distribution Width 14.5 % (11.0-15.0); White Blood Count 6.2 10^3/uL (4.0-11.0)
[2025-02-09 16:00] LABS: Anion Gap 13.3; BUN Creatinine Ratio 11.8; Calcium 8.4 mg/dL (8.5-10.1); Carbon Dioxide 21.7 mmol/L (21.0-32.0); Chloride 105 mmol/L (98-107); Estimated GFR (African America 54 (>=60 mL/min/1.73m^2); Estimated GFR (Non-African Ame 44 (>=60 mL/min/1.73m^2); Glucose 178 mg/dL (74-106); Sodium 136 mmol/L (136-145); Troponin I High Sensitivity 6.3 pg/mL (4.0-76.1)
[2025-02-09] MEDS: 0.9 % SODIUM CHLORIDE 1,000 ML 1000 ML IV (16:36)
== END 2025-02-09 18:20 | disposition home or self-care (01) ==
PROVIDERS: Emergency Provider Emergency Medicine; PCP Family Medicine
DX: R06.00 Dyspnea, unspecified (principal); R06.02 Shortness of breath; R07.9 Chest pain, unspecified; Z95.0 Presence of cardiac pacemaker
CPT/HCPCS: 36415; 71045; 71275; 80048; 84484; 85025; 93005; 99285; Q9966

== ENCOUNTER 2025-02-16 15:16 | Emergency (ER) | payer BC, SELFPAY ==
[2025-02-16] VITALS (13 sets, daily range): BP systolic 112–123; BP diastolic 68–88; PULSE 63–131; TEMP 36.5; O2SAT 92–97; BMI 32.8
--- NOTE | 2025-02-16 15:26 | ECG_ITS ---
[facility] Test Date: 2025-02-16 Pat Name: FLYNN ARNETT Department: Room: - Gender: Male Manager Risk: : 1965 Requested By: 1030 Order Number: [id number] Reading MD: AMANDEEP MORAN M.D. Measurements Intervals [place] Rate: 110 P: 242 MO: 242 QRS: 34 QRSD: 78 T: 62 QT: 328 QTc: 393 Interpretive Statements ATRIAL FIBRILLATION WITH RAPID VENTRICULAR RESPONSE [address] depression 9150 abnormal ECG Compared to ECG 02/09/2025 15:19:03 Atrial flutter no longer present Electronically Signed On 02-16-2025 19:53:04 EDT by AMANDEEP MORAN M.D.
--- NOTE | 2025-02-16 15:27 | ED.GENADUL1 ---
HPI HPI - General Adult General Chief complaint: Arrhythmia/Palpitations Stated complaint: AFIB Time Seen by Provider: 02/16/25 15:21 Source: patient Mode of arrival: walk-in History of Present Illness HPI narrative: 59-year-old male presents for palpitations and feeling weak and dizzy. 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 He has a history of atrial fibrillation and atrial flutter and was seen at the pipeline controller office today for follow-up. He was sent here by them. He states since this morning he has felt palpitations and feels dizzy and lightheaded. Related Data Home Medications ?Medication ?Instructions ?Recorded ?Confirmed ezetimibe 10 mg tablet 10 mg PO DAILY 03/11/23 02/16/25 hydrocodone 5 mg-acetaminophen 325 1 tab PO Q6H PRN pain 03/11/23 02/16/25 mg tablet pantoprazole 40 mg tablet,delayed 40 mg PO DAILY 03/11/23 02/16/25 release carvedilol 3.125 mg tablet 3.125 mg PO BID 01/15/25 02/16/25 dapagliflozin propanediol 10 mg 10 mg PO QAM 01/15/25 02/16/25 tablet (Farxiga) lisinopril 10 mg tablet 10 mg PO DAILY 01/15/25 02/16/25 apixaban 5 mg tablet (Eliquis) 5 mg PO BID 02/09/25 02/09/25 aspirin 81 mg capsule 81 mg PO DAILY 02/09/25 02/16/25 Allergies Allergy/AdvReac Type Severity Reaction Status Date / Time dopamine AdvReac Intermediate Flushing Verified 02/16/25 16:04 Opioid HPI Opioid Management Most Recent Opioid Data: Last Pain Scale 5 02/09/25, 15:35 Last ORT Total Score 0 01/16/25, 09:24 Last ORT Risk Category Low Risk 01/16/25, 09:24 Ur Phencyclidine Scrn, (NEGATIVE) Negative 01/15/25, 18:20 Review of Systems ROS Narrative A ten point review of systems is negative except as noted above. [facility] Medical History (Updated 02/16/25 @ 17:03 by Jose Armando Rider MD) Elevated troponin ?R79.89 - Other specified abnormal findings of blood chemistry (ICD-10) Atrial fibrillation with RVR ?I48.91 - Unspecified atrial fibrillation (ICD-10) BP (high blood pressure) ?I10 - Essential (primary) hypertension (ICD-10) High cholesterol ?E78.00 - Pure hypercholesterolemia, unspecified (ICD-10) Diabetes ?E11.9 - Type 2 diabetes mellitus without complications (ICD-10) Surgical History History of heart valve repair ?Z98.890 - Other specified postprocedural states (ICD-10) History of open heart surgery ?Z98.890 - Other specified postprocedural states (ICD-10) Family History Mother Family history of cancer Father Family history of hypertension Social History (Updated 01/16/25 @ 09:36 by Claudia Alfaro RN) Within the past year, how often did you have a drink containing alcohol: never Within the past year, how often did you have six or more drinks on one occasion: never Score interpretation: A score less than 4 is consistent with normal alcohol consumption. Smoking status: Never smoker Second hand tobacco smoke exposure: No Known occupational exposures/hazards: No Highest level of school completed/degree received: 12th grade, no diploma Little interest or pleasure in doing things: not at all Feeling down, depressed, or hopeless: not at all Exam Narrative Exam Narrative: Nurses note and vital signs reviewed and patient is not hypoxic. General: The patient appears well and in no apparent distress. Patient is resting comfortably on cart. Skin: Warm, dry, no pallor noted. There is no rash noted. Head: Normocephalic, atraumatic Eye: Normal conjunctiva, no drainage Ears, Nose, Mouth, and Throat: oral mucosa is moist. Nares patent. Cardiovascular: Irregularly irregular and mildly tachycardic Respiratory: Patient is in no distress, no accessory muscle use, lungs are clear to auscultation, no wheezing, rales or rhonchi Back: non-tender GI: Soft and nontender Musculoskeletal: The patient has no evidence of calf tenderness, no pitting edema, symmetrical pulses noted bilaterally Neurological: A&O, normal speech Psychiatric: Cooperative Constitutional Vital Signs, click to edit/add: Last Vital Signs Temp 97.7 F 02/16/25 15:22 Pulse 122 H 02/16/25 15:22 Resp 20 02/16/25 15:22 BP 123/88 02/16/25 15:22 Pulse Ox 97 02/16/25 15:22 O2 Del Method Room Air 02/16/25 15:22 Course Vital Signs Vital signs: Vital Signs Temperature 97.7 F 02/16/25 15:22 Pulse Rate 122 H 02/16/25 15:22 Respiratory Rate 20 02/16/25 15:22 Blood Pressure 123/88 02/16/25 15:22 Pulse Oximetry 97 02/16/25 15:22 Oxygen Delivery Method Room Air 02/16/25 15:22 Temperature 97.7 F 02/16/25 15:22 Pulse Rate 122 H 02/16/25 15:22 Respiratory Rate 20 02/16/25 15:22 Blood Pressure 123/88 02/16/25 15:22 Pulse Oximetry 97 02/16/25 15:22 Oxygen Delivery Method Room Air 02/16/25 15:22 Medical Decision Making MDM Narrative Medical decision making narrative: The patient had tachycardia upon arrival in an undetermined rhythm. He was tachycardic and regular and the possibility of atrial flutter was considered. He was given 10 mg of IV Cardizem and his heart rate slowed down and then he eventually went back into his paced rhythm and remained so. Blood work is negative. He has no symptoms now and wants to go home. He will call his pipeline controller in the morning. Treatment diagnosis and follow-up were discussed with the patient. Differential Diagnosis Differential Diagnosis: Atrial relation, atrial flutter, sinus tachycardia Lab Data Lab results reviewed: Yes I reviewed the patient's lab results Labs: Lab Results 02/16/25 Range/Units 15:30 WBC 8.8 (4.0-11.0) 10^3/uL RBC 5.86 (4.70-6.10) 10^6/uL Hgb 16.2 (14.0-18.0) g/dL Hct 47.7 (42.0-54.0) % MCV 81.4 (80.0-94.0) fL MCH 27.6 (25.9-34.0) pg MCHC 34.0 (29.9-35.2) g/dL RDW 14.5 (11.0-15.0) % Plt Count 241 (150-450) 10^3/uL MPV 10.8 (9.5-13.5) fL Neut % (Auto) 54.6 (43.0-75.0) % Lymph % (Auto) 33.0 (20.5-60.0) % [place] % (Auto) 8.8 (1.7-12.0) % Eos % (Auto) 2.8 (0.9-7.0) % Baso % (Auto) 0.5 (0.2-2.0) % Neut # (Auto) 4.8 (1.4-6.5) 10^3/uL Lymph # (Auto) 2.9 (1.2-3.8) 10^3/uL [place] # (Auto) 0.8 (0.3-0.8) 10^3/uL Eos # (Auto) 0.3 (0.0-0.7) 10^3/uL Baso # (Auto) 0.0 (0.0-0.1) 10^3/uL Abs Immat Gran (auto) 0.03 (0.00-0.03) 10^3/uL Imm/Tot Granulo (auto) 0.3 (0.0-0.5) % Sodium 139 (136-145) mmol/L Potassium 4.5 (3.5-5.1) mmol/L Chloride 105 (98-107) mmol/L Carbon Dioxide 22.0 (21.0-32.0) mmol/L Anion Gap 16.5 BUN 23.0 H (7.0-18.0) mg/dL Creatinine 1.43 H (0.70-1.30) mg/dL Est GFR ( Amer) >60 (>=60 mL/min/1.73m^2) Est GFR (Non-Af Amer) 51 L (>=60 mL/min/1.73m^2) BUN/Creatinine Ratio 16.1 Glucose 104 (74-106) mg/dL Calcium 9.3 (8.5-10.1) mg/dL Magnesium 2.0 (1.8-2.4) mg/dL Troponin I High Sens 9.4 (4.0-76.1) pg/mL Imaging Data Chest x-ray: Attestation: I personally reviewed and interpreted this imaging study as follows: (EKG on my interpretation showsOf 110, rhythm) Radiologist's impression: No acute process Critical Care Time Critical Care Time Critical Care Time: Yes Total Critical Care Time: 35 Attestation: Due to the high probability of sudden and clinically significant deterioration in the patient's condition he/she required the highest level of my preparedness to intervene urgently I provided critical care time including documentation time, medication orders and management, reevaluation, vital sign assessment, ordering and reviewing of lab tests, ordering and reviewing of x-ray studies, and admission orders. Aggregate critical care time is 35 minutes including only time during which I was engaged in work directly related to his/her care and did not include time spent treating other patients simultaneously. Discharge Plan Discharge Chief Complaint: Arrhythmia/Palpitations Clinical Impression: Atrial tachycardia Patient Disposition: Home, Self-Care Time of Disposition Decision: 17:03 Condition: Good Mode of Transportation: Private Vehicle Prescriptions / Home Meds: No Action Eliquis 5 mg tablet 5 mg PO BID aspirin 81 mg capsule 81 mg PO DAILY pantoprazole 40 mg tablet,delayed release (DR/EC) 40 mg PO DAILY ezetimibe 10 mg tablet 10 mg PO DAILY hydrocodone-acetaminophen 5-325 mg tablet 1 tab PO Q6H PRN (Reason: pain) carvedilol 3.125 mg tablet 3.125 mg PO BID dapagliflozin propanediol [Farxiga] 10 mg tablet 10 mg PO QAM lisinopril 10 mg tablet 10 mg PO DAILY Print Language: Telugu Instructions: Tachycardia (ED) Additional Instructions: Call your pipeline controller in the morning. Referrals: Giovanni Velasquez MD [Primary Care Provider, Family Practice] - 1 week
--- NOTE | 2025-02-16 16:00 | ECG_ITS ---
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 Measurements Intervals [place] Rate: 92 P: 245 MS: 232 QRS: 26 QRSD: 76 T: 36 QT: 340 QTc: 390 Interpretive Statements ATRIAL FIBRILLATION WITH RAPID VENTRICULAR RESPONSE [address] depression 4664 [place] abnormality, possible inferior ischemia 9150 abnormal ECG Compared to ECG 02/16/2025 15:25:33 No significant changes Electronically Signed On 02-16-2025 19:54:24 EDT by AMANDEEP MORAN M.D.
[2025-02-16 16:01] LABS: Basophils Percent Auto 0.5 % (0.2-2.0); Eosinophils Absolute Auto 0.3 10^3/uL (0.0-0.7); Eosinophils Percent Auto 2.8 % (0.9-7.0); Hematocrit 47.7 % (42.0-54.0); Hemoglobin 16.2 g/dL (14.0-18.0); Immature Granulocytes Abs Auto 0.03 10^3/uL (0.00-0.03); Immature Granulocytes Pct Auto 0.3 % (0.0-0.5); Lymphocytes Absolute Auto 2.9 10^3/uL (1.2-3.8); Mean Corpuscular Hemoglobin 27.6 pg (25.9-34.0); Mean Corpuscular Volume 81.4 fL (80.0-94.0); Mean Platelet Volume 10.8 fL (9.5-13.5); Monocytes Absolute Auto 0.8 10^3/uL (0.3-0.8); Monocytes Percent Auto 8.8 % (1.7-12.0); Neutrophils Absolute Auto 4.8 10^3/uL (1.4-6.5); Neutrophils Percent Auto 54.6 % (43.0-75.0); Platelet Count 241 10^3/uL (150-450); Red Blood Count 5.86 10^6/uL (4.70-6.10); Red Cell Distribution Width 14.5 % (11.0-15.0); White Blood Count 8.8 10^3/uL (4.0-11.0)
[2025-02-16 16:16] LABS: Anion Gap 16.5; BUN Creatinine Ratio 16.1; Calcium 9.3 mg/dL (8.5-10.1); Chloride 105 mmol/L (98-107); Estimated GFR (African America >60 (>=60 mL/min/1.73m^2); Estimated GFR (Non-African Ame 51 (>=60 mL/min/1.73m^2); Glucose 104 mg/dL (74-106); Potassium 4.5 mmol/L (3.5-5.1); Sodium 139 mmol/L (136-145); Troponin I High Sensitivity 9.4 pg/mL (4.0-76.1)
--- NOTE | 2025-02-16 16:43 | ECG_ITS ---
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 Measurements Intervals [place] Rate: 75 P: -79 MA: 156 QRS: 21 QRSD: 82 T: 50 QT: 378 QTc: 407 Interpretive Statements Electronic atrial pacemaker abnormal ECG Compared to ECG 02/16/2025 16:02:03 Electronic atrial pacemaker has replaced atrial fibrillation ST (T wave) deviation no longer present Electronically Signed On 02-16-2025 19:56:41 EDT by AMANDEEP MORAN M.D.
== END 2025-02-16 17:11 | disposition home or self-care (01) ==
PROVIDERS: Emergency Provider Emergency Medicine; PCP Family Medicine
DX: I47.19 Other supraventricular tachycardia (principal); I48.91 Unspecified atrial fibrillation; I48.92 Unspecified atrial flutter
CPT/HCPCS: 36415; 71045; 80048; 83735; 84484; 85025; 93005; 99285

== ENCOUNTER 2025-05-06 07:52 | Outpatient (OUT) | payer BC, SELFPAY ==
--- OUTSIDE RECORDS SUMMARY | 2025-05-06 07:56 | XMS_ITS | CCD ---
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 Name Role Phone Lauren Velasquez Primary Care [...] DR SANCHEZ Consulting Unavailable Monica Jackson Unavailable SAFI, CHAMP Referring Unavailable DARRYN LUNDY Referring Unavailable ELTAADONIS DEVINE Referring Unavailable DARRYN LUNDY Attending Unavailable TANK PIERRE Attending Unavailable ELTANILSON, ADONIS Attending Unavailable SAFI, CHAMP Referring Unavailable DARRYN LUNDY Referring Unavailable SAFI, CHAMP Referring Unavailable DARRYN LUNDY Referring Unavailable SAFI, CHAMP Referring Unavailable LUAREN VELASQUEZ Referring Unavailable SAFI, CHAMP Admitting Unavailable SAFI, CHAMP Attending Unavailable ELTAHAWYADONIS Attending Unavailable ELTAHAWY, ADONIS Attending Unavailable Medications Current Medications Medication [...] with obstruction, without gangrene] Onset: 12-16-2022 Episodic Aortic; peripheral; and visceral artery aneurysms (2 sources) Aortic ectasia, unspecified site; Translations: [Aortic ectasia, unspecified site] Onset: 01-31-2025 Chronic Cardiac and circulatory congenital anomalies (2 sources) Congenital mitral insufficiency; Translations: [Congenital mitral insufficiency] Onset: 05-27-2023 Chronic Cardiac dysrhythmias (6 sources) Paroxysmal atrial fibrillation; Translations: [Unspecified atrial fibrillation] Onset: 01-16-2025 Chronic Cardiac dysrhythmias (2 sources) Bradycardia, unspecified; Translations: [Bradycardia, unspecified] Onset: 01-16-2025 Episodic Conduction disorders (4 sources) Encounter for adjustment and management of other part of cardiac pacemaker; Translations: [Presence of automatic (implantable) cardiac defibrillator] Onset: 01-26-2025 Chronic Congestive heart failure; nonhypertensive (2 sources) Chronic diastolic (congestive) heart failure; Translations: [Chronic diastolic (congestive) heart failure] Onset: 01-16-2025 Chronic Coronary atherosclerosis and other heart disease (2 sources) Unstable angina; Translations: [Unstable angina] Onset: 01-16-2025 Chronic Diabetes mellitus without complication (3 sources) [...] mitral valve disease, unspecified] Onset: 05-31-2023 Chronic Other ear and sense organ disorders [...] SCREEN MALIG NEOPLASM PROSTATE] Onset: 01-20-2023 Episodic Unclassified (1 source) Aneurysm of the ascending aorta, without rupture; Translations: [Aneurysm of the ascending aorta, without rupture] Onset: 10-30-2023 Past or Other Problems Problem Classification Problem Date Documented Da te Episodic/Chronic Fever of unknown origin (1 source) Fever, unspecified; Translations: [FEVER UNSPECIFIED] Onset: 03-12-2022 Episodic Heart valve disorders (4 sources) Heart murmur; Translations: [Cardiac murmur, unspecified] Onset: 12-22-2022 12-19-2022 Episodic Other gastrointestinal disorders (4 sources) Diarrhea, unspecified; Translations: [DIARRHEA UNSPECIFIED] Onset: 03-06-2022 Episodic Other lower respiratory disease (2 sources) Other forms of dyspnea; Translations: [Other forms of dyspnea] Onset: 12-06-2024 Episodic Residual codes; unclassified (2 sources) Other specified postprocedural states; Translations: [Other specified postprocedural states] Onset: 10-27-2024 Episodic Unclassified (1 source) Aneurysm of the ascending aorta, without rupture; Translations: [Aneurysm of the ascending aorta, without rupture] Onset: 04-15-2024 Results Test Name Value Interpretation Reference Range Facility Prep for Procedureon 025 Prep for Procedure [id number] Watson Arnett 1965 M Date Provider Department Center 03/30/20251986-MINDI VELASCO [facility] Family History Problem Relation Age of Onset No Known Problems Mother No Known Problems Father Family Status - Relation Status Age at Mother Father Alive [facility] Prep for Procedureon 025 Prep for Procedure [id number] Watson Arnett 1965 M Date Provider Department Center 03/24/20251986-MINDI VELASCO [facility] Family History Problem Relation Age of Onset No Known Problems Mother No Known Problems Father Family Status - Relation Status Age at Mother Father Alive [facility] Follow-Upon 03-07-2025 Follow-Up [id number] Watson Arnett M 1965 M Date Provider Department Center 03/07/2025 Norma-DARRYN LUNDY [facility] Family History Problem Relation Age of Onset No Known Problems Mother No Known Problems Father Family Status - Relation Status Age at Mother Father Alive Level of Service:50796 [place] OFFICE/OUTPATIENT NEW MODERATE MDM 45 MINUTES [facility] 02-22-2025 36 Patient called back very upset that his call from Tuesday 02/20 was not returned. I advised him of medication changes and they were sent into his pharmacy. He has follow up apt with Dr. Lundy on 03/07/2025. Patient verbalized understanding. [facility] 02-21-2025 36 We can start him on diltiazem 120mg daily to try to help control his HR. While this can also affect BP, would like to change carvedilol to Toprol 25mg daily to try to help prevent low BP. He should monitor his BP and HR 2 hours after medications and bring in readings to his next visit. [facility] Orders Only02-17-2025 Orders Only [id number] Watson Arnett 1965 M Date Provider Department Center 02/17/2025 DARRYN FATIMA [facility] Family History Problem Relation Age of Onset No Known Problems Mother No Known Problems Father Family Status - Relation Status Age at Mother Father [facility] 02-03-2025 36 Patient informed. I also told him he could take an extra dose of carvedilol (3.125mg) if he felt his heart race again. Says about 1 hour after he spoke with me yesterday he started to feel fine again. Has felt fine today also. Advised patient to go to the ED if symptoms worsen. He verbalized understanding. [facility] 02-02-2025 36 Patient called to horace ke you aware that yesterday and today he feels extremely tired, dizzy, and has palpitations walking from room to room in his house. Says he can feel the afib . Said HR gets up to around 120 when he does this, but then goes back down. When he's resting, he's ok. Patient states when he saw you in the office 2 days ago, he felt great and like he could run a marathon. I told him I would make you aware, and that you're going to want him to keep his scheduled apt with Dr. Lundy next month. I also told him if his HR stays above 120 for more than an hour he should report to the ED. Any suggestions? Thanks. Normal [facility] Office Visiton 01-31-2025 Follow-up visit [id number] Watson Arnett wn M 1965 M Date Provider Department Center 01/31/2025 271-ADONIS [facility] Family History Problem Relation Age of Onset No Known Problems Mother No Known Problems Father Family Status - Relation Status Age at Mother Father Level of Service:47659 MI OFFICE/OUTPATIENT ESTABLISHED MOD MDM 30 MIN Normal [facility] 30on 01-18-2025 30 Daily Case Managemen t Update Multidisciplinary rounds have been completed. Barriers to Discharge: 01/18- patient went for [facility] yesterday, PPM was placed. Possible discharge today? cb Diet: Dietary Orders (From admission, onward) Start Ordered 01/17/25 0001 Diet NPO Diet effective midnight Comments: Sips with medications Question: Reason for NPO: Answer: Operation/Procedure 01/16/25 1515 Physician Expected Discharge Date: 01/18/2025 Discharge Delays: PT Six Click Score: OT Six Click Score: PT Recommendations: OT Recommendations: New Consults: Normal [facility] BASIC METABOLIC PANELon 01-03 Anion gap [Moles/Vol] 10 mmol/L Normal 7-20 [facility] Comment on above: Performed By: #### L [id number] ####[facility] (BEAKER)[address] [place] [address] Calcium [Mass/Vol] 8.2 mg/dL Low 8.6-10.3 [facility] Comment on above: Performed By: #### L [id number] ####[facility] ([employer])[address] [place] [address] Chloride [Moles/Vol] 106 mmol/L Normal 98-107 [facility] Comment on above: Performed By: #### L [id number] ####[facility] ([employer])[address] [place] [address] CO2 [Moles/Vol] 24 mmol/L Normal 21-31 [facility] Comment on above: Performed By: #### L [id number] ####[facility] ([facility])[address] [place] [address] Creatinine [Mass/Vol] 1.24 mg/dL Normal 0.60-1.30 [facility] Comment on above: Performed By: #### L [id number] ####[facility] ([facility])[address] [place] [address] GLOMERULAR FILTRATION RATE ML/MIN/1.73 SQ M.PREDICTED 50.8 mL/min/1.73m*2 Low >60.0 [facility] Comment on above: Result Comment: The [facility]???s estimated glomerular filtration rate (eGFR) [...] of individuals. Performed By: #### L [id number] ####[facility] ([facility])[address] [place] [address] Glucose [Mass/Vol] 128 mg/dL High 70-100 [facility] Comment on above: Performed By: #### L [id number] ####[facility] ([facility])[address] [place] [address] Potassium [Moles/Vol] 4.0 mmol/L Normal 3.5-5.1 [facility] Comment on above: Performed By: #### L [id number] ####[facility] ([facility])[address] [place] [address] Sodium [Moles/Vol] 136 mmol/L Normal 136-145 [facility] Comment on above: Performed By: #### L [id number] ####[facility] (BEAKER)[address] [place] [address] Urea nitrogen [Mass/Vol] 16 mg/dL Normal 7-25 [facility] Comment on above: Performed By: #### L [id number] ####[facility] (BEAKER)[address] [place] [address] UREA NITROGEN/CREATININE (MASS RATIO) IN SER/PLAS 12.9 Normal [facility] Comment on above: Performed By: #### L [id number] ####[facility] ([facility])[address] [place] [address] CBC WITH AUTO DIFFERENTIALon 01-18-2025 Basophils (Bld) [#/Vol] 0.03 10*3/uL Normal 0.00-0.20 [facility] Comment on above: Performed By: #### L [id number] ####[facility] ([facility])[address] [place], [place] [address] Basophils/100 WBC (Bld) 0.4 % Normal 0.0-1.0 [facility] Comment on above: Performed By: #### L [id number] ####[facility] ([facility])[address] [place] [address] Eosinophils (Bld) [#/Vol] 0.20 10*3/uL Normal 0.00-0.50 [facility] Comment on above: Performed By: #### L [id number] ####[facility] ([facility])[address] [place] [address] Eosinophils/100 WBC (Bld) 2.6 % Normal 0.0-6.0 [facility] Comment on above: Performed By: #### L [id number] ####[facility] ([facility])[address] [place], [place] [address] Erythrocyte distribution width (RBC) [Ratio] 14.6 % Normal 11.5-15.0 [facility] Comment on above: Performed By: #### L [id number] ####[facility] (BEAKER)[address] [place] [address] ERYTHROCYTE MEAN CORPUSCULAR HEMOGLOBIN CONCENTRATION (G/DL) BY AUTOMATED 33.3 g/dL Normal 32.0-35.0 [facility] Comment on above: Performed By: #### L [id number] ####[facility] (BEAKER)[address] [place] [address] Hematocrit (Bld) [Volume fraction] 45.0 % Normal 36.0-50.0 [facility] Comment on above: Performed By: #### L [id number] ####[facility] (BEAKER)[address] [place] [address] Hemoglobin (Bld) [Mass/Vol] 15.0 g/dL Normal 12.0-17.0 [facility] Comment on above: Performed By: #### L [id number] ####[facility] (BEAKER)[address] [place] [address] Immature granulocytes (Bld) [#/Vol] 0.01 10*3/uL Normal 0.00-0.20 [facility] Comment on above: Performed By: #### L [id number] ####[facility] (BEAKER)[address] [place] [address] Immature granulocytes/100 WBC (Bld) 0.1 % Normal 0.0-1.0 [facility] Comment on above: Performed By: #### L [id number] ####[facility] (BEAKER)[address] [place] [address] Lymphocytes (Bld) [#/Vol] 1.73 10*3/uL Normal 1.20-4.00 [facility] Comment on above: Performed By: #### L [id number] ####[facility] (BEAKER)[address] [place] [address] Lymphocytes/100 WBC (Bld) 22.7 % Normal 20.0-45.0 [facility] Comment on above: Performed By: #### L [id number] ####[facility] (BEAKER)[address] [place] [address] MCH (RBC) [Entitic mass] 27.1 pg Normal 27.0-33.0 [facility] Comment on above: Performed By: #### L [id number] ####[facility] ([facility])[address] [place] [address] MCV (RBC) [Entitic vol] 81.2 fL Low 82.0-98.0 [facility] Comment on above: Performed By: #### L [id number] ####[facility] ([facility])[address] [place] [address] Monocytes (Bld) [#/Vol] 0.71 10*3/uL Normal 0.10-1.00 [facility] Comment on above: Performed By: #### L [id number] ####[facility] ([facility])[address] [place] [address] Monocytes/100 WBC (Bld) 9.3 % Normal 5.0-12.0 [facility] Comment on above: Performed By: #### L [id number] ####[facility] ([facility])[address] [place] [address] Neutrophils (Bld) [#/Vol] 4.95 10*3/uL Normal 1.60-7.60 [facility] Comment on above: Performed By: #### L [id number] ####[facility] ([facility])[address] [place] [address] Neutrophils/100 WBC (Bld) 64.9 % Normal 40.0-72.0 [facility] Comment on above: Performed By: #### L [id number] ####[facility] ([facility])[address] [place] [address] NRBC (PER 100 WBCS) BY AUTOMATED COUNT 0.0 % Normal 0 [facility] Comment on above: Performed By: #### L [id number] ####[facility] (BEAKER)[address] [place] [address] PLATELETS (10*3/UL) IN BLOOD AUTOMATED COUNT 219 10*3/uL Normal 150-400 [facility] Comment on above: Performed By: #### L [id number] ####[facility] ([facility])[address] [place] [address] RBC (Bld) [#/Vol] 5.54 10*6/uL Normal 3.80-5.70 [facility] Comment on above: Performed By: #### L [id number] ####[facility] ([facility])[address] [place] [address] WBC (Bld) [#/Vol] 7.63 10*3/uL Normal 4.00-10.60 [facility] Comment on above: Performed By: #### L [id number] ####[facility] ([facility])[address] [place] [address] DSon 01-18-2025 DS -- Attestation signed by Champ Caceres MD at 01/20/2025 12:31 PM Patient was seen and examined with the resident on the same date of service, I discussed the findings and therapeutic plan with the resident/fellow, I agree with the documentation, assessment and plan as above except for any edits/updates below. Champ Caceres MD technology manager Pulmonary and critical care department [id number] Admission Admitted 01/16/2025 for Bradycardia Discharge Diagnosis Primary Symptomatic severe sinus bradycardia Shock, cardiogenic from bradycardia arrhythmias Unstable angina Tachybrady syndrome Secondary Heart failure with preserved ejection fraction Mitral valve prolapse with regurgitation s/p mitral valve repair Essential hypertension Iur-jvziqxe-iktzjdvdl type 2 diabetes mellitus Discharge Disposition Home or Self Care () Discharge Medications Your medication list START taking these medications Instructions Last Dose Given Next Dose Due apixaban 5 mg tablet Commonly known as: Eliquis Start taking on: January 25, 2025 Take 1 tablet (5 mg) by mouth two times daily. Please start taking eliquis after 1 week, starting from 01/25 Do not start before January 25, 2025. CONTINUE taking these medications Instructions Last Dose Given Next Dose Due aspirin 81 mg EC tablet carvedilol 3.125 mg tablet Commonly known as: Coreg Take 1 tablet (3.125 mg) by mouth with breakfast and with evening meal. dapagliflozin propanediol 10 mg Commonly known as: Farxiga Take 1 tablet (10 mg) by mouth in the morning. ezetimibe 10 mg tablet Commonly known as: Zetia Take 1 tablet (10 mg) by mouth in the morning. furosemide 20 mg tablet Commonly known as: Lasix Take 1/2 tablet daily HYDROcodone-acetaminop hen 5-325 mg tablet Commonly known as: [place] lisinopril 10 mg tablet Take 1 tablet (10 mg) by mouth in the morning. pantoprazole 40 mg EC tablet Commonly known as: ProtoNix simvastatin 20 mg tablet Commonly known as: Zocor Where to Get Your Medications These medications were sent to The [facility] [place] [address] [address] [place] [address], [facility] [address] apixaban 5 mg tablet Activity Normal activity as tolerated Diet Patient currently has no discharge diet orders Allergies Patient has no known allergies. Hospital Course Flynn Arnett is a 59 y.o. adult with a past medical history of heart failure with preserved ejection fraction, hypertension, mitral valve prolapse with regurgitation s/p mitral valve repair, hyperlipidemia, uxw-rpsusqs-plqulvpoy type 2 diabetes, AAA who presents as a transfer from [facility]. Patient developed left lower chest pain yesterday, associated with shortness of breath. He says that he has been dealing with chest pains for quite a while but this episode was worse than his usual. 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 He also had shortness of breath and dizziness with this episode. Also had racing heartbeat. He went to the [facility] with these complaints, where reportedly his heart rate was as high as 165 bpm and he was found to have atrial fibrillation with rapid ventricular response. Patient says he was given some medication (possibly Cardizem) to control his heart rate, which brought his heart rate to his baseline of around 50s. However, on 01/16, his heart rate dropped down even further to 20 to 30 bpm. He was transferred to [facility] for higher level of care. At [facility], his heart rate was at his baseline of 50s. His EKG showed sinus bradycardia. Upon evaluation here, he says that his chest pain had subsided to 2-3 out of 10. Saturating normally on room air. He says that he has chronic bradycardia, and has been dealing with chest pain, shortness of breath and dizziness for the past few months. His last cardiac catheterization was in February 2023 which showed angiographically normal coronaries. He has been on low-dose Coreg at home. His CMP and CBC were unremarkable. There were no reversible causes of sinus bradycardia. Patient was seen by cardiology, a left heart cath was done which showed angiographically normal coronary arteries. After the cardiac cath, patient received a permanent pacemaker on 01/17. Pacemaker was found to be working adequately. During the course of hospitalization patient developed atrial fibrillation with rapid ventricular response. His home Coreg was resumed after the pacemaker was inserted. Patient was instructed to start Eliquis after 1 week from 01/25 per cardiology instructions to prevent pocket hematoma in the setting of recent PPM placement During the day of discharge, libia (more content not included)... Normal [facility] Letter (Out)on 01-18-2025 Letter (Out) [id number] Watson Arnett 1965 M Date Provider Department Center 01/18/2025 [id number], GENERIC PRO*INIT None Family History Problem Relation Age of Onset No Known Problems Mother No Known Problems Father Family Status - Relation Status Age at Mother Father Normal [facility] MAGNESIUMon 01-18-2025 Magnesium [Mass/Vol] 2.0 mg/dL Normal 1.9-2.7 [facility] Comment on above: Performed By: #### L [id number] ####[facility] (BEAKER)[address] [place] [address] PHOSPHORUSon 01-18-2025 Magnesium [Mass/Vol] 3.8 mg/dL Normal 2.5-5.0 [facility] Comment on above: Performed By: #### L [id number] ####[facility] ([facility])[address] [place] [address] POCT GLUCOSE METER UNSOLICIT ED RESULTSon 01-18-2025 Glucose [Mass/Vol] 168 mg/dL High 70-105 [facility] Comment on above: Order Comment: Waive d Testing in the ED is performed under the ED CLIA certificate #[id number]. Result Comment: [email or web address] Performed By: #### L [id number] #### [facility] ([facility]) [address] [place] [address] 30on 01-17-2025 30 Daily Case Managemen t Update Multidisciplinary rounds have been completed. Barriers to Discharge: 01/17- patient with cardiac history, TVAR 2 yeara ago, was at [facility] with CP, was in afib RVR, had episode of significant bradycardia (20s), HR ultimately came up to 40s, plan is for cath and possible pacer today. Plan is home no needs. cb Diet: Dietary Orders (From admission, onward) Start Ordered 01/17/25 0001 Diet NPO Diet effective midnight Comments: Sips with medications Question: Reason for NPO: Answer: Operation/Procedure 01/16/25 1515 Physician Expected Discharge Date: 01/21/2025 Discharge Delays: PT Six Click Score: OT Six Click Score: PT Recommendations: OT Recommendations: New Consults: Normal [facility] BASIC METABOLIC PANELon - Anion gap [Moles/Vol] 9 mmol/L Normal 7-20 [facility] Comment on above: Performed By: #### L [id number] ####[facility] ([facility])[address] [place] [address] Calcium [Mass/Vol] 8.2 mg/dL Low 8.6-10.3 [facility] Comment on above: Performed By: #### L [id number] ####[facility] (BEAKER)[address] [place] [address] Chloride [Moles/Vol] 109 mmol/L High 98-107 [facility] Comment on above: Performed By: #### L [id number] ####[facility] (BEAKER)[address] [place] [address] CO2 [Moles/Vol] 24 mmol/L Normal 21-31 [facility] Comment on above: Performed By: #### L [id number] ####[facility] ([facility])[address] [place] [address] Creatinine [Mass/Vol] 1.24 mg/dL Normal 0.60-1.30 [facility] Comment on above: Performed By: #### L [id number] ####[facility] ([facility])[address] [place] [address] GLOMERULAR FILTRATION RATE ML/MIN/1.73 SQ M.PREDICTED 50.8 mL/min/1.73m*2 Low >60.0 [facility] Comment on above: Result Comment: The [facility]???s estimated glomerular filtration rate (eGFR) [...] of individuals. Performed By: #### L [id number] ####[facility] ([facility])[address] [place] [address] Glucose [Mass/Vol] 120 mg/dL High 70-100 [facility] Comment on above: Performed By: #### L [id number] ####[facility] C[facility])[address] [place] [address] Potassium [Moles/Vol] 4.1 mmol/L Normal 3.5-5.1 [facility] Comment on above: Performed By: #### L [id number] ####[facility] ([facility])[address] [place] [address] Sodium [Moles/Vol] 138 mmol/L Normal 136-145 [facility] Comment on above: Performed By: #### L [id number] ####[facility] ([facility])[address] [place] [address] Urea nitrogen [Mass/Vol] 15 mg/dL Normal 7-25 [facility] Comment on above: Performed By: #### L [id number] ####[facility] ([facility])[address] [place] [address] UREA NITROGEN/CREATININE (MASS RATIO) IN SER/PLAS 12.1 Normal [facility] Comment on above: Performed By: #### L [id number] ####[facility] ([facility])[address] [place] [address] CBC WITH AUTO DIFFERENTIALon 01-17-2025 Basophils (Bld) [#/Vol] 0.03 10*3/uL Normal 0.00-0.20 [facility] Comment on above: Performed By: #### L [id number] #### [facility] ([facility]) [address] [place] [address] Basophils/100 WBC (Bld) 0.4 % Normal 0.0-1.0 [facility] Comment on above: Performed By: #### L [id number] #### [facility] ([facility]) [address] [place] [address] Eosinophils (Bld) [#/Vol] 0.26 10*3/uL Normal 0.00-0.50 [facility] Comment on above: Performed By: #### L [id number] #### [facility] ([facility]) [address] [place] [address] Eosinophils/100 WBC (Bld) 3.8 % Normal 0.0-6.0 [facility] Comment on above: Performed By: #### L [id number] #### [facility] ([facility]) [address] [place] [address] Erythrocyte distribution width (RBC) [Ratio] 14.6 % Normal 11.5-15.0 [facility] Comment on above: Performed By: #### L [id number] #### [facility] ([facility]) [address] [place] [address] ERYTHROCYTE MEAN CORPUSCULAR HEMOGLOBIN CONCENTRATION (G/DL) BY AUTOMATED 31.7 g/dL Low 32.0-35.0 [facility] Comment on above: Performed By: #### L [id number] #### [facility] ([facility]) [address] [place] [address] Hematocrit (Bld) [Volume fraction] 43.9 % Normal 36.0-50.0 [facility] Comment on above: Performed By: #### L [id number] #### [facility] ([facility]) [address] [place] [address] Hemoglobin (Bld) [Mass/Vol] 13.9 g/dL Normal 12.0-17.0 [facility] Comment on above: Performed By: #### L [id number] #### [facility] ([facility]) [address] [place] [address] Immature granulocytes (Bld) [#/Vol] 0.02 10*3/uL Normal 0.00-0.20 [facility] Comment on above: Performed By: #### L [id number] #### [facility] ([facility]) [address] [place] [address] Immature granulocytes/100 WBC (Bld) 0.3 % Normal 0.0-1.0 [facility] Comment on above: Performed By: #### L [id number] #### [facility] ([facility]) [address] [place] [address] Lymphocytes (Bld) [#/Vol] 1.91 10*3/uL Normal 1.20-4.00 [facility] Comment on above: Performed By: #### L [id number] #### [facility] ([facility]) [address] [place] [address] Lymphocytes/100 WBC (Bld) 28.2 % Normal 20.0-45.0 [facility] Comment on above: Performed By: #### L [id number] #### [facility] ([facility]) [address] [place] [address] MCH (RBC) [Entitic mass] 27.0 pg Normal 27.0-33.0 [facility] Comment on above: Performed By: #### L [id number] #### [facility] ([facility]) [address] [place] [address] MCV (RBC) [Entitic vol] 85.4 fL Normal 82.0-98.0 [facility] Comment on above: Performed By: #### L [id number] #### [facility] ([facility]) [address] [address] Monocytes (Bld) [#/Vol] 0.54 10*3/uL Normal 0.10-1.00 [facility] Comment on above: Performed By: #### L [id number] #### [facility] ([facility]) [address] [place] [place] [address] Monocytes/100 WBC (Bld) 8.0 % Normal 5.0-12.0 [facility] Comment on above: Performed By: #### L [id number] #### [facility] ([facility]) [address] [place] [address] Neutrophils (Bld) [#/Vol] 4.01 10*3/uL Normal 1.60-7.60 [facility] Comment on above: Performed By: #### L [id number] #### [facility] ([facility]) [address] [place] [address] Neutrophils/100 WBC (Bld) 59.3 % Normal 40.0-72.0 [facility] Comment on above: Performed By: #### L [id number] #### [facility] ([facility]) [address] [place] [address] NRBC (PER 100 WBCS) BY AUTOMATED COUNT 0.0 % Normal 0 [facility] Comment on above: Performed By: #### L [id number] #### [facility] ([facility]) [address] [place] [address] PLATELETS (10*3/UL) IN BLOOD AUTOMATED COUNT 198 10*3/uL Normal 150-400 [facility] Comment on above: Performed By: #### L [id number] #### [facility] ([facility]) [address] [place] [address] RBC (Bld) [#/Vol] 5.14 10*6/uL Normal 3.80-5.70 [facility] Comment on above: Performed By: #### L [id number] #### [facility] ([facility]) [address] [place] [address] WBC (Bld) [#/Vol] 6.77 10*3/uL Normal 4.00-10.60 [facility] Comment on above: Performed By: #### L [id number] #### [facility] ([facility]) [address] [place] [address] HPon 01-17-2025 HP H&P reviewed. The patient was examined and there are no changes to the H&P. Normal [facility] MAGNESIUMon 01-17-2025 Magnesium [Mass/Vol] 2.0 mg/dL Normal 1.9-2.7 [facility] Comment on above: Performed By: #### L [id number] #### [facility] ([facility]) [address] [place] [address] PHOSPHORUSon 01-17-2025 Magnesium [Mass/Vol] 3.4 mg/dL Normal 2.5-5.0 [facility] Comment on above: Performed By: #### L [id number] #### [facility] ([facility]) [address] [place] [address] POCT GLUCOSE METER UNSOLICIT ED RESULTSon 01-17-2025 Glucose [Mass/Vol] 153 mg/dL High 70-105 [facility] Comment on above: Order Comment: Waive d Testing in the ED is performed under the ED CLIA certificate #[id number]. Result Comment: [email or web address] Performed By: #### L [id number] #### [facility] ([facility]) [address] [place] [address] Glucose [Mass/Vol] 89 mg/dL Normal 70-105 [facility] Comment on above: Order Comment: Waive d Testing in the ED is performed under the ED CLIA certificate #[id number]. Result Comment: [email or web address] Performed By: #### L [id number] #### [facility] ([facility]) [address] [place] [address] 30on 01-16-2025 30 The patient is Moderately Stable - Low risk of patient condition declining or worsening The patient's goals for the shift include pain control The clinical goals for the shift include maintain hemodynamic stability Over the shift, the patient did not make progress toward the following goals. Barriers to progression include chest pain. Recommendations to address these barriers include emotional support, repositioning, music therapy, distraction. Normal [facility] BLOOD CULTUREon 01-16-2025 Bacteria identified Cx Nom (Bld) No growth at 5 days Normal [facility] Comment on above: Order Comment: From a different site than #1. Performed By: #### L [id number] ####[facility] ([facility])[address] [place] [address] CBC WITH AUTO DIFFERENTIALon 01-16-2025 Basophils (Bld) [#/Vol] 0.02 10*3/uL Normal 0.00-0.20 [facility] Comment on above: Performed By: #### L [id number] #### [facility] ([facility]) [address] [place] [address] Basophils/100 WBC (Bld) 0.3 % Normal 0.0-1.0 [facility] Comment on above: Performed By: #### L [id number] #### [facility] ([facility]) [address] [place] [address] Eosinophils (Bld) [#/Vol] 0.23 10*3/uL Normal 0.00-0.50 [facility] Comment on above: Performed By: #### L [id number] #### [facility] ([facility]) [address] [place] [address] Eosinophils/100 WBC (Bld) 3.6 % Normal 0.0-6.0 [facility] Comment on above: Performed By: #### L [id number] #### [facility] ([facility]) [address] [place] [address] Erythrocyte distribution width (RBC) [Ratio] 14.8 % Normal 11.5-15.0 [facility] Comment on above: Performed By: #### L [id number] #### [facility] ([facility]) [address] [place] [address] ERYTHROCYTE MEAN CORPUSCULAR HEMOGLOBIN CONCENTRATION (G/DL) BY AUTOMATED 32.4 g/dL Normal 32.0-35.0 [facility] Comment on above: Performed By: #### L [id number] #### [facility] ([facility]) [address] [place] [address] Hematocrit (Bld) [Volume fraction] 43.5 % Normal 36.0-50.0 [facility] Comment on above: Performed By: #### L [id number] #### [facility] ([facility]) [address] [place] [address] Hemoglobin (Bld) [Mass/Vol] 14.1 g/dL Normal 12.0-17.0 [facility] Comment on above: Performed By: #### L [id number] #### [facility] ([facility]) [address] [place] [address] Immature granulocytes (Bld) [#/Vol] 0.02 10*3/uL Normal 0.00-0.20 [facility] Comment on above: Performed By: #### L [id number] #### [facility] ([facility]) [address] [place] [address] Immature granulocytes/100 WBC (Bld) 0.3 % Normal 0.0-1.0 [facility] Comment on above: Performed By: #### L [id number] #### [facility] ([facility]) [address] [place] [address] Lymphocytes (Bld) [#/Vol] 1.86 10*3/uL Normal 1.20-4.00 [facility] Comment on above: Performed By: #### L [id number] #### [facility] ([facility]) [address] [place] [address] Lymphocytes/100 WBC (Bld) 28.8 % Normal 20.0-45.0 [facility] Comment on above: Performed By: #### L [id number] #### [facility] ([facility]) [address] [place] [address] MCH (RBC) [Entitic mass] 27.3 pg Normal 27.0-33.0 [facility] Comment on above: Performed By: #### L [id number] #### [facility] ([facility]) [address] [place] [address] MCV (RBC) [Entitic vol] 84.1 fL Normal 82.0-98.0 [facility] Comment on above: Performed By: #### L [id number] #### [facility] ([facility]) [address] [place] [address] Monocytes (Bld) [#/Vol] 0.54 10*3/uL Normal 0.10-1.00 [facility] Comment on above: Performed By: #### L [id number] #### [facility] ([facility]) [address] [place] [address] Monocytes/100 WBC (Bld) 8.4 % Normal 5.0-12.0 [facility] Comment on above: Performed By: #### L [id number] #### [facility] ([facility]) [address] [place] [address] Neutrophils (Bld) [#/Vol] 3.78 10*3/uL Normal 1.60-7.60 [facility] Comment on above: Performed By: #### L [id number] #### [facility] ([facility]) [address] [place] [address] Neutrophils/100 WBC (Bld) 58.6 % Normal 40.0-72.0 [facility] Comment on above: Performed By: #### L [id number] #### [facility] ([facility]) [address] [place] [address] NRBC (PER 100 WBCS) BY AUTOMATED COUNT 0.0 % Normal 0 [facility] Comment on above: Performed By: #### L [id number] #### [facility] ([facility]) [address] [place] [address] PLATELETS (10*3/UL) IN BLOOD AUTOMATED COUNT 215 10*3/uL Normal 150-400 [facility] Comment on above: Performed By: #### L [id number] #### [facility] ([facility]) [address] [place] [address] RBC (Bld) [#/Vol] 5.17 10*6/uL Normal 3.80-5.70 [facility] Comment on above: Performed By: #### L [id number] #### [facility] ([facility]) [address] [place] [address] WBC (Bld) [#/Vol] 6.45 10*3/uL Normal 4.00-10.60 [facility] Comment on above: Performed By: #### L [id number] #### [facility] ([facility]) [address] [place] [address] COMPREHENSIVE METABOLIC PANE Renny 01-16-2025 Albumin [Mass/Vol] 3.8 g/dL Normal 3.5-5.7 [facility] Comment on above: Performed By: #### L [id number] #### [facility] ([facility]) [address] [place] [address] ALP [Catalytic activity/Vol] 47 U/L Normal 34-104 [facility] Comment on above: Performed By: #### L [id number] #### [facility] ([facility]) [address] [place] [address] ALT [Catalytic activity/Vol] 21 U/L Normal 7-52 [facility] Comment on above: Performed By: #### L [id number] #### [facility] ([facility]) [address] [place] [address] Anion gap [Moles/Vol] 10 mmol/L Normal 7-20 [facility] Comment on above: Performed By: #### L [id number] #### [facility] ([facility]) [address] [place] [address] AST [Catalytic activity/Vol] 18 U/L Normal 13-39 [facility] Comment on above: Performed By: #### L [id number] #### [facility] ([facility]) [address] [place] [address] Bilirubin [Mass/Vol] 0.8 mg/dL Normal 0.3-1.0 [facility] Comment on above: Performed By: #### L [id number] #### [facility] ([facility]) [address] [place] [address] Calcium [Mass/Vol] 8.3 mg/dL Low 8.6-10.3 [facility] Comment on above: Performed By: #### L [id number] #### [facility] ([facility]) [address] [place] [address] Chloride [Moles/Vol] 111 mmol/L High 98-107 [facility] Comment on above: Performed By: #### L [id number] #### [facility] ([facility]) [address] [place] [address] CO2 [Moles/Vol] 22 mmol/L Normal 21-31 [facility] Comment on above: Performed By: #### L [id number] #### [facility] ([facility]) [address] [place] [address] Creatinine [Mass/Vol] 1.12 mg/dL Normal 0.60-1.30 [facility] Comment on above: Performed By: #### L [id number] #### [facility] ([facility]) [address] [place] [address] GLOMERULAR FILTRATION RATE ML/MIN/1.73 SQ M.PREDICTED 57.4 mL/min/1.73m*2 Low >60.0 [facility] Comment on above: Result Comment: [facility]???s estimated glomerular filtration rate (eGFR) [...] group of individuals. Performed By: #### L [id number] #### [facility] ([facility]) [address] [place] [address] Glucose [Mass/Vol] 97 mg/dL Normal 70-100 [facility] Comment on above: Performed By: #### L [id number] #### [facility] ([facility]) [address] [place] [address] Potassium [Moles/Vol] 4.1 mmol/L Normal 3.5-5.1 [facility] Comment on above: Performed By: #### L [id number] #### [facility] ([facility]) [address] [place] [address] Protein [Mass/Vol] 5.9 g/dL Low 6.0-8.3 [facility] Comment on above: Performed By: #### L [id number] #### [facility] ([facility]) [address] [place] [address] Sodium [Moles/Vol] 139 mmol/L Normal 136-145 [facility] Comment on above: Performed By: #### L [id number] #### [facility] ([facility]) [address] [place] [address] Urea nitrogen [Mass/Vol] 16 mg/dL Normal 7-25 [facility] Comment on above: Performed By: #### L [id number] #### [facility] ([facility]) [address] [place] [address] UREA NITROGEN/CREATININE (MASS RATIO) IN SER/PLAS 14.3 Normal [facility] Comment on above: Performed By: #### L [id number] #### [facility] ([facility]) [address] [place] [address] CONSULTon 01-16-2025 CONSULT Cardiology Consult Note Reason for Consult: bradycardia, chest pain HPI: Flynn Arnett is a 59 y.o. adult with a past medical history heart failure with preserved ejection fraction, hypertension, severe MR s/p mitral valve repair/annuloplasty, left atrial appendage clip, PFO closure, hyperlipidemia, AAA, DM2 who presents as a transfer from [facility]. Patient reports left-sided chest pain which started on Thursday afternoon when he was cleaning his barn. Patient was carrying heavy weights and walking when he had sudden onset of chest pain that was 7 out of 10 intensity and felt like squeezing in nature radiating down his left arm and his back. He said chest pain has been ongoing for the past few months. Is worse when he exerts himself or walks up a flight of stairs and resolves with rest. He also endorses associated palpitations, shortness of breath with exertion, lightheadedness, dizziness. Denies lower extremity edema, orthopnea, PND. Says he may have sleep apnea but was never tested for it. He denies ever having any tobacco use. He did have a cardiac cath in February 2023 which showed nonobstructive CAD. At thattime his cath was done for preop evaluation for his mitral valve. Patient presented to [facility] with these complaints and was found to have heart rate 165 bpm and he was found to have atrial fibrillation with rapid ventricular response. Patient says he was given some medication (possibly Cardizem) to control his heart rate, which brought his heart rate to his baseline of around 50s. However, on 01/16, his heart rate dropped down even further to 20 to 30 bpm. He was transferred to [facility] for higher level of care. At [facility], his heart rate was at his baseline of 50s. His EKG showed sinus bradycardia. BP 117/76, on room air. Labs showed potassium 4.1, creatinine 1.12, GFR 57, at bedtime troponin 55, LDL 116, hemoglobin 14. Cardiology was consulted for management of bradycardia and chest pain. Cardiology ROS: Negative except as mentioned. Past Medical History Flynn has a past medical history of GERD (gastroesophageal reflux disease), Hyperlipidemia, Hypertension, and Mitral valve prolapse (04/2023). Surgical History Flynn has a past surgical history that includes Cardiac catheterization (Bilateral, 04/2023). Social History Flynn reports that Flynn has never smoked. Flynn has never used smokeless tobacco. Flynn reports that Flynn does not currently use alcohol. No history on file for drug use. Family History Family History Problem Relation Name Age of Onset No Known Problems Mother No Known Problems Father Allergies Patient has no known allergies. Medications Current Outpatient Medications Medication Instructions aspirin 81 mg, oral, Daily baclofen (Lioresal) 20 mg tablet oral, 3 times daily carvedilol (COREG) 3.125 mg, oral, 2 times daily with meals carvedilol (COREG) 3.125 mg, oral, 2 times daily with meals dapagliflozin propanediol (FARXIGA) 10 mg, oral, Daily empagliflozin (JARDIANCE) 10 mg, oral, Daily ezetimibe (ZETIA) 10 mg, oral, Daily furosemide (Lasix) 20 mg tablet Take 1/2 tablet daily gabapentin (NEURONTIN) 200 mg, oral, 2 times daily HYDROcodone-acetaminop hen (Sebewaing) 5-325 mg tablet 1 tablet, oral, Every 4 hours PRN lisinopril 10 mg, oral, Daily lisinopril 10 mg, oral, Daily metFORMIN (GLUCOPHAGE) 500 mg, oral, Daily with breakfast pantoprazole (PROTONIX) 40 mg, oral, Daily before breakfast simvastatin (ZOCOR) 20 mg, oral, Nightly tiZANidine (Zanaflex) 4 mg tablet TAKE 2 TABLETS BY MOUTH EVERY EVENING NEEDED Medications Prior to Admission Medication Sig Dispense Refill Last Dose aspirin 81 mg EC tablet Take 81 mg by mouth in the morning. baclofen (Lioresal) 20 mg tablet Take by mouth in the morning, at noon, and at bedtime. carvedilol (Coreg) 3.125 mg tablet Take 1 tablet (3.125 mg) by mouth with breakfast and with evening meal. (Patient not taking: Reported on 04/15/2024) 180 tablet 3 carvedilol (Coreg) 3.125 mg tablet Take 1 tablet (3.125 mg) by mouth with breakfast and with evening meal. 180 tablet 3 dapagliflozin propanediol (Farxiga) 10 mg Take 1 tablet (10 mg) by mouth in the morning. 90 tablet 3 empagliflozin (Jardiance) 10 mg Take 1 tablet (10 mg) by mouth in the morning. (Patient not taking: Reported on 04/15/2024) 90 tablet 3 ezetimibe (Zetia) 10 mg tablet Take 1 tablet (10 mg) by mouth in the morning. (Patient taking differently: Take 5 mg by mouth in the morning.) 30 tablet 0 furosemide (Lasix) 20 mg tablet Take 1/2 tablet daily 90 tablet 3 gabapentin (Neurontin) 100 mg capsule Take 2 capsules (200 mg) by mouth in the morning and at bedtime. (Patient not taking: Reported on 06/30/2023) 120 capsule 0 HYDROcodone-acetaminop hen (Sebewaing) 5-325 mg tablet Take 1 tablet by mouth every 4 (four) hours if needed. lisinopril 10 mg tablet Take 1 tablet (10 mg) by mouth in the morning. (Patient taking differ (more content not included)... Normal [facility] HEMOGLOBIN A1Con 01-16-2025 Glucose [Mass/Vol] 143 mg/dL [facility] Comment on above: Performed By: #### L [id number] #### [facility] ([facility]) [address] [place] [address] HbA1c (Bld) [Mass fraction] 6.6 % High 4.0-6.0 [facility] Comment on above: Performed By: #### L [id number] #### [facility] ([facility]) [address] [place] [address] HIGH SENSITIVITY TROPONIN Io n 01-16-2025 HS TROPONIN I (NG/L) 54 ng/L Critically high <18 [facility] [facility] Comment on above: Performed By: #### L [id number] #### [facility] ([facility]) [address] [place] [address] HS TROPONIN I (NG/L) 55 ng/L Critically high <18 [facility] Comment on above: Performed By: #### L [id number] #### [facility] ([facility]) [address] [place] [address] HPon 01-16-2025 Reason For Consult chest pain, sinus leann, new onset afib Referring Provider: Lauren Velasquez MD, [facility] History Of Present Illness Flynn Arnett is a 59 y.o. adult presenting with bradycardia and chest pain. He states for several months now he has been limited physically, especially while climbing stairs He can do 5-10 and then has to stop due to SOB and chest discomfort that is non-radiating, mild in severity, and relieved with rest. In [facility] ER, above noted and he was significantly bradycardic. Of note, in 2022 he underwent mitral valve replacement at that time coronary arteries were normal. Past Medical History Flynn has a past medical history of GERD (gastroesophageal reflux disease), Hyperlipidemia, Hypertension, and Mitral valve prolapse (04/2023). Surgical History Flynn has a past surgical history that includes Cardiac catheterization (Bilateral, 04/2023). Family History Family History Problem Relation Name Age of Onset No Known Problems Mother No Known Problems Father Social History Flynn reports that Flynn has never smoked. Flynn has never used smokeless tobacco. Flynn reports that Flynn does not currently use alcohol. No history on file for drug use. Allergies Patient has no known allergies. Medications Medications Prior to Admission Medication Sig Dispense Refill Last Dose aspirin 81 mg EC tablet Take 81 mg by mouth in the morning. baclofen (Lioresal) 20 mg tablet Take by mouth in the morning, at noon, and at bedtime. carvedilol (Coreg) 3.125 mg tablet Take 1 tablet (3.125 mg) by mouth with breakfast and with evening meal. (Patient not taking: Reported on 04/15/2024) 180 tablet 3 carvedilol (Coreg) 3.125 mg tablet Take 1 tablet (3.125 mg) by mouth with breakfast and with evening meal. 180 tablet 3 dapagliflozin propanediol (Farxiga) 10 mg Take 1 tablet (10 mg) by mouth in the morning. 90 tablet 3 empagliflozin (Jardiance) 10 mg Take 1 tablet (10 mg) by mouth in the morning. (Patient not taking: Reported on 04/15/2024) 90 tablet 3 ezetimibe (Zetia) 10 mg tablet Take 1 tablet (10 mg) by mouth in the morning. (Patient taking differently: Take 5 mg by mouth in the morning.) 30 tablet 0 furosemide (Lasix) 20 mg tablet Take 1/2 tablet daily 90 tablet 3 gabapentin (Neurontin) 100 mg capsule Take 2 capsules (200 mg) by mouth in the morning and at bedtime. (Patient not taking: Reported on 06/30/2023) 120 capsule 0 HYDROcodone-acetaminop hen (Sebewaing) 5-325 mg tablet Take 1 tablet by mouth every 4 (four) hours if needed. lisinopril 10 mg tablet Take 1 tablet (10 mg) by mouth in the morning. (Patient taking differently: Take 5 mg by mouth in the morning.) 90 tablet 3 lisinopril 10 mg tablet Take 1 tablet [...] 2 TABLETS BY MOUTH EVERY EVENING NEEDED [facility] Medications Medication Dose Route Frequency Last Admin aspirin 81 mg oral Daily 81 mg at 01/16/25 190 glucose 24 g oral q15 min PRN Or dextrose 50 % in water (D50W) 25 g intravenous q15 min PRN ezetimibe 10 mg oral Daily 10 mg at 01/16/25 1905 insulin lispro 0-5 Units subcutaneous TID with meals And insulin lispro 0-4 Units subcutaneous Nightly simvastatin 20 mg oral Nightly sodium chloride 10 mL intravenous q8h PRN Last Recorded Vitals Patient Vitals for the past 24 hrs: BP Temp Temp src Pulse Resp SpO2 Height Weight 01/16/25 1900 -- -- -- 62 16 96 % -- -- 01/16/25 1800 123/71 -- -- 51 20 96 % -- -- 01/16/25 1700 118/76 -- -- 61 (!) 30 95 % -- -- 01/16/25 1600 125/79 -- -- 54 14 97 % -- -- 01/16/25 1500 116/70 -- -- (!) 48 (!) 7 96 % -- -- 01/16/25 1449 -- -- -- -- -- -- -- 101 kg (221 lb 9 oz) 01/16/25 1440 117/76 36.9 ???C (98.5 ???F) Temporal 50 13 97 % -- -- 01/16/25 1400 -- -- -- -- -- -- 1.753 m (5' 9.02 ) -- Physical Exam Alert male, no distress Vital signs as above JVP not visualized, Carotid 2+ bilaterally Lungs clear to auscultation No cardiac murmurs, pulse slow with ectopy Cardiac sounds distant No pitting edema in Legs Abdomen soft Relevant Results Admission on 01/16/2025 Component Date Value Ref Range Status Ventricular Rate 01/16/2025 49 BPM Final Atrial Rate 01/16/2025 49 BPM Final MI Interval 01/16/2025 190 ms Final QRS DURATION 01/16/2025 84 ms Final QT Interval 01/16/2025 480 ms Final QTC CALCULATION(BAZETT) 01/16/2025 433 ms Final R-Wallis 01/16/2025 47 degrees Final T Wave Wallis 01/16/2025 71 degrees Final Sodium 01/16/2025 139 136 - 145 mmol/L Final Potassium 01/16/2025 4.1 3.5 - 5.1 mmol/L Final Chloride 0 (more content not included)... Normal [facility] -- Attestation signed by Champ Caceres MD at 01/17/2025 10:12 AM The patient was evaluated with the resident/fellow Flynn Arnett is a 59 y.o. adult with a past medical history of heart failure with preserved ejection fraction, hypertension, mitral valve prolapse with regurgitation s/p mitral valve repair, hyperlipidemia, fgs-uqyhlfi-lvoynqcqw type 2 diabetes, AAA who presents as a transfer from [facility] for chest pain Critical Care services were required for the patient due to critical condition: Severe Bradycardia down to 20/30/minutes requiring Inotrope Afib with RVR Unstable Angina CHFpEF MVR s/p repair HTN DM2 I personally provided direct critical care services consisting of: Admit to ICU, Dopamine drip to keep HR>50 Hold Coreg Cardiology consulted for cath and pacemaker Heparin drip F/U cardiac enzymes ASA and Liptor Check Thyroid panel DVT and GI prophylaxis Critical Care minutes were 35, which excludes time performing separately billed procedures, updating family, and teaching. Medical ICU History & Physical Patient - Flynn Arnett Age - 59 [facility] 1965 [id number] Date of Admission - 01/16/2025 2:24 PM Chief Complaint History of Present Illness Flynn Arnett is a 59 y.o. adult with a past medical history of heart failure with preserved ejection fraction, hypertension, mitral valve prolapse with regurgitation s/p mitral valve repair, hyperlipidemia, fpw-bnpcpyh-zmhrnwyax type 2 diabetes, AAA who presents as a transfer from [facility]. Patient developed left lower chest pain yesterday, associated with shortness of breath. He says that he has been dealing with chest pains for quite a while but this episode was worse than his usual. 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 He also had shortness of breath and dizziness with this episode. Also had racing heartbeat. He went to the [facility] with these complaints, where reportedly his heart rate was as high as 165 bpm and he was found to have atrial fibrillation with rapid ventricular response. Patient says he was given some medication (possibly Cardizem) to control his heart rate, which brought his heart rate to his baseline of around 50s. However, on 01/16, his heart rate dropped down even further to 20 to 30 bpm. He was transferred to [facility] for higher level of care. At [facility], his heart rate was at his baseline of 50s. His EKG showed sinus bradycardia. Upon evaluation here, he says that his chest pain had subsided to 2-3 out of 10. Saturating normally on room air. He says that he has chronic bradycardia, and has been dealing with chest pain, shortness of breath and dizziness for the past few months. His last cardiac catheterization was in February 2023 which showed angiographically normal coronaries. He has been on low-dose Coreg at home. His CMP and CBC were unremarkable. PMH: has a past medical history of GERD (gastroesophageal reflux disease), Hyperlipidemia, Hypertension, and Mitral valve prolapse (04/2023). PSH: has a past surgical history that includes Cardiac catheterization (Bilateral, 04/2023). SH: reports that Flynn has never smoked. Flynn has never used smokeless tobacco. Flynn reports that Flynn does not currently use alcohol. Alc/Tobacco/Drug: reports that Flynn does not currently use alcohol. reports that Flynn has never smoked. Flynn has never used smokeless tobacco. has no history on file for drug use. Medications: Current Facility-Administered Medications: Insert peripheral IV, , , Once AND Saline lock IV, , , Once AND sodium chloride flush 10 mL, 10 mL, intravenous, q8h PRN, Monica Brown MD Allergies: Patient has no known allergies. Family history: family history includes No Known Problems in Flynn's father and mother. Review of Systems: [facility] Physical Exam Ht Readings from Last 1 Encounters: 01/16/25 1.753 m (5' 9.02 ) Wt Readings from Last 1 Encounters: 01/16/25 101 kg (221 lb 9 oz) height is 1.753 m (5' 9.02 ) and weight is 101 kg (221 lb 9 oz). Flynn's temporal temperature is 36.9 ???C (98.5 ???F). Flynn's blood pressure is 116/70 and Flynn's pulse is 48 (abnormal). Flynn's respiration is 7 (abnormal) and oxygen saturation is 96%. No intake or output data in the 24 hours ending 01/16/25 1601 General: No acute distress HEENT: Normocephalic, atraumatic, EOMI, no scleral icterus or erythema Neck: Supple, trachea midline, no masses noted Cardiovascular: Bradycardia with normal sinus rhythm, normal S1-S2, no murmurs, no rubs, no peripheral edema Respiratory: No acute respiratory distress, clear to auscultation bilaterally, no wheezing, no rales Abdomen: Soft, nontender, (more content not included)... Normal [facility] LACTIC ACID WITH 4 HOUR REFL EXon 01-16-2025 LACTATE (MMOL/L) IN SER/PLAS 0.7 mmol/L Normal 0.5-2.2 [facility] Comment on above: Performed By: #### L [id number] #### [facility] ([facility]) [address] [place] [address] LIPID PANELon 01-16-2025 CHOL/HDL 5.3 mg/dL Normal [facility] Comment on above: Performed By: #### L [id number] #### [facility] ([facility]) [address] [place] [address] Cholesterol [Mass/Vol] 169 mg/dL Normal 120-200 [facility] Comment on above: Performed By: #### L [id number] #### [facility] ([facility]) [address] [place] [address] Magnesium [Mass/Vol] 103 mg/dL Normal <150 [facility] Comment on above: Result Comment: TRIG LYCERIDE REFERENCE RANGE: 20 YEARS AND OLDER CARDIOVASCULAR RISK LESS THAN 150 mg/dL LOW RISK 150 TO 199 mg/dL BORDERLINE RISK 200 mg/dL AND GREATER HIGH RISK Performed By: #### L [id number] #### [facility] ([facility]) [address] [place] [address] Magnesium [Mass/Vol] 116 mg/dL Normal 0-160 [facility] Comment on above: Performed By: #### L [id number] #### [facility] ([facility]) [address] [place] [address] Magnesium [Mass/Vol] 32 mg/dL Normal 23-92 [facility] Comment on above: Performed By: #### L [id number] #### [facility] ([facility]) [address] [place] [address] NON HDL CHOL. (LDL+VLDL) 137 Normal [facility] Comment on above: Performed By: #### L [id number] #### [facility] ([facility]) [address] [place] [address] TOTAL VLDL-C 21 mg/dL Normal 0-40 [facility] Comment on above: Performed By: #### L [id number] #### [facility] ([facility]) [address] [place] [address] POCT GLUCOSE METER UNSOLICIT ED RESULTSon 01-16-2025 Glucose [Mass/Vol] 105 mg/dL Normal 70-105 [facility] Comment on above: Order Comment: Waive d Testing in the ED is performed under the ED CLIA certificate #[id number]. Result Comment: pmen doz Performed By: #### L [id number] #### [facility] ([facility]) [address] [place] [address] Glucose [Mass/Vol] 124 mg/dL High 70-105 [facility] Comment on above: Order Comment: Waive d Testing in the ED is performed under the ED CLIA certificate #[id number]. Result Comment: tdel p Performed By: #### L [id number] #### [facility] ([facility]) [address] [place] [address] TSHon 01-16-2025 THYROTROPIN (MIU/L) IN SER/PLAS BY DETECTION LIMIT <= 0.05 MIU/L 1.64 mIU/L Normal 0.34-5.60 [facility] Comment on above: Performed By: #### L [id number] #### [facility] H[facility] ([facility]) [address] [place] [address] Office Visiton 12-06-2024 Follow-up visit [id number] Watson Arnett M 1965 M Date Provider Department Center 12/06/2024 [facility] Family History Problem Relation Age of Onset No Known Problems Mother No Known Problems Father Family Status - Relation Status Age at Mother Father Level of Service:30456 [place] OFFICE/OUTPATIENT ESTABLISHED MOD MDM 30 MIN Normal [facility] Office Visiton 10-27-2024 Follow-up visit [id number] Watson Arnett M 1965 M Date Provider Department Center 10/27/2024 [facility] Family History Problem Relation Age of Onset No Known Problems Mother No Known Problems Father Family Status - Relation Status Age at Mother Father Level of Service:55831 MI OFFICE/OUTPATIENT ESTABLISHED MOD MDM 30 MIN Normal [facility] Office Visiton 04-15-2024 Follow-up visit [id number] Watson Arnett M 1965 M Date Provider Department Center 04/15/2024 [facility] Family History Problem Relation Age of Onset No Known Problems Mother No Known Problems Father Family Status - Relation Status Age at Mother Father Level of Service:77909 [place] OFFICE/OUTPATIENT ESTABLISHED MOD MDM 30 MIN Normal [facility] CBC AUTO DIFFon 02-06-2023 BASO # 0.0 103/ul Normal 0.0-0.1 [facility] Comment on above: Performed By: #### C BC #### [facility] [address] [address] [address] John Bertrand Basophils/100 WBC (Bld) 0.4 % Normal 0.2-2.0 [facility] Comment on above: Performed By: #### C BC #### [facility] [address] [address] [address] John Bertrand EO # 0.2 103/ul Normal 0.0-0.7 [facility] Comment on above: Performed By: #### C BC #### [facility] [address] [place] [address] Dr. John Bertrand Eosinophils/100 WBC (Bld) 3.1 % Normal 0.9-7.0 [facility] Comment on above: Performed By: #### C BC #### [facility] [address] [place] [address] Dr. John Bertrand Erythrocyte distribution width (RBC) [Ratio] 13.9 % Normal 11.0-15.0 [facility] Comment on above: Performed By: #### C BC #### [facility] [address] [place] [address] Dr. John Bertrand Hematocrit (Bld) [Volume fraction] 43.8 % Normal 42.0-54.0 [facility] Comment on above: Performed By: #### C BC #### [facility] [address] [place] [address] Dr. John Bertrand Hemoglobin (Bld) [Mass/Vol] 14.4 g/dL Normal 14.0-18.0 [facility] Comment on above: Performed By: #### C BC #### [facility] [address] [place] [address] Dr. John Bertrand IG # 0.01 10e3/ul Normal 0.00-0.03 [facility] Comment on above: Performed By: #### C BC #### [facility] [address] [place] [address] Dr. John Bertrand IG % 0.2 % Normal 0.0-0.5 [facility] Comment on above: Performed By: #### C BC #### [facility] [address] [place] [address] Dr. John Bertrand LYMPH # 2.3 103/ul Normal 1.2-3.8 [facility] Comment on above: Performed By: #### C BC #### [facility] [address] [place] [address] Dr. John Bertrand Lymphocytes/100 WBC (Bld) 41.1 % Normal 20.5-60.0 [facility] Comment on above: Performed By: #### C BC #### [facility] [address] [place] [address] Dr. John Bertrand MANUAL DIFF REQ NO Normal [facility] Comment on above: Performed By: #### C BC #### [facility] [address] [place] [address] Dr. John Bertrand MCH (RBC) [Entitic mass] 27.6 pg Normal 25.9-34.0 [facility] Comment on above: Performed By: #### C BC #### [facility] [address] [place] [address] Dr. John Bertrand MCHC (RBC) [Mass/Vol] 32.9 g/dL Normal 29.9-35.2 [facility] Comment on above: Performed By: #### C BC #### [facility] [address] [place] [address] Dr. John Bertrand MCV (RBC) [Entitic vol] 83.9 fL Normal 80.0-94.0 [facility] Comment on above: Performed By: #### C BC #### [facility] [address] [place] [address] Dr. John Bertrand MONO # 0.5 103/ul Normal 0.3-0.8 [facility] Comment on above: Performed By: #### C BC #### [facility] [address] [place] [address] Dr. John Bertrand Monocytes/100 WBC (Bld) 9.0 % Normal 1.7-12.0 [facility] Comment on above: Performed By: #### C BC #### [facility] [address] [place] [address] Dr. John Bertrand NEUT # 2.5 103/ul Normal 1.4-6.5 [facility] Comment on above: Performed By: #### C BC #### [facility] [address] [place] [address] Dr. John Bertrand Neutrophils/100 WBC (Bld) 46.2 % Normal 43.0-75.0 [facility] Comment on above: Performed By: #### C BC #### [facility] [address] [address] [address] John Bertrand Platelet mean volume (Bld) [Entitic vol] 9.6 fL Normal 9.5-13.5 [facility] Comment on above: Performed By: #### C BC #### [facility] [address] [place] [address] Dr. John Bertrand PLT 223 103/ul Normal 150-450 [facility] Comment on above: Performed By: #### C BC #### [facility] [address] [address] [address] John Bertrand RBC 5.22 106/ul Normal 4.70-6.10 [facility] Comment on above: Performed By: #### C BC #### [facility] [address] [place] [address] Dr. John Bertrand WBC 5.5 103/ul Normal 4.0-11.0 [facility] Comment on above: Performed By: #### C BC #### [facility] [address] [place] [address] Dr. John Bertrand PROF CHEM 8 (BAS METB)on Anion gap [Moles/Vol] 9.3 mmol/L Normal [facility] Comment on above: Performed By: #### B MP #### [facility] [address] [place] [address] Dr. John Bertrand Calcium [Mass/Vol] 8.7 mg/dL Normal 8.5-10.1 [facility] Comment on above: Performed By: #### B MP #### [facility] [address] [place] [address] Dr. John Bertrand Chloride [Moles/Vol] 105 mmol/L Normal 98-107 [facility] Comment on above: Performed By: #### B MP #### [facility] [address] [place] [address] Dr. John Bertrand CO2 [Moles/Vol] 27.6 mmol/L Normal 21.0-32.0 [facility] Comment on above: Performed By: #### B MP #### [facility] [address] [address] [address] John Bertrand Creatinine [Mass/Vol] 1.28 mg/dL Normal 0.70-1.30 [facility] Comment on above: Performed By: #### B MP #### [facility] [address] [address] [address] John Bertrand EGFR-AF CANADIAN >60 Normal >=60 [facility] Comment on above: Performed By: #### B MP #### [facility] [address] [address] [address] John Bertrand EGFR-NON AF CANADIAN 58 mL/min/1.73m2 Critically low >=60 [facility] Comment on above: Performed By: #### B MP #### [facility] [address] [address] [address] John Bertrand Glucose [Mass/Vol] 137 mg/dL Critically high 74-106 [facility] Comment on above: Performed By: #### B MP #### [facility] [address] [place] [address] Dr. John Bertrand Potassium [Moles/Vol] 3.9 mmol/L Normal 3.5-5.1 [facility] Comment on above: Performed By: #### B MP #### [facility] [address] [address] [address] John Bertrand Sodium [Moles/Vol] 138 mmol/L Normal 136-145 [facility] Comment on above: Performed By: #### B MP #### [facility] [address] [address] [address] John Bertrand Urea nitrogen [Mass/Vol] 16.0 mg/dL Normal 7.0-18.0 [facility] Comment on above: Performed By: #### B MP #### [facility] [address] [place] [address] Dr. John Bertrand Urea nitrogen/Creatinine [Mass ratio] 12.5 mg/mg Normal [facility] Comment on above: Performed By: #### B MP #### [facility] [address] [address] [address] John Bertrand CBC AUTO DIFFon 01-14-2023 BASO # 0.0 103/ul Normal 0.0-0.1 [facility] Comment on above: Performed By: #### C BC #### [facility] [address] [place] [address] Dr. John Bertrand Basophils/100 WBC (Bld) 0.6 % Normal 0.2-2.0 [facility] Comment on above: Performed By: #### C BC #### [facility] [address] [place] [address] Dr. John Bertrand EO # 0.1 103/ul Normal 0.0-0.7 [facility] Comment on above: Performed By: #### C BC #### [facility] [address] [place] [address] Dr. John Bertrand Eosinophils/100 WBC (Bld) 2.7 % Normal 0.9-7.0 [facility] Comment on above: Performed By: #### C BC #### [facility] [address] [place] [address] Dr. John Bertrand Erythrocyte distribution width (RBC) [Ratio] 13.9 % Normal 11.0-15.0 [facility] Comment on above: Performed By: #### C BC #### [facility] [address] [place] [address] Dr. John Bertrand Hematocrit (Bld) [Volume fraction] 44.8 % Normal 42.0-54.0 [facility] Comment on above: Performed By: #### C BC #### [facility] [address] [place] [address] Dr. John Bertrand Hemoglobin (Bld) [Mass/Vol] 14.8 g/dL Normal 14.0-18.0 [facility] Comment on above: Performed By: #### C BC #### [facility] [address] [place] [address] Dr. John Bertrand IG # 0.01 10e3/ul Normal 0.00-0.03 [facility] Comment on above: Performed By: #### C BC #### [facility] [address] [place] [address] Dr. John Bertrand IG % 0.2 % Normal 0.0-0.5 [facility] Comment on above: Performed By: #### C BC #### [facility] [address] [place] [address] Dr. John Bertrand LYMPH # 1.9 103/ul Normal 1.2-3.8 [facility] Comment on above: Performed By: #### C BC #### [facility] [address] [place] [address] Dr. John Bertrand Lymphocytes/100 WBC (Bld) 37.0 % Normal 20.5-60.0 [facility] Comment on above: Performed By: #### C BC #### [facility] [address] [place] [address] Dr. John Bertrand MANUAL DIFF REQ NO Normal [facility] Comment on above: Performed By: #### C BC #### [facility] [address] [place] [address] Dr. John Bertrand MCH (RBC) [Entitic mass] 27.2 pg Normal 25.9-34.0 [facility] Comment on above: Performed By: #### C BC #### [facility] [address] [place] [address] Dr. John Bertrand MCHC (RBC) [Mass/Vol] 33.0 g/dL Normal 29.9-35.2 [facility] Comment on above: Performed By: #### C BC #### [facility] [address] [place] [address] Dr. John Bertrand MCV (RBC) [Entitic vol] 82.4 fL Normal 80.0-94.0 [facility] Comment on above: Performed By: #### C BC #### [facility] [address] [place] [address] Dr. John Bertrand MONO # 0.5 103/ul Normal 0.3-0.8 [facility] Comment on above: Performed By: #### C BC #### [facility] [address] [place] [address] Dr. John Bertrand Monocytes/100 WBC (Bld) 8.8 % Normal 1.7-12.0 [facility] Comment on above: Performed By: #### C BC #### [facility] [address] [address] [address] John Bertrand NEUT # 2.7 103/ul Normal 1.4-6.5 [facility] Comment on above: Performed By: #### C BC #### [facility] [address] [address] [address] John Bertrand Neutrophils/100 WBC (Bld) 50.7 % Normal 43.0-75.0 [facility] Comment on above: Performed By: #### C BC #### [facility] [address] [place] [address] Dr. John Bertrand Platelet mean volume (Bld) [Entitic vol] 9.5 fL Normal 9.5-13.5 [facility] Comment on above: Performed By: #### C BC #### [facility] [address] [place] [address] Dr. John Bertrand PLT 235 103/ul Normal 150-450 [facility] Comment on above: Performed By: #### C BC #### [facility] [address] [place] [address] Dr. John Bertrand RBC 5.44 106/ul Normal 4.70-6.10 [facility] Comment on above: Performed By: #### C BC #### [facility] [address] [place] [address] Dr. John Bertrand WBC 5.3 103/ul Normal 4.0-11.0 [facility] Comment on above: Performed By: #### C BC #### [facility] [address] [address] [address] John Bertrand FREE THYROXINE INDEX T7on FTI 2.16 Normal 1.30-4.50 [facility] Comment on above: Performed By: #### T SH, CMP, T7, LIPID ####[facility] [address] [address]Dr. John Bertrand T3U 36.0 % Normal 33.0-40.0 [facility] Comment on above: Performed By: #### T SH, CMP, T7, LIPID ####[facility] [address] [id number]. John Bertrand T4 [Mass/Vol] 6.00 ug/dL Normal 4.50-12.10 [facility] Comment on above: Performed By: #### T SH, CMP, T7, LIPID ####[facility] [address] [id number] Bertrand GLYCOHEMOGLOBIN A1Con 2022 ADA RECOMMENDATION SEE BELOW Normal [facility] Comment on above: Result Comment: ADA RECOMMENDED LIMIT 4.0 - 6.0 ADA THERAPEUTIC TARGET < 7.0 ACTION SUGGESTED > 7.0 Performed By: #### A 1C #### [facility] [address] [address] [address] John Bertrand Glucose [Mass/Vol] 154 mg/dL Normal [facility] Comment on above: Performed By: #### A 1C #### [facility] [address] [address] [address] John Bertrand HbA1c (Bld) [Mass fraction] 7.0 % Critically high 4.5-6.2 [facility] Comment on above: Performed By: #### A 1C #### [facility] [address] [address] [address] John Bertrand LIPID PROFILEon 01-14-2023 CHOL-HDL RATIO NORM SEE BELOW Normal [facility] Comment on above: Result Comment: 3.3 - 4.4 LOW RISK 4.4 - 7.1 AVERAGE RISK 7.1 - 11.0 MODERATE RISK >11.0 HIGH RISK Performed By: #### T SH, CMP, T7, LIPID ####[facility] [address] [id number]. John Bertrand Cholesterol [Mass/Vol] 151 mg/dL Normal <=200 [facility] Comment on above: Performed By: #### T SH, CMP, T7, LIPID ####[facility] [address] [phone]. John Bertrand Cholesterol in HDL [Mass/Vol] 36 mg/dL Critically low 40-60 [facility] Comment on above: Performed By: #### T SH, CMP, T7, LIPID ####[facility] [address] [phone]. John Bertrand Cholesterol in LDL [Mass/Vol] 101.4 mg/dL Normal [facility] Comment on above: Performed By: #### T SH, CMP, T7, LIPID ####[facility] [address] [phone]. John Bertrand Cholesterol.total/Ch olesterol in HDL [Mass ratio] 4.2 {ratio} Normal [facility] Comment on above: Performed By: #### T SH, CMP, T7, LIPID ####[facility] [address] [address]Dr. John Bertrand HDL NORMAL > or = 60 mg/dl - LO W CARDIOVASCULAR RISK <40 mg/dl - HIGH CARDIOVASCULAR RISK Normal [facility] Comment on above: Performed By: #### T SH, CMP, T7, LIPID ####[facility] [address] [phone]. Nataliebrenda Bertrand LDL CALC NORMAL SEE BELOW Normal [facility] Comment on above: Result Comment: <100 mg/dl OPTIMAL 100 - 129 mg/dl NEAR OR ABOVE OPTIMAL 130 - 159 mg/dl BORDERLINE HIGH 160 - 189 mg/dl HIGH >190 mg/dl VERY HIGH Performed By: #### T SH, CMP, T7, LIPID ####[facility] [address] [phone]. John Bertrand Triglyceride [Mass/Vol] 68 mg/dL Normal <=150 [facility] Comment on above: Performed By: #### T SH, CMP, T7, LIPID ####[facility] [address] [phone]. Nataliebrenda Bertrand VLDL CALC 13.6 mg/dL Normal [facility] Comment on above: Performed By: #### T SH, CMP, T7, LIPID ####[facility] [address] [phone]. John Bertrand PROF 14(COMP METB)on 023 Albumin [Mass/Vol] 3.8 g/dL Normal 3.4-5.0 [facility] Comment on above: Performed By: #### T SH, CMP, T7, LIPID ####[facility] [address] [address]Dr. John Bertrand Albumin/Globulin [Mass ratio] 1.1 {ratio} Normal [facility] Comment on above: Performed By: #### T SH, CMP, T7, LIPID ####[facility] [address] [address]Dr. John Bertrand ALP [Catalytic activity/Vol] 71 U/L Normal 46-116 [facility] Comment on above: Performed By: #### T SH, CMP, T7, LIPID ####[facility] [address] [address]Dr. John Bertrand ALT [Catalytic activity/Vol] 80 U/L Critically high 16-63 [facility] Comment on above: Performed By: #### T SH, CMP, T7, LIPID ####[facility] [address] [address]Dr. John Bertrand Anion gap [Moles/Vol] 11.2 mmol/L Normal [facility] Comment on above: Performed By: #### T SH, CMP, T7, LIPID ####[facility] [address] [address]Dr. John Bertrand AST [Catalytic activity/Vol] 39 U/L Critically high 15-37 [facility] Comment on above: Performed By: #### T SH, CMP, T7, LIPID ####[facility] [address] [address]Dr. John Bertrand Bilirubin [Mass/Vol] 0.4 mg/dL Normal 0.2-1.0 [facility] Comment on above: Performed By: #### T SH, CMP, T7, LIPID ####[facility] [address] [address]Dr. John Bertrand Calcium [Mass/Vol] 9.2 mg/dL Normal 8.5-10.1 [facility] Comment on above: Performed By: #### T SH, CMP, T7, LIPID ####[facility] [address] [address]Dr. John Bertrand Chloride [Moles/Vol] 107 mmol/L Normal 98-107 [facility] Comment on above: Performed By: #### T SH, CMP, T7, LIPID ####[facility] [address] [address]Dr. John Bertrand CO2 [Moles/Vol] 26.8 mmol/L Normal 21.0-32.0 [facility] Comment on above: Performed By: #### T SH, CMP, T7, LIPID ####[facility] [address] [address]Dr. John Bertrand Creatinine [Mass/Vol] 1.21 mg/dL Normal 0.70-1.30 [facility] Comment on above: Performed By: #### T SH, CMP, T7, LIPID ####[facility] [address] [place], [place] [address]Dr. John Bertrand EGFR-AF CANADIAN >60 Normal >=60 [facility] Comment on above: Performed By: #### T SH, CMP, T7, LIPID ####[facility] [address] [address]Dr. John Bertrand EGFR-NON AF CANADIAN >60 Normal >=60 [facility] Comment on above: Performed By: #### T SH, CMP, T7, LIPID ####[facility] [address] [address]Dr. John Bertrand Globulin (S) [Mass/Vol] 3.5 g/dL Normal [facility] Comment on above: Performed By: #### T SH, CMP, T7, LIPID ####[facility] [address] [address]Dr. John Bertrand Glucose [Mass/Vol] 140 mg/dL Critically high 74-106 [facility] Comment on above: Performed By: #### T SH, CMP, T7, LIPID ####[facility] [address] [phone]. John Bertrand Potassium [Moles/Vol] 4.0 mmol/L Normal 3.5-5.1 [facility] Comment on above: Performed By: #### T SH, CMP, T7, LIPID ####[facility] [address] [phone]. John Bertrand Protein [Mass/Vol] 7.3 g/dL Normal 6.4-8.2 [facility] Comment on above: Performed By: #### T SH, CMP, T7, LIPID ####[facility] [address] [address]Dr. John Bertrand Sodium [Moles/Vol] 141 mmol/L Normal 136-145 [facility] Comment on above: Performed By: #### T SH, CMP, T7, LIPID ####[facility] [address] [address]Dr. John Bertrand Urea nitrogen [Mass/Vol] 11.0 mg/dL Normal 7.0-18.0 [facility] Comment on above: Performed By: #### T SH, CMP, T7, LIPID ####[facility] [address] [address]Dr. John Bertrand Urea nitrogen/Creatinine [Mass ratio] 9.1 mg/mg Normal [facility] Comment on above: Performed By: #### T SH, CMP, T7, LIPID ####[facility] [address] [address]Dr. John Bertrand TSHon 01-14-2023 TSH 1.532 uIU/mL Normal 0.358-3.740 [facility] Comment on above: Performed By: #### T SH, CMP, T7, LIPID ####[facility] [address] [address]Dr. John Bertrand Physician Referralon 023 Physician Referral [phone] [facility] [address] ABD/PELV W CONon 03-14-[address] ABD/PELV W CON EXAMINATION: CT [...] by: GLORIA STRANGE Date: 2022-12-16 09:20 Normal [facility] ECHOCARDIO M/2D COMPLETEon 0 12-16-2022 ECHOCARDIO M/2D COMPLETE Patient: FLYNN ARNETT Exam Date: 12/16/2022 : 1965 Gender:M Ordering : DR LAUREN VELASQUEZ . Admission #: [id number] Family : Order #: [id number] CLICK HERE TO VIEW EXAM ECHOCARDIOGRAM REPORT [...] M.D. on 12/16/2022 at 12:11 Normal [facility] Covid-19 PCR (CVDTBH)on SARS-CoV-2 (COVID-19) RNA THALIA+probe Ql (Unsp spec) Not detected Normal NOT DETECTED [facility] Comment on above: Result Comment: This test is not yet approved or cleared by the [place] FDA. When there are no FDA-approved or cleared tests available, and other criteria are met, FDA can make tests available under an emergency access mechanism called an Emergency Use Authorization (EUA). The EUA for this test is supported by the [place] of Health and Human Service's (HHS's) declaration [...] SARS-CoV-2. Performed By: #### C VDTBH #### [facility] [address] [place] [address] Dr. John Bertrand INFLUENZA A AND B AGon 03-06 INFLUANEGH SEE BELOW Normal [facility] Comment on above: Result Comment: Nega tive for Flu A protein angiten. Infection due to Flu A cannot be ruled out. Flu A angiten in the sample may be below the detection limit of the test. Performed By: #### I NFLUAB #### [facility] [address] [place] [address] Dr. John Bertrand [facility] SEE BELOW Normal [facility] Comment on above: Result Comment: Nega tive for Flu B protein antigen. Infection due to Flu B cannot be ruled out. Flu B antigen in the sample may be below the detection limit of the test. Performed By: #### I NFLUAB #### [facility] [address] [place] [address] Dr. John Bertrand INFLUENZA A AG Negative Normal NEGATIVE SEE COMMENT [facility] Comment on above: Performed By: #### I NFLUAB #### [facility] [address] [place] [address] Dr. John Bertrand INFLUENZA B AG Negative Normal NEGATIVE SEE COMMENT [facility] Comment on above: Performed By: #### I NFLUAB #### [facility] [address] [place] [address] Dr. John Bertrand INTERNAL CONTROLS Within Normal Limits Normal Wi thin Normal Limits [facility] Comment on above: Performed By: #### I NFLUAB #### [facility] [address] [place] [address] Dr. John Bertrand SYMPTOMATIC COVID-19 ANTIGEN on 03-06-2022 EUA Statement SEE BELOW Normal [facility] Comment on above: Result Comment: This [...] sooner. Performed By: #### C VDAGS #### [facility] [address] [place] [address] Dr. John Bertrand SARS-CoV-2 (COVID-19) RNA THALIA+probe Ql (Unsp spec) Negative Normal NEGATIVE [facility] Comment on above: Performed By: #### C VDAGS #### [facility] [address] [address] [address] John Bertrand Vital Signs Date Time Vital Sign Value Performing Clinician Facility 05-10-2023 09:20-0400 Body height 175.26 cm Monica Cardozamond Other [facility] Other 05-10-2023 09:20-0400 Body mass index (BMI) [Ratio] 33.96 kg/m2 Monica Cardozamond Other [facility] Other 05-10-2023 09:20-0400 Body temperature 99 [degF] Monica Jackson Other [facility] Other 05-10-2023 09:20-0400 Body weight 104.33 kg Monica Jackson Other [facility] Other 05-10-2023 09:20-0400 Diastolic blood pressure 102 mm[Hg] Monica Cardozamond Other [facility] Other 05-10-2023 09:20-0400 Respiratory rate 18 /min Monica Cardozamond Other [facility] Other 05-10-2023 09:20-0400 SaO2% (BldA) [Mass fraction] 97 % Monica Cardozamond Other [facility] Other 05-10-2023 09:20-0400 Systolic blood pressure 141 mm[Hg] Monica Cardozamond Other [facility] Other 01-09-2023 15:29-0400 Blood Pressure Location [facility] 01-09-2023 15:29-0400 Diastolic blood pressure 98 mm[Hg] [facility] L[facility]L [facility] 01-09-2023 15:29-0400 Heart rate 80 /min [facility]t NILL [facility] 01-09-2023 15:29-0400 Respiratory rate 16 /min [facility] N[facility] 01-09-2023 15:29-0400 Systolic blood pressure 146 mm[Hg] [facility]t NILL [facility] Encounters Encounter Date Encounter Type Care Provider Facility Start: 03-07-2025 End: 03-08-2025 ambulatory [facility] Start: 02-28-2025 ambulatory [facility] Start: 01-31-2025 End: 01-31-2025 ambulatory [facility] Start: 01-26-2025 ambulatory [facility] Start: 01-18-2025 Evaluation and manag ement of inpatient [facility] Start: 01-18-2025 Evaluation and manag ement of inpatient [facility] Start: 01-16-2025 Evaluation and manag ement of inpatient CHAMP JACOBOColton [facility] Start: 01-16-2025 End: 01-18-2025 Evaluation and management of inpatient LAUREN VELASQUEZ [facility] Start: 12-06-2024 End: 12-06-2024 ambulatory [facility] Start: 10-27-2024 End: 10-27-2024 ambulatory [facility] Start: 04-15-2024 End: 04-15-2024 ambulatory TANK PIERRE [facility] Start: 05-10-2023 End: 05-10-2023 ambulatory Monica Jackson Other [facility] Other Start: 05-10-2023 Office outpatient ne w 20 minutes Monica Jackson [facility] Start: 02-12-2023 Encounter for other preprocedural examination DR ADONIS WEBSTER [facility] Start: 02-12-2023 Encounter for preprocedural laboratory examination DR ADONIS WEBSTER [facility] Start: 02-06-2023 End: 02-07-[address] LAUREN VELASQUEZ . Facility:[facility] Start: 02-06-2023 End: 02-07-2023 Encounter for preprocedural laboratory examination DR LAUREN VELASQUEZ . Facility:[facility] Start: 01-20-2023 Encounter for genera l adult medical examination without abnormal findings DR LAUREN VELASQUEZ . [facility] Start: 01-14-2023 End: 01-15-[address] LAUREN VELASQUEZ . Facility: Start: 01-14-2023 End: 01-15-2023 Encounter for general adult medical examination without abnormal findings DR LAUREN VELASQUEZ . Facility: Start: 01-09-2023 End: 01-10-2023 ambulatory Colt STUART Facility:[facility] Start: 01-09-2023 End: 01-09-2023 Patient encounter procedure [facility] ST[facility] Start: 12-16-2022 End: 12-17-[address] LAUREN VELASQUEZ . Facility: Start: 03-06-2022 End: 03-06-[address] LAUREN VELASQUEZ . Facility: Procedures Date Procedure Procedure Detail Performing Clinician Start: 01-14-2023 PSA screening MONICA SANTOS Comment on above: Performed By: #### P [facility] #### [facility] [address] [place] [address] Dr. John Bertrand Open reduction of fracture with internal fixation Colt STUART Comment on above: right arm Immunizations Immunization Date Immunization Notes Care Provider Fa cility NEGATED: Highlighted row has not occurred!01-09-2023 influenza virus vaccine, unspecified formulation Colt STUART [facility] NEGATED: Highlighted row has not occurred!01-09-2023 SARS-CoV-2 mRNA (tomirthalis 5y-11y) vaccine Colt MYERSEmily [facility] Payers Date Payer Category Payer Unknown [id number] 1965 Unknown [id number] 2.16.8 [id number] 1965 Unknown [id number] 2.16.84 [id number] 1965 Unknown [id number] 2.16.84 [id number] 1965 Unknown [id number] 2.16.84 [id number] 1965 Unknown [id number] 2.16.84 [id number] 1965 Unknown [id number] 2.16.84 [id number] 1957 Self-pay [id number] 1957 Unknown [id number] 1957 Unknown [id number] Social History Date Type Detail Facility Start: 01-09-2023 Tobacco smoking status Never s moked tobacco (finding) [facility] Tobacco smoking status Never [facility] Sex Assigned At Male [facility] Functional Status Date Assessment Result Facility 01-09-2023 Functional Status N/A [facility] Clinical Notes 12-18-2022 to 03-07-2025 Note Date & Type Note Facility 03-07-2025 Note [facility] Electrophysiology Consult Note [facility] Reason for visit: Device detected A-fib HPI: Flynn Arnett is a 59 y.o. year old with past medical history of HFpEF, hypertension, severe MR s/p mitral valve repair/annuloplasty with left atrial appendage clip, PFO closure hyperlipidemia AAA, DM 2 was transferred from [facility] to [facility] with underlying A-fib with RVR. He was placed on Cardizem which resulted in his heart rate dropping to 20 to 30 minutes and subsequent was transferred over to [facility] he underwent a cardiac cath which revealed normal coronaries. Given the persistence of bradycardia he was subsequently given a dual-chamber pacemaker by me. Biotronik dual-chamber pacemaker was placed on 01/17/2025 and he was subsequently discharged. Device check that was subsequently performed reveals that he has got 8 percent A-fib burden with 80% RA pacing and 1% RV pacing. PMH: Past Medical History: Diagnosis Date GERD (gastroesophageal reflux disease) Hyperlipidemia Hypertension Mitral valve prolapse 04/2023 NONRHEUMATIC PSH: Past Surgical History: Procedure Laterality Date CARDIAC CATHETERIZATION Bilateral 04/2023 SH: Social Determinants of Health Tobacco Use: Low Risk (03/07/2025) Patient History Smoking Tobacco Use: Never Smokeless Tobacco Use: Never Passive Exposure: Not on file Alcohol Use: Not on file Financial Resource Strain: Low Risk (01/16/2025) Overall Financial Resource Strain (CARDIA) Difficulty of Paying Living Expenses: Not hard at all Food Insecurity: No Food Insecurity (01/16/2025) Hunger Vital Sign Worried About Running Out of Food in the Last Year: Never true Ran Out of Food in the Last Year: Not on file Transportation Needs: No Transportation Needs (01/16/2025) Transportation Lack of Transportation (Medical): No Lack of Transportation (Non-Medical): Not on file Physical Activity: Not on file Stress: Not on file Social Connections: Not on file Intimate Partner Violence: Unknown (01/16/2025) Humiliation, Afraid, Rape, and Kick questionnaire Fear of Current or Ex-Partner: No Emotionally Abused: Not on file Physically Abused: Not on file Sexually Abused: Not on file Depression: Not at risk (06/18/2023) PHQ-2 PHQ-2 Score: 0 Housing Stability: Low Risk (01/16/2025) Housing Stability Vital Sign Unable to Pay for Housing in the Last Year: No Number of Times Moved in the Last Year: Not on file Homeless in the Last Year: No Utilities: Not At Risk (01/16/2025) [facility] Utilities Threatened with loss of utilities: No Health Literacy: Not on file Allergies: No Known Allergies Weight: 102kg Visit Vitals BP 108/73 (BP Location: Left arm, Patient Position: Sitting) Pulse 70 Ht 1.753 m (5' 9 ) Wt 102 kg (224 lb) SpO2 94% BMI 33.08 kg/m??? Smoking Status Never BSA 2.23 m??? Meds: Current Outpatient Medications on File Prior to Visit Medication Sig Dispense Refill apixaban (Eliquis) 5 mg tablet Take 1 tablet (5 mg) by mouth two times daily. Please start taking eliquis after 1 week, starting from 01/25 Do not start before January 25, 2025. 90 tablet 3 aspirin 81 mg EC tablet Take 81 mg by mouth in the morning. carvedilol (Coreg) 3.125 mg tablet Take 1 tablet (3.125 mg) by mouth with breakfast and with evening meal. 180 tablet 3 dapagliflozin propanediol (Farxiga) 10 mg Take 1 tablet (10 mg) by mouth in the morning. 90 tablet 3 dilTIAZem CD (Cardizem CD) 120 mg 24 hr capsule Take 1 capsule (120 mg) by mouth once daily as directed. 90 capsule 3 HYDROcodone-acetaminophen (Sebewaing) 5-325 mg tablet Take 1 tablet by mouth every 4 (four) hours if needed. lisinopril 10 mg tablet Take 1 tablet (10 mg) by mouth in the morning. 90 tablet 3 metoprolol succinate XL (Toprol-XL) 25 mg 24 hr tablet Take 1 tablet (25 mg) by mouth in the morning. STOP CARVEDILOL 90 tablet 3 pantoprazole (ProtoNix) 40 mg EC tablet Take 40 mg by mouth before breakfast. simvastatin (Zocor) 20 mg tablet Take 20 mg by mouth at bedtime. ezetimibe (Zetia) 10 mg tablet Take 1 tablet (10 mg) by mouth in the morning. (Patient not taking: Reported on 03/07/2025) 30 tablet 0 furosemide (Lasix) 20 mg tablet Take 1/2 tablet daily (Patient not taking: Reported on 02/16/2025) 90 tablet 3 No current facility-administered medications on file prior to visit. ROS: Review of Systems Constitutional: Negative. Neurological: Positive for dizziness. Physical Exam: Constitutional General Appearance: well-nourished, well-developed, appears stated age Level of Distress: comfortable Eyes DRU Neck Neck: supple, trachea midline Carotid Arteries: bilateral normal upstroke, no bruits Jugular Veins: normal jugular venous pressure Thyroid: not enlarged Lungs Respiratory Effort: unlabored Chest Exam: normal curvature, no thoracic deformity Auscultation: clear, no wheezing, no rales, no rhonchi Cardiovascular Chest wall: Rate (more content not included)... [facility] 02-16-2025 Note Patient here for fol [facility] up ED visit last week. Still having dizziness when standing up and walking. He states when he sits still he's fine. Yesterday he felt fine all day. Having SOB with exertion. Having chest pain right now w/ intermittent radiation to the left shoulder. Saw Dr. Velasquez this morning. He did take an extra dose of carvedilol a few hours ago due to palpitations. He did not check his HR. [facility] 01-31-2025 Note [facility] Cardiology Clinic Note Chief Complaint: Follow up HPI: Flynn Arnett is a 59 y.o. male Patient here for follow up [facility]. Underwent heart cath and PPM implant. Still getting dizzy at times. He has apt with Dr. Lundy in March. Feels better than on admission; was admitted with acutely decompensated heart failure with preserved ejection fraction and significant sinus bradycardia as well as paroxysmal atrial fibrillation. He underwent cardiac catheterization including right heart catheterization coronary angiography. This showed significantly elevated filling pressures and normal coronaries. He subsequently underwent a permanent pacemaker. Apart from some mild orthostatic lightheadedness/dizziness, he has no new symptoms. He denies orthopnea or paroxysmal tunnel dyspnea, he has no significant lower extremity edema. He is tolerating Eliquis and aspirin without blood in the urine or stools. Admission Admitted 01/16/2025 for Bradycardia Discharge Diagnosis Primary Symptomatic severe sinus bradycardia Shock, cardiogenic from bradycardia arrhythmias Unstable angina Tachybrady syndrome Secondary Heart failure with preserved ejection fraction Mitral valve prolapse with regurgitation s/p mitral valve repair Essential hypertension Etv-sdosqen-kqaoxdwmr type 2 diabetes mellitus Discharge Disposition Home or Self Care () Discharge Medications Your medication list START taking these medications Instructions Last Dose Given Next Dose Due apixaban 5 mg tablet Commonly known as: Eliquis Start taking on: January 25, 2025 Take 1 tablet (5 mg) by mouth two times daily. Please start taking eliquis after 1 week, starting from 01/25 Do not start before January 25, 2025. CONTINUE taking these medications Instructions Last Dose Given Next Dose Due aspirin 81 mg EC tablet carvedilol 3.125 mg tablet Commonly known as: Coreg Take 1 tablet (3.125 mg) by mouth with breakfast and with evening meal. dapagliflozin propanediol 10 mg Commonly known as: Farxiga Take 1 tablet (10 mg) by mouth in the morning. ezetimibe 10 mg tablet Commonly known as: Zetia Take 1 tablet (10 mg) by mouth in the morning. furosemide 20 mg tablet Commonly known as: Lasix Take 1/2 tablet daily HYDROcodone-acetaminophen 5-325 mg tablet Commonly known as: Sebewaing lisinopril 10 mg tablet Take 1 tablet (10 mg) by mouth in the morning. pantoprazole 40 mg EC tablet Commonly known as: ProtoNix simvastatin 20 mg tablet Commonly known as: Zocor Where to Get Your Medications These medications were sent to [facility] - [address] [place] [address] [address] [facility] [place] [address], [facility] [address] apixaban 5 mg tablet Activity Normal activity as tolerated Diet Patient currently has no discharge diet orders Allergies Patient has no known allergies. Hospital Course Flynn Arnett is a 59 y.o. adult with a past medical history of heart failure with preserved ejection fraction, hypertension, mitral valve prolapse with regurgitation s/p mitral valve repair, hyperlipidemia, hzy-ulhliyu-lcqamymts type 2 diabetes, AAA who presents as a transfer from [facility]. Patient developed left lower chest pain yesterday, associated with shortness of breath. He says that he has been dealing with chest pains for quite a while but this episode was worse than his usual. 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 He also had shortness of breath and dizziness with this episode. Also had racing heartbeat. He went to the [facility] with these complaints, where reportedly his heart rate was as high as 165 bpm and he was found to have atrial fibrillation with rapid ventricular response. Patient says he was given some medication (possibly Cardizem) to control his heart rate, which brought his heart rate to his baseline of around 50s. However, on 01/16, his heart rate dropped down even further to 20 to 30 bpm. He was transferred to [facility] for higher level of care. At [facility], his heart rate was at his baseline of 50s. His EKG showed sinus bradycardia. Upon evaluation here, he says that his chest pain had subsided to 2-3 out of 10. Saturating normally on room air. He says that he has chronic bradycardia, and has been dealing with chest pain, shortness of breath and dizziness for the past few months. His last cardiac catheterization was in February 2023 which showed angiographically normal coronaries. He has been on low-dose Coreg at home. His CMP and CBC were unremarkable. There were no reversible causes of sinus bradycardia. Patient was seen by cardiology, a left heart cath was done which showed angiographically normal coronary arteries. After the cardiac cath, patient received a permanent pacemaker on 01/17. Pacemaker was found to be working adequately. Du (more content not included)... [facility] 01-18-2025 Note DUAL CHAMBER PACEMAK ER IMPLANT PROCEDURE NOTE DATE OF PROCEDURE: 01/17/2025 PERFORMING PHYSICIAN: Dr. Darryn Lundy CONSENT: Patient LOCATION: EP Lab PROCEDURE PERFORMED: 1. Implantation of pacemaker (Biotronik) 2. Ultrasound guided venous access INDICATIONS: 1. Symptomatic sinus bradycardia PROCEDURAL SEDATION: Versed and Fentanyl. Moderate sedation was administered by the sedation nurse under my supervision and noted in the CVL log. Intraprocedural face to face sedation time: 55min. Monitoring: Cardiac telemetry, Blood pressure, continuous pulse oxymetry. FLUOROSCOPY TIME: 6.2min/ 51mGray. EBL: 15cc SPECIMEN REMOVED: None PROCEDURAL DETAILS: Patient was placed in trendelenberg position and ultrasound was used to evaluate the patency of left axillary vein and for venous access. Left axillary venous access was obtained using modified seldinger technique using a 5 Chadian micro-puncture needle on two occasions and 0.35 wires were placed. Local infiltration of 1% Lidocaine was performed, and an incision was created in the left upper chest. Dissection was then performed using cautery down to the fascial plane above the muscle. The belly of the pectoralis was identified and with gentle blunt dissection a small pocket was created for the device above the muscle. 6 Chadian Safesheaths were placed over the wire. An active fixation Biotronik pacing lead was then delivered through the 6Fsheath tothe right ventricle. After confirmation of lead position on orthogonal views (SWANSON and AZERI) to confirm septal position, the screw was activated, and the lead was placed in the right ventricular mid cavity towards the septum. After confirmation of good sensing parameters, injury pattern and pacing thresholds, 10V pacing was done and no diaphragmatic stimulation was noted. It was then secured in the pocket using three 1-0 Silk sutures. Then an active fixation Biotronik lead was delivered through the 6Fsheath to the right atrial appendage. After confirmation of lead position on orthogonal views (SWANSON and AZERI), the screw was activated. Good sensing parameters, injury pattern and pacing thresholds, the lead was then tested using Lambert's maneuver. However there was lead dislodgement and reattempts were done on 2 occasions. Finally a spot where threshold was good was noted. Patient was noted to go into a atrial tachycardia with 2:1 conduction which terminated with PAC. 10V pacing was done and no diaphragmatic stimulation was noted. It was then secured in the pocket using three 1-0 Silk sutures. Pocket hemostasis was secured, and it was then copiously and vigorously irrigated with antibiotic solution. The leads were attached to the generator and then wrapped under the device and the device was tacked to underlying muscle and placed in the pocket. The pocket was closed in layers: subcutaneous layer using 2-0 Vicryl; skin using 3-0 absorbable monofilament suture. Glue was applied and Tegaderm dressing was placed on top. Lead parameters were then rechecked through the device as noted below. The patient was returned to the short stay room for post procedural observation. No immediate procedural complications were noted. POST PROCEDURE EXAM: Patient was hemodynamically stable. COMPLICATIONS: None. IMPRESSION: 1. Successful dual chamber pacemaker with excellent pacing and sensing parameters. RECOMMENDATIONS: 1. Occlusive dressing to be removed after 2 weeks. 2. Do not wet the incision for 7 days. 3. No lifting heavy weights using arm on the same side x 3weeks 4. Do not lift elbow above the shoulder on the same side for 4-6 weeks. 5. No driving for 1 month. 6. F/u in device clinic 1 week from discharge or sooner for any concerns. Darryn Lundy MD Cardiac Electrophysiology [facility] 01-18-2025 Note ---- Attestation signed by Jonnathan Gee MD at 01/18/2025 9:33 PM I personally saw Mr. Arnett today with Dr. Sy and discussed his care with him. ---- Cardiology Progress Note Subjective Patient seen at bedside. Denies SOB, CP, palpitations, light headedness, dizziness. Overnight he went into AF RVR, currently in NSR. Objective: Patient Vitals for the past 24 hrs: BP Temp Temp src Pulse Resp SpO2 Weight 01/18/25 1300 -- -- -- 60 17 -- -- 01/18/25 1200 -- -- -- 61 16 97 % -- 01/18/25 1100 -- -- -- 76 16 93 % -- 01/18/25 1000 -- -- -- 63 14 96 % -- 01/18/25 0800 126/82 36.3 ???C (97.3 ???F) -- 63 16 96 % -- 01/18/25 0750 -- -- -- -- -- 97 % -- 01/18/25 0700 129/89 -- -- 63 13 96 % -- 01/18/25 0600 126/87 -- -- -- -- -- -- 01/18/25 0500 105/78 -- -- 60 21 -- -- 01/18/25 0400 108/75 -- -- 65 24 -- -- 01/18/25 0300 102/76 -- -- 60 17 -- -- 01/18/25 0200 102/72 -- -- 62 20 92 % -- 01/18/25 0100 112/84 -- -- 64 21 91 % -- 01/18/25 0009 -- -- -- -- -- -- 94.6 kg (208 lb 8.9 oz) 01/18/25 0000 (!) 131/98 36.4 ???C (97.5 ???F) Temporal 68 17 95 % -- 01/17/25 2300 130/76 -- -- 71 18 93 % -- 01/17/25 2200 131/84 -- -- 61 20 94 % -- 01/17/25 2100 126/85 -- -- 68 25 94 % -- 01/17/251999 (!) 158/101 36.2 ???C (97.2 ???F) Temporal 74 20 98 % -- 01/17/25 195 (!) 133/101 -- -- 64 -- -- -- 01/17/25 1938 128/76 -- -- 73 14 98 % -- 01/17/25 1842 -- -- -- -- -- 97 % -- 01/17/25 184 (!) 156/93 -- -- 52 12 97 % -- 01/17/25 1500 114/81 -- -- (!) 44 16 95 % -- 01/17/25 1400 118/77 -- -- (!) 47 17 95 % -- Physical Examination: GENERAL: AOx3, in no acute distress. HEAD: Atraumatic, normocephalic. EYES: BRUNILDA, EOMI. NECK: No JVD present. CARDIAC: Bradycardic. No murmur, rubs, or gallops. RESPIRATORY: CTAB, no increased effort of breathing. ABDOMEN: Soft, nontender, nondistended. EXTREMITIES: No lower extremity edema, peripheral pulses are 2+ bilaterally. NEURO: No focal deficits Relevant Lab Results Encounter Date: 01/16/25 ECG 12 lead Result Value Ventricular Rate 128 QRS DURATION 80 QT Interval 330 QTC CALCULATION(BAZETT) 481 R-Wallis 62 T Wave Wallis 87 Impression Atrial fibrillation with rapid ventricular response Cannot rule out Inferior infarct , age undetermined Abnormal ECG When compared with ECG of 18-JAN-2025 00:41, (unconfirmed) Atrial fibrillation has replaced Electronic atrial pacemaker Vent. rate has increased BY 66 BPM Criteria for Septal infarct are no longer Present ST no longer elevated in Inferior lead ST more depressed in Anterior leads T wave inversion no longer evident in Anterior leads No results found for: CKTOTAL , CKMB , CKMBINDEX , TROPONINI Limited Echo (TTE) w/wo Limited Doppler, Color Flow, Imaging Agent, Strain, 3D, Bubble Study Result Date: 01/16/2025 1 1 [facility] Heart Station [address] [place] [address] [phone] (fax) Echocardiogram-[facility] Name: FLYNN ARNETT Study Date: 01/16/2025 02:51 PM B/P: 117 mmHg/76 mmHg HR: 54 bpm Date of : 1965 Location: [facility] Height: 69 in. Age: 59 year(s) Patient Room: 3205 Weight: 228 lb. Gender: Male Patient Status: InPt BSA: 2.18 m2 Indication: Limited; LVF, Bradycardia S/P Atrial fibrillation w/ RVR, H/O MV Repair & JARED clip Examination: Limited Echo/Limited Doppler, Color flow imaging Image Quality: Good Patient Consent: Procedure explained to patient Conclusions Left Ventricle: Global left ventricular systolic function is normal. The EF is 55 % visually. Left ventricular wall thickness is normal. The septum is abnormal in its motion, not unusal finding in the post open heart patient. Right Ventricle: The right ventricle appears normal in size. Normal right ventricular systolic function. Doppler studies suggest normal right sided pressures. Mitral Valve: Annuloplasty ring appears well seated in mitral position. Trivial mitral regurgitation. Mitral Valve Measurements MV Vmax: 1.75 m/s. MV Vmean: 1.02 m/s. MV PGmax: 12.00 mmHg. MV PGmean: 5.00 mmHg. Aorta: The ascending aorta measures 4.10 cm. Mild dilatation of the ascending aorta. Measurements Left Ventricle Label Value Normal Value LVOTd 2.4 cm (19cm - 21cm) LVEF visual 55 % LVDd, 2D 5.69 cm (4.2cm - 5.9cm) LVDs, 2D 3.97 cm (2.1cm - 4cm) IVSd, 2D 0.96 cm (0.6cm - 1.1cm) LVPWd, 2D 0.97 cm (0.6cm - 1cm) LV Mass, 2D ASE 215.45 g LV Mass Index, 2D ASE 98.8 g/m?? (50g/m?? - 102.4g/m??) RWT, MM 0.34 (0 - 0.42) LVSVI, 2D 41.3 ml/m2 Left Atrium Label Value Normal Value LADs, 2D 4 cm (3cm - 4cm) Mitral Valve Label Value Normal Value MV E Vmax 1.76 m/s MV A Vmax 1.24 m/s MV E/A 1.42 Tricuspid Valve Label Value Normal Value RA Pressure 3 mmHg RVSP 33 mmHg (more content not included)... [facility] 01-18-2025 Note ---- Attestation signed by Champ Caceres MD at 01/18/2025 10:14 AM The patient was evaluated with the resident/fellow Flynn Arnett is a 59 y.o. adult with a past medical history of heart failure with preserved ejection fraction, hypertension, mitral valve prolapse with regurgitation s/p mitral valve repair, hyperlipidemia, opt-xyrtwmi-fgrempzws type 2 diabetes, AAA who presents as a transfer from [facility] for chest pain Critical Care services were required for the patient due to critical condition: Severe Bradycardia down to 20/30/minutes requiring Inotrope Afib with RVR Unstable Angina CHFpEF MVR s/p repair HTN DM2 I personally provided direct critical care services consisting of: Underwent pacemaker placement Developed Afib with RVR overnight, resume Coreg Heparin drip, can switch to Eliquis, CHADSVAS 3 Electrolytes within normal range ASA and Liptor DVT and GI prophylaxis ---- Medical ICU Progress Note Patient - Flynn Arnett Age - 59 [facility] 1965 [id number] Date of Admission - 01/16/2025 2:24 PM HPI/Hospital Course Subjective Flynn Arnett is a 59 y.o. adult with a past medical history of heart failure with preserved ejection fraction, hypertension, mitral valve prolapse with regurgitation s/p mitral valve repair, hyperlipidemia, ewt-vexylot-bzmmdanzv type 2 diabetes, AAA who presents as a transfer from [facility]. Patient developed left lower chest pain yesterday, associated with shortness of breath. He says that he has been dealing with chest pains for quite a while but this episode was worse than his usual. 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 He also had shortness of breath and dizziness with this episode. Also had racing heartbeat. He went to the [facility] with these complaints, where reportedly his heart rate was as high as 165 bpm and he was found to have atrial fibrillation with rapid ventricular response. Patient says he was given some medication (possibly Cardizem) to control his heart rate, which brought his heart rate to his baseline of around 50s. However, on 01/16, his heart rate dropped down even further to 20 to 30 bpm. He was transferred to [facility] for higher level of care. At [facility], his heart rate was at his baseline of 50s. His EKG showed sinus bradycardia. Upon evaluation here, he says that his chest pain had subsided to 2-3 out of 10. Saturating normally on room air. He says that he has chronic bradycardia, and has been dealing with chest pain, shortness of breath and dizziness for the past few months. His last cardiac catheterization was in February 2023 which showed angiographically normal coronaries. He has been on low-dose Coreg at home. His CMP and CBC were unremarkable. SUBJECTIVE Patient was seen and examined at bedside this morning. He is currently doing well with no acute complaints. Yesterday, patient had a coronary angiogram which showed normal coronaries. He also got a pacemaker placed yesterday per EP. Overnight, patient had episodes of atrial fibrillation with rapid ventricular response. He woke up from the sleep with racing heart beats. Episode subsided after he was given 5 mg IV lopressor OBJECTIVE Vitals height is 1.753 m (5' 9.02 ) and weight is 94.6 kg (208 lb 8.9 oz). Flynn's temporal temperature is 36.4 ???C (97.5 ???F). Flynn's blood pressure is 126/87 and Flynn's pulse is 60. Flynn's respiration is 21 and oxygen saturation is 92%. Temp: [36.2 ???C (97.2 ???F)-36.4 ???C (97.5 ???F)] 36.4 ???C (97.5 ???F) Heart Rate: [44-74] 60 Resp: [12-25] 21 BP: (102-158)/(72-101) 126/87 Physical Exam: General: No acute distress HEENT: Normocephalic, atraumatic, EOMI, no scleral icterus or erythema Neck: Supple, trachea midline, no masses noted Cardiovascular: Atrial paced rhythm, normal S1-S2, no murmurs, no rubs, no peripheral edema Respiratory: No acute respiratory distress, clear to auscultation bilaterally, no wheezing, no rales Abdomen: Soft, nontender, nondistended, positive bowel sounds Extremities: No cyanosis, no edema Neuro: No focal deficits Skin: Warm, dry, no rashes Weight: Admission weight: 101 kg (221 lb 9 oz) Wt Readings from Last 1 Encounters: 01/18/25 94.6 kg (208 lb 8.9 oz) Input/Output: Intake/Output Summary (Last 24 hours) at 01/18/2025 0731 Last data filed at 01/17/20251999 Gross per 24 hour Intake 144.31 ml Output 360 ml Net -215.69 ml Ventilator: Lab Results ABG: pH, Arterial Date Value Ref Range Status 05/28/2023 7.41 7.35 - 7.45 pH Final pCO2, Arterial Date Value Ref Range Status 05/28/2023 40 35 - 48 mmHg Final pO2, Arterial Date Value Ref Range Status 05/28/2023 61 (L) 83 - 100 mm (more content not included)... [facility] 01-17-2025 Note Patient: Flynn kim Procedure Information Date/Time: 01/17/25 1700 Procedure: Implant PPM Location: [facility] PHP ENGINEER 1 EP / [facility] HV VASCULAR LAB (Cath) Providers: Darryn Lundy MD Clinical information reviewed: Allergies Meds Physical Exam Airway Mallampati: II TM distance: >3 FB Neck ROM: full Cardiovascular Dental Pulmonary Abdominal Anesthesia Plan ASA 3 CSE Anesthetic plan and risks discussed with patient. Use of blood products discussed with patient who. Additional Equipment Requests [facility] 01-17-2025 Note ---- Attestation signed by Jonnathan Gee MD at 01/17/2025 7:24 PM I personally saw and examined Mr. Arnett after the cath and before the planned pacemaker procedure. We discussed the pacemaker procedure in some detail and recommend that he go ahead with this. 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 He and his family understand. ---- Cardiology Progress Note Subjective Patient seen at bedside. Denies SOB, CP, palpitations, light headedness, dizziness. His HR is in the 50s. Objective: Patient Vitals for the past 24 hrs: BP Pulse Resp SpO2 01/17/25 1500 114/81 (!) 44 16 95 % 01/17/25 1400 118/77 (!) 47 17 95 % 01/17/25 1217 115/76 57 13 94 % 01/17/25 1151 -- -- -- 99 % 01/17/25 1150 146/86 54 16 99 % 01/17/25 0800 -- 52 15 96 % 01/17/25 0700 126/81 52 18 94 % 01/17/25 0609 132/90 52 13 94 % 01/17/25 0500 104/62 61 21 92 % 01/17/25 0400 99/71 50 15 93 % 01/17/25 0300 101/75 (!) 48 17 96 % 01/17/25 0200 89/57 60 18 (!) 88 % 01/17/25 0100 116/88 (!) 43 18 96 % 01/17/25 0000 101/73 (!) 45 18 94 % 01/16/25 2300 116/74 53 (!) 8 97 % 01/16/25 2200 113/68 (!) 46 19 94 % 01/16/25 2100 126/86 56 22 96 % 01/16/25 2000 -- 58 17 98 % 01/16/25 1900 -- 62 16 96 % 01/16/25 1800 123/71 51 20 96 % Physical Examination: GENERAL: AOx3, in no acute distress. HEAD: Atraumatic, normocephalic. EYES: BRUNILDA, EOMI. NECK: No JVD present. CARDIAC: Bradycardic. No murmur, rubs, or gallops. RESPIRATORY: CTAB, no increased effort of breathing. ABDOMEN: Soft, nontender, nondistended. EXTREMITIES: No lower extremity edema, peripheral pulses are 2+ bilaterally. NEURO: No focal deficits Relevant Lab Results Encounter Date: 01/16/25 ECG 12 lead Result Value Ventricular Rate 49 Atrial Rate 49 MI Interval 196 QRS DURATION 82 QT Interval 474 QTC CALCULATION(BAZETT) 428 P Wallis -18 R-Wallis 51 T Wave Wallis 69 Impression Sinus bradycardia Nonspecific ST and T wave abnormality Abnormal ECG When compared with ECG of 16-JAN-2025 14:49, Premature atrial complexes are no longer Present No results found for: CKTOTAL , CKMB , CKMBINDEX , TROPONINI Limited Echo (TTE) w/wo Limited Doppler, Color Flow, Imaging Agent, Strain, 3D, Bubble Study Result Date: 01/16/2025 1 1 [facility] Heart Station [address] [place] [address] [phone] (fax) Echocardiogram-[facility] Name: FLYNN ARNETT Study Date: 01/16/2025 02:51 PM B/P: 117 mmHg/76 mmHg HR: 54 bpm Date of : 1965 Location: [facility] Height: 69 in. Age: 59 year(s) Patient Room: 3205 Weight: 228 lb. Gender: Male Patient Status: InPt BSA: 2.18 m2 Indication: Limited; LVF, Bradycardia S/P Atrial fibrillation w/ RVR, H/O MV Repair & JARED clip Examination: Limited Echo/Limited Doppler, Color flow imaging Image Quality: Good Patient Consent: Procedure explained to patient Conclusions Left Ventricle: Global left ventricular systolic function is normal. The EF is 55 % visually. Left ventricular wall thickness is normal. The septum is abnormal in its motion, not unusal finding in the post open heart patient. Right Ventricle: The right ventricle appears normal in size. Normal right ventricular systolic function. Doppler studies suggest normal right sided pressures. Mitral Valve: Annuloplasty ring appears well seated in mitral position. Trivial mitral regurgitation. Mitral Valve Measurements MV Vmax: 1.75 m/s. MV Vmean: 1.02 m/s. MV PGmax: 12.00 mmHg. MV PGmean: 5.00 mmHg. Aorta: The ascending aorta measures 4.10 cm. Mild dilatation of the ascending aorta. Measurements Left Ventricle Label Value Normal Value LVOTd 2.4 cm (19cm - 21cm) LVEF visual 55 % LVDd, 2D 5.69 cm (4.2cm - 5.9cm) LVDs, 2D 3.97 cm (2.1cm - 4cm) IVSd, 2D 0.96 cm (0.6cm - 1.1cm) LVPWd, 2D 0.97 cm (0.6cm - 1cm) LV Mass, 2D ASE 215.45 g LV Mass Index, 2D ASE 98.8 g/m?? (50g/m?? - 102.4g/m??) RWT, MM 0.34 (0 - 0.42) LVSVI, 2D 41.3 ml/m2 Left Atrium Label Value Normal Value LADs, 2D 4 cm (3cm - 4cm) Mitral Valve Label Value Normal Value MV E Vmax 1.76 m/s MV A Vmax 1.24 m/s MV E/A 1.42 Tricuspid Valve Label Value Normal Value RA Pressure 3 mmHg RVSP 33 mmHg TR Vmax 2.74 m/s Aorta Label Value Normal Value AoAsc 4.1 cm AoRoot, 2D 3.6 cm (1.4cm - 3.8cm) Valvular Assessment LVOT 0.7 - 1.1 m/sec Aortic Valve 1.0 - 1.7 m/sec Mitral Valve 0.6 - 1.3 m/sec Tricuspid Valve 0.3 - 0.7 m/sec Pulmonic Valve 0.6 - 0.9 m/sec Regurgitation Trivial Trivial Trivial Trivial Max Velocity 1.76 m/sec 1.14 m/s Max Gradient 12.00 mmHg 5.00 mmHg Mean Gradient 5.00 mmHg Valve Area 1.2 cm?? Findings Left Ventricle: Global left ventricular sy (more content not included)... [facility] 01-17-2025 Note Patient: Flynn Butts Col kim Procedure Information Date/Time: 01/17/251844 Procedure: Coronary angiography Location: [facility] PHP [facility]INE[facility] 3 / [facility] (Cath) Providers: Reddy Henry MD Clinical information reviewed: Allergies Meds Physical Exam Airway Mallampati: II TM distance: <3 FB Neck ROM: full Cardiovascular - normal exam Rhythm: regular Dental Pulmonary - normal exam Abdominal - normal exam Anesthesia Plan ASA 3 other (Conscious sedation) Anesthetic plan and risks discussed with patient. Use of blood products discussed with patient who consented to blood products. Additional Equipment Requests [facility] 01-17-2025 Note ---- Attestation signed by Champ Caceres MD at 01/18/2025 10:12 AM The patient was evaluated with the resident/fellow Flynn Arnett is a 59 y.o. adult with a past medical history of heart failure with preserved ejection fraction, hypertension, mitral valve prolapse with regurgitation s/p mitral valve repair, hyperlipidemia, adt-ziknkrh-fjleyhgyz type 2 diabetes, AAA who presents as a transfer from [facility] for chest pain Critical Care services were required for the patient due to critical condition: Severe Bradycardia down to 20/30/minutes requiring Inotrope Afib with RVR Unstable Angina CHFpEF MVR s/p repair HTN DM2 I personally provided direct critical care services consisting of: Underwent left heart cath, no intervention Plan to proceed with pacemaker placement Resume Coreg after pacemaker Heparin drip, can switch to Eliquis, CHADSCASC 3 F/U cardiac enzymes ASA and Liptor Check Thyroid panel DVT and GI prophylaxis Critical Care minutes were 35, which excludes time performing separately billed procedures, updating family, and teaching. ---- Medical ICU Progress Note Patient - Flynn Arnett Age - 59 [facility] 1965 [id number] Date of Admission - 01/16/2025 2:24 PM HPI/Hospital Course Subjective Flynn Arnett is a 59 y.o. adult with a past medical history of heart failure with preserved ejection fraction, hypertension, mitral valve prolapse with regurgitation s/p mitral valve repair, hyperlipidemia, owd-otarydp-utlmmdxxd type 2 diabetes, AAA who presents as a transfer from [facility]. Patient developed left lower chest pain yesterday, associated with shortness of breath. He says that he has been dealing with chest pains for quite a while but this episode was worse than his usual. 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 He also had shortness of breath and dizziness with this episode. Also had racing heartbeat. He went to the [facility] with these complaints, where reportedly his heart rate was as high as 165 bpm and he was found to have atrial fibrillation with rapid ventricular response. Patient says he was given some medication (possibly Cardizem) to control his heart rate, which brought his heart rate to his baseline of around 50s. However, on 01/16, his heart rate dropped down even further to 20 to 30 bpm. He was transferred to [facility] for higher level of care. At [facility], his heart rate was at his baseline of 50s. His EKG showed sinus bradycardia. Upon evaluation here, he says that his chest pain had subsided to 2-3 out of 10. Saturating normally on room air. He says that he has chronic bradycardia, and has been dealing with chest pain, shortness of breath and dizziness for the past few months. His last cardiac catheterization was in February 2023 which showed angiographically normal coronaries. He has been on low-dose Coreg at home. His CMP and CBC were unremarkable. SUBJECTIVE Patient was seen and examined at bedside this morning. He has been hemodynamically stable and does not have any acute complaints. Saturating normally on room air. Has sinus bradycardia with baseline heart rates of 50 bpm. He has been n.p.o. since midnight for coronary angiogram today. OBJECTIVE Vitals height is 1.753 m (5' 9.02 ) and weight is 101 kg (221 lb 9 oz). [facility]'s temporal temperature is 36.9 ???C (98.5 ???F). Flynn's blood pressure is 126/81 and Flynn's pulse is 52. Flynn's respiration is 18 and oxygen saturation is 94%. Temp: [36.9 ???C (98.5 ???F)] 36.9 ???C (98.5 ???F) Heart Rate: [43-62] 52 Resp: [7-30] 18 BP: (89-132)/(57-90) 126/81 Physical Exam: General: No acute distress HEENT: Normocephalic, atraumatic, EOMI, no scleral icterus or erythema Neck: Supple, trachea midline, no masses noted Cardiovascular: Bradycardia with normal sinus rhythm, normal S1-S2, no murmurs, no rubs, no peripheral edema Respiratory: No acute respiratory distress, clear to auscultation bilaterally, no wheezing, no rales Abdomen: Soft, nontender, nondistended, positive bowel sounds Extremities: No cyanosis, no edema Neuro: No focal deficits Skin: Warm, dry, no rashes Weight: Admission weight: 101 kg (221 lb 9 oz) Wt Readings from Last 1 Encounters: 01/16/25 101 kg (221 lb 9 oz) Input/Output: Intake/Output Summary (Last 24 hours) at 01/17/2025 0723 Last data filed at 01/17/2025 0400 Gross per 24 hour Intake 360 ml Output 1300 ml Net -940 ml Ventilator: Lab Results ABG: pH, Arterial Date Value Ref Range Status 05/28/2023 7.41 7.35 - 7.45 pH Final pCO2, Arterial Date Value Ref Range Status 05/28/2023 40 35 - 48 mmHg Final pO2, Arterial Date Value Ref Range Status 05/28/2023 61 (L) 83 (more content not included)... [facility] 01-16-2025 Note Given chest pain and shortness of breath with modest activity, especially with new bradycardia, plan coronary angiography tomorrow to exclude significant CAD that could explain symptoms and bradycardia. [facility] 01-16-2025 Note Tentatively plan nimesh l chamber pacemaker implant tomorrow for symptomatic bradycardia. [facility] 12-06-2024 Note LENNIE ALEJANDRO CARDIOL OGY PROGRESS NOTE Patient here for [...] regurgitation. He was switched from Farxiga to Hansdiance due to cost. Had echo last month, [...] Reported on 06/30/2023) 120 capsule 0 HYDROcodone-acetaminophen (Sebewaing) 5-325 mg tablet Take 1 tablet by [...] Mucous membranes are (more content not included)... [facility] 10-27-2024 Note LENNIE ALEJANDRO CARDIOL OGY PROGRESS NOTE Patient here for [...] takes less th (more content not included)... [facility] 04-15-2024 Note Aortic dilitation re yulia stable Will repeat Echocardiogram in 1 year D/w pt importance of statin and HTN management and he voiced understanding [facility] 04-15-2024 Note Hypertension is curr ently controlled- he has stopped taking coreg, lasix and jardiance- He does monitor b/p at home and typically b/p remains < 130/80 [facility] 04-15-2024 Note stable [facility] 04-15-2024 Note S/P MV repair- ring Ring with normal doppler flows on TTE No concerning symptoms currently [facility] 04-15-2024 Note [facility] I currently euv olemic without exacerbation HE has stopped jardiance and lasix r/t lightheadedness/dizzyness and symptoms have resolved. He has lost weight since his last visit and overall doing well. Monitor daily weights, I&O, fluid restriction 1.5-2L/day, renal function and electrolytes- [facility] 04-15-2024 Note [facility] CARDIOLOGY PROGR ESS NOTE [...] he stopped ze (more content not included)... [facility] 04-15-2024 Note Patient here for 6 m [...] All other systems reviewed and are negative. [facility] 05-10-2023 Evaluation note Encounter Date Diagnosis Assessment [...] tomorrow. You may also follow-up with an director heart if no improvement. Go to the ER for worsening symptoms or concerns May, Left ear impacted cerumen (ICD-10 - H61.22) Cerumen impaction home care material was printed May, Right ear impacted cerumen (ICD-10 - H61.21) [facility] Other 04-07-2023 NoteChief Complaint consultation for umbilical [...] PEPE, BETI Lees Only if needed [address] [place] [address]- Additional Instructions: Problem List/Past Medical History Ongoing [...] Tobacco - Denies T (more content not included)...[facility] Comment on above:Result Comment: Electronically Signed By: Colt STUART MD\.br\Date and Time Signed: 01/09/23 15:56 [id number] Hospital Discharge instructions Follow Up Care 12/18/2022 13:20:00 With:Clot STUART MD, BETI Address: [address] [place] [id number]- When: only if needed General Surgery Flavia Evaluation + Plan note No data available for this section General Surgery Etlan History general Narrative - Reported* Type Description Date Medical History GERD Medical History HYPERLIPIDEMIA Hospitalization History KNEE CELLULITIS [facility] Other Progress note No data available for this section General Surgery Flavia Summary Purpose Family History No Family History Records FoundNo Family History Records FoundNo Family History Records Found Advance Directives No Advanced Directives Records FoundNo Advanced Directives Records FoundNo Advanced Directives Records Found Additional Source Comments Patient Care team informatio n (unrecognized section and content) Personnel Name: Lauren Velasquez MD Address: Address: [address] [place] [address]- (unrecognized sect ion and content) No Status Records FoundNo Status Records FoundNo Status Records Found INFORMATION SOURCE (unrecogn ized section and content) DATE CREATED AUTHOR 01/11/2023 [facility] DATE CREATED AUTHOR AUTHOR'S ORGANIZ ATION 02/13/2023 [facility] DATE CREATED AUTHOR AUTHOR'S ORGANIZ ATION 04/03/2025 [facility] REASON FOR VISIT (unrecogniz ed section and content) LEFT EAR, PAINFUL, HAD DROPS FROM , BUT IT IS NOT FEELING ANY BETTER [...] BE BASED ON THE PRIMARY CLINICAL RECORDS. [employer] provides no warranty or guarantee of the accuracy or completeness of information in this document.
[2025-05-06 08:28] LABS: Hematocrit 46.8 % (42.0-54.0); Hemoglobin 15.6 g/dL (14.0-18.0); Immature Granulocytes Abs Auto 0.03 10^3/uL (0.00-0.03); Immature Granulocytes Pct Auto 0.4 % (0.0-0.5); Lymphocytes Absolute Auto 2.8 10^3/uL (1.2-3.8); Mean Corpuscular HGB Conc 33.3 g/dL (29.9-35.2); Mean Corpuscular Hemoglobin 27.9 pg (25.9-34.0); Mean Corpuscular Volume 83.7 fL (80.0-94.0); Platelet Count 215 10^3/uL (150-450); Red Blood Count 5.59 10^6/uL (4.70-6.10); White Blood Count 7.0 10^3/uL (4.0-11.0)
[2025-05-06 08:55] LABS: Anion Gap 15.8; Blood Urea Nitrogen 15.0 mg/dL (7.0-18.0); Calcium 9.2 mg/dL (8.5-10.1); Carbon Dioxide 24.7 mmol/L (21.0-32.0); Chloride 105 mmol/L (98-107); Estimated GFR (African America >60 (>=60 mL/min/1.73m^2); Estimated GFR (Non-African Ame >60 (>=60 mL/min/1.73m^2); Glucose 127 mg/dL (74-106); Potassium 4.5 mmol/L (3.5-5.1); Sodium 141 mmol/L (136-145)
== END 2025-05-06 07:53 | disposition home or self-care (01) ==
LOC: LAB 07:53
PROVIDERS: PCP Family Medicine; Visit Provider Internal Medicine Cardiovascular Disease
DX: I48.0 Paroxysmal atrial fibrillation (principal)
CPT/HCPCS: 36415; 80048; 85025

== ENCOUNTER 2025-05-23 07:08 | Outpatient (OUT) | payer BC, SELFPAY ==
--- NOTE | 2025-05-23 07:11 | CA_ITS ---
Patient Name: FLYNN ARNETT MR#: [id number] : 1965 Exam Date: 05/23/2025 Ordering Doctor: DR DANIEL WEBSTER M.D. ECHOCARDIOGRAM REPORT PROCEDURE: CA ECHO DOPPLER COMPLETE INDICATIONS: Mitral valve regurgitation, mitral valve ring, pacemaker COMPARISON: None. DESCRIPTION: COMPLETE ECHOCARDIOGRAM Real-time transthoracic echocardiography with 2D, M-mode, spectral and color flow Doppler performed. QUALITY: Technical quality was good. LEFT VENTRICLE: Normal chamber size. Mild concentric left ventricular hypertrophy. LV EF: Global left ventricular systolic function is difficult to assess but appears reduced; visually estimated ejection fraction is 35 to 40%. Calculated left ventricular ejection fraction is 42%. Abnormal septal motion; this is not unusual in the postoperative outpatient. DIASTOLIC: Unable to assess diastolic function. ATRIAL SEPTUM: Visually appears intact. LEFT ATRIUM: Moderate dilatation. RIGHT ATRIUM: Mild dilatation. RIGHT VENTRICLE: Mild dilatation. Systolic function appears preserved. Pacer wire present. TRICUSPID VALVE: Normal mobility and thickness. No stenosis with trivial regurgitation. Normal right ventricular systolic pressure. MITRAL VALVE: Trivial mitral regurgitation. Evidence of prior mitral valve ring and repair. Vmax 1.59 m/s, Mean 4.26 mmHg AORTIC VALVE: Normal trileaflet appearance. No visible sclerosis. Normal leaflet mobility. No evidence of aortic valve stenosis. Trivial aortic regurgitation. AORTIC ROOT: Normal diameter and appearance. Ascending aorta is dilated (3.9 cm). PULMONIC VALVE: Normal thickness and mobility. No stenosis. Trivial regurgitation. PERICARDIUM: Anterior free space; trivial effusion versus fat pad. IVC: Collapses with inspiration. CONCLUSION: 1. Global left ventricular systolic function is difficult to assess but appears moderately reduced; visually estimated ejection fraction is 35 to 40% 2. The right ventricle is mildly dilated with normal systolic function 3. Mild left ventricular hypertrophy 4. Biatrial dilatation 5. Evidence of prior mitral valve repair; trivial mitral regurgitation 6. The ascending aorta is mildly dilated 7. Anterior free space; trivial effusion versus Adult Echocardiography Procedure Report Left Ventricle LVEDD (3.7 - 5.6 cm): 5.23 cm LVESD (2.2 - 4.0 cm): 3.85 cm LVIVS thickness (0.6 - 1.2 cm): 1.28 cm LVPW thickness (0.5 - 1.0 cm): 1.18 cm LVOT Max Gradient: 2.13 mm[Hg] LVOT Area (cm2): 0.73 m/s Peak Velocity (LVOT): 0.73 m/s Mean Velocity (LVOT): 0.55 m/s LVOT Diameter 2.67 cm Left Ventricular Ejection Fraction: 42.49 % Left Atrium LA Volume Index (2D A2C): 47.77 ml/m2 Left Atrium Systolic Dimension: 4.68 cm Mitral Valve MV E to A Ratio: 0.77 Mitral Valve A-Wave Peak Velocity: 1.43 m/s Mitral Valve E-Wave Peak Velocity: 1.10 m/s Right Ventricle Aorta AO Root Diam: 4.05 cm Ascending Ao Diam: 3.89 cm Aortic Valve AoV Area (Peak Donal): 4.87 cm2, 4.87 cm2 AoV Area (VTI): 4.65 cm2, 4.65 cm2 Peak Velocity(Antegrade Flow): 0.84 m/s Peak Gradient(Antegrade Flow): 2.80 mm[Hg] Mean Velocity(Antegrade Flow): 0.54 m/s Mean Gradient(Antegrade Flow): 1.35 mm[Hg] Velocity Time Integral: 19.43 cm Tricuspid Valve Peak Velocity (Regurgitant Flow): 2.00 m/s, 2.13 m/s Pulmonic Valve Peak Gradient: 2.49 mm[Hg], 2.11 mm[Hg] Right Atrium Right Atrium Systolic Pressure: 59.16 ml, 59.16 ml Dictated by: Daniel Webster M.D. on 05/23/2025 at 10:56 Approved by: Daniel Webster M.D. on 05/23/2025 at 11:01
--- OUTSIDE RECORDS SUMMARY | 2025-05-23 07:11 | XMS_ITS | CCD ---
Author Organization [facility] Care Team Providers Care Information Support Project Manager Name Role Phone Lauren Velasquez Primary Care Physician Colt TSUART Attending Unavailable MONICA BABIN Admitting Unavailable MONICA [...] Attending Unavailable ELTAHAWY, DR SANCHEZ Consulting Unavailable Mnoica Jackson Unavailable SAFI, CHAMP Referring Unavailable DARRYN LUNDY Referring Unavailable ELTAHAWYADONIS Referring Unavailable DARRYN LUNDY Attending Unavailable ELTAHAWY, ADONIS Attending Unavailable ODALISI, CHAMP Referring Unavailable DARRYN LUNDY Referring Unavailable SAFI, CHAMP Referring Unavailable DARRYN LUNDY Referring Unavailable SAFI, CHAMP Referring Unavailable LAUREN VELASQUEZ Referring Unavailable SAFI, CHAMP Admitting Unavailable SAFI, CHAMP Attending Unavailable DARRYN LUNDY Admitting Unavailable DARRYN LUNDY Attending Unavailable ELTAHAWY, ADONIS Attending Unavailable ELTAHAWY, ADONIS Attending Unavailable Medications [...] ectasia, unspecified site] Onset: 01-31-2025 Chronic Cardiac dysrhythmias (6 sources) Paroxysmal atrial fibrillation; Translations: [Unspecified atrial fibrillation] Onset: 01-16-2025 Chronic Conduction disorders (4 sources) Encounter for adjustment [...] SCREEN MALIG NEOPLASM PROSTATE] Onset: 01-20-2023 Episodic Past or Other Problems Problem Classification Problem Date Documented Da te Episodic/Chronic Cardiac dysrhythmias (2 sources) Bradycardia, unspecified; Translations: [Bradycardia, unspecified] Onset: 01-16-2025 Episodic Fever of unknown origin (1 source) [...] [Other specified postprocedural states] Onset: 10-27-2024 Episodic Results Test Name Value Interpretation Reference Range Facility POCT GLUCOSE METER UNSOLICIT ED RESULTSon 05-10-2025 Glucose [Mass/Vol] 124 mg/dL High 70-105 [facility] Comment on above: Order Comment: Waive d Testing in the ED is performed under the ED CLIA certificate #[id number]. Result Comment: [email or web address] les Performed By: #### L [id number] #### [facility] ([facility]AKER) [address] [place] [address] Prep for Procedureon 025 Prep for Procedure [id number] Watson Arnett 1965 M Date Provider Department Center 03/30/20251986-MINDI VELASCO [facility] Family History Problem Relation Age of Onset No Known Problems Mother No Known Problems Father Family Status - Relation Status Age at Mother Father Alive [facility] Prep for Procedureon 025 Prep for Procedure [id number] Watson Arnett M 1965 M Date Provider Department Center 03/24/20251986-MINDI VELASCO [facility] SD [facility] Family History Problem Relation Age of Onset No Known Problems Mother No Known Problems Father Family Status - Relation Status Age at Mother Father Alive [facility] Follow-Upon 03-07-2025 Follow-Up [id number] Watson Arnett 1965 M Date Provider Department Center 03/07/2025 DARRYN FATIMA [facility]ARD [facility] Family History Problem Relation Age of Onset No Known Problems Mother No Known Problems Father Family Status - Relation Status Age at Mother Father Alive Level of Service:[id number] [place] OFFICE/OUTPATIENT NEW MODERATE MDM 45 MINUTES [facility] 02-22-2025 36 Patient called back very upset that his call from Tuesday 02/20 was not returned. I advised him of medication changes and they were sent into his pharmacy. He has follow up apt with Dr. Lundy on 03/07/2025. Patient verbalized understanding. [facility] 02-21-2025 36 We can start him on diltiazem 120mg daily to try to help control his HR. While this can also affect BP, would like to change carvedilol to Toprol 25mg daily to try to help prevent low BP. He should monitor his BP and HR 2 hours after medications and bring in readings to his next visit. [facility] Orders Only02-17-2025 Orders Only [id number] Watson Arnett 1965 M Date Provider Department Center 02/17/2025 DARRYN FATIMA [facility] CARD [facility] Family History Problem Relation Age of Onset No Known Problems Mother No Known Problems Father Family Status - Relation Status Age at Mother Father [facility] 02-03-2025 36 Patient informed. I also told him he could take an extra dose of carvedilol (3.125mg) if he felt his heart race again. Says about 1 hour after he spoke with me yesterday he started to feel fine again. Has felt fine today also. Advised patient to go to the ED if symptoms worsen. He verbalized understanding. [facility] 02-02-2025 36 Patient called to horace valente aware that yesterday and today he feels [...] to the ED. Any suggestions? Thanks. Normal [facility] Office Visiton 01-31-2025 Follow-up visit [id number] DavidWatson jaime 1965 M Date Provider Department Center 01/31/2025 271-ADONIS WEBSTER CARD [facility] Family History Problem Relation Age of Onset No Known Problems Mother No Known Problems Father Family Status - Relation Status Age at Mother Father Level of Service:[id number] [place] OFFICE/OUTPATIENT ESTABLISHED MOD MDM 30 MIN Normal [facility] 30on 01-18-2025 30 Daily Case Managemen t [...] PT Recommendations: OT Recommendations: New Consults: Normal [facility] BASIC METABOLIC PANELon 01-03 Anion gap [Moles/Vol] 10 mmol/L Normal 7-20 [facility] Comment on above: Performed By: #### L [id number] #### [facility] ([facility]) [address] [place] [address] Calcium [Mass/Vol] 8.2 mg/dL Low 8.6-10.3 [facility] Comment on above: Performed By: #### L [id number] #### [facility] ([facility]) [address] [place] [address] Chloride [Moles/Vol] 106 mmol/L Normal 98-107 [facility] Comment on above: Performed By: #### L [id number] #### [facility] [address] [place] [address] CO2 [Moles/Vol] 24 mmol/L Normal 21-31 [facility] Comment on above: Performed By: #### L [id number] #### [facility] ([facility] [address] [place] [address] Creatinine [Mass/Vol] 1.24 mg/dL Normal 0.60-1.30 [facility] Comment on above: Performed By: #### L [id number] #### [facility] ([facility]) [address] [place] [address] GLOMERULAR FILTRATION RATE ML/MIN/1.73 SQ M.PREDICTED 50.8 mL/min/1.73m*2 Low >60.0 [facility] Comment on above: Result Comment: [facility]???s estimated glomerular filtration rate (eGFR) will no [...] group of individuals. Performed By: #### L [id number] #### [facility] ([facility]) [address] [place] [address] Glucose [Mass/Vol] 128 mg/dL High 70-100 [facility] Comment on above: Performed By: #### L [id number] #### [facility] ([facility] [address] [place] [address] Potassium [Moles/Vol] 4.0 mmol/L Normal 3.5-5.1 [facility] Comment on above: Performed By: #### L [id number] #### [facility] ([facility] [address] [place] [address] Sodium [Moles/Vol] 136 mmol/L Normal 136-145 [facility] Comment on above: Performed By: #### L [id number] #### [facility] ([facility]) [address] [place] [address] Urea nitrogen [Mass/Vol] 16 mg/dL Normal 7-25 [facility] Comment on above: Performed By: #### L [id number] #### [facility] ([facility]) [address] [place] [address] UREA NITROGEN/CREATININE (MASS RATIO) IN SER/PLAS 12.9 Normal [facility] Comment on above: Performed By: #### L [id number] #### [facility] ([facility]) [address] [place] [address] CBC WITH AUTO DIFFERENTIALon 01-18-2025 Basophils (Bld) [#/Vol] 0.03 10*3/uL Normal 0.00-0.20 [facility] Comment on above: Performed By: #### L [id number] #### [facility] ([facility]) [address] [place] [address] Basophils/100 WBC (Bld) 0.4 % Normal 0.0-1.0 [facility] Comment on above: Performed By: #### L [id number] #### [facility] ([facility]) [address] [place] [address] Eosinophils (Bld) [#/Vol] 0.20 10*3/uL Normal 0.00-0.50 [facility] Comment on above: Performed By: #### L [id number] #### [facility] ([facility]) [address] [place] [address] Eosinophils/100 WBC (Bld) 2.6 % Normal 0.0-6.0 [facility] Comment on above: Performed By: #### L [id number] #### [facility] ([facility]) [address] [place] [address] Erythrocyte distribution width (RBC) [Ratio] 14.6 % Normal 11.5-15.0 [facility] Comment on above: Performed By: #### L [id number] #### [facility] ([facility]) [address] [place] [address] ERYTHROCYTE MEAN CORPUSCULAR HEMOGLOBIN CONCENTRATION (G/DL) BY AUTOMATED 33.3 g/dL Normal 32.0-35.0 [facility] Comment on above: Performed By: #### L [id number] #### [facility] ([facility]) [address] [place] [address] Hematocrit (Bld) [Volume fraction] 45.0 % Normal 36.0-50.0 [facility] Comment on above: Performed By: #### L [id number] #### [facility] ([facility]) [address] [place] [address] Hemoglobin (Bld) [Mass/Vol] 15.0 g/dL Normal 12.0-17.0 [facility] Comment on above: Performed By: #### L [id number] #### [facility] ([facility]) [address] [place] [address] Immature granulocytes (Bld) [#/Vol] 0.01 10*3/uL Normal 0.00-0.20 [facility] Comment on above: Performed By: #### L [id number] #### [facility] ([facility]) [address] [place] [address] Immature granulocytes/100 WBC (Bld) 0.1 % Normal 0.0-1.0 [facility] Comment on above: Performed By: #### L [id number] #### [facility] ([facility]) [address] [place] [address] Lymphocytes (Bld) [#/Vol] 1.73 10*3/uL Normal 1.20-4.00 [facility] Comment on above: Performed By: #### L [id number] #### [facility] ([facility]) [address] [place] [address] Lymphocytes/100 WBC (Bld) 22.7 % Normal 20.0-45.0 [facility] Comment on above: Performed By: #### L [id number] #### [facility] ([facility]) [address] [place] [address] MCH (RBC) [Entitic mass] 27.1 pg Normal 27.0-33.0 [facility] Comment on above: Performed By: #### L [id number] #### [facility] ([facility]) [address] [place] [address] MCV (RBC) [Entitic vol] 81.2 fL Low 82.0-98.0 [facility] Comment on above: Performed By: #### L [id number] #### [facility] ([facility]) [address] [place] [address] Monocytes (Bld) [#/Vol] 0.71 10*3/uL Normal 0.10-1.00 [facility] Comment on above: Performed By: #### L [id number] #### [facility] ([facility]) [address] [place] [address] Monocytes/100 WBC (Bld) 9.3 % Normal 5.0-12.0 [facility] Comment on above: Performed By: #### L [id number] #### [facility] ([facility]) [address] [place] [address] Neutrophils (Bld) [#/Vol] 4.95 10*3/uL Normal 1.60-7.60 [facility] Comment on above: Performed By: #### L [id number] #### [facility] ([facility]) [address] [place] [address] Neutrophils/100 WBC (Bld) 64.9 % Normal 40.0-72.0 [facility] Comment on above: Performed By: #### L [id number] #### [facility] ([facility]) [address] [place] [address] NRBC (PER 100 WBCS) BY AUTOMATED COUNT 0.0 % Normal 0 [facility] Comment on above: Performed By: #### L [id number] #### [facility] ([facility]) [address] [place] [address] PLATELETS (10*3/UL) IN BLOOD AUTOMATED COUNT 219 10*3/uL Normal 150-400 [facility] Comment on above: Performed By: #### L [id number] #### [facility] ([facility]) [address] [place] [address] RBC (Bld) [#/Vol] 5.54 10*6/uL Normal 3.80-5.70 [facility] Comment on above: Performed By: #### L [id number] #### [facility] ([facility]) [address] [place] [address] WBC (Bld) [#/Vol] 7.63 10*3/uL Normal 4.00-10.60 [facility] Comment on above: Performed By: #### L [id number] #### [facility] ([facility]) [address] [place] [address] DSon 01-18-2025 DS -- Attestation signed by Champ Caceres MD at 01/20/2025 12:31 PM Patient was seen and examined with the resident on the same date of service, I discussed the findings and therapeutic plan with the resident/fellow, I agree with the documentation, assessment and plan as above except for any edits/updates below. Champ Caceres MD director of sports medicine Pulmonary and critical care department [id number] Admission Admitted 01/16/2025 for Bradycardia Discharge Diagnosis Primary Symptomatic severe sinus bradycardia Shock, cardiogenic from bradycardia arrhythmias Unstable angina Tachybrady syndrome Secondary Heart failure with preserved ejection fraction Mitral valve prolapse with regurgitation s/p mitral valve repair Essential hypertension Kjv-sldkysi-gtezpksuf type 2 diabetes mellitus Discharge Disposition Home [...] hen 5-325 mg tablet Commonly known as: [place] lisinopril 10 mg tablet Take 1 tablet (10 mg) by mouth in the morning. pantoprazole 40 mg EC tablet Commonly known as: ProtoNix simvastatin 20 mg tablet Commonly known as: Zocor Where to Get Your Medications These medications were sent to [facility] - [address] [place] [address] [address] [facility] [place] [address], [facility] [address] apixaban 5 mg tablet Activity Normal activity as tolerated Diet Patient currently has no discharge diet orders Allergies Patient has no known allergies. Hospital Course Flynn Arnett is a 59 y.o. adult with a past medical history of heart failure with preserved ejection fraction, hypertension, mitral valve prolapse with regurgitation s/p mitral valve repair, hyperlipidemia, iag-fcceugs-qznsmvfed type 2 diabetes, AAA who presents as a transfer from [facility]. Patient developed left lower chest pain yesterday, [...] had racing heartbeat. He went to the [facility] with these complaints, where reportedly his heart [...] to 30 bpm. He was transferred to [facility] for higher level of care. At [facility], his heart rate was at his baseline [...] discharge, libia (more content not included)... Normal [facility] Letter (Out)on 01-18-2025 Letter (Out) [id number] Watson Arnett 1965 M Date Provider Department Center 01/18/2025 [id number], GENERIC PRO*INIT None Family History Problem Relation Age of Onset No Known Problems Mother No Known Problems Father Family Status - Relation Status Age at Mother Father Normal [facility] MAGNESIUMon 01-18-2025 Magnesium [Mass/Vol] 2.0 mg/dL Normal 1.9-2.7 [facility] Comment on above: Performed By: #### L [id number] #### [facility] ([facility]) [address] [place] [address] PHOSPHORUSon 01-18-2025 Magnesium [Mass/Vol] 3.8 mg/dL Normal 2.5-5.0 [facility] Comment on above: Performed By: #### L [id number] #### [facility] ([facility]) [address] [place] [address] POCT GLUCOSE METER UNSOLICIT ED RESULTSon 01-18-2025 Glucose [Mass/Vol] 168 mg/dL High 70-105 [facility] Comment on above: Order Comment: Waive d Testing in the ED is performed under the ED CLIA certificate #[id number]. Result Comment: [email or web address] Performed By: #### L [id number] ####[facility] ([facility])[address] [place] [address] 30on 01-17-2025 30 Daily Case Managemen t Update Multidisciplinary rounds have been completed. Barriers to Discharge: 01/17- patient with cardiac history, TVAR 2 yeara ago, was at [facility] with CP, was in afib RVR, had [...] PT Recommendations: OT Recommendations: New Consults: Normal [facility] BASIC METABOLIC PANELon 01-03 Anion gap [Moles/Vol] 9 mmol/L Normal 7-20 [facility] Comment on above: Performed By: #### L [id number] #### [facility] ([facility]) [address] [place] [address] Calcium [Mass/Vol] 8.2 mg/dL Low 8.6-10.3 [facility] Comment on above: Performed By: #### L [id number] #### [facility] ([facility]) [address] [place] [address] Chloride [Moles/Vol] 109 mmol/L High 98-107 [facility] Comment on above: Performed By: #### L [id number] #### [facility] ([facility]) [address] [place] [address] CO2 [Moles/Vol] 24 mmol/L Normal 21-31 [facility] Comment on above: Performed By: #### L [id number] #### [facility] ([facility]) [address] [place] [address] Creatinine [Mass/Vol] 1.24 mg/dL Normal 0.60-1.30 [facility] Comment on above: Performed By: #### L [id number] #### [facility] ([facility]) [address] [place] [address] GLOMERULAR FILTRATION RATE ML/MIN/1.73 SQ M.PREDICTED 50.8 mL/min/1.73m*2 Low >60.0 [facility] Comment on above: Result Comment: [facility]???s estimated glomerular filtration rate (eGFR) will no [...] group of individuals. Performed By: #### L [id number] #### [facility] ([facility]) [address] [place] [address] Glucose [Mass/Vol] 120 mg/dL High 70-100 [facility] Comment on above: Performed By: #### L [id number] #### [facility] ([facility]) [address] [place] [address] Potassium [Moles/Vol] 4.1 mmol/L Normal 3.5-5.1 [facility] Comment on above: Performed By: #### L [id number] #### [facility] ([facility]) [address] [place] [address] Sodium [Moles/Vol] 138 mmol/L Normal 136-145 [facility] Comment on above: Performed By: #### L [id number] #### [facility] ([facility]) [address] [place] [address] Urea nitrogen [Mass/Vol] 15 mg/dL Normal 7-25 [facility] Comment on above: Performed By: #### L [id number] #### [facility] ([facility]) [address] [place] [address] UREA NITROGEN/CREATININE (MASS RATIO) IN SER/PLAS 12.1 Normal [facility] Comment on above: Performed By: #### L [id number] #### [facility] ([facility]) [address] [place] [address] CBC WITH AUTO DIFFERENTIALon 01-17-2025 Basophils (Bld) [#/Vol] 0.03 10*3/uL Normal 0.00-0.20 [facility] Comment on above: Performed By: #### L [id number] #### [facility] ([facility]) [address] [place] [address] Basophils/100 WBC (Bld) 0.4 % Normal 0.0-1.0 [facility] Comment on above: Performed By: #### L [id number] #### [facility] ([facility]) [address] [place] [address] Eosinophils (Bld) [#/Vol] 0.26 10*3/uL Normal 0.00-0.50 [facility] Comment on above: Performed By: #### L [id number] #### [facility] ([facility]) [address] [place] [address] Eosinophils/100 WBC (Bld) 3.8 % Normal 0.0-6.0 [facility] Comment on above: Performed By: #### L [id number] #### [facility] ([facility]) [address] [place] [address] Erythrocyte distribution width (RBC) [Ratio] 14.6 % Normal 11.5-15.0 [facility] Comment on above: Performed By: #### L [id number] #### [facility] ([facility]) [address] [place] [address] ERYTHROCYTE MEAN CORPUSCULAR HEMOGLOBIN CONCENTRATION (G/DL) BY AUTOMATED 31.7 g/dL Low 32.0-35.0 [facility] Comment on above: Performed By: #### L [id number] #### [facility] ([facility]) [address] [place] [address] Hematocrit (Bld) [Volume fraction] 43.9 % Normal 36.0-50.0 [facility] Comment on above: Performed By: #### L [id number] #### [facility] ([facility]) [address] [place] [address] Hemoglobin (Bld) [Mass/Vol] 13.9 g/dL Normal 12.0-17.0 [facility] Comment on above: Performed By: #### L [id number] #### [facility] ([facility]) [address] [place] [address] Immature granulocytes (Bld) [#/Vol] 0.02 10*3/uL Normal 0.00-0.20 [facility] Comment on above: Performed By: #### L [id number] #### [facility] ([facility]) [address] [place] [address] Immature granulocytes/100 WBC (Bld) 0.3 % Normal 0.0-1.0 [facility] Comment on above: Performed By: #### L [id number] #### [facility] ([facility]) [address] [place] [address] Lymphocytes (Bld) [#/Vol] 1.91 10*3/uL Normal 1.20-4.00 [facility] Comment on above: Performed By: #### L [id number] #### [facility] [address] [place] [address] Lymphocytes/100 WBC (Bld) 28.2 % Normal 20.0-45.0 [facility] Comment on above: Performed By: #### L [id number] #### [facility] ([facility]) [address] [place] [address] MCH (RBC) [Entitic mass] 27.0 pg Normal 27.0-33.0 [facility] Comment on above: Performed By: #### L [id number] #### [facility] ([facility]) [address] [place] [address] MCV (RBC) [Entitic vol] 85.4 fL Normal 82.0-98.0 [facility] Comment on above: Performed By: #### L [id number] #### [facility] ([facility] [address] [place] [address] Monocytes (Bld) [#/Vol] 0.54 10*3/uL Normal 0.10-1.00 [facility] Comment on above: Performed By: #### L [id number] #### [facility] ([facility]) [address] [place] [address] Monocytes/100 WBC (Bld) 8.0 % Normal 5.0-12.0 [facility] Comment on above: Performed By: #### L [id number] #### [facility] ([facility] [address] [place] [address] Neutrophils (Bld) [#/Vol] 4.01 10*3/uL Normal 1.60-7.60 [facility] Comment on above: Performed By: #### L [id number] #### [facility] ([facility]) [address] [place] [address] Neutrophils/100 WBC (Bld) 59.3 % Normal 40.0-72.0 [facility] Comment on above: Performed By: #### L [id number] #### [facility] ([facility]) [address] [place] [address] NRBC (PER 100 WBCS) BY AUTOMATED COUNT 0.0 % Normal 0 [facility] Comment on above: Performed By: #### L [id number] #### [facility] ([facility]) [address] [place] [address] PLATELETS (10*3/UL) IN BLOOD AUTOMATED COUNT 198 10*3/uL Normal 150-400 [facility] Comment on above: Performed By: #### L [id number] #### [facility] ([facility]) [address] [place] [address] RBC (Bld) [#/Vol] 5.14 10*6/uL Normal 3.80-5.70 [facility] Comment on above: Performed By: #### L [id number] #### [facility] ([facility]) [address] [place] [address] WBC (Bld) [#/Vol] 6.77 10*3/uL Normal 4.00-10.60 [facility] Comment on above: Performed By: #### L [id number] #### [facility] ([facility]) [address] [place] [address] HPon 01-17-2025 HP H&P reviewed. The patient was examined and there are no changes to the H&P. Normal [facility] MAGNESIUMon 01-17-2025 Magnesium [Mass/Vol] 2.0 mg/dL Normal 1.9-2.7 [facility] Comment on above: Performed By: #### L [id number] #### [facility] ([facility]) [address] [place] [address] PHOSPHORUSon 01-17-2025 Magnesium [Mass/Vol] 3.4 mg/dL Normal 2.5-5.0 [facility] Comment on above: Performed By: #### L [id number] #### [facility] ([facility]) [address] [place] [address] POCT GLUCOSE METER UNSOLICIT ED RESULTSon 01-17-2025 Glucose [Mass/Vol] 153 mg/dL High 70-105 [facility] Comment on above: Order Comment: Waive d Testing in the ED is performed under the ED CLIA certificate #[id number]. Result Comment: [email or web address] eal Performed By: #### L [id number] #### [facility] ([facility]) [address] [place] [address] Glucose [Mass/Vol] 89 mg/dL Normal 70-105 [facility] Comment on above: Order Comment: Waive d Testing in the ED is performed under the ED CLIA certificate #[id number]. Result Comment: [email or web address] Performed By: #### L [id number] ####[facility] ([facility])[address] [place] [address] 30on 01-16-2025 30 The patient is Moderately [...] emotional support, repositioning, music therapy, distraction. Normal [facility] BLOOD CULTUREon 01-16-2025 Bacteria identified Cx Nom (Bld) No growth at 5 days Normal [facility] Comment on above: Order Comment: From a different site than #1. Performed By: #### L [id number] ####[facility] ([facility])[address] [place] [address] CBC WITH AUTO DIFFERENTIALon 01-16-2025 Basophils (Bld) [#/Vol] 0.02 10*3/uL Normal 0.00-0.20 [facility] Comment on above: Performed By: #### L [id number] #### [facility] ([facility]) [address] [place] [address] Basophils/100 WBC (Bld) 0.3 % Normal 0.0-1.0 [facility] Comment on above: Performed By: #### L [id number] #### [facility] [address] [place] [address] Eosinophils (Bld) [#/Vol] 0.23 10*3/uL Normal 0.00-0.50 [facility] Comment on above: Performed By: #### L [id number] #### [facility] ([facility]) [address] [place] [address] Eosinophils/100 WBC (Bld) 3.6 % Normal 0.0-6.0 [facility] Comment on above: Performed By: #### L [id number] #### [facility] ([facility]) [address] [place] [address] Erythrocyte distribution width (RBC) [Ratio] 14.8 % Normal 11.5-15.0 [facility] Comment on above: Performed By: #### L [id number] #### [facility] ([facility]) [address] [place] [address] ERYTHROCYTE MEAN CORPUSCULAR HEMOGLOBIN CONCENTRATION (G/DL) BY AUTOMATED 32.4 g/dL Normal 32.0-35.0 [facility] Comment on above: Performed By: #### L [id number] #### [facility] ([facility]) [address] [place] [address] Hematocrit (Bld) [Volume fraction] 43.5 % Normal 36.0-50.0 [facility] Comment on above: Performed By: #### L [id number] #### [facility] ([facility]) [address] [place] [address] Hemoglobin (Bld) [Mass/Vol] 14.1 g/dL Normal 12.0-17.0 [facility] Comment on above: Performed By: #### L [id number] #### [facility] [address] [place] [address] Immature granulocytes (Bld) [#/Vol] 0.02 10*3/uL Normal 0.00-0.20 [facility] Comment on above: Performed By: #### L [id number] #### [facility] ([facility]) [address] [place] [address] Immature granulocytes/100 WBC (Bld) 0.3 % Normal 0.0-1.0 [facility] Comment on above: Performed By: #### L [id number] #### [facility] ([facility]) [address] [place] [address] Lymphocytes (Bld) [#/Vol] 1.86 10*3/uL Normal 1.20-4.00 [facility] Comment on above: Performed By: #### L [id number] #### [facility] ([facility]) [address] [place] [address] Lymphocytes/100 WBC (Bld) 28.8 % Normal 20.0-45.0 [facility] Comment on above: Performed By: #### L [id number] #### [facility] ([facility]) [address] [place] [address] MCH (RBC) [Entitic mass] 27.3 pg Normal 27.0-33.0 [facility] Comment on above: Performed By: #### L [id number] #### [facility] ([facility]) [address] [place] [address] MCV (RBC) [Entitic vol] 84.1 fL Normal 82.0-98.0 [facility] Comment on above: Performed By: #### L [id number] #### [facility] ([facility]) [address] [place] [address] Monocytes (Bld) [#/Vol] 0.54 10*3/uL Normal 0.10-1.00 [facility] Comment on above: Performed By: #### L [id number] #### [facility] [address] [place] [address] Monocytes/100 WBC (Bld) 8.4 % Normal 5.0-12.0 [facility] Comment on above: Performed By: #### L [id number] #### [facility] ([facility]) [address] [place] [address] Neutrophils (Bld) [#/Vol] 3.78 10*3/uL Normal 1.60-7.60 [facility] Comment on above: Performed By: #### L [id number] #### [facility] ([facility]) [address] [place] [address] Neutrophils/100 WBC (Bld) 58.6 % Normal 40.0-72.0 [facility] Comment on above: Performed By: #### L [id number] #### [facility] ([facility]) [address] [place] [address] NRBC (PER 100 WBCS) BY AUTOMATED COUNT 0.0 % Normal 0 [facility] Comment on above: Performed By: #### L [id number] #### [facility] ([facility]) [address] [place] [address] PLATELETS (10*3/UL) IN BLOOD AUTOMATED COUNT 215 10*3/uL Normal 150-400 [facility] Comment on above: Performed By: #### L [id number] #### [facility] ([facility]) [address] [place] [address] RBC (Bld) [#/Vol] 5.17 10*6/uL Normal 3.80-5.70 [facility] Comment on above: Performed By: #### L [id number] #### [facility] ([facility]) [address] [place] [address] WBC (Bld) [#/Vol] 6.45 10*3/uL Normal 4.00-10.60 [facility] Comment on above: Performed By: #### L [id number] #### [facility] ([facility]) [address] [place] [address] COMPREHENSIVE METABOLIC PANE Renny 01-16-2025 Albumin [Mass/Vol] 3.8 g/dL Normal 3.5-5.7 [facility] Comment on above: Performed By: #### L [id number] ####[facility] ([facility])[address] [place] [address] ALP [Catalytic activity/Vol] 47 U/L Normal 34-104 [facility] Comment on above: Performed By: #### L [id number] ####[facility] ([facility])[address] [place] [address] ALT [Catalytic activity/Vol] 21 U/L Normal 7-52 [facility] Comment on above: Performed By: #### L [id number] ####[facility] ([facility])[address] [place] [address] Anion gap [Moles/Vol] 10 mmol/L Normal 7-20 [facility] Comment on above: Performed By: #### L [id number] ####[facility] ([facility] [place] [address] AST [Catalytic activity/Vol] 18 U/L Normal 13-39 [facility] Comment on above: Performed By: #### L [id number] ####[facility] ([facility])[address] [place] [address] Bilirubin [Mass/Vol] 0.8 mg/dL Normal 0.3-1.0 [facility] Comment on above: Performed By: #### L [id number] ####[facility] ([facility])[address] [place] [address] Calcium [Mass/Vol] 8.3 mg/dL Low 8.6-10.3 [facility] Comment on above: Performed By: #### L [id number] ####[facility] ([facility] [place] [address] Chloride [Moles/Vol] 111 mmol/L High 98-107 [facility] Comment on above: Performed By: #### L [id number] ####[facility] ([facility])[address] [place] [address] CO2 [Moles/Vol] 22 mmol/L Normal 21-31 [facility] Comment on above: Performed By: #### L [id number] ####[facility] ([facility] [place] [address] Creatinine [Mass/Vol] 1.12 mg/dL Normal 0.60-1.30 [facility] Comment on above: Performed By: #### L [id number] ####[facility] ([facility])[address] [place] [address] GLOMERULAR FILTRATION RATE ML/MIN/1.73 SQ M.PREDICTED 57.4 mL/min/1.73m*2 Low >60.0 [facility] Comment on above: Result Comment: The [facility]???s estimated glomerular filtration rate (eGFR) will no [...] of individuals. Performed By: #### L [id number] ####[facility] ([facility])[address] [place] [address] Glucose [Mass/Vol] 97 mg/dL Normal 70-100 [facility] Comment on above: Performed By: #### L [id number] ####[facility] ([facility])[address] [place] [address] Potassium [Moles/Vol] 4.1 mmol/L Normal 3.5-5.1 [facility] Comment on above: Performed By: #### L [id number] ####[facility] ([facility] [place] [address] Protein [Mass/Vol] 5.9 g/dL Low 6.0-8.3 [facility] Comment on above: Performed By: #### L [id number] ####[facility] ([facility] [place] [address] Sodium [Moles/Vol] 139 mmol/L Normal 136-145 [facility] Comment on above: Performed By: #### L [id number] ####[facility] ([facility])[address] [place] [address] Urea nitrogen [Mass/Vol] 16 mg/dL Normal 7-25 [facility] Comment on above: Performed By: #### L [id number] ####[facility] ([facility])[address] [place] [address] UREA NITROGEN/CREATININE (MASS RATIO) IN SER/PLAS 14.3 Normal [facility] Comment on above: Performed By: #### L [id number] ####[facility] ([facility])[address] [place] [address] CONSULTon 01-16-2025 CONSULT Cardiology Consult Note Reason for Consult: bradycardia, chest pain HPI: Flynn Arnett is a 59 y.o. adult with a past medical history heart failure with preserved ejection fraction, hypertension, severe MR s/p mitral valve repair/annuloplasty, left atrial appendage clip, PFO closure, hyperlipidemia, AAA, DM2 who presents as a transfer from [facility]. Patient reports left-sided chest pain which started [...] for his mitral valve. Patient presented to [facility] with these complaints and was found to [...] to 30 bpm. He was transferred to [facility] for higher level of care. At [facility], his heart rate was at his baseline [...] mg, oral, 2 times daily HYDROcodone-acetaminop hen ([place]) 5-325 mg tablet 1 tablet, oral, Every [...] on 06/30/2023) 120 capsule 0 HYDROcodone-acetaminop hen ([place]) 5-325 mg tablet Take 1 tablet by mouth every 4 (four) hours if needed. lisinopril 10 mg tablet Take 1 tablet (10 mg) by mouth in the morning. (Patient taking differ (more content not included)... Normal [facility] HEMOGLOBIN A1Con 01-16-2025 Glucose [Mass/Vol] 143 mg/dL Normal [facility] Comment on above: Performed By: #### L [id number] #### [facility] ([facility]) [address] [place] [address] HbA1c (Bld) [Mass fraction] 6.6 % High 4.0-6.0 [facility] Comment on above: Performed By: #### L [id number] #### [facility] ([facility]) [address] [place] [address] HIGH SENSITIVITY TROPONIN Io n 01-16-2025 HS TROPONIN I (NG/L) 54 ng/L Critically high <18 [facility] Comment on above: Performed By: #### L [id number] ####[facility] ([facility])[address] [place] [address] HS TROPONIN I (NG/L) 55 ng/L Critically high <18 [facility] Comment on above: Performed By: #### L [id number] #### [facility] ([facility]) [address] [place] [address] HPon 01-16-2025 HP Reason For Consult chest pain, sinus leann, new onset afib Referring Provider: Lauren Velasquez MD, [facility] History Of Present Illness Flynn Arnett is a 59 y.o. adult presenting with bradycardia and chest pain. He states for several months now he has been limited physically, especially while climbing stairs He can do 5-10 and then has to stop due to SOB and chest discomfort that is non-radiating, mild in severity, and relieved with rest. In [facility] ER, above noted and he was significantly [...] on 06/30/2023) 120 capsule 0 HYDROcodone-acetaminop hen ([place]) 5-325 mg tablet Take 1 tablet by [...] 81 mg oral Daily 81 mg at 01/16/251904 glucose 24 g oral q15 min PRN Or dextrose 50 % in water (D50W) 25 g intravenous q15 min PRN ezetimibe 10 mg oral Daily 10 mg at 01/16/251904 insulin lispro 0-5 Units subcutaneous TID with [...] Final Atrial Rate 01/16/2025 49 BPM Final [place] Interval 01/16/2025 190 ms Final QRS DURATION 01/16/2025 84 ms Final QT Interval 01/16/2025 480 ms Final QTC CALCULATION(BAZETT) 01/16/2025 433 ms Final R-[place] 01/16/2025 47 degrees Final T Wave [place] 01/16/2025 71 degrees Final Sodium 01/16/2025 139 136 - 145 mmol/L Final Potassium 01/16/2025 4.1 3.5 - 5.1 mmol/L Final Chloride 0 (more content not included)... [facility] -- Attestation signed by Champ Caceres MD at 01/17/2025 10:12 AM The patient was evaluated with the resident/fellow Flynn Arnett is a 59 y.o. adult with a past medical history of heart failure with preserved ejection fraction, hypertension, mitral valve prolapse with regurgitation s/p mitral valve repair, hyperlipidemia, vkk-cbgrblz-qdoszfunk type 2 diabetes, AAA who presents as a transfer from [facility] for chest pain Critical Care services were [...] Arnett Age - 59 y.o. - 1965 N - [id number] [facility] # - [id number] Date of Admission - 01/16/2025 2:24 PM Chief Complaint History of Present Illness Flynn Arentt is a 59 y.o. adult with a past medical history of heart failure with preserved ejection fraction, hypertension, mitral valve prolapse with regurgitation s/p mitral valve repair, hyperlipidemia, wtn-iulqfht-cufabdomh type 2 diabetes, AAA who presents as a transfer from [facility]. Patient developed left lower chest pain yesterday, [...] had racing heartbeat. He went to the [facility] with these complaints, where reportedly his heart [...] to 30 bpm. He was transferred to [facility] for higher level of care. At [facility], his heart rate was at his baseline [...] mL, 10 mL, intravenous, q8h PRN, Monica rBown MD Allergies: Patient has no known allergies. Family history: family history includes No Known Problems in Flynn's father and mother. Review of Systems: @PHAM@ Physical Exam Ht Readings from Last 1 [...] Soft, nontender, (more content not included)... Normal [facility] LACTIC ACID WITH 4 HOUR REFL EXon 01-16-2025 LACTATE (MMOL/L) IN SER/PLAS 0.7 mmol/L Normal 0.5-2.2 [facility] Comment on above: Performed By: #### L [id number] #### [facility] ([facility]) [address] [place] [address] LIPID PANELon 01-16-2025 CHOL/HDL 5.3 mg/dL Normal [facility] Comment on above: Performed By: #### L [id number] ####[facility] ([facility])[address] [place] [address] Cholesterol [Mass/Vol] 169 mg/dL Normal 120-200 [facility] Comment on above: Performed By: #### L [id number] ####[facility] ([facility])[address] [place] [address] Magnesium [Mass/Vol] 103 mg/dL Normal <150 [facility] Comment on above: Result Comment: TRIG LYCERIDE REFERENCE RANGE: 20 YEARS AND OLDER CARDIOVASCULAR RISK LESS THAN 150 mg/dL LOW RISK 150 TO 199 mg/dL BORDERLINE RISK 200 mg/dL AND GREATER HIGH RISK Performed By: #### L [id number] ####[facility] ([facility])[address] [place] [address] Magnesium [Mass/Vol] 116 mg/dL Normal 0-160 [facility] Comment on above: Performed By: #### L [id number] ####[facility] ([facility])[address] [place] [address] Magnesium [Mass/Vol] 32 mg/dL Normal 23-92 [facility] Comment on above: Performed By: #### L [id number] ####[facility] ([facility])[address] [place] [address] NON HDL CHOL. (LDL+VLDL) 137 Normal [facility] Comment on above: Performed By: #### L [id number] ####[facility] ([facility])[address] [place] [address] TOTAL VLDL-C 21 mg/dL Normal 0-40 [facility] Comment on above: Performed By: #### L [id number] ####[facility] ([facility])[address] [place] [address] POCT GLUCOSE METER UNSOLICIT ED RESULTSon 01-16-2025 Glucose [Mass/Vol] 105 mg/dL Normal 70-105 [facility] Comment on above: Order Comment: Waive d Testing in the ED is performed under the ED CLIA certificate #[id number]. Result Comment: pmen doz Performed By: #### L [id number] ####[facility] ([facility])[address] [place] [address] Glucose [Mass/Vol] 124 mg/dL High 70-105 [facility] Comment on above: Order Comment: Waive d Testing in the ED is performed under the ED CLIA certificate #[id number]. Result Comment: tdel p Performed By: #### L [id number] #### [facility] ([facility]) [address] [place] [address] TSHon 01-16-2025 THYROTROPIN (MIU/L) IN SER/PLAS BY DETECTION LIMIT <= 0.05 MIU/L 1.64 mIU/L Normal 0.34-5.60 [facility] Comment on above: Performed By: #### L [id number] #### [facility] ([facility]) [address] [place] [address] Office Visiton 12-06-2024 Follow-up visit [id number] Watson Arnett M 1965 M Date Provider Department Center 12/06/2024 [facility] Family History Problem Relation Age of Onset No Known Problems Mother No Known Problems Father Family Status - Relation Status Age at Mother Father Level of Service:40047 [place] OFFICE/OUTPATIENT ESTABLISHED MOD MDM 30 MIN Normal [facility] Office Visiton 10-27-2024 Follow-up visit [id number] Watson Arnett M 1965 M Date Provider Department Center 10/27/2024 271[facility]ONIS [facility] Family History Problem Relation Age of Onset No Known Problems Mother No Known Problems Father Family Status - Relation Status Age at Mother Father Level of Service:88430 [place] OFFICE/OUTPATIENT ESTABLISHED MOD MDM 30 MIN Normal [facility] CBC AUTO DIFFon 02-06-2023 BASO # 0.0 103/ul Normal 0.0-0.1 [facility] Comment on above: Performed By: #### C BC #### [facility] [address] [place] [address] Dr. John Bertrand Basophils/100 WBC (Bld) 0.4 % Normal 0.2-2.0 [facility] Comment on above: Performed By: #### C BC #### [facility] [address] [place] [address] Dr. John Bertrand EO # 0.2 103/ul Normal 0.0-0.7 [facility] Comment on above: Performed By: #### C BC #### [facility] [address] [place] [address] Dr. John Bertrand Eosinophils/100 WBC (Bld) 3.1 % Normal 0.9-7.0 [facility] Comment on above: Performed By: #### C BC #### [facility] [address] [place] [address] Dr. John Bertrand Erythrocyte distribution width (RBC) [Ratio] 13.9 % Normal 11.0-15.0 [facility] Comment on above: Performed By: #### C BC #### [facility] [address] [place] [address] Dr. John Bertrand Hematocrit (Bld) [Volume fraction] 43.8 % Normal 42.0-54.0 [facility] Comment on above: Performed By: #### C BC #### [facility] [address] [place] [address] Dr. John Bertrand Hemoglobin (Bld) [Mass/Vol] 14.4 g/dL Normal 14.0-18.0 [facility] Comment on above: Performed By: #### C BC #### [facility] [address] [place] [address] Dr. John Bertrand IG # 0.01 10e3/ul Normal 0.00-0.03 [facility] Comment on above: Performed By: #### C BC #### [facility] [address] [place] [address] Dr. John Bertrand IG % 0.2 % Normal 0.0-0.5 [facility] Comment on above: Performed By: #### C BC #### [facility] [address] [place] [address] Dr. John Bertrand LYMPH # 2.3 103/ul Normal 1.2-3.8 [facility] Comment on above: Performed By: #### C BC #### [facility] [address] [place] [address] Dr. John Bertrand Lymphocytes/100 WBC (Bld) 41.1 % Normal 20.5-60.0 [facility] Comment on above: Performed By: #### C BC #### [facility] [address] [place] [address] Dr. John Bertrand MANUAL DIFF REQ NO Normal [facility] Comment on above: Performed By: #### C BC #### [facility] [address] [place] [address] Dr. John Bertrand MCH (RBC) [Entitic mass] 27.6 pg Normal 25.9-34.0 [facility] Comment on above: Performed By: #### C BC #### [facility] [address] [place] [address] Dr. John Bertrand MCHC (RBC) [Mass/Vol] 32.9 g/dL Normal 29.9-35.2 [facility] Comment on above: Performed By: #### C BC #### [facility] [address] [place] [address] Dr. John Bertrand MCV (RBC) [Entitic vol] 83.9 fL Normal 80.0-94.0 [facility] Comment on above: Performed By: #### C BC #### [facility] [address] [place] [address] Dr. John Bertrand MONO # 0.5 103/ul Normal 0.3-0.8 [facility] Comment on above: Performed By: #### C BC #### [facility] [address] [place] [address] Dr. John Bertrand Monocytes/100 WBC (Bld) 9.0 % Normal 1.7-12.0 [facility] Comment on above: Performed By: #### C BC #### [facility] [address] [place] [address] Dr. John Bertrand NEUT # 2.5 103/ul Normal 1.4-6.5 [facility] Comment on above: Performed By: #### C BC #### [facility] [address] [place] [address] Dr. John Bertrand Neutrophils/100 WBC (Bld) 46.2 % Normal 43.0-75.0 [facility] Comment on above: Performed By: #### C BC #### [facility] [address] [place] [address] Dr. John Bertrand Platelet mean volume (Bld) [Entitic vol] 9.6 fL Normal 9.5-13.5 [facility] Comment on above: Performed By: #### C BC #### [facility] [address] [place] [address] Dr. John Bertrand PLT 223 103/ul Normal 150-450 [facility] Comment on above: Performed By: #### C BC #### [facility] [address] [place] [address] Dr. John Bertrand RBC 5.22 106/ul Normal 4.70-6.10 [facility] Comment on above: Performed By: #### C BC #### [facility] [address] [place] [address] Dr. John Bertrand WBC 5.5 103/ul Normal 4.0-11.0 [facility] Comment on above: Performed By: #### C BC #### [facility] [address] [place] [address] Dr. John Bertrand PROF CHEM 8 (BAS METB)on Anion gap [Moles/Vol] 9.3 mmol/L Normal [facility] Comment on above: Performed By: #### B MP #### [facility] [address] [place] [address] Dr. John Bertrand Calcium [Mass/Vol] 8.7 mg/dL Normal 8.5-10.1 [facility] Comment on above: Performed By: #### B MP #### [facility] [address] [place] [address] Dr. John Bertrand Chloride [Moles/Vol] 105 mmol/L Normal 98-107 [facility] Comment on above: Performed By: #### B MP #### [facility] [address] [place] [address] Dr. John Bertrand CO2 [Moles/Vol] 27.6 mmol/L Normal 21.0-32.0 [facility] Comment on above: Performed By: #### B MP #### [facility] [address] [place] [address] Dr. John Bertrand Creatinine [Mass/Vol] 1.28 mg/dL Normal 0.70-1.30 [facility] Comment on above: Performed By: #### B MP #### [facility] [address] [address] [address] John Bertrand EGFR-AF MOZAMBICAN >60 Normal >=60 [facility] Comment on above: Performed By: #### B MP #### [facility] [address] [address] [address] John Bertrand EGFR-NON AF MOZAMBICAN 58 mL/min/1.73m2 Critically low >=60 [facility] Comment on above: Performed By: #### B MP #### [facility] [address] [address] [address] John Bertrand Glucose [Mass/Vol] 137 mg/dL Critically high 74-106 T [facility] Comment on above: Performed By: #### B MP #### [facility] [address] [address] [address] John Bertrand Potassium [Moles/Vol] 3.9 mmol/L Normal 3.5-5.1 [facility] Comment on above: Performed By: #### B MP #### [facility] [address] [address] [address] John Bertrand Sodium [Moles/Vol] 138 mmol/L Normal 136-145 [facility] Comment on above: Performed By: #### B MP #### [facility] [address] [address] [address] John Bertrand Urea nitrogen [Mass/Vol] 16.0 mg/dL Normal 7.0-18.0 [facility] Comment on above: Performed By: #### B MP #### [facility] [address] [address] [address] John Bertrand Urea nitrogen/Creatinine [Mass ratio] 12.5 mg/mg Normal [facility] Comment on above: Performed By: #### B MP #### [facility] [address] [address] [address] John Bertrand CBC AUTO DIFFon 01-14-2023 BASO # 0.0 103/ul Normal 0.0-0.1 [facility] Comment on above: Performed By: #### C BC #### [facility] [address] [address] [address] John Bertrand Basophils/100 WBC (Bld) 0.6 % Normal 0.2-2.0 [facility] Comment on above: Performed By: #### C BC #### [facility] [address] [address] [address] John Bertrand EO # 0.1 103/ul Normal 0.0-0.7 [facility] Comment on above: Performed By: #### C BC #### [facility] [address] [place] [address] Dr. John Bertrand Eosinophils/100 WBC (Bld) 2.7 % Normal 0.9-7.0 [facility] Comment on above: Performed By: #### C BC #### [facility] [address] [place] [address] Dr. John Bertrand Erythrocyte distribution width (RBC) [Ratio] 13.9 % Normal 11.0-15.0 [facility] Comment on above: Performed By: #### C BC #### [facility] [address] [place] [address] Dr. John Bertrand Hematocrit (Bld) [Volume fraction] 44.8 % Normal 42.0-54.0 [facility] Comment on above: Performed By: #### C BC #### [facility] [address] [place] [address] Dr. John Bertrand Hemoglobin (Bld) [Mass/Vol] 14.8 g/dL Normal 14.0-18.0 [facility] Comment on above: Performed By: #### C BC #### [facility] [address] [place] [address] Dr. John Bertrand IG # 0.01 10e3/ul Normal 0.00-0.03 [facility] Comment on above: Performed By: #### C BC #### [facility] [address] [place] [address] Dr. John Bertrand IG % 0.2 % Normal 0.0-0.5 [facility] Comment on above: Performed By: #### C BC #### [facility] [address] [place] [address] Dr. John Bertrand LYMPH # 1.9 103/ul Normal 1.2-3.8 [facility] Comment on above: Performed By: #### C BC #### [facility] [address] [place] [address] Dr. John Bertrand Lymphocytes/100 WBC (Bld) 37.0 % Normal 20.5-60.0 [facility] Comment on above: Performed By: #### C BC #### [facility] [address] [place] [address] Dr. John Bertrand MANUAL DIFF REQ NO Normal [facility] Comment on above: Performed By: #### C BC #### [facility] [address] [place] [address] Dr. Jhon Bertrand MCH (RBC) [Entitic mass] 27.2 pg Normal 25.9-34.0 [facility] Comment on above: Performed By: #### C BC #### [facility] [address] [place] [address] Dr. John Bertrand MCHC (RBC) [Mass/Vol] 33.0 g/dL Normal 29.9-35.2 [facility] Comment on above: Performed By: #### C BC #### [facility] [address] [place] [address] Dr. John Bertrand MCV (RBC) [Entitic vol] 82.4 fL Normal 80.0-94.0 [facility] Comment on above: Performed By: #### C BC #### [facility] [address] [place] [address] Dr. John Bertrand MONO # 0.5 103/ul Normal 0.3-0.8 [facility] Comment on above: Performed By: #### C BC #### [facility] [address] [place] [address] Dr. John Bertrand Monocytes/100 WBC (Bld) 8.8 % Normal 1.7-12.0 [facility] Comment on above: Performed By: #### C BC #### [facility] [address] [address] [address] John Bertrand NEUT # 2.7 103/ul Normal 1.4-6.5 [facility] Comment on above: Performed By: #### C BC #### [facility] [address] [address] [address] John Bertrand Neutrophils/100 WBC (Bld) 50.7 % Normal 43.0-75.0 [facility] Comment on above: Performed By: #### C BC #### [facility] [address] [address] [address] John Bertrand Platelet mean volume (Bld) [Entitic vol] 9.5 fL Normal 9.5-13.5 [facility] Comment on above: Performed By: #### C BC #### [facility] [address] [place] [address] Dr. John Bertrand PLT 235 103/ul Normal 150-450 [facility] Comment on above: Performed By: #### C BC #### [facility] [address] [place] [address] Dr. John Bertrand RBC 5.44 106/ul Normal 4.70-6.10 [facility] Comment on above: Performed By: #### C BC #### [facility] [address] [place] [address] Dr. John Bertrand WBC 5.3 103/ul Normal 4.0-11.0 [facility] Comment on above: Performed By: #### C BC #### [facility] [address] [address] [address] John Bertrand FREE THYROXINE INDEX T7on FTI 2.16 Normal 1.30-4.50 [facility] Comment on above: Performed By: #### T SH, CMP, T7, LIPID ####[facility] [address] [address]Dr. John Bertrand T3U 36.0 % Normal 33.0-40.0 [facility] Comment on above: Performed By: #### T SH, CMP, T7, LIPID ####[facility] [address] [place], [place] [address]MpDr. John Bertrand T4 [Mass/Vol] 6.00 ug/dL Normal 4.50-12.10 [facility] Comment on above: Performed By: #### T SH, CMP, T7, LIPID ####[facility] [address] [place], [place] [address]QgAgnes Bertrand GLYCOHEMOGLOBIN A1Con 2022 ADA RECOMMENDATION SEE BELOW Normal [facility] Comment on above: Result Comment: ADA RECOMMENDED LIMIT 4.0 - 6.0 ADA THERAPEUTIC TARGET < 7.0 ACTION SUGGESTED > 7.0 Performed By: #### A 1C #### [facility] [address] [address] [address] John Bertrand Glucose [Mass/Vol] 154 mg/dL Normal [facility] Comment on above: Performed By: #### A 1C #### [facility] [address] [address] [address] John Bertrand HbA1c (Bld) [Mass fraction] 7.0 % Critically high 4.5-6.2 [facility] Comment on above: Performed By: #### A 1C #### [facility] [address] [address] [address] John Bertrand LIPID PROFILEon 01-14-2023 CHOL-HDL RATIO NORM SEE BELOW Normal [facility] Comment on above: Result Comment: 3.3 - 4.4 LOW RISK 4.4 - 7.1 AVERAGE RISK 7.1 - 11.0 MODERATE RISK >11.0 HIGH RISK Performed By: #### T SH, CMP, T7, LIPID ####[facility] [address] [place], [place] [address]TcAgnes Bertrand Cholesterol [Mass/Vol] 151 mg/dL Normal <=200 [facility] Comment on above: Performed By: #### T SH, CMP, T7, LIPID ####[facility] [address] [place], [place] [address]CwAgnes Bertrand Cholesterol in HDL [Mass/Vol] 36 mg/dL Critically low 40-60 [facility] Comment on above: Performed By: #### T SH, CMP, T7, LIPID ####[facility] [address] [id number]. Nataliebrenda Bertrand Cholesterol in LDL [Mass/Vol] 101.4 mg/dL Normal [facility] Comment on above: Performed By: #### T SH, CMP, T7, LIPID ####[facility] [address] [address]Dr. John Bertrand Cholesterol.total/Ch olesterol in HDL [Mass ratio] 4.2 {ratio} Normal [facility] Comment on above: Performed By: #### T SH, CMP, T7, LIPID ####[facility] [address] [address]Dr. John Bertrand HDL NORMAL > or = 60 mg/dl - LO W CARDIOVASCULAR RISK <40 mg/dl - HIGH CARDIOVASCULAR RISK Normal [facility] Comment on above: Performed By: #### T SH, CMP, T7, LIPID ####[facility] [address] [address]Dr. John Bertrand LDL CALC NORMAL SEE BELOW Normal The [facility] Comment on above: Result Comment: <100 mg/dl OPTIMAL 100 - 129 mg/dl NEAR OR ABOVE OPTIMAL 130 - 159 mg/dl BORDERLINE HIGH 160 - 189 mg/dl HIGH >190 mg/dl VERY HIGH Performed By: #### T SH, CMP, T7, LIPID ####[facility] [address] [address]Dr. John Bertrand Triglyceride [Mass/Vol] 68 mg/dL Normal <=150 [facility] Comment on above: Performed By: #### T SH, CMP, T7, LIPID ####[facility] [address] [address]Dr. John Bertrand VLDL CALC 13.6 mg/dL Normal [facility] Comment on above: Performed By: #### T SH, CMP, T7, LIPID ####[facility] [address] [address]Dr. John Bertrand PROF 14(COMP METB)on 023 Albumin [Mass/Vol] 3.8 g/dL Normal 3.4-5.0 [facility] Comment on above: Performed By: #### T SH, CMP, T7, LIPID ####[facility] [address] [address]Dr. John Bertrand Albumin/Globulin [Mass ratio] 1.1 {ratio} Normal [facility] Comment on above: Performed By: #### T SH, CMP, T7, LIPID ####[facility] [address] [address]Dr. John Bertrand ALP [Catalytic activity/Vol] 71 U/L Normal 46-116 [facility] Comment on above: Performed By: #### T SH, CMP, T7, LIPID ####[facility] [address] [address]Dr. John Bertrand ALT [Catalytic activity/Vol] 80 U/L Critically high 16-63 [facility] Comment on above: Performed By: #### T SH, CMP, T7, LIPID ####[facility] [address] [place], [place] [address]Dr. John Bertrand Anion gap [Moles/Vol] 11.2 mmol/L Normal [facility] Comment on above: Performed By: #### T SH, CMP, T7, LIPID ####[facility] [address] [place], [place] [address]Dr. Nataliebrenda Bertrand AST [Catalytic activity/Vol] 39 U/L Critically high 15-37 [facility] Comment on above: Performed By: #### T SH, CMP, T7, LIPID ####[facility] [address] [place], [place] [address]Dr. John Bertrand Bilirubin [Mass/Vol] 0.4 mg/dL Normal 0.2-1.0 [facility] Comment on above: Performed By: #### T SH, CMP, T7, LIPID ####[facility] [address] [place], [place] [address]Dr. John Bertrand Calcium [Mass/Vol] 9.2 mg/dL Normal 8.5-10.1 [facility] Comment on above: Performed By: #### T SH, CMP, T7, LIPID ####[facility] [address] [address]Dr. John Bertrand Chloride [Moles/Vol] 107 mmol/L Normal 98-107 [facility] Comment on above: Performed By: #### T SH, CMP, T7, LIPID ####[facility] [address] [address]Dr. John Bertrand CO2 [Moles/Vol] 26.8 mmol/L Normal 21.0-32.0 [facility] Comment on above: Performed By: #### T SH, CMP, T7, LIPID ####[facility] [address] [address]Dr. John Bertrand Creatinine [Mass/Vol] 1.21 mg/dL Normal 0.70-1.30 [facility] Comment on above: Performed By: #### T SH, CMP, T7, LIPID ####[facility] [address] [place], [place] [address]Dr. John Bertrand EGFR-AF MOZAMBICAN >60 Normal >=60 [facility] Comment on above: Performed By: #### T SH, CMP, T7, LIPID ####[facility] [address] [address]Dr. John Bertrand EGFR-NON AF MOZAMBICAN >60 Normal >=60 [facility] Comment on above: Performed By: #### T SH, CMP, T7, LIPID ####[facility] [address] [address]Dr. John Bertrand Globulin (S) [Mass/Vol] 3.5 g/dL Normal [facility] Comment on above: Performed By: #### T SH, CMP, T7, LIPID ####[facility] [address] [address]Dr. John Bertrand Glucose [Mass/Vol] 140 mg/dL Critically high 74-106 [facility] Comment on above: Performed By: #### T SH, CMP, T7, LIPID ####[facility] [address] [address]Dr. John Bertrand Potassium [Moles/Vol] 4.0 mmol/L Normal 3.5-5.1 [facility] Comment on above: Performed By: #### T SH, CMP, T7, LIPID ####[facility] [address] [address]Dr. John Bertrand Protein [Mass/Vol] 7.3 g/dL Normal 6.4-8.2 The [facility] Comment on above: Performed By: #### T SH, CMP, T7, LIPID ####[facility] [address] [address]Dr. John Bertrand Sodium [Moles/Vol] 141 mmol/L Normal 136-145 [facility] Comment on above: Performed By: #### T SH, CMP, T7, LIPID ####[facility] [address] [address]Dr. John Bertrand Urea nitrogen [Mass/Vol] 11.0 mg/dL Normal 7.0-18.0 [facility] Comment on above: Performed By: #### T SH, CMP, T7, LIPID ####[facility] [address] [address]Dr. John Bertrand Urea nitrogen/Creatinine [Mass ratio] 9.1 mg/mg Normal [facility] Comment on above: Performed By: #### T SH, CMP, T7, LIPID ####[facility] [address] [address]Dr. John Bertrand TSHon 01-14-2023 TSH 1.532 uIU/mL Normal 0.358-3.740 [facility] Comment on above: Performed By: #### T SH, CMP, T7, LIPID ####[facility] [address] [address]Dr. John Bertrand Physician Referralon 023 Physician Referral [phone] [id number] Normal [facility] CT ABD/PELV W CONon 12-17-[address] [...] by: GLORIA STRANGE Date: 2022-12-16 09:20 Normal [facility] ECHOCARDIO M/2D COMPLETEon 0 12-16-2022 ECHOCARDIO M/2D COMPLETE Patient: FLYNN ARNETT Exam Date: 12/16/2022 : 1965 Gender:M Ordering : DR LAUREN VELASQUEZ . Admission #: [id number] Family : Order #: [id number] CLICK HERE TO VIEW EXAM ECHOCARDIOGRAM REPORT [...] M.D. on 12/16/2022 at 12:11 Normal [facility] SARS-CoV-2 (COVID-19) RNA THALIA+probe Ql (Unsp spec) Not detected Normal NOT DETECTED [facility] Comment on above: Result Comment: This test is not yet approved or cleared by the [place] FDA. When there are no FDA-approved or cleared tests available, and other criteria are met, FDA can make tests available under an emergency access mechanism called an Emergency Use Authorization (EUA). The EUA for this test is supported by the [employer] of Health and Human Service's (HHS's) declaration [...] SARS-CoV-2. Performed By: #### C VDTBH #### [facility] [address] [place] [address] Dr. John Bertrand INFLUENZA A AND B AGon 03-06 [facility] SEE BELOW Normal [facility] Comment on above: Result Comment: Nega tive for Flu A protein angiten. Infection due to Flu A cannot be ruled out. Flu A angiten in the sample may be below the detection limit of the test. Performed By: #### I NFLUAB #### [facility] [address] [place] [address] Dr. John Bert[facility] Normal [facility] Comment on above: Result Comment: Nega tive for Flu B protein antigen. Infection due to Flu B cannot be ruled out. Flu B antigen in the sample may be below the detection limit of the test. Performed By: #### I NFLUAB #### [facility] [address] [place] [address] Dr. John Bertrand INFLUENZA A AG Negative Normal NEGATIVE SEE COMMENT [facility] Comment on above: Performed By: #### I NFLUAB #### [facility] [address] [place] [address] Dr. John Bertrand INFLUENZA B AG Negative Normal NEGATIVE SEE COMMENT [facility] Comment on above: Performed By: #### I NFLUAB #### [facility] [address] [place] [address] Dr. John Bertrand INTERNAL CONTROLS Within Normal Limits Normal Wi thin Normal Limits [facility] Comment on above: Performed By: #### I NFLUAB #### [facility] [address] [place] [address] Dr. John Bertrand SYMPTOMATIC COVID-19 ANTIGEN on 03-06-2022 EUA Statement SEE BELOW Normal [facility] Comment on above: Result Comment: This [...] sooner. Performed By: #### C VDAGS #### [facility] [address] [place] [address] Dr. John Bertrand SARS-CoV-2 (COVID-19) RNA THALIA+probe Ql (Unsp spec) Negative Normal NEGATIVE [facility] Comment on above: Performed By: #### C VDAGS #### [facility] [address] [address] [address] John Bertrand Vital Signs Date Time Vital Sign Value Performing Clinician Facility 05-10-2023 09:20-0400 Body height 175.26 cm Monica Jackson Other [employer] Other 05-10-2023 09:20-0400 Body mass index (BMI) [Ratio] 33.96 kg/m2 Monica Cardozamond Other [employer] Other 05-10-2023 09:20-0400 Body temperature 99 [degF] Monica Jackson Other [employer] Other 05-10-2023 09:20-0400 Body weight 104.33 kg Monica Jackson Other [employer] Other 05-10-2023 09:20-0400 Diastolic blood pressure 102 mm[Hg] Monica Cardozamond Other [employer] Other 05-10-2023 09:20-0400 Respiratory rate 18 /min Monica Jackson Other [employer] Other 05-10-2023 09:20-0400 SaO2% (BldA) [Mass fraction] 97 % Monica Jackson Other [employer] Other 05-10-2023 09:20-0400 Systolic blood pressure 141 mm[Hg] Monica Cardozamond Other [employer] Other 01-09-2023 15:29-0400 Blood Pressure Location [facility] 01-09-2023 15:29-0400 Diastolic blood pressure 98 mm[Hg] [facility] 01-09-2023 15:29-0400 Heart rate 80 /min [facility] 01-09-2023 15:29-0400 Respiratory rate 16 /min [facility] 01-09-2023 15:29-0400 Systolic blood pressure 146 mm[Hg] [facility] Encounters Encounter Date Encounter Type Care Provider Facility Start: 05-10-2025 End: 05-10-2025 ambulatory [facility] Start: 03-07-2025 End: 03-08-2025 ambulatory [facility] Start: 02-28-2025 ambulatory [facility] Start: 01-31-2025 End: 01-31-2025 ambulatory [facility] Start: 01-26-2025 ambulatory [facility] Start: 01-18-2025 Evaluation and manag ement of inpatient [facility] Start: 01-18-2025 Evaluation and manag ement of inpatient [facility] Start: 01-16-2025 Evaluation and manag ement of inpatient [facility] Start: 01-16-2025 End: 01-18-2025 Evaluation and management of inpatient [facility] Start: 12-06-2024 End: 12-06-2024 ambulatory [facility] Start: 10-27-2024 End: 10-27-2024 ambulatory [facility] Start: 05-10-2023 End: 05-10-2023 ambulatory Monica Jackson Other [employer] Other Start: 05-10-2023 Office outpatient ne w [address] [facility] [place] Start: 02-12-2023 Encounter for other preprocedural examination DR ADONIS WEBSTER [facility] Start: 02-12-2023 Encounter for preprocedural laboratory examination DR ADONIS WEBSTER [facility] Start: 02-06-2023 End: 02-07-[address] LAUREN VELASQUEZ . Facility: Start: 02-06-2023 End: 02-07-2023 Encounter for preprocedural laboratory examination DR ALUREN VELASQUEZ . Facility:[facility] Start: 01-20-2023 Encounter for genera l adult medical examination without abnormal findings DR LAUREN VELASQUEZ . [facility] Start: 01-14-2023 End: 01-15-[address] LAUREN VELASQUEZ . Facility: Start: 01-14-2023 End: 01-15-2023 Encounter for general adult medical examination without abnormal findings DR LAUREN VELASQUEZ . Facility: Start: 01-09-2023 End: 01-10-2023 ambulatory Colt STUART Facility:[facility] Start: 01-09-2023 End: 01-09-2023 Patient encounter procedure Colt STUART General Surgery [facility] Start: 12-16-2022 End: 12-17-[address] LAUREN VELASQUEZ . Facility: Start: 03-06-2022 End: 03-06-[address] LAUREN VELASQUEZ . Facility: Procedures Date Procedure Procedure Detail Performing Clinician Start: 01-14-2023 PSA screening MONICA SANTOS Comment on above: Performed By: #### [place] [facility] [place] [facility] [address] [place] [address] Dr. John Bertrand Open reduction of fracture with internal fixation Colt STUART Comment on above: right arm Immunizations Immunization Date Immunization Notes Care Provider Ashley horvath NEGATED: Highlighted row has not occurred!01-09-2023 influenza virus vaccine, unspecified formulation Colt STUART [facility] NEGATED: Highlighted row has not occurred!01-09-2023 SARS-CoV-2 mRNA (tozinameran 5y-11y) vaccine Colt STUART [facility] [place] Payers Date Payer Category Payer Unknown [id number] 1965 Unknown [id number] 2.16.8 [id number] 1965 Unknown [id number] 2.16.84 [id number] 1965 Unknown [id number] 2.16.84 [id number] 1965 Unknown [id number] 2.16.84 [id number] 1965 Unknown [id number] 2.16.84 [id number] 1965 Unknown [id number] 2.16.84 [id number] 1957 Self-pay [id number] 1957 Unknown [id number] 1957 Unknown [id number] Social History Date Type Detail Facility Start: 01-09-2023 Tobacco smoking status Never s moked tobacco (finding) [facility] Tobacco smoking status Never Gener al [facility] Sex Assigned At Male [facility] Functional Status Date Assessment Result Facility 01-09-2023 Functional Status N/A [facility] Clinical Notes 12-18-2022 to 03-07-2025 Note Date & Type Note Facility 03-07-2025 Note SD Electrophysiology Consult Note [facility] - [facility] Reason for visit: Device detected A-fib HPI: Flynn Arnett is a 59 y.o. year old with past medical history of HFpEF, hypertension, severe MR s/p mitral valve repair/annuloplasty with left atrial appendage clip, PFO closure hyperlipidemia AAA, DM 2 was transferred from [facility] to [facility] with underlying A-fib with RVR. He was placed on Cardizem which resulted in his heart rate dropping to 20 to 30 minutes and subsequent was transferred over to [facility] he underwent a cardiac cath which revealed [...] Year: No Utilities: Not At Risk (01/16/2025) [facility] Utilities Threatened with loss of utilities: No [...] daily as directed. 90 capsule 3 HYDROcodone-acetaminophen (Charlotte) 5-325 mg tablet Take 1 tablet by [...] Chest wall: Rate (more content not included)... [facility] 02-16-2025 Note Patient here for [facility] up ED visit last week. Still having [...] palpitations. He did not check his HR. [facility] 01-31-2025 Note [facility] Card[facility] Clinic Note Chief Complaint: Follow up HPI: Flynn Arnett is a 59 y.o. male Patient here for follow up [facility]. Underwent heart cath and PPM implant. Still [...] regurgitation s/p mitral valve repair Essential hypertension Emx-qlrfiad-zbsmlzeih type 2 diabetes mellitus Discharge Disposition Home [...] HYDROcodone-acetaminophen 5-325 mg tablet Commonly known as: Charlotte lisinopril 10 mg tablet Take 1 tablet (10 mg) by mouth in the morning. pantoprazole 40 mg EC tablet Commonly known as: ProtoNix simvastatin 20 mg tablet Commonly known as: Zocor Where to Get Your Medications These medications were sent to [facility] - [place], [place] - [address] [place] [address] [address] [facility] [place] [address], [facility] [address] apixaban 5 mg tablet Activity Normal activity as tolerated Diet Patient currently has no discharge diet orders Allergies Patient has no known allergies. Hospital Course Flynn Arnett is a 59 y.o. adult with a past medical history of heart failure with preserved ejection fraction, hypertension, mitral valve prolapse with regurgitation s/p mitral valve repair, hyperlipidemia, iwt-dqxtcrc-fajutbjhj type 2 diabetes, AAA who presents as a transfer from [facility]. Patient developed left lower chest pain yesterday, [...] had racing heartbeat. He went to the [facility] with these complaints, where reportedly his heart [...] to 30 bpm. He was transferred to [facility] for higher level of care. At [facility], his heart rate was at his baseline [...] working adequately. Du (more content not included)... [facility] 01-18-2025 Note DUAL CHAMBER PACEMAK ER IMPLANT [...] using modified seldinger technique using a 5 Romanian micro-puncture needle on two occasions and 0.35 [...] for the device above the muscle. 6 Romanian Safesheaths were placed over the wire. An active fixation Biotronik pacing lead was then delivered through the 6Fsheath tothe right ventricle. After confirmation of lead position on orthogonal views (SWANSON and BRUNEIAN) to confirm septal position, the screw was [...] lead position on orthogonal views (SWANSON and BRUNEIAN), the screw was activated. Good sensing parameters, [...] any concerns. Darryn Lundy MD Cardiac Electrophysiology [facility] 01-18-2025 Note ---- Attestation signed by Jonnathan [...] ???F) Temporal 74 20 98 % -- 01/17/251951 (!) 133/101 -- -- 64 -- -- -- 01/17/25 1938 128/76 -- -- 73 14 98 % -- 01/17/251841 -- -- -- -- -- 97 % [...] 80 QT Interval 330 QTC CALCULATION(BAZETT) 481 R-[place] 62 T Wave [place] 87 Impression Atrial fibrillation with rapid ventricular [...] Bubble Study Result Date: 01/16/2025 1 1 [facility] Heart Station [address] [address] [phone] (fax) Echocardiogram-[facility] Name: FLYNN ARNETT Study Date: 01/16/2025 02:51 PM B/P: 117 mmHg/76 mmHg HR: 54 bpm Date of : 1965 Location: [facility] Height: 69 in. Age: 59 year(s) Patient [...] RVSP 33 mmHg (more content not included)... [facility] 01-18-2025 Note ---- Attestation signed by Champ Caceres MD at 01/18/2025 10:14 AM The patient was evaluated with the resident/fellow Flynn Arnett is a 59 y.o. adult with a past medical history of heart failure with preserved ejection fraction, hypertension, mitral valve prolapse with regurgitation s/p mitral valve repair, hyperlipidemia, lqh-tljzghi-wjckgvcpr type 2 diabetes, AAA who presents as a transfer from [facility] for chest pain Critical Care services were [...] [facility] 59 [facility] 1965 [id number] Date of Admission - 01/16/2025 2:24 PM HPI/Hospital Course Subjective Flynn Arnett is a 59 y.o. adult with a past medical history of heart failure with preserved ejection fraction, hypertension, mitral valve prolapse with regurgitation s/p mitral valve repair, hyperlipidemia, ftg-jpflrvu-hhcaknfyj type 2 diabetes, AAA who presents as a transfer from [facility]. Patient developed left lower chest pain yesterday, [...] had racing heartbeat. He went to the [facility] with these complaints, where reportedly his heart [...] to 30 bpm. He was transferred to [facility] for higher level of care. At [facility], his heart rate was at his baseline [...] - 100 mm (more content not included)... [facility] 01-17-2025 Note Patient: Flynn kim Procedure Information Date/Time: 01/17/25 1700 Procedure: Implant PPM Location: [facility] LEAD MEDICAL TECHNOLOGIST 1 / [facility] (Cath) Providers: Darryn Lundy MD Clinical information reviewed: Allergies Meds Physical Exam Airway Mallampati: II TM distance: >3 FB Neck ROM: full Cardiovascular Dental Pulmonary Abdominal Anesthesia Plan ASA 3 CSE Anesthetic plan and risks discussed with patient. Use of blood products discussed with patient who. Additional Equipment Requests [facility] 01-17-2025 Note ---- Attestation signed by Jonnathan [...] Value Ventricular Rate 49 Atrial Rate 49 [place] Interval 196 QRS DURATION 82 QT Interval 474 QTC CALCULATION(BAZETT) 428 P [place] -18 R-[place] 51 T Wave [place] 69 Impression Sinus bradycardia Nonspecific ST and T wave abnormality Abnormal ECG When compared with ECG of 16-JAN-2025 14:49, Premature atrial complexes are no longer Present No results found for: CKTOTAL , CKMB , CKMBINDEX , TROPONINI Limited Echo (TTE) w/wo Limited Doppler, Color Flow, Imaging Agent, Strain, 3D, Bubble Study Result Date: 01/16/2025 1 1 [facility] Heart Station [address] [place] [address] [phone] (fax) Echocardiogram-[facility] Name: FLYNN ARNETT Study Date: 01/16/2025 02:51 PM B/P: 117 mmHg/76 mmHg HR: 54 bpm Date of : 1965 Location: [facility] Height: 69 in. Age: 59 year(s) Patient [...] left ventricular sy (more content not included)... [facility] 01-17-2025 Note Patient: Flynn kim Procedure Information Date/Time: 01/17/251844 Procedure: Coronary angiography Location: [facility] LEAD MEDICAL TECHNOLOGIST 3 / [facility] (Cath) Providers: Reddy Henry MD [...] consented to blood products. Additional Equipment Requests [facility] 01-17-2025 Note ---- Attestation signed by Champ Caceres MD at 01/18/2025 10:12 AM The patient was evaluated with the resident/fellow Flynn Benjamín David is a 59 y.o. adult with a past medical history of heart failure with preserved ejection fraction, hypertension, mitral valve prolapse with regurgitation s/p mitral valve repair, hyperlipidemia, gzl-rteqort-lkyjtejkw type 2 diabetes, AAA who presents as a transfer from [facility] for chest pain Critical Care services were [...] Arnett Age - 59 [facility]. - 1965 [id number] Date of Admission - 01/16/2025 2:24 PM HPI/Hospital Course Subjective Flynn Arnett is a 59 y.o. adult with a past medical history of heart failure with preserved ejection fraction, hypertension, mitral valve prolapse with regurgitation s/p mitral valve repair, hyperlipidemia, emh-vpaqocl-xujrupvxd type 2 diabetes, AAA who presents as a transfer from [facility]. Patient developed left lower chest pain yesterday, [...] had racing heartbeat. He went to the [facility] with these complaints, where reportedly his heart [...] to 30 bpm. He was transferred to [facility] for higher level of care. At [facility], his heart rate was at his baseline [...] is 101 kg (221 lb 9 oz). [facility]'s temporal temperature is 36.9 ???C (98.5 [...] 61 (L) 83 (more content not included)... [facility] 01-16-2025 Note Given chest pain and shortness of breath with modest activity, especially with new bradycardia, plan coronary angiography tomorrow to exclude significant CAD that could explain symptoms and bradycardia. [facility] 01-16-2025 Note Tentatively plan nimesh l chamber pacemaker implant tomorrow for symptomatic bradycardia. [facility] 12-06-2024 Note UTP DESHAUN CARDIOL OGY PROGRESS NOTE Patient here for [...] Reported on 06/30/2023) 120 capsule 0 HYDROcodone-acetaminophen (Charlotte) 5-325 mg tablet Take 1 tablet by [...] Mucous membranes are (more content not included)... [facility] 10-27-2024 Note LENNIE MEADE CARDIOL LEILANI PROGRESS NOTE Patient here for [...] regurgitation. He was switched from [employer] to [email or web address] due to cost. Had echo last month, [...] takes less th (more content not included)... [facility] 05-10-2023 Evaluation note Encounter Date Diagnosis Assessment [...] tomorrow. You may also follow-up with an search strategist if no improvement. Go to the ER for worsening symptoms or concerns May, Left ear impacted cerumen (ICD-10 - H61.22) Cerumen impaction home care material was printed May, Right ear impacted cerumen (ICD-10 - H61.21) [employer] Other 04-07-2023 NoteChief Complaint consultation for umbilical hernia [facility] Staff 57 year old male presents on [...] Follow-up With When Contact Information NARCISO PEPE, Colt Dudley, BETI Only if needed [address] [place] [address]- Additional Instructions: Problem List/Past Medical [...] Tobacco - Denies T (more content not included)...[facility] Comment on above:Result Comment: Electronically Signed By: Colt STUART MD\.br\Date and Time Signed: 01/09/23 15:56 [id number] Hospital Discharge instructions Follow Up Care 12/18/2022 13:20:00 With:Colt STUART MD, SUR Address: [address] [place] [id number]- When: only if needed [facility] Evaluation + Plan note No data available for this section [facility] [place] History general Narrative - Reported* Type Description Date Medical History GERD Medical History HYPERLIPIDEMIA Hospitalization History KNEE CELLULITIS [employer] Other Progress note No data available for this section General [facility] [place] Summary Purpose Family History No Family History Records FoundNo Family History Records FoundNo Family History Records Found Advance Directives No Advanced Directives Records FoundNo Advanced Directives Records FoundNo Advanced Directives Records Found Additional Source Comments Patient Care team informatio n (unrecognized section and content) Personnel Name: Lauren Velasquez MD Address: Address: [address] [place] [address]- (unrecognized sect ion and content) No Status Records FoundNo Status Records FoundNo Status Records Found INFORMATION SOURCE (unrecogn ized section and content) DATE CREATED AUTHOR 01/11/2023 [facility] DATE CREATED AUTHOR AUTHOR'S ORGANIZ ATION 02/13/2023 [facility] DATE CREATED AUTHOR AUTHOR'S ORGANIZ ATION 05/12/2025 [facility] REASON FOR VISIT (unrecogniz ed section [...] BE BASED ON THE PRIMARY CLINICAL RECORDS. [employer] provides no warranty or guarantee of the accuracy or completeness of information in this document.
== END 2025-05-23 07:09 | disposition home or self-care (01) ==
LOC: CARD 07:08
PROVIDERS: PCP Family Medicine; Visit Provider Internal Medicine Interventional Cardiology
DX: I34.0 Nonrheumatic mitral (valve) insufficiency (principal)
CPT/HCPCS: 93306

== ENCOUNTER 2025-07-19 07:58 | Outpatient (OUT) | payer BC, SELFPAY ==
--- OUTSIDE RECORDS SUMMARY | 2025-07-11 09:00 | XMS_ITS | Encounter Summary ---
Author Organization [facility] Address [address] [place] [address] Care Team Providers Care Senior Ssis Developer Name Role Phone Giovanni Velasquez MD Primary Care Provider [phone] Akiko Fernandez MD Unavailable [phone] Reason for Referral * (Routine) - Canceled Specialty Diagnoses / Procedures Referred By Contac t Referred To Contact Diagnoses PAF (paroxysmal atrial fibrillation) (CMS/HCC) Procedures ECG 12 lead unit performed Darryn Lundy MD [address] [place] [address] Phone: tel: fax: Referral ID Status Reason Start Date Expiration Date V isits Requested Visits Authorized [id number] Canceled 07/11/2025 07/11/2026 1 1 Encounter Details Date Type Department Care Team (Late st Contact Info) Description 07/11/2025 9:00 AM EDT Office Visit [facility] Heart at [facility] [address] [place] [address] Darryn Lundy MD [address] [place] [address] PAF (paroxysmal atrial fibrillation) (CMS/HCC) (Primary Dx) Social History Tobacco Use Types Packs/Day Years Used Date Smoking Tobacco: Never Smokeless Tobacco: Never Alcohol Use Standard Drinks/Week Comments Not Currently 0 (1 standard drink = 0.6 oz pur e alcohol) [facility] Utilities Answer Date Recorded In the past 12 months has th e electric, gas, oil, or water company threatened to shut off services in your home? No 01/16/2025 Humiliation, Afraid, Rape, and Kick questionnair e Answer Date Recorded Within the last year, have y ou been afraid of your partner or ex-partner? No 01/16/2025 Emotionally Abused Not on file 01/16/2025 Physically Abused Not on file 01/16/2025 Sexually Abused Not on file 01/16/2025 Overall Financial Resource Strain (CARDIA) Answe r Date Recorded How hard is it for you to pa y for the very basics like food, housing, medical care, and heating? Not hard at all 01/16/2025 PHQ-2 Answer Date Recorded Patient Health Questionnaire-2 Score 0 06/18/2023 Transportation Answer Date Recorded In the past 12 months, has l ack of transportation kept you from medical appointments or from getting medications? No 01/16/2025 Lack of Transportation (Non-Medical) Not on file 01/16/2025 Housing Stability Vital Sign Answer Chucky e Recorded In the last 12 months, was t here a time when you were not able to pay the mortgage or rent on time? No 01/16/2025 Number of Times Moved in the Last Year Not on fi le 01/16/2025 At any time in the past 12 m [facility], were you homeless or living in a snf (including now)? No 01/16/2025 Hunger Vital Sign Answer Date Recorded Within the past 12 months, y ou worried that your food would run out before you got the money to buy more. Never true 01/17/20 25 Ran Out of Food in the Last Year Not on file 01/16/2025 Sex and Gender Information Value Date Recorded Sex Assigned at Male 01/18/2025 8:54 AM EDT Legal Sex Male 11:52 AM EDT Gender Identity Male 01/18/2025 8:54 AM EDT Sexual Orientation Heterosexual or Straight 05/05 10:26 AM EDT documented as of this encounter Last Filed Vital Signs Vital Sign Reading Time Taken Comments Blood Pressure 127/89 07/11/2025 9:08 AM EDT Pulse 68 07/11/2025 9:08 AM EDT Temperature - - Respiratory Rate - - Oxygen Saturation 99% 07/11/2025 9:08 AM EDT Inhaled Oxygen Concentration - - Weight 102 kg (225 lb) 07/11/2025 9:08 AM EDT Height 175.3 cm (5' 9 ) 07/11/2025 9:08 AM EDT Body Mass Index 33.23 07/11/2025 9:08 AM EDT documented in this encounter Functional Status * BP Answer Date of Assessment Author 127/89 07/11/2025 9:08 AM EDT Samia Sheldon MA * Pulse Answer Date of Assessment Author 68 07/11/2025 9:08 AM EDT Samia Sheldon MA * Patient Position Answer Date of Assessment Author Sitting 07/11/2025 9:08 AM EDT Samia Sheldon MA * Are you deaf or do you have serious difficulty hearing? Answer Date of Assessment Author No 01/18/2025 1:33 PM EDT Lauren Salcedo RN * Are you blind or do you have serious difficulty seeing, even when wearing glasses? Answer Date of Assessment Author No 01/18/2025 1:33 PM EDT Lauren Salcedo RN * Do you have serious difficulty walking or climbing stairs? Answer Date of Assessment Author No 01/18/2025 1:33 PM EDT Lauren Salcedo RN * Do you have serious difficulty dressing or bathing? Answer Date of Assessment Author No 01/18/2025 1:33 PM EDT Lauren Salcedo, JOE * Because of a physical, mental, or emotional condition, do you have serious difficulty doing errandsalone such as visiting the doctor? Answer Date of Assessment Author No 01/18/2025 1:33 PM EDT Lauren Salcedo RN * BP Answer Date of Assessment Author 127/89 07/11/2025 9:08 AM EDT Samia Sheldon MA * Pulse Answer Date of Assessment Author 68 07/11/2025 9:08 AM EDT Samia Sheldon MA * SpO2 Answer Date of Assessment Author 99 07/11/2025 9:08 AM EDT Samia Sheldon MA * BP Location Answer Date of Assessment Author Left arm 07/11/2025 9:08 AM EDT Samia Sheldon MA * Patient Position Answer Date of Assessment Author Sitting 07/11/2025 9:08 AM EDT Samia Sheldon MA documented as of this encounter Mental Status * Because of a physical, mental, or emotional condition, do you have serious difficulty concentrating, remembering, or making decisions? (5 years old or older) Answer Entry Date Author No 01/18/2025 1:33 PM EDT Lauren Salcedo RN documented in this encounter Progress Notes * Darryn Lundy MD - 07/11/2025 9:00 AM EDT Images from the original note were not included. [place] [facility] Consult Note [place] [facility] - [facility] Reason for visit: Device detected A-fib 07/11/2025 Patient is here today for a follow up appointment S/P A-fib ablation. Patient state he does feel great. Patient complains of fatigue, chest pain, shoulder pain, pressure, stabbing, sharp, with and without activity, which radiates to left elbow, with some nausea, Patient states this has been on going since before his ablation. Shaky hands, Palpitations/racing heart, lightheaded/dizziness. Patient is wondering if his pacemaker is set to low. EKG 07/11/2025 atrial paced rhythm. Review of Systems Constitutional: Positive for malaise/fatigue. Cardiovascular: Positive for chest pain, irregular heartbeat and palpitations. Gastrointestinal: Positive for nausea. Neurological: Positive for dizziness and light-headedness. HPI: Rodriguez Hernandez is a 59 y.o. year old with past medical history of HFpEF, hypertension, severe MR s/p mitral valve repair/annuloplasty with left atrial appendage clip, PFO closure hyperlipidemia AAA, DM 2 was [facility] with underlying A-fib with RVR. He was placed on Cardizem which resulted in his heart rate dropping to 20 to 30 minutes and subsequent was transferred over to [facility] he underwent a cardiac cath which revealed normal coronaries. Given the persistence of bradycardia he was subsequently given a dual-chamber pacemaker by dc. Biotronik dual-chamber pacemaker was placed on 01/17/2025 and he was subsequently discharged. Device check that was subsequently performed reveals that he has got 8 percent A-fib burden with 80% RA pacing and 1% RV pacing. PMH: Past Medical History: Diagnosis Date Afib ([facility]) Aneurysm Angina pectoris, unstable ([facility]) BMI 36.0-36.9,adult Bradycardia Diabetes mellitus ([facility]) GERD (gastroesophageal reflux disease) Hyperlipidemia Hypertension Mitral valve prolapse 04/2023 NONRHEUMATIC Murmur Pacemaker Restless leg syndrome Sick sinus syndrome ([facility]) PSH: Past Surgical History: Procedure Laterality Date ABLATION OF DYSRHYTHMIC FOCUS CARDIAC CATHETERIZATION Bilateral 04/2023 MITRAL VALVE REPAIR PATENT FORAMEN OVALE CLOSURE SH: Social Drivers of Health Tobacco Use: Low Risk (07/11/2025) Patient History Smoking Tobacco Use: Never Smokeless [...] Year: No Utilities: Not At Risk (01/16/2025) [facility] Utilities Threatened with loss of utilities: No Health Literacy: Not on file Allergies: No Known Allergies Weight: 102kg Visit Vitals BP 127/89 (BP Location: Left arm, Patient Position: Sitting) Pulse 68 Ht 1.753 m (5' 9 ) Wt 102 kg (225 lb) SpO2 99% BMI 33.23 kg/m?? Smoking Status Never BSA 2.23 m?? Meds: Current Outpatient Medications on File Prior to Visit Medication Sig Dispense Refill amiodarone (Pacerone) 200 mg tablet Take 1 tablet (200 mg) by mouth in the morning. 90 tablet 3 apixaban (Eliquis) 5 mg tablet Take 1 tablet (5 mg) by mouth two times daily. 180 tablet 3 aspirin 81 mg EC tablet Take 81 mg by mouth in the morning. dilTIAZem CD (Cardizem CD) 120 mg 24 hr capsule Take 1 capsule (120 mg) by mouth once daily as directed. 90 capsule 3 ezetimibe (Zetia) 10 mg tablet Take 1 tablet (10 mg) by mouth in the morning. 30 tablet 0 HYDROcodone-acetaminophen ([place]) 5-325 mg tablet Take 1 tablet by [...] Take 20 mg by mouth at bedtime. carvedilol (Coreg) 3.125 mg tablet Take 1 tablet (3.125 mg) by mouth with breakfast and with evening meal. (Patient not taking: Reported on 07/11/2025) 180 tablet 3 dapagliflozin propanediol (Farxiga) 10 mg Take 1 tablet (10 mg) by mouth in the morning. (Patient not taking: Reported on 07/11/2025) 90 tablet 3 furosemide (Lasix) 20 mg tablet Take 1/2 tablet daily (Patient not taking: Reported on 07/11/2025) 90 tablet 3 No current facility-administered medications on file prior to visit. Physical Exam: Constitutional General Appearance: well-nourished, well-developed, appears stated age Level of Distress: comfortable Eyes DRU Neck Neck: supple, trachea midline Carotid Arteries: bilateral normal upstroke, no bruits Jugular Veins: normal jugular venous pressure Thyroid: not enlarged Lungs Respiratory Effort: unlabored Chest Exam: normal curvature, no thoracic deformity Auscultation: clear, no wheezing, no rales, no rhonchi Cardiovascular Chest wall: Rate And Rhythm: regular Heart Sounds: normal S1, normal s2, no gallop Systolic Murmur: not heard Diastolic Murmur: not heard Extremities: no cyanosis, no edema, no peripheral signs of emboli Peripheral Pulses Radial Pulse: normal Abdomen Inspection and Palpation: soft, non distended, no bruit, non tender Neurologic Gait: normal gait Labs: @LABRESULTS@ Lab Results Component Value Date HDL 32 01/16/2025 HDL 26 05/28/2023 LDL CALC 116 01/16/2025 LDL CALC 59 05/28/2023 TRIGLYCERIDES 103 01/16/2025 TRIGLYCERIDES 128 05/28/2023 TSH 1.64 01/16/2025 EKG: Encounter Date: 05/31/25 ECG 12 lead Result Value Ventricular Rate 72 Atrial Rate 72 MN Interval 274 QRS DURATION 158 QT Interval 460 QTC CALCULATION(BAZETT) 503 P Troy -89 R-Troy -14 T Wave Troy 99 Impression AV dual-paced rhythm with prolonged AV conduction Abnormal ECG When compared with ECG of 31-MAY-2025 11:05, Electronic ventricular pacemaker has replaced Electronic atrial pacemaker Confirmed by Stephani MCRAE, CHELSEA Ramirez ([id number]) on 05/31/2025 6:11:54 PM Echo: 01/16/25 Stress test: 01/17/25 Coronary Angiogram: Left main: normal LAD: normal LCX: very large and dominant left circumflex. The left circumflex is angiographically normal RCA: small, non-dominant RCA which is angiographically normal. 05/31/23 Hemodynamic Data: RA: 15 mmHg RV: 44/16 mmHg PA: 45/19 (mean 29) mmHg PCWP: mean 27 mmHg Lillian CO: 4.9 L/min Lillian CI: 2.2 L/min/m2 O2 Sat: PA sat: 49% AO sat: 92% EP study 05/31/2025 LA baseline (mmHg) 15/2 HR 60bpm LA 600ms pacing (mmHg) 20/14 LA 400ms pacing (mmHg) NA AHms 126 HVms 83 VERPms 600/300, VA condunction - AV Wenkebach ms 570ms AH jump ms NA AVNERP ms 600 AERP ms 600/350 POST PROCEDURE DIAGNOSIS 1. Paroxysmal atrial fibrillation s/p PVI (WACA) with PFA. 2. CTI flutter s/p ablation with bidirectional block. 3. Atypical RA flutter (incisional flutter) s/p linear ablation from SVC to IVC on the right lateral aspect. 4. EP study revealing no retrograde accessory pathway. 5. Normal LA voltage 6. Mildly elevated LA pressures with tachycardia suggestive of HFpEF. Assessment and Plan: - Atrial fibrillation s/p PVI plus CTI: Patient is maintaining sinus rhythm. Will stop amiodarone and review after 6 months to decide whether we should continue DOAC as his CHADS2 score is only 1 andconsidered to if he is a prediabetic. - Atypical right atrial flutter (incisional flutter) s/p linear ablation from SVC to IVC on the right lateral aspect - severe MR s/p mitral valve repair/annuloplasty with left atrial appendage clip, -PFO closure - hyperlipidemia - AAA - DM 2: Patient states that he is prediabetic but he is on Farxiga. I have advised him to trial GLP-1 receptor agonist which can help with weight loss Darryn Lundy MD Cardiac Electrophysiology [facility] documented in this encounter Plan of Treatment Upcoming Encounters Date Type Department Care Team (Late st Contact Info) Description 08/08/2025 11:00 AM EST Ancillary Procedure [facility] Heart [place] [address] [place] [address] documented as of this encounter Procedures Procedure Name Priority Date/Time Associated Diagnosis Comments ECG 12 LEAD UNIT PERFORMED Routine 07/11/2025 9:05 AM EDT PAF (paroxysmal atrial fibrillation) (CMS/HCC) documented in this encounter Results * ECG 12 lead unit performed (07/11/2025 9:05 AM EDT) Darryn Lundy MD ECG ORDERABLES Final Result documented in this encounter Visit Diagnoses Diagnosis PAF (paroxysmal atrial fibrillation) (CMS/HCC)- Primary Atrial fibrillation documented in this encounter Care Teams Senior Ssis Developer Relationship Specialty Start Date End Date Giovanni Velasquez MD [address] [facility] [address] [address] PCP - General 01/14/23 Akiko Fernandez MD [address] [facility] [address] [place] [address] Industrial Illuminating Engineer 05/25/23 documented as of this encounter
--- OUTSIDE RECORDS SUMMARY | 2025-07-19 08:04 | XMS_ITS | Clinical Summary ---
Author Organization [facility] Address [facility] [address] Care Team Providers Care Senior [employer] Net Developer Name Role Phone Giovanni Velasquez MD Primary Care Provider [phone] Allergies No known active allergies Medications diclofenac (Voltaren) 75 MG EC tablet Take 75 mg by mouth in the morning and 75 mg before bedtime. 01/08/2023 Active ezetimibe (Zetia) 10 MG tablet Take 10 mg by mouth in the morning. 01/07/2023 Active HYDROcodone-ashley taminophen ([place]) 5-325 MG tablet Take 1 tablet by mouth every 4 (four) hours if needed. 12/12/2022 Active pantoprazole (ProtoNix) 40 MG EC tablet Take 40 mg by mouth in the morning. Take before meals. 01/08/2023 Active simvastatin (Zocor) 20 MG tablet Take 20 mg by mouth in the morning. 01/08/2023 Active Active Problems Problem Noted Date Diagnosed Date Chronic reactive otitis externa of left ear 05/06 Hypertension 05/22/2023 Hyperlipidemia 05/22/2023 Cardiomegaly 05/22/2023 Nonrheumatic mitral (valve) insufficiency 2022 Overview (05/22/2023): With prolapse Infective otitis externa 05/22/2023 Diabetes 01/14/2023 Restless leg syndrome 01/14/2023 Family History Medical History Relation Name Comments No Known Problems Father Lung cancer Mother Hypertension Other Relation Name Status Comments Father Alive Mother Alive Other Social History Tobacco Use Types Packs/Day Years Used Date Smoking Tobacco: Never Smokeless Tobacco: Never Tobacco Cessation:Counseling Given: Not Answered Alcohol Use Standard Drinks/Week Comments Yes 2 (1 standard drink = 0.6 oz pur e alcohol) Sex and Gender Information Value Date Recorded Sex Assigned at Not on file Legal Sex Male 6:53 PM EDT Gender Identity Not on file Sexual Orientation Not on file Last Filed Vital Signs Vital Sign Reading Time Taken Comments Blood Pressure 155/97 05/25/2023 8:15 AM EDT Pulse - - Temperature - - Respiratory Rate - - Oxygen Saturation - - Inhaled Oxygen Concentration - - Weight 106 kg (234 lb) 05/25/2023 8:15 AM EDT Height 175.3 cm (5' 9 ) 05/25/2023 8:15 AM EDT Body Mass Index 34.56 05/25/2023 8:15 AM EDT Plan of Treatment Not on file Insurance [employer] Care Teams Senior Microsoft Net Developer Relationship Specialty Start Date End Date Giovanni Velasquez MD PCP - General Family Medicine 05/22/23
--- OUTSIDE RECORDS SUMMARY | 2025-07-19 08:04 | XMS_ITS | Clinical Summary ---
Author Organization [facility] Address [address] [place] [address] Care Team Providers Care Global Regulatory Affairs Manager Name Role Phone Giovanni Velasquez MD Primary Care Provider [phone] Akiko Fernandez MD Unavailable [phone] Allergies No known active allergies Medications pantoprazole (ProtoNix) 40 mg EC tablet Take 40 mg by mouth before breakfast. 3 Active ezetimibe (Zetia) 10 mg tabletIndications :Mitral valve regurgitation congenital Take 1 tablet (10 mg) by mouth in the morning. 30 tablet 3 Active simvastatin (Zocor) 20 mg tablet Take 20 mg by mouth at bedtime. 3 Active aspirin 81 mg EC tablet Take 81 mg by mouth in the morning. Active HYDROcodone-aceta minophen ([place]) 5-325 mg tablet Take 1 tablet by mouth every 4 (four) hours if needed. 5 Active dapagliflozin propanediol (Farxiga) 10 mgIndications:Chr onic heart failure with preserved ejection fraction (CMS/HCC) Take 1 tablet (10 mg) by mouth in the morning. 90 tablet 3 5 026 Active Additional Information Patient not taking.Reported on 07/11/2025 carvedilol (Coreg) 3.125 mg tabletIndications :Essential hypertension Take 1 tablet (3.125 mg) by mouth with breakfast and with evening meal. 180 tablet 3 5 026 Active Additional Information Patient not taking.Reported on 07/11/2025 lisinopril 10 mg tabletIndications :Essential hypertension Take 1 tablet (10 mg) by mouth in the morning. 90 tablet 3 5 026 Active furosemide (Lasix) 20 mg tabletIndications :Essential hypertension Take 1/2 tablet daily 90 tablet 3 5 Active Additional Information Patient not taking.Reported on 07/11/2025 dilTIAZem CD (Cardizem CD) 120 mg 24 hr capsuleIndication s:Paroxysmal atrial fibrillation (CMS/HCC) Take 1 capsule (120 mg) by mouth once daily as directed. 90 capsule 3 5 026 Active metoprolol succinate XL (Toprol-XL) 25 mg 24 hr tabletIndications :Paroxysmal atrial fibrillation (CMS/HCC) Take 1 tablet (25 mg) by mouth in the morning. STOP CARVEDILOL 90 tablet 3 5 026 Active amiodarone (Pacerone) 200 mg tabletIndications :Paroxysmal atrial fibrillation (CMS/HCC) Take 1 tablet (200 mg) by mouth in the morning. 90 tablet 3 5 026 Active apixaban (Eliquis) 5 mg tabletIndications :Paroxysmal atrial fibrillation (CMS/HCC) Take 1 tablet (5 mg) by mouth two times daily. 180 tablet 3 5 Active Active Problems Problem Noted Date Diagnosed Date Acute non-ST segment elevation myocardial infarc tion 07/11/2025 Arthritis of right knee 07/11/2025 Cardiac pacemaker in situ 07/11/2025 Chest pain 07/11/2025 Dilatation of aorta 07/11/2025 Dyspnea 07/11/2025 PAF (paroxysmal atrial fibrillation) 03/07/2025 Bradycardia 01/16/2025 Assessment & Plan (01/16/2025 8:14 PM EDT): Tentatively plan dual chamber pacemaker implant tomorrow for symptomatic bradycardia. Angina pectoris, unstable 01/16/2025 Assessment & Plan (01/16/2025 8:14 PM EDT): Given chest pain and shortness of breath with modest activity, especially with new bradycardia, plan coronary angiography tomorrow to exclude significant CAD that could explain symptoms and bradycardia. Sick sinus syndrome 01/16/2025 Aneurysm of aortic root 10/30/2023 Assessment & Plan (04/15/2024 3:44 PM EDT): Aortic dilitation remains stable Will repeat Echocardiogram in 1 year D/w pt importance of statin and HTN management and he voiced understanding Cardiorenal syndrome 06/01/2023 Chronic heart failure with preserved ejection fr action 06/01/2023 Assessment & Plan (04/15/2024 3:41 PM EDT): NYHC I currently euvolemic without exacerbation HE has stopped jardiance and lasix r/t lightheadedness/dizzyness and symptoms have resolved. He has lost weight since his last visit and overall doing well. Monitor daily weights, I&O, fluid restriction 1.5-2L/day, renal function and electrolytes- Hyponatremia 05/31/2023 Pulmonary congestion 05/31/2023 Atelectasis 05/29/2023 Acute blood loss as cause of postoperative anemi a 05/29/2023 Acute respiratory insufficiency, postoperative 0 05/28/2023 Primary hypertension 05/28/2023 Assessment & Plan (04/15/2024 3:43 PM EDT): Hypertension is currently controlled- he has stopped taking coreg, lasix and jardiance- He does monitor b/p at home and typically b/p remains < 130/80 Mitral valve regurgitation congenital 05/27/2023 Assessment & Plan (04/15/2024 3:42 PM EDT): stable Chronic reactive otitis externa of left ear 05/0606/30/2023 Cardiomegaly 05/22/2023 06/30/2023 Infective otitis externa 05/22/2023 023 Mitral valve disease 04/30/2023 Assessment & Plan (04/15/2024 3:42 PM EDT): S/P MV repair- ring Ring with normal doppler flows on TTE No concerning symptoms currently Diabetes 01/14/2023 GERD (gastroesophageal reflux disease) Hyperlipidemia 01/14/2023 Murmur 01/14/2023 BMI 36.0-36.9,adult 01/14/2023 Obesity 01/14/2023 Prediabetes 01/14/2023 Restless leg syndrome 01/14/2023 Umbilical hernia, incarcerated 01/14/2023 Mitral valve prolapse 01/14/2023 Overview (01/14/2023): Added automatically from request for surgery [id number] Resolved Problems Problem Noted Date Diagnosed Date Resolved Date NYHA class 2 congestive hear t failure with preserved left ventricular function 06/04/202304/04 Encounters Date Type Department Care Team Description 07/11/2025 9:00 AM EDT Office Visit [facility] [address] [place] [address] Darryn Lundy MD PAF (paroxysmal atrial fibrillation) (CMS/HCC) (Primary Dx) 06/19/2025 Refill [facility] [address] [place] [address] Giovana Branch MA Paroxysmal atrial fibrillation (CMS/HCC) 06/19/2025 Refill [facility] [address] [facility] [place] [address] Pooja Carrasco MA Paroxysmal atrial fibrillation (CMS/HCC) 06/13/2025 Telephone [facility] [address] [place] [address] Harper Marie RN BP and HR results 06/09/2025 Telephone [facility] [place] [facility] [address] [place] [address] Harper Marie RN week f/u post ablation 05/31/2025 12:42 PM EDT Anesthesia Event [facility] [address] [place] [address] Curt Azul MD Stimes, Nicholas, MD 05/31/2025 11:30 AM EDT - 05/31/2025 2:30 PM EDT Surgery [facility] [address] [place] [address] Darryn Lundy MD Ablation a-fib w/ pvi [[id number] (CPT )] 05/31/2025 10:19 AM EDT - 05/31/2025 7:07 PM EDT Hospital Encounter [facility] [address] [place] [address] Darryn Lundy MD Paroxysmal A-fib (CMS/HCC); PAF (paroxysmal atrial fibrillation) (CMS/HCC) Discharge Disposition: Home or Self Care (01) 05/31/2025 Travel 05/23/2025 Telephone [facility] [address] [place] [address] Pooja Carrasco MA 05/23/2025 Orders Only [facility] [address] [place] [address] Marisa Christianson MD 05/20/2025 Refill [facility] [address] [facility] [place] [address] Darryn Lundy MD Paroxysmal atrial fibrillation ([facility]/HCC) 05/19/2025 11:40 AM EDT Ancillary Procedure [facility] [address] [address] [facility] [place] [address] Adjustment and management of cardiac pacemaker 05/19/2025 Orders Only [facility] [address] [facility] [place] [address] Darryn Lundy MD 05/19/2025 Travel 05/10/2025 8:30 AM EDT Anesthesia Event [facility] [address] [place] [address] Adrienne Bruno MD 05/10/2025 6:57 AM EDT - 05/10/2025 7:39 AM EDT Hospital Encounter [facility] [address] [place] [address] Darryn Lundy MD PAF (paroxysmal atrial fibrillation) (CMS/HCC) Discharge Disposition: Home or Self Care (01) 05/10/2025 Travel 05/08/2025 Travel 05/04/2025 Refill [facility] [address] [facility] [place] [address] Pooja Carrasco MA Paroxysmal atrial fibrillation (CMS/HCC) 05/02/2025 Telephone [facility] [address] [facility] [place] [address] Giovana Branch MA 04/26/2025 Telephone [facility] [address] [facility] [place] [address] Giovana Branch MA 04/26/2025 Orders Only [facility] [address] [facility] [place] [address] Giovana Branch MA Paroxysmal atrial fibrillation (CMS/HCC) (Primary Dx) from Last 3 Months Family History Medical History Relation Name Comments No Known Problems Father No Known Problems Mother Relation Name Status Comments Father Alive Mother Social History Tobacco Use Types Packs/Day Years Used Date Smoking Tobacco: Never Smokeless Tobacco: Never Alcohol Use Standard Drinks/Week Comments Not Currently 0 (1 standard drink = 0.6 oz pur e alcohol) [facility] Utilities Answer Date Recorded In the past 12 months has e [employer], gas, oil, or water [employer] threatened to shut off services in your [...] any time in the past 12 m [facility], were you homeless or living in a usp (including now)? No 01/16/2025 Hunger Vital Sign [...] Heterosexual or Straight 05/05 10:26 AM EDT Last Filed Vital Signs Vital Sign Reading Time Taken Comments Blood Pressure 127/89 07/11/2025 9:08 AM EDT Pulse 68 07/11/2025 9:08 AM EDT Temperature 36.2 C (97.2 F) 05/31/2025 3:55 PM EDT Respiratory Rate 23 05/31/2025 6:55 PM EDT Oxygen Saturation 99% 07/11/2025 9:08 AM EDT Inhaled Oxygen Concentration - - Weight 102 kg (225 lb) 07/11/2025 9:08 AM EDT Height 175.3 cm (5' 9 ) 07/11/2025 9:08 AM EDT Body Mass Index 33.23 07/11/2025 9:08 AM EDT Plan of Treatment Upcoming Encounters Date Type Department Care Team (Late st Contact Info) Description 08/08/2025 11:00 AM EST Ancillary Procedure [facility] [address] [place] [address] Health Maintenance Due Date Last Done Comments CT Colonography 1967 Colonoscopy 1967 Colorectal Cancer Screening 1967 FIT-DNA 1967 FIT 1967 FOBT 1967 Sigmoidoscopy 1967 Diabetes: Retinopathy Screening 1977 Depression Screening 1979 Diabetes: Urine Protein Screening 1986 Hepatitis B Vaccines (1 of 3 - 19+ 3-dose series) 1986 Pneumococcal Vaccine: Pediatrics (0 to 5 Years) and At-Risk Patients (6 to 64 Years) (1 of 2 - PCV) 1986 Adult Tetanus 1989 Zoster Vaccines (1 of 2) 2017 Diabetes: Hemoglobin A1C 04/17/2025 025, 05/14/2023 COVID-19 Vaccine ( - 2023-2 5 season) 2025 Influenza Vaccine (#1) 2025 07/10/2017 HIB Vaccines Aged Out No longer eligi ble based on patient's age to complete this topic HPV Vaccines Aged Out No longer eligi ble based on patient's age to complete this topic IPV Vaccines Aged Out No longer eligi ble based on patient's age to complete this topic Meningococcal B Vaccine Aged Out No l onger eligible based on patient's age to complete this topic Meningococcal Vaccine Aged Out No ashely shun eligible based on patient's age to complete this topic Rotavirus Vaccines Aged Out No longer eligible based on patient's age to complete this topic Medical Devices Implanted Type Area Party Chief Device Identifier Shelf Expiration Date Model / Serial / Lot Atricure Atriclip Flex-V 35 Implanted:Qty : 1 on 05/27/2023 by Albert Resendez MD at [facility] Clip N/A: Heart Other [id number] 02/02/2026 [id number] / / [id number] Description:Trial no charge per rep, should be supply Lead,Lucinda Kent 53 - [id number] - [id number] Implanted:Qty : 1 on 01/17/2025 by Darryn Lundy MD at [facility] Lead N/A: Chest Biot[employer]ik [id number] 01/02/2027 [id number] / [id number] / Lead,Lucinda Kent 45 - [id number] - [id number] Implanted:Qty : 1 on 01/17/2025 by Darryn Lundy MD at [facility] Lead N/A: Chest Biotronik [id number] 11/04/2026 [id number] / [id number] / [id number] Yoli S 45 [id number] Implanted: (Quantity not on file) Lead 377 176 SOLIA S 45 / [id number] / [id number] Solia S 53 [id number] Implanted: (Quantity not on file) Lead 377 177 YOLI S 53 / [id number] / Pacemaker,Amv ia [place] - [id number] - [id number] Implanted:Qty : 1 on 01/17/2025 by Darryn Lundy MD at [facility] Pacemaker N/A: Chest Biotronik [id number] 06/04/2026 [id number] / [id number] / [id number] Amvia Damaso Sood [id number] Implanted: (Quantity not on file) Pacemaker 135643 AMVIIsi SOOD / [id number] / Band,Heather Whitehead core,35mm - [id number] - [id number] Implanted:Qty : 1 on 05/27/2023 by Albert Resendez MD at [facility] Prosthetic Valve N/A: Heart [employer] [id number] 07/02/2027 [id number] / [id number] / Procedures Procedure Name Priority Date/Time Associated Diagnosis Comments ECG 12 LEAD UNIT PERFORMED Routine 07/11/2025 9:05 AM EDT PAF (paroxysmal atrial fibrillation) (CMS/HCC) ECG 12-LEAD Routine 05/31/2025 5:21 PM EDT ABLATION A-FIB W/ PVI Routine 05/31/2025 3:33 PM EDT Paroxysmal A-fib (CMS/HCC) ACTIVATED CLOTTING TIME Routine 05/31/2025 2:59 PM EDT BILIRUBIN, DIRECT Routine 05/31/2025 2:4 0 PM EDT BILIRUBIN, TOTAL Routine 05/31/2025 2:40 PM EDT HAPTOGLOBIN Routine 05/31/2025 2:40 PM EDT HEMOGLOBIN Routine 05/31/2025 2:40 PM EDT HIGH SENSITIVITY TROPONIN I Routine 05/31/2025 2:40 PM EDT LACTATE DEHYDROGENASE Routine 05/31/2025 2:40 PM EDT ACTIVATED CLOTTING TIME Routine 05/31/2025 2:34 PM EDT ACTIVATED CLOTTING TIME Routine 05/31/2025 2:11 PM EDT ACTIVATED CLOTTING TIME Routine 05/31/2025 1:53 PM EDT ACTIVATED CLOTTING TIME Routine 05/31/2025 1:30 PM EDT ME AN ELECTIVE ENDOTRACHEAL AIRWAY Routine 05/31/2025 1:07 PM EDT ANESTHESIA ARTERIAL LINE PLACEMENT Routine 05/31/2025 12:01 PM EDT ECG 12-LEAD Routine 05/31/2025 11:16 AM EDT PROTIME-INR Routine 05/31/2025 10:57 AM EDT POCT GLUCOSE METER UNSOLICITED RESULTS Routine 05/31/2025 10:48 AM EDT COMPLETE TRANSTHORACIC ECHO (TTE) W/WO IMAGING AGENT, STRAIN, 3D, BUBBLE STUDY Routine 05/23/2025 12:00 PM EDT CARDIAC DEVICE CHECK CHECK - REMOTE Routine 05/23/2025 9:45 AM EDT Adjustment and management of cardiac pacemaker CARDIAC DEVICE CHECK - REMOTE - PACEMAKER Routine 05/19/2025 12:00 AM EDT POCT GLUCOSE METER UNSOLICITED RESULTS Routine 05/10/2025 7:25 AM EDT HEMOGLOBIN A1C Add-On 01/16/2025 3:09 PM EDT from Last 3 Months or Most Recently Relevant to Health Maintenance Results * ECG 12 lead unit performed (07/11/2025 9:05 AM EDT) us Darryn Lundy MD ECG ORDERABLES Final Result * ECG 12 lead (05/31/2025 5:21 PM EDT) Only the most recent of2 resultswithin the time period is included. Ventricular Rate 72 BPM GE MUSE Atrial Rate 72 BPM GE MUSE ME Interval 274 ms GE MUSE QRS DURATION 158 ms GE MUSE QT Interval 460 ms GE MUSE QTC CALCULATION(BAZE TT) 503 ms GE MUSE P [place] -89 degrees GE MUSE R-[place] -14 degrees GE MUSE T Wave [place] 99 degrees GE MUSE 05/31/2025 4:59 PM EDT 05/31/2025 6:11 PM EDT Impressions GE MUSE - 05/31/2025 6:12 PM EDT AV dual-paced rhythm with prolonged AV conduction Abnormal ECG When compared with ECG of 31-MAY-2025 11:05, Electronic ventricular pacemaker has replaced Electronic atrial pacemaker Confirmed by Stephani MCRAE SAMER J. ([id number]) on 05/31/2025 6:11:54 PM Narrative Procedure Note Noam Mcrae MD - 05/31/2025 IMPRESSION: AV dual-paced rhythm with prolonged AV conduction Abnormal ECG When compared with ECG of 31-MAY-2025 11:05, Electronic ventricular pacemaker has replaced Electronic atrial pacemaker Confirmed by Stephani MCRAE SAMER J. ([id number]) on 05/31/2025 6:11:54 PM us Darryn Lundy MD ECG ORDERABLES Final Result GE MUSE * ABLATION A-FIB W/ PVI (05/31/2025 3:33 PM EDT) Anatomical Region Laterality Modality Other Narrative 06/09/2025 5:12 PM EDT Table formatting from the original result was not included. ATRIAL FIBRILLATION ABLATION PROCEDURE NOTE DATE OF PROCEDURE: 05/31/2025 PERFORMING PHYSICIAN: Dr. Darryn Lundy CNA PER DIEM: CHAYO CONSENT: Patient NAME OF THE PROCEDURE: Pulmonary Vein Isolation and Comprehensive EP study. INDICATIONS FOR PROCEDURE: 1. Paroxysmal atrial fibrillation. PROCEDURES PERFORMED: 1. Sonosite guided venous access as noted below and images stored. 2. Comprehensive EP study and catheter ablation for persistent atrial fibrillation through the pulmonary vein isolation technique. This includes right atrial recording and pacing, His bundle recording and right ventricular recording and pacing. 3. Intracardiac EP 3D mapping. 4. Intracardiac echocardiogram 5. Left atrial and coronary sinus recording and pacing to assess ablation results. 6. Left heart pressure measurements and LV pacing and recording. 7. Induction of arrhythmia and testing of ablation results using intravenous adenosine infusion. 8. Fluroscopy. 9. Pre and Post ablation device check. FLUROSCOPY: 16.4min/ 171mGray EBL: 25cc PROCEDURE NOTE: Pt was brought to EP lab and she was in sinus rhythm, so RHONDA was deferred. Thereafter, we proceeded to do atrial fibrillation ablation. Both the groins were then prepared and draped. Ultrasound was used to determine the course and patency of the femoral veins on both sides and they were noted to be patent and the image stored in PACS. After infiltration with 1% lidocaine, 3 venous sheaths were placed in the right as noted below. Device thresholds were checked and noted to be normal. RFV: 8Fx1 CS Catheter (EZ Steer) 9Fx1: ICE catheter. 8F -->17F: Faradrive sheath for PFA catheter Heparin bolus was given followed by additional bolus and continuous intravenous drip to target ACT around 350. An intracardiac ultrasound catheter was inserted into the right atrium to examine the right atrial anatomy, atrial septum, pulmonary vein anatomy and to monitor for pericardial effusion and guide transseptal access. ICE revealed that the patient had a significantly mildy dilated right atrium and left atrium and no pericardial effusion. At this point I decided to proceed with the transseptal puncture to perform A. fib ablation. Single transseptal access technique was used to cross to the left side. Following the first transeptal access, which was achieved via puncture of the thinner aspect of the septum using Odalys needle, Octoray catheter was placed in the left atrium. Pulmonary vein and left atrial anatomic mapping were performed using a 3-D CARTO computer-based mapping system. Identification of the pulmonary vein ostia was assisted by the left atrial signals on the ablation catheter, the ICE catheter and the Octoray catheter placed in the individual pulmonary veins. I then proceeded to exchange the SL1 for 17F Faradrive sheath. Farawave multipolar catheter was advanced over a wire with negative aspiration in periodic fashion to avoid any air bubbles. Thereafter the catheter was advanced to each of the veins over the wire to maintain coaxial placement of catheter. 2-3 PFA energy pulses were given in each position and then position rotated to 36degrees to get new location and repeat PFA energy were provided. Then this process was repeated in the flower configuration in each veins. This led to complete isolation of each vein. Repeat mapping with Octoray catheter revealed isolation of all 4 veins. Exit block verified with pacing from each vein as well as different locations around the vein.LV pacing revealed no left sided retrograde accessory pathway. Adenosine did not reveal any reconnection. Burst pacing @ 280ms induced atrial flutter with CL of 430ms which later self terminated. I decided to proceed to the right atrium and then proceeded to perform CTI ablation in a lateral aspect to avoid right coronary artery. NTG was given ahead and ablation performed to complete CTI line. Bidirectional block was demonstrated with pacing revealing a timing of 269ms. Burst pacign was repeated and this time a second atrial flutter was induced with Cl of 350ms. I proceeded to map this and it appeared to be a scar mediated flutter from prior cardiac surgery. Voltage mapping revealed a linear scar from SVC to IVC with conduction break along the lower lid RA. While mapping was performed in this area, the tachycardia terminated. I then paced the location to identify the location of right phrenic nerve course. PFA catheter was placed in the lateral RA where I felt there was a breakthrpugh and ablation performed. Following this line of block was verified. Repeat EP study did not reveal any arrhythmia. The ICE catheter was used to reexamine the intracardiac anatomy and this showed no pericardial effusion. ICE catheter and all catheters were removed. Venous sheaths were pulled, and hemostasis achieved with Perclose sutures and Vascade closure device. Device threshold were verified and noted to be same as baseline. He was transferred to observation bay for observation. LA baseline (mmHg) 15/2 HR 60bpm LA [...] LA pressures with tachycardia suggestive of HFpEF. SPECIMEN REMOVED: None PLAN: 1. Anticoagulation after 2 hrs of sheath removal. 2. Protonix 40mg bid x 1 month. 3. Groin precautions. Darryn Lundy MD Cardiac Electrophysiology Darryn Lundy MD CV ELECTROPHYSIOLOGY PROCEDURES Final Result * (ABNORMAL) Activated clotting time (05/31/2025 2:59 PM EDT) Only the most recent of5 resultswithin the time period is included. Activated Clotting Time 321(H) 82 - 152 s 05/31/2025 3:[address] [facility] Blood Venous blood specimen / Unknown 05/31/2025 2:59 PM EDT 05/31/2025 3:36 PM EDT Darryn Lundy MD LAB POINT OF CARE TE ST DOCKED DEVICE UNSOLICITED RESULTS Final Result [facility] ([facility]) [address] [place] [address] * (ABNORMAL) High Sensitivity Troponin I (05/31/2025 2:40 PM EDT) [facility] High Sensitivity Troponin I 264(HH) <20 ng/L 05/31/2025 3:[address] [facility] ([facility]) Blood Venous blood specimen / Unknown Arterial Line / Unknown 05/31/2025 2:40 PM EDT 05/31/2025 2:43 PM EDT us Darryn Lundy MD LAB BLOOD ORDERABLES Final Resul t [facility] ([facility]) [address] [place], [place] [id number] * Hemoglobin (05/31/2025 2:40 PM EDT) [facility] Hemoglobin 13.3 13.0 - 17.0 g/dL 05/31/2025 3:[address] [facility] ([facility]) Blood Venous blood specimen / Unknown Arterial Line / Unknown 05/31/2025 2:40 PM EDT 05/31/2025 2:43 PM EDT us Darryn Lundy MD LAB BLOOD ORDERABLES Final Resul t Performing Organization Address City/[facility]/ZIP Co de Phone Number [facility] ([facility]) [address] [place] [address] * Lactate dehydrogenase (05/31/2025 2:40 PM EDT) Pathologist [facility] LD 171 140 - 271 U/L 05/31/2025 3:[address] [facility] ([facility]) Blood Venous blood specimen / Unknown Arterial Line / Unknown 05/31/2025 2:40 PM EDT 05/31/2025 2:43 PM EDT us Darryn Lundy MD LAB BLOOD ORDERABLES Final Resul t [facility]) [address] [place], [place] [id number] * Haptoglobin (05/31/2025 2:40 PM EDT) Haptoglobin 99.0 32.0 - 197.0 mg/dL 06/01/2025 12:[address] [facility] ([facility]) Comment:Testing performed us ing a new methodology, turbidimetry. Normal ranges have been updated. Old normal range was 26-164 mg/dL. Blood Venous blood specimen / Unknown Arterial Line / Unknown 05/31/2025 2:40 PM EDT 05/31/2025 2:43 PM EDT us Darryn Lundy MD LAB BLOOD ORDERABLES Final Resul t [facility]) [address] [place], [place] [id number] * Bilirubin, direct (05/31/2025 2:40 PM EDT) Bilirubin, Direct 0.1 0 - 0.2 mg/dL 05/31/2025 3:[address] [facility]) Blood Venous blood specimen / Unknown Arterial Line / Unknown 05/31/2025 2:40 PM EDT 05/31/2025 2:43 PM EDT us Darryn Lundy MD LAB BLOOD ORDERABLES Final Resul t [facility]) [address] [place] [address] * Bilirubin, total (05/31/2025 2:40 PM EDT) Total Bilirubin 0.6 0.3 - 1.0 mg/dL 05/31/2025 3:[address] [facility]) Blood Venous blood specimen / Unknown Arterial Line / Unknown 05/31/2025 2:40 PM EDT 05/31/2025 2:43 PM EDT us Darryn Lundy MD LAB BLOOD ORDERABLES Final Resul t [facility]) [address] [place] [address] * ME AN ELECTIVE ENDOTRACHEAL AIRWAY (05/31/2025 1:07 PM EDT) Sonja Gabriel MD - 05/31/2025 1:07 PM EDT Sonja Mccarty MD 05/31/2025 2:43 PM Airway Date/Time: 05/31/2025 1:07 PM Reason: elective Airway not difficult General Information and Staff Patient location during procedure: OR Anesthesiologist: Sonja Mccarty MD Performed: resident/ONLINE COMMUNICATIONS MANAGER/CAA Patient Condition Indications for airway management: anesthesia Patient position: sniffing Planned trial extubation Sedation level: deep Final Airway Details Preoxygenated: yes Final airway type: endotracheal airway Successful airway: ETT Cuffed: yes Successful intubation technique: video laryngoscopy Adjuncts used in placement: intubating stylet Endotracheal tube insertion site: oral Blade: Nix Blade size: #3 ETT size (mm): 8.0 Cormack-Lehane Classification: grade I - full view of glottis Placement verified by: chest auscultation and capnometry Measured from: lips ETT to lips (cm): 23 Number of attempts at approach: 1 Number of other approaches attempted: 0 Sonja Mccarty MD ANESTHESIA ORDERABLES Final Result * ANESTHESIA ARTERIAL LINE PLACEMENT (05/31/2025 12:01 PM EDT) Sonja Gabriel MD - 05/31/2025 12:01 PM EDT Sonja Mccarty MD 05/31/2025 2:43 PM Arterial Line: Date/Time: 05/31/2025 12:01 PM An arterial line was placed Procedure performed using ultrasound guidance.in the pre-op for the following indication(s): . A 20 G (size), 5 cm (length), Angiocath (type) catheter was placed, into the Right radial artery, secured by Tegaderm. Events: patient tolerated procedure well with no complications. Additional notes: Sterile precautions used, including, if applicable: Gloves, Hat, Mask, Skin prep, Sterile drape, And Ultrasound probe cover. VSS. Staffing Performed: resident/ONLINE COMMUNICATIONS MANAGER/CAA Anesthesiologist: Sonja Mccarty MD Resident/ONLINE COMMUNICATIONS MANAGER: Damien Barnes MD Performed by: Damien Barnes MD Authorized by: Sonja Mccarty MD us Sonja Mccarty MD ANESTHESIA ORDERABLES Final Result * Protime-INR (05/31/2025 10:57 AM EDT) Protime 13.5 12.3 - 14.8 Seconds 05/31/2025 11:[address] [facility] ([facility]) INR 1.03 0.90 - 1.10 05/31/2025 11:[address] [facility] ([place]) Comment: [facility] RECOMMENDED INR FOR WARFARIN THERAPY CONDITION INR PROPHYLAXIS OF VENOUS THROMBOSIS 2-3 (HIGH-RISK SURGERY) TREATMENT OF VENOUS THROMBOSIS 2-3 TREATMENT OF PULMONARY EMBOLISM 2-3 PREVENTION OF SYSTEMIC EMBOLISM: 2-3 ACUTE MYOCARDIAL INFARCTION TISSUE HEART VALVES VALVULAR HEART DISEASE ATRIAL FIBRILLATION RECURRENT SYSTEMIC EMBOLISM MECHANICAL HEART VALVE 2.5-3.5 FROM: ORAL ANTICOAGULANTS. MECHANISM OF ACTION, CLINICAL EFFECTIVENESS, AND OPTIMAL THERAPEUTIC RANGE. CHEST 1995;108:231S-246S. Blood Venous blood specimen / Unknown Venipuncture / Unknown 05/31/2025 10:57 AM EDT 05/31/2025 11:00 AM EDT us Darryn Lundy MD LAB BLOOD ORDERABLES Final Resul t [facility] ([facility]) [address] [place] [address] * (ABNORMAL) POCT glucose meter (05/31/2025 10:48 AM EDT) Only the most recent of2 resultswithin the time period is included. Glucose POC 110(H) 70 - 105 mg/dL 05/31/2025 11:[address] [facility]) Comment:ngrotha Blood Capillary blood specimen / Unknown 05/31/2025 10:48 AM EDT 05/31/2025 11:11 AM EDT Narrative [facility] - 05/31/2025 11:11 AM EDT Waived Testing in the ED is performed under the ED CLIA certificate #[id number]. Darryn Lundy MD LAB BLOOD ORDERABLES Final Resul t [facility] ([facility]) [address] [place] [address] * Complete Echo (TTE) w/wo Imaging Agent, Strain, 3D, Bubble Study (05/23/2025 12:00 PM EDT) Anatomical Region Laterality Modality Ultrasound Marisa Provider CV ECHO PROCEDURES Final Result * CARDIAC DEVICE CHECK - REMOTE - PACEMAKER (05/23/2025 9:45 AM EDT) Darryn Lundy MD CV IMPLANTABLE CARDIAC DEVICE ME OCEDURES Final Result CPACS * Cardiac device check - Remote pacemaker (05/19/2025 12:00 AM EDT) Anatomical Region Laterality Modality Other 05/19/2025 Darryn Lundy MD CV IMPLANTABLE CARDIAC DEVICE ME OCEDURES Final Result * (ABNORMAL) Hemoglobin A1c (01/16/2025 3:09 PM EDT) Hemoglobin A1C 6.6(H) 4.0 - 6.0 % 01/17/2025 10:[address] [facility] Estimated Average Glucose 143 mg/dL 01/17/2025 10:[address] [facility] Blood Venous blood specimen / Unknown Arterial Line / Unknown 01/16/2025 3:09 PM EDT 01/16/2025 3:49 PM EDT us Champ Caceres MD LAB BLOOD ORDERABLES Final Resul t [facility]) [address] [place] [address] from Last 3 Months or Most Recently Relevant to Health Maintenance Insurance Advance Directives * Full Code (Latest Code Status on File) Date Activated Date Inactivated Comments 05/31/2025 4:11 PM 05/31/2025 9:08 PM * Full Code Date Activated Date Inactivated Comments 01/16/2025 2:38 PM 01/18/2025 5:33 PM * Full Code Date Activated Date Inactivated Comments 05/27/2023 2:19 PM 06/05/2023 3:54 PM Care Teams Global Regulatory Affairs Manager Relationship Specialty Start Date End Date Giovanni Velasquez MD [address] [facility] [place] [address] [address] PCP - General 01/14/23 Akiko Fernandez MD [address] [place] [address] Licensed Life And Health Agent 05/25/23
--- OUTSIDE RECORDS SUMMARY | 2025-07-19 08:05 | XMS_ITS | Encounter Summary ---
Author Organization [facility] Address [address] [place] [address] Care Team Providers Care Weld Engineer Name Role Phone Giovanni Velasquez MD Primary Care Provider [phone] Akiko Fernandez MD Unavailable [phone] Lili Franco RRT Unavailable [phone] Reason for Visit * Reason Comments Med Refill Encounter Details Date Type Department Care Team (Late st Contact Info) Description 07/15/2023 Refill [facility] Vascular and Endovascular Surgery [address] [place] [address] Socrates Flynna, BELT MAKER HELPER [address] [place] [address] Pulmonary congestion Social History Tobacco Use Types Packs/Day Years Used Date Smoking Tobacco: Never Smokeless Tobacco: Never Alcohol Use Standard Drinks/Week Comments Not Currently 0 (1 standard drink = 0.6 oz pur e alcohol) Humiliation, Afraid, Rape, and Kick questionnair e Answer Date Recorded Within the last year, have y ou been afraid of your partner or ex-partner? No 05/27/2023 Emotionally Abused Not on file 05/27/2023 Physically Abused Not on file 05/27/2023 Sexually Abused Not on file 05/27/2023 Overall Financial Resource Strain (CARDIA) Answe r Date Recorded How hard is it for you to pa y for the very basics like food, housing, medical care, and heating? Not hard at all 05/27/2023 PHQ-2 Answer Date Recorded Patient Health Questionnaire-2 Score 0 06/18/2023 MA Safety & Environment Answer Date Rec orded Within the last year, have y ou been afraid of your partner or ex-partner? No 05/27/2023 Emotionally Abused Not on file 05/27/2023 Physically Abused Not on file 05/27/2023 Sexually Abused Not on file 05/27/2023 In the past year have you be en physically or sexually abused? Unrecognized value 05/27/2023 Transportation Answer Date Recorded In the past 12 months, has l ack of transportation kept you from medical appointments or from getting medications? No 05/27/2023 Lack of Transportation (Non-Medical) Not on file 05/27/2023 Housing Stability Vital Sign Answer Chucky e Recorded Unable to Pay for Housing in the Last Year Not o n file 05/27/2023 Number of Places Lived in the Last Year Not on f ile 05/27/2023 In the last 12 months, was t here a time when you did not have a steady place to sleep or slept in a snf (including now)? No 05/27/2023 Hunger Vital Sign Answer Date Recorded Within the past 12 months, y ou worried that your food would run out before you got the money to buy more. Never true 05/27/20 Ran Out of Food in the Last Year Not on file 05/27/2023 Sex and Gender Information Value Date Recorded Sex Assigned at Male 01/18/2025 8:54 AM EDT Legal Sex Male 11:52 AM EDT Gender Identity Male 01/18/2025 8:54 AM EDT Sexual Orientation Heterosexual or Straight 05/05 10:26 AM EDT documented as of this encounter Plan of Treatment Upcoming Encounters Date Type Department Care Team (Late st Contact Info) Description 08/08/2025 11:00 AM EST Ancillary Procedure [facility] [address] [place] [id number] documented as of this encounter Visit Diagnoses Diagnosis Pulmonary congestion Pulmonary congestion and hypostasis documented in this encounter Care Teams Weld Engineer Relationship Specialty Start Date End Date Giovanni Velasquez MD [address] [facility] [place] [address] [address] PCP - General 01/14/23 Akiko Fernandez MD [address] [address] Industrial Insulator 05/25/23 Lili Franco, LOYDA [facility] Respiratory Therapy/Pulmonary Disease Department [address] [place] [address] Respiratory Navigator Respiratory Therapy 07/01/2310/07/24 documented as of this encounter
--- OUTSIDE RECORDS SUMMARY | 2025-07-19 08:05 | XMS_ITS | Patient Health Record ---
Author Organization [facility] in [place] Address [address] [place] [address] Care Team Providers Care Brick Mason Name Role Phone Navdeep Velasquez Primary Care Provider [phone] Monica Francois [phone] Allergies No Known Allergies Results Component Value Reference Range Notes CA echo doppler complete Reviewed date:11/22/2024 08:35:49 PM Interpretation: Performing Lab: Notes/Report: Source Facility: [place] [address] Cardiology Report Signed Patient: FLYNN ARNETT MR#: [id number] : 1965 Acct:[id number] Age/Sex: 59 / M ADM Date: 11/22/24 Loc: CARD Attending Dr: Adonis Jacob M.D. Ordering Physician: Adonis Jacob M.D. Date of Service: 11/22/24 Procedure(s): CA echo doppler complete Accession Number(s): [id number] cc: Adonis Jacob M.D.; Lauren Velasquez M.D. Patient Name: FLYNN ARNETT MR#: [id number] : 1965 Exam Date: 11/22/2024 Ordering Doctor: DR ADONIS JACOB M.D. ECHOCARDIOGRAM REPORT PROCEDURE: CA ECHO DOPPLER COMPLETE INDICATIONS: Mitral valve regurgitation COMPARISON: None. DESCRIPTION: COMPLETE ECHOCARDIOGRAM Real-time transthoracic echocardiography with 2D, M-mode, spectral and color flow Doppler performed. QUALITY: Technical quality was good. LEFT VENTRICLE: Normal chamber size. Moderate concentric left ventricular hypertrophy. LV EF: Global left ventricular systolic function is normal. Calculated left ventricular ejection fraction is 63%. No significant wall motion abnormalities. DIASTOLIC: Diastolic function cannot be assessed. E/E' suggestive of volume overload. ATRIAL SEPTUM: Inadequately seen. LEFT ATRIUM: Severe dilatation. RIGHT ATRIUM: Mild dilatation. RIGHT VENTRICLE: Normal chamber size. Normal right ventricular systolic function. TRICUSPID VALVE: Normal mobility and thickness. No stenosis with trivial regurgitation. No evidence of pulmonary hypertension. RVSP 34mmHg MITRAL VALVE: Evidence of prior mitral valve ring and repair seen. Mild to moderate mitral regurgitation. V-max 1.43 m/s, mean gradient 2.92 mmHg. AORTIC VALVE: Normal trileaflet appearance. No visible sclerosis. Normal leaflet mobility. No evidence of aortic valve stenosis. Mild aortic regurgitation. AORTIC ROOT: Normal diameter and appearance. Mild dilatation of the ascending aorta measuring 4.0 cm which is mildly increased from previous study of 04/08/24 at 3.9cm. PULMONIC VALVE: Normal thickness and mobility. No stenosis. Trivial regurgitation. PERICARDIUM: No evidence of pericardial effusion. IVC: Collapses with inspirations. Normal size. CONCLUSION: 1. Global left ventricular systolic function is normal; visually estimated ejection fraction of 60 to 65% 2. Normal right ventricular size and systolic function 3. Moderate left ventricular hypertrophy 4. E/E' prime suggestive of volume overload 5. The left atrium is severely dilated 6. Right atrium is mildly dilated 7. Evidence of prior mitral valve repair and ring seen; mild to moderate mitral regurgitation 8. Mild aortic valve regurgitation 9. The ascending aorta is mildly dilated Adult Echocardiography Procedure Report Left Ventricle LVEDD (3.7 - 5.6 cm): 5.23 cm LVESD (2.2 - 4.0 cm): 3.60 cm LVIVS thickness (0.6 - 1.2 cm): 1.52 cm LVPW thickness (0.5 - 1.0 cm): 1.44 cm e': 0.06 m/s E - e': 21.16 LVOT Max Gradient: 3.94 mm[Hg] LVOT Area (cm2): 0.99 m/s Peak Velocity (LVOT): 0.99 m/s Mean Velocity (LVOT): 0.67 m/s LVOT Diameter 2.17 cm Left Atrium LA Volume Index (2D A2C): 55.32 ml/m2 Left Atrium Systolic Dimension: 4.71 cm Mitral Valve MV E to A Ratio: 1.12 Mitral Valve A-Wave Peak Velocity: 1.10 m/s Mitral Valve E-Wave Peak Velocity: 1.24 m/s Right Ventricle RV Internal Diastolic Dimension: 3.29 cm Aorta AO Root Diam: 3.80 cm Ascending Ao Diam: 4.01 cm Aortic Valve AoV Area (Peak Donal): 2.67 cm2, 2.67 cm2 AoV Area (VTI): 2.67 cm2, 2.67 cm2 Peak Velocity(Antegrade Flow): 1.37 m/s Peak Gradient(Antegrade Flow): 7.52 mm[Hg] Mean Velocity(Antegrade Flow): 1.01 m/s Mean Gradient(Antegrade Flow): 4.60 mm[Hg] Velocity Time Integral: 36.81 cm Tricuspid Valve Peak Velocity (Regurgitant Flow): 2.79 m/s, 2.37 m/s, 2.17 m/s Pulmonic Valve Mean Gradient: 2.53 mm[Hg], 1.68 mm[Hg] Mean Velocity: 0.73 m/s, 0.61 m/s Peak Velocity: 1.04 m/s Peak Gradient: 5.52 mm[Hg], 3.22 mm[Hg] Right Atrium Right Atrium Systolic Pressure: 43.62 ml, 43.62 ml Dictated by: Adonis Jacob M.D. on 11/22/2024 at 12:12 Approved by: Adonis Jacob M.D. on 11/22/2024 at 12:19 Dictated By: Adonis Jacob M.D. Signed By: 11/22/24 1220 DD/ 1219 TD/TT: Licensed Clinical Psychologist: PTT HEPARIN MONITOR Reviewed date:01/16/2025 08:21:29 PM Interpretation: Performing Lab: Notes/Report: [facility] , PTT Heparin Monitor 36.5 43.5-61.5 sec RESULTS CALLED TO Jennie Alfaro RN Performing Lab: see note ML - [facility] LB ECG 12 lead Reviewed date:01/16/2025 08:37:33 PM Interpretation: Performing Lab: Notes/Report: Source Facility: [facility]-[address] [place] [address] The [place] [id number] Electrocardiograph Report Signed Patient: FLYNN ARNETT MR#: [id number] : 1965 Acct:[id number] Age/Sex: 59 / M ADM Date: 01/15/25 Loc: MS 223- Attending Dr: Lauren Velasquez M.D. Ordering Physician: Lauren Velasquez M.D. Date of Service: 01/16/25 Procedure(s): ECG 12 lead Accession Number(s): [id number] cc: [facility] Test Date: 2025-01-16 Pat Name: FLYNN ARNETT Department: Room: [facility] Gender: Male Skein Tier: : 1965 Requested By: LAUREN VELASQUEZ Order Number: [id number] Reading MD: AMANDEEP MORAN M.D. Measurements Intervals Ransom Rate: 44 P: -05292 ME: -66226 QRS: 66 QRSD: 88 T: 79 QT: 482 QTc: 434 Interpretive Statements Atrial fibrillation with slow ventricular response 9150 abnormal ECG Compared to ECG 01/16/2025 09:23:21 Sinus rhythm no longer present Electronically Signed On 01-16-2025 20:32:25 EDT by AMANDEEP MORAN M.D. Dictated By: AMANDEEP MORAN Signed By: 01/16/252031 DD/ 1224 TD/TT: Licensed Clinical Psychologist: Troponin I High Sensitivity Reviewed date:01/16/2025 08:21:29 PM Interpretation: Performing Lab: Notes/Report: [facility] , Troponin I High Sensitivity 96.2 4.0-76.1 pg/m L RESULTS CALLED TO Jennie Alfaro RN CUT-OFF POINTS HAVE BEEN ESTABLISHED BASED ON THE FOURTH UNIVERSAL DEFINITION OF MYOCARDIAL INFARCTION. THE UPPER REFERENCE LIMIT (URL) OF TROPONIN, DEFINED THE 99TH PERCENTILE OF cTnI DISTRIBUTION IN A REFERENCE POPULATION, HAS BEEN CONFIRMED THE DECISION THRESHOLD FOR MA DIAGNOSIS. 99TH PERCENTILE = 76.2 PG/ML NOTE: HIGH-SENSITIVITY TROPONIN ASSAY IS NOT INTENDED TO BE USED IN ISOLATION BUT SHOULD BE INTERPRETED IN CONJUNCTION WITH OTHER DIAGNOSTIC AND CLINICAL INFORMATION. Performing Lab: see note ML - [facility] LB ECG 12 lead Reviewed date:02/16/2025 08:46:30 PM Interpretation: Performing Lab: Notes/Report: Source Facility: [facility]-[address] [place] [address] [place] [address] Electrocardiograph Report Signed Patient: FLYNN ARNETT MR#: [id number] : 1965 Acct:[id number] Age/Sex: 59 / M ADM Date: 02/16/25 Loc: ER Attending Dr: Ordering Physician: Jose Armando Rider M.D. Date of Service: 02/16/25 Procedure(s): ECG 12 lead Accession Number(s): [id number] cc: [facility] Test Date: 2025-02-16 Pat Name: FLYNN ARNETT Department: Room: - Gender: Male Skein Tier: : 1965 Requested By: 1030 Order Number: [id number] Reading MD: AMANDEEP MORAN M.D. Measurements Intervals Ransom Rate: 75 P: -79 ME: 156 QRS: 21 QRSD: 82 T: 50 QT: 378 QTc: 407 Interpretive Statements Electronic atrial pacemaker abnormal ECG Compared to ECG 02/16/2025 16:02:03 Electronic atrial pacemaker has replaced atrial fibrillation ST (T wave) deviation no longer present Electronically Signed On 02-16-2025 19:56:41 EDT by AMANDEEP MORAN M.D. Dictated By: AMANDEEP MORAN Signed By: 02/16/251955 DD/ 42 TD/TT: Licensed Clinical Psychologist: PROF CARMELITA Bell ([facility]) Reviewed date:05/07/2025 07:40:56 PM Interpretation: Performing Lab: Notes/Report: [facility] , Sodium 141 136-145 mmol/L Potassium 4.5 3.5-5.1 mmol/L Chloride 105 98-107 mmol/L Carbon Dioxide 24.7 21.0-32.0 mmol/L Anion Gap 15.8 Glucose 127 74-106 mg/dL Blood Urea Nitrogen 15.0 7.0-18.0 mg/dL Creatinine 1.22 0.70-1.30 mg/dL Estimated GFR ( Katty >60 >=60 mL/min/1.73m 2 Estimated GFR (Non- Liz >60 >=60 mL/min/1.73m 2 BUN Creatinine Ratio 12.3 Calcium 9.2 8.5-10.1 mg/dL Performing Lab: see note ML - [facility] CA echo doppler complete Reviewed date:05/23/2025 01:29:02 PM Interpretation: Performing Lab: Notes/Report: Source Facility: [place] [address] Cardiology Report Signed Patient: FLYNN ARNETT MR#: [id number] : 1965 Acct:[id number] Age/Sex: 59 / M ADM Date: 05/23/25 Loc: CARD Attending Dr: Adonis Jacob M.D. Ordering Physician: Adonis Jacob M.D. Date of Service: 05/23/25 Procedure(s): CA echo doppler complete Accession Number(s): [id number] cc: Adonis Jacob M.D.; Lauren Velasquez M.D. Patient Name: FLYNN ARNETT MR#: [id number] : 1965 Exam Date: 05/23/2025 Ordering Doctor: DR ADONIS JACOB M.D. ECHOCARDIOGRAM REPORT PROCEDURE: CA ECHO DOPPLER COMPLETE INDICATIONS: Mitral valve regurgitation, mitral valve ring, pacemaker COMPARISON: None. DESCRIPTION: COMPLETE ECHOCARDIOGRAM Real-time transthoracic echocardiography with 2D, M-mode, spectral and color flow Doppler performed. QUALITY: Technical quality was good. LEFT VENTRICLE: Normal chamber size. Mild concentric left ventricular hypertrophy. LV EF: Global left ventricular systolic function is difficult to assess but appears reduced; visually estimated ejection fraction is 35 to 40%. Calculated left ventricular ejection fraction is 42%. Abnormal septal motion; this is not unusual in the postoperative outpatient. DIASTOLIC: Unable to assess diastolic function. ATRIAL SEPTUM: Visually appears intact. LEFT ATRIUM: Moderate dilatation. RIGHT ATRIUM: Mild dilatation. RIGHT VENTRICLE: Mild dilatation. Systolic function appears preserved. Pacer wire present. TRICUSPID VALVE: Normal mobility and thickness. No stenosis with trivial regurgitation. Normal right ventricular systolic pressure. MITRAL VALVE: Trivial mitral regurgitation. Evidence of prior mitral valve ring and repair. Vmax 1.59 m/s, Mean 4.26 mmHg AORTIC VALVE: Normal trileaflet appearance. No visible sclerosis. Normal leaflet mobility. No evidence of aortic valve stenosis. Trivial aortic regurgitation. AORTIC ROOT: Normal diameter and appearance. Ascending aorta is dilated (3.9 cm). PULMONIC VALVE: Normal thickness and mobility. No stenosis. Trivial regurgitation. PERICARDIUM: Anterior free space; trivial effusion versus fat pad. IVC: Collapses with inspiration. CONCLUSION: 1. Global left ventricular systolic function is difficult to assess but appears moderately reduced; visually estimated ejection fraction is 35 to 40% 2. The right ventricle is mildly dilated with normal systolic function 3. Mild left ventricular hypertrophy 4. Biatrial dilatation 5. Evidence of prior mitral valve repair; trivial mitral regurgitation 6. The ascending aorta is mildly dilated 7. Anterior free space; trivial effusion versus Adult Echocardiography Procedure Report Left Ventricle LVEDD (3.7 - 5.6 cm): 5.23 cm LVESD (2.2 - 4.0 cm): 3.85 cm LVIVS thickness (0.6 - 1.2 cm): 1.28 cm LVPW thickness (0.5 - 1.0 cm): 1.18 cm LVOT Max Gradient: 2.13 mm[Hg] LVOT Area (cm2): 0.73 m/s Peak Velocity (LVOT): 0.73 m/s Mean Velocity (LVOT): 0.55 m/s LVOT Diameter 2.67 cm Left Ventricular Ejection Fraction: 42.49 % Left Atrium LA Volume Index (2D A2C): 47.77 ml/m2 Left Atrium Systolic Dimension: 4.68 cm Mitral Valve MV E to A Ratio: 0.77 Mitral Valve A-Wave Peak Velocity: 1.43 m/s Mitral Valve E-Wave Peak Velocity: 1.10 m/s Right Ventricle Aorta AO Root Diam: 4.05 cm Ascending Ao Diam: 3.89 cm Aortic Valve AoV Area (Peak Donal): 4.87 cm2, 4.87 cm2 AoV Area (VTI): 4.65 cm2, 4.65 cm2 Peak Velocity(Antegrade Flow): 0.84 m/s Peak Gradient(Antegrade Flow): 2.80 mm[Hg] Mean Velocity(Antegrade Flow): 0.54 m/s Mean Gradient(Antegrade Flow): 1.35 mm[Hg] Velocity Time Integral: 19.43 cm Tricuspid Valve Peak Velocity (Regurgitant Flow): 2.00 m/s, 2.13 m/s Pulmonic Valve Peak Gradient: 2.49 mm[Hg], 2.11 mm[Hg] Right Atrium Right Atrium Systolic Pressure: 59.16 ml, 59.16 ml Dictated by: Adonis Jacob M.D. on 05/23/2025 at 10:56 Approved by: Adonis Jacob M.D. on 05/23/2025 at 11:01 Dictated By: Adonis Jacob M.D. Signed By: 05/23/25 1102 DD/ 1101 TD/TT: Licensed Clinical Psychologist: CBC AUTO DIFF Reviewed date:05/07/2025 07:40:56 PM Interpretation: Performing Lab: Notes/Report: [facility] , White Blood Count 7.0 4.0-11.0 10 3/uL Red Blood Count 5.59 4.70-6.10 10 6/uL Hemoglobin 15.6 14.0-18.0 g/dL Hematocrit 46.8 42.0-54.0 % Mean Corpuscular Volume 83.7 80.0-94.0 fL Mean Corpuscular Hemoglobin 27.9 25.9-34.0 pg Mean Corpuscular HGB Conc 33.3 29.9-35.2 g/dL Red Cell Distribution Width 14.0 11.0-15.0 % Platelet Count 215 150-450 10 3/uL Mean Platelet Volume 10.2 9.5-13.5 fL Neutrophils Percent Auto 47.3 43.0-75.0 % Lymphocytes Percent Auto 39.6 20.5-60.0 % Monocytes Percent Auto 7.8 1.7-12.0 % Eosinophils Percent Auto 4.2 0.9-7.0 % Basophils Percent Auto 0.7 0.2-2.0 % Immature Granulocytes Pct Auto 0.4 0.0-0.5 % Neutrophils Absolute Auto 3.3 1.4-6.5 10 3/uL Lymphocytes Absolute Auto 2.8 1.2-3.8 10 3/uL Monocytes Absolute Auto 0.5 0.3-0.8 10 3/uL Eosinophils Absolute Auto 0.3 0.0-0.7 10 3/uL Basophils Absolute Auto 0.1 0.0-0.1 10 3/uL Immature Granulocytes Abs Auto 0.03 0.00-0.03 10 3/uL Performing Lab: see note ML - [facility] LB ECG 12 lead Reviewed date:02/16/2025 08:46:30 PM Interpretation: Performing Lab: Notes/Report: Source Facility: [place] [address] Electrocardiograph Report Signed Patient: FLYNN ARNETT MR#: [id number] : 1965 Acct:[id number] Age/Sex: 59 / M ADM Date: 02/16/25 Loc: ER Attending Dr: Ordering Physician: Jose Armando Rider M.D. Date of Service: 02/16/25 Procedure(s): ECG 12 lead Accession Number(s): [id number] cc: [facility] Test Date: 2025-02-16 Pat Name: FLYNN ARNETT Department: Room: - Gender: Male Skein Tier: : 1965 Requested By: 1030 Order Number: [id number] Reading MD: AMANDEEP MORAN M.D. Measurements Intervals Ransom Rate: 110 P: 242 ME: 242 QRS: 34 QRSD: 78 T: 62 QT: 328 QTc: 393 Interpretive Statements ATRIAL FIBRILLATION WITH RAPID VENTRICULAR RESPONSE [address] depression 9150 abnormal ECG Compared to ECG 02/09/2025 15:19:03 Atrial flutter no longer present Electronically Signed On 02-16-2025 19:53:04 EDT by AMANDEEP MORAN M.D. Dictated By: AMANDEEP MORAN Signed By: 02/16/251952 DD/ 152 TD/TT: Licensed Clinical Psychologist: Troponin I High Sensitivity Reviewed date:02/16/2025 08:46:30 PM Interpretation: Performing Lab: Notes/Report: [facility] , Troponin I High Sensitivity 9.4 4.0-76.1 pg/m L CUT-OFF POINTS HAVE BEEN ESTABLISHED BASED ON THE FOURTH UNIVERSAL DEFINITION OF MYOCARDIAL INFARCTION. THE UPPER REFERENCE LIMIT (URL) OF TROPONIN, DEFINED THE 99TH PERCENTILE OF cTnI DISTRIBUTION IN A REFERENCE POPULATION, HAS BEEN CONFIRMED THE DECISION THRESHOLD FOR MA DIAGNOSIS. 99TH PERCENTILE = 76.2 PG/ML NOTE: HIGH-SENSITIVITY TROPONIN ASSAY IS NOT INTENDED TO BE USED IN ISOLATION BUT SHOULD BE INTERPRETED IN CONJUNCTION WITH OTHER DIAGNOSTIC AND CLINICAL INFORMATION. Performing Lab: see note ML - [facility] LB PROF CHEM 8 (BAS METB) Reviewed date:02/16/2025 08:46:30 PM Interpretation: Performing Lab: Notes/Report: [facility] , Sodium 139 136-145 mmol/L Potassium 4.5 3.5-5.1 mmol/L Chloride 105 98-107 mmol/L Carbon Dioxide 22.0 21.0-32.0 mmol/L Anion Gap 16.5 Glucose 104 74-106 mg/dL Blood Urea Nitrogen 23.0 7.0-18.0 mg/dL Creatinine 1.43 0.70-1.30 mg/dL Estimated GFR ( Katty >60 >=60 mL/min/1.73m 2 Estimated GFR (Non- Liz 51 >=60 mL/min/1.73m 2 BUN Creatinine Ratio 16.1 Calcium 9.3 8.5-10.1 mg/dL Performing Lab: see note ML - [facility] LB MAGNESIUM Reviewed date:02/16/2025 08:46:30 PM Interpretation: Performing Lab: Notes/Report: [facility] , Magnesium 2.0 1.8-2.4 mg/dL Performing Lab: see note ML - [facility] LB CBC AUTO DIFF Reviewed date:02/16/2025 08:46:30 PM Interpretation: Performing Lab: Notes/Report: [facility] , White Blood Count 8.8 4.0-11.0 10 3/uL Red Blood Count 5.86 4.70-6.10 10 6/uL Hemoglobin 16.2 14.0-18.0 g/dL Hematocrit 47.7 42.0-54.0 % Mean Corpuscular Volume 81.4 80.0-94.0 fL Mean Corpuscular Hemoglobin 27.6 25.9-34.0 pg Mean Corpuscular HGB Conc 34.0 29.9-35.2 g/dL Red Cell Distribution Width 14.5 11.0-15.0 % Platelet Count 241 150-450 10 3/uL Mean Platelet Volume 10.8 9.5-13.5 fL Neutrophils Percent Auto 54.6 43.0-75.0 % Lymphocytes Percent Auto 33.0 20.5-60.0 % Monocytes Percent Auto 8.8 1.7-12.0 % Eosinophils Percent Auto 2.8 0.9-7.0 % Basophils Percent Auto 0.5 0.2-2.0 % Immature Granulocytes Pct Auto 0.3 0.0-0.5 % Neutrophils Absolute Auto 4.8 1.4-6.5 10 3/uL Lymphocytes Absolute Auto 2.9 1.2-3.8 10 3/uL Monocytes Absolute Auto 0.8 0.3-0.8 10 3/uL Eosinophils Absolute Auto 0.3 0.0-0.7 10 3/uL Basophils Absolute Auto 0.0 0.0-0.1 10 3/uL Immature Granulocytes Abs Auto 0.03 0.00-0.03 10 3/uL Performing Lab: see note ML - [facility] LB ECG 12 lead Reviewed date:02/10/2025 07:17:26 AM Interpretation: Performing Lab: Notes/Report: Source Facility: [facility]-[address] [place] [address] [place] [address] Electrocardiograph Report Signed Patient: FLYNN ARNETT MR#: [id number] : 1965 Acct:[id number] Age/Sex: 59 / M ADM Date: 02/09/25 Loc: ER Attending Dr: Ordering Physician: Jose Armando Rider M.D. Date of Service: 02/09/25 Procedure(s): ECG 12 lead Accession Number(s): [id number] cc: [facility] Test Date: 2025-02-09 Pat Name: FLYNN ARNETT Department: Room: - Gender: Male Skein Tier: : 1965 Requested By: 1030 Order Number: [id number] Reading MD: AMANDEEP MORAN M.D. Measurements Intervals Ransom Rate: 97 P: 255 ME: 224 QRS: 79 QRSD: 82 T: 42 QT: 354 QTc: 409 Interpretive Statements Atrial flutter with 3:1 AV conduction [address] depression 4664 Twave abnormality, possible inferior ischemia 9150 abnormal ECG Compared to ECG 01/16/2025 12:24:24 Atrial flutter has replaced atrial fibrillation Electronically Signed On 02-09-2025 21:35:12 EDT by AMANDEEP MORAN M.D. Dictated By: AMANDEEP MORAN Signed By: 02/09/259 DD/ 0887 TD/TT: Licensed Clinical Psychologist: Troponin I High Sensitivity Reviewed date:02/09/2025 05:06:01 PM Interpretation: Performing Lab: Notes/Report: [facility] , Troponin I High Sensitivity 6.3 4.0-76.1 pg/m L CUT-OFF POINTS HAVE BEEN ESTABLISHED BASED ON THE FOURTH UNIVERSAL DEFINITION OF MYOCARDIAL INFARCTION. THE UPPER REFERENCE LIMIT (URL) OF TROPONIN, DEFINED THE 99TH PERCENTILE OF cTnI DISTRIBUTION IN A REFERENCE POPULATION, HAS BEEN CONFIRMED THE DECISION THRESHOLD FOR MA DIAGNOSIS. 99TH PERCENTILE = 76.2 PG/ML NOTE: HIGH-SENSITIVITY TROPONIN ASSAY IS NOT INTENDED TO BE USED IN ISOLATION BUT SHOULD BE INTERPRETED IN CONJUNCTION WITH OTHER DIAGNOSTIC AND CLINICAL INFORMATION. Performing Lab: see note ML - [facility] LB PROF CHEM 8 (BAS METB) Reviewed date:02/09/2025 05:06:01 PM Interpretation: Performing Lab: Notes/Report: [facility] , Sodium 136 136-145 mmol/L Potassium 4.0 3.5-5.1 mmol/L Chloride 105 98-107 mmol/L Carbon Dioxide 21.7 21.0-32.0 mmol/L Anion Gap 13.3 Glucose 178 74-106 mg/dL Blood Urea Nitrogen 19.0 7.0-18.0 mg/dL Creatinine 1.61 0.70-1.30 mg/dL Estimated GFR ( Katty 54 >=60 mL/min/1.73m 2 Estimated GFR (Non- Liz 44 >=60 mL/min/1.73m 2 BUN Creatinine Ratio 11.8 Calcium 8.4 8.5-10.1 mg/dL Performing Lab: see note ML - [facility] LB CBC AUTO DIFF Reviewed date:02/09/2025 05:06:01 PM Interpretation: Performing Lab: Notes/Report: [facility] , White Blood Count 6.2 4.0-11.0 10 3/uL Red Blood Count 5.94 4.70-6.10 10 6/uL Hemoglobin 16.3 14.0-18.0 g/dL Hematocrit 48.5 42.0-54.0 % Mean Corpuscular Volume 81.6 80.0-94.0 fL Mean Corpuscular Hemoglobin 27.4 25.9-34.0 pg Mean Corpuscular HGB Conc 33.6 29.9-35.2 g/dL Red Cell Distribution Width 14.5 11.0-15.0 % Platelet Count 230 150-450 10 3/uL Mean Platelet Volume 10.7 9.5-13.5 fL Neutrophils Percent Auto 48.5 43.0-75.0 % Lymphocytes Percent Auto 36.8 20.5-60.0 % Monocytes Percent Auto 9.0 1.7-12.0 % Eosinophils Percent Auto 4.8 0.9-7.0 % Basophils Percent Auto 0.6 0.2-2.0 % Immature Granulocytes Pct Auto 0.3 0.0-0.5 % Neutrophils Absolute Auto 3.0 1.4-6.5 10 3/uL Lymphocytes Absolute Auto 2.3 1.2-3.8 10 3/uL Monocytes Absolute Auto 0.6 0.3-0.8 10 3/uL Eosinophils Absolute Auto 0.3 0.0-0.7 10 3/uL Basophils Absolute Auto 0.0 0.0-0.1 10 3/uL Immature Granulocytes Abs Auto 0.02 0.00-0.03 10 3/uL Performing Lab: see note ML - [facility] LB Troponin I High Sensitivity Reviewed date:01/16/2025 08:21:29 PM Interpretation: Performing Lab: Notes/Report: [facility] , Troponin I High Sensitivity 142.3 4.0-76.1 pg/m L RESULTS CALLED TO Jennie Alfaro RN CUT-OFF POINTS HAVE BEEN ESTABLISHED BASED ON THE FOURTH UNIVERSAL DEFINITION OF MYOCARDIAL INFARCTION. THE UPPER REFERENCE LIMIT (URL) OF TROPONIN, DEFINED THE 99TH PERCENTILE OF cTnI DISTRIBUTION IN A REFERENCE POPULATION, HAS BEEN CONFIRMED THE DECISION THRESHOLD FOR MA DIAGNOSIS. 99TH PERCENTILE = 76.2 PG/ML NOTE: HIGH-SENSITIVITY TROPONIN ASSAY IS NOT INTENDED TO BE USED IN ISOLATION BUT SHOULD BE INTERPRETED IN CONJUNCTION WITH OTHER DIAGNOSTIC AND CLINICAL INFORMATION. Performing Lab: see note ML - [facility] LB ECG 12 lead Reviewed date:01/16/2025 08:31:06 PM Interpretation: Performing Lab: Notes/Report: Source Facility: [place] [address] Electrocardiograph Report Signed Patient: FLYNN ARNETT MR#: [id number] : 1965 Acct:[id number] Age/Sex: 59 / M ADM Date: 01/15/25 Loc: MS [address]: Lauren Velasquez M.D. Ordering Physician: Lauren Velasquez M.D. Date of Service: 01/16/25 Procedure(s): ECG 12 lead Accession Number(s): [id number] cc: [facility] Test Date: 2025-01-16 Pat Name: FLYNN ARNETT Department: Room: [facility] Gender: Male Skein Tier: : 1965 Requested By: LAUREN VELASQUEZ Order Number: [id number] Reading MD: AMANDEEP MORAN M.D. Measurements Intervals Ransom Rate: 41 P: 150 ME: 216 QRS: 71 QRSD: 88 T: 84 QT: 530 QTc: 467 Interpretive Statements Sinus rhythm 2231 First degree AV block 4068 Nonspecific Twave abnormality 8304 Long QTc interval ARTIFACT IN LEAD(S) 9150 abnormal ECG Compared to ECG 01/16/2025 04:31:06 No significant changes Electronically Signed On 01-16-2025 20:26:15 EDT by AMANDEEP MORAN M.D. Dictated By: AMANDEEP MORAN Signed By: 01/16/252025 DD/ 2 TD/TT: Licensed Clinical Psychologist: ECG 12 lead Reviewed date:01/16/2025 08:31:06 PM Interpretation: Performing Lab: Notes/Report: Source Facility: [facility]-[address] [place] [address] [address] Electrocardiograph Report Signed Patient: FLYNN ARNETT MR#: [id number] : 1965 Acct:[id number] Age/Sex: 59 / M ADM Date: 01/15/25 Loc: MS 223-[address]: Lauren Velasquez M.D. Ordering Physician: Claudia Jean-Baptiste NP Date of Service: 01/16/25 Procedure(s): ECG 12 lead Accession Number(s): [id number] cc: [facility] Test Date: 2025-01-16 Pat Name: FLYNN ARNETT Department: Room: - Gender: Male Skein Tier: : 1965 Requested By: LAUREN VELASQUEZ Order Number: [id number] Reading MD: AMANDEEP MORAN M.D. Measurements Intervals Ransom Rate: 50 P: 76 ME: 278 QRS: 65 QRSD: 90 T: 96 QT: 482 QTc: 454 Interpretive Statements 1100 Sinus rhythm 2231 First degree AV block 4068 Nonspecific Twave abnormality 8304 Long QTc interval 9150 abnormal ECG Compared to ECG 01/15/2025 22:25:50 First degree AV block now present Electronically Signed On 01-16-2025 20:25:01 EDT by AMANDEEP MORAN M.D. Dictated By: AMANDEEP MORAN Signed By: 01/16/252024 DD/ 043 TD/TT: Licensed Clinical Psychologist: TSH W/ REFLEX FT4 Reviewed date:01/16/2025 08:21:29 PM Interpretation: Performing Lab: Notes/Report: [facility] , TSH W/ REFLEX FT4 2.861 0.358-3.740 uIU/mL Performing Lab: see note ML - [facility] LB Troponin I High Sensitivity Reviewed date:01/16/2025 08:21:29 PM Interpretation: Performing Lab: Notes/Report: [facility] , Troponin I High Sensitivity 186.7 4.0-76.1 pg/m L RESULTS CALLED TO KATH MANE RN @BY Neli Pierre at 0444 CUT-OFF POINTS HAVE BEEN ESTABLISHED BASED ON THE FOURTH UNIVERSAL DEFINITION OF MYOCARDIAL INFARCTION. THE UPPER REFERENCE LIMIT (URL) OF TROPONIN, DEFINED THE 99TH PERCENTILE OF cTnI DISTRIBUTION IN A REFERENCE POPULATION, HAS BEEN CONFIRMED THE DECISION THRESHOLD FOR MA DIAGNOSIS. 99TH PERCENTILE = 76.2 PG/ML NOTE: HIGH-SENSITIVITY TROPONIN ASSAY IS NOT INTENDED TO BE USED IN ISOLATION BUT SHOULD BE INTERPRETED IN CONJUNCTION WITH OTHER DIAGNOSTIC AND CLINICAL INFORMATION. Performing Lab: see note ML - [facility] LB Prothrombin Time INR Reviewed date:01/16/2025 08:21:29 PM Interpretation: Performing Lab: Notes/Report: [facility] , Prothrombin Time 10.9 9.0-11.6 sec INR 1.03 DESIRED INR: 2.0-3.0 CONDITIONS NOT LISTED BELOW 2.5-3.5 FOR PROSTHETIC HEART VALVE REPLACEMENT 2.5-3.5 RECURRENT THROMBOSIS Performing Lab: see note ML - [facility] LB PTT Reviewed date:01/16/2025 08:21:29 PM Interpretation: Performing Lab: Notes/Report: [facility] , Partial Thromboplastin Time 38.2 22.3-36.2 sec Performing Lab: see note ML - [facility] LB PROF 14(COMP METB) Reviewed date:01/16/2025 08:21:29 PM Interpretation: Performing Lab: Notes/Report: [facility] , Sodium 142 136-145 mmol/L Potassium 3.6 3.5-5.1 mmol/L Chloride 107 98-107 mmol/L Carbon Dioxide 25.2 21.0-32.0 mmol/L Anion Gap 13.4 Glucose 144 74-106 mg/dL Blood Urea Nitrogen 19.0 7.0-18.0 mg/dL Creatinine 1.40 0.70-1.30 mg/dL Estimated GFR ( Katty >60 >=60 mL/min/1.73m 2 Estimated GFR (Non- Liz 52 >=60 mL/min/1.73m 2 BUN Creatinine Ratio 13.6 Calcium 8.1 8.5-10.1 mg/dL Bilirubin Total 0.5 0.2-1.0 mg/dL Aspartate Amino Transferase 19 15-37 U/L Alanine Aminotransferase 31 16-63 U/L Alkaline Phosphatase 56 46-116 U/L Total Protein 5.5 6.4-8.2 g/dL Albumin Level 2.9 3.4-5.0 g/dL Globulin 2.6 Albumin Globulin Ratio 1.1 Performing Lab: see note - [facility] LB MAGNESIUM Reviewed date:01/16/2025 08:21:29 PM Interpretation: Performing Lab: Notes/Report: [facility] , Magnesium 1.8 1.8-2.4 mg/dL Performing Lab: see note ML - [facility] LB CBC AUTO DIFF Reviewed date:01/16/2025 08:21:29 PM Interpretation: Performing Lab: Notes/Report: [facility] , White Blood Count 6.9 4.0-11.0 10 3/uL Red Blood Count 4.80 4.70-6.10 10 6/uL Hemoglobin 13.4 14.0-18.0 g/dL Hematocrit 40.2 42.0-54.0 % Mean Corpuscular Volume 83.8 80.0-94.0 fL Mean Corpuscular Hemoglobin 27.9 25.9-34.0 pg Mean Corpuscular HGB Conc 33.3 29.9-35.2 g/dL Red Cell Distribution Width 14.6 11.0-15.0 % Platelet Count 185 150-450 10 3/uL Mean Platelet Volume 10.2 9.5-13.5 fL Neutrophils Percent Auto 43.3 43.0-75.0 % Lymphocytes Percent Auto 42.0 20.5-60.0 % Monocytes Percent Auto 9.7 1.7-12.0 % Eosinophils Percent Auto 4.1 0.9-7.0 % Basophils Percent Auto 0.6 0.2-2.0 % Immature Granulocytes Pct Auto 0.3 0.0-0.5 % Neutrophils Absolute Auto 3.0 1.4-6.5 10 3/uL Lymphocytes Absolute Auto 2.9 1.2-3.8 10 3/uL Monocytes Absolute Auto 0.7 0.3-0.8 10 3/uL Eosinophils Absolute Auto 0.3 0.0-0.7 10 3/uL Basophils Absolute Auto 0.0 0.0-0.1 10 3/uL Immature Granulocytes Abs Auto 0.02 0.00-0.03 10 3/uL Performing Lab: see note ML - [facility] LB Troponin I High Sensitivity Reviewed date:01/16/2025 08:21:29 PM Interpretation: Performing Lab: Notes/Report: [facility] , Troponin I High Sensitivity 305.6 4.0-76.1 pg/m L RESULTS CALLED TO JASPER NAVA RN @BY Neli Pierre at 2346 CUT-OFF POINTS HAVE BEEN ESTABLISHED BASED ON THE FOURTH UNIVERSAL DEFINITION OF MYOCARDIAL INFARCTION. THE UPPER REFERENCE LIMIT (URL) OF TROPONIN, DEFINED THE 99TH PERCENTILE OF cTnI DISTRIBUTION IN A REFERENCE POPULATION, HAS BEEN CONFIRMED THE DECISION THRESHOLD FOR MA DIAGNOSIS. 99TH PERCENTILE = 76.2 PG/ML NOTE: HIGH-SENSITIVITY TROPONIN ASSAY IS NOT INTENDED TO BE USED IN ISOLATION BUT SHOULD BE INTERPRETED IN CONJUNCTION WITH OTHER DIAGNOSTIC AND CLINICAL INFORMATION. Performing Lab: see note ML - [facility] LB ECG 12 lead Reviewed date:01/16/2025 08:25:14 PM Interpretation: Performing Lab: Notes/Report: Source Facility: [place] [address] Electrocardiograph Report Signed Patient: FLYNN ARNETT MR#: [id number] : 1965 Acct:[id number] Age/Sex: 59 / M ADM Date: 01/15/25 Loc: [place] 223-[address]: Lauren Velasquez M.D. Ordering Physician: Claudia Jean-Baptiste NP Date of Service: 01/15/25 Procedure(s): ECG 12 lead Accession Number(s): [id number] cc: [facility] Test Date: 2025-01-15 Pat Name: FLYNN ARNETT Department: Room: - Gender: Male Skein Tier: : 1965 Requested By: LAUREN VELASQUEZ Order Number: [id number] [place] MD: AMANDEEP MORAN M.D. Measurements Intervals Ransom Rate: 44 P: -28646 ME: -62794 QRS: 62 QRSD: 90 T: 77 QT: 498 QTc: 450 Interpretive Statements Junctional bradycardia 1470 with occasional supraventricular premature complexes abnormal ECG Compared to ECG 01/15/2025 18:13:59 ST (T wave) deviation no longer present Electronically Signed On 01-16-2025 20:22:03 EDT by AMANDEEP MORAN M.D. Dictated By: AMANDEEP MORAN Signed By: 01/16/252021 DD/ 24 TD/TT: Licensed Clinical Psychologist: Troponin I High Sensitivity Reviewed date:01/16/2025 08:21:29 PM Interpretation: Performing Lab: Notes/Report: [facility] , Troponin I High Sensitivity 317.2 4.0-76.1 pg/m L RESULTS CALLED TO ALEXANDRA RODRIGUEZ @BY Neli Pierre at 1914 CUT-OFF POINTS HAVE BEEN ESTABLISHED BASED ON THE FOURTH UNIVERSAL DEFINITION OF MYOCARDIAL INFARCTION. THE UPPER REFERENCE LIMIT (URL) OF TROPONIN, DEFINED THE 99TH PERCENTILE OF cTnI DISTRIBUTION IN A REFERENCE POPULATION, HAS BEEN CONFIRMED THE DECISION THRESHOLD FOR MA DIAGNOSIS. 99TH PERCENTILE = 76.2 PG/ML NOTE: HIGH-SENSITIVITY TROPONIN ASSAY IS NOT INTENDED TO BE USED IN ISOLATION BUT SHOULD BE INTERPRETED IN CONJUNCTION WITH OTHER DIAGNOSTIC AND CLINICAL INFORMATION. Performing Lab: see note ML - [facility] LB ECG 12 lead Reviewed date:01/16/2025 08:25:07 PM Interpretation: Performing Lab: Notes/Report: Source Facility: [facility] [place] [address] [place] [address] Electrocardiograph Report Signed Patient: FLYNN ARNETT MR#: [id number] : 1965 Acct:[id number] Age/Sex: 59 / M ADM Date: 01/15/25 Loc: MS 223-[address]: Lauren Velasquez M.D. Ordering Physician: Abdi Guerrero Date of Service: 01/15/25 Procedure(s): ECG 12 lead Accession Number(s): [id number] cc: [facility] Test Date: 2025-01-15 Pat Name: FLYNN ARNETT Department: Room: - Gender: Male Skein Tier: : 1965 Requested By: LAUREN VELASQUEZ Order Number: [id number] Reading MD: AMANDEEP MORAN M.D. Measurements Intervals Ransom Rate: 57 P: -05081 ME: -15094 QRS: 73 QRSD: 88 T: 73 QT: 412 QTc: 407 Interpretive Statements Junctional bradycardia 1470 with occasional supraventricular premature complexes [address] depression 9150 abnormal ECG Compared to ECG 01/15/2025 17:51:37 Ectopic atrial rhythm no longer present ST (T wave) deviation still present Electronically Signed On 01-16-2025 20:20:16 EDT by AMANDEEP MORAN M.D. Dictated By: AMANDEEP MORAN Signed By: 01/16/252019 DD/ 12 TD/TT: Licensed Clinical Psychologist: ECG 12 lead Reviewed date:01/16/2025 08:21:29 PM Interpretation: Performing Lab: Notes/Report: Source Facility: [place] [address] Electrocardiograph Report Signed Patient: FLYNN ARNETT MR#: [id number] : 1965 Acct:[id number] Age/Sex: 59 / M ADM Date: 01/15/25 Loc: ER Attending Dr: Ordering Physician: Abdi Guerrero Date of Service: 01/15/25 Procedure(s): ECG 12 lead Accession Number(s): [id number] cc: [facility] Test Date: 2025-01-15 Pat Name: FLYNN ARNETT Department: Room: - Gender: Male Skein Tier: : 1965 Requested By: 0919 Order Number: [id number] Reading MD: AMANDEEP MORAN M.D. Measurements Intervals Ransom Rate: 83 P: 270 ME: 184 QRS: -14 QRSD: 86 T: -27 QT: 350 QTc: 390 Interpretive Statements Ectopic atrial rhythm 2420 RSR (QR) in lead V1/V2, consistent with right ventricular conduction delay [address] depression 6220 Possible left atrial enlargement 9150 abnormal ECG Compared to ECG 01/15/2025 17:30:24 Atrial fibrillation no longer present ST (T wave) deviation still present Electronically Signed On 01-16-2025 7:38:06 EDT by AMANDEEP MORAN M.D. Dictated By: AMANDEEP MORAN Signed By: 01/16/25 0738 DD/ 175 TD/TT: Licensed Clinical Psychologist: ECG 12 lead Reviewed date:01/16/2025 08:21:29 PM Interpretation: Performing Lab: Notes/Report: Source Facility: [place] [address] [place] [address] Electrocardiograph Report Signed Patient: FLYNN ARNETT MR#: [id number] : 1965 Acct:[id number] Age/Sex: 59 / M ADM Date: 01/15/25 Loc: ER Attending Dr: Ordering Physician: Abdi Guerrero Date of Service: 01/15/25 Procedure(s): ECG 12 lead Accession Number(s): [id number] cc: [facility] Test Date: 2025-01-15 Pat Name: FLYNN ARNETT Department: Room: - Gender: Male Skein Tier: : 1965 Requested By: 0919 Order Number: [id number] Reading MD: AMANDEEP MORAN M.D. Measurements Intervals Ransom Rate: 142 P: -99157 ME: -22546 QRS: 4 QRSD: 80 T: -30 QT: 292 QTc: 374 Interpretive Statements 40089 Atrial fibrillation with rapid ventricular response 2420 RSR (QR) in lead V1/V2, consistent with right ventricular conduction delay [address] depression, probably digitalis effect 9150 abnormal ECG Compared to ECG 11/30/2023 11:47:05 Atrial fibrillation has replaced sinus rhythm Electronically Signed On 01-16-2025 7:37:05 EDT by AMANDEEP MORAN M.D. Dictated By: AMANDEEP MORAN Signed By: 01/16/25 0737 DD/ 173 TD/TT: Licensed Clinical Psychologist: THAD Licea, reflex to culture Reviewed date:01/16/2025 08:21:30 PM Interpretation: Performing Lab: Notes/Report: [facility] , Color Urine LT. YELLOW YELLOW Clarity Urine CLEAR CLEAR Specific [place] Urine 1.010 1.005-1.025 pH Urine 7.5 5.0-9.0 Protein Urine NEGATIVE NEG/TRACE mg/dL Glucose Urine UA >=1000 NEGATIVE mg/dL Bilirubin Urine NEGATIVE NEGATIVE Ketones Urine NEGATIVE NEGATIVE mg/dL Blood Urine NEGATIVE NEGATIVE Nitrite Urine NEGATIVE NEGATIVE Urobilinogen Urine 0.2 0.2-1.0 EU/dL Leukocyte Esterase Urine NEGATIVE NEGATIVE WBC Urine 0-2 NONE SEEN #/HPF RBC Urine 0-2 0-2 #/HPF Bacteria Urine NONE SEEN NONE SEEN #/HPF Mucus Urine NONE SEEN NONE SEEN Squamous Epithelial Cell Urine NONE SEEN NONE/RARE #/LPF Crystals Seen? None Seen None Seen #/HPF Cast Seen? NONE SEEN NONE SEEN #/LPF Performing Lab: see note ML - [facility] LB Troponin I High Sensitivity Reviewed date:01/16/2025 08:21:29 PM Interpretation: Performing Lab: Notes/Report: [facility] , Troponin I High Sensitivity 295.9 4.0-76.1 pg/m L RESULTS CALLED TO DR. GUERRERO AT 1835 CUT-OFF POINTS HAVE BEEN ESTABLISHED BASED ON THE FOURTH UNIVERSAL DEFINITION OF MYOCARDIAL INFARCTION. THE UPPER REFERENCE LIMIT (URL) OF TROPONIN, DEFINED THE 99TH PERCENTILE OF cTnI DISTRIBUTION IN A REFERENCE POPULATION, HAS BEEN CONFIRMED THE DECISION THRESHOLD FOR MA DIAGNOSIS. 99TH PERCENTILE = 76.2 PG/ML NOTE: HIGH-SENSITIVITY TROPONIN ASSAY IS NOT INTENDED TO BE USED IN ISOLATION BUT SHOULD BE INTERPRETED IN CONJUNCTION WITH OTHER DIAGNOSTIC AND CLINICAL INFORMATION. Performing Lab: see note ML - [facility] Prothrombin Time INR Reviewed date:01/16/2025 08:21:29 PM Interpretation: Performing Lab: Notes/Report: [facility] , Prothrombin Time 10.7 9.0-11.6 sec INR 1.01 DESIRED INR: 2.0-3.0 CONDITIONS NOT LISTED BELOW 2.5-3.5 FOR PROSTHETIC HEART VALVE REPLACEMENT 2.5-3.5 RECURRENT THROMBOSIS Performing Lab: see note ML - [facility] LB TSH Reviewed date:01/16/2025 08:21:29 PM Interpretation: Performing Lab: Notes/Report: [facility] , Thyroid Stimulating Hormone 2.626 0.358-3.740 u IU/mL Performing Lab: see note ML - [facility] LB PTT Reviewed date:01/16/2025 08:21:29 PM Interpretation: Performing Lab: Notes/Report: [facility] , Partial Thromboplastin Time 25.6 22.3-36.2 sec Performing Lab: see note ML - [facility] LB PROF 14(COMP METB) Reviewed date:01/16/2025 08:21:29 PM Interpretation: Performing Lab: Notes/Report: [facility] , Sodium 139 136-145 mmol/L Potassium 4.0 3.5-5.1 mmol/L Chloride 105 98-107 mmol/L Carbon Dioxide 20.7 21.0-32.0 mmol/L Anion Gap 17.3 Glucose 147 74-106 mg/dL Blood Urea Nitrogen 21.0 7.0-18.0 mg/dL Creatinine 1.55 0.70-1.30 mg/dL Estimated GFR ( Katty 56 >=60 mL/min/1.73m 2 Estimated GFR (Non- Liz 46 >=60 mL/min/1.73m 2 BUN Creatinine Ratio 13.5 Calcium 8.8 8.5-10.1 mg/dL Bilirubin Total 0.6 0.2-1.0 mg/dL Aspartate Amino Transferase 24 15-37 U/L Alanine Aminotransferase 34 16-63 U/L Alkaline Phosphatase 64 46-116 U/L Total Protein 6.5 6.4-8.2 g/dL Albumin Level 3.7 3.4-5.0 g/dL Globulin 2.8 Albumin Globulin Ratio 1.3 Performing Lab: see note ML - [facility] LB DRUG SCREEN RAPID (URINE) Reviewed date:01/16/2025 08:21:29 PM Interpretation: Performing Lab: Notes/Report: [facility] , Cannabinoid Screen Urine NEGATIVE NEGATIVE Phencyclidine Screen Urine NEGATIVE NEGATIVE Cocaine Screen Urine NEGATIVE NEGATIVE Methamphetamines Screen Urine NEGATIVE NEGATIVE Opiate Screen Urine NEGATIVE NEGATIVE Amphetamine Screen Urine NEGATIVE NEGATIVE Benzodiazepines Screen Urine NEGATIVE NEGATIVE Tricyclic Antidepressant Urine NEGATIVE NEGATIVE Methadone Screen Urine NEGATIVE NEGATIVE Barbiturates Screen Urine NEGATIVE NEGATIVE Oxycodone Screen Urine NEGATIVE NEGATIVE Buprenorphine Screen Urine NEGATIVE NEGATIVE DRUG CLASS TEST SYSTEM CUT-OFF CONCENTRATIONS ARE FOLLOWS: AMP (Amphetamine): 500 ng/mL BAR (Barbiturates): 200 ng/mL BZO (Benzodiazepines): 150 ng/mL BUP (Buprenorphine): 10 ng/mL SUNIL (Cocaine): 150 ng/mL mAMP (Methamphetamine): 500 ng/mL MTD (Methadone): 200 ng/mL OPI (Opiates): 100 ng/mL OXY (Oxycodone): 100 ng/mL PCP (Phencyclidine): 25 ng/mL THC (Cannabinoids): 50 ng/mL TCA (Trycyclic Antidepressants): 300 ng/mL Performing Lab: see note ML - [facility] LB D-DIMER Reviewed date:01/16/2025 08:21:29 PM Interpretation: Performing Lab: Notes/Report: [facility] , D Dimer 0.27 <=0.59 mg/L FEU Increases in D-Dimer concentration observed with thromboembolic events can be variable due to localization, size, and age of the thrombus. Therefore, a thromboembolic event cannot be diagnosed with certainty on the basis of the reference range. D-Dimers may also be elevated for a variety of disorders including advanced age, , coronary disease, cancer, liver disease, infection, inflammation, hematoma, DIC, trauma, post-surgery, diabetes, thrombolytic or anticoagulant therapy, stress, and generalized hospitalization. Performing Lab: see note ML - [facility] LB CBC AUTO DIFF Reviewed date:01/15/2025 06:15:17 PM Interpretation: Performing Lab: Notes/Report: [facility] , White Blood Count 11.0 4.0-11.0 10 3/uL Red Blood Count 5.64 4.70-6.10 10 6/uL Hemoglobin 15.7 14.0-18.0 g/dL Hematocrit 46.2 42.0-54.0 % Mean Corpuscular Volume 81.9 80.0-94.0 fL Mean Corpuscular Hemoglobin 27.8 25.9-34.0 pg Mean Corpuscular HGB Conc 34.0 29.9-35.2 g/dL Red Cell Distribution Width 14.3 11.0-15.0 % Platelet Count 241 150-450 10 3/uL Mean Platelet Volume 10.5 9.5-13.5 fL Neutrophils Percent Auto 59.3 43.0-75.0 % Lymphocytes Percent Auto 31.3 20.5-60.0 % Monocytes Percent Auto 6.3 1.7-12.0 % Eosinophils Percent Auto 2.4 0.9-7.0 % Basophils Percent Auto 0.4 0.2-2.0 % Immature Granulocytes Pct Auto 0.3 0.0-0.5 % Neutrophils Absolute Auto 6.6 1.4-6.5 10 3/uL Lymphocytes Absolute Auto 3.5 1.2-3.8 10 3/uL Monocytes Absolute Auto 0.7 0.3-0.8 10 3/uL Eosinophils Absolute Auto 0.3 0.0-0.7 10 3/uL Basophils Absolute Auto 0.0 0.0-0.1 10 3/uL Immature Granulocytes Abs Auto 0.03 0.00-0.03 10 3/uL Performing Lab: see note ML - [facility] LB BNP Reviewed date:01/16/2025 08:21:29 PM Interpretation: Performing Lab: Notes/Report: [facility] , NT Pro B Type Natriuretic Pept 543.0 <=900.0 pg/mL Performing Lab: see note [facility] LB PROF 14(COMP METB) Reviewed date:11/19/2024 01:49:48 PM Interpretation: Performing Lab: Notes/Report: [facility] , Sodium 141 136-145 mmol/L Potassium 4.2 3.5-5.1 mmol/L Chloride 107 98-107 mmol/L Carbon Dioxide 27.1 21.0-32.0 mmol/L Anion Gap 11.1 Glucose 112 74-106 mg/dL Blood Urea Nitrogen 17.0 7.0-18.0 mg/dL Creatinine 1.33 0.70-1.30 mg/dL Estimated GFR ( Katty >60 >=60 mL/min/1.73m 2 Estimated GFR (Non- Liz 55 >=60 mL/min/1.73m 2 BUN Creatinine Ratio 12.8 Calcium 8.7 8.5-10.1 mg/dL Bilirubin Total 0.5 0.2-1.0 mg/dL Aspartate Amino Transferase 18 15-37 U/L Alanine Aminotransferase 36 16-63 U/L Alkaline Phosphatase 63 46-116 U/L Total Protein 6.7 6.4-8.2 g/dL Albumin Level 3.7 3.4-5.0 g/dL Globulin 3.0 Albumin Globulin Ratio 1.2 Performing Lab: see note ML - [facility] LB LIPID PROFILE Reviewed date:11/19/2024 01:49:48 PM Interpretation: Performing Lab: Notes/Report: [facility] , Triglycerides 72 <=150 mg/dL Cholesterol 194 <=200 mg/dL HDL Cholesterol 35 40-60 mg/dL > or =60 mg/dl - LOW CARDIOVASCULAR RISK <40 mg/dl - HIGH CARDIOVASCULAR RISK LDL Cholesterol Calculated 145.0 <100 mg/dl OPTIMAL 100-129 mg/dl NEAR OR ABOVE OPTIMAL 130-159 mg/dl BORDERLINE HIGH 160-189 mg/dl HIGH >190 mg/dl VERY HIGH VLDL CHOLESTEROL 14.4 Chol HDL Ratio 5.5 3.3 - 4.4 LOW RISK 4.4 - 7.1 AVERAGE RISK 7.1 - 11.0 MODERATE RISK >11.0 HIGH RISK Performing Lab: see note ML - [facility] LB ECG 12 lead Reviewed date:02/16/2025 08:46:30 PM Interpretation: Performing Lab: Notes/Report: Source Facility: [facility]-[address] [place] [address] [place] [address] Electrocardiograph Report Signed Patient: FLYNN ARNETT MR#: [id number] : 1965 Acct:[id number] Age/Sex: 59 / M ADM Date: 02/16/25 Loc: ER Attending Dr: Ordering Physician: Jose Armando Rider M.D. Date of Service: 02/16/25 Procedure(s): ECG 12 lead Accession Number(s): [id number] cc: [facility] Test Date: 2025-02-16 Pat Name: FLYNN ARNETT Department: Room: - Gender: Male Skein Tier: : 1965 Requested By: 1030 Order Number: [id number] Reading MD: AMANDEEP MORAN M.D. Measurements Intervals Ransom Rate: 92 P: 245 ME: 232 QRS: 26 QRSD: 76 T: 36 QT: 340 QTc: 390 Interpretive Statements ATRIAL FIBRILLATION WITH RAPID VENTRICULAR RESPONSE [address] depression 4664 Twave abnormality, possible inferior ischemia 9150 abnormal ECG Compared to ECG 02/16/2025 15:25:33 No significant changes Electronically Signed On 02-16-2025 19:54:24 EDT by AMANDEEP MORAN M.D. Dictated By: AMANDEEP MORAN Signed By: 02/16/251953 DD/ 1602 TD/TT: Licensed Clinical Psychologist: Reason For Referral No Information Medications Medication SIG (Take, Route, Frequency, Duration) Notes Start Date End Date Status HYDROcodone-Acetaminophen 5-325 MG 1 tablet as needed Orally dx M54.2 every 6 hrs; Duration: 7 days 07/12/2025 Active Aspirin Adult Low Dose 81 MG 1 tablet Orally Once a day Active Vitamin C 500 MG 2 tablet Orally Once a day Active Eliquis 5 MG 1 tablet Orally bid 01/19/2025 Active Carvedilol 3.125 MG 1 tablet with food O rally Twice a day; Duration: 30 day(s) 01/19/2025 Active Farxiga 10 MG 1 tablet Orally Once a day; Duration: 30 day(s) 01/19/2025 Active Ezetimibe 10 MG TAKE 1 TABLET BY JL TH EVERY DAY FOR 90 DAYS; Duration: 90 days Active Furosemide 20 MG 1/2 tablet Orally On ce a day; Duration: 30 days 01/19/2025 Active Pantoprazole Sodium 40 MG TAKE 1 TABLET BY MOUTH EVERY DAY; Duration: 30 Active Lisinopril 10 MG 1 tablet Orally Once a day; Duration: 30 day(s) 01/19/2025 Active Simvastatin 20 MG TAKE 1 TABLET BY JL TH EVERY DAY; Duration: 90 Active Social History Tobacco Use: Social History Observation Description Date Details (start date - stop date) Never Smoker NA - NA Tobacco Use/Smoking Question Answer Notes Patient is a nonsmoker AUDIT-C (Standard) Question Answer Notes Did you have a drink containing alcohol in the p ast year? No Points 0 Interpretation Negative Problems Problem Type SNOMED Code ICD Code Onset Dates Problem Status W/U Status Risk Notes Problem Essential hypertensi on (65509162) Essential (primary) hypertension (I10) Active confirmed Problem Obesity (833590649) Obesity, unspecified (E66.9) Active confirmed Problem Mixed hyperlipidemia (188756048) Mixed hyperlipidemia (E78.2) Active confirmed Problem Hyperlipidemia (32282707) Hyperlipidemia, unspecified (E78.5) Active confirmed Problem Mitral valve disorde r (27328624) Nonrheumatic mitral (valve) insufficiency (I34.0) Active confirmed Problem Mitral valve disorde r (73236683) Nonrheumatic mitral (valve) prolapse (I34.1) Active confirmed Problem Sick sinus syndrome (31735757) Sick sinus syndrome (I49.5) Active confirmed Problem Heart failure (27683175) Heart failure, unspecified (I50.9) Active confirmed Problem Cardiomegaly (8029065) Cardiomeg elvi (I51.7) Active confirmed Problem Dilatation of aorta (06300115) Aortic ectasia, unspecified site (I77.819) Active confirmed Problem Congenital mitral insufficiency (60548994) 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) Active confirmed Problem Dyspnea (428142427) Other forms of dyspnea (R06.09) Active confirmed Problem Chest pain (85619674) Other ches t pain (R07.89) Active confirmed Problem Cardiac pacemaker in situ (293577583) Presence of cardiac pacemaker (Z95.0) Active confirmed Problem Atrial fibrillation (10810297) Atrial fibrillation (I48.91) Active confirmed Problem Gastroesophageal reflux disease (880384127) GERD (gastroesophageal reflux disease) (K21.9) Active confirmed Problem Atrial fibrillation (59225949) Atrial fibrillation with RVR (I48.91) Active confirmed Problem Acute non-ST segment elevation myocardial infarction (481777419) NSTEMI (non-ST elevated myocardial infarction) (I21.4) Active confirmed Problem Heart valve disease (988952) Valvular disease (I38) Active confirmed Problem Cardiomegaly (8531664) Biatrial enlargement (I51.7) Active confirmed Problem High blood pressure (73075281) High blood pressure (I10) Active confirmed Problem Gasping for breath (49472647) Gasping for breath (R06.89) Active confirmed Problem Otitis externa of le ft ear (7662726208080928) Left otitis externa (H60.92) Active confirmed Problem hypercholesterolemia (disorder) (94040433) Hypercholesteremia (E78.00) Active confirmed Problem Arthritis of right knee (1800142898764538) Arthritis of knee, right (M17.11) Active confirmed Problem Aneurysm of ascendin g aorta (disorder) (738082768) Aneurysm of the ascending aorta, without rupture (I71.21) Active confirmed Vital Signs Blood pressure diastolic 84 mm Hg 02/16/2025 Height 69 in 02/16/2025 Blood pressure systolic 110 mm Hg 02/16/2025 Weight 223.2 lbs 02/16/2025 BMI 32.96 kg/m2 02/16/2025 Encounters Encounter Location Date Provider Diagnosis [facility] [address] [place] [address] 08/18/2024 Monica Alessandro Leg pain M79.606 [facility] [address] [place] [address] 02/16/2025 Navdeep Hoy Essential (primary) hypertension I10 ; Cardiomegaly I51.7 ; Nonrheumatic mitral (valve) insufficiency I34.0 ; Atrial fibrillation I48.91 and Arthritis of knee, right M17.11 [facility] [address] [facility] [place] [address] 07/19/2024 Navdeep Hoy Arthritis of knee, right M17.11 [facility] [address] [place] [address] 08/17/2024 Navdeep Hoy [facility] [address] [facility] [place] [address] 09/15/2024 Navdeep Hoy Leg pain M79.606 [facility] [address] [facility] [place] [address] 09/15/2024 Navdeep Hoy Leg pain M79.606 [facility] [address] [facility] [place] [address] 09/21/2024 Navdeep Hoy [facility] [address] [facility] [place] [address] 10/13/2024 Navdeep Hoy Leg pain M79.606 [facility] [address] [facility] [place] [address] 11/08/2024 Navdeep Hoy Leg pain M79.606 [facility] [address] [facility] [place] [address] 12/12/2024 Navdeep Hoy Leg pain M79.606 [facility] [address] [facility] [place] [address] 01/12/2025 Navdeep Hoy Leg pain M79.606 [facility] [address] [facility] [place] [address] 01/19/2025 Navdeep Hoy [facility] [address] [facility] [place] [address] 02/10/2025 Navdeep Hoy [facility] [address] [facility] [place] [address] 02/10/2025 Navdeep Hoy Leg pain M79.606 [facility] [address] [facility] [place] [address] 03/13/2025 Navdeep Hoy Essential (primary) hypertension I10 [facility] [address] [facility] [place] [address] 04/11/2025 Navdeep Hoy Essential (primary) hypertension I10 [facility] [address] [place] [facility] [place] [address] 05/11/2025 Navdeep Hoy Essential (primary) hypertension I10 [facility] [address] [facility] [place] [address] 05/23/2025 Navdeep Hoy [facility] [address] [facility] [place] [address] 06/12/2025 Navdeep Hoy Essential (primary) hypertension I10 [facility] [address] [place] [facility] [place] [address] 07/11/2025 Navdeep Hoy Prediabetes R73.09 [facility] [address] [facility] [place] [address] 07/12/2025 Navdeep Hoy Essential (primary) hypertension I10 Assessments Encounter Date Diagnosis (ICD Code) Assessment Notes Treatment Notes Treatment Clinical Notes Section Notes 07/19/2024 Arthritis of knee, right (ICD-10 - M17.11) 09/15/2024 Leg pain (ICD-10 - M79.606) 09/15/2024 Leg pain (ICD-10 - M79.606) 10/13/2024 Leg pain (ICD-10 - M79.606) 11/08/2024 Leg pain (ICD-10 - M79.606) 12/12/2024 Leg pain (ICD-10 - M79.606) 01/12/2025 Leg pain (ICD-10 - M79.606) 02/10/2025 Leg pain (ICD-10 - M79.606) 03/13/2025 Essential (primary) hypertension (ICD-10 - I10) 04/11/2025 Essential (primary) hypertension (ICD-10 - I10) 05/11/2025 Essential (primary) hypertension (ICD-10 - I10) 06/12/2025 Essential (primary) hypertension (ICD-10 - I10) 07/11/2025 Prediabetes (ICD-10 - R73.09) 07/12/2025 Essential (primary) hypertension (ICD-10 - I10) 08/18/2024 Leg pain (ICD-10 - M79.606) CSA signed, OARRS reviewed 02/16/2025 Essential (primary) hypertension (ICD-10 - I10) good control 02/16/2025 Cardiomegaly (ICD-10 - I51.7) seeing cardioogy today 02/16/2025 Nonrheumatic mitral (valve) insufficiency (ICD-10 - I34.0) 02/16/2025 Atrial fibrillation (ICD-10 - I48.91) m ore palpitations lately 02/16/2025 Arthritis of knee, right (ICD-10 - M17.11) reviewe ed pain meds Plan Of Treatment Pending Test Test Name Order Date CMP (COMPLETE METABOLIC PANEL) 4 CMP (COMPLETE METABOLIC PANEL) 3 HEMOGLOBIN A1C (GLYCO) 01/15/2024 HEMOGLOBIN A1C (GLYCO) 02/16/2025 HEMOGLOBIN A1C (GLYCO) 01/07/2023 INSULIN, TOTAL 01/15/2024 LIPID PANEL (CHOL/TRIG/HDL/LDL) 01/15/20 24 LIPID PANEL (CHOL/TRIG/HDL/LDL) 01/08/20 23 CBC WITH DIFF 01/07/2023 CBC WITH DIFF 01/15/2024 PSA, PROSTATE-SPECIFIC ANTIGEN 4 PSA, PROSTATE-SPECIFIC ANTIGEN 3 ACUTE HEPATITIS PANEL 01/14/2023 BMP - Basic Metabolic Panel 07/11/2025 STOOL OCCULT BLOOD 01/07/2023 STOOL OCCULT BLOOD 01/15/2024 GLYCOHEMOGLOBIN A1C 07/11/2025 INSULIN 07/11/2025 THYROID PANEL (T4/TSH/FREE T3) 4 THYROID PANEL (T4/TSH/FREE T3) 3 PSA, SCREENING 02/16/2025 CMP (COMP MET M[place]ACK) w/eGFR CKD-EPI 2024 Insurance Providers Payer Name Payer Address Payer Phone Subscriber Number Group Number Insured Name Patient Relationship to Insured Coverage Start Date Coverage End Date [employer] [address] [place] [phone] [id number] Flynn Arnett Self - patient is the insured Medical (General) History Medical History History ICD Code Breast mass N63.0 COVID-19 U07.1 Mitral valve disease I05.9 GERD (gastroesophageal reflux disease) K 21.9 Murmur R01.1 Shingles B02.9 Gasping for breath R06.89 Surgical History Surgery Date(Month/Year) Mitral valve repair 05/27/2023 Cardiac Catheterization-02/12/2023 & Pacemaker 01/2025 Cardiac Ablation- Dr Lundy 05/31/2025 Hospitalization History Reason Date(Month/Year) Acute Respiratory Insufficiency-postoper ative-[facility] 05/27/2023
--- OUTSIDE RECORDS SUMMARY | 2025-07-19 08:06 | XMS_ITS | CCD ---
Author Organization [facility] Care Team Providers Care Sponge Press Operator Name Role Phone Lauren Velasquez Primary Care Physician Colt STUART Attending Unavailable MONICA BABIN Admitting Unavailable MONICA BABIN Attending Unavailable MONICA BBAIN Consulting Unavailable HOY ., DR AGUILAR Primary [...] DR AGUILAR Admitting Unavailable HOY ., DR AGULIAR Attending Unavailable HOY ., DR AGUILAR Consulting Unavailable HOY ., DR AGUILAR Primary Care Unavailable ELTAHAWY, DR SANCHEZ Admitting Unavailable ELTAHAWY, DR SANCHEZ Attending Unavailable ELTAHAWY, DR SANCHEZ Consulting Unavailable Monica Jackson Unavailable DARRYN LUNDY Referring Unavailable SAFI, LEATHA Referring Unavailable JASMEETDARRYN Paredes Referring Unavailable ELTAHAWY, ADONIS Referring Unavailable SAFI, LEATHA Referring Unavailable JASMEETDARRYN Paredes Referring Unavailable SAFI, LEATHA Referring Unavailable SAFI, LEATHA Referring Unavailable JASMEETDARRYN Paredes Referring Unavailable JASMEETDARRYN Paredes Referring Unavailable DARRYN LUNDY Attending Unavailable DARRYN LUNDY Referring Unavailable ELTAHAWY, ADONIS Attending Unavailable ELTAHAWY, ADONIS Attending Unavailable DARRYN LUNDY Attending Unavailable ELTAHAWY, ADONIS Attending Unavailable DARRYN LUNDY Referring Unavailable DARRYN LUNDY Admitting Unavailable JASMEETDARRYN Paredes Attending Unavailable JASMEETDARRYN Paredes Admitting Unavailable DARRYN LUNDY Attending Unavailable HOY, LAUREN Referring Unavailable SAFI, LEATHA Admitting Unavailable SAFI, LEATHA Attending Unavailable Medications Current Medications Medication Drug [...] Value Interpretation Reference Range Facility Office Visiton 07-11-2025 Follow-up visit [id number] Watson Arnett 1965 M Date Provider Department Center 07/11/2025 [facility]-DARRYN LUNDY [facility] Family History Problem Relation Age of Onset No Known Problems Mother No Known Problems Father Family Status - Relation Status Age at Mother Father Alive Level of Service:91611 NC OFFICE/OUTPATIENT ESTABLISHED LOW MDM 20 MIN Normal [facility] 36on 06-13-2025 36 patient called with BP and HR results.BP ranging from 104/89-128/87. HR ranging from 62-77 with one day of HR reaching 119.states he do not particularly feel better than last week with fatigue.states in the morning he's ok but throughout the day he does not feel well.will let know. Normal [facility] Telephoneon 06-13-2025 Telephone [id number] Watson Arnett 1965 M Date Provider Department Center 06/13/2025 April-[facility]I [facility] Family History Problem Relation Age of Onset No Known Problems Mother No Known Problems Father Family Status - Relation Status Age at Mother Father Alive Reason for Visit and Comments: BP and HR results [Other] Normal [facility] Telephoneon 06-09-2025 Telephone [id number] Watson Arnett 1965 M Date Provider Department Center 06/09/20251986-[facility] Family History Problem Relation Age of Onset No Known Problems Mother No Known Problems Father Family Status - Relation Status Age at Mother Father Alive Reason for Visit and Comments: week f/u post ablation [Other] Normal [facility] BILIRUBIN, DIRECTon 05-31-20 25 Magnesium [Mass/Vol] 0.1 mg/dL Normal 0-0.2 [facility] Comment on above: Performed By: #### L [id number] ####[facility] ([facility])[address] [place] [address] BILIRUBIN, TOTALon 5 Bilirubin [Mass/Vol] 0.6 mg/dL Normal 0.3-1.0 [facility] Comment on above: Performed By: #### L [id number] ####[facility] ([facility])[address] [place] [address] HEMOGLOBINon 05-31-2025 Hemoglobin (Bld) [Mass/Vol] 13.3 g/dL Normal 13.0-17.0 [facility] Comment on above: Performed By: #### L [id number] #### [facility] ([facility]) [address] [place] [address] HIGH SENSITIVITY TROPONIN Io n 05-31-2025 HS TROPONIN I (NG/L) 264 ng/L Critically high <20 [facility] Comment on above: Performed By: #### L [id number] ####[facility] ([facility])[address] [place] [address] HPon 05-31-2025 [facility] Electrophysiology Consult Note MS Cardiology [facility] Reason for visit: Device detected A-fib HPI: Flynnchai Arnett is a 59 y.o. year old with past medical history of HFpEF, hypertension, severe MR s/p mitral valve repair/annuloplasty with left atrial appendage clip, PFO closure hyperlipidemia AAA, DM 2 was transferred from [facility] to [facility] with underlying A-fib with RVR. He was placed on Cardizem which resulted in his heart rate dropping to 20 to 30 minutes and subsequent was transferred over to [facility] he underwent a cardiac [...] PMH: Past Medical History: Diagnosis Date Afib ([facility]) Aneurysm Angina pectoris, unstable ([facility]) BMI 36.0-36.9,adult Bradycardia Diabetes mellitus ([facility]) GERD (gastroesophageal reflux disease) Hyperlipidemia Hypertension Mitral valve prolapse 04/2023 NONRHEUMATIC Murmur Pacemaker Restless leg syndrome Sick sinus syndrome ([facility]) PSH: Past Surgical History: Procedure Laterality Date CARDIAC CATHETERIZATION Bilateral 04/2023 MITRAL VALVE REPAIR PATENT FORAMEN OVALE CLOSURE SH: Social Drivers of Health Tobacco Use: Low Risk (05/31/2025) Patient History Smoking Tobacco Use: Never Smokeless Tobacco Use: Never Passive Exposure: Not on file Alcohol Use: Not on file Financial Resource Strain: Low Risk (01/16/2025) Overall Financial Resource Strain (CARDI) Difficulty of Paying Living Expenses: Not hard [...] Year: No Utilities: Not At Risk (01/16/2025) [facility] Utilities Threatened with loss of utilities: No Health Literacy: Not on file Allergies: No Known Allergies Weight: 102kg Visit Vitals BP (!) 137/94 Pulse 95 Temp 36.1 ???C (97 ???F) (Temporal) Resp 18 Ht 1.753 m (5' 9 ) Wt 99.8 kg (220 lb 0.3 oz) SpO2 99% BMI 32.49 kg/m??? Smoking Status Never BSA 2.2 m??? Meds: No current facility-administered medications on file prior to encounter. Current Outpatient Medications on File Prior to Encounter Medication Sig Dispense Refill apixaban (Eliquis) 5 mg tablet Take 1 tablet (5 mg) by mouth two times daily. 180 tablet 3 aspirin 81 mg EC tablet Take 81 mg by mouth in the morning. dapagliflozin propanediol (Farxiga) 10 mg Take 1 tablet (10 mg) by mouth in the morning. 90 tablet 3 dilTIAZem CD (Cardizem CD) 120 mg 24 hr capsule Take 1 capsule (120 mg) by mouth once daily as directed. 90 capsule 3 HYDROcodone-acetaminop hen ([place]) 5-325 mg tablet Take 1 tablet by [...] evening meal. (Patient not taking: Reported on 05/08/2025) 180 tablet 3 ezetimibe (Zetia) 10 mg tablet Take 1 tablet (10 mg) by mouth in the morning. (Patient not taking: Reported on 03/07/2025) 30 tablet 0 furosemide (Lasix) 20 mg tablet Take 1/2 tablet daily (Patient not taking: Reported on 05/08/2025) 90 tablet 3 ROS: Review of Systems Constitutional: Negative. Neurological: Positive for dizziness. Physical Exam: Constitutional General Appearance: well-nourished, well-developed, appears stated age Level of Distress: comfortable Eyes DRU Neck Neck: supple, trachea midline Carotid Arteries: bilateral normal upstroke, no bruits Jugular Veins: normal jugular venous p (more content not included)... Normal [facility] LACTATE DEHYDROGENASEon 05-06 LACTATE DEHYDROGENASE (U/L) IN SER/PLAS BY LAC->PYR RXN 171 U/L Normal 140-271 [facility] Comment on above: Performed By: #### L [id number] #### [facility] ([facility]) [address] [place] [address] NURSNOTEon 05-31-[address] Azul at [facility]. Stated pt could be discharged to home. Normal [facility] NURSNOTE Discharge instructio ns discussed with pt and pt's . Stated understanding. Normal [facility] NURSNOTE Patient to preop bay _6_. Patient instructed to remove all clothing and how to use CHG wipes. Patient states understanding. No questions or concerns about pre op. [facility] POCT GLUCOSE METER UNSOLICIT ED RESULTSon 05-31-2025 Glucose [Mass/Vol] 110 mg/dL High 70-105 [facility] Comment on above: Order Comment: Waive d Testing in the ED is performed under the ED CLIA certificate #[id number]. Result Comment: ngro shane Performed By: #### L [id number] ####[facility] ([facility])[address] [place] [address] PROTIME-INRon 05-31-2025 INR IN PPP BY COAGULATION ASSAY 1.03 Normal 0.90-1.10 [facility] Comment on above: Result Comment: ACCC P RECOMMENDED INR FOR WARFARIN THERAPY CONDITION INR [...] CHEST 1995;108:231S-246S. Performed By: #### L [id number] ####[facility] ([facility])[address] [place] [address] PROTHROMBIN TIME (PT) IN PPP BY COAGULATION ASSAY 13.5 Seconds Normal 12.3-14.8 [facility] Comment on above: Performed By: #### L [id number] ####[facility] ([facility])[address] [place] [address] Prep for Procedureon 025 Prep for Procedure [id number] Watson Arnett 1965 M Date Provider Department Center 05/31/20251986-[facility] Family History Problem Relation Age of Onset No Known Problems Mother No Known Problems Father Family Status - Relation Status Age at Mother Father Alive Normal [facility] 36on 05-23-2025 36 Order entered and faxed to [facility] to be done 1 month s/p afib ablation on 05/31/2025. Normal [facility] 36 Spoke with patient maria de jesus nd got him scheduled for follow up afib ablation and repeat echo in 1 month. Would you like limited echo? Or another complete? Normal [facility] 36 Regarding echo resul t from 05/23/2025: Adonis Jacob MD to [place] 05/23/25 12:20 PM His EF has dropped from normal to 40% or so (nml 55-60%). This may be related to the AF and I see he sees Dr Lundy and has an ablation scheduled. Please let him know we will repeat an echo a month or so after the ablation and if the EF has not improved, we may need additional testing Thanks. Normal [facility] Orders Onlyon 05-23-2025 Orders Only [id number] Watson Arnett [address] [facility] Provider Department Center 05/23/2025 [id number], HISTORICAL CARD [facility] Family History Problem Relation Age of Onset No Known Problems Mother No Known Problems Father Family Status - Relation Status Age at Mother Father Alive Normal [facility] Orders Onlyon 05-19-2025 Orders Only [id number] Watson Arnett 1965 [facility] Department Center 05/19/2025 DARRYN FATIMA [facility] CARD [facility] Family History Problem Relation Age of Onset No Known Problems Mother No Known Problems Father Family Status - Relation Status Age at Mother Father Alive [facility] POCT GLUCOSE METER UNSOLICIT ED RESULTSon 05-10-2025 Glucose [Mass/Vol] 124 mg/dL High 70-105 [facility] Comment on above: Order Comment: Waive d Testing in the ED is performed under the ED CLIA certificate #[id number]. Result Comment: ltol les Performed By: #### L [id number] #### [facility] ([facility]) [address] [place] [address] Prep for Procedureon 025 Prep for Procedure [id number] Watson Arnett M 1965 M Date Provider Department Center 03/30/20251986-MINDI VELASCO C [facility]ASC [facility] Family History Problem Relation Age of Onset No Known Problems Mother No Known Problems Father Family Status - Relation Status Age at Mother Father Alive Normal [facility] Prep for Procedureon 025 Prep for Procedure [id number] Watson Arnett M 1965 M Date Provider Department Center 03/24/20251986-MINDI VELASCO [facility] Family History Problem Relation Age of Onset No Known Problems Mother No Known Problems Father Family Status - Relation Status Age at Mother Father Alive [facility] Follow-Upon 03-07-2025 Follow-Up [id number] Watson Arnett addison 1965 Provider Department Center 03/07/2025 DARRYN FATIMA CARD [facility] Family History Problem Relation Age of Onset No Known Problems Mother No Known Problems Father Family Status - Relation Status Age at Mother Father Alive Level of Service:38050 NC OFFICE/OUTPATIENT NEW MODERATE MDM 45 MINUTES [facility] 02-22-2025 36 Patient called back very upset that his call from Tuesday 02/20 was not returned. I advised him of medication changes and they were sent into his pharmacy. He has follow up apt with Dr. Lundy on 03/07/2025. Patient verbalized understanding. [facility] 02-21-2025 36 We can start him on diltiazem 120mg daily to try to help control his HR. While this can also affect BP, would like to change carvedilol to Toprol 25mg daily to try to help prevent low BP. He should monitor his BP and HR 2 hours after medications and bring in readings to his next visit. [facility] Orders Only02-17-2025 Orders Only [id number] David,Watson jaime 1965 Provider Department [place] 02/17/2025 DARRYN FATIMA [facility] C[facility] Family History Problem Relation Age of Onset No Known Problems Mother No Known Problems Father Family Status - Relation Status Age at Mother Father [facility] 02-03-2025 36 Patient informed. I also told him he could take an extra dose of carvedilol (3.125mg) if he felt his heart race again. Says about 1 hour after he spoke with me yesterday he started to feel fine again. Has felt fine today also. Advised patient to go to the ED if symptoms worsen. He verbalized understanding. [facility] 02-02-2025 36 Patient called to horace valente [...] report to the ED. Any suggestions? Thanks. [facility] Office Visiton 01-31-2025 Follow-up visit [id number] Watson Arnett 1965 M Date Provider Department Center 01/31/2025 271-ADONIS JACOB CARD [facility] Family History Problem Relation Age of Onset No Known Problems Mother No Known Problems Father Family Status - Relation Status Age at Mother Father Level of Service:53311 NC OFFICE/OUTPATIENT ESTABLISHED MOD MDM 30 MIN [facility] 30on 01-18-2025 30 Daily Case [...] PT Recommendations: OT Recommendations: New Consults: Normal [facility] BASIC METABOLIC PANELon 01-03 Anion gap [Moles/Vol] 10 mmol/L Normal - [facility] Comment on above: Performed By: #### L [id number] ####[facility] ([facility])[address] [place] [address] Calcium [Mass/Vol] 8.2 mg/dL Low 8.6-10.3 [facility] Comment on above: Performed By: #### L [id number] ####[facility] ([facility])[address] [place] [address] Chloride [Moles/Vol] 106 mmol/L Normal 98-107 [facility] Comment on above: Performed By: #### L [id number] ####[facility] ([facility])[address] [place] [address] CO2 [Moles/Vol] 24 mmol/L Normal 21-31 [facility] Comment on above: Performed By: #### L [id number] ####[facility] ([facility])[address] [place] [address] Creatinine [Mass/Vol] 1.24 mg/dL Normal 0.60-1.30 [facility] Comment on above: Performed By: #### L [id number] ####[facility] ([facility] [place] [address] GLOMERULAR FILTRATION RATE ML/MIN/1.73 SQ M.PREDICTED 50.8 mL/min/1.73m*2 Low >60.0 [facility] Comment on above: Result Comment: The [facility]???s estimated glomerular filtration rate (eGFR) will [...] of individuals. Performed By: #### L [id number] ####[facility] ([facility])[address] [address] Glucose [Mass/Vol] 128 mg/dL High 70-100 [facility] Comment on above: Performed By: #### L [id number] ####[facility] ([facility])[address] [address] Potassium [Moles/Vol] 4.0 mmol/L Normal 3.5-5.1 [facility] Comment on above: Performed By: #### L [id number] ####[facility] ([facility])[address] [place] [address] Sodium [Moles/Vol] 136 mmol/L Normal 136-145 [facility] Comment on above: Performed By: #### L [id number] ####[facility] ([facility])[address] [place] [address] Urea nitrogen [Mass/Vol] 16 mg/dL Normal 7-25 [facility] Comment on above: Performed By: #### L [id number] ####[facility] ([facility])[address] [place] [address] UREA NITROGEN/CREATININE (MASS RATIO) IN SER/PLAS 12.9 Normal [facility] Comment on above: Performed By: #### L [id number] ####[facility] ([facility])[address] [place] [address] CBC WITH AUTO DIFFERENTIALon 01-18-2025 Basophils (Bld) [#/Vol] 0.03 10*3/uL Normal 0.00-0.20 [facility] Comment on above: Performed By: #### L [id number] #### [facility] ([facility]) [address] [place] [address] Basophils/100 WBC (Bld) 0.4 % Normal 0.0-1.0 [facility] Comment on above: Performed By: #### L [id number] #### [facility] ([facility]) [address] [address] Eosinophils (Bld) [#/Vol] 0.20 10*3/uL Normal 0.00-0.50 [facility] Comment on above: Performed By: #### L [id number] #### [facility] ([facility]) [address] [place] [address] Eosinophils/100 WBC (Bld) 2.6 % Normal 0.0-6.0 [facility] Comment on above: Performed By: #### L [id number] #### [facility] ([facility]) [address] [address] Erythrocyte distribution width (RBC) [Ratio] 14.6 % Normal 11.5-15.0 [facility] Comment on above: Performed By: #### L [id number] #### [facility] ([facility]) [address] [place] [address] ERYTHROCYTE MEAN CORPUSCULAR HEMOGLOBIN CONCENTRATION (G/DL) BY AUTOMATED 33.3 g/dL Normal 32.0-35.0 [facility] Comment on above: Performed By: #### L [id number] #### [facility] ([facility]) [address] [address] Hematocrit (Bld) [Volume fraction] 45.0 % Normal 36.0-50.0 [facility] Comment on above: Performed By: #### L [id number] #### [facility] ([facility]) [address] [address] Hemoglobin (Bld) [Mass/Vol] 15.0 g/dL Normal 12.0-17.0 [facility] Comment on above: Performed By: #### L [id number] #### [facility] ([facility]) [address] [address] Immature granulocytes (Bld) [#/Vol] 0.01 10*3/uL Normal 0.00-0.20 [facility] Comment on above: Performed By: #### L [id number] #### [facility] ([facility]) [address] [address] Immature granulocytes/100 WBC (Bld) 0.1 % Normal 0.0-1.0 [facility] Comment on above: Performed By: #### L [id number] #### [facility] ([facility]) [address] [place] [address] Lymphocytes (Bld) [#/Vol] 1.73 10*3/uL Normal 1.20-4.00 [facility] Comment on above: Performed By: #### L [id number] #### [facility] (BEAKER) [address] [place] [address] Lymphocytes/100 WBC (Bld) 22.7 % Normal 20.0-45.0 [facility] Comment on above: Performed By: #### L [id number] #### [facility] ([facility]) [address] [address] MCH (RBC) [Entitic mass] 27.1 pg Normal 27.0-33.0 [facility] Comment on above: Performed By: #### L [id number] #### [facility] ([facility]) [address] [address] MCV (RBC) [Entitic vol] 81.2 fL Low 82.0-98.0 [facility] Comment on above: Performed By: #### L [id number] #### [facility] ([facility] [address] [place] [address] Monocytes (Bld) [#/Vol] 0.71 10*3/uL Normal 0.10-1.00 [facility] Comment on above: Performed By: #### L [id number] #### [facility] ([facility] [address] [place] [address] Monocytes/100 WBC (Bld) 9.3 % Normal 5.0-12.0 [facility] Comment on above: Performed By: #### L [id number] #### [facility] ([facility]) [address] [place] [address] Neutrophils (Bld) [#/Vol] 4.95 10*3/uL Normal 1.60-7.60 [facility] Comment on above: Performed By: #### L [id number] #### [facility] ([facility]) [address] [place] [address] Neutrophils/100 WBC (Bld) 64.9 % Normal 40.0-72.0 [facility] Comment on above: Performed By: #### L [id number] #### [facility] ([facility]) [address] [place] [address] NRBC (PER 100 WBCS) BY AUTOMATED COUNT 0.0 % Normal 0 [facility] Comment on above: Performed By: #### L [id number] #### [facility] ([facility]) [address] [address] PLATELETS (10*3/UL) IN BLOOD AUTOMATED COUNT 219 10*3/uL Normal 150-400 [facility] Comment on above: Performed By: #### L [id number] #### [facility] ([facility]) [address] [place] [address] RBC (Bld) [#/Vol] 5.54 10*6/uL Normal 3.80-5.70 [facility] Comment on above: Performed By: #### L [id number] #### [facility] ([facility]) [address] [place] [address] WBC (Bld) [#/Vol] 7.63 10*3/uL Normal 4.00-10.60 [facility] Comment on above: Performed By: #### L [id number] #### [facility] ([facility]) [address] [place] [address] DSon 01-18-2025 DS -- Attestation signed by Leatha Caceres MD at 01/20/2025 12:31 PM Patient was seen and examined with the resident on the same date of service, I discussed the findings and therapeutic plan with the resident/fellow, I agree with the documentation, assessment and plan as above except for any edits/updates below. Leatha Caceres MD hospital intern Pulmonary and critical care department [id number] Admission Admitted 01/16/2025 for Bradycardia Discharge Diagnosis Primary Symptomatic severe sinus bradycardia Shock, cardiogenic from bradycardia arrhythmias Unstable angina Tachybrady syndrome Secondary Heart failure with preserved ejection fraction Mitral valve prolapse with regurgitation s/p mitral valve repair Essential hypertension Smi-wbdmyel-gnyefcaho type 2 diabetes mellitus Discharge Disposition Home [...] hen 5-325 mg tablet Commonly known as: [place] lisinopril 10 mg tablet Take 1 tablet (10 mg) by mouth in the morning. pantoprazole 40 mg EC tablet Commonly known as: ProtoNix simvastatin 20 mg tablet Commonly known as: Zocor Where to Get Your Medications These medications were sent to [facility] - [place], [place] - [address], [facility] [address] apixaban 5 mg tablet Activity Normal activity as tolerated Diet Patient currently has no discharge diet orders Allergies Patient has no known allergies. Hospital Course Flynn Arnett is a 59 y.o. adult with a past medical history of heart failure with preserved ejection fraction, hypertension, mitral valve prolapse with regurgitation s/p mitral valve repair, hyperlipidemia, zcz-rorlgwe-gnungzliy type 2 diabetes, AAA who presents as a transfer from [facility]. Patient developed left lower chest pain yesterday, [...] had racing heartbeat. He went to the [facility] with these complaints, where reportedly his heart [...] to 30 bpm. He was transferred to [facility] for higher level of care. At [facility], his heart rate was [...] discharge, libia (more content not included)... Normal [facility] Letter (Out)on 01-18-2025 Letter (Out) [id number] Watson Arnett 1965 M Date Provider Department Center 01/18/2025 [id number], GENERIC PRO*INIT None Family History Problem Relation Age of Onset No Known Problems Mother No Known Problems Father Family Status - Relation Status Age at Mother Father Normal [facility] MAGNESIUMon 01-18-2025 Magnesium [Mass/Vol] 2.0 mg/dL Normal 1.9-2.7 [facility] Comment on above: Performed By: #### L [id number] #### [facility] ([facility] [address] [place] [address] PHOSPHORUSon 01-18-2025 Magnesium [Mass/Vol] 3.8 mg/dL Normal 2.5-5.0 [facility] Comment on above: Performed By: #### L [id number] ####[facility] ([facility])[address] [place] [address] POCT GLUCOSE METER UNSOLICIT ED RESULTSon 01-18-2025 Glucose [Mass/Vol] 168 mg/dL High 70-105 [facility] Comment on above: Order Comment: Waive d Testing in the ED is performed under the ED CLIA certificate #[id number]. Result Comment: [email or web address] Performed By: #### L [id number] ####[facility] ([facility])[address] [place] [address] 30on 01-17-2025 30 Daily Case Managemen t Update Multidisciplinary rounds have been completed. Barriers to Discharge: 01/17- patient with cardiac history, TVAR 2 yeara ago, was at [place] with CP, was in afib RVR, had episode of significant bradycardia (20s), HR ultimately came up to 40s, plan is for cath and possible pacer today. Plan is home no needs. cb Diet: Dietary Orders (From admission, onward) Start Ordered 01/17/25 0001 Diet NPO Diet effective midnight Comments: Sips with medications Question: Reason for NPO: Answer: Operation/Procedure 01/16/25 9685 Physician Expected Discharge Date: 01/21/2025 Discharge Delays: PT Six Click Score: OT Six Click Score: PT Recommendations: OT Recommendations: New Consults: Normal [facility] BASIC METABOLIC PANELon 01-03 Anion gap [Moles/Vol] 9 mmol/L Normal 7-20 [facility] Comment on above: Performed By: #### L [id number] ####[facility] ([facility])[address] [place] [address] Calcium [Mass/Vol] 8.2 mg/dL Low 8.6-10.3 [facility] Comment on above: Performed By: #### L [id number] ####[facility] ([facility])[address] [place] [address] Chloride [Moles/Vol] 109 mmol/L High 98-107 [facility] Comment on above: Performed By: #### L [id number] ####[facility] ([facility])[address] [place] [address] CO2 [Moles/Vol] 24 mmol/L Normal 21-31 [facility] Comment on above: Performed By: #### L [id number] ####[facility] ([facility])[address] [place] [address] Creatinine [Mass/Vol] 1.24 mg/dL Normal 0.60-1.30 [facility] Comment on above: Performed By: #### L [id number] ####[facility] ([facility])[address] [address] GLOMERULAR FILTRATION RATE ML/MIN/1.73 SQ M.PREDICTED 50.8 mL/min/1.73m*2 Low >60.0 [facility] Comment on above: Result Comment: [facility]???s estimated glomerular filtration rate (eGFR) will [...] of individuals. Performed By: #### L [id number] ####[facility] ([facility])[address] [place] [address] Glucose [Mass/Vol] 120 mg/dL High 70-100 [facility] Comment on above: Performed By: #### L [id number] ####[facility] ([facility])[address] [place] [address] Potassium [Moles/Vol] 4.1 mmol/L Normal 3.5-5.1 [facility] Comment on above: Performed By: #### L [id number] ####[facility] ([facility])[address] [place] [address] Sodium [Moles/Vol] 138 mmol/L Normal 136-145 [facility] Comment on above: Performed By: #### L [id number] ####[facility] ([facility])[address] [place] [address] Urea nitrogen [Mass/Vol] 15 mg/dL Normal 7-25 [facility] Comment on above: Performed By: #### L [id number] ####[facility] ([facility])[address] [place] [address] UREA NITROGEN/CREATININE (MASS RATIO) IN SER/PLAS 12.1 Normal [facility] Comment on above: Performed By: #### L [id number] ####[facility] ([facility])[address] [place] [address] CBC WITH AUTO DIFFERENTIALon 01-17-2025 Basophils (Bld) [#/Vol] 0.03 10*3/uL Normal 0.00-0.20 [facility] Comment on above: Performed By: #### L [id number] #### [facility] ([facility]) [address] [place] [address] Basophils/100 WBC (Bld) 0.4 % Normal 0.0-1.0 [facility] Comment on above: Performed By: #### L [id number] #### [facility] ([facility]) [address] [place] [address] Eosinophils (Bld) [#/Vol] 0.26 10*3/uL Normal 0.00-0.50 [facility] Comment on above: Performed By: #### L [id number] #### [facility] ([facility]) [address] [place] [address] Eosinophils/100 WBC (Bld) 3.8 % Normal 0.0-6.0 [facility] Comment on above: Performed By: #### L [id number] #### [facility] ([facility]) [address] [place] [address] Erythrocyte distribution width (RBC) [Ratio] 14.6 % Normal 11.5-15.0 [facility] Comment on above: Performed By: #### L [id number] #### [facility] ([facility]) [address] [place] [address] ERYTHROCYTE MEAN CORPUSCULAR HEMOGLOBIN CONCENTRATION (G/DL) BY AUTOMATED 31.7 g/dL Low 32.0-35.0 [facility] Comment on above: Performed By: #### L [id number] #### [facility] ([facility]) [address] [place] [address] Hematocrit (Bld) [Volume fraction] 43.9 % Normal 36.0-50.0 [facility] Comment on above: Performed By: #### L [id number] #### [facility] ([facility]) [address] [place] [address] Hemoglobin (Bld) [Mass/Vol] 13.9 g/dL Normal 12.0-17.0 [facility] Comment on above: Performed By: #### L [id number] #### [facility] ([facility]) [address] [place] [address] Immature granulocytes (Bld) [#/Vol] 0.02 10*3/uL Normal 0.00-0.20 [facility] Comment on above: Performed By: #### L [id number] #### [facility] ([facility]) [address] [place] [address] Immature granulocytes/100 WBC (Bld) 0.3 % Normal 0.0-1.0 [facility] Comment on above: Performed By: #### L [id number] #### [facility] ([facility]) [address] [place] [address] Lymphocytes (Bld) [#/Vol] 1.91 10*3/uL Normal 1.20-4.00 [facility] Comment on above: Performed By: #### L [id number] #### [facility] ([facility]) [address] [place] [address] Lymphocytes/100 WBC (Bld) 28.2 % Normal 20.0-45.0 [facility] Comment on above: Performed By: #### L [id number] #### [facility] ([facility]) [address] [place] [address] MCH (RBC) [Entitic mass] 27.0 pg Normal 27.0-33.0 [facility] Comment on above: Performed By: #### L [id number] #### [facility] ([facility]) [address] [place] [address] MCV (RBC) [Entitic vol] 85.4 fL Normal 82.0-98.0 [facility] Comment on above: Performed By: #### L [id number] #### [facility] ([facility]) [address] [place] [address] Monocytes (Bld) [#/Vol] 0.54 10*3/uL Normal 0.10-1.00 [facility] Comment on above: Performed By: #### L [id number] #### [facility] ([facility]) [address] [place] [address] Monocytes/100 WBC (Bld) 8.0 % Normal 5.0-12.0 [facility] Comment on above: Performed By: #### L [id number] #### [facility] ([facility]) [address] [place] [address] Neutrophils (Bld) [#/Vol] 4.01 10*3/uL Normal 1.60-7.60 [facility] Comment on above: Performed By: #### L [id number] #### [facility] ([facility]) [address] [place] [address] Neutrophils/100 WBC (Bld) 59.3 % Normal 40.0-72.0 [facility] Comment on above: Performed By: #### L [id number] #### [facility] ([facility]) [address] [place] [address] NRBC (PER 100 WBCS) BY AUTOMATED COUNT 0.0 % Normal 0 [facility] Comment on above: Performed By: #### L [id number] #### [facility] ([facility]) [address] [place] [address] PLATELETS (10*3/UL) IN BLOOD AUTOMATED COUNT 198 10*3/uL Normal 150-400 [facility] Comment on above: Performed By: #### L [id number] #### [facility] ([facility]) [address] [place] [address] RBC (Bld) [#/Vol] 5.14 10*6/uL Normal 3.80-5.70 [facility] Comment on above: Performed By: #### L [id number] #### [facility] ([facility]) [address] [place] [address] WBC (Bld) [#/Vol] 6.77 10*3/uL Normal 4.00-10.60 [facility] Comment on above: Performed By: #### L [id number] #### [facility] ([facility]) [address] [address] HPon 01-17-2025 HP H&P reviewed. The patient was examined and there are no changes to the H&P. Normal [facility] MAGNESIUMon 01-17-2025 Magnesium [Mass/Vol] 2.0 mg/dL Normal 1.9-2.7 [facility] Comment on above: Performed By: #### L [id number] ####[facility] ([facility])[address] [address] PHOSPHORUSon 01-17-2025 Magnesium [Mass/Vol] 3.4 mg/dL Normal 2.5-5.0 [facility] Comment on above: Performed By: #### L [id number] ####[facility] ([facility])[address] [place] [address] POCT GLUCOSE METER UNSOLICIT ED RESULTSon 01-17-2025 Glucose [Mass/Vol] 153 mg/dL High 70-105 [facility] Comment on above: Order Comment: Waive d Testing in the ED is performed under the ED CLIA certificate #[id number]. Result Comment: [email or web address] Performed By: #### L [id number] #### [facility] ([facility]) [address] [place] [address] Glucose [Mass/Vol] 89 mg/dL Normal 70-105 [facility] Comment on above: Order Comment: Waive d Testing in the ED is performed under the ED CLIA certificate #[id number]. Result Comment: [email or web address] Performed By: #### L [id number] #### [facility] ([facility]) [address] [place] [address] 30on 01-16-2025 30 The patient is Moderately [...] emotional support, repositioning, music therapy, distraction. Normal [facility] BLOOD CULTUREon 01-16-2025 Bacteria identified Cx Nom (Bld) No growth at 5 days Normal [facility] Comment on above: Performed By: #### L [id number] ####[facility] ([facility])[address] [place] [address] Order Comment: From a different site than #1. CBC WITH AUTO DIFFERENTIALon 01-16-2025 Basophils (Bld) [#/Vol] 0.02 10*3/uL Normal 0.00-0.20 [facility] Comment on above: Performed By: #### L [id number] ####[facility] ([facility])[address] [place] [address] Basophils/100 WBC (Bld) 0.3 % Normal 0.0-1.0 [facility] Comment on above: Performed By: #### L [id number] ####[facility] ([facility])[address] [place] [address] Eosinophils (Bld) [#/Vol] 0.23 10*3/uL Normal 0.00-0.50 [facility] Comment on above: Performed By: #### L [id number] ####[facility] ([facility])[address] [place] [address] Eosinophils/100 WBC (Bld) 3.6 % Normal 0.0-6.0 [facility] Comment on above: Performed By: #### L [id number] ####[facility] ([facility])[address] [place] [address] Erythrocyte distribution width (RBC) [Ratio] 14.8 % Normal 11.5-15.0 [facility] Comment on above: Performed By: #### L [id number] ####[facility] ([facility])[address] [place] [address] ERYTHROCYTE MEAN CORPUSCULAR HEMOGLOBIN CONCENTRATION (G/DL) BY AUTOMATED 32.4 g/dL Normal 32.0-35.0 [facility] Comment on above: Performed By: #### L [id number] ####[facility] ([facility])[address] [place] [address] Hematocrit (Bld) [Volume fraction] 43.5 % Normal 36.0-50.0 [facility] Comment on above: Performed By: #### L [id number] ####[facility] ([facility])[address] [place] [address] Hemoglobin (Bld) [Mass/Vol] 14.1 g/dL Normal 12.0-17.0 [facility] Comment on above: Performed By: #### L [id number] ####[facility] ([facility])[address] [place] [address] Immature granulocytes (Bld) [#/Vol] 0.02 10*3/uL Normal 0.00-0.20 [facility] Comment on above: Performed By: #### L [id number] ####[facility] ([facility])[address] [place] [address] Immature granulocytes/100 WBC (Bld) 0.3 % Normal 0.0-1.0 [facility] Comment on above: Performed By: #### L [id number] ####[facility] ([facility])[address] [place] [address] Lymphocytes (Bld) [#/Vol] 1.86 10*3/uL Normal 1.20-4.00 [facility] Comment on above: Performed By: #### L [id number] ####[facility] ([facility])[address] [place] [address] Lymphocytes/100 WBC (Bld) 28.8 % Normal 20.0-45.0 [facility] Comment on above: Performed By: #### L [id number] ####[facility] ([facility])[address] [place] [address] MCH (RBC) [Entitic mass] 27.3 pg Normal 27.0-33.0 [facility] Comment on above: Performed By: #### L [id number] ####[facility] ([facility])[address] [place] [address] MCV (RBC) [Entitic vol] 84.1 fL Normal 82.0-98.0 [facility] Comment on above: Performed By: #### L [id number] ####[facility] ([facility])[address] [place] [address] Monocytes (Bld) [#/Vol] 0.54 10*3/uL Normal 0.10-1.00 [facility] Comment on above: Performed By: #### L [id number] ####[facility] ([facility])[address] [place] [address] Monocytes/100 WBC (Bld) 8.4 % Normal 5.0-12.0 [facility] Comment on above: Performed By: #### L [id number] ####[facility] ([facility])[address] [place] [address] Neutrophils (Bld) [#/Vol] 3.78 10*3/uL Normal 1.60-7.60 [facility] Comment on above: Performed By: #### L [id number] ####[facility] ([facility])[address] [place] [address] Neutrophils/100 WBC (Bld) 58.6 % Normal 40.0-72.0 [facility] Comment on above: Performed By: #### L [id number] ####[facility] ([facility])[address] [place] [address] NRBC (PER 100 WBCS) BY AUTOMATED COUNT 0.0 % Normal 0 [facility] Comment on above: Performed By: #### L [id number] ####[facility] ([facility])[address] [address] PLATELETS (10*3/UL) IN BLOOD AUTOMATED COUNT 215 10*3/uL Normal 150-400 [facility] Comment on above: Performed By: #### L [id number] ####[facility] ([facility])[address] [address] RBC (Bld) [#/Vol] 5.17 10*6/uL Normal 3.80-5.70 [facility] Comment on above: Performed By: #### L [id number] ####[facility] ([facility])[address] [place] [address] WBC (Bld) [#/Vol] 6.45 10*3/uL Normal 4.00-10.60 [facility] Comment on above: Performed By: #### L [id number] ####[facility] ([facility])[address] [place] [address] COMPREHENSIVE METABOLIC PANE Renny 01-16-2025 Albumin [Mass/Vol] 3.8 g/dL Normal 3.5-5.7 [facility] Comment on above: Performed By: #### L [id number] #### [facility] ([facility]) [address] [place] [address] ALP [Catalytic activity/Vol] 47 U/L Normal 34-104 [facility] Comment on above: Performed By: #### L [id number] #### [facility] ([facility]) [address] [place] [address] ALT [Catalytic activity/Vol] 21 U/L Normal 7-52 [facility] Comment on above: Performed By: #### L [id number] #### [facility] ([facility]) [address] [place] [address] Anion gap [Moles/Vol] 10 mmol/L Normal 7-20 [facility] Comment on above: Performed By: #### L [id number] #### [facility] ([facility]) [address] [place] [address] AST [Catalytic activity/Vol] 18 U/L Normal 13-39 [facility] Comment on above: Performed By: #### L [id number] #### [facility] ([facility]) [address] [place] [address] Bilirubin [Mass/Vol] 0.8 mg/dL Normal 0.3-1.0 [facility] Comment on above: Performed By: #### L [id number] #### [facility] ([facility]) [address] [place] [address] Calcium [Mass/Vol] 8.3 mg/dL Low 8.6-10.3 [facility] Comment on above: Performed By: #### L [id number] #### [facility] ([facility]) [address] [place] [address] Chloride [Moles/Vol] 111 mmol/L High 98-107 [facility] Comment on above: Performed By: #### L [id number] #### [facility] ([facility]) [address] [place] [address] CO2 [Moles/Vol] 22 mmol/L Normal 21-31 [facility] Comment on above: Performed By: #### L [id number] #### [facility] ([facility]) [address] [place] [address] Creatinine [Mass/Vol] 1.12 mg/dL Normal 0.60-1.30 [facility] Comment on above: Performed By: #### L [id number] #### [facility] ([facility]) [address] [place] [address] GLOMERULAR FILTRATION RATE ML/MIN/1.73 SQ M.PREDICTED 57.4 mL/min/1.73m*2 Low >60.0 [facility] Comment on above: Result Comment: [facility]???s estimated glomerular filtration rate (eGFR) will [...] individuals. Performed By: #### L [id number] #### [facility] ([facility]) [address] [place] [address] Glucose [Mass/Vol] 97 mg/dL Normal 70-100 [facility] Comment on above: Performed By: #### L [id number] #### [facility] ([facility]) [address] [place] [address] Potassium [Moles/Vol] 4.1 mmol/L Normal 3.5-5.1 [facility] Comment on above: Performed By: #### L [id number] #### [facility] ([facility]) [address] [place] [address] Protein [Mass/Vol] 5.9 g/dL Low 6.0-8.3 [facility] Comment on above: Performed By: #### L [id number] #### [facility] ([facility]) [address] [place] [address] Sodium [Moles/Vol] 139 mmol/L Normal 136-145 [facility] Comment on above: Performed By: #### L [id number] #### [facility] ([facility]) [address] [place] [address] Urea nitrogen [Mass/Vol] 16 mg/dL Normal 7-25 [facility] Comment on above: Performed By: #### L [id number] #### [facility] ([place]) [address] [place] [address] UREA NITROGEN/CREATININE (MASS RATIO) IN SER/PLAS 14.3 Normal [facility] Comment on above: Performed By: #### L [id number] #### [facility] ([facility]) [address] [place] [address] CONSULTon 01-16-2025 CONSULT Cardiology Consult Note Reason for Consult: bradycardia, chest pain HPI: Flynn Arnett is a 59 y.o. adult with a past medical history heart failure with preserved ejection fraction, hypertension, severe MR s/p mitral valve repair/annuloplasty, left atrial appendage clip, PFO closure, hyperlipidemia, AAA, DM2 who presents as a transfer from [facility]. Patient reports left-sided chest pain which started [...] for his mitral valve. Patient presented to [facility] with these complaints and was found to [...] to 30 bpm. He was transferred to [facility] for higher level of care. At [facility], his heart rate was [...] mg, oral, 2 times daily HYDROcodone-acetaminop hen ([place]) 5-325 mg tablet 1 tablet, oral, Every [...] on 06/30/2023) 120 capsule 0 HYDROcodone-acetaminop hen ([place]) 5-325 mg tablet Take 1 tablet by mouth every 4 (four) hours if needed. lisinopril 10 mg tablet Take 1 tablet (10 mg) by mouth in the morning. (Patient taking differ (more content not included)... Normal [facility] HEMOGLOBIN A1Con 01-16-2025 Glucose [Mass/Vol] 143 mg/dL Normal [facility] Comment on above: Performed By: #### L [id number] #### [facility] (BEAKER) [address] [place] [place] [address] HbA1c (Bld) [Mass fraction] 6.6 % High 4.0-6.0 [facility] Comment on above: Performed By: #### L [id number] #### [facility] (BEAKER) [address] [place] [address] HIGH SENSITIVITY TROPONIN Io n 01-16-2025 HS TROPONIN I (NG/L) 54 ng/L Critically high <18 [facility] Comment on above: Performed By: #### L [id number] #### [facility] (BEAKER) [address] [place] [address] HS TROPONIN I (NG/L) 55 ng/L Critically high <18 [facility] Comment on above: Performed By: #### L [id number] #### [facility] (BEAKER) [address] [place] [address] HPon 01-16-2025 HP Reason For Consult chest pain, sinus leann, new onset afib Referring Provider: Lauren Velasquez MD, [facility] History Of Present Illness Flynn Arnett is a 59 y.o. adult presenting with bradycardia and chest pain. He states for several months now he has been limited physically, especially while climbing stairs He can do 5-10 and then has to stop due to SOB and chest discomfort that is non-radiating, mild in severity, and relieved with rest. In [facility] ER, above noted and he was significantly [...] on 06/30/2023) 120 capsule 0 HYDROcodone-acetaminop hen ([place]) 5-325 mg tablet Take 1 tablet by [...] mg oral Daily 81 mg at 01/16/25 1905 glucose 24 g oral q15 min PRN [...] Final Atrial Rate 01/16/2025 49 BPM Final NC Interval 01/16/2025 190 ms Final QRS DURATION 01/16/2025 84 ms Final QT Interval 01/16/2025 480 ms Final QTC CALCULATION(BAZETT) 01/16/2025 433 ms Final R-Thomson 01/16/2025 47 degrees Final T Wave Thomson 01/16/2025 71 degrees Final Sodium 01/16/2025 139 136 - 145 mmol/L Final Potassium 01/16/2025 4.1 3.5 - 5.1 mmol/L Final Chloride 0 (more content not included)... [facility] -- Attestation signed by Leatha Caceres MD at 01/17/2025 10:12 AM The patient was evaluated with the resident/fellow Flynn Arnett is a 59 y.o. adult with a past medical history of heart failure with preserved ejection fraction, hypertension, mitral valve prolapse with regurgitation s/p mitral valve repair, hyperlipidemia, tdi-fiqjjgd-cbxedbhcs type 2 diabetes, AAA who presents as a transfer from [facility] for chest pain Critical Care services were [...] Arnett Age - 59 y.o. - 1965 Date of Admission - 01/16/2025 2:24 PM Chief Complaint History of Present Illness Flynn Arnett is a 59 y.o. adult with a past medical history of heart failure with preserved ejection fraction, hypertension, mitral valve prolapse with regurgitation s/p mitral valve repair, hyperlipidemia, fma-hmkknhw-rtmfslydy type 2 diabetes, AAA who presents as a transfer from [facility]. Patient developed left lower chest pain yesterday, [...] had racing heartbeat. He went to the [facility] with these complaints, where reportedly his heart [...] to 30 bpm. He was transferred to [facility] for higher level of care. At [facility], his heart rate was [...] Soft, nontender, (more content not included)... Normal [facility] LACTIC ACID WITH 4 HOUR REFL EXon 01-16-2025 LACTATE (MMOL/L) IN SER/PLAS 0.7 mmol/L Normal 0.5-2.2 [facility] Comment on above: Performed By: #### L [id number] ####[facility] ([facility] [place] [address] LIPID PANELon 01-16-2025 CHOL/HDL 5.3 mg/dL Normal [facility] Comment on above: Performed By: #### L [id number] #### [facility] ([facility]) [address] [place] [address] Cholesterol [Mass/Vol] 169 mg/dL Normal 120-200 [facility] Comment on above: Performed By: #### L [id number] #### [facility] ([facility]) [address] [place] [address] Magnesium [Mass/Vol] 103 mg/dL Normal <150 [facility] Comment on above: Result Comment: TRIG LYCERIDE REFERENCE RANGE: 20 YEARS AND OLDER CARDIOVASCULAR RISK LESS THAN 150 mg/dL LOW RISK 150 TO 199 mg/dL BORDERLINE RISK 200 mg/dL AND GREATER HIGH RISK Performed By: #### L [id number] #### [facility] ([facility]) [address] [place] [address] Magnesium [Mass/Vol] 116 mg/dL Normal 0-160 [facility] Comment on above: Performed By: #### L [id number] #### [facility] ([facility]) [address] [place] [address] Magnesium [Mass/Vol] 32 mg/dL Normal 23-92 [facility] Comment on above: Performed By: #### L [id number] #### [facility] ([facility]) [address] [place] [address] NON HDL CHOL. (LDL+VLDL) 137 Normal [facility] Comment on above: Performed By: #### L AB18 #### [facility] ([facility]) [address] [place] [address] TOTAL VLDL-C 21 mg/dL Normal 0-40 [facility] Comment on above: Performed By: #### L [id number] #### [facility] ([facility]) [address] [place] [address] POCT GLUCOSE METER UNSOLICIT ED RESULTSon 01-16-2025 Glucose [Mass/Vol] 105 mg/dL Normal 70-105 [facility] Comment on above: Order Comment: Waive d Testing in the ED is performed under the ED CLIA certificate #[id number]. Result Comment: pmen doz Performed By: #### L [id number] #### [facility] ([facility]) [address] [place] [address] Glucose [Mass/Vol] 124 mg/dL High 70-105 [facility] Comment on above: Order Comment: Waive d Testing in the ED is performed under the ED CLIA certificate #[id number]. Result Comment: tdel p Performed By: #### L [id number] #### [facility] (BEAKER) [address] [place] [address] TSHon 01-16-2025 THYROTROPIN (MIU/L) IN SER/PLAS BY DETECTION LIMIT <= 0.05 MIU/L 1.64 mIU/L Normal 0.34-5.60 [facility] Comment on above: Performed By: #### L [id number] #### [facility] (BEAKER) [address] [place] [address] Office Visiton 12-06-2024 Follow-up visit [id number] DavidWatson 1965 M Date Provider Department Center 12/06/2024 ADONIS REBOLLEDO Family History Problem Relation Age of Onset No Known Problems Mother No Known Problems Father Family Status - Relation Status Age at Mother Father Level of Service:46973 [place] OFFICE/OUTPATIENT ESTABLISHED MOD MDM 30 MIN Normal [facility] Office Visiton 10-27-2024 Follow-up visit [id number] Watson Arnett 1965 M Date Provider Department Center 10/27/2024 ADONIS REBOLLEDO Family History Problem Relation Age of Onset No Known Problems Mother No Known Problems Father Family Status - Relation Status Age at Mother Father Level of Service:38307 [place] OFFICE/OUTPATIENT ESTABLISHED MOD MDM 30 MIN Normal [facility] CBC AUTO DIFFon 02-06-2023 BASO # 0.0 103/ul Normal 0.0-0.1 [facility] Comment on above: Performed By: #### C BC #### [facility] [address] [address] [address] John Bertrand Basophils/100 WBC (Bld) 0.4 % Normal 0.2-2.0 [facility] Comment on above: Performed By: #### C BC #### [facility] [address] [address] [address] John Bertrand EO # 0.2 103/ul Normal 0.0-0.7 [facility] Comment on above: Performed By: #### C BC #### [facility] [address] [place] [address] Dr. John Bertrand Eosinophils/100 WBC (Bld) 3.1 % Normal 0.9-7.0 [facility] Comment on above: Performed By: #### C BC #### [facility] [address] [place] [address] Dr. John Bertrand Erythrocyte distribution width (RBC) [Ratio] 13.9 % Normal 11.0-15.0 [facility] Comment on above: Performed By: #### C BC #### [facility] [address] [place] [address] Dr. John Bertrand Hematocrit (Bld) [Volume fraction] 43.8 % Normal 42.0-54.0 [facility] Comment on above: Performed By: #### C BC #### [facility] [address] [place] [address] Dr. John Bertrand Hemoglobin (Bld) [Mass/Vol] 14.4 g/dL Normal 14.0-18.0 [facility] Comment on above: Performed By: #### C BC #### [facility] [address] [place] [address] Dr. John Bertrand IG # 0.01 10e3/ul Normal 0.00-0.03 [facility] Comment on above: Performed By: #### C BC #### [facility] [address] [place] [address] Dr. John Bertrand IG % 0.2 % Normal 0.0-0.5 [facility] Comment on above: Performed By: #### C BC #### [facility] [address] [place] [address] Dr. John Bertrand LYMPH # 2.3 103/ul Normal 1.2-3.8 [facility] Comment on above: Performed By: #### C BC #### [facility] [address] [place] [address] Dr. John Bertrand Lymphocytes/100 WBC (Bld) 41.1 % Normal 20.5-60.0 [facility] Comment on above: Performed By: #### C BC #### [facility] [address] [place] [address] Dr. John Bertrand MANUAL DIFF REQ NO Normal [facility] Comment on above: Performed By: #### C BC #### [facility] [address] [place] [address] Dr. John Bertrand MCH (RBC) [Entitic mass] 27.6 pg Normal 25.9-34.0 [facility] Comment on above: Performed By: #### C BC #### [facility] [address] [place] [address] Dr. John Bertrand MCHC (RBC) [Mass/Vol] 32.9 g/dL Normal 29.9-35.2 [facility] Comment on above: Performed By: #### C BC #### [facility] [address] [place] [address] Dr. John Bertrand MCV (RBC) [Entitic vol] 83.9 fL Normal 80.0-94.0 [facility] Comment on above: Performed By: #### C BC #### [facility] [address] [place] [address] Dr. John Bertrand MONO # 0.5 103/ul Normal 0.3-0.8 [facility] Comment on above: Performed By: #### C BC #### [facility] [address] [place] [address] Dr. John Bertrand Monocytes/100 WBC (Bld) 9.0 % Normal 1.7-12.0 [facility] Comment on above: Performed By: #### C BC #### [facility] [address] [place] [address] Dr. John Bertrand NEUT # 2.5 103/ul Normal 1.4-6.5 [facility] Comment on above: Performed By: #### C BC #### [facility] [address] [place] [address] Dr. John Bertrand Neutrophils/100 WBC (Bld) 46.2 % Normal 43.0-75.0 [facility] Comment on above: Performed By: #### C BC #### [facility] [address] [address] [address] John Bertrand Platelet mean volume (Bld) [Entitic vol] 9.6 fL Normal 9.5-13.5 [facility] Comment on above: Performed By: #### C BC #### [facility] [address] [address] [address] John Bertradn PLT 223 103/ul Normal 150-450 [facility] Comment on above: Performed By: #### C BC #### [facility] [address] [address] [address] John Bertrand RBC 5.22 106/ul Normal 4.70-6.10 [facility] Comment on above: Performed By: #### C BC #### [facility] [address] [place] [address] Dr. John Bertrand WBC 5.5 103/ul Normal 4.0-11.0 [facility] Comment on above: Performed By: #### C BC #### [facility] [address] [place] [address] Dr. John Bertrand PROF CHEM 8 (BAS METB)on Anion gap [Moles/Vol] 9.3 mmol/L Normal [facility] Comment on above: Performed By: #### B MP #### [facility] [address] [place] [address] Dr. John Bertrand Calcium [Mass/Vol] 8.7 mg/dL Normal 8.5-10.1 [facility] Comment on above: Performed By: #### B MP #### [facility] [address] [place] [address] Dr. John Bertrand Chloride [Moles/Vol] 105 mmol/L Normal 98-107 [facility] Comment on above: Performed By: #### B MP #### [facility] [address] [place] [address] Dr. John Bertrand CO2 [Moles/Vol] 27.6 mmol/L Normal 21.0-32.0 [facility] Comment on above: Performed By: #### B MP #### [facility] [address] [address] [address] John Bertrand Creatinine [Mass/Vol] 1.28 mg/dL Normal 0.70-1.30 [facility] Comment on above: Performed By: #### B MP #### [facility] [address] [address] [address] John Bertrand EGFR-AF STATELESS >60 Normal >=60 [facility] Comment on above: Performed By: #### B MP #### [facility] [address] [address] [address] John Bertrand EGFR-NON AF STATELESS 58 mL/min/1.73m2 Critically low >=60 [facility] Comment on above: Performed By: #### B MP #### [facility] [address] [place] [address] Dr. John Bertrand Glucose [Mass/Vol] 137 mg/dL Critically high 74-106 [facility] Comment on above: Performed By: #### B MP #### [facility] [address] [address] [address] John Bertrand Potassium [Moles/Vol] 3.9 mmol/L Normal 3.5-5.1 [facility] Comment on above: Performed By: #### B MP #### [facility] [address] [place] [address] Dr. John Bertrand Sodium [Moles/Vol] 138 mmol/L Normal 136-145 [facility] Comment on above: Performed By: #### B MP #### [facility] [address] [address] [address] John Bertrand Urea nitrogen [Mass/Vol] 16.0 mg/dL Normal 7.0-18.0 [facility] Comment on above: Performed By: #### B MP #### [facility] [address] [address] [address] John Bertrand Urea nitrogen/Creatinine [Mass ratio] 12.5 mg/mg Normal [facility] Comment on above: Performed By: #### B MP #### [facility] [address] [place] [address] Dr. John Bertrand CBC AUTO DIFFon 01-14-2023 BASO # 0.0 103/ul Normal 0.0-0.1 [facility] Comment on above: Performed By: #### C BC #### [facility] [address] [place] [address] Dr. John Bertrand Basophils/100 WBC (Bld) 0.6 % Normal 0.2-2.0 [facility] Comment on above: Performed By: #### C BC #### [facility] [address] [place] [address] Dr. John Bertrand EO # 0.1 103/ul Normal 0.0-0.7 [facility] Comment on above: Performed By: #### C BC #### [facility] [address] [place] [address] Dr. John Bertrand Eosinophils/100 WBC (Bld) 2.7 % Normal 0.9-7.0 [facility] Comment on above: Performed By: #### C BC #### [facility] [address] [place] [address] Dr. John Bertrand Erythrocyte distribution width (RBC) [Ratio] 13.9 % Normal 11.0-15.0 [facility] Comment on above: Performed By: #### C BC #### [facility] [address] [place] [address] Dr. John Bertrand Hematocrit (Bld) [Volume fraction] 44.8 % Normal 42.0-54.0 [facility] Comment on above: Performed By: #### C BC #### [facility] [address] [place] [address] Dr. John Bertrand Hemoglobin (Bld) [Mass/Vol] 14.8 g/dL Normal 14.0-18.0 [facility] Comment on above: Performed By: #### C BC #### [facility] [address] [place] [address] Dr. John Bertrand IG # 0.01 10e3/ul Normal 0.00-0.03 [facility] Comment on above: Performed By: #### C BC #### [facility] [address] [place] [address] Dr. John Bertrand IG % 0.2 % Normal 0.0-0.5 [facility] Comment on above: Performed By: #### C BC #### [facility] [address] [place] [address] Dr. John Bertrand LYMPH # 1.9 103/ul Normal 1.2-3.8 [facility] Comment on above: Performed By: #### C BC #### [facility] [address] [place] [address] Dr. John Bertrand Lymphocytes/100 WBC (Bld) 37.0 % Normal 20.5-60.0 [facility] Comment on above: Performed By: #### C BC #### [facility] [address] [place] [address] Dr. John Bertrand MANUAL DIFF REQ NO Normal [facility] Comment on above: Performed By: #### C BC #### [facility] [address] [place] [address] Dr. John Bertrand MCH (RBC) [Entitic mass] 27.2 pg Normal 25.9-34.0 [facility] Comment on above: Performed By: #### C BC #### [facility] [address] [place] [address] Dr. John Bertrand MCHC (RBC) [Mass/Vol] 33.0 g/dL Normal 29.9-35.2 [facility] Comment on above: Performed By: #### C BC #### [facility] [address] [place] [address] Dr. John Bertrand MCV (RBC) [Entitic vol] 82.4 fL Normal 80.0-94.0 [facility] Comment on above: Performed By: #### C BC #### [facility] [address] [place] [address] Dr. John Bertrand MONO # 0.5 103/ul Normal 0.3-0.8 [facility] Comment on above: Performed By: #### C BC #### [facility] [address] [place] [address] Dr. John Bertrand Monocytes/100 WBC (Bld) 8.8 % Normal 1.7-12.0 [facility] Comment on above: Performed By: #### C BC #### [facility] [address] [place] [address] Dr. John Bertrand NEUT # 2.7 103/ul Normal 1.4-6.5 [facility] Comment on above: Performed By: #### C BC #### [facility] [address] [place] [address] Dr. John Bertrand Neutrophils/100 WBC (Bld) 50.7 % Normal 43.0-75.0 [facility] Comment on above: Performed By: #### C BC #### [facility] [address] [place] [address] Dr. John Bertrand Platelet mean volume (Bld) [Entitic vol] 9.5 fL Normal 9.5-13.5 [facility] Comment on above: Performed By: #### C BC #### [facility] [address] [place] [address] Dr. John Bertrand PLT 235 103/ul Normal 150-450 [facility] Comment on above: Performed By: #### C BC #### [facility] [address] [place] [address] Dr. John Bertrand RBC 5.44 106/ul Normal 4.70-6.10 [facility] Comment on above: Performed By: #### C BC #### [facility] [address] [place] [address] Dr. John Bertrand WBC 5.3 103/ul Normal 4.0-11.0 [facility] Comment on above: Performed By: #### C BC #### [facility] [address] [place] [address] Dr. John Bertrand FREE THYROXINE INDEX T7on FTI 2.16 Normal 1.30-4.50 [facility] Comment on above: Performed By: #### T SH, CMP, T7, LIPID ####[facility] [id number] [address]Dr. John Bertrand T3U 36.0 % Normal 33.0-40.0 [facility] Comment on above: Performed By: #### T SH, CMP, T7, LIPID ####[facility] [id number] [place], [place] [address]AoDr. John Bertrand T4 [Mass/Vol] 6.00 ug/dL Normal 4.50-12.10 [facility] Comment on above: Performed By: #### T SH, CMP, T7, LIPID ####[facility] [id number] [id number] John Bertrand GLYCOHEMOGLOBIN A1Con 2022 ADA RECOMMENDATION SEE BELOW Normal [facility] Comment on above: Result Comment: ADA RECOMMENDED LIMIT 4.0 - 6.0 ADA THERAPEUTIC TARGET < 7.0 ACTION SUGGESTED > 7.0 Performed By: #### A 1C #### [facility] [address] [address] [address] John Bertrand Glucose [Mass/Vol] 154 mg/dL Normal [facility] Comment on above: Performed By: #### A 1C #### [facility] [address] [address] [address] John Bertrand HbA1c (Bld) [Mass fraction] 7.0 % Critically high 4.5-6.2 [facility] Comment on above: Performed By: #### A 1C #### [facility] [address] [address] [address] John Bertrand LIPID PROFILEon 01-14-2023 CHOL-HDL RATIO NORM SEE BELOW Normal [facility] Comment on above: Result Comment: 3.3 - 4.4 LOW RISK 4.4 - 7.1 AVERAGE RISK 7.1 - 11.0 MODERATE RISK >11.0 HIGH RISK Performed By: #### T SH, CMP, T7, LIPID ####[facility] [id number] [id number][address] John Bertrand Cholesterol [Mass/Vol] 151 mg/dL Normal <=200 [facility] Comment on above: Performed By: #### T SH, CMP, T7, LIPID ####[facility] [id number] [id number][address] John Bertrand Cholesterol in HDL [Mass/Vol] 36 mg/dL Critically low 40-60 [facility] Comment on above: Performed By: #### T SH, CMP, T7, LIPID ####[facility] [id number] [id number][address] John Bertrand Cholesterol in LDL [Mass/Vol] 101.4 mg/dL Normal [facility] Comment on above: Performed By: #### T SH, CMP, T7, LIPID ####[facility] [id number] [id number]. John Bertrand Cholesterol.total/Ch olesterol in HDL [Mass ratio] 4.2 {ratio} Normal [facility] Comment on above: Performed By: #### T SH, CMP, T7, LIPID ####[facility] [id number] [address]Dr. John Bertrand HDL NORMAL > or = 60 mg/dl - LO W CARDIOVASCULAR RISK <40 mg/dl - HIGH CARDIOVASCULAR RISK Normal [facility] Comment on above: Performed By: #### T SH, CMP, T7, LIPID ####[facility] [id number] [address]Dr. John Bertrand LDL CALC NORMAL SEE BELOW Normal [facility] Comment on above: Result Comment: <100 mg/dl OPTIMAL 100 - 129 mg/dl NEAR OR ABOVE OPTIMAL 130 - 159 mg/dl BORDERLINE HIGH 160 - 189 mg/dl HIGH >190 mg/dl VERY HIGH Performed By: #### T SH, CMP, T7, LIPID ####[facility] [id number] [id number]. John Bertrand Triglyceride [Mass/Vol] 68 mg/dL Normal <=150 [facility] Comment on above: Performed By: #### T SH, CMP, T7, LIPID ####[facility] [id number] [id number]. John Bertrand VLDL CALC 13.6 mg/dL Normal [facility] Comment on above: Performed By: #### T SH, CMP, T7, LIPID ####[facility] [id number] [place] [id number]. John Bertrand PROF 14(COMP METB)on 023 Albumin [Mass/Vol] 3.8 g/dL Normal 3.4-5.0 [facility] Comment on above: Performed By: #### T SH, CMP, T7, LIPID ####[facility] [address] [place] [address]Dr. John Bertrand Albumin/Globulin [Mass ratio] 1.1 {ratio} Normal [facility] Comment on above: Performed By: #### T SH, CMP, T7, LIPID ####[facility] [address] [place] [address]Dr. John Bertrand ALP [Catalytic activity/Vol] 71 U/L Normal 46-116 [facility] Comment on above: Performed By: #### T SH, CMP, T7, LIPID ####[facility] [address] [place] [address]Dr. John Bertrand ALT [Catalytic activity/Vol] 80 U/L Critically high 16-63 [facility] Comment on above: Performed By: #### T SH, CMP, T7, LIPID ####[facility] [address] [place] [address]Dr. John Bertrand Anion gap [Moles/Vol] 11.2 mmol/L Normal [facility] Comment on above: Performed By: #### T SH, CMP, T7, LIPID ####[facility] [address] [place] [address]Dr. John Bertrand AST [Catalytic activity/Vol] 39 U/L Critically high 15-37 [facility] Comment on above: Performed By: #### T SH, CMP, T7, LIPID ####[facility] [address] [place] [address]Dr. John Bertrand Bilirubin [Mass/Vol] 0.4 mg/dL Normal 0.2-1.0 [facility] Comment on above: Performed By: #### T SH, CMP, T7, LIPID ####[facility] [address] [place] [address]Dr. John Bertrand Calcium [Mass/Vol] 9.2 mg/dL Normal 8.5-10.1 [facility] Comment on above: Performed By: #### T SH, CMP, T7, LIPID ####[facility] [address] [place] [address]Dr. Nataliebrenda Bertrand Chloride [Moles/Vol] 107 mmol/L Normal 98-107 [facility] Comment on above: Performed By: #### T SH, CMP, T7, LIPID ####[facility] [address] [place] [address]Dr. Nataliebrenda Bertrand CO2 [Moles/Vol] 26.8 mmol/L Normal 21.0-32.0 [facility] Comment on above: Performed By: #### T SH, CMP, T7, LIPID ####[facility] [address] [place] [address]Dr. John Bertrand Creatinine [Mass/Vol] 1.21 mg/dL Normal 0.70-1.30 [facility] Comment on above: Performed By: #### T SH, CMP, T7, LIPID ####[facility] [address] [place], [place] [address]Dr. John Bertrand EGFR-AF STATELESS >60 Normal >=60 [facility] Comment on above: Performed By: #### T SH, CMP, T7, LIPID ####[facility] [address] [place], [place] [address]Dr. John Bertrand EGFR-NON AF STATELESS >60 Normal >=60 [facility] Comment on above: Performed By: #### T SH, CMP, T7, LIPID ####[facility] [address] [place] [address]Dr. John Bertrand Globulin (S) [Mass/Vol] 3.5 g/dL Normal [facility] Comment on above: Performed By: #### T SH, CMP, T7, LIPID ####[facility] [address] [place] [address]Dr. John Bertrand Glucose [Mass/Vol] 140 mg/dL Critically high 74-106 [facility] Comment on above: Performed By: #### T SH, CMP, T7, LIPID ####[facility] [address] [place] [address]Dr. John Bertrand Potassium [Moles/Vol] 4.0 mmol/L Normal 3.5-5.1 [facility] Comment on above: Performed By: #### T SH, CMP, T7, LIPID ####[facility] [address] [place] [address]Dr. John Bertrand Protein [Mass/Vol] 7.3 g/dL Normal 6.4-8.2 [facility] Comment on above: Performed By: #### T SH, CMP, T7, LIPID ####[facility] [address] [place] [address]Dr. John Bertrand Sodium [Moles/Vol] 141 mmol/L Normal 136-145 [facility] Comment on above: Performed By: #### T SH, CMP, T7, LIPID ####[facility] [address] [place] [address]Dr. Nataliebrenda Bertrand Urea nitrogen [Mass/Vol] 11.0 mg/dL Normal 7.0-18.0 [facility] Comment on above: Performed By: #### T SH, CMP, T7, LIPID ####[facility] [address] [place] [address]Dr. John Bertrand Urea nitrogen/Creatinine [Mass ratio] 9.1 mg/mg Normal [facility] Comment on above: Performed By: #### T SH, CMP, T7, LIPID ####[facility] [address] [place] [address]Dr. Nataliebrenda Jerzy TSHon 01-14-2023 TSH 1.532 uIU/mL Normal 0.358-3.740 [facility] Comment on above: Performed By: #### T SH, CMP, T7, LIPID ####[facility] [address] [place] [address]Dr. John Jerzy Physician Referralon 023 Physician Referral [phone] [id number] Normal [facility] CT ABD/PELV W CONon 12-17-19 23 [...] by: GLORIA STRANGE Date: 2022-12-16 09:20 Normal [facility] ECHOCARDIO M/2D COMPLETEon 0 12-16-2022 ECHOCARDIO M/2D COMPLETE Patient: FLYNN ARNETT Exam Date: 12/16/2022 : 1965 Gender:M Ordering : DR LAUREN VELASQUEZ . Admission #: [id number] Family : Order #: [id number] CLICK HERE TO VIEW EXAM ECHOCARDIOGRAM REPORT [...] M.D. on 12/16/2022 at 12:11 Normal [facility] Covid-19 PCR ([facility])on SARS-CoV-2 (COVID-19) RNA THALIA+probe Ql (Unsp spec) Not detected Normal NOT DETECTED [facility] Comment on above: Result Comment: This test is not yet approved or cleared by the [place] FDA. When there are no FDA-approved or cleared tests available, and other criteria are met, FDA can make tests available under an emergency access mechanism called an Emergency Use Authorization (EUA). The EUA for this test is supported by the [place] of Health and Human Service's (HHS's) declaration [...] SARS-CoV-2. Performed By: #### C VDTBH #### [facility] [address] [place] [address] Dr. John Bertrand INFLUENZA A AND B AGon 03-06 [facility] SEE BELOW Normal [facility] Comment on above: Result Comment: Nega tive for Flu A protein angiten. Infection due to Flu A cannot be ruled out. Flu A angiten in the sample may be below the detection limit of the test. Performed By: #### I NFLUAB #### [facility] [address] [place] [address] Dr. John Bertrand INFLUBNEGH SEE BELOW Normal [facility] Comment on above: Result Comment: Nega tive for Flu B protein antigen. Infection due to Flu B cannot be ruled out. Flu B antigen in the sample may be below the detection limit of the test. Performed By: #### I NFLUAB #### [facility] [address] [place] [address] Dr. John Bertrand INFLUENZA A AG Negative Normal NEGATIVE SEE COMMENT [facility] Comment on above: Performed By: #### I NFLUAB #### [facility] [address] [place] [address] Dr. John Bertrand INFLUENZA B AG Negative Normal NEGATIVE SEE COMMENT [facility] Comment on above: Performed By: #### I NFLUAB #### [facility] [address] [place] [address] Dr. John Bertrand INTERNAL CONTROLS Within Normal Limits Normal Wi thin Normal Limits [facility] Comment on above: Performed By: #### I NFLUAB #### [facility] [address] [place] [address] Dr. John Bertrand SYMPTOMATIC COVID-19 ANTIGEN on 03-06-2022 EUA Statement SEE BELOW Normal [facility] Comment on above: Result Comment: This [...] sooner. Performed By: #### C VDAGS #### [facility] [address] [place] [address] Dr. John Bertrand SARS-CoV-2 (COVID-19) RNA THALIA+probe Ql (Unsp spec) Negative Normal NEGATIVE [facility] Comment on above: Performed By: #### C VDAGS #### [facility] [address] [address] [address] John Bertrand Vital Signs Date Time Vital Sign Value Performing Clinician Facility 05-10-2023 09:20-0400 Body height 175.26 cm Monica Cardozamond Other [employer] Other 05-10-2023 09:20-0400 Body mass index (BMI) [Ratio] 33.96 kg/m2 Monica Cardozamond Other [employer] Other 05-10-2023 09:20-0400 Body temperature 99 [degF] Monica Cardozamond Other [employer] Other 05-10-2023 09:20-0400 Body weight 104.33 kg Monica Cardozamond Other [employer] Other 05-10-2023 09:20-0400 Diastolic blood pressure 102 mm[Hg] Monica Cardozamond Other [employer] Other 05-10-2023 09:20-0400 Respiratory rate 18 /min Monica Cardozamond Other [employer] Other 05-10-2023 09:20-0400 SaO2% (BldA) [Mass fraction] 97 % Monica Cardozamond Other [employer] Other 05-10-2023 09:20-0400 Systolic blood pressure 141 mm[Hg] Monica Cardozamond Other [employer] Other 01-09-2023 15:29-0400 Blood Pressure Location Colt ST[facility] [place] 01-09-2023 15:29-0400 Diastolic blood pressure 98 mm[Hg] [facility] N[facility] [place] 01-09-2023 15:29-0400 Heart rate 80 /min [facility] N[facility] [place] 01-09-2023 15:29-0400 Respiratory rate 16 /min [facility] [place] 01-09-2023 15:29-0400 Systolic blood pressure 146 mm[Hg] Colt NILL [facility] [place] Encounters Encounter Date Encounter Type Care Provider Facility Start: 07-11-2025 End: 07-11-2025 ambulatory [facility] Start: 05-31-2025 ambulatory [facility] Start: 05-31-2025 End: 05-31-2025 ambulatory [facility] Start: 05-23-2025 ambulatory [facility] Start: 05-10-2025 End: 05-10-2025 ambulatory [facility] Start: 03-07-2025 End: 03-08-2025 ambulatory [facility] Start: 02-28-2025 ambulatory [facility] Start: 01-31-2025 End: 01-31-[address] [facility] Start: 01-26-2025 ambulatory [facility] Start: 01-18-2025 Evaluation and manag ement of inpatient [facility] Start: 01-18-2025 Evaluation and manag ement of inpatient [facility] Start: 01-16-2025 Evaluation and manag ement of inpatient LEATHA [facility] Start: 01-16-2025 End: 01-18-2025 Evaluation and management of inpatient LAUREN [facility] Start: 12-06-2024 End: 12-06-2024 ambulatory [facility] Start: 10-27-2024 End: 10-27-[address] [facility] Start: 05-10-2023 End: 05-10-2023 ambulatory Monica Jackson Other [employer] Other Start: 05-10-2023 Office outpatient ne w 20 minutes Monica Jackson [facility] Start: 02-12-2023 Encounter for other preprocedural examination [facility] Start: 02-12-2023 Encounter for preprocedural laboratory examination [facility] Start: 02-06-2023 End: 02-07-[address] LAUREN VELASQUEZ . Facility:[facility] Start: 02-06-2023 End: 02-07-2023 Encounter for preprocedural laboratory examination DR LAUREN VELASQUEZ . Facility:[facility] Start: 01-20-2023 Encounter for genera l adult medical examination without abnormal findings DR LAUREN VELASQUEZ . [facility] Start: 01-14-2023 End: 01-15-[address] LAUREN VELASQUEZ . Facility:[facility] Start: 01-14-2023 End: 01-15-2023 Encounter for general adult medical examination without abnormal findings DR LAUREN VELASQUEZ . Facility: Start: 01-09-2023 End: 01-10-2023 [facility] Start: 01-09-2023 End: 01-09-2023 Patient encounter procedure [facility] [place] Start: 12-16-2022 End: 12-17-[address] LAUREN VELASQUEZ . Facility:[facility] Start: 03-06-2022 End: 03-06-[address] LAUREN VELASQUEZ . Facility:[facility] Procedures Date Procedure Procedure Detail Performing Clinician Start: 01-14-2023 PSA screening MONICA SANTOS Comment on above: Performed By: #### P [facility] #### [facility] [address] [address] [address] John Bertrand Open reduction of fracture with internal fixation Colt STUART Comment on above: right arm Immunizations Immunization Date Immunization Notes Care Provider Ashley horvath NEGATED: Highlighted row has not occurred!01-09-2023 influenza virus vaccine, unspecified formulation [facility] [place] NEGATED: Highlighted row has not occurred!01-09-2023 SARS-CoV-2 mRNA (tozinameran 5y-11y) vaccine [facility] [place] Payers Date Payer Category Payer Unknown [id number] 1965 Unknown [id number] 2.16.8 [id number] 1965 Unknown [id number] 2.16.84 [id number] 1965 Unknown [id number] 2.16.84 [id number] 1965 Unknown [id number] 2.16.84 [id number] 1965 Unknown [id number] 2.16.84 [id number] 1965 Unknown [id number] 2.16.84 [id number] 1957 Self-pay [id number] 1957 Unknown [id number] 1957 Unknown [id number] Social History Date Type Detail Facility Start: 01-09-2023 Tobacco smoking status Never s moked tobacco (finding) [facility] [place] Tobacco smoking status Never [facility] [place] Sex Assigned At Male [facility] Functional Status Date Assessment Result Facility 01-09-2023 Functional Status N/A [facility] [place] Clinical Notes 12-18-2022 to 07-11-2025 Note Date & Type Note Facility 07-11-2025 Note [facility] Consult Note [facility] Reason for visit: Device detected A-fib [...] Neurological: Positive for dizziness and light-headedness. HPI: Flynn Arnett is a 59 y.o. year old with past medical history of HFpEF, hypertension, severe MR s/p mitral valve repair/annuloplasty with left atrial appendage clip, PFO closure hyperlipidemia AAA, DM 2 was transferred from [facility] to [facility] with underlying A-fib with RVR. He was placed on Cardizem which resulted in his heart rate dropping to 20 to 30 minutes and subsequent was transferred over to [facility] he underwent a cardiac [...] PMH: Past Medical History: Diagnosis Date Afib (CMS/HCC) Aneurysm Angina pectoris, unstable (CMS/HCC) BMI 36.0-36.9,adult Bradycardia Diabetes mellitus (CMS/HCC) GERD (gastroesophageal reflux disease) Hyperlipidemia Hypertension Mitral valve prolapse 04/2023 NONRHEUMATIC Murmur Pacemaker Restless leg syndrome Sick sinus syndrome (CMS/HCC) PSH: Past Surgical History: Procedure Laterality Date [...] Year: No Utilities: Not At Risk (01/16/2025) [facility] Utilities Threatened with loss of utilities: No Health Literacy: Not on file Allergies: No Known Allergies Weight: 102kg Visit Vitals BP 127/89 (BP Location: Left arm, Patient Position: Sitting) Pulse 68 Ht 1.753 m (5' 9 ) Wt 102 kg (225 lb) SpO2 99% BMI 33.23 kg/m??? Smoking Status Never BSA 2.23 m??? [...] in the morning. 30 tablet 0 HYDROcodone-acetaminophen (Luna [place]) 5-325 mg tablet Take 1 tablet by [...] 20 mg by mouth at bedtime. carvedilol (C (more content not included)... [facility] 05-31-2025 Note ATRIAL FIBRILLATION ABLATION PROCEDURE NOTE DATE OF PROCEDURE: 05/31/2025 PERFORMING PHYSICIAN: Dr. Darryn Lundy CORN BREEDER: CHAYO CONSENT: Patient NAME OF THE PROCEDURE: [...] Vascade closure device. Device threshold were verified (more content not included)... [facility] 05-31-2025 Note Patient: Flynn kim Procedure Summary Date: 05/31/25 Room / Location: [facility] JUDGE 1 EP / [facility] HVC VASCULAR LAB (Cath) Anesthesia Start: 1242 Anesthesia Stop: 1559 Procedure: Ablation a-fib w/ pvi Diagnosis: Paroxysmal A-fib (CMS/HCC) (AFIB) Providers: Darryn Lundy MD Responsible Provider: Curt Azul MD Anesthesia Type: general ASA Status: 3 Anesthesia Type: general Vitals Value Taken Time BP 126/92 05/31/25 16:40 Temp 36.2 ???C (97.2 ???F) 05/31/25 15:55 Pulse 75 05/31/25 16:52 Resp 13 05/31/25 16:52 SpO2 94 % 05/31/25 16:52 Vitals shown include unfiled device data. Anesthesia Post Evaluation Patient location during evaluation: PACU Patient participation: complete - patient participated Level of consciousness: awake Pain score: 1 Pain management: adequate Airway patency: patent Cardiovascular status: stable Respiratory status: acceptable Hydration status: balanced Patient is hemodynamically stable and is able to be discharged from PACU per anesthesia protocol. There were no known notable events for this encounter. [facility] 05-31-2025 Note Arterial Line: Date/Time: 05/31/2025 12:01 PM An [...] And Ultrasound probe cover. VSS. Staffing Performed: resident/CLINICAL PSYCHOLOGIST LICENSED/KATE Anesthesiologist: Sonja Mccarty MD Resident/CLINICAL PSYCHOLOGIST LICENSED: Damien Barnes MD Performed by: Damien Barnes MD Authorized by: Sonja Mccarty MD [facility] 05-31-2025 Note Airway Date/Time: 05/31/2025 1:07 PM Reason: elective Airway not difficult General Information and Staff Patient location during procedure: OR Anesthesiologist: Sonja Mccarty MD Performed: resident/CLINICAL PSYCHOLOGIST LICENSED/KATE Patient Condition Indications for airway management: anesthesia [...] 1 Number of other approaches attempted: 0 [facility] 05-31-2025 Note Patient: Flynn kim Procedure Information Date/Time: 05/31/25 1130 Procedure: Ablation a-fib w/ pvi - PC APPROVED Location: [facility] JUDGE 1 EP / [facility] HV VASCULAR LAB (Cath) Providers: Darryn Lundy MD Relevant Problems Cardio (+) Angina pectoris, unstable (CMS/HCC) (+) Mitral valve prolapse (+) Mitral valve regurgitation congenital (+) Murmur (+) PAF (paroxysmal atrial fibrillation) (CMS/HCC) (+) Primary hypertension (+) Sick sinus syndrome (CMS/HCC) GI (+) GERD (gastroesophageal reflux disease) /Renal (+) Cardiorenal syndrome Clinical information reviewed: Tobacco Allergies Meds Med Hx Surg Hx Fam Hx Soc Hx Pertinent history includes: Recent PPM Pt denies MANNY. METS > 4 Past Medical History: Diagnosis Date Afib (CMS/HCC) Aneurysm Angina pectoris, unstable (CMS/HCC) BMI 36.0-36.9,adult Bradycardia Diabetes mellitus (CMS/HCC) GERD (gastroesophageal reflux disease) Hyperlipidemia Hypertension Mitral valve prolapse 04/2023 NONRHEUMATIC Murmur Pacemaker Restless leg syndrome Sick sinus syndrome (CMS/[facility]) Past Surgical History: Procedure Laterality Date CARDIAC CATHETERIZATION Bilateral 04/2023 MITRAL VALVE REPAIR PATENT FORAMEN OVALE CLOSURE Social History Tobacco Use Smoking status: Never Smokeless tobacco: Never Vaping Use Vaping status: Never Used Substance Use Topics Alcohol use: Not Currently Drug use: Never Medication Documentation Review Audit Reviewed by Anya Mayes RN (Registered Nurse) on 05/31/25 at 1038 Medication Order Taking? Sig Documenting Provider Last Dose Status amiodarone (Pacerone) 200 mg tablet [id number] Yes Take 1 tablet (200 mg) by mouth in the morning. Darryn Lundy MD 05/30/2025 Active apixaban (Eliquis) 5 mg tablet [id number] Yes Take 1 tablet (5 mg) by mouth two times daily. Darryn Lundy MD 05/30/2025 Morning Active aspirin 81 mg EC tablet [id number] Yes Take 81 mg by mouth in the morning. Historical MD Sammy 05/30/2025 Active carvedilol (Coreg) 3.125 mg tablet [id number] Take 1 tablet (3.125 mg) by mouth with breakfast and with evening meal. Patient not taking: Reported on 05/08/2025 Adonis Jacob MD Active dapagliflozin propanediol (Farxiga) 10 mg [id number] Yes Take 1 tablet (10 mg) by mouth in the morning. Adonis Jacob MD 05/30/2025 Active dilTIAZem CD (Cardizem CD) 120 mg 24 hr capsule [id number] Yes Take 1 capsule (120 mg) by mouth once daily as directed. Lauren Rdz CNP 05/30/2025 Active ezetimibe (Zetia) 10 mg tablet [id number] Take 1 tablet (10 mg) by mouth in the morning. Patient not taking: Reported on 03/07/2025 Stephane Vale CNP 03/07/25 2359 furosemide (Lasix) 20 mg tablet [id number] Take 1/2 tablet daily Patient not taking: Reported on 05/08/2025 Adonis Jacob MD Active HYDROcodone-acetaminophen (Luna Pier) 5-325 mg tablet [id number] Yes Take 1 tablet by mouth every 4 (four) hours if needed. Historical Provider, Past Month Active lisinopril 10 mg tablet [id number] Yes Take 1 tablet (10 mg) by mouth in the morning. Adonis Jacob MD 05/30/2025 Active metoprolol succinate XL (Toprol-XL) 25 mg 24 hr tablet [id number] Yes Take 1 tablet (25 mg) by mouth in the morning. STOP CARVEDILOL Lauren Rdz CNP 05/30/2025 Active pantoprazole (ProtoNix) 40 mg EC tablet [id number] Yes Take 40 mg by mouth before breakfast. Historical Provider, 05/30/2025 Active simvastatin (Zocor) 20 mg tablet [id number] Yes Take 20 mg by mouth at bedtime. Historical Provider, 05/30/2025 Active No Known Allergies Pertinent Diagnostic data has been reviewed, part of which includes: Hemoglobin (g/dL) Date Value 01/18/2025 15.0 01/17/2025 13.9 01/16/2025 14.1 Auto WBC (10*3/uL) Date Value 01/18/2025 7.63 01/17/2025 6.77 01/16/2025 6.45 Potassium, Whole Blood (mmol/L) Date Value 05/27/2023 4.9 05/27/2023 4.1 05/27/2023 3.8 Potassium (mmol/L) Date Value 01/18/2025 4.0 01/17/2025 4.1 01/16/2025 4.1 Glucose (mg/dL) Date Value 01/18/2025 128 (H) 01/17/2025 120 (H) 01/16/2025 97 Creatinine (mg/dL) Date Value 01/18/2025 1.24 01/17/2025 1.24 01/16/2025 1.12 eGFR (mL/min/1.73m*2) Date Value 01/18/2025 50.8 (L) 01/17/2025 50.8 (L) 01/16/2025 57.4 (L) 06/05/2023 58.1 (L) 06/04/2023 60.0 (L) INR (no units) Date Value 05/28/2023 1.18 (H) 05/27/2023 1.23 (H) 05/27/2023 1.32 (H) No results found for: PTT Lab Results Component Value Date CALCIUM 8.2 (L) 01/18/2025 NA 136 01/18/2025 CO2 24 01/18/2025 CL 106 01/18/2025 BUN 16 01/18/2025 HCT 45.0 01/18/2025 PLT 219 01/18/2025 ALT 21 01/16/2025 AST 18 01/16/2025 ALKPHOS 47 01/16/2025 BILITOT 0.8 01/16/2025 HGBA1C 6.6 (H) 01/16/2025 ECG Encounter Date: 01/16/25 ECG 12 lead Result Value Ventricular Rate 128 QRS DURATION 80 QT Interval 330 QTC CALCULATION(BAZETT) 481 R-Thomson 62 T Wave Thomson 87 Impression Atrial fibrillation with rapid ventricula (more content not included)... [facility] 03-07-2025 Note [place] Electrophysiology Consult Note [facility] Reason for visit: Device detected A-fib HPI: Flynn Arnett is a 59 y.o. year old with past medical history of HFpEF, hypertension, severe MR s/p mitral valve repair/annuloplasty with left atrial appendage clip, PFO closure hyperlipidemia AAA, DM 2 was transferred from [facility] to [facility] with underlying A-fib with RVR. He was placed on Cardizem which resulted in his heart rate dropping to 20 to 30 minutes and subsequent was transferred over to [facility] he underwent a cardiac [...] Year: No Utilities: Not At Risk (01/16/2025) [facility] Utilities Threatened with loss of utilities: [...] daily as directed. 90 capsule 3 HYDROcodone-acetaminophen ([place]) 5-325 mg tablet Take 1 tablet by [...] Chest wall: Rate (more content not included)... [facility] 02-16-2025 Note Patient [facility] for [facility] last week. Still [...] palpitations. He did not check his HR. [facility] 01-31-2025 Note [facility] Cardiology Clinic Note Chief Complaint: Follow up HPI: Flynn Arnett is a 59 y.o. male Patient here for follow up [facility]. Underwent heart cath and [...] regurgitation s/p mitral valve repair Essential hypertension Mae-chepnxz-lhtdqdjym type 2 diabetes mellitus Discharge Disposition Home [...] HYDROcodone-acetaminophen 5-325 mg tablet Commonly known as: Luna Pier lisinopril 10 mg tablet Take 1 tablet (10 mg) by mouth in the morning. pantoprazole 40 mg EC tablet Commonly known as: ProtoNix simvastatin 20 mg tablet Commonly known as: Zocor Where to Get Your Medications These medications were sent to [facility] - [place], [place] - [address] [place] [address], [place] [facility] [id number] apixaban 5 mg tablet Activity Normal activity as tolerated Diet Patient currently has no discharge diet orders Allergies Patient has no known allergies. Hospital Course Flynn Arnett is a 59 y.o. adult with a past medical history of heart failure with preserved ejection fraction, hypertension, mitral valve prolapse with regurgitation s/p mitral valve repair, hyperlipidemia, ify-pvclrme-mkmqnvrpq type 2 diabetes, AAA who presents as a transfer from [facility]. Patient developed left lower chest pain yesterday, [...] had racing heartbeat. He went to the [facility] with these complaints, where reportedly his heart [...] to 30 bpm. He was transferred to [facility] for higher level of care. At [facility], his heart rate was [...] working adequately. Du (more content not included)... [facility] 01-18-2025 Note DUAL CHAMBER PACEMAK ER IMPLANT [...] using modified seldinger technique using a 5 Honduran micro-puncture needle on two occasions and 0.35 [...] for the device above the muscle. 6 Honduran Safesheaths were placed over the wire. An active fixation Biotronik pacing lead was then delivered through the 6Fsheath tothe right ventricle. After confirmation of lead position on orthogonal views (SWANSON and ESTONIAN) to confirm septal position, the screw was [...] lead position on orthogonal views (SWANSON and ESTONIAN), the screw was activated. Good sensing parameters, [...] any concerns. Darryn Lundy MD Cardiac Electrophysiology [facility] 01-18-2025 Note ---- Attestation signed by Jonnathan [...] -- -- -- -- 97 % -- 01/17/251841 (!) 156/93 -- -- 52 12 97 [...] 80 QT Interval 330 QTC CALCULATION(BAZETT) 481 R-Thomson 62 T Wave Thomson 87 Impression Atrial fibrillation with rapid ventricular [...] Bubble Study Result Date: 01/16/2025 1 1 [facility] Heart Station [address] [place] [address] [phone] (fax) Echocardiogram-[facility] Name: FLYNN ARNETT Study Date: 01/16/2025 02:51 PM B/P: 117 mmHg/76 mmHg HR: 54 bpm Date of : 1965 Location: [facility] Height: 69 in. Age: [...] RVSP 33 mmHg (more content not included)... [facility] 01-18-2025 Note ---- Attestation signed by Leatha Caceres MD at 01/18/2025 10:14 AM The patient was evaluated with the resident/fellow Flynn Arnett is a 59 y.o. adult with a past medical history of heart failure with preserved ejection fraction, hypertension, mitral valve prolapse with regurgitation s/p mitral valve repair, hyperlipidemia, roy-knpailg-pyiukuoqi type 2 diabetes, AAA who presents as a transfer from [facility] for chest pain Critical Care services were [...] Arnett Age - 59 y.[facility]. [facility] 1965 [id number] Date of Admission - 01/16/2025 2:24 PM HPI/Hospital Course Subjective Flynn Arnett is a 59 y.o. adult with a past medical history of heart failure with preserved ejection fraction, hypertension, mitral valve prolapse with regurgitation s/p mitral valve repair, hyperlipidemia, usg-daudcfy-tntxquloi type 2 diabetes, AAA who presents as a transfer from [facility]. Patient developed left lower chest pain yesterday, [...] had racing heartbeat. He went to the [facility] with these complaints, where reportedly his heart [...] to 30 bpm. He was transferred to [facility] for higher level of care. At [facility], his heart rate was [...] - 100 mm (more content not included)... [facility] 01-17-2025 Note Patient: Flynn kim Procedure Information Date/Time: 01/17/25 1700 Procedure: Implant PPM Location: [facility] [address] [facility] JUDGE 1 / [facility] (Cath) Providers: Darryn Lundy MD Clinical information reviewed: Allergies Meds Physical Exam Airway Mallampati: II TM distance: >3 FB Neck ROM: full Cardiovascular Dental Pulmonary Abdominal Anesthesia Plan ASA 3 CSE Anesthetic plan and risks discussed with patient. Use of blood products discussed with patient who. Additional Equipment Requests [facility] 01-17-2025 Note ---- Attestation signed by Jonnathan [...] Value Ventricular Rate 49 Atrial Rate 49 NC Interval 196 QRS DURATION 82 QT Interval 474 QTC CALCULATION(BAZETT) 428 P Thomson -18 R-Thomson 51 T Wave Thomson 69 Impression Sinus bradycardia Nonspecific ST and T wave abnormality Abnormal ECG When compared with ECG of 16-JAN-2025 14:49, Premature atrial complexes are no longer Present No results found for: CKTOTAL , CKMB , CKMBINDEX , TROPONINI Limited Echo (TTE) w/wo Limited Doppler, Color Flow, Imaging Agent, Strain, 3D, Bubble Study Result Date: 01/16/2025 1 1 [facility] Heart Station [address] [place] [address] [phone] (fax) Echocardiogram-[facility] Name: FLYNN ARNETT Study Date: 01/16/2025 02:51 PM B/P: 117 mmHg/76 mmHg HR: 54 bpm Date of : 1965 Location: [facility] Height: 69 in. Age: [...] left ventricular sy (more content not included)... [facility] 01-17-2025 Note Patient: Flynn kim Procedure Information Date/Time: 01/17/251844 Procedure: Coronary angiography Location: [facility] [address] JUDGE 3 / [facility] (Cath) Providers: Reddy Henry MD Clinical information reviewed: [employer] Meds Physical Exam Airway Mallampati: II TM distance: <3 FB Neck ROM: full Cardiovascular - normal exam Rhythm: regular Dental Pulmonary - normal exam Abdominal - normal exam Anesthesia Plan ASA 3 other (Conscious sedation) Anesthetic plan and risks discussed with patient. Use of blood products discussed with patient who consented to blood products. Additional Equipment Requests [facility] 01-17-2025 Note ---- Attestation signed by Leatha Caceres MD at 01/18/2025 10:12 AM The patient was evaluated with the resident/fellow Flynn Arnett is a 59 y.o. adult with a past medical history of heart failure with preserved ejection fraction, hypertension, mitral valve prolapse with regurgitation s/p mitral valve repair, hyperlipidemia, pql-fdzlvmf-reckzmgni type 2 diabetes, AAA who presents as a transfer from [facility] for chest pain Critical Care services were [...] Arnett Age - 59 y.o. - 1965 [id number] Date of Admission - 01/16/2025 2:24 PM HPI/Hospital Course Subjective Flynn Arnett is a 59 y.o. adult with a past medical history of heart failure with preserved ejection fraction, hypertension, mitral valve prolapse with regurgitation s/p mitral valve repair, hyperlipidemia, fij-hwtoxgl-nernyqrcf type 2 diabetes, AAA who presents as a transfer from [facility]. Patient developed left lower chest pain yesterday, [...] had racing heartbeat. He went to the [facility] with these complaints, where reportedly his heart [...] to 30 bpm. He was transferred to [facility] for higher level of care. At [facility], his heart rate was [...] 61 (L) 83 (more content not included)... [facility] 01-16-2025 Note Tentatively plan nimesh l chamber pacemaker implant tomorrow for symptomatic bradycardia. [facility] 01-16-2025 Note Given chest pain and shortness of breath with modest activity, especially with new bradycardia, plan coronary angiography tomorrow to exclude significant CAD that could explain symptoms and bradycardia. [facility] 12-06-2024 Note LENNIE MEADE CARDIOL OGY PROGRESS NOTE Patient here for [...] Reported on 06/30/2023) 120 capsule 0 HYDROcodone-acetaminophen ([place]) 5-325 mg tablet Take 1 tablet by [...] Mucous membranes are (more content not included)... [facility] 10-27-2024 Note LENNIE MEADE CARDIOL LEILANI PROGRESS [...] takes less th (more content not included)... [facility] 05-10-2023 Evaluation note Encounter Date Diagnosis [...] tomorrow. You may also follow-up with an early childhood specialist if no improvement. Go to the ER for worsening symptoms or concerns May, Left ear impacted cerumen (ICD-10 - H61.22) Cerumen impaction home care material was printed May, Right ear impacted cerumen (ICD-10 - H61.21) [employer] Other 04-07-2023 NoteChief Complaint consultation for umbilical [...] Colt STUART MD, SUR Only if needed [address] [facility] [place] [address]- Additional Instructions: Problem List/Past Medical History Ongoing [...] Tobacco - Denies T (more content not included)...[facility] Comment on above:Result Comment: Electronically Signed By: Colt STUART MD\.br\Date and Time Signed: 01/09/23 15:56 [id number] Hospital Discharge instructions Follow Up Care 12/18/2022 13:20:00 With:Colt STUART MD, SUR Address: [address] [place] [address] [place] [address]- When: only if needed General Surgery [facility] Evaluation + Plan note No data available for this section General Surgery [facility] History general Narrative - Reported* Type Description Date Medical History GERD Medical History HYPERLIPIDEMIA Hospitalization History KNEE CELLULITIS [employer] Other Progress note No data available for this section General Surgery [facility] Summary Purpose Family History No Family History Records FoundNo Family History Records FoundNo Family History Records Found Advance Directives No Advanced Directives Records FoundNo Advanced Directives Records FoundNo Advanced Directives Records Found Additional Source Comments Patient Care team informatio n (unrecognized section and content) Personnel Name: Lauren Velasquez MD Address: Address: [address] [place], [place] [address] (unrecognized sect ion and content) No Status Records FoundNo Status Records FoundNo Status Records Found INFORMATION SOURCE (unrecogn ized section and content) DATE CREATED AUTHOR 01/11/2023 [facility] DATE CREATED AUTHOR AUTHOR'S ORGANIZ ATION 02/13/2023 [facility] DATE CREATED AUTHOR AUTHOR'S ORGANIZ ATION 07/13/2025 [facility] REASON FOR VISIT (unrecogniz ed section and [...] BE BASED ON THE PRIMARY CLINICAL RECORDS. [employer] provides no warranty or guarantee of the accuracy or completeness of information in this document.
[2025-07-19 08:50] LABS: Anion Gap 14.2; Blood Urea Nitrogen 17.0 mg/dL (7.0-18.0); Calcium 8.6 mg/dL (8.5-10.1); Carbon Dioxide 25.9 mmol/L (21.0-32.0); Chloride 106 mmol/L (98-107); Estimated GFR (African America >60 (>=60 mL/min/1.73m^2); Estimated GFR (Non-African Ame 54 (>=60 mL/min/1.73m^2); Glucose 139 mg/dL (74-106); Potassium 4.1 mmol/L (3.5-5.1); Sodium 142 mmol/L (136-145)
== END 2025-07-19 07:59 | disposition home or self-care (01) ==
LOC: LAB 08:01
PROVIDERS: PCP Family Medicine; Visit Provider Family Medicine
DX: R73.09 Other abnormal glucose (principal)
CPT/HCPCS: 36415; 80048; 83036; 83525

== ENCOUNTER 2025-07-21 14:22 | Outpatient (OUT) | payer BC, SELFPAY ==
--- OUTSIDE RECORDS SUMMARY | 2025-07-21 14:24 | XMS_ITS | CCD ---
Author Organization [facility] Care Team Providers Care Predatory Animal Hunter Name Role Phone Lauren Velasquez Primary Care [...] LEATHA Referring Unavailable SAFI, LEATHA Referring Unavailable DARRYN LUNDY Referring Unavailable JASMEETDARRYN Paredes Referring Unavailable DARRYN [...] Range Facility Office Visiton 07-11-2025 Follow-up visit [id number] Watson Arnett 1965 M Date Provider Department Center 07/11/2025 [facility]-DARRYN LUNDY [facility] Deshaun [facility] Family History Problem Relation Age of Onset No Known Problems Mother No Known Problems Father Family Status - Relation Status Age at Mother Father Alive Level of Service:[id number] MD OFFICE/OUTPATIENT ESTABLISHED LOW MDM 20 MIN Normal [facility] 36on 06-13-2025 36 patient called with BP and HR results.BP ranging from 104/89-128/87. HR ranging from 62-77 with one day of HR reaching 119.states he do not particularly feel better than last week with fatigue.states in the morning he's ok but throughout the day he does not feel well.will let know. Normal [facility] Telephoneon 06-13-2025 Telephone [id number] Watson Arnett 1965 M Date Provider Department Center 06/13/2025 April-MINDI VELASCO [facility] VASC LAB [facility] Family History Problem Relation Age of Onset No Known Problems Mother No Known Problems Father Family Status - Relation Status Age at Mother Father Alive Reason for Visit and Comments: BP and HR results [Other] Normal [facility] Telephoneon 06-09-2025 Telephone [id number] Watson Arnett 1965 M Date Provider Department Center 06/09/20251986-MINDI VELASCO [facility] VASC LAB SD [facility]AS Family History Problem Relation Age of Onset No Known Problems Mother No Known Problems Father Family Status - Relation Status Age at Mother Father Alive Reason for Visit and Comments: week f/u post ablation [Other] Normal [facility] BILIRUBIN, DIRECTon 05-31-20 25 Magnesium [Mass/Vol] 0.1 mg/dL Normal 0-0.2 [facility] Comment on above: Performed By: #### L [id number] ####[facility] ([facility])[address] [place] [address] BILIRUBIN, TOTALon 5 Bilirubin [Mass/Vol] 0.6 mg/dL Normal 0.3-1.0 [facility] Comment on above: Performed By: #### L [id number] ####[facility] (BEAKER)[address] [place] [address] HEMOGLOBINon 05-31-2025 Hemoglobin (Bld) [Mass/Vol] 13.3 g/dL Normal 13.0-17.0 [facility] Comment on above: Performed By: #### L [id number] #### [facility] (BEAKER) [address] [place] [address] HIGH SENSITIVITY TROPONIN Io n 05-31-2025 HS TROPONIN I (NG/L) 264 ng/L Critically high <20 [facility] Comment on above: Performed By: #### L [id number] ####[facility] (BEAKER)[address] [place] [address] HPon 05-31-2025 [facility] Electrophysiology Consult Note SD Cardiology [facility] Reason for visit: Device detected A-fib HPI: Flynnchai Arnett is a 59 y.o. year old with past medical history of HFpEF, hypertension, severe MR s/p mitral valve repair/annuloplasty with left atrial appendage clip, PFO closure hyperlipidemia AAA, DM 2 was transferred from [facility] to [facility] with underlying A-fib with RVR. He was placed on Cardizem which resulted in his heart rate dropping to 20 to 30 minutes and subsequent was transferred over to [facility] he underwent a cardiac cath which [...] PMH: Past Medical History: Diagnosis Date Afib ([facility]) Aneurysm Angina pectoris, unstable ([facility]) BMI 36.0-36.9,adult Bradycardia Diabetes mellitus ([facility]) GERD (gastroesophageal reflux disease) Hyperlipidemia Hypertension Mitral valve prolapse 04/2023 NONRHEUMATIC Murmur Pacemaker Restless leg syndrome Sick sinus syndrome ([facility]) PSH: Past Surgical History: Procedure Laterality Date [...] Year: No Utilities: Not At Risk (01/16/2025) [facility] Utilities Threatened with loss of utilities: No [...] as directed. 90 capsule 3 HYDROcodone-acetaminop hen ([place]) 5-325 mg tablet Take 1 tablet by [...] venous p (more content not included)... Normal [facility] LACTATE DEHYDROGENASEon 05-06 LACTATE DEHYDROGENASE (U/L) IN SER/PLAS BY LAC->PYR RXN 171 U/L Normal 140-271 [facility] Comment on above: Performed By: #### L [id number] #### [facility] ([facility]ER) [address] [place] [address] NURSNOTEon 05-31-[address] [facility]. Stated pt could be discharged to home. Normal [facility] NURSNOTE Discharge instructio ns discussed with pt and pt's . Stated understanding. Normal [facility] NURSNOTE Patient to preop bay _6_. Patient instructed to remove all clothing and how to use CHG wipes. Patient states understanding. No questions or concerns about pre op. [facility] POCT GLUCOSE METER UNSOLICIT ED RESULTSon 05-31-2025 Glucose [Mass/Vol] 110 mg/dL High 70-105 [facility] Comment on above: Order Comment: Waive d Testing in the ED is performed under the ED CLIA certificate #[id number]. Result Comment: ngro shane Performed By: #### L [id number] ####[facility] (BE[facility]ER)[address] [place] [address] PROTIME-INRon 05-31-2025 INR IN PPP BY COAGULATION ASSAY 1.03 Normal 0.90-1.10 [facility] Comment on above: Result Comment: ACCC [...] CHEST 1995;108:[id number]-246S. Performed By: #### L [id number] ####[facility] (BE[facility]ER)[address] [place] [address] PROTHROMBIN TIME (PT) IN PPP BY COAGULATION ASSAY 13.5 Seconds Normal 12.3-14.8 [facility] Comment on above: Performed By: #### L [id number] ####[facility] ([facility]ER)[address] [place] [address] Prep for Procedureon 025 Prep for Procedure [id number] Watson Arnett 1965 M Date Provider Department Center 05/31/20251986-MINDI VELASCO [facility] Family History Problem Relation Age of Onset No Known Problems Mother No Known Problems Father Family Status - Relation Status Age at Mother Father Alive Normal [facility] 36on 05-23-2025 36 Order entered and faxed to [facility] to be done 1 month s/p afib ablation on 05/31/2025. Normal [facility] 36 Spoke with patient maria de jesus nd got him scheduled for follow up afib ablation and repeat echo in 1 month. Would you like limited echo? Or another complete? Normal [facility] 36 Regarding echo resul t from 05/23/2025: Adonis Jacob MD to Vt 05/23/25 12:20 PM His EF has dropped [...] we may need additional testing Thanks. Normal [facility] Orders Onlyon 05-23-2025 Orders Only [id number] Watson Arnett 1965 [facility] Provider Department Center 05/23/2025 [id number], HISTORICAL CARD [facility] Family History Problem Relation Age of Onset No Known Problems Mother No Known Problems Father Family Status - Relation Status Age at Mother Father Alive Normal [facility] Orders Onlyon 05-19-2025 Orders Only [id number] Watson Arnett 1965 [facility] Department Center 05/19/2025 DARRYN FATIMA [facility] CARD SD HeartVAS Family History Problem Relation Age of Onset No Known Problems Mother No Known Problems Father Family Status - Relation Status Age at Mother Father Alive [facility] POCT GLUCOSE METER UNSOLICIT ED RESULTSon 05-10-2025 Glucose [Mass/Vol] 124 mg/dL High 70-[address] [facility] Comment on above: Order Comment: Waive d Testing in the ED is performed under the ED CLIA certificate #[id number]. Result Comment: ltol les Performed By: #### L [id number] #### [facility] HOSPITAL LAB (BEAKER) [address] [place] [address] Prep for Procedureon 025 Prep for Procedure [id number] Watson Arnett M 1965 M Date Provider Department Center 03/30/20251986-MINDI VELASCO C VASC LAB [facility] Family History Problem Relation Age of Onset No Known Problems Mother No Known Problems Father Family Status - Relation Status Age at Mother Father Alive Normal [facility] Prep for Procedureon 025 Prep for Procedure [id number] Watson Arnett M 1965 M Date Provider Department Center 03/24/20251986-MINDI VELASCO [facility] VASC LAB [facility] Family History Problem Relation Age of Onset No Known Problems Mother No Known Problems Father Family Status - Relation Status Age at Mother Father Alive [facility] Follow-Upon 03-07-2025 Follow-Up [id number] Watson Arnett addison 1965 Provider Department Center 03/07/2025 DARRYN FATIMA CARD [facility] Family History Problem Relation Age of Onset No Known Problems Mother No Known Problems Father Family Status - Relation Status Age at Mother Father Alive Level of Service:[id number] MD OFFICE/OUTPATIENT NEW MODERATE MDM 45 MINUTES [facility] 02-22-2025 36 Patient called back very upset that his call from Tuesday 02/20 was not returned. I advised him of medication changes and they were sent into his pharmacy. He has follow up apt with Dr. Lundy on 03/07/2025. Patient verbalized understanding. [facility] 02-21-2025 36 We can start him on diltiazem 120mg daily to try to help control his HR. While this can also affect BP, would like to change carvedilol to Toprol 25mg daily to try to help prevent low BP. He should monitor his BP and HR 2 hours after medications and bring in readings to his next visit. [facility] Orders Only02-17-2025 Orders Only [id number] David,Watson jaime 1965 Provider Department [place] 02/17/2025 DARRYN FATIMA [facility] CARD SD HeartVAS Family History Problem Relation Age of Onset No Known Problems Mother No Known Problems Father Family Status - Relation Status Age at Mother Father [facility] 02-03-2025 36 Patient informed. I also told him he could take an extra dose of carvedilol (3.125mg) if he felt his heart race again. Says about 1 hour after he spoke with me yesterday he started to feel fine again. Has felt fine today also. Advised patient to go to the ED if symptoms worsen. He verbalized understanding. [facility] 02-02-2025 36 Patient called to horace valente [...] report to the ED. Any suggestions? Thanks. [facility] Office Visiton 01-31-2025 Follow-up visit [id number] Watson Arnett 1965 M Date Provider Department Center 01/31/2025 271-ADONIS JACOB CARD [facility] Family History Problem Relation Age of Onset No Known Problems Mother No Known Problems Father Family Status - Relation Status Age at Mother Father Level of Service:[id number] MD OFFICE/OUTPATIENT ESTABLISHED MOD MDM 30 MIN [facility] 30on 01-18-2025 30 Daily Case Managemen t [...] PT Recommendations: OT Recommendations: New Consults: Normal [facility] BASIC METABOLIC PANELon 01-03 Anion gap [Moles/Vol] 10 mmol/L Normal - [facility] Comment on above: Performed By: #### L AB15 ####[facility] (BE[facility]ER)[address] [place] [address] Calcium [Mass/Vol] 8.2 mg/dL Low 8.6-10.3 [facility] Comment on above: Performed By: #### L AB15 ####[facility] ([facility])[address] [place] [address] Chloride [Moles/Vol] 106 mmol/L Normal 98-107 [facility] Comment on above: Performed By: #### L AB15 ####[facility] ([facility])[address] [address] CO2 [Moles/Vol] 24 mmol/L Normal 21-31 [facility] Comment on above: Performed By: #### L [id number] ####[facility] ([facility])[address] [place] [address] Creatinine [Mass/Vol] 1.24 mg/dL Normal 0.60-1.30 [facility] Comment on above: Performed By: #### L AB15 ####[facility] ([facility])[address] [place] [address] GLOMERULAR FILTRATION RATE ML/MIN/1.73 SQ M.PREDICTED 50.8 mL/min/1.73m*2 Low >60.0 [facility] Comment on above: Result Comment: The [facility]???s estimated glomerular filtration rate (eGFR) will [...] of individuals. Performed By: #### L AB15 ####[facility] ([facility])[address] [place] [address] Glucose [Mass/Vol] 128 mg/dL High 70-100 [facility] Comment on above: Performed By: #### L AB15 ####[facility] ([facility])[address] [address] Potassium [Moles/Vol] 4.0 mmol/L Normal 3.5-5.1 [facility] Comment on above: Performed By: #### L [id number] ####[facility] ([facility])[address] [place] [address] Sodium [Moles/Vol] 136 mmol/L Normal 136-145 [facility] Comment on above: Performed By: #### L [id number] ####[facility] ([facility])[address] [place] [address] Urea nitrogen [Mass/Vol] 16 mg/dL Normal 7-25 [facility] Comment on above: Performed By: #### L [id number] ####[facility] ([facility])[address] [place] [address] UREA NITROGEN/CREATININE (MASS RATIO) IN SER/PLAS 12.9 Normal [facility] Comment on above: Performed By: #### L [id number] ####[facility] ([facility])[address] [place] [address] CBC WITH AUTO DIFFERENTIALon 01-18-2025 Basophils (Bld) [#/Vol] 0.03 10*3/uL Normal 0.00-0.20 [facility] Comment on above: Performed By: #### L [id number] #### [facility] ([facility]) [address] [place] [address] Basophils/100 WBC (Bld) 0.4 % Normal 0.0-1.0 [facility] Comment on above: Performed By: #### L [id number] #### [facility] ([facility]) [address] [address] Eosinophils (Bld) [#/Vol] 0.20 10*3/uL Normal 0.00-0.50 [facility] Comment on above: Performed By: #### L [id number] #### [facility] ([facility]) [address] [place] [address] Eosinophils/100 WBC (Bld) 2.6 % Normal 0.0-6.0 [facility] Comment on above: Performed By: #### L [id number] #### [facility] ([facility]) [address] [address] Erythrocyte distribution width (RBC) [Ratio] 14.6 % Normal 11.5-15.0 [facility] Comment on above: Performed By: #### L [id number] #### [facility] ([facility]) [address] [place] [address] ERYTHROCYTE MEAN CORPUSCULAR HEMOGLOBIN CONCENTRATION (G/DL) BY AUTOMATED 33.3 g/dL Normal 32.0-35.0 [facility] Comment on above: Performed By: #### L [id number] #### [facility] ([facility]) [address] [address] Hematocrit (Bld) [Volume fraction] 45.0 % Normal 36.0-50.0 [facility] Comment on above: Performed By: #### L [id number] #### [facility] ([facility]) [address] [address] Hemoglobin (Bld) [Mass/Vol] 15.0 g/dL Normal 12.0-17.0 [facility] Comment on above: Performed By: #### L [id number] #### [facility] ([facility]) [address] [address] Immature granulocytes (Bld) [#/Vol] 0.01 10*3/uL Normal 0.00-0.20 [facility] Comment on above: Performed By: #### L [id number] #### [facility] ([facility]) [address] [address] Immature granulocytes/100 WBC (Bld) 0.1 % Normal 0.0-1.0 [facility] Comment on above: Performed By: #### L [id number] #### [facility] ([facility]) [address] [address] Lymphocytes (Bld) [#/Vol] 1.73 10*3/uL Normal 1.20-4.00 [facility] Comment on above: Performed By: #### L [id number] #### [facility] (BEAKER) [address] [place] [address] Lymphocytes/100 WBC (Bld) 22.7 % Normal 20.0-45.0 [facility] Comment on above: Performed By: #### L [id number] #### [facility] ([facility]) [address] [address] MCH (RBC) [Entitic mass] 27.1 pg Normal 27.0-33.0 [facility] Comment on above: Performed By: #### L [id number] #### [facility] ([facility]) [address] [place] [address] MCV (RBC) [Entitic vol] 81.2 fL Low 82.0-98.0 [facility] Comment on above: Performed By: #### L [id number] #### [facility] ([facility]) [address] [place] [address] Monocytes (Bld) [#/Vol] 0.71 10*3/uL Normal 0.10-1.00 [facility] Comment on above: Performed By: #### L [id number] #### [facility] ([facility]) [address] [place] [address] Monocytes/100 WBC (Bld) 9.3 % Normal 5.0-12.0 [facility] Comment on above: Performed By: #### L [id number] #### [facility] ([facility]) [address] [place] [address] Neutrophils (Bld) [#/Vol] 4.95 10*3/uL Normal 1.60-7.60 [facility] Comment on above: Performed By: #### L [id number] #### [facility] ([facility]) [address] [place] [address] Neutrophils/100 WBC (Bld) 64.9 % Normal 40.0-72.0 [facility] Comment on above: Performed By: #### L [id number] #### [facility] ([facility]) [address] [place] [address] NRBC (PER 100 WBCS) BY AUTOMATED COUNT 0.0 % Normal 0 [facility] Comment on above: Performed By: #### L [id number] #### [facility] ([facility]) [address] [place] [address] PLATELETS (10*3/UL) IN BLOOD AUTOMATED COUNT 219 10*3/uL Normal 150-400 [facility] Comment on above: Performed By: #### L [id number] #### [facility] ([facility]) [address] [address] RBC (Bld) [#/Vol] 5.54 10*6/uL Normal 3.80-5.70 [facility] Comment on above: Performed By: #### L [id number] #### [facility] ([facility]) [address] [address] WBC (Bld) [#/Vol] 7.63 10*3/uL Normal 4.00-10.60 [facility] Comment on above: Performed By: #### L [id number] #### [facility] ([facility]) [address] [address] DSon 01-18-2025 DS -- Attestation signed by Leatha Caceres MD at 01/20/2025 12:31 PM Patient was seen and examined with the resident on the same date of service, I discussed the findings and therapeutic plan with the resident/fellow, I agree with the documentation, assessment and plan as above except for any edits/updates below. Leatha Caceres MD occupational medicine specialist Pulmonary and critical care department [id number] Admission Admitted 01/16/2025 for Bradycardia Discharge Diagnosis Primary Symptomatic severe sinus bradycardia Shock, cardiogenic from bradycardia arrhythmias Unstable angina Tachybrady syndrome Secondary Heart failure with preserved ejection fraction Mitral valve prolapse with regurgitation s/p mitral valve repair Essential hypertension Dno-qbcufkv-gfrpdamzx type 2 diabetes mellitus Discharge Disposition Home [...] hen 5-325 mg tablet Commonly known as: [place] lisinopril 10 mg tablet Take 1 tablet (10 mg) by mouth in the morning. pantoprazole 40 mg EC tablet Commonly known as: ProtoNix simvastatin 20 mg tablet Commonly known as: Zocor Where to Get Your Medications These medications were sent to [facility] - [place], [place] - [address] [place] [address], [facility] [address] apixaban 5 mg tablet Activity Normal activity as tolerated Diet Patient currently has no discharge diet orders Allergies Patient has no known allergies. Hospital Course Flynn Arnett is a 59 y.o. adult with a past medical history of heart failure with preserved ejection fraction, hypertension, mitral valve prolapse with regurgitation s/p mitral valve repair, hyperlipidemia, zya-shynyua-utoyxnldg type 2 diabetes, AAA who presents as a transfer from [facility]. Patient developed left lower chest pain [...] had racing heartbeat. He went to the [facility] with these complaints, where reportedly his [...] to 30 bpm. He was transferred to [facility] for higher level of care. At [facility], his heart rate was at his [...] discharge, libia (more content not included)... Normal [facility] Letter (Out)on 01-18-2025 Letter (Out) [id number] Watson Arnett 1965 M Date Provider Department Center 01/18/2025 [id number], GENERIC PRO*INIT None Family History Problem Relation Age of Onset No Known Problems Mother No Known Problems Father Family Status - Relation Status Age at Mother Father Normal [facility] MAGNESIUMon 01-18-2025 Magnesium [Mass/Vol] 2.0 mg/dL Normal 1.9-2.7 [facility] Comment on above: Performed By: #### L [id number] #### [facility] ([facility]) [address] [place] [address] PHOSPHORUSon 01-18-2025 Magnesium [Mass/Vol] 3.8 mg/dL Normal 2.5-5.0 [facility] Comment on above: Performed By: #### L [id number] ####[facility] ([facility])[address] [place] [address] POCT GLUCOSE METER UNSOLICIT ED RESULTSon 01-18-2025 Glucose [Mass/Vol] 168 mg/dL High 70-105 [facility] Comment on above: Order Comment: Waive d Testing in the ED is performed under the ED CLIA certificate #[id number]. Result Comment: bmen [email or web address] Performed By: #### L [id number] ####[facility] ([facility])[address] [place] [address] 30on 01-17-2025 30 Daily Case Managemen t Update Multidisciplinary rounds have been completed. Barriers to Discharge: 01/17- patient with cardiac history, TVAR 2 yeara ago, was [facility], was in afib RVR, had episode of significant bradycardia (20s), HR ultimately came up to 40s, plan is for cath and possible pacer today. Plan is home no needs. cb Diet: Dietary Orders (From admission, onward) Start Ordered 01/17/25 0001 Diet NPO Diet effective midnight Comments: Sips with medications Question: Reason for NPO: Answer: Operation/Procedure 01/16/25 3915 Physician Expected Discharge Date: 01/21/2025 Discharge Delays: PT Six Click Score: OT Six Click Score: PT Recommendations: OT Recommendations: New Consults: Normal [facility] BASIC METABOLIC PANELon 01-03 Anion gap [Moles/Vol] 9 mmol/L Normal 7-20 [facility] Comment on above: Performed By: #### L AB15 ####[facility] ([facility])[address] [address] Calcium [Mass/Vol] 8.2 mg/dL Low 8.6-10.3 [facility] Comment on above: Performed By: #### L AB15 ####[facility] ([facility])[address] [address] Chloride [Moles/Vol] 109 mmol/L High 98-107 [facility] Comment on above: Performed By: #### L AB15 ####[facility] ([facility])[address] [place] [address] CO2 [Moles/Vol] 24 mmol/L Normal 21-31 [facility] Comment on above: Performed By: #### L AB15 ####[facility] ([facility])[address] [address] Creatinine [Mass/Vol] 1.24 mg/dL Normal 0.60-1.30 [facility] Comment on above: Performed By: #### L AB15 ####[facility] ([facility])[address] [address] GLOMERULAR FILTRATION RATE ML/MIN/1.73 SQ M.PREDICTED 50.8 mL/min/1.73m*2 Low >60.0 [facility] Comment on above: Result Comment: The [facility]???s estimated glomerular filtration rate (eGFR) will [...] of individuals. Performed By: #### L [id number] ####[facility] ([facility])[address] [place] [address] Glucose [Mass/Vol] 120 mg/dL High 70-100 [facility] Comment on above: Performed By: #### L [id number] ####[facility] ([facility])[address] [place] [address] Potassium [Moles/Vol] 4.1 mmol/L Normal 3.5-5.1 [facility] Comment on above: Performed By: #### L [id number] ####[facility] ([facility])[address] [place] [address] Sodium [Moles/Vol] 138 mmol/L Normal 136-145 [facility] Comment on above: Performed By: #### L [id number] ####[facility] ([facility])[address] [place] [address] Urea nitrogen [Mass/Vol] 15 mg/dL Normal 7-25 [facility] Comment on above: Performed By: #### L [id number] ####[facility] ([facility])[address] [place] [address] UREA NITROGEN/CREATININE (MASS RATIO) IN SER/PLAS 12.1 Normal [facility] Comment on above: Performed By: #### L [id number] ####[facility] ([facility])[address] [place] [address] CBC WITH AUTO DIFFERENTIALon 01-17-2025 Basophils (Bld) [#/Vol] 0.03 10*3/uL Normal 0.00-0.20 [facility] Comment on above: Performed By: #### L [id number] #### [facility] ([facility]) [address] [place] [address] Basophils/100 WBC (Bld) 0.4 % Normal 0.0-1.0 [facility] Comment on above: Performed By: #### L [id number] #### [facility] ([facility]) [address] [place] [address] Eosinophils (Bld) [#/Vol] 0.26 10*3/uL Normal 0.00-0.50 [facility] Comment on above: Performed By: #### L [id number] #### [facility] ([facility]) [address] [place] [address] Eosinophils/100 WBC (Bld) 3.8 % Normal 0.0-6.0 [facility] Comment on above: Performed By: #### L [id number] #### [facility] ([facility]) [address] [place] [address] Erythrocyte distribution width (RBC) [Ratio] 14.6 % Normal 11.5-15.0 [facility] Comment on above: Performed By: #### L [id number] #### [facility] ([facility]) [address] [place] [address] ERYTHROCYTE MEAN CORPUSCULAR HEMOGLOBIN CONCENTRATION (G/DL) BY AUTOMATED 31.7 g/dL Low 32.0-35.0 [facility] Comment on above: Performed By: #### L [id number] #### [facility] ([facility]) [address] [place] [address] Hematocrit (Bld) [Volume fraction] 43.9 % Normal 36.0-50.0 [facility] Comment on above: Performed By: #### L [id number] #### [facility] ([facility]) [address] [place] [address] Hemoglobin (Bld) [Mass/Vol] 13.9 g/dL Normal 12.0-17.0 [facility] Comment on above: Performed By: #### L [id number] #### [facility] ([facility]) [address] [place] [address] Immature granulocytes (Bld) [#/Vol] 0.02 10*3/uL Normal 0.00-0.20 [facility] Comment on above: Performed By: #### L [id number] #### [facility] ([facility]) [address] [place] [address] Immature granulocytes/100 WBC (Bld) 0.3 % Normal 0.0-1.0 [facility] Comment on above: Performed By: #### L [id number] #### [facility] ([facility]) [address] [address] Lymphocytes (Bld) [#/Vol] 1.91 10*3/uL Normal 1.20-4.00 [facility] Comment on above: Performed By: #### L [id number] #### [facility] ([facility]) [address] [address] Lymphocytes/100 WBC (Bld) 28.2 % Normal 20.0-45.0 [facility] Comment on above: Performed By: #### L [id number] #### [facility] ([facility]) [address] [place] [address] MCH (RBC) [Entitic mass] 27.0 pg Normal 27.0-33.0 [facility] Comment on above: Performed By: #### L [id number] #### [facility] ([facility]) [address] [place] [address] MCV (RBC) [Entitic vol] 85.4 fL Normal 82.0-98.0 [facility] Comment on above: Performed By: #### L [id number] #### [facility] ([facility]) [address] [place] [address] Monocytes (Bld) [#/Vol] 0.54 10*3/uL Normal 0.10-1.00 [facility] Comment on above: Performed By: #### L [id number] #### [facility] ([facility]) [address] [place] [address] Monocytes/100 WBC (Bld) 8.0 % Normal 5.0-12.0 [facility] Comment on above: Performed By: #### L [id number] #### [facility] ([facility]) [address] [place] [address] Neutrophils (Bld) [#/Vol] 4.01 10*3/uL Normal 1.60-7.60 [facility] Comment on above: Performed By: #### L [id number] #### [facility] ([facility]) [address] [place] [address] Neutrophils/100 WBC (Bld) 59.3 % Normal 40.0-72.0 [facility] Comment on above: Performed By: #### L [id number] #### [facility] ([facility]) [address] [address] NRBC (PER 100 WBCS) BY AUTOMATED COUNT 0.0 % Normal 0 [facility] Comment on above: Performed By: #### L [id number] #### [facility] ([facility]) [address] [address] PLATELETS (10*3/UL) IN BLOOD AUTOMATED COUNT 198 10*3/uL Normal 150-400 [facility] Comment on above: Performed By: #### L [id number] #### [facility] ([facility]) [address] [place] [address] RBC (Bld) [#/Vol] 5.14 10*6/uL Normal 3.80-5.70 [facility] Comment on above: Performed By: #### L [id number] #### [facility] ([facility]) [address] [address] WBC (Bld) [#/Vol] 6.77 10*3/uL Normal 4.00-10.60 [facility] Comment on above: Performed By: #### L [id number] #### [facility] ([facility]) [address] [place] [address] HPon 01-17-2025 HP H&P reviewed. The patient was examined and there are no changes to the H&P. Normal [facility] MAGNESIUMon 01-17-2025 Magnesium [Mass/Vol] 2.0 mg/dL Normal 1.9-2.7 [facility] Comment on above: Performed By: #### L [id number] ####[facility] ([facility])[address] [place] [address] PHOSPHORUSon 01-17-2025 Magnesium [Mass/Vol] 3.4 mg/dL Normal 2.5-5.0 [facility] Comment on above: Performed By: #### L [id number] ####[facility] ([facility])[address] [place] [address] POCT GLUCOSE METER UNSOLICIT ED RESULTSon 01-17-2025 Glucose [Mass/Vol] 153 mg/dL High 70-105 [facility] Comment on above: Order Comment: Waive d Testing in the ED is performed under the ED CLIA certificate #[id number]. Result Comment: dmcn eal Performed By: #### L [id number] #### [facility] ([facility]) [address] [place] [address] Glucose [Mass/Vol] 89 mg/dL Normal 70-105 [facility] Comment on above: Order Comment: Waive d Testing in the ED is performed under the ED CLIA certificate #[id number]. Result Comment: [email or web address] Performed By: #### L [id number] #### [facility] ([facility]) [address] [place] [address] 30on 01-16-2025 30 The patient is Moderately [...] emotional support, repositioning, music therapy, distraction. Normal [facility] BLOOD CULTUREon 01-16-2025 Bacteria identified Cx Nom (Bld) No growth at 5 days Normal [facility] Comment on above: Performed By: #### L [id number] ####[facility] ([facility])[address] [place] [address] Order Comment: From a different site than #1. CBC WITH AUTO DIFFERENTIALon 01-16-2025 Basophils (Bld) [#/Vol] 0.02 10*3/uL Normal 0.00-0.20 [facility] Comment on above: Performed By: #### L [id number] ####[facility] ([facility])[address] [place] [address] Basophils/100 WBC (Bld) 0.3 % Normal 0.0-1.0 [facility] Comment on above: Performed By: #### L [id number] ####[facility] ([facility])[address] [place] [address] Eosinophils (Bld) [#/Vol] 0.23 10*3/uL Normal 0.00-0.50 [facility] Comment on above: Performed By: #### L [id number] ####[facility] ([facility])[address] [address] Eosinophils/100 WBC (Bld) 3.6 % Normal 0.0-6.0 [facility] Comment on above: Performed By: #### L [id number] ####[facility] ([facility])[address] [address] Erythrocyte distribution width (RBC) [Ratio] 14.8 % Normal 11.5-15.0 [facility] Comment on above: Performed By: #### L [id number] ####[facility] ([facility])[address] [place] [address] ERYTHROCYTE MEAN CORPUSCULAR HEMOGLOBIN CONCENTRATION (G/DL) BY AUTOMATED 32.4 g/dL Normal 32.0-35.0 [facility] Comment on above: Performed By: #### L [id number] ####[facility] ([facility])[address] [place] [address] Hematocrit (Bld) [Volume fraction] 43.5 % Normal 36.0-50.0 [facility] Comment on above: Performed By: #### L [id number] ####[facility] ([facility])[address] [place] [address] Hemoglobin (Bld) [Mass/Vol] 14.1 g/dL Normal 12.0-17.0 [facility] Comment on above: Performed By: #### L [id number] ####[facility] ([facility])[address] [place] [address] Immature granulocytes (Bld) [#/Vol] 0.02 10*3/uL Normal 0.00-0.20 [facility] Comment on above: Performed By: #### L [id number] ####[facility] ([facility])[address] [address] Immature granulocytes/100 WBC (Bld) 0.3 % Normal 0.0-1.0 [facility] Comment on above: Performed By: #### L [id number] ####[facility] ([facility])[address] [address] Lymphocytes (Bld) [#/Vol] 1.86 10*3/uL Normal 1.20-4.00 [facility] Comment on above: Performed By: #### L [id number] ####[facility] ([facility])[address] [address] Lymphocytes/100 WBC (Bld) 28.8 % Normal 20.0-45.0 [facility] Comment on above: Performed By: #### L [id number] ####[facility] ([facility])[address] [place] [address] MCH (RBC) [Entitic mass] 27.3 pg Normal 27.0-33.0 [facility] Comment on above: Performed By: #### L [id number] ####[facility] ([facility])[address] [address] MCV (RBC) [Entitic vol] 84.1 fL Normal 82.0-98.0 [facility] Comment on above: Performed By: #### L [id number] ####[facility] ([facility])[address] [place] [address] Monocytes (Bld) [#/Vol] 0.54 10*3/uL Normal 0.10-1.00 [facility] Comment on above: Performed By: #### L [id number] ####[facility] ([facility])[address] [address] Monocytes/100 WBC (Bld) 8.4 % Normal 5.0-12.0 [facility] Comment on above: Performed By: #### L [id number] ####[facility] ([facility])[address] [address] Neutrophils (Bld) [#/Vol] 3.78 10*3/uL Normal 1.60-7.60 [facility] Comment on above: Performed By: #### L [id number] ####[facility] ([facility])[address] [address] Neutrophils/100 WBC (Bld) 58.6 % Normal 40.0-72.0 [facility] Comment on above: Performed By: #### L [id number] ####[facility] ([facility])[address] [place] [address] NRBC (PER 100 WBCS) BY AUTOMATED COUNT 0.0 % Normal 0 [facility] Comment on above: Performed By: #### L [id number] ####[facility] ([facility])[address] [address] PLATELETS (10*3/UL) IN BLOOD AUTOMATED COUNT 215 10*3/uL Normal 150-400 [facility] Comment on above: Performed By: #### L [id number] ####[facility] ([facility])[address] [address] RBC (Bld) [#/Vol] 5.17 10*6/uL Normal 3.80-5.70 [facility] Comment on above: Performed By: #### L [id number] ####[facility] ([facility])[address] [address] WBC (Bld) [#/Vol] 6.45 10*3/uL Normal 4.00-10.60 [facility] Comment on above: Performed By: #### L [id number] ####[facility] ([facility])[address] [address] COMPREHENSIVE METABOLIC PANE Renny 01-16-2025 Albumin [Mass/Vol] 3.8 g/dL Normal 3.5-5.7 [facility] Comment on above: Performed By: #### L [id number] #### [facility] ([facility]) [address] [place] [address] ALP [Catalytic activity/Vol] 47 U/L Normal 34-104 [facility] Comment on above: Performed By: #### L [id number] #### [facility] ([facility]) [address] [place] [address] ALT [Catalytic activity/Vol] 21 U/L Normal 7-52 [facility] Comment on above: Performed By: #### L [id number] #### [facility] ([facility]) [address] [place] [address] Anion gap [Moles/Vol] 10 mmol/L Normal 7-20 [facility] Comment on above: Performed By: #### L [id number] #### [facility] ([facility]) [address] [place] [address] AST [Catalytic activity/Vol] 18 U/L Normal 13-39 [facility] Comment on above: Performed By: #### L [id number] #### [facility] ([facility]) [address] [place] [address] Bilirubin [Mass/Vol] 0.8 mg/dL Normal 0.3-1.0 [facility] Comment on above: Performed By: #### L [id number] #### [facility] ([facility]) [address] [place] [address] Calcium [Mass/Vol] 8.3 mg/dL Low 8.6-10.3 [facility] Comment on above: Performed By: #### L [id number] #### [facility] ([facility]) [address] [place] [address] Chloride [Moles/Vol] 111 mmol/L High 98-107 [facility] Comment on above: Performed By: #### L [id number] #### [facility] ([facility]) [address] [place] [address] CO2 [Moles/Vol] 22 mmol/L Normal 21-31 [facility] Comment on above: Performed By: #### L [id number] #### [facility] ([facility]) [address] [place] [address] Creatinine [Mass/Vol] 1.12 mg/dL Normal 0.60-1.30 [facility] Comment on above: Performed By: #### L [id number] #### [facility] ([facility]) [address] [place] [address] GLOMERULAR FILTRATION RATE ML/MIN/1.73 SQ M.PREDICTED 57.4 mL/min/1.73m*2 Low >60.0 [facility] Comment on above: Result Comment: [facility]???s estimated glomerular filtration rate (eGFR) will [...] individuals. Performed By: #### L [id number] #### [facility] ([facility]) [address] [address] Glucose [Mass/Vol] 97 mg/dL Normal 70-100 [facility] Comment on above: Performed By: #### L [id number] #### [facility] ([facility]) [address] [place] [address] Potassium [Moles/Vol] 4.1 mmol/L Normal 3.5-5.1 [facility] Comment on above: Performed By: #### L [id number] #### [facility] ([facility]) [address] [place] [address] Protein [Mass/Vol] 5.9 g/dL Low 6.0-8.3 [facility] Comment on above: Performed By: #### L [id number] #### [facility] ([facility]) [address] [address] Sodium [Moles/Vol] 139 mmol/L Normal 136-145 [facility] Comment on above: Performed By: #### L [id number] #### [facility] ([facility]) [address] [place] [address] Urea nitrogen [Mass/Vol] 16 mg/dL Normal 7-25 [facility] Comment on above: Performed By: #### L [id number] #### [facility] ([facility]) [address] [place] [address] UREA NITROGEN/CREATININE (MASS RATIO) IN SER/PLAS 14.3 Normal [facility] Comment on above: Performed By: #### L [id number] #### [facility] ([facility]) [address] [place] [address] CONSULTon 01-16-2025 CONSULT Cardiology Consult Note Reason for Consult: bradycardia, chest pain HPI: Flynn Arnett is a 59 y.o. adult with a past medical history heart failure with preserved ejection fraction, hypertension, severe MR s/p mitral valve repair/annuloplasty, left atrial appendage clip, PFO closure, hyperlipidemia, AAA, DM2 who presents as a transfer from [facility]. Patient reports left-sided chest pain which [...] for his mitral valve. Patient presented to [facility] with these complaints and was found [...] to 30 bpm. He was transferred to [facility] for higher level of care. At [facility], his heart rate was at his [...] mg, oral, 2 times daily HYDROcodone-acetaminop hen ([place]) 5-325 mg tablet 1 tablet, oral, Every [...] on 06/30/2023) 120 capsule 0 HYDROcodone-acetaminop hen ([place]) 5-325 mg tablet Take 1 tablet by mouth every 4 (four) hours if needed. lisinopril 10 mg tablet Take 1 tablet (10 mg) by mouth in the morning. (Patient taking differ (more content not included)... Normal [facility] HEMOGLOBIN A1Con 01-16-2025 Glucose [Mass/Vol] 143 mg/dL Normal [facility] Comment on above: Performed By: #### L [id number] #### [facility] ([facility]) [address] [facility] [place] [address] HbA1c (Bld) [Mass fraction] 6.6 % High 4.0-6.0 [facility] Comment on above: Performed By: #### L [id number] #### [facility] ([facility]) [address] [place] [address] HIGH SENSITIVITY TROPONIN Io n 01-16-2025 HS TROPONIN I (NG/L) 54 ng/L Critically high <18 [facility] Comment on above: Performed By: #### L [id number] #### [facility] ([facility]) [address] [place] [address] HS TROPONIN I (NG/L) 55 ng/L Critically high <18 [facility] Comment on above: Performed By: #### L [id number] #### [facility] ([facility]) [address] [place] [address] HPon 01-16-2025 HP Reason For Consult chest pain, sinus leann, new onset afib Referring Provider: Lauren Velasquez MD, [facility] History Of Present Illness Flynn Arnett is a 59 y.o. adult presenting with bradycardia and chest pain. He states for several months now he has been limited physically, especially while climbing stairs He can do 5-10 and then has to stop due to SOB and chest discomfort that is non-radiating, mild in severity, and relieved with rest. In [facility] ER, above noted and he was [...] on 06/30/2023) 120 capsule 0 HYDROcodone-acetaminop hen ([place]) 5-325 mg tablet Take 1 tablet by [...] Final Atrial Rate 01/16/2025 49 BPM Final MD Interval 01/16/2025 190 ms Final QRS DURATION 01/16/2025 84 ms Final QT Interval 01/16/2025 480 ms Final QTC CALCULATION([place]ET[place]) 01/16/2025 433 ms Final R-[place] 01/16/2025 47 degrees Final T Wave [place] 01/16/2025 71 degrees Final Sodium 01/16/2025 139 136 - 145 mmol/L Final Potassium 01/16/2025 4.1 3.5 - 5.1 mmol/L Final Chloride 0 (more content not included)... [facility] -- Attestation signed by Leatha Caceres MD at 01/17/2025 10:12 AM The patient was evaluated with the resident/fellow Flynn Arnett is a 59 y.o. adult with a past medical history of heart failure with preserved ejection fraction, hypertension, mitral valve prolapse with regurgitation s/p mitral valve repair, hyperlipidemia, pno-zvnixsr-xngxbyaom type 2 diabetes, AAA who presents as a transfer from [facility] for chest pain Critical Care services [...] with regurgitation s/p mitral valve repair, hyperlipidemia, tcu-zzlbygb-ksjzutgng type 2 diabetes, AAA who presents as a transfer from [facility]. Patient developed left lower chest pain [...] had racing heartbeat. He went to the [facility] with these complaints, where reportedly his [...] to 30 bpm. He was transferred to [facility] for higher level of care. At [facility], his heart rate was at his [...] Soft, nontender, (more content not included)... Normal [facility] LACTIC ACID WITH 4 HOUR REFL EXon 01-16-2025 LACTATE (MMOL/L) IN SER/PLAS 0.7 mmol/L Normal 0.5-2.2 [facility] Comment on above: Performed By: #### L [id number] ####[facility] ([facility])[address] [place] [address] LIPID PANELon 01-16-2025 CHOL/HDL 5.3 mg/dL Normal [facility] Comment on above: Performed By: #### L [id number] #### [facility] ([facility]) [address] [place] [address] Cholesterol [Mass/Vol] 169 mg/dL Normal 120-200 [facility] Comment on above: Performed By: #### L [id number] #### [facility] ([facility]) [address] [place] [address] Magnesium [Mass/Vol] 103 mg/dL Normal <150 [facility] Comment on above: Result Comment: TRIG LYCERIDE REFERENCE RANGE: 20 YEARS AND OLDER CARDIOVASCULAR RISK LESS THAN 150 mg/dL LOW RISK 150 TO 199 mg/dL BORDERLINE RISK 200 mg/dL AND GREATER HIGH RISK Performed By: #### L [id number] #### [facility] ([facility]) [address] [place] [address] Magnesium [Mass/Vol] 116 mg/dL Normal 0-160 [facility] Comment on above: Performed By: #### L [id number] #### [facility] ([facility]) [address] [place] [address] Magnesium [Mass/Vol] 32 mg/dL Normal 23-92 [facility] Comment on above: Performed By: #### L [id number] #### [facility] ([facility]) [address] [place] [address] NON HDL CHOL. (LDL+VLDL) 137 Normal [facility] Comment on above: Performed By: #### L [id number] #### [facility] ([facility]) [address] [place] [address] TOTAL VLDL-C 21 mg/dL Normal 0-40 [facility] Comment on above: Performed By: #### L [id number] #### [facility] ([facility]) [address] [place] [address] POCT GLUCOSE METER UNSOLICIT ED RESULTSon 01-16-2025 Glucose [Mass/Vol] 105 mg/dL Normal 70-105 [facility] Comment on above: Order Comment: Waive d Testing in the ED is performed under the ED CLIA certificate #[id number]. Result Comment: pmen doz Performed By: #### L [id number] #### [facility] ([facility]) [address] [place] [address] Glucose [Mass/Vol] 124 mg/dL High 70-105 [facility] Comment on above: Order Comment: Waive d Testing in the ED is performed under the ED CLIA certificate #[id number]. Result Comment: tdel p Performed By: #### L [id number] #### [facility] ([facility]) [address] [place] [address] TSHon 01-16-2025 THYROTROPIN (MIU/L) IN SER/PLAS BY DETECTION LIMIT <= 0.05 MIU/L 1.64 mIU/L Normal 0.34-5.60 [facility] Comment on above: Performed By: #### L [id number] #### [facility] ([facility]) [address] [place] [address] Office Visiton 12-06-2024 Follow-up visit [id number] DavidWatson 1965 M Date Provider Department Center 12/06/2024 ADONIS REBOLLEDO Family History Problem Relation Age of Onset No Known Problems Mother No Known Problems Father Family Status - Relation Status Age at Mother Father Level of Service:14926 MD OFFICE/OUTPATIENT ESTABLISHED MOD MDM 30 MIN Normal [facility] Office Visiton 10-27-2024 Follow-up visit [id number] Watson Arnett 1965 M Date Provider Department Center 10/27/2024 ADONIS REBOLLEDO Family History Problem Relation Age of Onset No Known Problems Mother No Known Problems Father Family Status - Relation Status Age at Mother Father Level of Service:57112 MD OFFICE/OUTPATIENT ESTABLISHED MOD MDM 30 MIN Normal [facility] CBC AUTO DIFFon 02-06-2023 BASO # 0.0 103/ul Normal 0.0-0.1 [facility] Comment on above: Performed By: #### C BC #### [facility] [address] [address] [address] John Bertrand Basophils/100 WBC (Bld) 0.4 % Normal 0.2-2.0 [facility] Comment on above: Performed By: #### C BC #### [facility] [address] [address] [address] John Bertrand EO # 0.2 103/ul Normal 0.0-0.7 [facility] Comment on above: Performed By: #### C BC #### [facility] [address] [place] [address] Dr. John Bertrand Eosinophils/100 WBC (Bld) 3.1 % Normal 0.9-7.0 [facility] Comment on above: Performed By: #### C BC #### [facility] [address] [place] [address] Dr. John Bertrand Erythrocyte distribution width (RBC) [Ratio] 13.9 % Normal 11.0-15.0 [facility] Comment on above: Performed By: #### C BC #### [facility] [address] [place] [address] Dr. John Bertrand Hematocrit (Bld) [Volume fraction] 43.8 % Normal 42.0-54.0 [facility] Comment on above: Performed By: #### C BC #### [facility] [address] [place] [address] Dr. John Bertrand Hemoglobin (Bld) [Mass/Vol] 14.4 g/dL Normal 14.0-18.0 [facility] Comment on above: Performed By: #### C BC #### [facility] [address] [place] [address] Dr. John Bertrand IG # 0.01 10e3/ul Normal 0.00-0.03 [facility] Comment on above: Performed By: #### C BC #### [facility] [address] [place] [address] Dr. John Bertrand IG % 0.2 % Normal 0.0-0.5 [facility] Comment on above: Performed By: #### C BC #### [facility] [address] [place] [address] Dr. John Bertrand LYMPH # 2.3 103/ul Normal 1.2-3.8 [facility] Comment on above: Performed By: #### C BC #### [facility] [address] [place] [address] Dr. John Bertrand Lymphocytes/100 WBC (Bld) 41.1 % Normal 20.5-60.0 [facility] Comment on above: Performed By: #### C BC #### [facility] [address] [place] [address] Dr. John Bertrand MANUAL DIFF REQ NO Normal [facility] Comment on above: Performed By: #### C BC #### [facility] [address] [place] [address] Dr. John Bertrand MCH (RBC) [Entitic mass] 27.6 pg Normal 25.9-34.0 [facility] Comment on above: Performed By: #### C BC #### [facility] [address] [place] [address] Dr. John Bertrand MCHC (RBC) [Mass/Vol] 32.9 g/dL Normal 29.9-35.2 [facility] Comment on above: Performed By: #### C BC #### [facility] [address] [place] [address] Dr. John Bertrand MCV (RBC) [Entitic vol] 83.9 fL Normal 80.0-94.0 [facility] Comment on above: Performed By: #### C BC #### [facility] [address] [place] [address] Dr. John Bertrand MONO # 0.5 103/ul Normal 0.3-0.8 [facility] Comment on above: Performed By: #### C BC #### [facility] [address] [place] [address] Dr. John Bertrand Monocytes/100 WBC (Bld) 9.0 % Normal 1.7-12.0 [facility] Comment on above: Performed By: #### C BC #### [facility] [address] [place] [address] Dr. John Bertrand NEUT # 2.5 103/ul Normal 1.4-6.5 [facility] Comment on above: Performed By: #### C BC #### [facility] [address] [place] [address] Dr. John Bertrand Neutrophils/100 WBC (Bld) 46.2 % Normal 43.0-75.0 [facility] Comment on above: Performed By: #### C BC #### [facility] [address] [address] [address] John Bertrand Platelet mean volume (Bld) [Entitic vol] 9.6 fL Normal 9.5-13.5 [facility] Comment on above: Performed By: #### C BC #### [facility] [address] [address] [address] John Bertrand PLT 223 103/ul Normal 150-450 [facility] Comment on above: Performed By: #### C BC #### [facility] [address] [address] [address] John Bertrand RBC 5.22 106/ul Normal 4.70-6.10 [facility] Comment on above: Performed By: #### C BC #### [facility] [address] [place] [address] Dr. John Bertrand WBC 5.5 103/ul Normal 4.0-11.0 [facility] Comment on above: Performed By: #### C BC #### [facility] [address] [place] [address] Dr. John Bertrand PROF CHEM 8 (BAS METB)on Anion gap [Moles/Vol] 9.3 mmol/L Normal [facility] Comment on above: Performed By: #### B MP #### [facility] [address] [place] [address] Dr. John Bertrand Calcium [Mass/Vol] 8.7 mg/dL Normal 8.5-10.1 [facility] Comment on above: Performed By: #### B MP #### [facility] [address] [place] [address] Dr. John Bertrand Chloride [Moles/Vol] 105 mmol/L Normal 98-107 [facility] Comment on above: Performed By: #### B MP #### [facility] [address] [place] [address] Dr. John Bertrand CO2 [Moles/Vol] 27.6 mmol/L Normal 21.0-32.0 [facility] Comment on above: Performed By: #### B MP #### [facility] [address] [address] [address] John Bertrand Creatinine [Mass/Vol] 1.28 mg/dL Normal 0.70-1.30 [facility] Comment on above: Performed By: #### B MP #### [facility] [address] [address] [address] John Bertrand EGFR-AF KAZAKH >60 Normal >=60 [facility] Comment on above: Performed By: #### B MP #### [facility] [address] [address] [address] John Bertrand EGFR-NON AF KAZAKH 58 mL/min/1.73m2 Critically low >=60 [facility] Comment on above: Performed By: #### B MP #### [facility] [address] [place] [address] Dr. John Bertrand Glucose [Mass/Vol] 137 mg/dL Critically high 74-106 [facility] Comment on above: Performed By: #### B MP #### [facility] [address] [address] [address] John Bertrand Potassium [Moles/Vol] 3.9 mmol/L Normal 3.5-5.1 [facility] Comment on above: Performed By: #### B MP #### [facility] [address] [place] [address] Dr. John Bertrand Sodium [Moles/Vol] 138 mmol/L Normal 136-145 [facility] Comment on above: Performed By: #### B MP #### [facility] [address] [address] [address] John Bertrand Urea nitrogen [Mass/Vol] 16.0 mg/dL Normal 7.0-18.0 [facility] Comment on above: Performed By: #### B MP #### [facility] [address] [address] [address] John Bertrand Urea nitrogen/Creatinine [Mass ratio] 12.5 mg/mg Normal [facility] Comment on above: Performed By: #### B MP #### [facility] [address] [place] [address] Dr. John Bertrand CBC AUTO DIFFon 01-14-2023 BASO # 0.0 103/ul Normal 0.0-0.1 [facility] Comment on above: Performed By: #### C BC #### [facility] [address] [place] [address] Dr. John Bertrand Basophils/100 WBC (Bld) 0.6 % Normal 0.2-2.0 [facility] Comment on above: Performed By: #### C BC #### [facility] [address] [place] [address] Dr. John Bertrand EO # 0.1 103/ul Normal 0.0-0.7 [facility] Comment on above: Performed By: #### C BC #### [facility] [address] [place] [address] Dr. John Bertrand Eosinophils/100 WBC (Bld) 2.7 % Normal 0.9-7.0 [facility] Comment on above: Performed By: #### C BC #### [facility] [address] [place] [address] Dr. John Bertrand Erythrocyte distribution width (RBC) [Ratio] 13.9 % Normal 11.0-15.0 [facility] Comment on above: Performed By: #### C BC #### [facility] [address] [place] [address] Dr. John Bertrand Hematocrit (Bld) [Volume fraction] 44.8 % Normal 42.0-54.0 [facility] Comment on above: Performed By: #### C BC #### [facility] [address] [place] [address] Dr. John Bertrand Hemoglobin (Bld) [Mass/Vol] 14.8 g/dL Normal 14.0-18.0 [facility] Comment on above: Performed By: #### C BC #### [facility] [address] [place] [address] Dr. John Bertrand IG # 0.01 10e3/ul Normal 0.00-0.03 [facility] Comment on above: Performed By: #### C BC #### [facility] [address] [place] [address] Dr. John Bertrand IG % 0.2 % Normal 0.0-0.5 [facility] Comment on above: Performed By: #### C BC #### [facility] [address] [place] [address] Dr. John Bertrand LYMPH # 1.9 103/ul Normal 1.2-3.8 [facility] Comment on above: Performed By: #### C BC #### [facility] [address] [place] [address] Dr. John Bertrand Lymphocytes/100 WBC (Bld) 37.0 % Normal 20.5-60.0 [facility] Comment on above: Performed By: #### C BC #### [facility] [address] [place] [address] Dr. John Bertrand MANUAL DIFF REQ NO Normal [facility] Comment on above: Performed By: #### C BC #### [facility] [address] [place] [address] Dr. John Bertrand MCH (RBC) [Entitic mass] 27.2 pg Normal 25.9-34.0 [facility] Comment on above: Performed By: #### C BC #### [facility] [address] [place] [address] Dr. John Bertrand MCHC (RBC) [Mass/Vol] 33.0 g/dL Normal 29.9-35.2 [facility] Comment on above: Performed By: #### C BC #### [facility] [address] [place] [address] Dr. John Bertrand MCV (RBC) [Entitic vol] 82.4 fL Normal 80.0-94.0 [facility] Comment on above: Performed By: #### C BC #### [facility] [address] [place] [address] Dr. John Bertrand MONO # 0.5 103/ul Normal 0.3-0.8 [facility] Comment on above: Performed By: #### C BC #### [facility] [address] [place] [address] Dr. John Bertrand Monocytes/100 WBC (Bld) 8.8 % Normal 1.7-12.0 [facility] Comment on above: Performed By: #### C BC #### [facility] [address] [place] [address] Dr. John Bertrand NEUT # 2.7 103/ul Normal 1.4-6.5 [facility] Comment on above: Performed By: #### C BC #### [facility] [address] [place] [address] Dr. John Bertrand Neutrophils/100 WBC (Bld) 50.7 % Normal 43.0-75.0 [facility] Comment on above: Performed By: #### C BC #### [facility] [address] [place] [address] Dr. John Bertrand Platelet mean volume (Bld) [Entitic vol] 9.5 fL Normal 9.5-13.5 [facility] Comment on above: Performed By: #### C BC #### [facility] [address] [place] [address] Dr. John Bertrand PLT 235 103/ul Normal 150-450 [facility] Comment on above: Performed By: #### C BC #### [facility] [address] [place] [address] Dr. John Bertrand RBC 5.44 106/ul Normal 4.70-6.10 [facility] Comment on above: Performed By: #### C BC #### [facility] [address] [place] [address] Dr. John Bertrand WBC 5.3 103/ul Normal 4.0-11.0 [facility] Comment on above: Performed By: #### C BC #### [facility] [address] [place] [address] Dr. John Bertrand FREE THYROXINE INDEX T7on FTI 2.16 Normal 1.30-4.50 [facility] Comment on above: Performed By: #### T SH, CMP, T7, LIPID ####[facility] [address] [address]Dr. John Bertrand T3U 36.0 % Normal 33.0-40.0 [facility] Comment on above: Performed By: #### T SH, CMP, T7, LIPID ####[facility] [address] [place], [place] [address]TkDr. John Bertrand T4 [Mass/Vol] 6.00 ug/dL Normal 4.50-12.10 [facility] Comment on above: Performed By: #### T SH, CMP, T7, LIPID ####[facility] [address] [id number]. John Bertrand GLYCOHEMOGLOBIN A1Con 2022 ADA RECOMMENDATION SEE BELOW Normal [facility] Comment on above: Result Comment: ADA RECOMMENDED LIMIT 4.0 - 6.0 ADA THERAPEUTIC TARGET < 7.0 ACTION SUGGESTED > 7.0 Performed By: #### A 1C #### [facility] [address] [address] [address] John Bertrand Glucose [Mass/Vol] 154 mg/dL Normal [facility] Comment on above: Performed By: #### A 1C #### [facility] [address] [address] [address] John Bertrand HbA1c (Bld) [Mass fraction] 7.0 % Critically high 4.5-6.2 [facility] Comment on above: Performed By: #### A 1C #### [facility] [address] [address] [address] John Bertrand LIPID PROFILEon 01-14-2023 CHOL-HDL RATIO NORM SEE BELOW Normal [facility] Comment on above: Result Comment: 3.3 - 4.4 LOW RISK 4.4 - 7.1 AVERAGE RISK 7.1 - 11.0 MODERATE RISK >11.0 HIGH RISK Performed By: #### T SH, CMP, T7, LIPID ####[facility] [address] [id number]. John Bertrand Cholesterol [Mass/Vol] 151 mg/dL Normal <=200 [facility] Comment on above: Performed By: #### T SH, CMP, T7, LIPID ####[facility] [address] [id number]. John Bertrand Cholesterol in HDL [Mass/Vol] 36 mg/dL Critically low 40-60 [facility] Comment on above: Performed By: #### T SH, CMP, T7, LIPID ####[facility] [address] [id number]. John Bertrand Cholesterol in LDL [Mass/Vol] 101.4 mg/dL Normal [facility] Comment on above: Performed By: #### T SH, CMP, T7, LIPID ####[facility] [address] [id number]. John Bertrand Cholesterol.total/Ch olesterol in HDL [Mass ratio] 4.2 {ratio} Normal [facility] Comment on above: Performed By: #### T SH, CMP, T7, LIPID ####[facility] [address] [address]Dr. John Bertrand HDL NORMAL > or = 60 mg/dl - LO W CARDIOVASCULAR RISK <40 mg/dl - HIGH CARDIOVASCULAR RISK Normal [facility] Comment on above: Performed By: #### T SH, CMP, T7, LIPID ####[facility] [address] [address]Dr. John Bertrand LDL CALC NORMAL SEE BELOW Normal [facility] Comment on above: Result Comment: <100 mg/dl OPTIMAL 100 - 129 mg/dl NEAR OR ABOVE OPTIMAL 130 - 159 mg/dl BORDERLINE HIGH 160 - 189 mg/dl HIGH >190 mg/dl VERY HIGH Performed By: #### T SH, CMP, T7, LIPID ####[facility] [address] [id number]. John Bertrand Triglyceride [Mass/Vol] 68 mg/dL Normal <=150 [facility] Comment on above: Performed By: #### T SH, CMP, T7, LIPID ####[facility] [address] [id number]. John Bertrand VLDL CALC 13.6 mg/dL Normal [facility] Comment on above: Performed By: #### T SH, CMP, T7, LIPID ####[facility] [address] [id number]. John Bertrand PROF 14(COMP METB)on 023 Albumin [Mass/Vol] 3.8 g/dL Normal 3.4-5.0 [facility] Comment on above: Performed By: #### T SH, CMP, T7, LIPID ####[facility] [address] [address]Dr. John Bertrand Albumin/Globulin [Mass ratio] 1.1 {ratio} Normal [facility] Comment on above: Performed By: #### T SH, CMP, T7, LIPID ####[facility] [address] [address]Dr. John Bertrand ALP [Catalytic activity/Vol] 71 U/L Normal 46-116 [facility] Comment on above: Performed By: #### T SH, CMP, T7, LIPID ####[facility] [address] [address]Dr. John Bertrand ALT [Catalytic activity/Vol] 80 U/L Critically high 16-63 [facility] Comment on above: Performed By: #### T SH, CMP, T7, LIPID ####[facility] [address] [address]Dr. John Bertrand Anion gap [Moles/Vol] 11.2 mmol/L Normal [facility] Comment on above: Performed By: #### T SH, CMP, T7, LIPID ####[facility] [address] [address]Dr. John Bertrand AST [Catalytic activity/Vol] 39 U/L Critically high 15-37 [facility] Comment on above: Performed By: #### T SH, CMP, T7, LIPID ####[facility] [address] [address]Dr. John Bertrand Bilirubin [Mass/Vol] 0.4 mg/dL Normal 0.2-1.0 [facility] Comment on above: Performed By: #### T SH, CMP, T7, LIPID ####[facility] [address] [address]Dr. John Bertrand Calcium [Mass/Vol] 9.2 mg/dL Normal 8.5-10.1 [facility] Comment on above: Performed By: #### T SH, CMP, T7, LIPID ####[facility] [address] [address]Dr. Nataliebrenda Bertrand Chloride [Moles/Vol] 107 mmol/L Normal 98-107 [facility] Comment on above: Performed By: #### T SH, CMP, T7, LIPID ####[facility] [address] [address]Dr. Nataliebrenda Bertrand CO2 [Moles/Vol] 26.8 mmol/L Normal 21.0-32.0 [facility] Comment on above: Performed By: #### T SH, CMP, T7, LIPID ####[facility] [address] [address]Dr. John Bertrand Creatinine [Mass/Vol] 1.21 mg/dL Normal 0.70-1.30 [facility] Comment on above: Performed By: #### T SH, CMP, T7, LIPID ####[facility] [address] [place], [place] [address]Dr. John Bertrand EGFR-AF KAZAKH >60 Normal >=60 [facility] Comment on above: Performed By: #### T SH, CMP, T7, LIPID ####[facility] [address] [place], [place] [address]Dr. John Bertrand EGFR-NON AF KAZAKH >60 Normal >=60 [facility] Comment on above: Performed By: #### T SH, CMP, T7, LIPID ####[facility] [address] [address]Dr. John Bertrand Globulin (S) [Mass/Vol] 3.5 g/dL Normal [facility] Comment on above: Performed By: #### T SH, CMP, T7, LIPID ####[facility] [address] [address]Dr. John Bertrand Glucose [Mass/Vol] 140 mg/dL Critically high 74-106 [facility] Comment on above: Performed By: #### T SH, CMP, T7, LIPID ####[facility] [address] [address]Dr. John Bertrand Potassium [Moles/Vol] 4.0 mmol/L Normal 3.5-5.1 [facility] Comment on above: Performed By: #### T SH, CMP, T7, LIPID ####[facility] [address] [address]Dr. John Bertrand Protein [Mass/Vol] 7.3 g/dL Normal 6.4-8.2 [facility] Comment on above: Performed By: #### T SH, CMP, T7, LIPID ####[facility] [address] [address]Dr. John Bertrand Sodium [Moles/Vol] 141 mmol/L Normal 136-145 [facility] Comment on above: Performed By: #### T SH, CMP, T7, LIPID ####[facility] [address] [address]Dr. Nataliebrenda Bertrand Urea nitrogen [Mass/Vol] 11.0 mg/dL Normal 7.0-18.0 [facility] Comment on above: Performed By: #### T SH, CMP, T7, LIPID ####[facility] [address] [address]Dr. John Bertrand Urea nitrogen/Creatinine [Mass ratio] 9.1 mg/mg Normal [facility] Comment on above: Performed By: #### T SH, CMP, T7, LIPID ####[facility] [address] [address]Dr. Nataliebrenda Jerzy TSHon 01-14-2023 TSH 1.532 uIU/mL Normal 0.358-3.740 [facility] Comment on above: Performed By: #### T SH, CMP, T7, LIPID ####[facility] [address] [address]Dr. John Jerzy Physician Referralon 023 Physician Referral [phone] [id number] Normal [facility] CT ABD/PELV W CONon 12-17-19 [...] by: GLORIA STRANGE Date: 2022-12-16 09:20 Normal [facility] ECHOCARDIO M/2D COMPLETEon 0 12-16-2022 ECHOCARDIO M/2D COMPLETE Patient: FLYNN ARNETT Exam Date: 12/16/2022 : 1965 Gender:M Ordering : DR LAUREN VELASQUEZ . Admission #: [id number] Family : Order #: [id number] CLICK HERE TO VIEW EXAM ECHOCARDIOGRAM REPORT [...] M.D. on 12/16/2022 at 12:11 Normal [facility] Covid-19 PCR ([facility])on SARS-CoV-2 (COVID-19) RNA THALIA+probe Ql (Unsp spec) Not detected Normal NOT DETECTED [facility] Comment on above: Result Comment: This test is not yet approved or cleared by the [place] FDA. When there are no FDA-approved or cleared tests available, and other criteria are met, FDA can make tests available under an emergency access mechanism called an Emergency Use Authorization (EUA). The EUA for this test is supported by the [place] of Health and Human Service's (HHS's) declaration [...] SARS-CoV-2. Performed By: #### C VDTBH #### [facility] [address] [place] [address] Dr. John Bertrand INFLUENZA A AND B AGon 03-06 [facility] SEE BELOW Normal [facility] Comment on above: Result Comment: Nega tive for Flu A protein angiten. Infection due to Flu A cannot be ruled out. Flu A angiten in the sample may be below the detection limit of the test. Performed By: #### I NFLUAB #### [facility] [address] [place] [address] Dr. John Bertrand INFLUBNEGH SEE BELOW Normal [facility] Comment on above: Result Comment: Nega tive for Flu B protein antigen. Infection due to Flu B cannot be ruled out. Flu B antigen in the sample may be below the detection limit of the test. Performed By: #### I NFLUAB #### [facility] [address] [place] [address] Dr. John Bertrand INFLUENZA A AG Negative Normal NEGATIVE SEE COMMENT [facility] Comment on above: Performed By: #### I NFLUAB #### [facility] [address] [place] [address] Dr. John Bertrand INFLUENZA B AG Negative Normal NEGATIVE SEE COMMENT [facility] Comment on above: Performed By: #### I NFLUAB #### [facility] [address] [place] [address] Dr. John Bertrand INTERNAL CONTROLS Within Normal Limits Normal Wi thin Normal Limits [facility] Comment on above: Performed By: #### I NFLUAB #### [facility] [address] [place] [address] Dr. John Bertrand SYMPTOMATIC COVID-19 ANTIGEN on 03-06-2022 EUA Statement SEE BELOW Normal [facility] Comment on above: Result Comment: This [...] sooner. Performed By: #### C VDAGS #### [facility] [address] [place] [address] Dr. John Bertrand SARS-CoV-2 (COVID-19) RNA THALIA+probe Ql (Unsp spec) Negative Normal NEGATIVE [facility] Comment on above: Performed By: #### C VDAGS #### [facility] [address] [address] [address] John Bertrand Vital Signs Date Time Vital Sign Value Performing Clinician Facility 05-10-2023 09:20-0400 Body height 175.26 cm Monica Cardozamond Other [facility] Other 05-10-2023 09:20-0400 Body mass index (BMI) [Ratio] 33.96 kg/m2 Monica Cardozamond Other [facility] Other 05-10-2023 09:20-0400 Body temperature 99 [degF] Monica Cardozamond Other [facility] Other 05-10-2023 09:20-0400 Body weight 104.33 kg Monica Cardozamond Other [facility] Other 05-10-2023 09:20-0400 Diastolic blood pressure 102 mm[Hg] Monica Cardozamond Other [facility] Other 05-10-2023 09:20-0400 Respiratory rate 18 /min Monica Cardozamond Other [facility] Other 05-10-2023 09:20-0400 SaO2% (BldA) [Mass fraction] 97 % Monica Cardozamond Other [facility] Other 05-10-2023 09:20-0400 Systolic blood pressure 141 mm[Hg] Monica Cardozamond Other [facility] Other 01-09-2023 15:29-0400 Blood Pressure Location Colt STUART [facility] [place] 01-09-2023 15:29-0400 Diastolic blood pressure 98 mm[Hg] Colt NILL [facility] [place] 01-09-2023 15:29-0400 Heart rate 80 /min Colt NILL [facility] [place] 01-09-2023 15:29-0400 Respiratory rate 16 /min Colt NILL [facility] [place] 01-09-2023 15:29-0400 Systolic blood pressure 146 mm[Hg] Colt NILL [facility] [place] Encounters Encounter Date Encounter Type Care Provider Facility Start: 07-11-2025 End: 07-11-2025 ambulatory [facility] Start: 05-31-2025 ambulatory [facility] Start: 05-31-2025 End: 05-31-2025 ambulatory [facility] Start: 05-23-2025 ambulatory [facility] Start: 05-10-2025 End: 05-10-2025 ambulatory [facility] Start: 03-07-2025 End: 03-08-2025 ambulatory [facility] Start: 02-28-2025 ambulatory [facility] Start: 01-31-2025 End: 01-31-2025 ambulatory [facility] Start: 01-26-2025 ambulatory [facility] Start: 01-18-2025 Evaluation and manag ement of inpatient [facility] Start: 01-18-2025 Evaluation and manag ement of inpatient [facility] Start: 01-16-2025 Evaluation and manag ement of inpatient LEATHA [facility] Start: 01-16-2025 End: 01-18-2025 Evaluation and management of inpatient LAUREN [facility] Start: 12-06-2024 End: 12-06-2024 ambulatory [facility] Start: 10-27-2024 End: 10-27-2024 ambulatory [facility] Start: 05-10-2023 End: 05-10-2023 ambulatory Monica Jackson Other [facility] Other Start: 05-10-2023 Office outpatient ne w 20 minutes Monica Jackson [facility] Start: 02-12-2023 Encounter for other [facility]ural [facility] Start: 02-12-2023 Encounter for preprocedural laboratory examination [facility] Start: 02-06-2023 End: 02-07-[address] LAUREN VELASQUEZ . Facility:[facility] Start: 02-06-2023 End: 02-07-2023 Encounter for preprocedural laboratory examination DR LAUREN VELASQUEZ . Facility:[facility] Start: 01-20-2023 Encounter for genera l adult medical examination without abnormal findings DR LAUREN VELASQUEZ . [facility] Start: 01-14-2023 End: 01-15-[address] LAUREN VELASQUEZ . Facility:[facility] Start: 01-14-2023 End: 01-15-2023 Encounter for general adult medical examination without abnormal findings DR LAUREN VELASQUEZ . Facility: Start: 01-09-2023 End: 01-10-2023 [facility]ulatory [facility] Start: 01-09-2023 End: 01-09-2023 Patient encounter procedure Colt STUART [facility] [place] Start: 12-16-2022 End: 12-17-[address] LAUREN VELASQUEZ . Facility:[facility] Start: 03-06-2022 End: 03-06-[address] LAUREN VELASQUEZ . Facility:[facility] Procedures Date Procedure Procedure Detail Performing Clinician Start: 01-14-2023 PSA screening MONICA SANTOS Comment on above: Performed By: #### P [facility] #### [facility] [address] [address] [address] John Bertrand Open reduction of fracture with internal fixation Colt STUART Comment on above: right arm Immunizations Immunization Date Immunization Notes Care Provider Ashley horvath NEGATED: Highlighted row has not occurred!01-09-2023 influenza virus vaccine, unspecified formulation Colt STUART [facility] [place] NEGATED: Highlighted row has not occurred!01-09-2023 SARS-CoV-2 mRNA (tozinameran 5y-11y) vaccine Colt STUART [facility] [place] Payers Date Payer Category Payer Unknown [id number] 1965 Unknown [id number] 2.16.8 [id number] 1965 Unknown [id number] 2.16.84 [id number] 1965 Unknown [id number] 2.16.84 [id number] 1965 Unknown [id number] 2.16.84 [id number] 1965 Unknown [id number] 2.16.84 [id number] 1965 Unknown [id number] 2.16.84 [id number] 1957 Self-pay [id number] 1957 Unknown [id number] 1957 Unknown [id number] Social History Date Type Detail Facility Start: 01-09-2023 Tobacco smoking status Never s moked tobacco (finding) [facility] [place] Tobacco smoking status Never Gener al [facility] [place] Sex Assigned At Male [facility] Functional Status Date Assessment Result Facility 01-09-2023 Functional Status N/A [facility] [place] Clinical Notes 12-18-2022 to 07-11-2025 Note Date & Type Note Facility 07-11-2025 Note [facility] Consult Note [facility] - [facility] Reason for visit: Device detected [...] hyperlipidemia AAA, DM 2 was transferred from [facility] to [facility] with underlying A-fib with RVR. He was placed on Cardizem which resulted in his heart rate dropping to 20 to 30 minutes and subsequent was transferred over to [facility] he underwent a cardiac cath which [...] Year: No Utilities: Not At Risk (01/16/2025) [facility] Utilities Threatened with loss of utilities: No [...] in the morning. 30 tablet 0 HYDROcodone-acetaminophen (Sunbury) 5-325 mg tablet Take 1 tablet by [...] bedtime. carvedilol (C (more content not included)... [facility] 05-31-2025 Note ATRIAL FIBRILLATION ABLATION PROCEDURE NOTE DATE OF PROCEDURE: 05/31/2025 PERFORMING PHYSICIAN: Dr. Darryn Lundy HRIS ANALYST: CHAYO CONSENT: Patient NAME OF THE PROCEDURE: [...] threshold were verified (more content not included)... [facility] 05-31-2025 Note Patient: Flynn kim Procedure Summary Date: 05/31/25 Room / Location: [facility] SKATE BOARDER 1 EP / [facility] HVC VASCULAR LAB (Cath) Anesthesia Start: 1242 Anesthesia Stop: 1559 Procedure: Ablation a-fib w/ pvi Diagnosis: Paroxysmal A-fib (CMS/HCC) (AFIB) Providers: Darryn Lundy MD Responsible Provider: Cutr Azul MD Anesthesia Type: general ASA Status: [...] no known notable events for this encounter. [facility] 05-31-2025 Note Arterial Line: Date/Time: 05/31/2025 [...] And Ultrasound probe cover. VSS. Staffing Performed: resident/ROAD TESTER/KATE Anesthesiologist: Sonja Mccarty MD Resident/ROAD TESTER: Damien Barnes MD Performed by: Damien Barnes MD Authorized by: Sonja Mccarty MD [facility] 05-31-2025 Note Airway Date/Time: 05/31/2025 1:07 PM Reason: elective Airway not difficult General Information and Staff Patient location during procedure: OR Anesthesiologist: Sonja Mccarty MD Performed: resident/ROAD TESTER/KATE Patient Condition Indications for airway management: anesthesia [...] 1 Number of other approaches attempted: 0 [facility] 05-31-2025 Note Patient: Flynn kim Procedure Information Date/Time: 05/31/25 1130 Procedure: Ablation a-fib w/ pvi - PC APPROVED Location: [facility] SKATE BOARDER 1 EP / [facility] HV VASCULAR LAB (Cath) Providers: Darryn [...] Pacemaker Restless leg syndrome Sick sinus syndrome (CMS/[facility]) Past Surgical History: Procedure Laterality Date CARDIAC [...] Dose Status amiodarone (Pacerone) 200 mg tablet [id number] Yes Take 1 tablet (200 mg) by mouth in the morning. Darryn Lundy MD 05/30/2025 Active apixaban (Eliquis) 5 mg tablet [id number] Yes Take 1 tablet (5 mg) by mouth two times daily. Darryn Lundy MD 05/30/2025 Morning Active aspirin 81 mg EC tablet [id number] Yes Take 81 mg by mouth in the morning. Historical MD Sammy 05/30/2025 Active carvedilol (Coreg) 3.125 mg tablet [id number] Take 1 tablet (3.125 mg) by mouth with breakfast and with evening meal. Patient not taking: Reported on 05/08/2025 Adonis Jacob MD Active dapagliflozin propanediol (Farxiga) 10 mg [id number] Yes Take 1 tablet (10 mg) by mouth in the morning. Adonis Jacob MD 05/30/2025 Active dilTIAZem CD (Cardizem CD) 120 mg 24 hr capsule [id number] Yes Take 1 capsule (120 mg) by mouth once daily as directed. Lauren Rdz CNP 05/30/2025 Active ezetimibe (Zetia) 10 mg tablet [id number] Take 1 tablet (10 mg) by mouth in the morning. Patient not taking: Reported on 03/07/2025 Stephane Vale CNP 03/07/25 2359 furosemide (Lasix) 20 mg tablet [id number] Take 1/2 tablet daily Patient not taking: Reported on 05/08/2025 Adonis Jacob MD Active HYDROcodone-acetaminophen (Sunbury) 5-325 mg tablet [id number] Yes Take 1 tablet by mouth every 4 (four) hours if needed. Historical Provider, Past Month Active lisinopril 10 mg tablet [id number] Yes Take 1 tablet (10 mg) by mouth in the morning. Adonis Jacob MD 05/30/2025 Active metoprolol succinate XL (Toprol-XL) 25 mg 24 hr tablet [id number] Yes Take 1 tablet (25 mg) by mouth in the morning. STOP CARVEDILOL Lauren Rdz CNP 05/30/2025 Active pantoprazole (ProtoNix) 40 mg EC tablet [id number] Yes Take 40 mg by mouth before breakfast. Historical Provider, 05/30/2025 Active simvastatin (Zocor) 20 mg tablet [id number] Yes Take 20 mg by mouth at [...] 80 QT Interval 330 QTC CALCULATION(BAZETT) 481 R-[place] 62 T Wave [place] 87 Impression Atrial fibrillation with rapid ventricula (more content not included)... [facility] 03-07-2025 Note [facility] Electrophysiology Consult Note [facility] - [facility] Reason for visit: Device detected A-fib HPI: Flynn Arnett is a 59 y.o. year old with past medical history of HFpEF, hypertension, severe MR s/p mitral valve repair/annuloplasty with left atrial appendage clip, PFO closure hyperlipidemia AAA, DM 2 was transferred from [facility] to [facility] with underlying A-fib with RVR. He was placed on Cardizem which resulted in his heart rate dropping to 20 to 30 minutes and subsequent was transferred over to [facility] he underwent a cardiac cath which [...] Year: No Utilities: Not At Risk (01/16/2025) [facility] Utilities Threatened with loss of utilities: No [...] daily as directed. 90 capsule 3 HYDROcodone-acetaminophen (Sunbury) 5-325 mg tablet Take 1 tablet by [...] Chest wall: Rate (more content not included)... [facility] 02-16-2025 Note Patient here for [facility] ED visit last week. Still having [...] palpitations. He did not check his HR. [facility] 01-31-2025 Note [facility] Cardiology Clinic Note Chief Complaint: Follow up HPI: Flynn Arnett is a 59 y.o. male Patient here for follow up [facility]. Underwent heart cath and PPM implant. [...] regurgitation s/p mitral valve repair Essential hypertension Uob-pudebqe-smzlavmxm type 2 diabetes mellitus Discharge Disposition Home [...] HYDROcodone-acetaminophen 5-325 mg tablet Commonly known as: Sunbury lisinopril 10 mg tablet Take 1 tablet (10 mg) by mouth in the morning. pantoprazole 40 mg EC tablet Commonly known as: ProtoNix simvastatin 20 mg tablet Commonly known as: Zocor Where to Get Your Medications These medications were sent to [facility] - [place], [place] - [address], [facility] [address] apixaban 5 mg tablet Activity Normal activity as tolerated Diet Patient currently has no discharge diet orders Allergies Patient has no known allergies. Hospital Course Flynn Arnett is a 59 y.o. adult with a past medical history of heart failure with preserved ejection fraction, hypertension, mitral valve prolapse with regurgitation s/p mitral valve repair, hyperlipidemia, lqc-sgkangp-ndkswtkup type 2 diabetes, AAA who presents as a transfer from [facility]. Patient developed left lower chest pain [...] had racing heartbeat. He went to the [facility] with these complaints, where reportedly his [...] to 30 bpm. He was transferred to [facility] for higher level of care. At [facility], his heart rate was at his [...] working adequately. Du (more content not included)... [facility] 01-18-2025 Note DUAL CHAMBER PACEMAK ER [...] lead position on orthogonal views (SWANSON and SPANISH) to confirm septal position, the screw was [...] lead position on orthogonal views (SWANSON and SPANISH), the screw was activated. Good sensing parameters, [...] any concerns. Darryn Lundy MD Cardiac Electrophysiology [facility] 01-18-2025 Note ---- Attestation signed by [...] 80 QT Interval 330 QTC CALCULATION(BAZETT) 481 R-[place] 62 T Wave [place] 87 Impression Atrial fibrillation with rapid ventricular [...] 1 1 [facility] Heart Station [address] [facility] [place] [address] [phone] (fax) Echocardiogram-[facility] Name: FLYNN ARNETT Study Date: 01/16/2025 02:51 PM B/P: 117 mmHg/76 mmHg HR: 54 bpm Date of : 1965 Location: [facility] Height: 69 in. Age: 59 year(s) [...] RVSP 33 mmHg (more content not included)... [facility] 01-18-2025 Note ---- Attestation signed by Leatha Caceres MD at 01/18/2025 10:14 AM The patient was evaluated with the resident/fellow Flynn Arnett is a 59 y.o. adult with a past medical history of heart failure with preserved ejection fraction, hypertension, mitral valve prolapse with regurgitation s/p mitral valve repair, hyperlipidemia, qfb-sjdmwyi-vfxbfowcx type 2 diabetes, AAA who presents as a transfer from [facility] for chest pain Critical Care services [...] [facility]nett [facility] - 59 [facility] 1965 [id number] Date of Admission - 01/16/2025 2:24 PM HPI/Hospital Course Subjective Flynn Arnett is a 59 y.o. adult with a past medical history of heart failure with preserved ejection fraction, hypertension, mitral valve prolapse with regurgitation s/p mitral valve repair, hyperlipidemia, iwo-llxtuug-bhzcduuwd type 2 diabetes, AAA who presents as a transfer from [facility]. Patient developed left lower chest pain [...] had racing heartbeat. He went to the [facility] with these complaints, where reportedly his [...] to 30 bpm. He was transferred to [facility] for higher level of care. At [facility], his heart rate was at his [...] - 100 mm (more content not included)... [facility] 01-17-2025 Note Patient: Flynn kim Procedure Information Date/Time: 01/17/25 1700 Procedure: Implant PPM Location: [facility] SKATE BOARDER 1 / [facility] VASCULAR LAB (Cath) Providers: Darryn Lundy MD Clinical information reviewed: Allergies Meds Physical Exam Airway Mallampati: II TM distance: >3 FB Neck ROM: full Cardiovascular Dental Pulmonary Abdominal Anesthesia Plan ASA 3 CSE Anesthetic plan and risks discussed with patient. Use of blood products discussed with patient who. Additional Equipment Requests [facility] 01-17-2025 Note ---- Attestation signed by [...] Value Ventricular Rate 49 Atrial Rate 49 MD Interval 196 QRS DURATION 82 QT Interval 474 QTC CALCULATION(BAZETT) 428 P [place] -18 R-[place] 51 T Wave [place] 69 Impression Sinus bradycardia Nonspecific ST and T wave abnormality Abnormal ECG When compared with ECG of 16-JAN-2025 14:49, Premature atrial complexes are no longer Present No results found for: CKTOTAL , CKMB , CKMBINDEX , TROPONINI Limited Echo (TTE) w/wo Limited Doppler, Color Flow, Imaging Agent, Strain, 3D, Bubble Study Result Date: 01/16/2025 1 1 [facility] Heart Station [address] [place] [address] [phone] (fax) Echocardiogram-[facility] Name: FLYNN ARNETT Study Date: 01/16/2025 02:51 PM B/P: 117 mmHg/76 mmHg HR: 54 bpm Date of : 1965 Location: [facility] Height: 69 in. Age: 59 year(s) [...] left ventricular sy (more content not included)... [facility] 01-17-2025 Note Patient: Flynn kim Procedure Information Date/Time: 01/17/251844 Procedure: Coronary angiography Location: [facility] SKATE BOARDER 3 / [facility] VASCULAR LAB (Cath) Providers: Reddy Henry MD Clinical information reviewed: [employer] Meds Physical Exam Airway Mallampati: II TM distance: <3 FB Neck ROM: full Cardiovascular - normal exam Rhythm: regular Dental Pulmonary - normal exam Abdominal - normal exam Anesthesia Plan ASA 3 other (Conscious sedation) Anesthetic plan and risks discussed with patient. Use of blood products discussed with patient who consented to blood products. Additional Equipment Requests [facility] 01-17-2025 Note ---- Attestation signed by Leatha Caceres MD at 01/18/2025 10:12 AM The patient was evaluated with the resident/fellow Flynn Arnett is a 59 y.o. adult with a past medical history of heart failure with preserved ejection fraction, hypertension, mitral valve prolapse with regurgitation s/p mitral valve repair, hyperlipidemia, cwq-qrvxrjj-rissearzd type 2 diabetes, AAA who presents as a transfer from [facility] for chest pain Critical Care services [...] Medical ICU Progress Note Patient - Flynn rAnett Age - 59 [facility] 1965 [id number] Date of Admission - 01/16/2025 2:24 PM HPI/Hospital Course Subjective Flynn Arnett is a 59 y.o. adult with a past medical history of heart failure with preserved ejection fraction, hypertension, mitral valve prolapse with regurgitation s/p mitral valve repair, hyperlipidemia, ykw-yzntazc-bhedadxnz type 2 diabetes, AAA who presents as a transfer from [facility]. Patient developed left lower chest pain [...] had racing heartbeat. He went to the [facility] with these complaints, where reportedly his [...] to 30 bpm. He was transferred to [facility] for higher level of care. At [facility], his heart rate was at his [...] 61 (L) 83 (more content not included)... [facility] 01-16-2025 Note Tentatively plan nimesh l chamber pacemaker implant tomorrow for symptomatic bradycardia. [facility] 01-16-2025 Note Given chest pain and shortness of breath with modest activity, especially with new bradycardia, plan coronary angiography tomorrow to exclude significant CAD that could explain symptoms and bradycardia. [facility] 12-06-2024 Note LENNIE MEADE CARDIOL OGY [...] Reported on 06/30/2023) 120 capsule 0 HYDROcodone-acetaminophen (Sunbury) 5-325 mg tablet Take 1 tablet by [...] Mucous membranes are (more content not included)... [facility] 10-27-2024 Note LENNIE MEADE CARDIOL LEILANI [...] takes less th (more content not included)... [facility] 05-10-2023 Evaluation note Encounter Date Diagnosis [...] You may also follow-up with an director of market research if no improvement. Go to the ER for worsening symptoms or concerns May, Left ear impacted cerumen (ICD-10 - H61.22) Cerumen impaction home care material was printed May, Right ear impacted cerumen (ICD-10 - H61.21) [facility] Other 04-07-2023 NoteChief Complaint consultation for umbilical [...] STUART MD, SUR Only if needed [address] [facility] [place] [address]- Additional Instructions: Problem List/Past Medical History Ongoing [...] Tobacco - Denies T (more content not included)...[facility] Comment on above:Result Comment: Electronically Signed By: Colt STUART MD\.br\Date and Time Signed: 01/09/23 15:56 [id number] Hospital Discharge instructions Follow Up Care 12/18/2022 13:20:00 With:Colt STUART MD, SUR Address: [address] [place] [address] [place] [address]- When: only if needed General Surgery [place] Evaluation + Plan note No data available for this section General Surgery [place] History general Narrative - Reported* Type Description Date Medical History GERD Medical History HYPERLIPIDEMIA Hospitalization History KNEE CELLULITIS [facility] Other Progress note No data available for this section General Surgery [place] Summary Purpose Family History No Family History Records FoundNo Family History Records FoundNo Family History Records Found Advance Directives No Advanced Directives Records FoundNo Advanced Directives Records FoundNo Advanced Directives Records Found Additional Source Comments Patient Care team informatio n (unrecognized section and content) Personnel Name: Lauren Velasquez MD Address: Address: [address] [place], [place] [address] (unrecognized sect ion and content) No Status Records FoundNo Status Records FoundNo Status Records Found INFORMATION SOURCE (unrecogn ized section and content) DATE CREATED AUTHOR 01/11/2023 [facility] DATE CREATED AUTHOR AUTHOR'S ORGANIZ ATION 02/13/2023 [facility] DATE CREATED AUTHOR AUTHOR'S ORGANIZ ATION 07/13/2025 [facility] REASON FOR VISIT (unrecogniz [...] BE BASED ON THE PRIMARY CLINICAL RECORDS. [employer] provides no warranty or guarantee of the accuracy or completeness of information in this document.
--- NOTE | 2025-07-21 14:30 | CA_ITS ---
Patient Name: FLYNN ARNETT MR#: [id number] : 1965 Exam Date: 07/21/2025 Ordering Doctor: DR DANIEL JACOB M.D. ECHOCARDIOGRAM REPORT PROCEDURE: CA ECHO LIMITED INDICATIONS: Acute on chronic systolic heart failure, atrial fibrillation- ablation, pacemaker COMPARISON: None. DESCRIPTION: Limited ECHOCARDIOGRAM Real-time transthoracic echocardiography with 2D and M-mode performed. QUALITY: Technical quality was good. Limited echocardiogram per physician order. LEFT VENTRICLE: Normal chamber size. Mild concentric left ventricular hypertrophy. Normal systolic function. Estimated left ventricular ejection fraction is 65%. LV EF: Normal left ventricular ejection fraction, (>55%). DIASTOLIC: ATRIAL SEPTUM: LEFT ATRIUM: Moderate dilatation. RIGHT ATRIUM: Moderate dilatation. RIGHT VENTRICLE: Mild dilatation. Normal systolic function. Pacer wire present. TRICUSPID VALVE: Normal mobility and thickness. MITRAL VALVE: Evidence of prior mitral valve ring and repair. AORTIC VALVE: Normal trileaflet appearance. No visible sclerosis. Normal leaflet mobility. AORTIC ROOT: Normal diameter and appearance, measuring 3.8 cm. PULMONIC VALVE: Normal thickness and mobility. PERICARDIUM: No evidence of pericardial effusion. IVC: Collapses with inspiration. PLEURA: CONCLUSION: 1. Mild concentric left ventricular hypertrophy with normal systolic function. Estimated LVEF is 65%. 2. Mildly dilated right ventricle with normal systolic function. 3. Moderate biatrial dilatation. 4. Limited study performed with no Doppler interrogation as requested. Adult Echocardiography Procedure Report Left Ventricle LVEDD (3.7 - 5.6 cm): 4.63 cm LVESD (2.2 - 4.0 cm): 3.24 cm LVIVS thickness (0.6 - 1.2 cm): 1.19 cm LVPW thickness (0.5 - 1.0 cm): 1.19 cm LVOT Diameter 2.46 cm Left Ventricular Ejection Fraction: 65 % Left Atrium LA Volume Index (2D A2C): 44.03 ml/m2 Left Atrium Systolic Dimension: 4.04 cm Mitral Valve Right Ventricle Aorta AO Root Diam: 3.79 cm Aortic Valve Tricuspid Valve Pulmonic Valve Right Atrium Right Atrium Systolic Pressure: 75.37 ml, 75.37 ml Dictated by: Rony Flowers M.D. on 07/21/2025 at 18:35 Approved by: Rony Flowers M.D. on 07/21/2025 at 18:39
== END 2025-07-21 14:23 | disposition home or self-care (01) ==
LOC: CARD 14:22
PROVIDERS: PCP Family Medicine; Visit Provider Internal Medicine Interventional Cardiology
DX: I50.23 Acute on chronic systolic (congestive) heart failure (principal); I48.0 Paroxysmal atrial fibrillation
CPT/HCPCS: 93308

== ENCOUNTER 2025-08-08 08:31 | Outpatient (OUT) | payer BC, SELFPAY ==
--- OUTSIDE RECORDS SUMMARY | 2025-08-08 08:36 | XMS_ITS | Clinical Summary ---
Author Organization [facility] Address [address] [address] Care Team Providers Care Belting Inspector Name Role Phone Giovanni Velasquez MD Primary Care Provider [phone] Akiko Fernandez MD Unavailable [phone] Allergies No known active allergies Medications MedicationSigDispense QuantityRefillsLast FilledStart DateEnd DateStatus pantoprazole (ProtoNix) 40 mg EC tablet Take 40 mg by mouth before breakfast.01/08/2023ctive ezetimibe (Zetia) 10 mg tablet Indications:Mitral valve regurgitation congenitalTake 1 tablet (10 mg) by mouth in the morning. 30 tablet 06/05/2023ctive simvastatin (Zocor) 20 mg tablet Take 20 mg by mouth at bedtime.01/08/2023ctive aspirin 81 mg EC tablet Take 81 mg by mouth in the morning.Active HYDROcodone-acetaminophen ([place]) 5-325 mg tablet Take 1 tablet by mouth every 4 (four) hours if needed.10/13/2024tive dapagliflozin propanediol (Farxiga) 10 mg Indications:Chronic heart failure with preserved ejection fraction (CMS/HCC)Take 1 tablet (10 mg) by mouth in the morning. 90 tablet ctive Additional Information Patient not taking.Reported on 07/11/2025 carvedilol (Coreg) 3.125 mg tablet Indications:Essential hypertensionTake 1 tablet (3.125 mg) by mouth with breakfast and with evening meal. 180 tablet /ctive Additional Information Patient not taking.Reported on 07/11/2025 lisinopril 10 mg tablet Indications:Essential hypertensionTake 1 tablet (10 mg) by mouth in the morning. 90 tablet 5036Active furosemide (Lasix) 20 mg tablet Indications:Essential hypertensionTake 1/2 tablet daily 90 tablet 5Active Additional Information Patient not taking.Reported on 07/11/2025 dilTIAZem CD (Cardizem CD) 120 mg 24 hr capsule Indications:Paroxysmal atrial fibrillation (CMS/HCC)Take 1 capsule (120 mg) by mouth once daily as directed. 90 capsule /ctive metoprolol succinate XL (Toprol-XL) 25 mg 24 hr tablet Indications:Paroxysmal atrial fibrillation (CMS/HCC)Take 1 tablet (25 mg) by mouth in the morning. STOP CARVEDILOL 90 tablet ctive amiodarone (Pacerone) 200 mg tablet Indications:Paroxysmal atrial fibrillation (CMS/HCC)Take 1 tablet (200 mg) by mouth in the morning. 90 tablet //ctive apixaban (Eliquis) 5 mg tablet Indications:Paroxysmal atrial fibrillation (CMS/HCC)Take 1 tablet (5 mg) by mouth two times daily. 180 tablet 5Active Active Problems ProblemNoted DateDiagnosed DateAcute non-ST segment elevation myocardial hdxynhwmdu57/07/2025rthritis of right knee07/11/2025ardiac pacemaker in situ 07/11/2025hest pain07/11/2025Dilatation of aorta07/11/20257635Cnmsquu68/07/2025PAF (paroxysmal atrial fibrillation)03/07/20258949Ymlnrmtdxdo60/14/2025 Assessment & Plan (01/16/2025 8:14 PM EDT): Tentatively plan dual chamber pacemaker implant tomorrow for symptomatic bradycardia. Angina pectoris, earsweqz11/14/2025 Assessment & Plan (01/16/2025 8:14 PM EDT): Given chest pain and shortness of breath with modest activity, especially with new bradycardia, plan coronary angiography tomorrow to exclude significant CAD that could explain symptoms and bradycardia. Sick sinus aqxyeiah80/14/2025neurysm of aortic root10/30/2023 Assessment & Plan (04/15/2024 3:44 PM EDT): Aortic dilitation remains stable Will repeat Echocardiogram in 1 year D/w pt importance of statin and HTN management and he voiced understanding Cardiorenal vwleuuyo24/28/2023hronic heart failure with preserved ejection xagcjcwc22/28/2023 Assessment & Plan (04/15/2024 3:41 PM EDT): [facility] I currently euvolemic without exacerbation HE has stopped jardiance and lasix r/t lightheadedness/dizzyness and symptoms have resolved. He haslost weight since his last visit and overall doing well. Monitor daily weights, I&O, fluid restriction 1.5-2L/day, renal function and electrolytes- Ktjeatpqzeob69/27/2023ulmonary lamefewqsj19/27/6211Yrkmyfbzkid42/25/2023cute blood loss as cause of postoperative locihd6705/29/2023cute respiratory insufficiency, rflijrnhjukyc94/24/2023rimary augjzjggitbl32/24/2023 Assessment & Plan (04/15/2024 3:43 PM EDT): Hypertension is currently controlled- he has stopped taking coreg, lasix and jardiance- He does monitor b/p at home and typically b/p remains < 130/80 Mitral valve regurgitation jrdkverhti35/23/2023 Assessment & Plan (04/15/2024 3:42 PM EDT): stable Chronic reactive otitis externa of left ear/ardiomegaly /Infective otitis xzetupg35Mitral valve itimecl3404/30/2023 Assessment & Plan (04/15/2024 3:42 PM EDT): S/P MV repair- ring Ring with normal doppler flows on TTE No concerning symptoms currently Rarsvofv69/12/2023ERD (gastroesophageal reflux disease)01/14/2023Hyperlipidemia 01/14/20236211Udnypl95/12/2023MI 36.0-36.9,adult01/14/20234763Flmknoq39/12/2023 Csjlxbbpjhh70/12/2023Restless leg /12/2023Umbilical hernia, /12/2023Mitral valve firtakmo74/12/2023 Overview (01/14/2023): Added automatically from request for surgery [id number] Resolved Problems ProblemNoted DateDiagnosed DateResolved DateNYHA class 2 congestive heart failure with preserved left ventricular Encounters DateTypeDepartmentCare XepqVhlidhnebng32/21/2025Telephone [facility] [address] [facility] [place] [address] Pooja Carrasco MA 07/24/2025Orders Only [facility] [address] [facility] [place] [address] ProviderMarisa MD 07/11/2025 9:00 AM EDTOffice Visit [facility] [address] [facility] [address] Darryn Lundy MD PAF (paroxysmal atrial fibrillation) (CMS/HCC) (Primary Dx)06/19/2025[facility] [address] [facility] [place] [address] Giovana Branch MA Paroxysmal atrial fibrillation (CMS/HCC)06/19/2025[facility] [address] [facility] [place] [address] Pooja Carrasco MA Paroxysmal atrial fibrillation (CMS/HCC)06/13/2025Telephone [facility] [address] [place] [address] Harper Marie RN BP and HR vqabnpz4506/09/2025Telephone [facility] [address] [place] [phone] Harper Marie RN week f/u post tdooemlo83/27/2025 12:42 PM EDTAnesthesia Event [facility] [place] [facility] [address] [place] [address] Curt Azul MD Stimes, Nicholas, MD 05/31/2025 11:30 AM EDT - 05/31/2025 2:30 PM EDTSurgery [facility] [address] [place] [address] Darryn Lundy MD Ablation a-fib w/ pvi [45105 (CPT??)]05/31/2025 10:19 AM EDT - 05/31/2025 7:07 PM EDTHospital Encounter [facility] [address] [address] Darryn Lundy MD Paroxysmal A-fib (CMS/HCC); PAF (paroxysmal atrial fibrillation) (CMS/HCC) Discharge Disposition: Home or Self Care (01)05/31/20250082Npviui82/19/2025Telephone [facility] [address] [place] [address] Pooja Carrasco MA 05/23/2025Orders Only [facility] [address] [place] [address] Marisa Christianson MD 05/20/2025Refill [facility] [address] [place] [address] Darryn Lundy MD Paroxysmal atrial fibrillation (CMS/HCC)05/19/2025 11:40 AM EDTAncillary Procedure [facility] [address] [place] [address] Adjustment and management of cardiac yluxpqdcg71/15/2025Orders Only [facility] [address] [place] [address] Darryn Lundy MD 05/19/20255810Cwsldz55/06/2025 8:30 AM EDTAnesthesia Event [facility] [place] [facility] [address] [place] [address] Adrienne Bruno MD 05/10/2025 6:57 AM EDT - 05/10/2025 7:39 AM EDTHospital Encounter [facility] [place] [facility] [address] [place] [address] Darryn Lundy MD PAF (paroxysmal atrial fibrillation) ([facility]) Discharge Disposition: Home or Self Care (01)05/10/20251564Nzuppp75/04/2025Travel from Last 3 Months Family History Medical HistoryRelationNameCommentsNo Known ProblemsFatherNo Known Problems MotherRelationNameStatusCommentsFatherAliveMotherDeceased Social History Tobacco UseTypesPacks/DayYears UsedDateSmoking Tobacco: NeverSmokeless Tobacco: NeverAlcohol UseStandard Drinks/WeekCommentsNot Currently0 (1 standard drink = 0.6 oz pure alcohol)[facility] UtilitiesAnswerDate RecordedIn the past 12 months has the electric, gas, oil, or water [employer] threatened to shut off services in your home?No01/16/2025Humiliation, Afraid, Rape, and Kick questionnaireAnswerDate RecordedWithin the last year, have you been afraid of your partner or ex-partner?No01/16/2025Emotionally AbusedNot on file01/16/2025Physically Abused Not on file01/16/2025Sexually AbusedNot on file01/16/2025Overall Financial Resource Strain (CARDIA)AnswerDate RecordedHow hard is it for you to pay for the very basics like food, housing, medical care, and heating?Not hard at all 01/16/2025PHQ-2AnswerDate RecordedPatient Health Questionnaire-2 Score0 06/18/2023TransportationAnswerDate RecordedIn the past 12 months, has lack of transportation kept you from medical appointments or from getting medications?No 01/16/2025Lack of Transportation (Non-Medical)Not on file01/16/2025Housing Stability Vital SignAnswerDate RecordedIn the last 12 months, was there a time when you were not able to pay the mortgage or rent on time?No01/16/2025Number of Times Moved in the Last YearNot on file01/16/2025t any time in the past 12 months, were you homeless or living in a care home (including now)?No01/16/2025 Hunger Vital SignAnswerDate RecordedWithin the past 12 months, you worried that your food would run out before you got the money to buymore.Never true01/16/2025 Ran Out of Food in the Last YearNot on file01/16/2025Sex and Gender Information ValueDate RecordedSex Assigned at RxygzDknf59/16/2025 8:54 AM EDTLegal SexMale 12/18/2022 11:52 AM EDTGender GzhvozozFckn52/16/2025 8:54 AM EDTSexual OrientationHeterosexual or Xgoolguz22/10/2023 10:26 AM EDT Last Filed Vital Signs Vital SignReadingTime TakenCommentsBlood Ievqddcy297/8910 9:08 AM EDT Ywgnf249107/11/2025 9:08 AM IHLOurvztkcoxa50.2 ??C (97.2 ??F)05/31/2025 3:55 PM EDTRespiratory Fhqa839605/31/2025 6:55 PM EDTOxygen Datbawdghv36%07/11/2025 9:08 AM EDTInhaled Oxygen Concentration--Ecvoho705 kg (225 lb)07/11/2025 9:08 AM EDT Ckdfer682.3 cm (5' 9 )07/11/2025 9:08 AM EDTBody Mass Index33.231 9:08 AM EDT Plan of Treatment DateTypeDepartmentCare Team (Latest Contact Info)Nwnyxzffoyc62/04/2025 11:00 AM ESTAncillary Procedure [facility] [address] [place] [address] Health MaintenanceDue DateLast DoneCommentsCT Kqsztfazazkz1967Colonoscopy 1967Colorectal Cancer Tjienvqtk1967FIT-DNA1967FIT1967 FOBT1967 3922Sxggztbtrdqrk1967Diabetes: Retinopathy Ajfqhudlg52/27/1977 Depression Tzrccalun39/27/1979Diabetes: Urine Protein Rfbbtxizo24/27/1986 Hepatitis B Vaccines (1 of 3 - 19+ 3-dose series)1986Pneumococcal Vaccine: Pediatrics (0 to 5 Years) and At-Risk Patients (6 to 64 Years) (1 of 2 - PCV) 1986Adult Rinhvip9807/31/1989Zoster Vaccines (1 of 2)2017Diabetes: Hemoglobin A1C504/, 05/14/2023OVID-19 Vaccine ( - season)2025Influenza Vaccine (#1)HIB VaccinesAged Out No longer eligible based on patient's age to complete this topicHPV VaccinesAged OutNo longer eligible based on patient's age to complete this topicIPV Vaccines Aged OutNo longer eligible based on patient's age to complete this topic Meningococcal B VaccineAged OutNo longer eligible based on patient's age to complete this topicMeningococcal VaccineAged OutNo longer eligible based on patient's age to complete this topicRotavirus VaccinesAged OutNo longer eligible based on patient's age to complete this topic Medical Devices ImplantedTypeAreaManufacturerDevice IdentifierShelf Expiration DateModel / Serial / LotAtricure Atriclip Flex-V 35 Implanted:Qty: 1 on 05/27/2023 [facility]Clip[facility]/A: [id number] / / [id number]:Trial no charge per rep, should be Yoli Carroll S 53 - [id number] - [id number] Implanted:Qty: 1 on 01/17/2025 by [facility]LeadN/A: [id number] / [id number] / Lead,Lucinda Kent 45 - [id number] - [id number] Implanted:Qty: 1 on 01/17/2025 by [facility]A: [id number] / [id number] / [id number] Yoli S 45 [id number] Implanted:01/17/2025 (Quantity not on file)[id number] 176 YOLI S 45 / [id number] / [id number] Nahomiia S 53 [id number] Implanted:01/17/2025 (Quantity not on file)[id number] 177 YOLI S 53 / [id number] / Pacemaker,Amvia Damaso Sood - [id number] - [id number] Implanted:Qty: 1 on 01/17/2025 by [facility]PacemakerN/A: [id number] / [id number] / [id number] Myra Sood [id number] Implanted:01/17/2025 (Quantity not on file)[id number] MYRA SOOD / [id number] / BandVentura Ancore,35mm - [id number] - [id number] Implanted:Qty: 1 on 05/27/2023 by [facility] HospitalProsthetic ValveN/A: HeartMEDTRONIC INCORPORATED [id number] / [id number] / Procedures Procedure NamePriorityDate/TimeAssociated DiagnosisCommentsLIMITED ECHO (TTE) W/WO LIMITED DOPPLER, COLOR FLOW, IMAGING AGENT, STRAIN, 3D, BUBBLE STUDYRoutine 07/21/2025 8:55 AM EDTECG 12 LEAD UNIT QTXWSITADRgllmkl07/07/2025 9:05 AM EDT PAF (paroxysmal atrial fibrillation) (CMS/HCC) ECG 12-RTFORqdwwxz10/27/2025 5:21 PM EDT ABLATION A-FIB W/ LKDAzoaenu81/27/2025 3:33 PM EDT Paroxysmal A-fib (CMS/HCC) ACTIVATED CLOTTING BKPTGrkzaqj99/27/2025 2:59 PM EDT BILIRUBIN, MUJAXQPwnrcmm45/27/2025 2:40 PM EDT BILIRUBIN, RMLSLLurghwu51/27/2025 2:40 PM EDT BSGDOOHFYMJLmkdbgi25/27/2025 2:40 PM EDT ZNPNSUNFKSRpybukb51/27/2025 2:40 PM EDT HIGH SENSITIVITY TROPONIN DQpckmqz46/27/2025 2:40 PM EDT LACTATE DGNTBZZTGHKDSUruvrbw49/27/2025 2:40 PM EDT ACTIVATED CLOTTING GNUGTwbfvig77/27/2025 2:34 PM EDT ACTIVATED CLOTTING IIWHTwqcoxy83/27/2025 2:11 PM EDT ACTIVATED CLOTTING XNHNDxrrtnb86/27/2025 1:53 PM EDT ACTIVATED CLOTTING XFLRVkajvpu90/27/2025 1:30 PM EDT TN AN ELECTIVE ENDOTRACHEAL AGNKUTPxwrgac19/27/2025 1:07 PM EDT ANESTHESIA ARTERIAL LINE EAIHLQLBAVgpizmt72/27/2025 12:01 PM EDT ECG 12-HDBVTdyhixo06/27/2025 11:16 AM EDT PROTIME-MCQHmbhdtp35/27/2025 10:57 AM EDT POCT GLUCOSE METER UNSOLICITED RQJCJJPJgobzgj11/27/2025 10:48 AM EDT COMPLETE TRANSTHORACIC ECHO (TTE) W/WO IMAGING AGENT, STRAIN, 3D, BUBBLE STUDY Yexhhah4105/23/2025 12:00 PM EDTCARDIAC DEVICE CHECK CHECK - REMOTERoutine 05/23/2025 9:45 AM EDT Adjustment and management of cardiac pacemaker CARDIAC DEVICE CHECK - REMOTE - CWTPNDFMKHcmittu10/15/2025 12:00 AM EDTPOCT GLUCOSE METER UNSOLICITED GDYDMZAGowavmt63/06/2025 7:25 AM EDT HEMOGLOBIN N9PFyt-Zp91/14/2025 3:09 PM EDT from Last 3 Months or Most Recently Relevant to Health Maintenance Results * Limited Echo (TTE) w/wo Limited Doppler, Color Flow, Imaging Agent, Strain, 3D, Bubble Study (07/21/2025 8:55 AM EDT)Anatomical RegionLateralityModality Ultrasound Narrative Authorizing ProviderResult TypeResult StatusHistorical Provider [facility] ECHO PROCEDURESFinal Result * ECG 12 lead unit performed (07/11/2025 9:05 AM EDT)Specimen (Source)Anatomical Location / LateralityCollection Method / VolumeCollection TimeReceived Time Narrative Authorizing ProviderResult TypeResult StatusPaeliot Lundy MDECG ORDERABLESFinal Result * ECG 12 lead (05/31/2025 5:21 PM EDT) Only the most recent of2 resultswithin the time period is included. ComponentValueRef RangeTest MethodAnalysis TimePerformed AtPathologist Signature Ventricular Cbzl01QXZEB MUSEAtrial Npcl52YUJHX MUSEPR Vbikbcac069hhZF MUSEQRS CLQSXGPI903tbCT MUSEQT Sgxpfkiv847zdHC MUSEQTC CALCULATION(BAZETT)503msGE MUSEP [place]-89degreesGE UDVBN-Jivm-20qbvxjbtIR MUSET Wave Fyua97lwcduzvOF MUSESpecimen (Source)Anatomical Location / LateralityCollection Method / VolumeCollection TimeReceived Time05/31/2025 4:59 PM EDT05/31/2025 6:11 PM EDT Impressions GE MUSE - [...] SAMER J. (59) on 05/31/2025 6:11:54 PM Authorizing ProviderResult TypeResult StatusPaul Kamron JONES ORDERABLESFinal ResultPerforming OrganizationAddressCity/State/ZIP CodePhone Number GE MUSE * ABLATION A-FIB W/ PVI (05/31/2025 3:33 PM EDT)Anatomical RegionLaterality ModalityOtherSpecimen (Source)Anatomical Location / LateralityCollection Method / VolumeCollection TimeReceived Time Narrative 06/09/2025 5:12 PM EDT Table formatting from the original result was not included. ATRIAL FIBRILLATION ABLATION PROCEDURE NOTE DATE OF PROCEDURE: ??05/31/2025 PERFORMING PHYSICIAN: Dr. Darryn Lundy HORSE RACING MANAGER: CHAYO CONSENT: Patient NAME OF THE PROCEDURE: [...] device check. FLUROSCOPY: 16.4min/ 171mGray EBL: 25cc ?? PROCEDURE NOTE: Pt was brought to EP lab and she was in sinus rhythm, so RHONDA was deferred. Thereafter, we proceeded to do atrial fibrillation ablation. ??Both the groins were then prepared and draped. [...] in the flower configuration in each veins. ??This led to complete isolation of each vein. Repeat mapping with Octoray catheter revealed isolation of all 4 veins. ?? Exit block verified with pacing from each [...] observation bay for observation. LA baseline (mmHg) ??15/2 HR 60bpm LA 600ms pacing (mmHg) 20/14 LA 400ms pacing (mmHg) NA AHms 126 HVms 83 VERPms 600/300, VA condunction - AV Wenkebach ms 570ms ?? AH jump ms NA AVNERP ms 600 AERP ms 600/350 POST PROCEDURE DIAGNOSIS 1. Paroxysmal atrial fibrillation s/p PVI (WACA) with PFA. ?? 2. CTI flutter s/p ablation with bidirectional [...] Groin precautions. Darryn Lundy MD Cardiac Electrophysiology ?? Authorizing ProviderResult TypeResult StatusPaeliot Lundy MDCV ELECTROPHYSIOLOGY PROCEDURESFinal Result * (ABNORMAL) Activated clotting time (05/31/2025 2:59 PM EDT) Only the most recent of5 resultswithin the time period is included. ComponentValueRef RangeTest MethodAnalysis TimePerformed AtPathologist Signature Activated Clotting Pekb605(H)82 - 152 s005/31/2025 3:36 PM [facility] ([facility])Specimen (Source)Anatomical Location / LateralityCollection Method / VolumeCollection TimeReceived TimeBloodVenous blood specimen / Hzadufw6205/31/2025 2:59 PM EDT05/31/2025 3:36 PM EDT Narrative Authorizing ProviderResult TypeResult Todd WALKER POINT OF CARE TEST DOCKED DEVICE UNSOLICITED RESULTSFinal ResultPerforming OrganizationAddress City/State/ZIP CodePhone Number [facility] ([facility]) [address] [place] [address] * (ABNORMAL) High Sensitivity Troponin I (05/31/2025 2:40 PM EDT)ComponentValue Ref RangeTest MethodAnalysis TimePerformed AtPathologist SignatureHigh Sensitivity Troponin I264(HH)<20 ng/L05/31/2025 3:31 PM [facility] ([facility])Specimen (Source)Anatomical Location / LateralityCollection Method / VolumeCollection TimeReceived TimeBloodVenous blood specimen / UnknownArterial Line / Ptoemhl6405/31/2025 2:40 PM EDT05/31/2025 2:43 PM EDT Narrative Authorizing ProviderResult TypeResult Todd WALKER BLOOD ORDERABLES Final ResultPerforming OrganizationAddressCity/State/ZIP CodePhone Number [facility] ([facility]) [address] [place] [address] * Hemoglobin (05/31/2025 2:40 PM EDT)ComponentValueRef RangeTest MethodAnalysis TimePerformed AtPathologist KeqkasbeuZqllyvuzyg27.313.0 - 17.0 g/dL05/31/2025 3:06 PM [facility] ([facility])Specimen (Source)Anatomical Location / LateralityCollection Method / VolumeCollection TimeReceived TimeBloodVenous blood specimen / UnknownArterial Line / Exloydg6905/31/2025 2:40 PM EDT 05/31/2025 2:43 PM EDT Narrative Authorizing ProviderResult TypeResult StatusDarryn WALKER BLOOD ORDERABLES Final ResultPerforming OrganizationAddressCity/State/ZIP CodePhone Number [facility] ([facility]) [address] [place] [address] * Lactate dehydrogenase (05/31/2025 2:40 PM EDT)ComponentValueRef RangeTest MethodAnalysis TimePerformed AtPathologist YcfdllyytUD725649 - 271 U/L 05/31/2025 3:19 PM [facility] ([facility])Specimen (Source)Anatomical Location / LateralityCollection Method / VolumeCollection TimeReceived Time BloodVenous blood specimen / UnknownArterial Line / Chabars7905/31/2025 2:40 PM EDT05/31/2025 2:43 PM EDT Narrative Authorizing ProviderResult TypeResult StatusDarryn Lundy MDLAB BLOOD ORDERABLES Final ResultPerforming OrganizationAddressCity/State/ZIP CodePhone Number [facility] ([facility]) [address] [place] [address] * Haptoglobin (05/31/2025 2:40 PM EDT)ComponentValueRef RangeTest MethodAnalysis TimePerformed AtPathologist OfunhlretQbdpikuvlpf78.032.0 - 197.0 mg/dL 06/01/2025 12:56 PM EDTCIBOL[facility] ([facility])Comment:Testing performed using a new methodology, turbidimetry. Normal ranges have been updated. Old normal range was 26-164 mg/dL.Specimen (Source)Anatomical Location / LateralityCollection Method / VolumeCollection TimeReceived TimeBloodVenous blood specimen / UnknownArterial Line / Lonwgvj8605/31/2025 2:40 PM EDT 05/31/2025 2:43 PM EDT Narrative Authorizing ProviderResult TypeResult StatusDarryn WALKER BLOOD ORDERABLES Final ResultPerforming OrganizationAddressCity/State/ZIP CodePhone Number [facility] ([facility]) [address] [place] [address] * Bilirubin, direct (05/31/2025 2:40 PM EDT)ComponentValueRef RangeTest Method Analysis TimePerformed AtPathologist SignatureBilirubin, Direct0.10 - 0.2 mg/dL05/31/2025 3:19 PM [facility] ([facility])Specimen (Source) Anatomical Location / LateralityCollection Method / VolumeCollection Time Received TimeBloodVenous blood specimen / UnknownArterial Line / Unknown 05/31/2025 2:40 PM EDT05/31/2025 2:43 PM EDT Narrative Authorizing ProviderResult TypeResult StatusDarryn Lundy MDLAB BLOOD ORDERABLES Final ResultPerforming OrganizationAddressCity/State/ZIP CodePhone Number [facility]) [address] [place] [address] * Bilirubin, total (05/31/2025 2:40 PM EDT)ComponentValueRef RangeTest Method Analysis TimePerformed AtPathologist SignatureTotal Bilirubin0.60.3 - 1.0 mg/dL05/31/2025 3:19 PM [facility] ([facility])Specimen (Source) Anatomical Location / LateralityCollection Method / VolumeCollection Time Received TimeBloodVenous blood specimen / UnknownArterial Line / Unknown 05/31/2025 2:40 PM EDT05/31/2025 2:43 PM EDT Narrative Authorizing ProviderResult TypeResult Todd WALKER BLOOD ORDERABLES Final ResultPerforming OrganizationAddressCity/State/ZIP CodePhone Number [facility]) [address] [place] [address] * TN AN ELECTIVE ENDOTRACHEAL AIRWAY (05/31/2025 1:07 PM EDT) Narrative Sonja Mccarty MD - 05/31/2025 1:07 PM EDT Sonja Mccarty MD 05/31/2025 2:43 PM Airway Date/Time: 05/31/2025 1:07 PM Reason: elective Airway not difficult General Information and Staff Patient location during procedure: [place] Anesthesiologist: Sonja Mccarty MD Performed: resident/PROVIDER RELATIONS COORDINATOR/CAA Patient Condition Indications for airway management: anesthesia Patient position: sniffing Planned trial extubation Sedation level: deep Final Airway Details Preoxygenated: yes Final airway type: endotracheal airway Successful airway: ETT Cuffed: yes Successful intubation technique: video laryngoscopy Adjuncts used in placement: intubating stylet Endotracheal tube insertion site: oral Blade: iNx Blade size: #3 ETT size (mm): 8.0 Cormack-Lehane Classification: grade I - full view of glottis Placement verified by: chest auscultation and capnometry Measured from: lips ETT to lips (cm): 23 Number of attempts at approach: 1 Number of other approaches attempted: 0 Authorizing ProviderResult TypeResult StatusSonja CHOWDHURY ORDERABLESFinal Result * ANESTHESIA ARTERIAL LINE PLACEMENT (05/31/2025 [...] And Ultrasound probe cover. VSS. Staffing Performed: resident/PROVIDER RELATIONS COORDINATOR/CAA Anesthesiologist: Sonja Mccarty MD Resident/PROVIDER RELATIONS COORDINATOR: Damien Barnes MD Performed by: Damien Barnes MD Authorized by: Sonja Mccarty MD ?? Authorizing ProviderResult TypeResult Tyrell CHOWDHURY ORDERABLESFinal Result * Protime-INR (05/31/2025 10:57 AM EDT)ComponentValueRef RangeTest Method Analysis TimePerformed AtPathologist NwqoqsbfnLxfnlqc47.512.3 - 14.8 Seconds 05/31/2025 11:28 AM [facility] ([facility])INR1.030.90 - 1.1008 11:28 AM [facility]Comment: [facility] RECOMMENDED INR FOR WARFARIN THERAPY CONDITION ?INR PROPHYLAXIS OF VENOUS THROMBOSIS ? 2-3 (HIGH-RISK SURGERY) TREATMENT OF VENOUS THROMBOSIS ? 2-3 TREATMENT OF PULMONARY EMBOLISM ?2-3 PREVENTION OF SYSTEMIC EMBOLISM: ? 2-3 ?ACUTE MYOCARDIAL INFARCTION ?TISSUE HEART VALVES ?VALVULAR HEART DISEASE ?ATRIAL FIBRILLATION ?RECURRENT SYSTEMIC EMBOLISM MECHANICAL HEART VALVE ? 2.5-3.5 FROM: ORAL ANTICOAGULANTS. ??MECHANISM OF ACTION, CLINICAL EFFECTIVENESS, AND OPTIMAL THERAPEUTIC RANGE. ??CHEST 1995;108:231S-246S. Specimen (Source)Anatomical Location / LateralityCollection Method / Volume Collection TimeReceived TimeBloodVenous blood specimen / UnknownVenipuncture / Styunfq6105/31/2025 10:57 AM EDT05/31/2025 11:00 AM EDT Narrative Authorizing ProviderResult TypeResult StatusPaeliot WALKER BLOOD ORDERABLES Final ResultPerforming OrganizationAddressCity/State/ZIP CodePhone Number [facility] ([place]) [address] [place] [address] * (ABNORMAL) POCT glucose meter (05/31/2025 10:48 AM EDT) Only the most recent of2 resultswithin the time period is included. ComponentValueRef RangeTest MethodAnalysis TimePerformed AtPathologist Signature Glucose XBM535(H)70 - 105 mg/dL05/31/2025 11:11 AM [facility] ([place] Comment:ngrothaSpecimen (Source)Anatomical Location / LateralityCollection Method / VolumeCollection TimeReceived TimeBloodCapillary blood specimen / Vzmmtin2305/31/2025 10:48 AM EDT05/31/2025 11:11 AM EDT Narrative [facility] - 05/31/2025 11:11 AM EDT Waived Testing in the ED is performed under the ED CLIA certificate #[id number]. Authorizing ProviderResult TypeResult Todd WALKER BLOOD ORDERABLES Final ResultPerforming OrganizationAddressCity/State/ZIP CodePhone Number [facility] [address] [place] [address] * Complete Echo (TTE) w/wo Imaging Agent, Strain, 3D, Bubble Study (05/23/2025 12:00 PM EDT)Anatomical RegionLateralityModalityUltrasound Narrative Authorizing ProviderResult TypeResult StatusHistorical Provider [facility] ECHO PROCEDURESFinal Result * CARDIAC DEVICE CHECK - REMOTE - PACEMAKER (05/23/2025 9:45 AM EDT)Specimen (Source)Anatomical Location / LateralityCollection Method / VolumeCollection TimeReceived Time Narrative Authorizing ProviderResult TypeResult Todd Lundy [facility] IMPLANTABLE CARDIAC DEVICE PROCEDURESFinal ResultPerforming OrganizationAddressCity/State/ZIP Code Phone Number [facility] * Cardiac device check - Remote pacemaker (05/19/2025 12:00 AM EDT)Anatomical RegionLateralityModalityOtherSpecimen (Source)Anatomical Location / Laterality Collection Method / VolumeCollection TimeReceived Time05/19/2025 Narrative Authorizing ProviderResult TypeResult Todd Lundy [facility] IMPLANTABLE CARDIAC DEVICE PROCEDURESFinal Result * (ABNORMAL) Hemoglobin A1c (01/16/2025 3:09 PM EDT)ComponentValueRef RangeTest MethodAnalysis TimePerformed AtPathologist SignatureHemoglobin A1C6.6(H)4.0 - 6.0 %01/17/2025 10:55 AM [facility] ([place])Estimated Average Vurqmbi526qf/dL01/17/2025 10:55 AM [facility] ([place])Specimen (Source)Anatomical Location / LateralityCollection Method / VolumeCollection TimeReceived TimeBloodVenous blood specimen / UnknownArterial Line / Unknown 01/16/2025 3:09 PM EDT01/16/2025 3:49 PM EDT Narrative Authorizing ProviderResult TypeResult StatusFadi Nicki WALKER BLOOD ORDERABLES Final ResultPerforming OrganizationAddressCity/State/ZIP CodePhone Number [facility] ([place]) [address] [place] [address] from Last 3 Months or Most Recently Relevant to Health Maintenance Insurance Advance Directives * Full Code (Latest Code Status on File) Date ActivatedDate InactivatedComments05/31/2025 4:11 PM05/31/2025 9:08 PM * Full Code Date ActivatedDate InactivatedComments01/16/2025 2:38 PM01/18/2025 5:33 PM * Full Code Date ActivatedDate InactivatedComments05/27/2023 2:19 PM06/05/2023 3:54 PM Care Teams Team MemberRelationshipSpecialtyStart DateEnd Date Giovanni Velasquez MD [address] [place] [address] PCP - General01/14/23 Akiko Fernandez MD [address] [place] [address] Audiologist05/25/23
--- OUTSIDE RECORDS SUMMARY | 2025-08-08 08:36 | XMS_ITS | Clinical Summary ---
Author Organization [facility] Address [facility] [place] [address] Care Team Providers Care Moisture Meter Operator Name Role Phone Giovanni Velasquez MD Primary Care Provider [phone] Allergies No known active allergies Medications MedicationSigDispense QuantityRefillsLast FilledStart DateEnd DateStatus diclofenac (Voltaren) 75 MG EC tablet Take 75 mg by mouth in the morning and 75 mg before bedtime.01/08/2023ctive ezetimibe (Zetia) 10 MG tablet Take 10 mg by mouth in the morning.01/07/2023ctive HYDROcodone-acetaminophen ([place]) 5-325 MG tablet Take 1 tablet by mouth every 4 (four) hours if needed.12/12/2022ctive pantoprazole (ProtoNix) 40 MG EC tablet Take 40 mg by mouth in the morning. Take before meals.01/08/2023ctive simvastatin (Zocor) 20 MG tablet Take 20 mg by mouth in the morning.01/08/2023ctive Active Problems ProblemNoted DateDiagnosed DateChronic reactive otitis externa of left ear 05/25/20235356Kghzgdbzulww69/18/9673Aakktzvezragbl42/18/8753Micztrztcfsk78/18/2023 Nonrheumatic mitral (valve) ajkmexbrorhei18/18/2023 Overview (05/22/2023): With prolapse Infective otitis bjzlkfp6905/22/20230034Ndpgdqbe47/12/2023Restless leg syndrome 01/14/2023 Family History Medical HistoryRelationNameCommentsNo Known ProblemsFatherLung cancerMother HypertensionOtherRelationNameStatusCommentsFatherAliveMotherAliveOther Social History Tobacco UseTypesPacks/DayYears UsedDateSmoking Tobacco: NeverSmokeless Tobacco: Never Tobacco Cessation:Counseling Given: Not Answered Alcohol UseStandard Drinks/WeekCommentsYes2 (1 standard drink = 0.6 oz pure alcohol)Sex and Gender InformationValueDate RecordedSex Assigned at BirthNot on fileLegal MesQatg4112/17/2022 6:53 PM EDTGender IdentityNot on fileSexual OrientationNot on file Last Filed Vital Signs Vital SignReadingTime TakenCommentsBlood Hywyjqru329/9708 8:15 AM EDT Pulse--Temperature--Respiratory Rate--Oxygen Saturation--Inhaled Oxygen Concentration--Gopmgt408 kg (234 lb)05/25/2023 8:15 AM ISDDhugca087.3 cm (5' 9 ) 05/25/2023 8:15 AM EDTBody Mass Index34.56005/25/2023 8:15 AM EDT Plan of Treatment Not on file Insurance Care Teams Team MemberRelationshipSpecialtyStart DateEnd Giovanni Velasquez MD PCP - GeneralFamily Medicine05/22/23
--- OUTSIDE RECORDS SUMMARY | 2025-08-08 08:39 | XMS_ITS | Encounter Summary ---
Author Organization [facility] Address [address] [place] [address] Care Team Providers Care Energy Conservation Engineer Name Role Phone Giovanni Velasquez MD Primary Care Provider [phone] Akiko Fernandez MD Unavailable [phone] Encounter Details DateTypeDepartmentCare Team (Latest Contact Info)Gwxbjsppjpw11/21/2025Telephone [facility] [place] [address] [place] [address] Pooja Carrasco MA Social History Tobacco UseTypesPacks/DayYears UsedDateSmoking Tobacco: NeverSmokeless Tobacco: NeverAlcohol UseStandard Drinks/WeekCommentsNot Currently0 (1 standard drink = 0.6 oz pure alcohol)[facility] UtilitiesAnswerDate RecordedIn the past 12 months has the electric, gas, oil, or water company threatened [...] were you homeless or living in a halfway (including now)?No01/16/2025 Hunger Vital SignAnswerDate RecordedWithin the past 12 months, you worried that your food would run out before you got the money to buymore.Never true01/16/2025 Ran Out of Food in the Last YearNot on file01/16/2025Sex and Gender Information ValueDate RecordedSex Assigned at PopoiFdwu85/16/2025 8:54 AM EDTLegal SexMale 12/18/2022 11:52 AM EDTGender BnksgmyxIacq21/16/2025 8:54 AM EDTSexual OrientationHeterosexual or Yzxgxizd58/10/2023 10:26 AM EDTdocumented as of this encounter Functional Status * Are you deaf or do you have serious difficulty hearing?AnswerDate of AesagviupdQalsrePm04/16/2025 1:33 PM Lauren Bryan RN * Are you blind or do you have serious difficulty seeing, even when wearing glasses?AnswerDate of IehryfniusQkhbxzHl59/16/2025 1:33 PM Lauren Bryan, RN * Do you have serious difficulty walking or climbing stairs?AnswerDate of PjxlbjlmjmOjmquwEf89/16/2025 1:33 PM Lauren Bryan RN * Do you have serious difficulty dressing or bathing?AnswerDate of Assessment GtwkrpKv73/16/2025 1:33 PM Lauren Bryan, JOE * Because of a physical, mental, or emotional condition, do you have serious difficulty doing errandsalone such as visiting the doctor?AnswerDate of NocucsobhbVbkevkBh74/16/2025 1:33 PM Lauren Bryan RN documented as of this encounter Mental Status * Because of a physical, mental, or emotional condition, do you have serious difficulty concentrating, remembering, or making decisions? (5 years old or older)AnswerEntry PhwsVhvhupVc33/16/2025 1:33 PM Lauren Bryan RN documented in this encounter Miscellaneous Notes * Telephone Encounter - Pooja Carrasco MA - 07/25/2025 11:08 AM EDT Images from the original note were not included. Regarding echo result from 07/21/2025: Adonis [place] MD to Me (Selected Message) EE 07/24/25 9:20 AM Please reassure him that his ejection fraction is normal Thank you Patient made aware. documented in this encounter Plan of Treatment DateTypeDepartmentCare Team (Latest Contact Info)Jsumxcsjgvf98/04/2025 11:00 AM ESTAncillary Procedure [facility] [address] [place] [id number] documented as of this encounter Visit Diagnoses Not on filedocumented in this encounter Care Teams Team MemberRelationshipSpecialtyStart DateEnd Giovanni Velasquez MD [address] [facility] [address] [address] PCP - General01/14/23 Akiko Fernandez MD [address] [address] Audiologist05/25/23documented as of this encounter
--- OUTSIDE RECORDS SUMMARY | 2025-08-08 08:39 | XMS_ITS | Encounter Summary ---
Author Organization [facility] Address [address] [place] [address] Care Team Providers Care Coating Manager Name Role Phone Giovanni Velasquez MD Primary Care Provider [phone] Akiko Fernandez MD Unavailable [phone] Encounter Details DateTypeDepartmentCare Team (Latest Contact Info)Wofrokmbzek64/20/2025Orders Only [facility] [place] [address] [place] [address] ProviderMarisa MD [address] [place], [place] [id number] Social History Tobacco UseTypesPacks/DayYears UsedDateSmoking Tobacco: NeverSmokeless Tobacco: NeverAlcohol UseStandard Drinks/WeekCommentsNot Currently0 (1 standard drink = 0.6 oz pure alcohol)[facility] UtilitiesAnswerDate RecordedIn the past 12 months has the electric, gas, oil, or water company threatened to shut off services in your home?01/16/2025Humiliation, Afraid, Rape, and Kick questionnaireAnswerDate RecordedWithin the [...] were you homeless or living in a fpc (including now)?No01/16/2025 Hunger Vital SignAnswerDate RecordedWithin the past 12 months, you worried that your food would run out before you got the money to buymore.Never true01/16/2025 Ran Out of Food in the Last YearNot on file01/16/2025Sex and Gender Information ValueDate RecordedSex Assigned at DkpvhNgos77/16/2025 8:54 AM EDTLegal SexMale 12/18/2022 11:52 AM EDTGender RsugrizpCald81/16/2025 8:54 AM EDTSexual OrientationHeterosexual or Kvsvrjsc77/10/2023 10:26 AM EDTdocumented as of this encounter Functional Status * Are you deaf or do you have serious difficulty hearing?AnswerDate of XrkvwullljOxspuqYr52/16/2025 1:33 PM Lauren Bryan RN * Are you blind or do you have serious difficulty seeing, even when wearing glasses?AnswerDate of LzhwmposumCalkcqBn32/16/2025 1:33 PM Lauren Bryan RN * Do you have serious difficulty walking or climbing stairs?AnswerDate of KgbazyubszVxfzgfCr24/16/2025 1:33 PM Lauren Bryan RN * Do you have serious difficulty dressing or bathing?AnswerDate of Assessment TywoygQe98/16/2025 1:33 PM Lauren Bryan, JOE * Because of a physical, mental, or emotional condition, do you have serious difficulty doing errandsalone such as visiting the doctor?AnswerDate of JbrqzpqtomUtjsxiZp24/16/2025 1:33 PM Lauren Bryan, JOE documented as of this encounter Mental Status * Because of a physical, mental, or emotional condition, do you have serious difficulty concentrating, remembering, or making decisions? (5 years old or older)AnswerEntry FvmoGppeodSr87/16/2025 1:33 PM Lauren Bryan RN documented in this encounter Plan of Treatment DateTypeDepartmentCare Team (Latest Contact Info)Bocpzifbfip97/04/2025 11:00 AM ESTAncillary Procedure [facility] [address] [place] [address] documented as of this encounter Procedures Procedure NamePriorityDate/TimeAssociated DiagnosisCommentsLIMITED ECHO (TTE) W/WO LIMITED DOPPLER, COLOR FLOW, IMAGING AGENT, STRAIN, 3D, BUBBLE STUDYRoutine 07/21/2025 8:55 AM EDTdocumented in this encounter Results * Limited Echo (TTE) w/wo Limited Doppler, Color Flow, Imaging Agent, Strain, 3D, Bubble Study (07/21/2025 8:55 AM EDT)Anatomical RegionLateralityModality Ultrasound Narrative Authorizing ProviderResult TypeResult StatusHistorical Provider [facility] ECHO PROCEDURESFinal Result documented in this encounter Visit Diagnoses Not on filedocumented in this encounter Care Teams Team MemberRelationshipSpecialtyStart DateEnd Giovanni Velasquez MD [address] [facility] [address] [address] PCP - General01/14/23 Akiko Fernandez MD [address] [address] Audiologist05/25/23documented as of this encounter
--- OUTSIDE RECORDS SUMMARY | 2025-08-08 08:39 | XMS_ITS | Patient Health Record ---
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 Name Role Phone Navdeep Velasquez Primary Care Provider Monica Francois Unavailable [phone] Allergies No Known Allergies Results Component Value Reference Range Notes LIPID PROFILE Reviewed date:11/19/2024 01:49:48 PM Interpretation: Performing Lab: Notes/Report: [facility] , Triglycerides 72 <=150 mg/dL Vjbzxtyknkn993<=200 mg/dLHDL Hihkycrhxgh2160-43 mg/dL > or =60 mg/dl - LOW CARDIOVASCULAR RISK <40 mg/dl - HIGH CARDIOVASCULAR RISK LDL Cholesterol Ndfacnkeyx103.0 <100 mg/dl OPTIMAL 100-129 mg/dl NEAR OR ABOVE OPTIMAL 130-159 mg/dl BORDERLINE HIGH 160-189 mg/dl HIGH >190 mg/dl VERY HIGH VLDL AEMIBEPWYRZ87.4Chol HDL Ratio5.5 3.3 - 4.4 LOW RISK 4.4 - 7.1 AVERAGE RISK 7.1 - 11.0 MODERATE RISK >11.0 HIGH RISK Performing Lab:see noteML - [facility] LBPROF 14(COMP METB) Reviewed date:11/19/2024 01:49:48 PM Interpretation: Performing Lab: Notes/Report: [facility] ,Nziznv643718-020 mmol/LPotassium4.23.5-5.1 mmol/NNhmgaawo98789-792 mmol/LCarbon Lvfkbll41.121.0-32.0 mmol/LAnion Gap11.7Canevvp12458-169 mg/dLBlood Urea Joleijsb29.07.0-18.0 mg/dLCreatinine1.330.70-1.30 mg/dLEstimated GFR ( Katty>60>=60 mL/min/1.73m 2Estimated GFR (Non- Ame55>=60 mL/min/1.73m 2 BUN Creatinine Ratio12.9Jsmgrub1.78.5-10.1 mg/dLBilirubin Total0.50.2-1.0 mg/dL Aspartate Amino Kynihfaaqke1422-55 U/LAlanine Vtcoswwrwwnfmvkb5157-22 U/L Alkaline Aqwahixxmzm0843-031 U/LTotal Protein6.76.4-8.2 g/dLAlbumin Level3.73.4- 5.0 g/dLGlobulin3.0Albumin Globulin Ratio1.2Performing Lab:see note - [facility] LBProthrombin Time INR Reviewed date:01/16/2025 08:21:29 PM Interpretation: Performing Lab: Notes/Report: [facility] ,Prothrombin Time10.99.0-11.6 secINR1.03 DESIRED INR: 2.0-3.0 CONDITIONS NOT LISTED BELOW 2.5-3.5 FOR PROSTHETIC HEART VALVE REPLACEMENT 2.5-3.5 RECURRENT THROMBOSIS Performing Lab[facility] LBTroponin I High Sensitivity Reviewed date:01/16/2025 08:21:29 PM Interpretation: Performing Lab: Notes/Report: [facility] ,Troponin I High Yclcjrpnumt460.74.0-76.1 pg/mL RESULTS CALLED TO KATH MANE RN @BY Neli Pierre at 0444 CUT-OFF POINTS HAVE BEEN ESTABLISHED BASED ON THE FOURTH UNIVERSAL DEFINITION OF MYOCARDIAL INFARCTION. THE UPPER REFERENCE LIMIT (URL) OF TROPONIN, DEFINED THE 99TH PERCENTILE OF cTnI DISTRIBUTION IN A REFERENCE POPULATION, HAS BEEN CONFIRMED THE DECISION THRESHOLD FOR [place] DIAGNOSIS. 99TH PERCENTILE = 76.2 PG/ML NOTE: HIGH-SENSITIVITY TROPONIN ASSAY IS NOT INTENDED TO BE USED IN ISOLATION BUT SHOULD BE INTERPRETED IN CONJUNCTION WITH OTHER DIAGNOSTIC AND CLINICAL INFORMATION. Performing Lab:[facility] LBECG 12 lead Reviewed date:01/16/2025 08:31:06 PM Interpretation: Performing Lab: Notes/Report: Source Facility: [place] [id number] Electrocardiograph Report Signed Patient: FLYNN ARNETT MR#: [id number] : 1965 Acct:[id number] Age/Sex: 59 / M ADM Date: 01/15/25 Loc: MS 223-[address]: Lauren Velasquez M.D. 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 Measurements Intervals [place] Rate: 50 P: 76 NJ: 278 QRS: 65 QRSD: 90 T: 96 QT: 482 QTc: 454 Interpretive Statements 1100 Sinus rhythm 2231 First degree AV block 4068 Nonspecific Twave abnormality 8304 Long QTc interval 9150 abnormal ECG Compared to ECG 01/15/2025 22:25:50 First degree AV block now present Electronically Signed On 01-16-2025 20:25:01 EDT by AMANDEEP MORAN M.D. Dictated By: AMANDEEP MORAN Signed By: 01/16/252024 DD/ 0431 TD/TT: Auto Polisher:ECG 12 lead Reviewed date:01/16/2025 08:37:33 PM Interpretation: Performing Lab: Notes/Report: Source Facility: [place] [address] [facility] [place] [id number] Electrocardiograph Report Signed Patient: FLYNN ARNETT MR#: [id number] : 1965 Acct:[id number] Age/Sex: 59 / M ADM Date: 01/15/25 Loc: MS 223-[address]: Lauren Velasquez M.D. Ordering Physician: Lauren Velasquez M.D. Date of Service: 01/16/25 Procedure(s): ECG 12 lead Accession Number(s): [id number] cc: [facility] Test Date: 2025-01-16 Pat Name: FLYNN ARNETT Department: Room: [facility] Gender: Male Service Line Bus Cleaner: : 1965 Requested By: LAUREN VELASQUEZ Order Number: [id number] Reading MD: AMANDEEP MORAN M.D. Measurements Intervals [place] Rate: 44 P: -38944 NJ: -57093 QRS: 66 QRSD: 88 T: 79 QT: 482 QTc: 434 Interpretive Statements Atrial fibrillation with slow ventricular response 9150 abnormal ECG Compared to ECG 01/16/2025 09:23:21 Sinus rhythm no longer present Electronically Signed On 01-16-2025 20:32:25 EDT by AMANDEEP MORAN M.D. Dictated By: AMANDEEP MORAN Signed By: 01/16/252031 DD/ TD/TT: Auto Polisher:Troponin I High Sensitivity Reviewed date:01/16/2025 08:21:29 PM Interpretation: Performing Lab: Notes/Report: [facility] ,Troponin I High Cxkqfprvucw22.24.0-76.1 pg/mL RESULTS CALLED TO Jennie Alfaro RN CUT-OFF POINTS HAVE BEEN ESTABLISHED BASED ON THE FOURTH UNIVERSAL DEFINITION OF MYOCARDIAL INFARCTION. THE UPPER REFERENCE LIMIT (URL) OF TROPONIN, DEFINED THE 99TH PERCENTILE OF cTnI DISTRIBUTION IN A REFERENCE POPULATION, HAS BEEN CONFIRMED THE DECISION THRESHOLD FOR [place] DIAGNOSIS. 99TH PERCENTILE = 76.2 PG/ML NOTE: HIGH-SENSITIVITY TROPONIN ASSAY IS NOT INTENDED TO BE USED IN ISOLATION BUT SHOULD BE INTERPRETED IN CONJUNCTION WITH OTHER DIAGNOSTIC AND CLINICAL INFORMATION. Performing Lab:see noteML - [facility] LBCBC AUTO DIFF Reviewed date:02/16/2025 08:46:30 PM Interpretation: Performing Lab: Notes/Report: [facility] ,White Blood Count8.84.0-11.0 10 3/uLRed Blood Count5.864.70-6.10 10 6/uL Huueqfthul68.214.0-18.0 g/aKDizccuuvpf56.742.0-54.0 %Mean Corpuscular Djrdxh75.4 80.0-94.0 fLMean Corpuscular Nrohalxubl38.625.9-34.0 pgMean Corpuscular HGB Conc 34.029.9-35.2 g/dLRed Cell Distribution Width14.511.0-15.0 %Platelet Pwjfn121 150-450 10 3/uLMean Platelet Hckkwf04.89.5-13.5 fLNeutrophils Percent Auto54.6 43.0-75.0 %Lymphocytes Percent Auto33.020.5-60.0 %Monocytes Percent Auto8.81.7- 12.0 %Eosinophils Percent Auto2.80.9-7.0 %Basophils Percent Auto0.50.2-2.0 % Immature Granulocytes Pct Auto0.30.0-0.5 %Neutrophils Absolute Auto4.81.4-6.5 10 3/uLLymphocytes Absolute Auto2.91.2-3.8 10 3/uLMonocytes Absolute Auto0.80.3-0.8 10 3/uLEosinophils Absolute Auto0.30.0-0.7 10 3/uLBasophils Absolute Auto0.00.0- 0.1 10 3/uLImmature Granulocytes Abs Auto0.030.00-0.03 10 3/uLPerforming Lab:see noteML - [facility] LBCA echo doppler complete Reviewed date:05/23/2025 01:29:02 PM Interpretation: Performing Lab: Notes/Report: Source Facility: [facility] [place] [address] [place] [address] Cardiology Report Signed Patient: FLYNN ARNETT MR#: [id number] : 1965 Acct:[id number] Age/Sex: 59 / M ADM Date: 05/23/25 Loc: CARD Attending Dr: Adonis Jacob M.D. Ordering Physician: Adonis Jacob M.D. Date of Service: 05/23/25 Procedure(s): CA echo doppler complete Accession Number(s): [id number] cc: Adonis Jacob M.D.; Lauren Velasquez M.D. Patient Name: FLYNN ARNETT MR#: [id number] : 1965 Exam Date: 05/23/2025 Ordering Doctor: [...] Signed By: 05/23/25 1102 DD/ 1101 TD/TT: Auto Polisher:GLYCOHEMOGLOBIN A1C Reviewed date:07/19/2025 07:12:27 PM Interpretation: Performing Lab: Notes/Report: [facility] ,Glycohemoglobin A1C6.94.5-6.2 % ADA RECOMMENDED LIMIT 4.0 - 6.0 ADA THERAPEUTIC TARGET < 7.0 ACTION SUGGESTED > 7.0 Estimated Average Fzhttlt862Mlgqxankxt Lab:see noteML - [facility] LB INSULIN Reviewed date:07/20/2025 06:52:41 PM Interpretation: Performing Lab: Notes/Report: [facility] ,Pfndvtt24.82.6-24.9 uIU/mL Performed at: [address] [id number] Service Parts Driver: Matthew Huber PhD, Phone: [phone] Performing Lab:see note - [facility] LBPROF CHEM 8 (BAS METB) Reviewed date:07/19/2025 07:12:27 PM Interpretation: Performing Lab: Notes/Report: [facility] ,Pmizdx369353-390 mmol/LPotassium4.13.5-5.1 mmol/WSwufiogk44579-068 mmol/LCarbon Ynvprea55.921.0-32.0 mmol/LAnion Gap14.8Vlxyxly81973-306 mg/dLBlood Urea Qgbvaaid11.07.0-18.0 mg/dLCreatinine1.370.70-1.30 mg/dLEstimated GFR ( Katty>60>=60 mL/min/1.73m 2Estimated GFR (Non- Ame54>=60 mL/min/1.73m 2 BUN Creatinine Ratio12.2Uwplvrb2.68.5-10.1 mg/dLPerforming Lab:see note [facility] Reviewed date:05/07/2025 07:40:56 PM Interpretation: Performing Lab: Notes/Report: [facility] ,Lmbana042158-058 mmol/LPotassium4.53.5-5.1 mmol/XTxunghbq43436-527 mmol/LCarbon Kctctpy17.721.0-32.0 mmol/LAnion Gap15.1Ugwnotl96970-656 mg/dLBlood Urea Anlfussn31.07.0-18.0 mg/dLCreatinine1.220.70-1.30 mg/dLEstimated GFR ( Katty>60>=60 mL/min/1.73m 2Estimated GFR (Non- Liz>60>=60 mL/min/1.73m 2BUN Creatinine Ratio12.5Lcahhfy1.28.5-10.1 mg/dLPerforming Lab:see noteML - [facility] LBCBC AUTO DIFF Reviewed date:05/07/2025 07:40:56 PM Interpretation: Performing Lab: Notes/Report: [facility] ,White Blood Count7.04.0-11.0 10 3/uLRed Blood Count5.594.70-6.10 10 6/uL Ivxrsysvih91.614.0-18.0 g/yPRnhcctqukq51.842.0-54.0 %Mean Corpuscular Rffiwx13.7 80.0-94.0 fLMean Corpuscular Okbhjbyevm96.925.9-34.0 pgMean Corpuscular HGB Conc 33.329.9-35.2 g/dLRed Cell Distribution Width14.011.0-15.0 %Platelet Ubcsp468 150-450 10 3/uLMean Platelet Zjzfao79.29.5-13.5 fLNeutrophils Percent Auto47.3 43.0-75.0 %Lymphocytes Percent Auto39.620.5-60.0 %Monocytes Percent Auto7.81.7- 12.0 %Eosinophils Percent Auto4.20.9-7.0 %Basophils Percent Auto0.70.2-2.0 % Immature Granulocytes Pct Auto0.40.0-0.5 %Neutrophils Absolute Auto3.31.4-6.5 10 3/uLLymphocytes Absolute Auto2.81.2-3.8 10 3/uLMonocytes Absolute Auto0.50.3- 0.8 10 3/uLEosinophils Absolute Auto0.30.0-0.7 10 3/uLBasophils Absolute Auto0.1 0.0-0.1 10 3/uLImmature Granulocytes Abs Auto0.030.00-0.03 10 3/uLPerforming Lab:see noteML - [facility] LBECG 12 lead Reviewed date:02/16/2025 08:46:30 PM Interpretation: Performing Lab: Notes/Report: Source Facility: [facility]-[address] [place] [address] [place] [address] Electrocardiograph Report Signed Patient: FLYNN ARNETT MR#: [id number] : 1965 Acct:[id number] Age/Sex: 59 / M ADM Date: 02/16/25 Loc: ER Attending Dr: Ordering Physician: Jose Armando Rider M.D. 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 Measurements Intervals [place] Rate: 75 P: -79 NJ: 156 QRS: 21 QRSD: 82 T: 50 QT: 378 QTc: 407 Interpretive Statements Electronic atrial pacemaker abnormal ECG Compared to ECG 02/16/2025 16:02:03 Electronic atrial pacemaker has replaced atrial fibrillation ST (T wave) deviation no longer present Electronically Signed On 02-16-2025 19:56:41 EDT by AMANDEEP MORAN M.D. Dictated By: AMANDEEP MORAN Signed By: 02/16/251955 DD/ 42 TD/TT: Auto Polisher:ECG 12 lead Reviewed date:02/16/2025 08:46:30 PM Interpretation: Performing Lab: Notes/Report: Source Facility: [place] [address] [place] [address] Electrocardiograph Report Signed Patient: FLYNN ARNETT MR#: [id number] : 1965 Acct:[id number] Age/Sex: 59 / M ADM Date: 02/16/25 Loc: ER Attending Dr: Ordering Physician: Jose Armando Rider M.D. Date of Service: 02/16/25 Procedure(s): ECG 12 lead Accession Number(s): [id number] cc: [facility] Test Date: 2025-02-16 Pat Name: FLYNN ARNETT Department: Room: - Gender: Male Service Line Bus Cleaner: : 1965 Requested By: 1030 Order Number: [id number] Reading MD: AMANDEEP MORAN M.D. Measurements Intervals [place] Rate: 92 P: 245 NJ: 232 QRS: 26 QRSD: 76 T: 36 QT: 340 QTc: 390 Interpretive Statements ATRIAL FIBRILLATION WITH RAPID VENTRICULAR RESPONSE [address] depression 4664 Twave abnormality, possible inferior ischemia 9150 abnormal ECG Compared to ECG 02/16/2025 15:25:33 No significant changes Electronically Signed On 02-16-2025 19:54:24 EDT by AMANDEEP MORAN M.D. Dictated By: AMANDEEP MORAN Signed By: 02/16/251953 DD/ 01 TD/TT: Auto Polisher:ECG 12 lead Reviewed date:02/16/2025 08:46:30 PM Interpretation: Performing Lab: Notes/Report: Source Facility: [place] [address] Electrocardiograph Report Signed Patient: FLYNN ARNETT MR#: [id number] : 1965 Acct:[id number] Age/Sex: 59 / M ADM Date: 02/16/25 Loc: ER Attending Dr: Ordering Physician: Jose Armando Rider M.D. Date of Service: 02/16/25 Procedure(s): ECG 12 lead Accession Number(s): [id number] cc: [facility] Test Date: 2025-02-16 Pat Name: FLYNN ARNETT Department: Room: - Gender: Male Service Line Bus Cleaner: : 1965 Requested By: 1030 Order Number: [id number] Reading MD: AMANDEEP MORAN M.D. Measurements Intervals [place] Rate: 110 P: 242 NJ: 242 QRS: 34 QRSD: 78 T: 62 QT: 328 QTc: 393 Interpretive Statements ATRIAL FIBRILLATION WITH RAPID VENTRICULAR RESPONSE [address] depression 9150 abnormal ECG Compared to ECG 02/09/2025 15:19:03 Atrial flutter no longer present Electronically Signed On 02-16-2025 19:53:04 EDT by AMANDEEP MORAN M.D. Dictated By: AMANDEEP MORAN Signed By: 02/16/251952 DD/ TD/TT: Auto Polisher:Troponin I High Sensitivity Reviewed date:02/16/2025 08:46:30 PM Interpretation: Performing Lab: Notes/Report: [facility] ,Troponin I High Sensitivity9.44.0-76.1 pg/mL CUT-OFF POINTS HAVE BEEN ESTABLISHED BASED ON THE FOURTH UNIVERSAL DEFINITION OF MYOCARDIAL INFARCTION. THE UPPER REFERENCE LIMIT (URL) OF TROPONIN, DEFINED THE 99TH PERCENTILE OF cTnI DISTRIBUTION IN A REFERENCE POPULATION, HAS BEEN CONFIRMED THE DECISION THRESHOLD FOR [place] DIAGNOSIS. 99TH PERCENTILE = 76.2 PG/ML NOTE: HIGH-SENSITIVITY TROPONIN ASSAY IS NOT INTENDED TO BE USED IN ISOLATION BUT SHOULD BE INTERPRETED IN CONJUNCTION WITH OTHER DIAGNOSTIC AND CLINICAL INFORMATION. Performing Lab:see noteML - [facility] LBPROF CHEM 8 (BAS METB) Reviewed date:02/16/2025 08:46:30 PM Interpretation: Performing Lab: Notes/Report: [facility] ,Sowbdp962872-368 mmol/LPotassium4.53.5-5.1 mmol/SObuaauqp85517-996 mmol/LCarbon Dmdesdq37.021.0-32.0 mmol/LAnion Gap16.9Ucwmmuu12798-556 mg/dLBlood Urea Hujxqfpk47.07.0-18.0 mg/dLCreatinine1.430.70-1.30 mg/dLEstimated GFR ( Katty>60>=60 mL/min/1.73m 2Estimated GFR (Non- Ame51>=60 mL/min/1.73m 2 BUN Creatinine Ratio16.2Zfcktvf4.38.5-10.1 mg/dLPerforming Lab:see noteML - [facility] LBMAGNESIUM Reviewed date:02/16/2025 08:46:30 PM Interpretation: Performing Lab: Notes/Report: [facility] ,Magnesium2.01.8-2.4 mg/dLPerforming Lab:see noteML - [facility] LB ECG 12 lead Reviewed date:02/10/2025 07:17:26 AM Interpretation: Performing Lab: Notes/Report: Source Facility: [facility]-[address] [place] [address] [place] [address] Electrocardiograph Report Signed Patient: FLYNN ARNETT MR#: [id number] : 1965 Acct:[id number] Age/Sex: 59 / M ADM Date: 02/09/25 Loc: ER Attending Dr: Ordering Physician: Jose Armando Rider M.D. Date of Service: 02/09/25 Procedure(s): ECG 12 lead Accession Number(s): [id number] cc: [facility] Test Date: 2025-02-09 Pat Name: FLYNN ARNETT Department: Room: - Gender: Male Service Line Bus Cleaner: : 1965 Requested By: 1030 Order Number: [id number] Reading MD: AMANDEEP MORAN M.D. Measurements Intervals [place] Rate: 97 P: 255 NJ: 224 QRS: 79 QRSD: 82 T: 42 QT: 354 QTc: 409 Interpretive Statements Atrial flutter with 3:1 AV conduction [address] depression 4664 Twave abnormality, possible inferior ischemia 9150 abnormal ECG Compared to ECG 01/16/2025 12:24:24 Atrial flutter has replaced atrial fibrillation Electronically Signed On 02-09-2025 21:35:12 EDT by AMANDEEP MORAN M.D. Dictated By: AMANDEEP MORAN Signed By: 02/09/25 2135 DD/ 1519 TD/TT: Auto Polisher:Troponin I High Sensitivity Reviewed date:02/09/2025 05:06:01 PM Interpretation: Performing Lab: Notes/Report: [facility] ,Troponin I High Sensitivity6.34.0-76.1 pg/mL CUT-OFF POINTS HAVE BEEN ESTABLISHED BASED ON THE FOURTH UNIVERSAL DEFINITION OF MYOCARDIAL INFARCTION. THE UPPER REFERENCE LIMIT (URL) OF TROPONIN, DEFINED THE 99TH PERCENTILE OF cTnI DISTRIBUTION IN A REFERENCE POPULATION, HAS BEEN CONFIRMED THE DECISION THRESHOLD FOR [place] DIAGNOSIS. 99TH PERCENTILE = 76.2 PG/ML NOTE: HIGH-SENSITIVITY TROPONIN ASSAY IS NOT INTENDED TO BE USED IN ISOLATION BUT SHOULD BE INTERPRETED IN CONJUNCTION WITH OTHER DIAGNOSTIC AND CLINICAL INFORMATION. Performing Lab:see noteML - [facility] LBPROF CHEM 8 (BAS METB) Reviewed date:02/09/2025 05:06:01 PM Interpretation: Performing Lab: Notes/Report: [facility] ,Kzzdnh016539-171 mmol/LPotassium4.03.5-5.1 mmol/FTapsqmcr97142-629 mmol/LCarbon Qbfgnyd17.721.0-32.0 mmol/LAnion Gap13.9Hziejer06038-400 mg/dLBlood Urea Yeslgaik60.07.0-18.0 mg/dLCreatinine1.610.70-1.30 mg/dLEstimated GFR ( Tmgivnm49>=60 mL/min/1.73m 2Estimated GFR (Non- Ame44>=60 mL/min/1.73m 2 BUN Creatinine Ratio11.3Yofurkh4.48.5-10.1 mg/dLPerforming Lab:see noteML - [facility] LBCBC AUTO DIFF Reviewed date:02/09/2025 05:06:01 PM Interpretation: Performing Lab: Notes/Report: [facility] ,White Blood Count6.24.0-11.0 10 3/uLRed Blood Count5.944.70-6.10 10 6/uL Cyxnxmytti09.314.0-18.0 g/gCYskjouhlyn79.542.0-54.0 %Mean Corpuscular Vcrknm81.6 80.0-94.0 fLMean Corpuscular Xaynxghirf79.425.9-34.0 pgMean Corpuscular HGB Conc 33.629.9-35.2 g/dLRed Cell Distribution Width14.511.0-15.0 %Platelet Kqevn491 150-450 10 3/uLMean Platelet Qxoego11.79.5-13.5 fLNeutrophils Percent Auto48.5 43.0-75.0 %Lymphocytes Percent Auto36.820.5-60.0 %Monocytes Percent Auto9.01.7- 12.0 %Eosinophils Percent Auto4.80.9-7.0 %Basophils Percent Auto0.60.2-2.0 % Immature Granulocytes Pct Auto0.30.0-0.5 %Neutrophils Absolute Auto3.01.4-6.5 10 3/uLLymphocytes Absolute Auto2.31.2-3.8 10 3/uLMonocytes Absolute Auto0.60.3- 0.8 10 3/uLEosinophils Absolute Auto0.30.0-0.7 10 3/uLBasophils Absolute Auto0.0 0.0-0.1 10 3/uLImmature Granulocytes Abs Auto0.020.00-0.03 10 3/uLPerforming Lab:see noteML - [facility] LBTroponin I High Sensitivity Reviewed date:01/16/2025 08:21:29 PM Interpretation: Performing Lab: Notes/Report: [facility] ,Troponin I High Vgcrmprmkjb238.34.0-76.1 pg/mL RESULTS CALLED TO Jennie Alfaro RN CUT-OFF POINTS HAVE BEEN ESTABLISHED BASED ON THE FOURTH UNIVERSAL DEFINITION OF MYOCARDIAL INFARCTION. THE UPPER REFERENCE LIMIT (URL) OF TROPONIN, DEFINED THE 99TH PERCENTILE OF cTnI DISTRIBUTION IN A REFERENCE POPULATION, HAS BEEN CONFIRMED THE DECISION THRESHOLD FOR [place] DIAGNOSIS. 99TH PERCENTILE = 76.2 PG/ML NOTE: HIGH-SENSITIVITY TROPONIN ASSAY IS NOT INTENDED TO BE USED IN ISOLATION BUT SHOULD BE INTERPRETED IN CONJUNCTION WITH OTHER DIAGNOSTIC AND CLINICAL INFORMATION. Performing Lab:see noteML - [facility] LBECG 12 lead Reviewed date:01/16/2025 08:31:06 PM Interpretation: Performing Lab: Notes/Report: Source Facility: [place] [address] Electrocardiograph Report Signed Patient: FLYNN ARNETT MR#: [id number] : 1965 Acct:[id number] Age/Sex: 59 / M ADM Date: 01/15/25 Loc: MS 223-[address]: Lauren Velasquez M.D. Ordering Physician: Lauren Velasquez M.D. 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 Measurements Intervals [place] Rate: 41 P: 150 NJ: 216 QRS: 71 QRSD: 88 T: 84 QT: 530 QTc: 467 Interpretive Statements Sinus rhythm 2231 First degree AV block 4068 Nonspecific Twave abnormality 8304 Long QTc interval ARTIFACT IN LEAD(S) 9150 abnormal ECG Compared to ECG 01/16/2025 04:31:06 No significant changes Electronically Signed On 01-16-2025 20:26:15 EDT by AMANDEEP MORAN M.D. Dictated By: AMANDEEP MORAN Signed By: 01/16/252025 DD/ 2 TD/TT: Auto Polisher:TSH W/ REFLEX FT4 Reviewed date:01/16/2025 08:21:29 PM Interpretation: Performing Lab: Notes/Report: [facility] ,TSH W/ REFLEX FT42.8610.358-3.740 uIU/mLPerforming Lab:see noteML - [facility] LBPTT HEPARIN MONITOR Reviewed date:01/16/2025 08:21:29 PM Interpretation: Performing Lab: Notes/Report: [facility] ,PTT Heparin Omhgsqy49.543.5-61.5 secRESULTS CALLED TO Jennie AlfaroRNPerforming Lab:see noteML - [facility] LBPTT Reviewed date:01/16/2025 08:21:29 PM Interpretation: Performing Lab: Notes/Report: [facility] ,Partial Thromboplastin Time38.222.3-36.2 secPerforming Lab:see noteML - [facility] LBPROF 14(COMP METB) Reviewed date:01/16/2025 08:21:29 PM Interpretation: Performing Lab: Notes/Report: [facility] ,Wavnvs415877-977 mmol/LPotassium3.63.5-5.1 mmol/NDwpfyoce04076-846 mmol/LCarbon Ycvclnm50.221.0-32.0 mmol/LAnion Gap13.1Zubcbze05362-724 mg/dLBlood Urea Mlkpipai19.07.0-18.0 mg/dLCreatinine1.400.70-1.30 mg/dLEstimated GFR ( Katty>60>=60 mL/min/1.73m 2Estimated GFR (Non- Ame52>=60 mL/min/1.73m 2 BUN Creatinine Ratio13.1Bjxarqk8.18.5-10.1 mg/dLBilirubin Total0.50.2-1.0 mg/dL Aspartate Amino Nbrliydwzqi4183-13 U/LAlanine Qcuzigbxlrriubyi7660-48 U/L Alkaline Eblpkszubke6407-978 U/LTotal Protein5.56.4-8.2 g/dLAlbumin Level2.93.4- 5.0 g/dLGlobulin2.6Albumin Globulin Ratio1.1Performing Lab:see noteML - [facility] LBMAGNESIUM Reviewed date:01/16/2025 08:21:29 PM Interpretation: Performing Lab: Notes/Report: [facility] ,Magnesium1.81.8-2.4 mg/dLPerforming Lab:see noteML - [facility] LB CBC AUTO DIFF Reviewed date:01/16/2025 08:21:29 PM Interpretation: Performing Lab: Notes/Report: [facility] ,White Blood Count6.94.0-11.0 10 3/uLRed Blood Count4.804.70-6.10 10 6/uL Ozrhxzxctx08.414.0-18.0 g/iQSrolgpkzlw75.242.0-54.0 %Mean Corpuscular Pkgpxp13.8 80.0-94.0 fLMean Corpuscular Wktzuqukug83.925.9-34.0 pgMean Corpuscular HGB Conc 33.329.9-35.2 g/dLRed Cell Distribution Width14.611.0-15.0 %Platelet Ysadn664 150-450 10 3/uLMean Platelet Lwwkkk71.29.5-13.5 fLNeutrophils Percent Auto43.3 43.0-75.0 %Lymphocytes Percent Auto42.020.5-60.0 %Monocytes Percent Auto9.71.7- 12.0 %Eosinophils Percent Auto4.10.9-7.0 %Basophils Percent Auto0.60.2-2.0 % Immature Granulocytes Pct Auto0.30.0-0.5 %Neutrophils Absolute Auto3.01.4-6.5 10 3/uLLymphocytes Absolute Auto2.91.2-3.8 10 3/uLMonocytes Absolute Auto0.70.3- 0.8 10 3/uLEosinophils Absolute Auto0.30.0-0.7 10 3/uLBasophils Absolute Auto0.0 0.0-0.1 10 3/uLImmature Granulocytes Abs Auto0.020.00-0.03 10 3/uLPerforming Lab:see noteML - [facility] LBTroponin I High Sensitivity Reviewed date:01/16/2025 08:21:29 PM Interpretation: Performing Lab: Notes/Report: [facility] ,Troponin I High Cdcipwehfft272.64.0-76.1 pg/mL RESULTS CALLED TO JASPER NAVA RN @BY Neli Pierre at 2346 CUT-OFF POINTS HAVE BEEN ESTABLISHED BASED ON THE FOURTH UNIVERSAL DEFINITION OF MYOCARDIAL INFARCTION. THE UPPER REFERENCE LIMIT (URL) OF TROPONIN, DEFINED THE 99TH PERCENTILE OF cTnI DISTRIBUTION IN A REFERENCE POPULATION, HAS BEEN CONFIRMED THE DECISION THRESHOLD FOR [place] DIAGNOSIS. 99TH PERCENTILE = 76.2 PG/ML NOTE: HIGH-SENSITIVITY TROPONIN ASSAY IS NOT INTENDED TO BE USED IN ISOLATION BUT SHOULD BE INTERPRETED IN CONJUNCTION WITH OTHER DIAGNOSTIC AND CLINICAL INFORMATION. Performing Lab:see noteML - [facility] LBECG 12 lead Reviewed date:01/16/2025 08:25:14 PM Interpretation: Performing Lab: Notes/Report: Source Facility: [facility]-[address] [place] [address] [place] [address] Electrocardiograph Report Signed Patient: FLYNN ARNETT MR#: [id number] : 1965 Acct:[id number] Age/Sex: 59 / M ADM Date: 01/15/25 Loc: [place] 223-[address]: Lauren Velasquez M.D. 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 Measurements Intervals [place] Rate: 44 P: -60938 [place]: -78012 QRS: 62 QRSD: 90 T: 77 QT: 498 QTc: 450 Interpretive Statements Junctional bradycardia 1470 with occasional supraventricular premature complexes abnormal ECG Compared to ECG 01/15/2025 18:13:59 ST (T wave) deviation no longer present Electronically Signed On 01-16-2025 20:22:03 EDT by AMANDEEP MORAN M.D. Dictated By: AMANDEEP MORAN Signed By: 01/16/252021 DD/ 24 TD/TT: Auto Polisher:Troponin I High Sensitivity Reviewed date:01/16/2025 08:21:29 PM Interpretation: Performing Lab: Notes/Report: [facility] ,Troponin I High Bqszrcqxzzk811.24.0-76.1 pg/mL RESULTS CALLED TO ALEXANDRA RODRIGUEZ @BY Neli Pierre at 1914 CUT-OFF POINTS HAVE BEEN ESTABLISHED BASED ON THE FOURTH UNIVERSAL DEFINITION OF MYOCARDIAL INFARCTION. THE UPPER REFERENCE LIMIT (URL) OF TROPONIN, DEFINED THE 99TH PERCENTILE OF cTnI DISTRIBUTION IN A REFERENCE POPULATION, HAS BEEN CONFIRMED THE DECISION THRESHOLD FOR [place] DIAGNOSIS. 99TH PERCENTILE = 76.2 PG/ML NOTE: HIGH-SENSITIVITY TROPONIN ASSAY IS NOT INTENDED TO BE USED IN ISOLATION BUT SHOULD BE INTERPRETED IN CONJUNCTION WITH OTHER DIAGNOSTIC AND CLINICAL INFORMATION. Performing Lab:see noteML - [facility] LBECG 12 lead Reviewed date:01/16/2025 08:25:07 PM Interpretation: Performing Lab: Notes/Report: Source Facility: [facility]-[address] [place] [address] [place] [address] Electrocardiograph Report Signed Patient: FLYNN ARNETT MR#: [id number] : 1965 Acct:[id number] Age/Sex: 59 / M ADM Date: 01/15/25 Loc: MS 223-[address]: Lauren Velasquez M.D. 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 Measurements Intervals [place] Rate: 57 P: -76188 NJ: -50858 QRS: 73 QRSD: 88 T: 73 QT: [...] MORAN Signed By: 01/16/252019 DD/ 12 TD/TT: Auto Polisher:ECG 12 lead Reviewed date:01/16/2025 08:21:29 PM Interpretation: Performing Lab: Notes/Report: Source Facility: [place] [address] [place] [address] Electrocardiograph Report Signed Patient: FLYNN ARNETT MR#: [id number] : 1965 Acct:[id number] Age/Sex: 59 / M ADM Date: 01/15/25 Loc: ER Attending Dr: Ordering Physician: Abdi Guerrero Date of Service: 01/15/25 Procedure(s): ECG 12 lead Accession Number(s): [id number] cc: [facility] Test Date: 2025-01-15 Pat Name: FLYNN ARNETT Department: Room: - Gender: 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 Measurements Intervals [place] Rate: 83 P: 270 NJ: 184 QRS: -14 QRSD: 86 T: -27 [...] AMANDEEP MORAN Signed By: 01/16/25 0738 DD/ 1751 TD/TT: Auto Polisher:ECG 12 lead Reviewed date:01/16/2025 08:21:29 PM Interpretation: Performing Lab: Notes/Report: Source Facility: [place] [address] Electrocardiograph Report Signed Patient: FLYNN ARNETT MR#: [id number] : 1965 Acct:[id number] Age/Sex: 59 / M ADM Date: 01/15/25 Loc: ER Attending Dr: Ordering Physician: Abdi Guerrero Date of Service: 01/15/25 Procedure(s): ECG 12 lead Accession Number(s): [id number] cc: [facility] Test Date: 2025-01-15 Pat Name: FLYNN ARNETT Department: Room: - Gender: 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 Measurements Intervals [place] Rate: 142 P: -67097 NJ: -95182 QRS: 4 QRSD: 80 T: -30 QT: 292 QTc: 374 Interpretive Statements 37458 Atrial fibrillation with rapid ventricular response 2420 RSR (QR) in lead V1/V2, consistent with right ventricular conduction delay [address] depression, probably digitalis effect 9150 abnormal ECG Compared to ECG 11/30/2023 11:47:05 Atrial fibrillation has replaced sinus rhythm Electronically Signed On 01-16-2025 7:37:05 EDT by AMANDEEP MORAN M.D. Dictated By: AMANDEEP MORAN Signed By: 01/16/25 0737 DD/ 1730 TD/TT: Auto Polisher:UA Micro, reflex to culture Reviewed date:01/16/2025 08:21:30 PM Interpretation: Performing Lab: Notes/Report: [facility] ,Color UrineLT. YELLOWYELLOWClarity UrineCLEARCLEARSpecific [place] Urine1.010 1.005-1.025pH Urine7.55.0-9.0Protein UrineNEGATIVENEG/TRACE mg/dLGlucose Urine UA>=1000NEGATIVE mg/dLBilirubin UrineNEGATIVENEGATIVEKetones UrineNEGATIVE NEGATIVE mg/dLBlood UrineNEGATIVENEGATIVENitrite UrineNEGATIVENEGATIVE Urobilinogen Urine0.20.2-1.0 EU/dLLeukocyte Esterase UrineNEGATIVENEGATIVEWBC Urine0-2NONE SEEN #/HPFRBC Urine0-20-2 #/HPFBacteria UrineNONE SEENNONE SEEN #/HPFMucus UrineNONE SEENNONE SEENSquamous Epithelial Cell UrineNONE SEEN NONE/RARE #/LPFCrystals Seen?None SeenNone Seen #/HPFCast Seen?NONE SEENNONE SEEN #/LPFPerforming Lab:see noteML - [facility] LBTroponin I High Sensitivity Reviewed date:01/16/2025 08:21:29 PM Interpretation: Performing Lab: Notes/Report: [facility] ,Troponin I High Jdjkkfmpnqp679.94.0-76.1 pg/mL RESULTS CALLED TO DR. GUERRERO AT 1835 CUT-OFF POINTS HAVE BEEN ESTABLISHED BASED ON THE FOURTH UNIVERSAL DEFINITION OF MYOCARDIAL INFARCTION. THE UPPER REFERENCE LIMIT (URL) OF TROPONIN, DEFINED THE 99TH PERCENTILE OF cTnI DISTRIBUTION IN A REFERENCE POPULATION, HAS BEEN CONFIRMED THE DECISION THRESHOLD FOR [place] DIAGNOSIS. 99TH PERCENTILE = 76.2 PG/ML NOTE: HIGH-SENSITIVITY TROPONIN ASSAY IS NOT INTENDED TO BE USED IN ISOLATION BUT SHOULD BE INTERPRETED IN CONJUNCTION WITH OTHER DIAGNOSTIC AND CLINICAL INFORMATION. Performing Lab:see noteML - [facility] LBProthrombin Time INR Reviewed date:01/16/2025 08:21:29 PM Interpretation: Performing Lab: Notes/Report: [facility] ,Prothrombin Time10.79.0-11.6 secINR1.01 DESIRED INR: 2.0-3.0 CONDITIONS NOT LISTED BELOW 2.5-3.5 FOR PROSTHETIC HEART VALVE REPLACEMENT 2.5-3.5 RECURRENT THROMBOSIS Performing Lab:see noteML - [facility] LBTSH Reviewed date:01/16/2025 08:21:29 PM Interpretation: Performing Lab: Notes/Report: [facility] ,Thyroid Stimulating Hormone2.6260.358-3.740 uIU/mLPerforming Lab:see note - [facility] LBPTT Reviewed date:01/16/2025 08:21:29 PM Interpretation: Performing Lab: Notes/Report: [facility] ,Partial Thromboplastin Time25.622.3-36.2 secPerforming Lab:see note - [facility] LBPROF 14(COMP METB) Reviewed date:01/16/2025 08:21:29 PM Interpretation: Performing Lab: Notes/Report: [facility] ,Bdasbd433504-676 mmol/LPotassium4.03.5-5.1 mmol/DYuvnlhkb90606-180 mmol/LCarbon Belezkg78.721.0-32.0 mmol/LAnion Gap17.9Ywrlfxs20696-615 mg/dLBlood Urea Dgmngkps93.07.0-18.0 mg/dLCreatinine1.550.70-1.30 mg/dLEstimated GFR ( Ilejicf93>=60 mL/min/1.73m 2Estimated GFR (Non- Ame46>=60 mL/min/1.73m 2 BUN Creatinine Ratio13.9Fregnty2.88.5-10.1 mg/dLBilirubin Total0.60.2-1.0 mg/dL Aspartate Amino Rqojwkdpjke3379-10 U/LAlanine Unciptryxsczspds0535-57 U/L Alkaline Flxnagxghkl8326-224 U/LTotal Protein6.56.4-8.2 g/dLAlbumin Level3.73.4- 5.0 g/dLGlobulin2.8Albumin Globulin Ratio1.3Performing Lab:see noteML - [facility] LBDRUG SCREEN RAPID (URINE) Reviewed date:01/16/2025 08:21:29 PM Interpretation: Performing Lab: Notes/Report: [facility] ,Cannabinoid Screen UrineNEGATIVENEGATIVEPhencyclidine Screen UrineNEGATIVE NEGATIVECocaine Screen UrineNEGATIVENEGATIVEMethamphetamines Screen Urine NEGATIVENEGATIVEOpiate Screen UrineNEGATIVENEGATIVEAmphetamine Screen Urine NEGATIVENEGATIVEBenzodiazepines Screen UrineNEGATIVENEGATIVETricyclic Antidepressant UrineNEGATIVENEGATIVEMethadone Screen UrineNEGATIVENEGATIVE Barbiturates Screen UrineNEGATIVENEGATIVEOxycodone Screen UrineNEGATIVENEGATIVE Buprenorphine Screen UrineNEGATIVENEGATIVE DRUG CLASS TEST SYSTEM CUT-OFF CONCENTRATIONS ARE FOLLOWS: AMP (Amphetamine): 500 ng/mL BAR (Barbiturates): 200 ng/mL BZO (Benzodiazepines): 150 ng/mL BUP (Buprenorphine): 10 ng/mL SUNIL (Cocaine): 150 ng/mL mAMP (Methamphetamine): 500 ng/mL MTD (Methadone): 200 ng/mL OPI (Opiates): 100 ng/mL OXY (Oxycodone): 100 ng/mL PCP (Phencyclidine): 25 ng/mL THC (Cannabinoids): 50 ng/mL TCA (Trycyclic Antidepressants): 300 ng/mL Performing Lab:see noteML - [facility] LBD-DIMER Reviewed date:01/16/2025 08:21:29 PM Interpretation: Performing Lab: Notes/Report: [facility] ,D Dimer0.27<=0.59 mg/L FEU Increases in D-Dimer concentration observed [...] anticoagulant therapy, stress, and generalized hospitalization. Performing Lab:see noteML - [facility] LBCBC AUTO DIFF Reviewed date:01/15/2025 06:15:17 PM Interpretation: Performing Lab: Notes/Report: [facility] ,White Blood Count11.04.0-11.0 10 3/uLRed Blood Count5.644.70-6.10 10 6/uL Twgexvyjkl03.714.0-18.0 g/vEEfnaojgpme14.242.0-54.0 %Mean Corpuscular Mqilil46.9 80.0-94.0 fLMean Corpuscular Ibddjtohlo93.825.9-34.0 pgMean Corpuscular HGB Conc 34.029.9-35.2 g/dLRed Cell Distribution Width14.311.0-15.0 %Platelet Hbpxc426 150-450 10 3/uLMean Platelet Zrkens42.59.5-13.5 fLNeutrophils Percent Auto59.3 43.0-75.0 %Lymphocytes Percent Auto31.320.5-60.0 %Monocytes Percent Auto6.31.7- 12.0 %Eosinophils Percent Auto2.40.9-7.0 %Basophils Percent Auto0.40.2-2.0 % Immature Granulocytes Pct Auto0.30.0-0.5 %Neutrophils Absolute Auto6.61.4-6.5 10 3/uLLymphocytes Absolute Auto3.51.2-3.8 10 3/uLMonocytes Absolute Auto0.70.3- 0.8 10 3/uLEosinophils Absolute Auto0.30.0-0.7 10 3/uLBasophils Absolute Auto0.0 0.0-0.1 10 3/uLImmature Granulocytes Abs Auto0.030.00-0.03 10 3/uLPerforming Lab:see noteML - [facility] LBBNP Reviewed date:01/16/2025 08:21:29 PM Interpretation: Performing Lab: Notes/Report: [facility] ,NT Pro B Type Natriuretic Ctxm195.0<=900.0 pg/mLPerforming Lab:see noteML - [facility] LBCA echo doppler complete Reviewed date:11/22/2024 08:35:49 PM Interpretation: Performing Lab: Notes/Report: Source Facility: [facility]-[address] [place] [address] [place] [address] Cardiology Report Signed Patient: FLYNN ARNETT MR#: [id number] : 1965 Acct:[id number] Age/Sex: 59 / M ADM Date: 11/22/24 Loc: CARD Attending Dr: Adonis Jacob M.D. Ordering Physician: Adonis Jacob M.D. Date of Service: 11/22/24 Procedure(s): CA echo doppler complete Accession Number(s): [id number] cc: Adonis Jacob M.D.; Lauren Velasquez M.D. Patient Name: FLYNN ARNETT MR#: [id number] : 1965 Exam Date: 11/22/2024 Ordering Doctor: [...] Signed By: 11/22/24 1220 DD/ 1219 TD/TT: Auto Polisher:RUCHI polanco Reviewed date:07/23/2025 11:09:02 AM Interpretation: Performing Lab: Notes/Report: Source Facility: [place] [address] Cardiology Report Signed Patient: FLYNN ARNETT MR#: [id number] : 1965 Acct:[id number] Age/Sex: 59 / M ADM Date: 07/21/25 Loc: CARD Attending Dr: Adonis Jacob M.D. Ordering Physician: Adonis Jacob M.D. Date of Service: 07/21/25 Procedure(s): RUCHI echo limited Accession Number(s): [id number] cc: Adonis Jacob M.D.; Lauren Velasquez M.D. Patient Name: FLYNN ARNETT MR#: [id number] : 1965 Exam Date: 07/21/2025 Ordering Doctor: DR ADONIS JACOB M.D. ECHOCARDIOGRAM REPORT PROCEDURE: CA ECHO LIMITED INDICATIONS: Acute on chronic systolic heart failure, atrial fibrillation- ablation, pacemaker COMPARISON: None. DESCRIPTION: Limited ECHOCARDIOGRAM Real-time transthoracic echocardiography with 2D and M-mode performed. QUALITY: Technical quality was good. Limited echocardiogram per physician order. LEFT VENTRICLE: Normal chamber size. Mild concentric left ventricular hypertrophy. Normal systolic function. Estimated left ventricular ejection fraction is 65%. LV EF: Normal left ventricular ejection fraction, (>55%). DIASTOLIC: ATRIAL SEPTUM: LEFT ATRIUM: Moderate dilatation. RIGHT ATRIUM: Moderate dilatation. RIGHT VENTRICLE: Mild dilatation. Normal systolic function. Pacer wire present. TRICUSPID VALVE: Normal mobility and thickness. MITRAL VALVE: Evidence of prior mitral valve ring and repair. AORTIC VALVE: Normal trileaflet appearance. No visible sclerosis. Normal leaflet mobility. AORTIC ROOT: Normal diameter and appearance, measuring 3.8 cm. PULMONIC VALVE: Normal thickness and mobility. PERICARDIUM: No evidence of pericardial effusion. IVC: Collapses with inspiration. PLEURA: CONCLUSION: 1. Mild concentric left ventricular hypertrophy with normal systolic function. Estimated LVEF is 65%. 2. Mildly dilated right ventricle with normal systolic function. 3. Moderate biatrial dilatation. 4. Limited study performed with no Doppler interrogation as requested. Adult Echocardiography Procedure Report Left Ventricle LVEDD (3.7 - 5.6 cm): 4.63 cm LVESD (2.2 - 4.0 cm): 3.24 cm LVIVS thickness (0.6 - 1.2 cm): 1.19 cm LVPW thickness (0.5 - 1.0 cm): 1.19 cm LVOT Diameter 2.46 cm Left Ventricular Ejection Fraction: 65 % Left Atrium LA Volume Index (2D A2C): 44.03 ml/m2 Left Atrium Systolic Dimension: 4.04 cm Mitral Valve Right Ventricle Aorta AO Root Diam: 3.79 cm Aortic Valve Tricuspid Valve Pulmonic Valve Right Atrium Right Atrium Systolic Pressure: 75.37 ml, 75.37 ml Dictated by: Amandeep Moran M.D. on 07/21/2025 at 18:35 Approved by: Amandeep Moran M.D. on 07/21/2025 at 18:39 Dictated By: AMANDEEP MORAN Signed By: 07/21/251839 DD/ 38 TD/TT: Auto Polisher: Reason For Referral No Information Medications Medication SIG (Take, Route, Frequency, Duration) Notes Start Date End Date Status Ezetimibe 10 MG TAKE 1 TABLET BY MOUTH EVERY DAY FOR 90 DAYS; Duration: 90 days ActiveLisinopril 10 MG1 tablet Orally Once a day; Duration: 30 day(s)01/19/2025 ActiveHYDROcodone-Acetaminophen 5-325 MG1 tablet as needed Orally dx M54.2 every 6 hrs; Duration: 7 days5ActivePantoprazole Sodium 40 MGTAKE 1 TABLET BY MOUTH EVERY DAY; Duration: 30PRNActiveMounjaro 2.5 MG/0.5MLas directed Subcutaneous Once Weekly; Duration: 28 days5ActiveVitamin C 500 MG2 tablet Orally Once a dayActiveSimvastatin 20 MGTAKE 1 TABLET BY MOUTH EVERY DAY; Duration: 90ActivedilTIAZem HCl 120 MG1 tablet before meals Orally Three times a dayActiveEliquis 5 MG1 tablet Orally bid5ActiveCarvedilol 3.125 MG1 tablet with food Orally Twice a day; Duration: 30 day(s)5Active Social History Tobacco Use: Social History Observation Description Date Details (start date - stop date) Never Smoker NA - NA Tobacco Use/Smoking Question Answer Notes Patient is a nonsmoker AUDIT-C (Standard) Question Answer Notes Did you have a drink containing alcohol in the p ast year? No Rbhjsz7XqnnayyqqvbmxlEfbzzisc Problems Problem Type SNOMED Code ICD Code Onset Dates Problem Status W/U Status Risk Notes Problem Essential hypertension (68718674 ) Essential (primary) hypertension (I10) ActiveconfirmedProblemObesity (767655827)Obesity, unspecified (E66.9)Active confirmedProblemMixed hyperlipidemia (732315027)Mixed hyperlipidemia (E78.2) ActiveconfirmedProblemHyperlipidemia (33026015)Hyperlipidemia, unspecified (E78.5)ActiveconfirmedProblemMitral valve disorder (51276233)Nonrheumatic mitral (valve) insufficiency (I34.0)ActiveconfirmedProblemMitral valve disorder (25316896)Nonrheumatic mitral (valve) prolapse (I34.1)ActiveconfirmedProblemSick sinus syndrome (07363909)Sick sinus syndrome (I49.5)ActiveconfirmedProblemHeart failure (61862925)Heart failure, unspecified (I50.9)ActiveconfirmedProblem Cardiomegaly (8374643)Cardiomegaly (I51.7)ActiveconfirmedProblemDilatation of aorta (08859348)Aortic ectasia, unspecified site (I77.819)ActiveconfirmedProblem 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)ActiveconfirmedProblemDyspnea (768656553)Other forms of dyspnea (R06.09) ActiveconfirmedProblemChest pain (00714526)Other chest pain (R07.89)Active confirmedProblemCardiac pacemaker in situ (588097846)Presence of cardiac pacemaker (Z95.0)ActiveconfirmedProblemAtrial fibrillation (05985433)Atrial fibrillation (I48.91)ActiveconfirmedProblemGastroesophageal reflux disease (924625127)GERD (gastroesophageal reflux disease) (K21.9)ActiveconfirmedProblem Atrial fibrillation (08296877)Atrial fibrillation with RVR (I48.91)Active confirmedProblemAcute non-ST segment elevation myocardial infarction (949531562) NSTEMI (non-ST elevated myocardial infarction) (I21.4)ActiveconfirmedProblem Heart valve disease (376034)Valvular disease (I38)ActiveconfirmedProblem Cardiomegaly (4136464)Biatrial enlargement (I51.7)ActiveconfirmedProblemHigh blood pressure (85521300)High blood pressure (I10)ActiveconfirmedProblemGasping for breath (81885419)Gasping for breath (R06.89)ActiveconfirmedProblemOtitis externa of left ear (5481929904515894)Left otitis externa (H60.92)Active confirmedProblemDiabetes mellitus type 2 (57602340)Diabetes mellitus type 2, uncomplicated (E11.9)ActiveconfirmedProblemhypercholesterolemia (disorder) (83506352)Hypercholesteremia (E78.00)ActiveconfirmedProblemArthritis of right knee (6360068917800557)Arthritis of knee, right (M17.11)ActiveconfirmedProblem Aneurysm of ascending aorta (disorder) (863564399)Aneurysm of the ascending aorta, without rupture (I71.21)Activeconfirmed Vital Signs Blood pressure diastolic 78 mm Hg 08/08/2025 Fnfkzs83 in08/08/2025lood pressure mm Hg08/08/20257164Xcstnj193.0 lbs 08/08/2025BMI33.37 kg/m208/08/2025 Encounters Encounter Location Date Provider Diagnosis [facility] [address] [facility] [place] [address] 08/18/2024 Monica Alessandro Leg pain M79.606 [facility] [address] [facility] [place] [address] 02/16/2025 Navdeep Hoy Essential (primary) hypertension I10 ; Cardiomegaly I51.7 ; Nonrheumatic mitral (valve) insufficiency I34.0 ; Atrial fibrillation I48.91 and Arthritis of knee, right M17.11 [facility] [address] [facility] [place] [address] 08/08/2025 Navdeep Hoy Cardiomegaly I51.7 ; Essential (primary) hypertension I10 and Arthritis of knee, right M17.11 [facility] [address] [facility] [place] [address] 08/17/2024 Navdeep Hoy [facility] [facility] [place] [address] 4Doug HoyLeg pain M79.606[facility] [facility] [place] [address]/oug HoyLeg pain M79.606[facility] [facility] [place] [address]/4Doug HoyBVH [facility] [facility] [place] [address]/06/2025 Navdeep HoyLeg pain M79.606[facility] [facility] [place] [address]/01/2025Doug HoyLeg pain M79.606[facility] [address] [facility] [place] [address]/07/2025Doug HoyLeg pain M79.606[facility] [facility] [place] [address]/07/2025 Navdeep HoyLeg pain M79.606BM[facility] [facility] [place] [address]/[facility] [facility] [place] [address]/06/2025[facility] [facility] [place] [address]/06/2025Doug HoyLeg pain M79.606BM[facility] [facility] [place] [address]/06/2025Doug HoyEssential (primary) hypertension J81PqvhpsaUniversity [facility] [facility] [place] [address]/05/2025Doug Hoy Essential (primary) hypertension I10[facility] [place] [place] [address]/04/2025Doug HoyEssential (primary) hypertension W04WxqvpsnUniversity [facility] [facility] [place] [address] 05/23/2025[facility] [facility] [place] [address]/05/2025Doug HoyEssential (primary) hypertension I10[facility] [place] [place] [address]/04/2025Doug Hoy Prediabetes R73.09[facility] [place] [address]/05/2025Doug HoyEssential (primary) hypertension W31KkyxwehUniversity Of [facility] Hospital[address] [facility] [place] [address]/Doug Hoy Encounter for long-term current use of medication Z79.899[facility] [facility] [place] [address]/[facility] [facility] [address]/16/2025 Navdeep Hoy Assessments Encounter Date Diagnosis (ICD Code) Assessment Notes Treatment Notes Treatment Clinical Notes Section Notes 09/15/2024 Leg pain (ICD-10 - M79.606) 09/15/2024Leg pain (ICD-10 - M79.606)10/13/2024Leg pain (ICD-10 - M79.606) 11/08/2024Leg pain (ICD-10 - M79.606)12/12/2024Leg pain (ICD-10 - M79.606) 01/12/2025Leg pain (ICD-10 - M79.606)02/10/2025Leg pain (ICD-10 - M79.606) 03/13/2025Essential (primary) hypertension (ICD-10 - I10)04/11/2025Essential (primary) hypertension (ICD-10 - I10)05/11/2025Essential (primary) hypertension (ICD-10 - I10)06/12/2025Essential (primary) hypertension (ICD-10 - I10) 07/11/2025Prediabetes (ICD-10 - R73.09)07/12/2025Essential (primary) hypertension (ICD-10 - I10)07/19/2025Encounter for long-term current use of medication (ICD-10 - Z79.899)08/18/2024Le pain (ICD-10 - M79.606)CSA signed, OARRS tnqdzceb35/15/2025Essential (primary) hypertension (ICD-10 - I10)good djjwlxt0108/08/2025Essential (primary) hypertension (ICD-10 - I10)08/08/2025 Cardiomegaly (ICD-10 - I51.7)08/08/2025rthritis of knee, right (ICD-10 - M17.11)02/16/2025ardiomegaly (ICD-10 - I51.7)seeing cardioogy today02/16/2025 Nonrheumatic mitral (valve) insufficiency (ICD-10 - I34.0)02/16/2025trial fibrillation (ICD-10 - I48.91)m ore palpitations kylgcz8402/16/2025rthritis of knee, right (ICD-10 - M17.11)reviewe ed pain meds110/08/2024OtherContinue taking medications as prescribed and monitor BP at home regularly. Plan Of Treatment Pending Test Test Name [...] 01/14/2023 BMP - Basic Metabolic Panel 07/11/2025 CMP - Comprehensive Metabolic Panel 07/05 STOOL OCCULT BLOOD 01/07/2023 STOOL OCCULT BLOOD 01/15/2024 GLYCOHEMOGLOBIN A1C 07/11/2025 INSULIN 07/11/2025 THYROID PANEL (T4/TSH/FREE T3) 4 THYROID PANEL (T4/TSH/FREE T3) 3 PSA, SCREENING 02/16/2025 CMP (COMP MET MCC[place]ACK) w/eGFR CKD-EPI 2024 Insurance Providers Payer Name Payer Address Payer Phone Subscriber Number Group Number Insured Name Patient Relationship to Insured Coverage Start Date Coverage End Date NADIR HANSEN [address] [place] [address] [id number] Dash Arnett - patient is the insured Medical (General) History Medical History History ICD Code Breast mass N63.0 COVID-19 U07.1 Mitral valve disease I05.9 GERD (gastroesophageal reflux disease) K 21.9 Murmur R01.1 Shingles B02.9 Gasping for breath R06.89 Surgical History Surgery Date(Month/Year) Pacemaker 01/2025 Cardiac Catheterization-02/12/2023 & Mitral valve ipzoyx2405/27/2023ardiac Ablation- Dr Lundy05/31/2025Hospitalization History Reason Date(Month/Year) Acute Respiratory Insufficiency[facility] 05/27/2023
--- OUTSIDE RECORDS SUMMARY | 2025-08-08 08:43 | XMS_ITS | CCD ---
Author Organization [facility] Care Team Providers Care Nuclear Technologist Name Role Phone Lauren Rios Primary Care Physician [phone] [address] STUART Attending Unavailable MONICA BAIBN Admitting Unavailable MONICA BABIN Attending Unavailable MONICA [...] Monica Jackson Unavailable ADONIS WEBSTER Attending Unavailable ELTAHAWY, ADONIS Attending Unavailable ELTAHAWY, ADONIS Attending Unavailable DARRYN ALAMO Admitting Unavailable JASMEETDARRYN Paredes Attending Unavailable DARRYN ALAMO Admitting Unavailable DARRYN ALAMO Attending Unavailable LAUREN RIOS Referring Unavailable SAFI, CHAMP Admitting Unavailable SAFI, CHAMP Attending Unavailable DARRYN ALAMO Attending Unavailable DARRYN ALAMO Attending Unavailable ELTAHAWADONIS Schuler Referring Unavailable DARRYN ALAMO Referring Unavailable DARRYN ALAMO Referring Unavailable SAFI, CHAMP Referring Unavailable DARRYN ALAMO Referring Unavailable SAFI, CHAMP Referring Unavailable SAFI, CHAMP Referring Unavailable SAFI, CHAMP Referring Unavailable JASMEETDARRYN Paredes Referring Unavailable JASMEET, DARRYN Referring Unavailable DARRYN ALAMO Referring Unavailable DARRYN ALAMO Referring Unavailable Medications Current Medications MedicationDrug Class(es)DatesSig (Normalized)Sig (Original)acetaminophen 325 mg / HYDROcodone bitartrate 5 mg oral tablet (2 sources)Opioid AgonistStart: 84-38-8328josm 1 tablet by mouth four times daily as needed for painacetaminophen-hydrocodone 325 mg-5 mg oral tablet 1 tab(s), Oral, QID as needed for pain, Refill(s)0 Start Date: 12/19/22 Status: Orderedtake 1 tablet by mouth every six hoursHYDROcodone-Acetaminophen 5-325 MG 1 tablet as needed Orally every 6 hrs Activecarbamide peroxide 65 mg/ml otic solution (1 source)Debrox 6.5 % 5 drops into affected ear Otic Twice a day for 4 days ActiveCiprofloxacin / Hydrocortisone (1 source)Corticosteroid, Quinolone AntimicrobialCiprofloxacin-Hydrocortisone 0.2-1 % 3 drops into affected ear left ear Twice a day for 7 days Activecolistin 3 mg/ml / hydrocortisone 10 mg/ml / neomycin 3.3 mg/ml / thonzonium bromide 0.5 mg/ml oticsuspension (1 source)Aminoglycoside Antibacterial, CorticosteroidCortisporin-TC 3.3-3-10-0.5 MG/ML 5 drops into affected ear Otic Three times a day Active diclofenac sodium 75 mg delayed release oral tablet (2 sources)Nonsteroidal Anti-inflammatory DrugStart: 53-01-1311vvse 1 tablet by mouth twice dailydiclofenac sodium 75 mg Oral EC Tab 75 mg = 1 tab(s), Oral, BID, Refills(s) 0 Start Date: 12/19/22 Status: Orderedezetimibe 10 mg oral tablet (2 sources)Dietary Cholesterol Absorption InhibitorStart: 55-15-5831dzuz 1 tablet by mouth once dailyZetia 10 mg Tab 10 mg = 1 tab(s), Oral, Daily, Refills(s) 0 Start Date: 12/19/22 Status: Orderedibuprofen 800 mg oral tablet (1 source)Nonsteroidal Anti-inflammatory DrugStart: 82-01-2182mhba 1 tablet by mouth three times daily at mealtime as neededIbuprofen 800 MG 1 tablet with food or milk as needed Orally Three times a day for 10 days May, Active lactobacillus acidophilus 100 mg oral capsule (1 source)Acidophilus 100 MG as directed Orally ActivelevoFLOXacin 750 mg oral tablet (1 source)Quinolone Antimicrobialtake 1 tablet by mouth once dailyLevaquin 750 MG 1 tablet Orally Once a day Activenaloxone hydrochloride 40 mg/ml nasal spray (1 source)Opioid AntagonistStart: 68-72-8104Jxfeqq 4 mg/0.1 mL nasal spray 4 mg, Nasal, As Directed, as directed, # 1 kit(s), Refills(s) 0 Start Date: 12/19/22 Status: Orderedpantoprazole 40 mg extended release oral tablet (2 sources)Proton Pump InhibitorStart: 61-54-3509wibh 40 mg by mouth once daily Protonix 40 mg, Oral, Daily, Refills(s) 0 Start Date: 01/13/20 Status: Ordered take 1 tablet by mouth every twenty-four hoursPantoprazole Sodium 40 MG 1 tablet Orally Once a day Activesimvastatin 20 mg oral tablet (2 sources)HMG-CoA Reductase InhibitorStart: 31-10-3687sbvu 1 tablet by mouth once daily at bedtimeZocor 20 mg Tab 20 mg = 1 tab(s), Oral, Once a day (at bedtime), Refills(s) 0 Start Date: 01/13/20 Status: OrderedtiZANidine 4 mg oral capsule (1 source)Central alpha-2 Adrenergic AgonistStart: 34-65-8626ogif 2 capsules by mouth three times daily as needed for muscle spasmstizanidine 4 mg oral capsule 8 mg = 2 cap(s), Oral, TID, PRN Spasm, Refills(s) 0 Start Date: 01/13/20 Status: OrderedVitamin C 500 MG (1 source)take 1 tablet by mouth once dailyVitamin C 500 MG 1 tablet Orally Once a day Active Problems Active Problems Problem ClassificationProblemDateDocumented DateEpisodic/ChronicAbdominal hernia (7 sources)Obstructed umbilical hernia; Translations: [Umbilical hernia with obstruction, without gangrene]Onset: 77-52-0580IhhkznmmDtzygf; peripheral; and visceral artery aneurysms (2 sources)Aortic ectasia, unspecified site; Translations: [Aortic ectasia, unspecified site]Onset: 65-81-8425JniryogPviejhh dysrhythmias (6 sources)Paroxysmal atrial fibrillation; Translations: [Unspecified atrial fibrillation]Onset: 10-38-2475TwggyvyKnfrocqwnx disorders (4 sources)Encounter for adjustment and management of other part of cardiac pacemaker; Translations: [Presenceof automatic (implantable) cardiac defibrillator]Onset: 25-20-6722FcfdtylCowzbfrkmj heart failure; nonhypertensive (2 sources)Chronic diastolic (congestive) heart failure; Translations: [Chronic diastolic (congestive) heart failure]Onset: 73-55-1648MbfqchpXemujhhj atherosclerosis and other heart disease (2 sources)Unstable angina; Translations: [Unstable angina]Onset: 01-16-2025 ChronicDiabetes mellitus without complication (3 sources)Diabetes mellitus; Translations: [Type 2 diabetes mellitus without complications]Onset: 493203-13-1724OndkossXynklgto mellitus without complication (1 source)Njvrsrwcovq35-43-4949ZyrmvvaiGwctqikkf of lipid metabolism (1 source)Leatkjvxvmsuzs49-51-1272FbfbbuoWgbvmjvqxqrmus and diverticulitis (1 source)Diverticulosis of intestine, part unspecified, without perforation or abscess without bleeding; Translations: [DVRTCLOS PRT UNS NO PERF/ABSC NO BL] Onset: 41-69-8062MaxzvxzRjxflrhccy disorders (1 source)Gastroesophageal reflux epvfuyj77-80-3355WrwxgodOrglzjlfa hypertension (2 sources)Essential (primary) hypertension; Translations: [Essential (primary) hypertension]Onset: 55-78-3321HjvwvhfKnpfi valve disorders (2 sources)Rheumatic mitral valve disease, unspecified; Translations: [Rheumatic mitral valve disease, unspecified]Onset: 33-31-6400PfnwwxvDmeku ear and sense organ disorders (1 source)Otalgia, left earEpisodicOther ear and sense organ disorders (1 source)Unspecified acute noninfective otitis externa, left earEpisodicOther ear and sense organ disorders (1 source)Impacted cerumen, left earEpisodicOther ear and sense organ disorders (1 source)Impacted cerumen, right earEpisodicOther hereditary and degenerative nervous system conditions (1 source)Restless pndg42-31-0769KkkounvIilww nutritional; endocrine; and metabolic disorders (1 source)Body mass index 30+ - -09-7179KsbsrnnOpfse nutritional; endocrine; and metabolic disorders (1 source)Ydhlgmz57-42-6928NwrmakrIfeqc screening for suspected conditions (not mental disorders or infectious disease) (1 source)Encounter for screening for malignant neoplasm of prostate; Translations: [ENC SCREEN MALIG NEOPLASM PROSTATE]Onset: 90-81-2021Tcbluema Past or Other Problems Problem ClassificationProblemDateDocumented DateEpisodic/ChronicCardiac dysrhythmias (2 sources)Bradycardia, unspecified; Translations: [Bradycardia, unspecified] Onset: 86-11-0319TsfmzglvOsmnf of unknown origin (1 source)Fever, unspecified; Translations: [FEVER UNSPECIFIED]Onset: 03-12-2022 EpisodicHeart valve disorders (4 sources)Heart murmur; Translations: [Cardiac murmur, unspecified]Onset: 287136-73-9010XomdpiltMovad gastrointestinal disorders (4 sources)Diarrhea, unspecified; Translations: [DIARRHEA UNSPECIFIED]Onset: 16-54-8538UfhatqkfBntsu lower respiratory disease (2 sources)Other forms of dyspnea; Translations: [Other forms of dyspnea]Onset: 08-26-6017XjhqqbtrKbkrbqtf codes; unclassified (2 sources)Other specified postprocedural states; Translations: [Other specified postprocedural states]Onset: 76-08-3612Tgutqxec Results Test NameValueInterpretationReference SckmuGwdhnhio16qg 09-68-573647Hdnepaftr echo result from 07/21/2025: Adonis Webster MD to Or (Selected Message) 07/24/25 9:20 AM Please reassure him that his ejection fraction is normal Thank you Patient made aware.NormalUnMemorial Health System Marietta Memorial HospitalOrders Onlyon 85-96-3481Vnnpvn [id number] Flynn Arnett 1965 M Date Provider Department [place] 07/24/2025 [id number], HISTORICAL CARD Flavia Hos Family History Problem Relation Age of Onset No Known Problems Mother No Known Problems Father Family Status - Relation Status Age at Mother Father AliveNormalUniversTrumbull Regional Medical CenterOffice Visiton 07-11-2025 Follow-up [id number] Flynn Arnett 1965 M Date Provider Department Center 07/11/2025 DARRYN FATIMA MIKEY Alejandro Hos Family History Problem Relation Age of Onset No Known Problems Mother No Known Problems Father Family Status - Relation Status Age at Mother Father Alive Level of Service:01197 NE OFFICE/OUTPATIENT ESTABLISHED LOW MDM 20 MINNormal [facility]36on 61-29-192827weedhda called with BP and HR results.BP ranging from 104/89-128/87. HR ranging from 62-77 with one day of HR reaching 119.states he do not particularly feel better than last week with fatigue.states in the morning he's ok but throughout the day he does not feel well.will let know.NormalUnMemorial Health System Marietta Memorial HospitalTelephoneon [id number] DavidCarlos kimn 1965 Date Provider Department Center 06/13/20251986-MINDI VELASCO [facility] DC Heart[facility]AS Family History Problem Relation Age of Onset No Known Problems Mother No Known Problems Father Family Status - Relation Status Age at Mother Father Alive Reason for Visit and Comments: BP and HR results [Other]NormalUnMemorial Health System Marietta Memorial HospitalTelephoneon [id number] DavidFlynn kim 1965 Provider Department Center 06/09/20251986MINDI BURT [facility] V[facility] DC HeartVAS Family History Problem Relation Age of Onset No Known Problems Mother No Known Problems Father Family Status - Relation Status Age at Mother Father Alive Reason for Visit and Comments: week f/u post ablation [Other]NormalUnMemorial Health System [facility] Memorial Hospital BILIRUBIN, DIRECTon 68-36-9068Gvznjvzcf [Mass/Vol]0.1 mg/dLNormal0-0.2UnMemorial Health System Marietta Memorial HospitalComment on above:Performed By: #### [id number] ####[facility] (BEMONSTER)[address] [place], [place] [address]DBIACOWEH, TOTALon 80-68-8543Xzwwhlnim [Mass/Vol]0.6 mg/dLNormal0.3-1.0UnMemorial Health System Marietta Memorial HospitalComment on above:Performed By: #### LAB50 ####[facility] ([facility])[address] [place], [place] [address]HYMWBSRHHZhy 57-63-4293Gnesavmejm (Bld) [Mass/Vol]13.3 g/tRTvielf46.0-17.0UnMemorial Health System [facility] Hospital Comment on above:Performed By: #### [id number] #### [facility] ([facility]) [address] [place], [place] [address]QFBK SENSITIVITY TROPONIN Ion 59-83-6269TH TROPONIN I (NG/L)264 ng/LCritically high<20UnMemorial Health System Marietta Memorial HospitalComment on above: Performed By: #### [id number] #### [facility] ([facility]) [address] [place], [place] [address]WWty 96-79-9194IWYI Electrophysiology Consult Note DC Cardiology - [facility] Reason for visit: Device detected A-fib HPI: Flynn Arnett is a 59 y.o. year old with past medical history of HFpEF, hypertension, severe MR s/p mitral valve repair/annuloplasty with left atrial appendage clip, PFO closure hyperlipidemia AAA, DM 2 was transferred from [facility] to [facility] with underlying A-fib with RVR. He was placed on Cardizem which resulted in his heart rate dropping to 20 to 30 minutes and subsequent was transferred over to [facility] he underwent a cardiac cath which revealed normal coronaries. Given the persistence of bradycardia he was subsequently given a dual-chamber pacemaker by [place] [employer] dual-chamber pacemaker was placed on 01/17/2025 [...] Year: No Utilities: Not At Risk (01/16/2025) [facility] Utilities Threatened with loss of utilities: [...] daily as directed. 90 capsule 3 HYDROcodone-acetaminophen ([place]) 5-325 mg tablet Take 1 tablet by [...] normal jugular venous p (more content not included)...Normal [facility] HospitalLACTATE DEHYDROGENASEon 68-12-2043LYPRNTI DEHYDROGENASE (U/L) IN SER/PLAS BY LAC->PYR RML706 U/IZoyeys840-587SulpdyewswMemorial Health System Marietta Memorial HospitalComment on above:Performed By: #### [id number] #### [facility] (BEAKER) [address] [place], [place] [address]JVYYLHGLdx 25-89-5320NSHISVXKPg Pitroda at bedside. Stated pt could be discharged to home.NormalOhioHealth Berger HospitalNURSNOTE Discharge instructions discussed with pt and pt's . Stated understanding. NormalOhioHealth Berger HospitalNURSNOTEPatient to preop bay _6_. Patient instructed to remove all clothing and how to use CHG wipes. Patient states understanding. No questions or concerns about pre op.NormalUnMemorial Health System Marietta Memorial HospitalPOCT GLUCOSE METER UNSOLICITED RESULTSon 43-29-6285Cstxsth [Mass/Vol]110 mg/vAZkbw09-527RspzofxwthMemorial Health System Marietta Memorial HospitalComment on above:Order Comment: Waived Testing in the ED is performed under the ED CLIA certificate #[id number].Result Comment: ngrotha Performed By: #### [id number] ####[facility] (BEAKER)[address] [place], [place] [address]XEPZRDG-AVYlv 02-66-3722HRJ IN PPP BY COAGULATION ASSAY1.03 Normal0.90-1.10UnMemorial Health System Marietta Memorial HospitalComment on above:Result Comment: ACCCP RECOMMENDED INR FOR WARFARIN THERAPY CONDITION INR PROPHYLAXIS OF VENOUS THROMBOSIS 2-3 (HIGH-RISK SURGERY) TREATMENT OF VENOUS THROMBOSIS 2-3 TREATMENT OF PULMONARY EMBOLISM 2-3 PREVENTION OF SYSTEMIC EMBOLISM: 2-3 ACUTE MYOCARDIAL INFARCTION TISSUE HEART VALVES VALVULAR HEART DISEASE ATRIAL FIBRILLATION RECURRENT SYSTEMIC EMBOLISM MECHANICAL HEART VALVE 2.5-3.5 FROM: ORAL ANTICOAGULANTS. MECHANISM OF ACTION, CLINICAL EFFECTIVENESS, AND OPTIMAL THERAPEUTIC RANGE. CHEST 1995;108:231S-246S.Performed By: #### [id number] #### [facility] (BEAKER) [address] [place] [place], [place] [address]ALHEDIYEQGO TIME (PT) IN PPP BY COAGULATION ASSAY13.5 Seconds Scntqf09.3-14.8[facility] HospitalComment on above:Performed By: #### [id number] #### [facility] (BEAKER) [address] [place], [place] [address]Fwyl for Procedureon 35-17-8327Cpod for [id number] Flynn Arnett 1965 M Date Provider Department Center 05/31/2025 April-MINDI VELASCO [facility] DC [facility] Family History Problem Relation Age of Onset No Known Problems Mother No Known Problems Father Family Status - Relation Status Age at Mother Father AliveNoTriHealth36on 21-01-065072Sstcn entered and faxed to [facility] to be done 1 month s/p afib ablation on 05/31/2025.NormalOhioHealth Berger Hospital36Spoke with patient and got him scheduled for follow up afib ablation and repeat echo in 1 month. Would you like limited echo? Or another complete?Normal [facility]36Regarding echo result from 05/23/2025: Adonis Webster MD to Or 05/23/25 12:20 PM His EF has dropped from normal to 40% or so (nml 55-60%). This may be related to the AF and I see he sees Dr Alamo and has an ablation scheduled. Please let him know we will repeat an echo a month or so after the ablation and if the EF has not improved, we may need additional testing Thanks.NormalOhioHealth Berger HospitalOrders Onlyon 54-13-5219Sefnxf [id number] Flynn Arnett 1965 M Date Provider Department Center 05/23/2025 [id number], HISTORICAL CARD Flavia Hos Family History Problem Relation Age of Onset No Known Problems Mother No Known Problems Father Family Status - Relation Status Age at Mother Father AliveNoTriHealthOrders Onlyon 05-19-2025 Orders [id number] Flynn Arnett 1965 M Date Provider Department Center 05/19/2025 DARRYN FATIMA [facility] CARD DC Heart[facility]AS Family History Problem Relation Age of Onset No Known Problems Mother No Known Problems Father Family Status - Relation Status Age at Mother Father AliveFulton Medical Center- FultonalUniBarney Children's Medical CenterPOCT GLUCOSE METER UNSOLICITED RESULTSon 96-36-6779Jcyvigh [Mass/Vol]124 mg/wGVjqf82-549TffepltpegMemorial Health System Marietta Memorial HospitalComment on above:Order Comment: Waived Testing in the ED is performed under the ED CLIA certificate #[id number].Result Comment: ltolles Performed By: #### [id number] #### [facility] (THIEN) [address] [place] [place], [place] [address]Isoe for Procedureon 34-17-6508Fxgk for [id number] Flynn Arnett 1965 M Date Provider Department Center 03/30/20251986-MINDI VELASCO [facility] VAS LAB DC HeartVAS Family History Problem Relation Age of Onset No Known Problems Mother No Known Problems Father Family Status - Relation Status Age at Mother Father AliveParkview Health Bryan HospitalPrep for Procedureon 94-36-4889Nujd for [id number] Flynn Arnett M 1965 M Date Provider Department Center 03/24/2025 1987-MINDI VELASCO [facility] DC HeartVAS Family History Problem Relation Age of Onset No Known Problems Mother No Known Problems Father Family Status - Relation Status Age at Mother Father AliveNormalUniBarney Children's Medical CenterFollow-Upon 03-07-2025 Follow-[id number] Flynn Arnett 1965 M Date Provider Department Center 03/07/2025 DARRYN FATIMA [facility] Hos Family History Problem Relation Age of Onset No Known Problems Mother No Known Problems Father Family Status - Relation Status Age at Mother Father Alive Level of Service:85602 NE OFFICE/OUTPATIENT NEW MODERATE MDM 45 MINUTESNormal [facility]36on 26-00-259360Dfhbklz called back very upset that his call from Tuesday 02/20 was not returned. I advised him of medication changes and they were sent into his pharmacy. He has follow up apt with Dr. Alamo on 03/07/2025. Patient verbalized understanding. [address] 95-83-229775Tw can start him on diltiazem 120mg daily to try to help control his HR. While this can also affect BP, would like to change carvedilol to Toprol 25mg daily to try to help prevent low BP. He should monitor his BP and HR 2 hours after medications and bring in readings to his next visit.[facility] 41-72-0859Pannvy [id number] Flynn Arnett 1965 M Date Provider Department Center 02/17/2025 DARRYN FATIMA [facility] CARD [facility] Family History Problem Relation Age of Onset No Known Problems Mother No Known Problems Father Family Status - Relation Status Age at Mother FatherNormalUnivers[address] 06-80-722208Igphzxk informed. I also told him he could take an extra dose of carvedilol (3.125mg) if he felt his heart race again. Says about 1 hour after he spoke with me yesterday he started to feel fine again. Has felt fine today also. Advised patient to go to the ED if symptoms worsen. He verbalized understanding.[address] 47-64-707090Ybohmnm called to make you aware that yesterday and today he [...] to keep his scheduled apt with Dr. Alamo next month. I also told him if his HR stays above 120 for more than an hour he should report to the ED. Any suggestions? Thanks. [facility] HospitalOffice Visiton 88-77-7847Jumawx-up [id number] Flynn Arnett 1965 M Date Provider Department Center 01/31/2025 271-ADONIS WEBSTER CARD Flavia Hos Family History Problem Relation Age of Onset No Known Problems Mother No Known Problems Father Family Status - Relation Status Age at Mother Father Level of Service:87145 NE OFFICE/OUTPATIENT ESTABLISHED MOD MDM [address] [facility] SERVICESNoSelect Medical [facility]30on 49-75-247111Lsxrt Case Management Update Multidisciplinary rounds have been completed. Barriers [...] Click Score: PT Recommendations: OT Recommendations: New Consults:NormalUnMemorial Health System Marietta Memorial HospitalBASIC METABOLIC PANELon 17-23-0282Vmqya gap [Moles/Vol]10 mmol/LNormal7-20UnMemorial Health System Marietta Memorial HospitalComment on above:Performed By: #### [id number] ####[facility] (BEAKER)[address] [place], [place] [address]Kbeenqj [Mass/Vol]8.2 mg/dLLow8.6-10.3 [facility] HospitalComment on above:Performed By: #### [id number] ####[facility] (BEAKER)[address] [place], [place] [address]Fkmhzpct [Moles/Vol]106 mmol/QKzxukf37-888ApwchfjuvwMemorial Health System Marietta Memorial HospitalComment on above:Performed By: #### [id number] ####[facility] (BEAKER)[address] [place], [place] [address]ZI0 [Moles/Vol]24 mmol/TCaqvys70-87NipsgpcscgMemorial Health System Marietta Memorial HospitalComment on above:Performed By: #### [id number] ####[facility] (BEAKER)[address] [place] [address]Cnxlbngdxi [Mass/Vol]1.24 mg/dLNormal 0.60-1.30UnMemorial Health System Marietta Memorial HospitalComment on above:Performed By: #### [id number] ####[facility] ([facility])[address] [place] [address]GVFVIQCQFT FILTRATION RATE ML/MIN/1.73 SQ M.ONSPUHELS90.8 mL/min/1.73m*2Low>60.0UnMemorial Health System Marietta Memorial HospitalComment on above:Result Comment: [facility]???s estimated glomerular filtration rate (eGFR) will [...] potential consequences that do not disproportionately affect anyone group of individuals. Performed By: #### [id number] ####[facility] ([facility])[address] [place] [address]Bffpldw [Mass/Vol]128 mg/cCZnvr24-881XhrqudonnnMemorial Health System Marietta Memorial HospitalComment on above:Performed By: #### LAB15 ####[facility] ([facility])[address] [place] [address]Ksqwnccck [Moles/Vol]4.0 mmol/LNormal 3.5-5.1UnMemorial Health System Marietta Memorial HospitalComment on above:Performed By: #### [id number] ####[facility] ([facility])[address] [place] [address]Hwcixv [Moles/Vol]136 mmol/PPrafzb129-997XzkotawjqcMemorial Health System Marietta Memorial HospitalComment on above:Performed By: #### [id number] ####[facility] ([facility])[address] [place] [address]Yopb nitrogen [Mass/Vol]16 mg/dLNormal7-25UnMemorial Health System Marietta Memorial HospitalComment on above:Performed By: #### LAB15 ####[facility] ([facility])[address] [place] [address]LORT NITROGEN/CREATININE (MASS RATIO) IN SER/PLAS12.9NormalUniversTrumbull Regional Medical CenterComment on above: Performed By: #### [id number] ####[facility] ([facility])[address] [place] [address]LSL WITH AUTO DIFFERENTIALon 42-57-4965Aqtxawfva (Bld) [#/Vol]0.03 10*3/uLNormal0.00-0.20UnMemorial Health System Marietta Memorial HospitalComment on above: Performed By: #### [id number] #### [facility] ([facility]) [address] [place] [address]Ljfszougi/100 WBC (Bld)0.4 %Normal0.0-1.0UnMemorial [facility] Mari[facility] Memorial HospitalComment on above:Performed By: #### [id number] #### [facility] ([facility]) [address] [place] [address]Udlmylewncf (Bld) [#/Vol]0.20 10*3/uLNormal0.00-0.50UnMemorial Health System Mari[facility] Memorial HospitalComment on above:Performed By: #### [id number] #### [facility] ([facility]) [address] [place] [address]Hpnjpjljxww/100 WBC (Bld)2.6 %Normal0.0-6.0UnMemorial Health System Marietta Memorial HospitalComment on above:Performed By: #### [id number] #### [facility] ([facility]) [address] [place], [place] [address]Voghwbpvvhl distribution width (RBC) [Ratio]14.6 %Normal 11.5-15.0UnMemorial Health System Marietta Memorial HospitalComment on above:Performed By: #### [id number] #### [facility] ([facility]) [address] [place] [address]USUIHKSZRRL MEAN CORPUSCULAR HEMOGLOBIN CONCENTRATION (G/DL) BY JNEHKRRSP63.3 g/oQAlvnwa02.0-35.0UnMemorial Health System Marietta Memorial HospitalComment on above:Performed By: #### [id number] #### [facility] ([facility]) [address] [place] [address]Lzsrzwetxc (Bld) [Volume fraction]45.0 %Oqkrdn88.0-50.0 [facility] HospitalComment on above:Performed By: #### [id number] #### [facility] ([facility]) [address] [place] [address]Xedmmhburm (Bld) [Mass/Vol]15.0 g/mMPsouou07.0-17.0UnMemorial Health System Mari[facility] Memorial HospitalComment on above:Performed By: #### [id number] #### [facility] ([facility]) [address] [place], [place] [address]Zzjxsnjo granulocytes (Bld) [#/Vol]0.01 10*3/uLNormal0.00-0.20 [facility] HospitalComment on above:Performed By: #### [id number] #### [facility] ([facility]) [address] [place] [address]Aurkpayc granulocytes/100 WBC (Bld)0.1 %Normal0.0-1.0UnMemorial Health System Mari[facility] Memorial HospitalComment on above:Performed By: #### [id number] #### [facility] ([facility]) [address] [place] [address]Wiixkmkiipv (Bld) [#/Vol]1.73 10*3/uLNormal1.20-4.00UnMemorial [facility] Memorial HospitalComment on above:Performed By: #### [id number] #### [facility] ([facility]) [address] [place] [address]Lozlzzahfos/100 WBC (Bld)22.7 %Frhszh06.0-45.0UnMemorial Health [facility] Memorial HospitalComment on above:Performed By: #### [id number] #### [facility] ([facility]) [address] [place], [place] [address]YMA (RBC) [Entitic mass]27.1 etUhgbsj61.0-33.0UnMemorial Health [facility] Memorial HospitalComment on above:Performed By: #### [id number] #### [facility] ([facility]) [address] [place] [address]URP (RBC) [Entitic vol]81.2 fLLow82.0-98.0UnMemorial Health [facility] Memorial HospitalComment on above:Performed By: #### [id number] #### [facility] ([facility]) [address] [place], [place] [address]Mxiofztht (Bld) [#/Vol]0.71 10*3/uLNormal0.10-1.00UnMemorial [facility] Memorial HospitalComment on above:Performed By: #### [id number] #### [facility] ([facility]) [address] [place] [place], [place] [address]Rpallkxzl/100 WBC (Bld)9.3 %Normal5.0-12.0UnMemorial Health [facility] Memorial HospitalComment on above:Performed By: #### [id number] #### [facility] ([facility]) [address] [place] [place], [place] [address]Ydzyaugmdwj (Bld) [#/Vol]4.95 10*3/uLNormal1.60-7.60UnMemorial Health System [facility] Memorial HospitalComment on above:Performed By: #### [id number] #### [facility] ([facility]) [address] [place], [place] [address]Rivqkpwwyuk/100 WBC (Bld)64.9 %Vpqiko19.0-72.0UnMemorial Health System [facility] Memorial HospitalComment on above:Performed By: #### [id number] #### [facility] ([facility]) [address] [place], [place] [address]EWJT (PER 100 WBCS) BY AUTOMATED COUNT0.0 %Pnosxa8DwubrnuxllMemorial Health System Marietta Memorial HospitalComment on above:Performed By: #### [id number] #### [facility] ([facility]) [address] [place], [place] [address]CDKAUMLPV (10*3/UL) IN BLOOD AUTOMATED AXDPL471 10*3/uLNormal 150-400UnMemorial Health System [facility] Memorial HospitalComment on above:Performed By: #### [id number] #### [facility] ([facility]) [address] [place] [address]IKH (Bld) [#/Vol]5.54 10*6/uLNormal3.80-5.70UnMemorial Health System [facility] Memorial HospitalComment on above:Performed By: #### [id number] #### [facility] ([facility]) [address] [place] [place] [address]YTF (Bld) [#/Vol]7.63 10*3/uLNormal4.00-10.60UnMemorial Health System [facility] Memorial HospitalComment on above:Performed By: #### [id number] #### [facility] ([facility]) [address] [place] [address]DDwa [id number] Attestation signed by Champ Caceres MD at 01/20/2025 12:31 PM Patient was seen and examined with the resident on the same date of service, I discussed the findings and therapeutic plan with the resident/fellow, I agree with the documentation, assessment and plan as above except for any edits/updates below. Champ Caceres MD medicine worker Pulmonary and critical care department [id number] Admission Admitted 01/16/2025 for Bradycardia Discharge Diagnosis Primary Symptomatic severe sinus bradycardia Shock, cardiogenic from bradycardia arrhythmias Unstable angina Tachybrady syndrome Secondary Heart failure with preserved ejection fraction Mitral valve prolapse with regurgitation s/p mitral valve repair Essential hypertension Ups-qqyttoy-ncgohstqk type 2 diabetes mellitus Discharge Disposition Home [...] HYDROcodone-acetaminophen 5-325 mg tablet Commonly known as: [place] lisinopril 10 mg tablet Take 1 tablet (10 mg) by mouth in the morning. pantoprazole 40 mg EC tablet Commonly known as: ProtoNix simvastatin 20 mg tablet Commonly known as: Zocor Where to Get Your Medications These medications were sent to [facility] - [address] [place] [address] [facility] [place] [address], [facility] [address] apixaban 5 mg tablet Activity Normal activity as tolerated Diet Patient currently has no discharge diet orders Allergies Patient has no known allergies. Hospital Course Flynn Arnett is a 59 y.o. adult with a past medical history of heart failure with preserved ejection fraction, hypertension, mitral valve prolapse with regurgitation s/p mitral valve repair, hyperlipidemia, xgp-oifnbrt-jkmykqkej type 2 diabetes, AAA who presents as a transfer from [facility]. Patient developed left lower chest pain yesterday, [...] had racing heartbeat. He went to the [facility] with these complaints, where reportedly his heart [...] to 30 bpm. He was transferred to [facility] for higher level of care. At [facility], his heart rate was at his baseline [...] day of discharge, libia (more content not included)...NormalUnMemorial Health System Marietta Memorial HospitalLetter (Out)on 40-94-1229Qvzbft (Out)[id number] Flynn Arnett 1965 M Date Provider Department Center 01/18/2025 [id number], GENERIC PRO*INIT None Family History Problem Relation Age of Onset No Known Problems Mother No Known Problems Father Family Status - Relation Status Age at Mother FatherNormalUniversity [facility] SpringfieldMAGNESIUMon [phone] [Mass/Vol]2.0 mg/dLNormal1.9-2.7UnMemorial Health System Mari[facility] Memorial HospitalComment on above:Performed By: #### [id number] ####[facility] ([facility])[address] [place], [place] [address]AVVXYKHLBRei 50-29-4677Bcjpsoxhb [Mass/Vol]3.8 mg/dLNormal 2.5-5.0UnMemorial Health [facility] Memorial HospitalComment on above:Performed By: #### [id number] ####[facility] ([facility])[address] [place], [place] [address]LEDH GLUCOSE METER UNSOLICITED RESULTSon 69-47-4162Fzadndw [Mass/Vol]168 mg/dLHigh 70-105UnMemorial Health System Mari[facility] Memorial HospitalComment on above:Order Comment: Waived Testing in the ED is performed under the ED CLIA certificate #[id number].Result Comment: [id number] By: #### [id number] ####[facility] ([facility])[address] [place], [place] [address]38bz [phone] Case Management Update Multidisciplinary rounds have been completed. Barriers to Discharge: 01/17- patient with cardiac history, TVAR 2 yeara ago, was at [facility] with CP, was in afib RVR, had [...] Click Score: PT Recommendations: OT Recommendations: New Consults:NormalUnMemorial Health System Marietta Memorial HospitalBASIC METABOLIC PANELon 02-78-7816Lidde gap [Moles/Vol]9 mmol/LNormal7-20UnMem[facility] Memorial HospitalComment on above:Performed By: #### [id number] ####[facility] ([facility])[address] [place] [address]Swgihdr [Mass/Vol]8.2 mg/dLLow8.6-10.3 [facility] HospitalComment on above:Performed By: #### [id number] ####[facility] ([facility])[address] [place] [address]Prifisrm [Moles/Vol]109 mmol/DBdiz73-700UpulkrjmonMemorial Health System Marietta Memorial HospitalComment on above:Performed By: #### [id number] ####[facility] ([facility])[address] [place] [address]QT9 [Moles/Vol]24 mmol/JGquhoj42-81JbfabawfhqMemorial Health System Marietta Memorial HospitalComment on above:Performed By: #### [id number] ####[facility] ([facility])[address] [place], [place] [address]Txorgelrdp [Mass/Vol]1.24 mg/dLNormal 0.60-1.30UnMemorial Health System [facility] Memorial HospitalComment on above:Performed By: #### [id number] ####[facility] ([facility])[address] [place], [place] [address]HPZKYGQQIG FILTRATION RATE ML/MIN/1.73 SQ M.THBZUUEYQ30.8 mL/min/1.73m*2Low>60.0UnMemorial Health System [facility] Memorial HospitalComment on above:Result Comment: [facility]???s estimated glomerular filtration rate (eGFR) will [...] potential consequences that do not disproportionately affect anyone group of individuals. Performed By: #### [id number] ####[facility] ([facility])[address] [place], [place] [address]Yvolrkj [Mass/Vol]120 mg/mWMrpn39-309RvkxssfwxwMemorial Health System Marietta Memorial HospitalComment on above:Performed By: #### [id number] ####[facility] ([facility])[address] [place], [place] [address]Xvnscwbyd [Moles/Vol]4.1 mmol/LNormal 3.5-5.1UnMemorial Health System [facility] Memorial HospitalComment on above:Performed By: #### [id number] ####[facility] ([facility])[address] [facility] [address]Mggkfy [Moles/Vol]138 mmol/GEfcwvg847-228FqkohncyweMemorial Health System Marietta Memorial HospitalComment on above:Performed By: #### [id number] ####[facility] ([facility])[address] [place], [place] [address]Ruzk nitrogen [Mass/Vol]15 mg/dLNormal7-25UnMemorial [facility] System [facility] Memorial HospitalComment on above:Performed By: #### [id number] ####[facility] ([facility])[address] [place], [place] [address]PKGA NITROGEN/CREATININE (MASS RATIO) IN SER/PLAS12.1NormalUnMemorial Health System Marietta Memorial HospitalComment on above: Performed By: #### [id number] ####[facility] ([facility])[address] [place], [place] [address]HMX WITH AUTO DIFFERENTIALon 42-27-2510Tatbszydl (Bld) [#/Vol]0.03 10*3/uLNormal0.00-0.20UnMemorial [facility] Memorial HospitalComment on above: Performed By: #### [id number] ####[facility] ([facility])[address] [place], [place] [address]Lsjljhmie/100 WBC (Bld)0.4 %Normal0.0-1.0UnMemorial Health System Marietta Memorial HospitalComment on above:Performed By: #### [id number] ####[facility] ([facility])[address] [place], [place] [address]Jigzztjgcxb (Bld) [#/Vol]0.26 10*3/uL Normal0.00-0.50UnMemorial Health System [facility] Memorial HospitalComment on above:Performed By: #### [id number] ####[facility] ([facility])[address] [place] [address] Eosinophils/100 WBC (Bld)3.8 %Normal0.0-6.0UnMemorial [facility] Comment on above:Performed By: #### [id number] ####[facility] ([facility])[address] [place], [place] [address]Aqbowwpqztj distribution width (RBC) [Ratio]14.6 % Vdqoff66.5-15.0UnMemorial Health System [facility] Memorial HospitalComment on above:Performed By: #### [id number] ####[facility] ([facility])[address] [place] [address] ERYTHROCYTE MEAN CORPUSCULAR HEMOGLOBIN CONCENTRATION (G/DL) BY NIUMEWGJA13.7 g/dLLow32.0-35.0UnMemorial Health System [facility] Memorial HospitalComment on above:Performed By: #### [id number] ####[facility] ([facility])[address] [place], [place] [address]Mbqwgdvqsn (Bld) [Volume fraction]43.9 %Qzfdtf06.0-50.0UnMemorial Health System [facility] Memorial HospitalComment on above:Performed By: #### [id number] ####[facility] ([facility])[address] [place], [place] [address]Yrxdxttcdl (Bld) [Mass/Vol]13.9 g/dL Nxbadf83.0-17.0UnMemorial Health System [facility] Memorial HospitalComment on above:Performed By: #### [id number] ####[facility] ([facility])[address] [place] [address] Immature granulocytes (Bld) [#/Vol]0.02 10*3/uLNormal0.00-0.20UnMemorial [facility] Memorial HospitalComment on above:Performed By: #### [id number] ####[facility] ([facility])[address] [place], [place] [address]Exnmbkgp granulocytes/100 WBC (Bld)0.3 %Normal0.0-1.0UnMemorial Health System [facility] Memorial HospitalComment on above: Performed By: #### [id number] ####[facility] ([facility])[address] [place] [address]Cvpqcyprept (Bld) [#/Vol]1.91 10*3/uLNormal1.20-4.00 [facility] HospitalComment on above:Performed By: #### [id number] ####[facility] ([facility])[address] [place] [address]Fwgskrfjoho/100 WBC (Bld)28.2 %Nvpkao75.0-45.0UnMemorial Health System [facility] Memorial HospitalComment on above:Performed By: #### [id number] ####[facility] ([facility])[address] [place] [address]EVW (RBC) [Entitic mass]27.0 vpPbbvyi99.0-33.0UnMemorial Health System [facility] Memorial HospitalComment on above:Performed By: #### [id number] ####[facility] ([facility])[address] [place], [place] [address]CEZ (RBC) [Entitic vol] 85.4 kCJtlvax72.0-98.0UnMemorial Health System [facility] Memorial HospitalComment on above: Performed By: #### [id number] ####[facility] ([facility])[address] [place], [place] [address]Gacfuuwyr (Bld) [#/Vol]0.54 10*3/uLNormal0.10-1.00UnMemorial [facility] System [facility] Memorial HospitalComment on above:Performed By: #### [id number] ####[facility] ([facility])[address] [place], [place] [address]Dwwmdxxei/100 WBC (Bld) 8.0 %Normal5.0-12.0UnMemorial Health System Marietta Memorial HospitalComment on above:Performed By: #### [id number] ####[facility] ([facility])[address] [place], [place] [address]Admwdozlsky (Bld) [#/Vol]4.01 10*3/uLNormal1.60-7.60UnMemorial Health System [facility] Memorial HospitalComment on above:Performed By: #### [id number] ####[facility] ([facility])[address] [place] [address]Mknqrkjaipv/100 WBC (Bld)59.3 %Normal 40.0-72.0UnMemorial Health System Marietta Memorial HospitalComment on above:Performed By: #### [id number] ####[facility] ([facility])[address] [place] [address]AWJW (PER 100 WBCS) BY AUTOMATED COUNT0.0 %Isvkfu6OpenjglgbcMemorial Health System Marietta Memorial Hospital Comment on above:Performed By: #### [id number] ####[facility] ([facility])[address] [place] [address]QRYHTKBXU (10*3/UL) IN BLOOD AUTOMATED GUBIB656 10*3/gRVzfcen430-527YfxnuhryasMemorial Health System Marietta Memorial HospitalComment on above: Performed By: #### [id number] ####[facility] ([facility])[address] [place] [address]GXU (Bld) [#/Vol]5.14 10*6/uLNormal3.80-5.70UnMemorial Health System Mari[facility] Memorial HospitalComment on above:Performed By: #### [id number] ####[facility] ([facility])[address] [place] [address]UGA (Bld) [#/Vol]6.77 10*3/uLNormal4.00-10.60UnMemorial Health System [facility] Memorial HospitalComment on above: Performed By: #### [id number] ####[facility] ([facility])[address] [place] [address]MXla 94-38-4731SXA&P reviewed. The patient was examined and there are no changes to the H&P.NormalUnMemorial Health System [facility] Memorial Hospital MAGNESIUMon 42-43-3544Hmbfrwxij [Mass/Vol]2.0 mg/dLNormal1.9-2.7UnMemorial Health System Marietta Memorial HospitalComment on above:Performed By: #### [id number] ####[facility] ([facility])[address] [place] [address]EKSXFTURRAye 01-17-2025 Magnesium [Mass/Vol]3.4 mg/dLNormal2.5-5.0UnMemorial [facility] Comment on above:Performed By: #### [id number] ####[facility] ([facility])[address] [place], [place] [address]NUKE GLUCOSE METER UNSOLICITED RESULTSon 01-17-2025 Glucose [Mass/Vol]153 mg/aGXfin15-235BocrgthgboMemorial Health System Marietta Memorial HospitalComment on above:Order Comment: Waived Testing in the ED is performed under the ED CLIA certificate #[id number].Result Comment: [email or web address] By: #### [id number] #### [facility] ([facility]) [address] [place], [place] [address]Gjplsud [Mass/Vol]89 mg/pGIoegku85-938UimhnpafokMemorial Health System Marietta Memorial HospitalComment on above:Order Comment: Waived Testing in the ED is performed under the ED CLIA certificate #[id number].Result Comment: [email or web address] Performed By: #### [id number] #### [facility] ([facility]) [address] [place], [place] [address] [id number] patient is Moderately Stable - Low risk of patient condition declining or worsening The patient's goals for the shift include pain control The clinical goals for the shift include maintain hemodynamic stability Over the shift, the patient did not make progress toward the following goals. Barriers to progression include chest pain. Recommendations to address these barriers include emotional support, repositioning, music therapy, distraction. NormalUnMemorial Health System Marietta Memorial HospitalBLOOD CULTUREon 00-46-4317Lbqrjbxq identified Cx Nom (Bld)No growth at 5 daysNormalUniversTrumbull Regional Medical CenterComment on above:Order Comment: From a different site than #1.Performed By: #### [id number] ####[facility] ([facility])[address] [place] [address] CBC WITH AUTO DIFFERENTIALon 90-07-1571Wnuwxypnd (Bld) [#/Vol]0.02 10*3/uLNormal 0.00-0.20UnMemorial Health System [facility] Memorial HospitalComment on above:Performed By: #### [id number] ####[facility] ([facility])[address] [place] [address] Basophils/100 WBC (Bld)0.3 %Normal0.0-1.0UnMemorial Health [facility] Comment on above:Performed By: #### [id number] ####[facility] ([facility])[address] [place], [place] [address]Ohstgydbauh (Bld) [#/Vol]0.23 10*3/uLNormal 0.00-0.50UnMemorial Health System Mari[facility] Memorial HospitalComment on above:Performed By: #### [id number] ####[facility] ([facility])[address] [place] [address] Eosinophils/100 WBC (Bld)3.6 %Normal0.0-6.0UnMemorial [facility] Comment on above:Performed By: #### [id number] ####[facility] ([facility])[address] [place], [place] [address]Ukrfqxpotdz distribution width (RBC) [Ratio]14.8 % Pxcgwt45.5-15.0UnMemorial Health System Marietta Memorial HospitalComment on above:Performed By: #### [id number] ####[facility] (BEAKER)[address] [place] [address] ERYTHROCYTE MEAN CORPUSCULAR HEMOGLOBIN CONCENTRATION (G/DL) BY RHSHJXIIH79.4 g/zZJjdxsm36.0-35.0UnMemorial Health System Marietta Memorial HospitalComment on above:Performed By: #### [id number] ####[facility] ([facility])[address] [place], [place] [address]Fjfmtwkggk (Bld) [Volume fraction]43.5 %Hdobev67.0-50.0UnMemorial Health System Marietta Memorial HospitalComment on above:Performed By: #### [id number] ####[facility] (BEAKER)[address] [place], [place] [address]Kvqpwclsaa (Bld) [Mass/Vol]14.1 g/dL Ylbbxf86.0-17.0UnMemorial Health System Marietta Memorial HospitalComment on above:Performed By: #### [id number] ####[facility] ([facility])[address] [place] [address] Immature granulocytes (Bld) [#/Vol]0.02 10*3/uLNormal0.00-0.20UnMemorial Health System Marietta Memorial HospitalComment on above:Performed By: #### [id number] ####[facility] ([facility])[address] [place], [place] [address]Rqxbhein granulocytes/100 WBC (Bld)0.3 %Normal0.0-1.0UnMemorial Health System Marietta Memorial HospitalComment on above: Performed By: #### [id number] ####[facility] ([facility])[address] [place], [place] [address]Sxxupkrydoq (Bld) [#/Vol]1.86 10*3/uLNormal1.20-4.00 [facility] HospitalComment on above:Performed By: #### [id number] ####[facility] ([facility])[address] [place], [place] [address]Nurtcvpfcyt/100 WBC (Bld)28.8 %Qwzubs04.0-45.0UnMemorial Health System Marietta Memorial HospitalComment on above:Performed By: #### [id number] ####[facility] ([facility])[address] [place], [place] [address]ENZ (RBC) [Entitic mass]27.3 poVhedhy73.0-33.0UnMemorial Health System Marietta Memorial HospitalComment on above:Performed By: #### [id number] ####[facility] ([facility])[address] [facility] [place], [place] [address]YGZ (RBC) [Entitic vol] 84.1 xYEgfkxa08.0-98.0UnMemorial Health System Marietta Memorial HospitalComment on above: Performed By: #### [id number] ####[facility] (BEAKER)[address] [place], [place] [address]Ehvouhwcd (Bld) [#/Vol]0.54 10*3/uLNormal0.10-1.00UnMemorial Health System Marietta Memorial HospitalComment on above:Performed By: #### [id number] ####[facility] (BEAKER)[address] [place] [address]Xqsyrcvfe/100 WBC (Bld) 8.4 %Normal5.0-12.0UnMemorial Health System Marietta Memorial HospitalComment on above:Performed By: #### [id number] ####[facility] (BEAKER)[address] [place] [address]Ifuhladhzje (Bld) [#/Vol]3.78 10*3/uLNormal1.60-7.60UnMemorial Health System Marietta Memorial HospitalComment on above:Performed By: #### [id number] ####[facility] ([facility])[address] [place] [address]Bobybxrdgih/100 WBC (Bld)58.6 %Normal 40.0-72.0UnMemorial Health System Marietta Memorial HospitalComment on above:Performed By: #### [id number] ####[facility] ([facility])[address] [place] [address]ZGXU (PER 100 WBCS) BY AUTOMATED COUNT0.0 %Jhtogf2YrmumegfdnMemorial Health System Marietta Memorial Hospital Comment on above:Performed By: #### [id number] ####[facility] (BEAKER)[address] [place] [address]TXIHSEVKU (10*3/UL) IN BLOOD AUTOMATED QMBGK555 10*3/iVUbiblk343-928AsnynlliyyMemorial Health System Marietta Memorial HospitalComment on above: Performed By: #### [id number] ####[facility] (BEAKER)[address] [place], [place] [address]GGE (Bld) [#/Vol]5.17 10*6/uLNormal3.80-5.70UnMemorial Health System Marietta Memorial HospitalComment on above:Performed By: #### [id number] ####[facility] (BEAKER)[address] [place], [place] [address]GTS (Bld) [#/Vol]6.45 10*3/uLNormal4.00-10.60UnMemorial Health System Marietta Memorial HospitalComment on above: Performed By: #### [id number] ####[facility] ([facility])[address] [place], [place] [address]CWDSMOWBBNNEU METABOLIC PANELon 55-92-5918Brgxeyz [Mass/Vol] 3.8 g/dLNormal3.5-5.7UnMemorial Health System Marietta Memorial HospitalComment on above: Performed By: #### [id number] #### [facility] ([facility]) [address] [place], [place] [address]BKK [Catalytic activity/Vol]47 U/YGjrudb33-980MistxgxgycMemorial Health System Marietta Memorial HospitalComment on above:Performed By: #### [id number] #### [facility] ([facility]) [address] [place], [place] [address]DIZ [Catalytic activity/Vol]21 U/LNormal7-52UnMemorial Health System Marietta Memorial HospitalComment on above:Performed By: #### [id number] #### [facility] ([facility]) [address] [place], [place] [address]Volax gap [Moles/Vol]10 mmol/LNormal7-20UnMemorial Health System Marietta Memorial HospitalComment on above:Performed By: #### [id number] #### [facility] ([facility]) [address] [place], [place] [address]YPA [Catalytic activity/Vol]18 U/RDddxdf57-63ScaxytimpvMemorial Health System Marietta Memorial HospitalComment on above:Performed By: #### [id number] #### [facility] ([facility]) [address] [place], [place] [address]Tgzvubtob [Mass/Vol]0.8 mg/dLNormal0.3-1.0UnMemorial Health System Marietta Memorial HospitalComment on above:Performed By: #### [id number] #### [facility] ([facility]) [address] [place], [place] [address]Weauwkf [Mass/Vol]8.3 mg/dLLow8.6-10.3UnMemorial Health System Marietta Memorial HospitalComment on above:Performed By: #### [id number] #### [facility] ([facility]) [address] [place] [address]Gjntmlsx [Moles/Vol]111 mmol/QWiyj52-395XpleobjfvcMemorial Health System Marietta Memorial HospitalComment on above:Performed By: #### [id number] #### [facility] ([facility]) [address] [place] [address]FL5 [Moles/Vol]22 mmol/QBhpzpn43-13KacqymgxjgMemorial Health System Marietta Memorial HospitalComment on above:Performed By: #### [id number] #### [facility] ([facility]) [address] [place] [address]Vaandkdzql [Mass/Vol]1.12 mg/dLNormal0.60-1.30UnMemorial Health System Marietta Memorial HospitalComment on above:Performed By: #### [id number] #### [facility] ([facility]) [address] [place] [address]QVLGIQYQLV FILTRATION RATE ML/MIN/1.73 SQ M.FSRXQWEUZ95.4 mL/min/1.73m*2Low>60.0UnMemorial Health System Marietta Memorial HospitalComment on above:Result Comment: [facility]???s estimated glomerular filtration rate (eGFR) will [...] potential consequences that do not disproportionately affect anyone group of individuals.Performed By: #### [id number] #### [facility] ([facility]) [address] [place] [address]Budwzgt [Mass/Vol]97 mg/hANhupmm21-143VxfrfhhlkrMemorial Health System Marietta Memorial HospitalComment on above:Performed By: #### [id number] #### [facility] ([facility]) [address] [place] [address]Tzbebiisq [Moles/Vol]4.1 mmol/LNormal3.5-5.1UnMemorial Health System Marietta Memorial HospitalComment on above:Performed By: #### [id number] #### [facility] ([facility]) [address] [place] [address]Pizrarh [Mass/Vol]5.9 g/dLLow6.0-8.3UnMemorial Health System Marietta Memorial HospitalComment on above:Performed By: #### [id number] #### [facility] ([facility]) [address] [place] [address]Zvslty [Moles/Vol]139 mmol/CPozxev657-321RhrvmhpepdMemorial Health System Marietta Memorial HospitalComment on above:Performed By: #### [id number] #### [facility] ([facility]) [address] [place] [address]Tzdt nitrogen [Mass/Vol]16 mg/dLNormal7-25UnMemorial Health System Marietta Memorial HospitalComment on above:Performed By: #### [id number] #### [facility] ([facility]) [address] [place], [place] [address]ZVTI NITROGEN/CREATININE (MASS RATIO) IN SER/PLAS14.3Normal [facility] HospitalComment on above:Performed By: #### [id number] #### [facility] ([facility]) [address] [place] [address]NOKDGHXtl 18-74-4204KRTHUZWMsazidicdb Consult Note Reason for Consult: bradycardia, chest pain HPI: Flynn Arnett is a 59 y.o. adult with a past medical history heart failure with preserved ejection fraction, hypertension, severe MR s/p mitral valve repair/annuloplasty, left atrial appendage clip, PFO closure, hyperlipidemia, AAA, DM2 who presents as a transfer from [facility]. Patient reports left-sided chest pain which started [...] for his mitral valve. Patient presented to [facility] with these complaints and was found to [...] to 30 bpm. He was transferred to [facility] for higher level of care. At [facility], his heart rate was at his baseline [...] (NEURONTIN) 200 mg, oral, 2 times daily HYDROcodone-acetaminophen ([place]) 5-325 mg tablet 1 tablet, oral, Every [...] Reported on 06/30/2023) 120 capsule 0 HYDROcodone-acetaminophen ([place]) 5-325 mg tablet Take 1 tablet by mouth every 4 (four) hours if needed. lisinopril 10 mg tablet Take 1 tablet (10 mg) by mouth in the morning. (Patient taking differ (more content not included)...NormalUnMemorial Health System Marietta Memorial HospitalHEMOGLOBIN A1Con 22-43-7378Ztjgagv [Mass/Vol]143 mg/dLNormalUniversTrumbull Regional Medical CenterComment on above:Performed By: #### [id number] #### [facility] ([facility]) [address] [place], [place] [address]VcL2z (Bld) [Mass fraction]6.6 %High4.0-6.0UnMemorial Health System Marietta Memorial HospitalComment on above:Performed By: #### [id number] #### [facility] ([facility]) [address] [place], [place] [address]MVEW SENSITIVITY TROPONIN Ion 62-52-6193UH TROPONIN I (NG/L)54 ng/LCritically high<18UnMemorial Health System Marietta Memorial HospitalComment on above: Performed By: #### [id number] #### [facility] ([facility]) [address] [place], [place] [address]KP TROPONIN I (NG/L)55 ng/LCritically high<18UnMemorial Health System Marietta Memorial HospitalComment on above:Performed By: #### [id number] ####[facility] ([facility])[address] [place], [place] [address]BKve 80-82-3007RJAgdfqh For Consult chest pain, sinus leann, new onset afib Referring Provider: Lauren Rios MD, [facility] History Of Present Illness Flynn Arnett is a 59 y.o. adult presenting with bradycardia and chest pain. He states for several months now he has been limited physically, especially while climbing stairs He can do 5-10 and then has to stop due to SOB and chest discomfort that is non-radiating, mild in severity, and relieved with rest. In [facility] ER, above noted and he was significantly [...] Reported on 06/30/2023) 120 capsule 0 HYDROcodone-acetaminophen ([place]) 5-325 mg tablet Take 1 tablet by [...] Final Atrial Rate 01/16/2025 49 BPM Final NE Interval 01/16/2025 190 ms Final QRS DURATION 01/16/2025 84 ms Final QT Interval 01/16/2025 480 ms Final QTC CALCULATION(BAZETT) 01/16/2025 433 ms Final R-[place] 01/16/2025 47 degrees Final T Wave [place] 01/16/2025 71 degrees Final Sodium 01/16/2025 139 136 - 145 mmol/L Final Potassium 01/16/2025 4.1 3.5 - 5.1 mmol/L Final Chloride 0 (more content not included)...NormalOhioHealth Berger HospitalHP Attestation signed by Champ Caceres MD at 01/17/2025 10:12 AM The patient was evaluated with the resident/fellow Flynn Butts David is a 59 y.o. adult with a past medical history of heart failure with preserved ejection fraction, hypertension, mitral valve prolapse with regurgitation s/p mitral valve repair, hyperlipidemia, ytj-dyicvan-tqjecjgza type 2 diabetes, AAA who presents as a transfer from [facility] for chest pain Critical Care services were [...] Arnett Age - 59 y.o. - 1965 [facility] # - [id number] Date of Admission - 01/16/2025 2:24 PM Chief Complaint History of Present Illness Flynn Arnett is a 59 y.o. adult with a past medical history of heart failure with preserved ejection fraction, hypertension, mitral valve prolapse with regurgitation s/p mitral valve repair, hyperlipidemia, cwu-ohadfku-ibwhaqdvo type 2 diabetes, AAA who presents as a transfer from [facility]. Patient developed left lower chest pain yesterday, [...] had racing heartbeat. He went to the [facility] with these complaints, where reportedly his heart [...] to 30 bpm. He was transferred to [facility] for higher level of care. At [facility], his heart rate was at his baseline [...] Flynn's father and mother. Review of Systems: @SupplyBetter2@ Physical Exam Ht Readings from Last 1 [...] rales Abdomen: Soft, nontender, (more content not included)...NormalUnMemorial Health System Marietta Memorial HospitalLACTIC ACID WITH 4 HOUR REFLEXon 45-49-0363BDIXDLJ (MMOL/L) IN SER/PLAS0.7 mmol/LNormal0.5-2.2UnMemorial Health System Marietta Memorial HospitalComment on above:Performed By: #### [id number] #### [facility] ([facility]) [address] [facility] [place], [place] [address]TMSCF PANELon 04-39-7305HXES/HDL5.3 mg/dLNormalUniBarney Children's Medical CenterComment on above:Performed By: #### [id number] #### [facility] ([facility]) [address] [place], [place] [address]Alfqtxjysjc [Mass/Vol]169 mg/dUWhlrle988-817EjhkputvriMemorial Health System Marietta Memorial HospitalComment on above:Performed By: #### [id number] #### [facility] ([facility]) [address] [facility] [place], [place] [address]Ywndmvyne [Mass/Vol]103 mg/dLNormal<150UnMemorial Health System Marietta Memorial HospitalComment on above:Result Comment: TRIGLYCERIDE REFERENCE RANGE: 20 YEARS AND OLDER CARDIOVASCULAR RISK LESS THAN 150 mg/dL LOW RISK 150 TO 199 mg/dL BORDERLINE RISK 200 mg/dL AND GREATER HIGH RISKPerformed By: #### [id number] #### [facility] ([facility]) [address] [place], [place] [address]Thivcdrbl [Mass/Vol]116 mg/dLNormal0-160UnMemorial Health System Marietta Memorial HospitalComment on above:Performed By: #### [id number] #### [facility] ([facility]) [address] [place], [place] [address]Gbpmderne [Mass/Vol]32 mg/bNDktiwr74-83NwmulmxpnwMemorial Health System Marietta Memorial HospitalComment on above:Performed By: #### [id number] #### [facility] ([facility]) [address] [place], [place] [address]XAQ HDL CHOL. (LDL+VLDL)137NormalUniversTrumbull Regional Medical CenterComment on above:Performed By: #### [id number] #### [facility] ([facility]) [address] [facility] [place], [place] [address]JDCIY VLDL-C21 mg/dLNormal0-40UnMemorial Health System Marietta Memorial HospitalComment on above:Performed By: #### [id number] #### [facility] ([facility]) [address] [place], [place] [address]VGCT GLUCOSE METER UNSOLICITED RESULTSon 15-41-2026Wntyxpr [Mass/Vol]105 mg/xFHzzwtn96-478FevhdwjqdkMemorial Health System Marietta Memorial HospitalComment on above:Order Comment: Waived Testing in the ED is performed under the ED CLIA certificate #[id number].Result Comment: pmendozPerformed By: #### [id number] #### [facility] ([facility]) [address] [place] [address]Cmqgebx [Mass/Vol]124 mg/xVXhej47-060QcutplpsotMemorial Health System Marietta Memorial HospitalComment on above:Order Comment: Waived Testing in the ED is performed under the ED CLIA certificate #[id number].Result Comment: tdelp Performed By: #### [id number] #### [facility] ([facility]) [address] [place] [address]GSRqf 66-27-7193WAXAEVZXSVX (MIU/L) IN SER/PLAS BY DETECTION LIMIT <= 0.05 MIU/L1.64 mIU/LNormal0.34-5.60UnMemorial Health System [facility] Hospital Comment on above:Performed By: #### [id number] #### [facility] ([facility]) [address] [place] [address]Duhuta Visiton [id number]-up [id number] Carlos Arnettn 1965 M Date Provider Department Center 12/06/2024 ADONIS REBOLLEDO Family History Problem Relation Age of Onset No Known Problems Mother No Known Problems Father Family Status - Relation Status Age at Mother Father Level of Service:34580 NE OFFICE/OUTPATIENT ESTABLISHED MOD MDM 30 [facility]Office Visiton 25-21-6222Lzebjy-up visit [id number] Flynn Arnett 1965 M Date Provider Department Center 10/27/2024 ADONIS REBOLLEDO Family History Problem Relation Age of Onset No Known Problems Mother No Known Problems Father Family Status - Relation Status Age at Mother Father Level of Service:78849 NE OFFICE/OUTPATIENT ESTABLISHED MOD MDM 30 [facility] CenterCBC AUTO DIFFon 37-76-7843XCOW #0.0 103/ul Normal0.0-0.1The [facility] HealthComment on above:Performed By: #### CBC #### [facility] [address] [address] [address] John BertrandBasophils/100 WBC (Bld)0.4 %Normal0.2-2.0[facility] Comment on above:Performed By: #### CBC #### [facility] [address] [address] [address] John Beltran #0.2 103/ulNormal0.0-0.7The [facility] HealthComment on above: Performed By: #### CBC #### [facility] [address] [address] [address] John Wilsonosinophils/100 WBC (Bld)3.1 %Normal0.9-7.0The [facility] Comment on above:Performed By: #### CBC #### [facility] [address] [address] [address] John Wilsonrythrocyte distribution width (RBC) [Ratio]13.9 %Ncoduk39.0-15.0 [facility] HospitalComment on above:Performed By: #### CBC #### [facility] [address] [address] [address] John BertrandHematocrit (Bld) [Volume fraction]43.8 %Vbuftr05.0-54.0[facility] HospitalComment on above:Performed By: #### CBC #### [facility] [address] [address] [address] John BertrandHemoglobin (Bld) [Mass/Vol]14.4 g/xDDlbsqy88.0-18.0[facility] HospitalComment on above:Performed By: #### CBC #### [facility] [address] [address] [address] John Wells #0.01 10e3/ulNormal0.00-0.03[facility] on above:Performed By: #### CBC #### [facility] [address] [address] [address] John Wells %0.2 %Normal0.0-0.5The [facility] HealthComtr[facility] on above: Performed By: #### CBC #### [facility] [address] [address] [address] John Soler #2.3 103/ulNormal1.2-3.8The [facility] HealthComment on above:Performed By: #### CBC #### [facility] [address] [place] [address] Dr. John Mariehocytes/100 WBC (Bld)41.1 %Kkgnsf30.5-60.0[facility] HospitalComtr[facility] on above:Performed By: #### CBC #### [facility] [address] [place] [address] Dr. John Rouse DIFF REQNONormalThe [facility] HealthComment on above: Performed By: #### CBC #### [facility] [address] [place] [address] Dr. John Chawla (RBC) [Entitic mass]27.6 tuPdrjln24.9-34.0[facility] on above:Performed By: #### CBC #### [facility] [address] [place] [address] Dr. John Baron (RBC) [Mass/Vol]32.9 g/jCDnuufy23.9-35.2The [facility] Medical Centerment on above:Performed By: #### CBC #### [facility] [address] [place] [address] Dr. John Baron (RBC) [Entitic vol]83.9 wFJllenx37.0-94.0The [facility] Medical Centerment on above:Performed By: #### CBC #### [facility] [address] [place] [address] Dr. John Weber #0.5 103/ulNormal0.3-0.8The [facility] HealthComment on above:Performed By: #### CBC #### [facility] [address] [place] [address] Dr. John De Leónocytes/100 WBC (Bld)9.0 %Normal1.7-12.0The [facility] Comment on above:Performed By: #### CBC #### [facility] [address] [place] [address] Dr. John Figueredo #2.5 103/ulNormal1.4-6.5The [facility] HealthComment on above:Performed By: #### CBC #### [facility] [address] [place] [address] Dr. John Camiloutrophils/100 WBC (Bld)46.2 %Czqmxd18.0-75.0The [facility] HealthComment on above:Performed By: #### CBC #### [facility] [address] [place] [address] Dr. John Albertolet mean volume (Bld) [Entitic vol]9.6 fLNormal9.5-13.5The [facility] HealthComment on above:Performed By: #### CBC #### [facility] [address] [place] [address] Dr. John BertrandPLT223 103/baTvfftc149-960Ihw [facility] HealthComment on above: Performed By: #### CBC #### [facility] [address] [place] [address] Dr. John BertrandRBC5.22 106/ulNormal4.70-6.10The [facility] HealthComment on above:Performed By: #### CBC #### [facility] [address] [place] [address] Dr. John BertrandWBC5.5 103/ulNormal4.0-11.0The [facility] HealthComment on above: Performed By: #### CBC #### [facility] [address] [place] [address] Dr. John MotaF CHEM 8 (BAS METB)on 67-55-2717Jsdym gap [Moles/Vol]9.3 mmol/LNormalThe [facility] HealthComment on above:Performed By: #### BMP #### [facility] [address] [place] [address] Dr. John BertrandCalcium [Mass/Vol]8.7 mg/dLNormal8.5-10.1The [facility] Comment on above:Performed By: #### BMP #### [facility] [address] [address] [address] John BertrandChloride [Moles/Vol]105 mmol/RQhugrd03-155Bpb [facility] Comment on above:Performed By: #### BMP #### [facility] [address] [place] [address] Dr. John BertrandCO2 [Moles/Vol]27.6 mmol/OKqtgzx31.0-32.0[facility] Comment on above:Performed By: #### BMP #### [facility] [address] [place] [address] Dr. John BertrandCreatinine [Mass/Vol]1.28 mg/dLNormal0.70-1.30The [facility] HealthComment on above:Performed By: #### BMP #### [facility] [address] [place] [address] Dr. John WilsonGFR-AF MALAWIAN>60Normal>=60The [facility] HealthComment on above:Performed By: #### BMP #### [facility] [address] [place] [address] Dr. John WilsonGFR-NON AF PLZYYDFQ10 mL/min/1.34o9Jqmuzraqxa low>=60The [facility] HealthComment on above:Performed By: #### BMP #### [facility] [address] [place] [address] Dr. Jhon BertrandGlucose [Mass/Vol]137 mg/dLCritically hrlb25-074Zsh [facility] HealthComment on above:Performed By: #### BMP #### [facility] [address] [place] [address] Dr. John BertrandPotassium [Moles/Vol]3.9 mmol/LNormal3.5-5.1[facility] Comment on above:Performed By: #### BMP #### [facility] [address] [place] [address] Dr. John Suttondium [Moles/Vol]138 mmol/AWdyaco331-877Rhm [facility] Comment on above:Performed By: #### BMP #### [facility] [address] [place] [address] Dr. John Hill nitrogen [Mass/Vol]16.0 mg/dLNormal7.0-18.0[facility] HospitalComment on above:Performed By: #### BMP #### [facility] [address] [place] [address] Dr. John Hill nitrogen/Creatinine [Mass ratio]12.5 mg/mgNormalThe [facility] HealthComment on above:Performed By: #### BMP #### [facility] [address] [place] [address] Dr. John Silva AUTO DIFFon 74-28-5464PMGV #0.0 103/ulNormal0.0-0.1[facility] HospitalComment on above:Performed By: #### CBC #### [facility] [address] [place] [address] Dr. John BertrandBasophils/100 WBC (Bld)0.6 %Normal0.2-2.0[facility] Comment on above:Performed By: #### CBC #### [facility] [address] [place] [address] Dr. John Beltran #0.1 103/ulNormal0.0-0.7The [facility] HealthComment on above: Performed By: #### CBC #### [facility] [address] [place] [address] Dr. John Wilsonosinophils/100 WBC (Bld)2.7 %Normal0.9-7.0The [facility] Comment on above:Performed By: #### CBC #### [facility] [address] [place] [address] Dr. Yilan ChangErythrocyte distribution width (RBC) [Ratio]13.9 %Xbmlcp14.0-15.0 The [facility] HealthComment on above:Performed By: #### CBC #### [facility] [address] [place] [address] Dr. John BertrandHematocrit (Bld) [Volume fraction]44.8 %Gjtzsr49.0-54.0The [facility] HealthComment on above:Performed By: #### CBC #### [facility] [address] [place] [address] Dr. John BertrandHemoglobin (Bld) [Mass/Vol]14.8 g/dZPgaxed73.0-18.0The [facility] HealthComment on above:Performed By: #### CBC #### [facility] [address] [place] [address] Dr. John Wells #0.01 10e3/ulNormal0.00-0.03The [facility] HealthComment on above:Performed By: #### CBC #### [facility] [address] [place] [address] Dr. John Wells %0.2 %Normal0.0-0.5The [facility]Comtr[facility] on above: Performed By: #### CBC #### [facility] [address] [place] [address] Dr. John MarieH #1.9 103/ulNormal1.2-3.8The [facility] HealthComment on above:Performed By: #### CBC #### [facility] [address] [place] [address] Dr. John Vaughanmphocytes/100 WBC (Bld)37.0 %Qwjcyd66.5-60.0The [facility]Comtr[facility] on above:Performed By: #### CBC #### [facility] [address] [place] [address] Dr. John PrescottUAL DIFF REQNONormalThe [facility] HealthComment on above: Performed By: #### CBC #### [facility] [address] [place] [address] Dr. John Baron (RBC) [Entitic mass]27.2 ruRwjcjb44.9-34.0The [facility] HealthComment on above:Performed By: #### CBC #### [facility] [address] [place] [address] Dr. John Baron (RBC) [Mass/Vol]33.0 g/hVJtrqop71.9-35.2The [facility] HealthComment on above:Performed By: #### CBC #### [facility] [address] [place] [address] Dr. John Baron (RBC) [Entitic vol]82.4 eQHlpxxx18.0-94.0The [facility] HealthComment on above:Performed By: #### CBC #### [facility] [address] [place] [address] Dr. John Weber #0.5 103/ulNormal0.3-0.8The [facility] HealthComment on above:Performed By: #### CBC #### [facility] [address] [place] [address] Dr. John De Leónocytes/100 WBC (Bld)8.8 %Normal1.7-12.0The [facility] Comment on above:Performed By: #### CBC #### [facility] [address] [place] [address] Dr. John Figueredo #2.7 103/ulNormal1.4-6.5The [facility] HealthComment on above:Performed By: #### CBC #### [facility] [address] [place] [address] Dr. John Camiloutrophils/100 WBC (Bld)50.7 %Ppbzeh19.0-75.0The [facility] HealthComment on above:Performed By: #### CBC #### [facility] [address] [place] [address] Dr. John Albertolet mean volume (Bld) [Entitic vol]9.5 fLNormal9.5-13.5The [facility] HealthComment on above:Performed By: #### CBC #### [facility] [address] [address] [address] John BertrandPLT235 103/usUttmsz784-951Dth [facility] on above: Performed By: #### CBC #### [facility] [address] [address] [address] John BertrandRBC5.44 106/ulNormal4.70-6.10The [facility] HealthComment on above:Performed By: #### CBC #### [facility] [address] [address] [address] John BertrandWBC5.3 103/ulNormal4.0-11.0The [facility]Comtr[facility] on above: Performed By: #### CBC #### [facility] [address] [address] [address] John Reynaga THYROXINE INDEX T7on 20-39-5162XEP0.50Ippvtx4.30-4.50The [facility] on above:Performed By: #### TSH, CMP, T7, LIPID ####[facility] [address] [address]Dr. John BertrandT3U36.0 %Tnxxda63.0-40.0The [facility] on above: Performed By: #### TSH, CMP, T7, LIPID ####[facility] [address] [address]Dr. John BertrandT4 [Mass/Vol]6.00 ug/dLNormal 4.50-12.10[facility] on above:Performed By: #### TSH, CMP, T7, LIPID ####[facility] [address] [address]Dr. John BertrandGLYCOHEMOGLOBIN A1Con 08-11-8061DIL RECOMMENDATIONSEE BELOW NormalThe [facility] on above:Result Comment: ADA RECOMMENDED LIMIT 4.0 - 6.0 ADA THERAPEUTIC TARGET < 7.0 ACTION SUGGESTED > 7.0Performed By: #### A1C #### [facility] [address] [address] [address] John BertrandGlucose [Mass/Vol]154 mg/dLSelect Medical Specialty Hospital - AkronComment on above:Performed By: #### A1C #### [facility] [address] [address] [address] John BertrandHbA1c (Bld) [Mass fraction]7.0 %Critically high4.5-6.2The [facility] HealthComment on above:Performed By: #### A1C #### [facility] [address] [address] [address] John BertrandLIPID PROFILEon 92-04-8007EPVV-HDL RATIO NORMSEE [facility] CenterComment on above:Result Comment: 3.3 - 4.4 LOW RISK 4.4 - 7.1 AVERAGE RISK 7.1 - 11.0 MODERATE RISK >11.0 HIGH RISKPerformed By: #### TSH, CMP, T7, LIPID ####[facility] [address] [address]Dr. John BertrandCholesterol [Mass/Vol]151 mg/dLNormal<=200The [facility] HealthComment on above:Performed By: #### TSH, CMP, T7, LIPID ####[facility] [address] [address]DrAgnes Bertrand Cholesterol in HDL [Mass/Vol]36 mg/dLCritically cxw91-10Thu [facility] Comment on above:Performed By: #### TSH, CMP, T7, LIPID ####[facility] [address] [address]DrAgnes BertrandCholesterol in LDL [Mass/Vol]101.4 mg/dLSelect Medical Specialty Hospital - AkronComment on above:Performed By: #### TSH, CMP, T7, LIPID ####[facility] [address] [address]DrAgnes BertrandCholesterol.total/Cholesterol in HDL [Mass ratio]4.2 {ratio}NormalThe [facility] HealthComment on above:Performed By: #### TSH, CMP, T7, LIPID ####[facility] [address] [address]Dr. Yilan ChangHDL NORMAL> or = 60 mg/dl - LOW CARDIOVASCULAR RISK <40 mg/dl - HIGH CARDIOVASCULAR RISKSelect Medical Specialty Hospital - AkronComment on above:Performed By: #### TSH, CMP, T7, LIPID ####[facility] [address] [address]Dr. Yilan ChangLDL CALC NORMALSEE BELOWSelect Medical Specialty Hospital - AkronComment on above:Result Comment: <100 mg/dl OPTIMAL 100 - 129 mg/dl NEAR OR ABOVE OPTIMAL 130 - 159 mg/dl BORDERLINE HIGH 160 - 189 mg/dl HIGH >190 mg/dl VERY HIGHPerformed By: #### TSH, CMP, T7, LIPID ####[facility] [address] [address]Dr. Yilan ChangTriglyceride [Mass/Vol]68 mg/dLNormal<=150The [facility] on above:Performed By: #### TSH, CMP, T7, LIPID ####[facility] [address] [place], [place] [address]Dr. Yilan ChangVLDL CALC13.6 mg/dLSelect Medical Specialty Hospital - AkronComtrinity health grand rapids hospital on above:Performed By: #### TSH, CMP, T7, LIPID ####[facility] [address] [address]Dr. Yilan ChangPROF 14(COMP METB)on 76-81-8453Lhpijlw [Mass/Vol]3.8 g/dLNormal3.4-5.0The [facility] HealthComtrinity health [facility] hospital on above:Performed By: #### TSH, CMP, T7, LIPID ####[facility] [address] [address]Dr. Natalielan ChangAlbumin/Globulin [Mass ratio]1.1 {ratio}NormalThe [facility] on above:Performed By: #### TSH, CMP, T7, LIPID ####[facility] [address] [address]Dr. Natalielan ChangALP [Catalytic activity/Vol]71 U/PJqytbt06-464Omb [facility]terson Medical Centerment on above:Performed By: #### TSH, CMP, T7, LIPID ####[facility] [address] [address]Dr. Yilan ChangALT [Catalytic activity/Vol]80 U/LCritically gofj99-63Qix [facility] HealthComment on above:Performed By: #### TSH, CMP, T7, LIPID ####[facility] [address] [address]Dr. Yilan ChangAnion gap [Moles/Vol]11.2 mmol/LNormalThe [facility] HealthComment on above:Performed By: #### TSH, CMP, T7, LIPID ####[facility] Pd[address] [place], [place] [address]Dr. Yilan ChangAST [Catalytic activity/Vol]39 U/L Critically ttbu38-65Yta [facility] HealthComment on above:Performed By: #### TSH, CMP, T7, LIPID ####[facility] [address] [place], [place] [address]Dr. Yilan ChangBilirubin [Mass/Vol]0.4 mg/dLNormal 0.2-1.0The [facility] HealthComment on above:Performed By: #### TSH, CMP, T7, LIPID ####[facility] [address] [place], [place] [address]Dr. Yilan ChangCalcium [Mass/Vol]9.2 mg/dLNormal8.5-10.1The [facility] HealthComtr[facility] health [facility] on above:Performed By: #### TSH, CMP, T7, LIPID ####[facility] [address] [place], [place] [address]Dr. Yilan Bertrand Chloride [Moles/Vol]107 mmol/LRbardl77-431Sus [facility] HealthComment on above: Performed By: #### TSH, CMP, T7, LIPID ####[facility] [address] [place], [place] [address]Dr. Yilan ChangCO2 [Moles/Vol]26.8 mmol/LNormal 21.0-32.0The [facility] HealthComment on above:Performed By: #### TSH, CMP, T7, LIPID ####[facility] [address] [address]Dr. Yilan ChangCreatinine [Mass/Vol]1.21 mg/dLNormal0.70-1.30The [facility] HealthComment on above:Performed By: #### TSH, CMP, T7, LIPID ####[facility] [address] [address]Dr. Yilan ChangEGFR- AF MALAWIAN>60Normal>=60The [facility] HealthComment on above:Performed By: #### TSH, CMP, T7, LIPID ####[facility] [address] [address]Dr. Yilan ChangEGFR-NON AF MALAWIAN>60Normal>=60The [facility] HealthComment on above:Performed By: #### TSH, CMP, T7, LIPID ####[facility] M[address] [place], [place] [address]Dr. Yilan ChangGlobulin (S) [Mass/Vol]3.5 g/dLNormalThe [facility] HealthComment on above:Performed By: #### TSH, CMP, T7, LIPID ####[facility] Bdlbe[address]ugn[address] [place], [place] [address]Dr. Yilan ChangGlucose [Mass/Vol]140 mg/dLCritically dktb53-126Tvt [facility]Comment on above: Performed By: #### TSH, CMP, T7, LIPID ####[facility] [address] [place], [place] [address]Dr. Yilan ChangPotassium [Moles/Vol]4.0 mmol/L Normal3.5-5.1The [facility] HealthComment on above:Performed By: #### TSH, CMP, T7, LIPID ####[facility] [address] [place], [place] [address]Dr. Yilan ChangProtein [Mass/Vol]7.3 g/dLNormal6.4-8.2The [facility] Comment on above:Performed By: #### TSH, CMP, T7, LIPID ####[facility] [address] [place], [place] [address]Dr. Yilan ChangSodium [Moles/Vol]141 mmol/UBpoast773-968Joz [facility] HealthComment on above: Performed By: #### TSH, CMP, T7, LIPID ####[facility] [address] [place], [place] [address]Ni. Yilan ChangUrea nitrogen [Mass/Vol]11.0 mg/dLNormal7.0-18.0The [facility] HealthComment on above:Performed By: #### TSH, CMP, T7, LIPID ####[facility] [address] [place], [place] [address]Li. Yilan ChangUrea nitrogen/Creatinine [Mass ratio]9.1 mg/mgNormalThe [facility] HealthComment on above:Performed By: #### TSH, CMP, T7, LIPID ####[facility] [address] [place], [place] [address]. John BertrandTSHon 87-47-1817SDN3.532 uIU/mLNormal0.358-3.740The [facility] Comment on above:Performed By: #### TSH, CMP, T7, LIPID ####[facility] [address] [address]Dr. Nataliebrenda JerzyPhysician Referralon 06-44-6559Qipkyhmij Referral [id number]#1.00CD:[address] [place], [place] [address]CT ABD/PELV W CONon 43-82-5355UL ABD/PELV W CONEXAMINATION: CT ABD/PELV W CON HISTORY: Umbilical hernia [...] Electronically authenticated by: GLORIA STRANGE Date: 2022-12-16 09:[address] [place], [place] [address]ECHOCARDIO M/2D COMPLETEon 06-40-1689NDGDWNSFXC M/2D COMPLETE Patient: FLYNN ARNETT Exam Date: 12/16/2022 : 1965 Gender:M Ordering : DR LAUREN RIOS . Admission #: [id number] Family : Order #: [id number] CLICK HERE TO VIEW EXAM ECHOCARDIOGRAM REPORT [...] by: Adonis Webster M.D. on 12/16/2022 at 12:11[facility] - AkronCovid-19 PCR (CVDTBH)on 15-83-6664KOWM-CoV-2 (COVID-19) RNA THALIA+probe Ql (Unsp spec)Not detectedNormalNOT DETECTEDWexner Medical Center on above: Result Comment: This test is not yet approved or cleared by the [place] FDA. When there are no FDA-approved or cleared tests available, and other criteria are met, FDA can make tests available under an emergency access mechanism called an Emergency Use Authorization (EUA). The EUA for this test is supported by the [place] of Health and Human Service's (HHS's) declaration [...] of clinical signs and symptoms consistent with SARS-CoV-2.Performed By: #### CVDTBH #### [facility] [address] [place] [address] Dr. John Snowden AND B AGon 05-42-0780YNAJVPPULCQOMWayne HealthCare Main Campus on above:Result Comment: Negative for Flu A protein angiten. Infection due to Flu A cannot be ruled out. FluA angiten in the sample may be below the detection limit of the test.Performed By: #### INFLUAB #### [facility] [address] [place] [address] Dr. John AntonioUBNEGMIKE [facility] on above: Result Comment: Negative for Flu B protein antigen. Infection due to Flu B cannot be ruled out. FluB antigen in the sample may be below the detection limit of the test.Performed By: #### INFLUAB #### [facility] [address] [place] [address] Dr. John Snowden AGNegativeNormalNEGATIVE SEE COMMENTThe [facility] on above:Performed By: #### INFLUAB #### [facility] [address] [place] [address] Dr. John BertrandINFLUENZA B AGNegativeNormalNEGATIVE SEE COMMENTThe [facility] HealthComment on above:Performed By: #### INFLUAB #### [facility] [address] [place] [address] Dr. John BertrandINTERNAL CONTROLSWithin Normal LimitsNormalWithin Normal Limits The [facility] HealthComment on above:Performed By: #### INFLUAB #### [facility] [address] [place] [address] Dr. John BertrandSYMPTOMATIC COVID-19 ANTIGENon 59-44-9255OMR StatementSEE BELOW NormalThe [facility]Patterson Medical Centerment on above:Result Comment: This test has not been FDA [...] declaration is terminated or authorization is revoked sooner.Performed By: #### CVDAGS #### [facility] [address] [place] [address] Dr. John BertrandSARS-CoV-2 (COVID-19) RNA THALIA+probe Ql (Unsp spec)NegativeNormal NEGATIVEThe [facility] HealthComment on above:Performed By: #### CVDAGS #### [facility] [address] [place] [address] Dr. John Bertrand Vital Signs Date TimeVital SignValuePerforming JdoxelvwyIcocsolx68-75-5651 09:20-0400Body .26 Karine Jackson Other [employer] Other 08-06-2023 09:20-0400Body mass index (BMI) [Ratio] 33.96 kg/s2HsbcqtMonica Jackson Other [employer] Other 08-06-2023 09:20-0400Body fcfiglllfnf05 [degF]Monica Jackson Other [employer] Other 08-06-2023 09:20-0400Body hnpyzk387.33 kgMonica Jackson Other [employer] Other 08-06-2023 09:20-0400Diastolic blood menktjap717 mm[Hg]Monica Jackson Other [employer] Other 08-06-2023 09:20-0400Respiratory rate18 /minMonica Jackson Other [employer] Other 08-06-2023 09:20-9890BrP7% (BldA) [Mass fraction]97 % Monica Jackson Other [employer] Other 08-06-2023 09:20-0400Systolic blood qyzccwqs597 mm[Hg] Monica Jackson Other [employer] Other 04-07-2023 15:29-0400Blood Pressure LocationMichael NILL Genebl[facility] Seppdihh87-49-7026 15:29-0400Diastolic blood oiuffrxr81 mm[Hg]Colt NILL [facility]bl[facility] Pdpehziu70-27-9737 15:29-0400Heart rate 80 /minMichael NILL [facility] Skbeuitx99-63-2098 15:29-0400 Respiratory rate16 /minMichaeangelica NILL General Surgery Itemigbm98-39-9385 15:29-0400Systolic blood lfbaybuz651 mm[Hg]Colt NILL General Surgery Flavia Encounters Encounter DateEncounter TypeCare ProviderFacilityStart: 07-11-2025 End: 23-18-7570homxkcjsazGMLYCincinnati Children's Hospital Medical Centertart: 72-71-4335qbkdjvmndjKINGCincinnati Children's Hospital Medical Centertart: 05-31-2025 End: 86-89-1082xdfvxolgbnCVIMCincinnati Children's Hospital Medical Centertart: 46-02-3060indwdatpxbYIHLCincinnati Children's Hospital Medical Centertart: 05-10-2025 End: 83-93-4428upbouwbuasNIPNCincinnati Children's Hospital Medical Centertart: 03-07-2025 End: 58-23-2897halobeatshBOWCSouthwest General Health Centertart: 37-81-6281nxcxejbkjhFYQYCincinnati Children's Hospital Medical Centertart: 01-31-2025 End: 97-87-0380qxmrzinppvLOTFAvita Health Systemtart: 13-60-2032lbovsjogehCGPOFostoria City Hospitaltart: 13-92-2901Bdywkugrqo and management of inpatientSouthwest General Health Centertart: 82-76-9986Lsxccvwpbg and management of inpatientPAVeterans Health Administrationtart: 62-06-5128Wvbbfwtyhq and management of inpatientFADI SAFIAdams County Regional Medical Centertart: 01-16-2025 End: 00-20-4335Qxzjgivrtw and management of inpatientDOUGLAS HOWVUMedicine Barnesville Hospitaltart: 12-06-2024 End: 61-02-3727jwotkcxdviFHHRAshtabula County Medical Centertart: 10-27-2024 End: 39-99-3364feaiebvizdXQJMDelaware County Hospital CenterStart: 05-10-2023 End: 35-94-2893azhfvrlivhFetcdw Renetta Other [employer] Other Start: 95-06-8283Erjhbd outpatient new 20 minutes Monica [facility] ClydeStart: 27-11-7561Avzpvhxsh for other preprocedural examinationDR [facility] HospitalStart: 02-12-2023 Encounter for preprocedural laboratory examinationDR [facility] Hospitaltart: 02-06-2023 End: 84-04-6239ifeowtjibdXN LAUREN HOY .Facility:R9Kjxqq: 02-06-2023 End: 97-96-8493Shuidhsko for preprocedural laboratory examinationDR LAUREN HOY .Facility:Q6Ojvuy: 92-65-3338Xoebcaqja for general adult medical examination without abnormal findingsDR LAUREN HOY .[facility] HospitalStart: 01-14-2023 End: 04-77-2118vckseekoijYJ LAUREN HOY .Facility:B0Dizji: 01-14-2023 End: 65-77-5730Sfxvmrshg for general adult medical examination without abnormal findingsDR LAUREN HOY .Facility:H4Najkz: 01-09-2023 End: 66-57-4046uiyjgciptyKtajgqc R NILLFacility:[facility] Centertart: 01-09-2023 End: 91-72-0183Odfaydi encounter procedureMichael R NILL General Surgery Nill/Said [place] Start: 12-16-2022 End: 83-56-4802xiogavctawPV LAUREN HOY .Facility:Q8Rysus: 03-06-2022 End: 85-57-5551tenjswnwubWS LAUREN HOY .Facility:H1 Procedures DateProcedureProcedure DetailPerforming ClinicianStart: 62-77-8657ELR screening MONICA Michel on above:Performed By: #### PSASC #### [facility] [address] [place] [address] Dr. John Milligan reduction of fracture with internal fixationMichael NILL Comment on above:right arm Immunizations Immunization DateImmunizationNotesCare ProviderFacilityNEGATED: Highlighted row has not occurred!35-05-7626zrwmwzdyn virus vaccine, unspecified formulation Colt NILL General Surgery BodegaNEGATED: Highlighted row has not occurred!01-44-6511BLKK-CoV-2 mRNA (tozinameran 5y-11y) vaccineMichael NILL GeneSanta [facility] Hospital Medical Center Payers DatePayer CategoryPayerPolicy [id number] [id number] [id number] [id number] [id number] [id number] [id number]z-gbf6066184919-16-4629Pnhzqnv [id number] Social History DateTypeDetailFacilityStart: 58-09-0646Tqexkay smoking statusNever smoked tobacco (finding)General Surgery BellevueTobacco smoking statusNeverGeneral Surgery The [facility] Hospitalex Assigned At [facility] Functional Status VxyyAcnkqjmehcWuvcerUkmypcak70-08-4705Pgalbiduds StatusN/AGeneral Surgery [place] Clinical Notes 12-18-2022 to 07-11-2025 Note Date & PyylPbqcTrypyjll79-48-1604 NoteUT Electrophysiology Consult Note [facility] - [facility] Reason for visit: Device detected A-fib [...] hyperlipidemia AAA, DM 2 was [facility] to [facility] with underlying A-fib with RVR. He was placed on Cardizem which resulted in his heart rate dropping to 20 to 30 minutes and subsequent was transferred over to [facility] he underwent a cardiac cath which revealed normal coronaries. Given the persistence of bradycardia he was subsequently given a dual-chamber pacemaker by [place] dual-chamber pacemaker was placed on 01/17/2025 [...] Year: No Utilities: Not At Risk (01/16/2025) [facility] Utilities Threatened with loss of utilities: [...] in the morning. 30 tablet 0 HYDROcodone-acetaminophen ([place]) 5-325 mg tablet Take 1 tablet by [...] at bedtime. carvedilol (C (more content not included)...[facility] 05-31-2025 NoteATRIAL FIBRILLATION ABLATION PROCEDURE NOTE DATE OF PROCEDURE: 05/31/2025 PERFORMING PHYSICIAN: Dr. Darryn Alamo [employer]RUGATED FASTENER DRIVER: CHAYO CONSENT: Patient NAME OF THE PROCEDURE: [...] threshold were verified (more content not included)... [facility]08-27-2025 NotePatient: Flynn Arnett Procedure Summary Date: 05/31/25 Room / Location: [facility] GENERAL OFFICE DISPATCHER 1 EP / [facility] HVC VASCULAR LAB (Cath) Anesthesia Start: 1242 Anesthesia Stop: 155 Procedure: Ablation a-fib w/ pvi Diagnosis: Paroxysmal A-fib (CMS/HCC) (AFIB) Providers: Darryn Alamo MD Responsible Provider: Curt Azul MD Anesthesia [...] were no known notable events for this encounter.[facility]08-27-2025 NoteArterial Line: Date/Time: 05/31/2025 12:01 PM An arterial [...] And Ultrasound probe cover. VSS. Staffing Performed: resident/DIE CUTTING MACHINE OPERATOR/KATE Anesthesiologist: Sonja Mccarty MD Resident/DIE CUTTING MACHINE OPERATOR: Damien Barnes MD Performed by: Damien Barnes MD Authorized by: Sonja Mccarty MD[facility]25 NoteAirway Date/Time: 05/31/2025 1:07 PM Reason: elective Airway not difficult General Information and Staff Patient location during procedure: OR Anesthesiologist: Sonja Mccarty MD Performed: resident/DIE CUTTING MACHINE OPERATOR/KATE Patient Condition Indications for airway management: anesthesia [...] approach: 1 Number of other approaches attempted: [facility] NotePatient: Flynn Arnett Procedure Information Date/Time: 05/31/25 1130 Procedure: Ablation a-fib w/ pvi - PC APPROVED Location: [facility] GENERAL OFFICE DISPATCHER 1 / [facility] VASCULAR LAB (Cath) Providers: Darryn Alamo MD Relevant Problems Cardio (+) Angina pectoris, [...] Restless leg syndrome Sick sinus syndrome (CMS/HCC) Past Surgical History: Procedure Laterality Date CARDIAC [...] Dose Status amiodarone (Pacerone) 200 mg tablet [id number] Yes Take 1 tablet (200 mg) by mouth in the morning. Darryn Alamo MD 05/30/2025 Active apixaban (Eliquis) 5 mg tablet [id number] Yes Take 1 tablet (5 mg) by mouth two times daily. Darryn Alamo MD 05/30/2025 Morning Active aspirin 81 mg EC tablet [id number] Yes Take 81 mg by mouth in the morning. Historical MD Sammy 05/30/2025 Active carvedilol (Coreg) 3.125 mg tablet [id number] Take 1 tablet (3.125 mg) by mouth with breakfast and with evening meal. Patient not taking: Reported on 05/08/2025 Adonis Webster MD Active dapagliflozin propanediol (Farxiga) 10 mg [id number] Yes Take 1 tablet (10 mg) by mouth in the morning. Adonis Webster MD 05/30/2025 Active dilTIAZem CD (Cardizem CD) 120 mg 24 hr capsule [id number] Yes Take 1 capsule (120 mg) by mouth once daily as directed. Lauren Rdz CNP 05/30/2025 Active ezetimibe (Zetia) 10 mg tablet [id number] Take 1 tablet (10 mg) by mouth in the morning. Patient not taking: Reported on 03/07/2025 Stephane Vale, ASSISTANT THERAPY AIDE 03/07/25 2359 furosemide (Lasix) 20 mg tablet [id number] Take 1/2 tablet daily Patient not taking: Reported on 05/08/2025 Adonis Webster MD Active HYDROcodone-acetaminophen (Mount Joy) 5-325 mg tablet [id number] Yes Take 1 tablet by mouth every 4 (four) hours if needed. Historical Provider, Past Month Active lisinopril 10 mg tablet [id number] Yes Take 1 tablet (10 mg) by mouth in the morning. Adonis Webster MD 05/30/2025 Active metoprolol succinate XL (Toprol-XL) 25 mg 24 hr tablet [id number] Yes Take 1 tablet (25 mg) by mouth in the morning. STOP CARVEDILOL Lauren Rdz CNP 05/30/2025 Active pantoprazole (ProtoNix) 40 mg EC tablet [id number] Yes Take 40 mg by mouth before breakfast. Historical Provider, 05/30/2025 Active simvastatin (Zocor) 20 mg tablet [id number] Yes Take 20 mg by mouth at [...] 80 QT Interval 330 QTC CALCULATION(BAZETT) 481 R-Charlotte 62 T Wave Charlotte 87 Impression Atrial fibrillation with rapid ventricula (more content not included)...[facility]06-03-2025 NoteUT Electrophysiology Consult Note [facility] Cardiology - [facility] Reason for visit: Device detected A-fib HPI: Flynn Arnett is a 59 y.o. year old with past medical history of HFpEF, hypertension, severe MR s/p mitral valve repair/annuloplasty with left atrial appendage clip, PFO closure hyperlipidemia AAA, DM 2 was transferred from [facility] to [facility] with underlying A-fib with RVR. He was placed on Cardizem which resulted in his heart rate dropping to 20 to 30 minutes and subsequent was transferred over to [facility] he underwent a cardiac cath which revealed [...] Year: No Utilities: Not At Risk (01/16/2025) [facility] Utilities Threatened with loss of utilities: [...] daily as directed. 90 capsule 3 HYDROcodone-acetaminophen (Mount Joy) 5-325 mg tablet Take 1 tablet by [...] Cardiovascular Chest wall: Rate (more content not included)...[facility]05-15-2025 NotePatient here for follow up ED visit last week. Still having dizziness when standing up and walking. He states when he sits still he's fine. Yesterday he felt fine all day. Having SOB with exertion. Having chest pain right now w/ intermittent radiation to the left shoulder. Saw Dr. Rios this morning. He did take an extra dose of carvedilol a few hours ago due to palpitations. He did not check his HR.[facility]04-29-[facility] Chief Complaint: Follow up HPI: Flynn Arnett is a 59 y.o. male Patient here for follow up [facility]. Underwent heart cath and PPM implant. Still getting dizzy at times. He has apt with Dr. Alamo in March. Feels better than on admission; [...] regurgitation s/p mitral valve repair Essential hypertension Lxd-omdaafu-emhgklsys type 2 diabetes mellitus Discharge Disposition Home [...] HYDROcodone-acetaminophen 5-325 mg tablet Commonly known as: Mount Joy lisinopril 10 mg tablet Take 1 tablet (10 mg) by mouth in the morning. pantoprazole 40 mg EC tablet Commonly known as: ProtoNix simvastatin 20 mg tablet Commonly known as: Zocor Where to Get Your Medications These medications were sent to [facility] - [place], [place] - [address] [place] [address] [place] [address], [facility] [address] apixaban 5 mg tablet Activity Normal activity as tolerated Diet Patient currently has no discharge diet orders Allergies Patient has no known allergies. Hospital Course Flynn Arnett is a 59 y.o. adult with a past medical history of heart failure with preserved ejection fraction, hypertension, mitral valve prolapse with regurgitation s/p mitral valve repair, hyperlipidemia, ptk-nqpwlub-vpkgycwpd type 2 diabetes, AAA who presents as a transfer from [facility]. Patient developed left lower chest pain yesterday, [...] had racing heartbeat. He went to the [facility] with these complaints, where reportedly his heart [...] to 30 bpm. He was transferred to [facility] for higher level of care. At [facility], his heart rate was at his baseline [...] be working adequately. Du (more content not included)...[facility] 01-18-2025 NoteDUAL CHAMBER PACEMAKER IMPLANT PROCEDURE NOTE DATE OF PROCEDURE: 01/17/2025 PERFORMING PHYSICIAN: Dr. Darryn Alamo CONSENT: Patient LOCATION: EP Lab PROCEDURE PERFORMED: [...] using modified seldinger technique using a 5 Telugu micro-puncture needle on two occasions and 0.35 [...] for the device above the muscle. 6 Telugu Safesheaths were placed over the wire. An active fixation Biotronik pacing lead was then delivered through the 6Fsheath tothe right ventricle. After confirmation of lead position on orthogonal views ([place] and [place] to confirm septal position, the screw was [...] lead position on orthogonal views ([place] and [place]), the screw was activated. Good sensing parameters, [...] discharge or sooner for any concerns. Darryn Alamo MD Cardiac ElectrophysiologyUnMemorial [facility]04-16-2025 Note Attestation signed by Jonnathan Gee MD at 01/18/2025 9:33 PM I personally saw Mr. Arnett today with Dr. Sy and discussed his care with him. Cardiology Progress Note Subjective Patient seen at [...] 80 QT Interval 330 QTC CALCULATION(BAZETT) 481 R-Charlotte 62 T Wave Charlotte 87 Impression Atrial fibrillation with rapid ventricular [...] Bubble Study Result Date: 01/16/2025 1 1 [facility] Heart Station [address] [place] [address] [phone] (fax) Echocardiogram-[facility] Name: FLYNN ARNETT Study Date: 01/16/2025 02:51 PM B/P: 117 mmHg/76 mmHg HR: 54 bpm Date of : 1965 Location: [facility] Height: 69 in. Age: 59 year(s) Patient [...] mmHg RVSP 33 mmHg (more content not included)...[facility] 01-18-2025 Note Attestation signed by Champ Caceres MD at 01/18/2025 10:14 AM The patient was evaluated with the resident/fellow Flynn Arnett is a 59 y.o. adult with a past medical history of heart failure with preserved ejection fraction, hypertension, mitral valve prolapse with regurgitation s/p mitral valve repair, hyperlipidemia, kov-ghmqyfe-zevmbpmmv type 2 diabetes, AAA who presents as a transfer from [facility] for chest pain Critical Care services were [...] ASA and Liptor DVT and GI prophylaxis Medical ICU Progress Note Patient - Flynn Arnett Age - 59 [facility]. [facility] 1965 [id number] Date of Admission - 01/16/2025 2:24 PM HPI/Hospital Course Subjective Flynn Arnett is a 59 y.o. adult with a past medical history of heart failure with preserved ejection fraction, hypertension, mitral valve prolapse with regurgitation s/p mitral valve repair, hyperlipidemia, nsj-jgdymjb-einpcifrz type 2 diabetes, AAA who presents as a transfer from [facility]. Patient developed left lower chest pain yesterday, [...] had racing heartbeat. He went to the [facility] with these complaints, where reportedly his heart [...] to 30 bpm. He was transferred to [facility] for higher level of care. At [facility], his heart rate was at his baseline [...] 83 - 100 mm (more content not included)...[facility]04-15-2025 NotePatient: Flynn Arnett Procedure Information Date/Time: 01/17/25 1700 Procedure: Implant PPM Location: [facility] GENERAL OFFICE DISPATCHER 1 EP / [facility] VASCULAR LAB (Cath) Providers: Darryn Alamo MD Clinical information reviewed: Allergies Meds Physical Exam Airway Mallampati: II TM distance: >3 FB Neck ROM: full Cardiovascular Dental Pulmonary Abdominal Anesthesia Plan ASA 3 CSE Anesthetic plan and risks discussed with patient. Use of blood products discussed with patient who. Additional Equipment [facility]04-15-2025 Note Attestation signed by Jonnathan Gee MD at [...] dental care. He and his family understand. Cardiology Progress Note Subjective Patient seen at [...] Value Ventricular Rate 49 Atrial Rate 49 NE Interval 196 QRS DURATION 82 QT Interval 474 QTC CALCULATION(BAZETT) 428 P Charlotte -18 R-Charlotte 51 T Wave Charlotte 69 Impression Sinus bradycardia Nonspecific ST and T wave abnormality Abnormal ECG When compared with ECG of 16-JAN-2025 14:49, Premature atrial complexes are no longer Present No results found for: CKTOTAL , CKMB , CKMBINDEX , TROPONINI Limited Echo (TTE) w/wo Limited Doppler, Color Flow, Imaging Agent, Strain, 3D, Bubble Study Result Date: 01/16/2025 1 1 [facility] Heart Station [address] [facility] [place] [address] [phone] (fax) Echocardiogram-[facility] Name: FLYNN ARNETT Study Date: 01/16/2025 02:51 PM B/P: 117 mmHg/76 mmHg HR: 54 bpm Date of : 1965 Location: [facility] Height: 69 in. Age: 59 year(s) Patient [...] Global left ventricular sy (more content not included)...[facility] 01-17-2025 NotePatient: Flynn Arnett Procedure Information Date/Time: 01/17/251844 Procedure: Coronary angiography Location: [facility] GENERAL OFFICE DISPATCHER 3 / [facility] VASCULAR LAB (Cath) Providers: Reddy [...] who consented to blood products. Additional Equipment RequestsOhioHealth [facility] Hospital04-15-2025 Note Attestation signed by Champ Caceres MD at 01/18/2025 10:12 AM The patient was evaluated with the resident/fellow Flynn Arnett is a 59 y.o. adult with a past medical history of heart failure with preserved ejection fraction, hypertension, mitral valve prolapse with regurgitation s/p mitral valve repair, hyperlipidemia, dqi-xipzibs-naepouobb type 2 diabetes, AAA who presents as a transfer from [facility] for chest pain Critical Care services were [...] procedures, updating family, and teaching. Medical ICU Progress Note Patient - Flynn Arnett Age - 59 y.o. - 1965 [id number] [id number] Date of Admission - 01/16/2025 2:24 PM HPI/Hospital Course Subjective Flynn Arnett is a 59 y.o. adult with a past medical history of heart failure with preserved ejection fraction, hypertension, mitral valve prolapse with regurgitation s/p mitral valve repair, hyperlipidemia, nio-keiovib-qdwnecnqz type 2 diabetes, AAA who presents as a transfer from [facility]. Patient developed left lower chest pain yesterday, [...] had racing heartbeat. He went to the [facility] with these complaints, where reportedly his heart [...] to 30 bpm. He was transferred to [facility] for higher level of care. At [facility], his heart rate was at his baseline [...] is 101 kg (221 lb 9 oz). [facility]'s temporal temperature is 36.9 ???C (98.5 ???F). [facility]'s blood pressure is 126/81 and Flynn's pulse [...] 05/28/2023 61 (L) 83 (more content not included)...[facility]04-14-2025 NoteTentatively plan dual chamber pacemaker implant tomorrow for symptomatic bradycardia.[facility]04-14-2025 NoteGiven chest pain and shortness of breath with modest activity, especially with new bradycardia, plan coronary angiography tomorrow to exclude significant CAD that could explain symptoms and bradycardia.[facility] 12-06-2024 NoteUTP [facility] Patient here for follow up [...] Reported on 06/30/2023) 120 capsule 0 HYDROcodone-acetaminophen (Mount Joy) 5-325 mg tablet Take 1 tablet by [...] Mouth: Mucous membranes are (more content not included)...[facility]01-23-2025 NoteUTP [facility] NOTE Patient here for 6 mo follow up HFpEF, mitral valve disorder, hypertension, and aortic root dilatation. C/o intermittent chest pain and SOB w/ exertion. Says he saw Dr. Rios's nurse practitioner recently and she told him [...] less th (more content not included)... [facility]08-06-2023 Evaluation note* Encounter Date Diagnosis Assessment Notes Treatment Notes Treatment Clinical Notes May, Otalgia, left ear (ICD-10 - H92. 02) May,cute otitis externa of left ear, unspecified type (ICD-10 - H60.502)Otitis externa home care material was printed Plenty fluids, get plenty of rest. Take ibuprofen, 800 mg up to 3 times a day with food for mild tomoderate pain. For severe pain add 2 extra strength Tylenol to your ibuprofen dose. Use the ciprofloxacin eardrops as prescribed, use the Debrox eardrops as prescribed. You may stop the Levaquin tablets. Follow-up with your family physician if no improvement by tomorrow. You may also follow-up with an research computing specialist if no improvement. Go to the ER for worsening symptoms or concerns May,Left ear impacted cerumen (ICD-10 - H61.22)Cerumen impaction home care material was printed May,Right ear impacted cerumen (ICD-10 - H61.21) [facility] Other 04-07-2023 NoteChief Complaint consultation for umbilical hernia [facility] Staff 57 year old male presents on consultation from Dr. Rios for umbilical hernia. Reports umbilical bulge x [...] Colt Dudley, BETI Only if needed [address] [place] [address]- Additional Instructions: Problem List/Past Medical [...] Tobacco - Denies T (more content not included)...[facility] Comment on above:Result Comment: Electronically Signed By: Colt STUART MD\.br\Date and Time Signed: 01/09/23 15:56 [id number] Hospital Discharge instructions Follow Up Care 12/18/2022 13:20:00 With:NARCISO PEPE, BETI Lees Address: [address] [place] [id number]- When: only if needed General Surgery [place] Evaluation + Plan note No data available for this section General Surgery Flavia History general Narrative - Reported* Type Description Date Medical History GERD Medical HistoryHYPERLIPIDEMIAHospitalization HistoryKNEE CELLULITIS [facility] Other Progress note No data available for this section General Surgery [place] Summary Purpose Family History No Family History Records FoundNo Family History Records FoundNo Family History Records Found Advance Directives No Advanced Directives Records FoundNo Advanced Directives Records FoundNo Advanced Directives Records Found Additional Source Comments Patient Care team informatio n (unrecognized section and content) Personnel Name: Lauren Rios MD Address: Address: [address] [place] [address]- (unrecognized sect ion and content) No Status Records FoundNo Status Records FoundNo Status Records Found INFORMATION SOURCE (unrecogn ized section and content) DATE CREATED AUTHOR 01/11/2023 [facility] DATE CREATED AUTHOR AUTHOR'S ORGANIZ ATION 02/13/2023 [facility] DATE CREATED AUTHOR AUTHOR'S ORGANIZ ATION 07/28/2025 [facility] REASON FOR VISIT (unrecogniz ed section [...] BE BASED ON THE PRIMARY CLINICAL RECORDS. [employer] provides no warranty or guarantee of the accuracy or completeness of information in this document.
[2025-08-08 09:11] LABS: Alanine Aminotransferase 58 U/L (16-63); Albumin Globulin Ratio 1.3; Albumin Level 3.9 g/dL (3.4-5.0); Alkaline Phosphatase 74 U/L (46-116); Anion Gap 9.2; Aspartate Amino Transferase 23 U/L (15-37); Blood Urea Nitrogen 15.0 mg/dL (7.0-18.0); Calcium 8.5 mg/dL (8.5-10.1); Carbon Dioxide 27.9 mmol/L (21.0-32.0); Chloride 109 mmol/L (98-107); Estimated GFR (African America 56 (>=60 mL/min/1.73m^2); Estimated GFR (Non-African Ame 46 (>=60 mL/min/1.73m^2); Globulin 3.0 g/dL; Glucose 102 mg/dL (74-106); Potassium 4.1 mmol/L (3.5-5.1); Sodium 142 mmol/L (136-145); Total Protein 6.9 g/dL (6.4-8.2)
== END 2025-08-08 08:32 | disposition home or self-care (01) ==
LOC: LAB 08:34
PROVIDERS: PCP Family Medicine; Visit Provider Family Medicine
DX: Z79.899 Other long term (current) drug therapy (principal)
CPT/HCPCS: 36415; 80053